=== PATIENT | female | born 1950 | race Caucasian/White ===

== ENCOUNTER → 2016-12-01 | Outpatient (CLI) | payer MEDICAID ==
[~2016-12-01] MED LIST: ALBU8.5H2 IH; ALPR2TAB2; AMIT100T2; AMIT100T2 PO; ATEN-155 PO; ATEN100T88 PO; ATEN25TA PO; ATENOLOL; AZIT-21 PO; BACL10TA; BACL10TA PO; BACL20TA PO; BISO1TAB39; BISOPROLOL-HCTZ; BSP5T PO; BUTA-167; BUTA-167 PO; CATHETER FLUSH 10 ML SYR IV PRN; CEFD300C3 PO; CIPR500T4 PO; CIPR500T78 PO; CODE118S2 PO; CPR250T PO; CPR500T; CPR500T PO; CYCL10TA9 PO; CYCL5TAB PO; DCS100C PO; DIAZ10TA; DIAZ10TA PO; DIAZ2TAB2 PO; DIAZ5TAB3; DIAZ5TAB3 PO; DICY20TA10 PO; DOXY100C2 PO; DULO20CA PO; DULO60CA6 PO; EST.625T; EST.625T PO; EST45C VG; ESTR42.52 VG; EYE; FLT05NA16; FLUO20CA25; FURO20TA4 PO; GLYB1.253 PO; HYDR-2890 PO; HYDR-34 PO; HYDR-3454 PO; HYDR-3720 PO; HYDR12.56 PO; HYDR12.570; HYDR1TAB86 PO; HYDR50TA3 PO; IOHEXOL 350 MG/ML 100 ML (OMNIPAQUE 350) VIAL IV ONE; LANS30CA PO; LEVO250T11 PO; LEVO500T69 PO; LEVO750T6 PO; LNS30CCR; LNS30CCR PO; LVF500T; MECL12.579 PO; MECL25TA56; MELO-198 PO; NAPR500T72; NFR150C PO; NITR-65 PO; NITR100C; NITR100C10 PO; NITR100C3 PO; NITR50CA4 PO; NS 100 ML (IVPB) BAG IV ONE; OMEP-10 PO; ONDAN4ODT; ONDAN4ODT PO; OXB5T; OXYC-109 PO; OXYC-12 PO; OXYC-176; OXYC-190; OXYC1TAB3; PENT100C5 PO; PHEN100T26 PO; PHEN200T27; PHEN200T27 PO; PNT40TEC PO; PRD20T PO; PRED20TA PO; PREG150C; PREG225C PO; PREMARIN; SCOP1PAT TD; SULF1TAB38 PO; TRAM-21 PO; ZLP10T; ZLP10T PO; [UNRECOGNIZED DRUG - CODE]; [UNRECOGNIZED DRUG - REMARK]; macrobid
[2016-12-01 13:37] LABS: BLOOD UREA NITROGEN 17 MG/DL (7-18); CREATININE SERUM 0.88 MG/DL (0.60-1.30); GFR ESTIMATED > 60
--- NOTE | 2016-12-01 14:41 | Diagnostic Imaging Report ---
PROCEDURE: CT abdomen with contrast only. TECHNIQUE: Multiple contiguous axial images were obtained through the abdomen after the administration of intravenous contrast. INDICATION: Left flank pain. Comparison made to prior examination 04/15/2009. FINDINGS: The lung bases are clear. There is fatty infiltration of the liver. The gallbladder is unremarkable. There is no biliary ductal dilatation. Spleen is normal. The pancreas and adrenal glands are unremarkable. There are tiny cysts in the right kidney. There is slightly irregular perfusion in the superior aspect of the left kidney. This is nonspecific, however, may reflect pyelonephritis. Aorta is nonaneurysmal. The bowel gas pattern is nonspecific. There is no free air. There is no ascites. No focal inflammatory changes. There are degenerative changes in the spine. IMPRESSION: Fatty infiltration of the liver. Asymmetric perfusion in the superior aspect of the left kidney. This is nonspecific, however, may reflect focal pyelonephritis or less likely an infiltrative process. Recommend clinical correlation and if warranted followup with ultrasound correlation. Dictated by: Dictated on workstation # [id number]
== END ==
LOC: RAD 12:47
PROVIDERS: ATTEND Nurse Practitioner Community Health
DX: K76.0 Fatty (change of) liver, not elsewhere classified (principal); N28.9 Disorder of kidney and ureter, unspecified
CPT/HCPCS: 36415; 74160; 82565; 84520

== ENCOUNTER → 2016-12-06 | Outpatient (CLI) | payer MEDICAID ==
[~2016-12-06] MED LIST changes: -CATHETER FLUSH 10 ML SYR IV PRN; -IOHEXOL 350 MG/ML 100 ML (OMNIPAQUE 350) VIAL IV ONE; -NS 100 ML (IVPB) BAG IV ONE
[2016-12-06 13:34] LABS: BILIRUBIN,URINE NEGATIVE (NEGATIVE); KETONES,URINE NEGATIVE (NEGATIVE); LEUKOCYTE ESTERASE ,URINE 3+ (NEGATIVE); NITRITE,URINE NEGATIVE (NEGATIVE); PH,URINE 7 (5-9); PROTEIN,URINE NEGATIVE (NEGATIVE); UROBILINOGEN,URINE NORMAL (NORMAL)
[2016-12-06 13:44] LABS: WBC,URINE TNTC /HPF
[2016-12-06 13:45] LABS: RENAL EPITHELIAL CELLS,URINE 0-2 /HPF
== END ==
PROVIDERS: ATTEND Internal Medicine
DX: R93.49 Abnormal radiologic findings on diagnostic imaging of other urinary organs (principal)
CPT/HCPCS: 81000; 87088; 87186

== ENCOUNTER → 2017-06-21 | Outpatient (CLI) | payer MEDICAID ==
--- NOTE | 2017-06-21 09:52 | Diagnostic Imaging Report ---
INDICATION: Palpable lump in the right breast. COMPARISON: 01/02/2015 and 08/30/2013. TECHNIQUE: Digital diagnostic mammography was performed bilaterally with a Computer Aided Detection (CAD) system. FINDINGS: Moderate parenchymal densities are identified bilaterally. There is a circumscribed ovoid mass in the upper and slightly outer aspect of the right breast retroareolar region. This does have some benign-appearing calcifications along the margin. No other mass is seen. The overall parenchymal pattern is stable. The axillae are unremarkable. Benign calcifications on the left are noted. IMPRESSION: No mammographic features suspicious for malignancy are identified. Ultrasound of the area of palpable abnormality in the right breast is recommended for further evaluation. ACR BI-RADS Category 0: Incomplete. (Needs additional imaging evaluation). Result letter will be mailed to the patient. Note: At least 10% of breast cancer is not imaged by mammography. Dictated by: Dictated on workstation # [id number]
--- NOTE | 2017-06-21 12:07 | Diagnostic Imaging Report ---
INDICATION: Palpable lump in the right breast. COMPARISON: Correlation is made with the diagnostic mammogram from earlier the same day. FINDINGS: Sonographic interrogation of the area of palpable abnormality in the right breast was performed. This does correspond to the 9 o'clock location 3 cm from the nipple. There is an 8 mm x 6 mm x 7 mm hypoechoic mass at this location suggestive of a cyst. This does show some internal debris, consistent with a complex cyst. No other mass is identified. IMPRESSION: Complex cyst at the 9 o'clock location of the right breast corresponding to the patient's palpable abnormality. Continued followup right breast ultrasound in 3-6 months is recommended to confirm stability. ACR BI-RADS Category 3: Probably benign findings. Dictated by: Dictated on workstation # [id number]
== END ==
LOC: RAD 09:14
PROVIDERS: ATTEND Nurse Practitioner Community Health
DX: N60.01 Solitary cyst of right breast (principal)
CPT/HCPCS: 77066

== ENCOUNTER → 2017-06-23 | Outpatient (CLI) | payer MEDICAID ==
[2017-06-23 14:58] LABS: BILIRUBIN,URINE NEGATIVE (NEGATIVE); CLARITY,URINE CLEAR; COLOR,URINE YELLOW; GLUCOSE, URINE (UA) NEGATIVE (NEGATIVE); KETONES,URINE NEGATIVE (NEGATIVE); LEUKOCYTE ESTERASE ,URINE 2+ (NEGATIVE); NITRITE,URINE NEGATIVE (NEGATIVE); PH,URINE 7 (5-9); PROTEIN,URINE NEGATIVE (NEGATIVE); UROBILINOGEN,URINE NORMAL (NORMAL)
[2017-06-23 15:37] LABS: BACTERIA,URINE LARGE /HPF
== END ==
PROVIDERS: ATTEND Internal Medicine
DX: R30.0 Dysuria (principal); R35.0 Frequency of micturition; R39.15 Urgency of urination
CPT/HCPCS: 81000; 87077; 87088; 87186

== ENCOUNTER 2017-06-30 18:29 | Emergency (ER) | payer MEDICAID ==
[~2017-06-30] VITALS: Ht 165.1 cm; Wt 90.7 kg
--- OUTSIDE RECORDS SUMMARY | 2017-06-30 18:37 | XMS REPORT ---
Author ELAN Mcmahon [facility] eClinicalWorks Address Unknown Phone Unavailable Care Team Providers Care School Lunch Manager Name Role Phone ELAN DUMONT CP Unavailable Allergies, Adverse Reactions, Alerts Substance Reaction Event Type Sulfa(sulfonamide Antibiotics) Info Not Available Non Drug Allergy Penicillins Info Not Available Non Drug Allergy Problems Problem Type Condition Code Onset Dates Condition Status Assessment Neurogenic bladder N31.9 Active Assessment Lumbar disc disease M51.9 Active Assessment Polyneuropathy associated with underlying disease G63 Active Problem Lumbar disc disease M51.9 Active Problem Polyneuropathy associated with underlying disease G63 Active Problem Type 2 diabetes mellitus without complication, without long-term current use of insulin E11.9 Active Problem Pain in joint, ankle and foot 719.47 Active Assessment Type 2 diabetes mellitus without complication, without long-term current use of insulin E11.9 Active Problem Neurogenic bladder N31.9 Active Problem Hallux rigidus 735.2 Active Medications Medication Code System Code Instructions Start Date End Date Status Dosage Levsin [facility] [address]-37 0.125 MG Orally every 4 hrs as needed for restlesness, excessive secreations 1 tablet before meals as needed Hydrocodone-Acetaminophen [facility] [address]-34 5-325 MG Orally 3 times a day 1 tablet Dicyclomine HCl [facility] [address]-42 20 mg Orally 3 times a day 1 tablet Meloxicam [facility] [address]-23 7.5 MG Orally Once a day as needed for pain 1 tablet Omeprazole [facility] [address]-68 20 mg Orally Once a day 2 tablets Lyrica [facility] [address]-38 225 MG Orally 2 times a day 1 capsule Duloxetine HCl [facility] [address]-25 60 mg Orally Once a day 1 capsule Hydrochlorothiazide [facility] [address]-86 12.5 MG Orally twice a day 1 capsule Furosemide [facility] [address]-71 20 mg Orally Once a day 1 tablet Polysaccharide Iron Complex [facility] [address]-17 150 MG Orally Twice a day 1 capsule Glimepiride [facility] [address]-56 4 MG Orally Once a day 1 tablet with breakfast or the first main meal of the day Metformin HCl [facility] [address]-05 500 MG Orally Twice a day 1 tablet with meals Atenolol [facility] [address]-83 25 MG Orally Once a day 1 tablet Procedures Procedure Coding System Code Date LAB [facility] CPT-4 NOBLL Dec 31, 2015 VENIPUNCT, ROUTINE* CPT-4 09827 Dec 31, 2015 GLYCATED HEMOGLOBIN TEST CPT-4 34839 Dec 31, 2015 Office Visit, Est Pt., Level 3 CPT-4 97484 Dec 31, 2015 Vital Signs Date/Time: Dec 31, 2015 Cardiac Monitoring Heart Rate 80 bpm Weight 229.5 lbs Height 59.5 in BMI 45.57 Index Blood Pressure Diastolic 70 mmHg Blood Pressure Systolic 118 mmHg Results Name Result Date Reference Range Unit Abnormality Flag CMP ----Calcium, Serum 9.3 20151231 8.7-10.3 mg/dL ----Carbon Dioxide, Total 27 20151231 18-29 mmol/L ----ALT (SGPT) 25 20151231 0-32 IU/L ----Creatinine, Serum 0.76 20151231 0.57-1.00 mg/dL ----AST (SGOT) 23 20151231 0-40 IU/L ----eGFR If NonAfricn Am 82 [id number] >59 mL/min/1.73 ----Alkaline Phosphatase, S 94 20151231 39-117 IU/L ----eGFR If Africn Am 95 [id number] >59 mL/min/1.73 ----Bilirubin, Total 0.3 20151231 0.0-1.2 mg/dL ----BUN/Creatinine Ratio 13 20151231 11-26 ----A/G Ratio 1.7 20151231 1.1-2.5 ----Sodium, Serum 142 20151231 134-144 mmol/L ----Globulin, Total 2.6 20151231 1.5-4.5 g/dL ----Potassium, Serum 3.8 20151231 3.5-5.2 mmol/L ----Glucose, Serum 206 20151231 65-99 mg/dL H ----Chloride, Serum 98 20151231 97-108 mmol/L ----Albumin, Serum 4.3 20151231 3.6-4.8 g/dL ----BUN 10 20151231 8-27 mg/dL ----Protein, Total, Serum 6.9 20151231 6.0-8.5 g/dL ROUTINE VENIPUNCTURE A1C ----Hemoglobin A1c 7.1 20151231 4.8-5.6 % H Summary Purpose eClinicalWorks Submission
--- OUTSIDE RECORDS SUMMARY | 2017-06-30 18:37 | XMS REPORT ---
Author Author LAURIE MAHAJAN Organization [employer] Address Unknown Phone Unavailable Care Team Providers Care Laboratory Inspector Name Role Phone LAURIE MAHAJAN CP Unavailable Allergies No Known Allergies Problems Problem Type Condition Code Onset Dates Condition Status Problem Lumbar disc disease M51.9 Active Problem Polyneuropathy associated with underlying disease G63 Active Problem Type 2 diabetes mellitus without complication, without long-term current use of insulin E11.9 Active Problem Pain in joint, ankle and foot 719.47 Active Problem Neurogenic bladder N31.9 Active Problem Hallux rigidus 735.2 Active Medications Medication Code System Code Instructions Start Date End Date Status Dosage Seroquel [facility] [address]-80 25 MG Orally Once a day at Feb 10, 2016 1 tablet Results No Known Results Summary Purpose eClinicalWorks Submission
--- OUTSIDE RECORDS SUMMARY | 2017-06-30 18:37 | XMS REPORT | Clinical Summary ---
Author Author [facility] Address Unknown Phone Unavailable Care Team Providers Care Roll Line Operator Name Role Phone Nicholas Harper MD PCP Nicholas Harper MD Unavailable Emile Garcia MD Unavailable Aldo Berg MD Unavailable Adam Tirado MD Unavailable Christina Peañ RN Unavailable Unavailable Kamran Mcclain MD Unavailable Dann Moy MD Unavailable Lemuel Chavez MD Unavailable Sarah Talbert RN Unavailable Unavailable Source Comments Some departments are not documenting in the electronic medical record. If you do not see the information that you expected, contact Release of Information in the Health Information Management department at [phone] for further assistance in locating additional records.[facility] Allergies Active Allergy Reactions Severity Noted Date Comments Penicillins RASH Medium 01/31/2015 Penicillins ANAPHYLAXIS High 06/18/2014 Current Medications Prescription Sig. Disp. Refills Start End Date Status Date atenolol (TENORMIN) 25 mg Take 25 mg by mouth twice Active tablet daily. hydrochlorothiazide Take 12.5 mg by mouth Active (HYDRODIURIL) 12.5 mg Tab twice daily. tablet furosemide (LASIX) 20 mg Take 20 mg by mouth Active tablet daily. glyBURIDE (DIABETA) 1.25 Take 1.25 mg by mouth Active mg tablet twice daily with meals. polysaccharide iron Take 150 mg by mouth Active complex (POLY-IRON) 150 twice daily. mg iron capsule DULoxetine DR (CYMBALTA) Take 60 mg by mouth Active 60 mg capsule daily. pregabalin (LYRICA) 225 Take 225 mg by mouth Active mg capsule twice daily. estradiol (ESTRACE) 0.01 Insert or Apply 1 g to Active % (0.1 mg/g) vaginal vaginal area at bedtime cream as needed. Miscellaneous Medical Chux pads 1 box 100 Each 12 08/09/19 Active Supply pads 15 oxybutynin XL (DITROPAN Take 1 Tab by mouth 90 Tab 3 09/06/19 Active XL) 10 mg tablet daily. Do not cut/ crush/ 15 chew CYCLOBENZAPRINE HCL Take by mouth. Active (FLEXERIL PO) dicyclomine (BENTYL) 20 Take 20 mg by mouth every Active mg tablet 6 hours. glimepiride (AMARYL) 4 mg Take 4 mg by mouth daily Active tablet with breakfast. HYDROcodone/acetaminophen Take 1 Tab by mouth every Active (NORCO; VICODIN) 5-325 mg 4 hours as needed for tablet Pain lansoprazole DR(+) Take 30 mg by mouth Active (PREVACID) 30 mg capsule daily. metFORMIN-XR(+) Take 500 mg by mouth Active (GLUCOPHAGE XR) 500 mg daily with dinner. tablet omeprazole DR(+) Take 40 mg by mouth Active (PRILOSEC) 40 mg capsule daily. meloxicam (MOBIC) 7.5 mg Take 7.5 mg by mouth Active tablet daily. hyoscyamine (LEVSIN/SL) TAKE ONE TABLET BY MOUTH 30 Tab 3 05/14/19 Active 0.125 mg tablet EVERY FOUR HOURS 16 NEEDED FOR CRAMPS Active Problems Problem Noted Date Neurogenic bladder 08/29/2014 Overview: 08/29/14: VUDS showing normal capacity bladder with atonic bladder L ast Assessment & Plan: - Recommend continuing CIC QID instead of TID - Will have her return to clinic in 6 months for evaluation Closed fracture of right humerus 02/11/2012 Osteoarthrosis, unspecified whether generalized or localized, unspecified site Immunizations Name Dates Previously Given Next Due Pneumococcal Vaccine 02/04/2012 (23-Amanda Adult) Tdap Vaccine 02/04/2012 Family History Medical History Relation Name Comments Hypertension Father Asthma Mother Cancer Mother Seizures Mother Stroke Mother Relation Name Status Comments Father Mother Social History Tobacco Use Types Packs/Day Years Used Date Former Smoker 0.5 Comments: STOPS AND STARTS Alcohol Use Drinks/Week oz/Week Comments No 0 Standard 0.0 drinks or equivalent Sex Assigned at Date Recorded Not on file Last Filed Vital Signs Vital Sign Reading Time Taken Blood Pressure 124/86 07/25/2015 3:20 PM CDT Pulse 70 07/25/2015 3:20 PM CDT Temperature 36.7 C (98 F) 07/25/2015 3:05 PM CDT Respiratory Rate 18 07/25/2015 1:12 PM CDT Oxygen Saturation 96% 07/25/2015 3:20 PM CDT Inhaled Oxygen - - Concentration Weight 90.7 kg (200 lb) 07/25/2015 1:12 PM CDT Height 152.4 cm (5') 07/25/2015 1:12 PM CDT Body Mass Index 39.06 07/25/2015 1:12 PM CDT Plan of Treatment Health Maintenance Due Date Last Done Comments HEPATITIS C SCREENING 1949 PHYSICAL (COMPREHENSIVE) 1956 EXAM BREAST CANCER SCREENING 1989 COLORECTAL CANCER 12/07/1999 SCREENING SHINGLES VACCINE 2009 OSTEOPOROSIS SCREENING 2014 PREVNAR/PNEUMOVAX (#1) 2014 02/04/2012 INFLUENZA VACCINE 01/03/2018 TETANUS VACCINE 02/03/2022 02/04/2012 PERTUSSIS VACCINE Completed 02/04/2012 Results Not on filefrom Last 3 Months
--- OUTSIDE RECORDS SUMMARY | 2017-06-30 18:37 | XMS REPORT ---
Author Author LAURIE MAHAJAN [facility] Address [address] [place] [address] Care Team Providers Care Lawyer Real Estate Name Role Phone LAURIE MAHAJAN Unavailable PROBLEMS Type Condition ICD9-CM Code [id number] Code Onset Dates Condition Status SNOMED Code Assessment Other chronic pain G89.29 14 Dec, 2015 Active 50279635 Problem Type 2 diabetes mellitus without complication, without long-term current use of insulin E11.9 Active 167784183 Problem Lumbar disc disease M51.9 Active 53581178 Problem Hallux rigidus 735.2 Active 1268623 Problem Pain in joint, ankle and foot 719.47 Active 828524822 Problem Polyneuropathy associated with underlying disease G63 Active 916766583 Problem Neurogenic bladder N31.9 Active 524639456 ALLERGIES Unknown Allergies SOCIAL HISTORY No smoking Hx information available PLAN OF CARE VITAL SIGNS MEDICATIONS Medication Instructions Dosage Frequency Start Date End Date Duration Status Lyrica 225 MG Orally 2 times a day 1 capsule 12h 28 Active RESULTS No Results PROCEDURES No Known procedures IMMUNIZATIONS No Known Immunizations
--- OUTSIDE RECORDS SUMMARY | 2017-06-30 18:38 | XMS REPORT ---
Author Author ELAN DUMONT [facility] Address [address] [place] [address] Care Team Providers Care Claim Auditor Name Role Phone ELAN DUMONT Unavailable PROBLEMS Type Condition ICD9-CM Code [id number] Code Onset Dates Condition Status SNOMED Code Problem Fibromyalgia M79.7 Active 740567156 Problem Meniere disease, unspecified laterality H81.09 Active 90229412 Problem Irritable bowel syndrome with diarrhea K58.0 Active 952043740 Problem Psychosis, unspecified psychosis type F29 Active 94809672 Problem Nicotine abuse Z72.0 Active 36059195 Problem Chronic pain disorder G89.4 Active 308534014 Problem Other chronic pain G89.29 Active 86171433 Problem Insomnia, unspecified type G47.00 Active 072539391 Problem Polyneuropathy associated with underlying disease G63 Active 841620540 Problem Lumbar disc disease M51.9 Active 93603734 Problem Type 2 diabetes mellitus without complication, without long-term current use of insulin E11.9 Active 943556705 Problem Neurogenic bladder N31.9 Active 099654271 ALLERGIES Unknown Allergies SOCIAL HISTORY No smoking Hx information available PLAN OF CARE VITAL SIGNS MEDICATIONS Medication Instructions Dosage Frequency Start Date End Date Duration Status Mirtazapine 15 MG Orally Once a day 1 tablet at bedtime 24h Apr, 30 day(s) Active Atenolol 25 MG Orally Once a day 1 tablet 24h 30 days Active RESULTS No Results PROCEDURES No Known procedures IMMUNIZATIONS No Known Immunizations
--- OUTSIDE RECORDS SUMMARY | 2017-06-30 18:38 | XMS REPORT ---
Author Author ELAN DUMONT Organization [employer] Address Unknown Phone Unavailable Care Team Providers Care Field Crew Chief Name Role Phone ELAN DUMONT CP Unavailable Allergies No Known Allergies Problems Problem Type Condition Code Onset Dates Condition Status Problem Pain in joint, ankle and foot 719.47 Active Problem Hallux rigidus 735.2 Active Medications Medication Code System Code Instructions Start Date End Date Status Dosage Lyrica [facility] [address]-68 225 MG Orally Twice a day PT [facility] Dr[facility] Dumont to sign for Ilsa 1 capsule Hydrocodone-Acetaminophen [facility] [address]-22 5-325 MG Orally 3 times a day PT IN [facility] Dr. Dumont to sign for Ilsa 1 tablet Results No Known Results Summary Purpose eClinicalWorks Submission
--- OUTSIDE RECORDS SUMMARY | 2017-06-30 18:38 | XMS REPORT ---
Author Author LAURIE MAHAJAN Organization [employer] Address Unknown Phone Unavailable Care Team Providers Care Fuel Quality Tech Name Role Phone LAURIE MAHAJAN CP Unavailable [...] Instructions Start Date End Date Status Dosage Hydrocodone-Acetaminophen [facility] [address]-92 7.5-325 MG Orally 3 times a day 1 tablet Results No Known Results Summary Purpose eClinicalWorks Submission
--- OUTSIDE RECORDS SUMMARY | 2017-06-30 18:39 | XMS REPORT ---
Author Author ELAN DUMONT [facility] Address [address] [place] [address] Care Team Providers Care Reverse Unit Operator Name Role Phone ELAN DUMONT Unavailable PROBLEMS Type Condition ICD9-CM Code [id number] Code Onset Dates Condition Status SNOMED Code Problem Fibromyalgia M79.7 Active 695851585 Problem Meniere disease, unspecified laterality H81.09 Active 72571085 Problem Irritable bowel syndrome with diarrhea K58.0 Active 174425026 Problem Psychosis, unspecified psychosis type F29 Active 17661297 Problem Nicotine abuse Z72.0 Active 51835208 Problem Chronic pain disorder G89.4 Active 454762609 Problem Other chronic pain G89.29 Active 98062174 Problem Insomnia, unspecified type G47.00 Active 640654967 Problem Polyneuropathy associated with underlying disease G63 Active 155741117 Problem Lumbar disc disease M51.9 Active 44395924 Problem Type 2 diabetes mellitus without complication, without long-term current use of insulin E11.9 Active 456498530 Problem Neurogenic bladder N31.9 Active 641905771 ALLERGIES No Information SOCIAL HISTORY Never Assessed PLAN OF CARE VITAL SIGNS MEDICATIONS Medication Instructions Dosage Frequency Start Date End Date Duration Status Cipro 500 mg Orally Twice a day 1 tablet 12h August, August, 07 days Active RESULTS No Results PROCEDURES No Known procedures IMMUNIZATIONS No Known Immunizations MEDICAL (GENERAL) HISTORY Type Description Date Medical History Primary generalized osteoarthritis Medical History Type II Diabetes mellitus Medical History Anxiety disorder, unspecified Medical History chronic pain syndrome Medical History Meniere's disease Medical History Essential primary Hypertension Medical History Gastro-esophageal reflux disease without espophagitis Medical History Irritable bowel syndrome with diarrhea Medical History low back pain Medical History fibromyalgia Medical History cystitis, unspecified without hematuria Medical History bladder disorder unspecified Medical History personal history of urinary tract infections Medical History Psychosis, unspecified psychosis type Medical History Nicotine abuse Medical History Irritable bowel syndrome with diarrhea Medical History Chronic pain disorder Medical History Fibromyalgia Medical History Meniere disease, unspecified laterality Surgical History hysterectomy Surgical History Great toe on left foot has titanium in it. Surgical History appendectomy Surgical History ear surgery x 3 for Menieres Surgical History bladder fixed Surgical History rectocele/cystocele Surgical History broken humerous on right arm x 2 Hospitalization History low potassium Hospitalization History bladder issues Hospitalization History hallucinations
--- OUTSIDE RECORDS SUMMARY | 2017-06-30 18:39 | XMS REPORT ---
Author Author LAURIE MAHAJAN Organization [employer] Address Unknown Phone Unavailable Care Team Providers Care Sand Technologist Name Role Phone LAURIE MAHAJAN CP Unavailable Allergies No Known Allergies Problems Problem Type Condition Code Onset Dates Condition Status Problem Pain in joint, ankle and foot 719.47 Active Problem Hallux rigidus 735.2 Active Medications No Known Medications Results No Known Results Summary Purpose eClinicalWorks Submission
--- OUTSIDE RECORDS SUMMARY | 2017-06-30 18:39 | XMS REPORT ---
Author ELAN Mcmahon [facility] eClinicalWorks Address Unknown Phone Unavailable Care Team Providers Care Medical Education Specialist Name Role Phone ELAN DUMONT CP Unavailable [...]
--- OUTSIDE RECORDS SUMMARY | 2017-06-30 18:39 | XMS REPORT ---
Author Author [facility] Medical Staff Organization [facility] Address [address] [place], [place] [address] Phone [phone] Care Team Providers Care Motorcoach Driver Name Role Phone ELAN DUMONT MD PP [phone] Summary purpose [facility]A Sent to [facility] Chief Complaint and Reason for Visit No authorized Reason for Visit (Admitting Diagnosis) is available for this visit. Problem list No authorized problems tracked for continuity of care are available for this visit. Encounters No authorized problems tracked for encounter diagnoses are available for this visit. Medications No medications recorded for this patient visit Allergies, adverse reactions, alerts Allergen Category Ingredient Status Reaction Severity Onset Penicillins Drug Penicillins Active Sulfa (Sulfonamide Antibiotics) Drug Sulfa (Sulfonamide Antibiotics) Active Immunizations No immunizations recorded for this patient visit Relevant diagnostic tests and/or laboratory data No authorized results are available for this patient visit History of procedures Procedure Code Code Type Description Date Performed Performing Physician 17443 CPT-4 ELECTROCARDIOGRAM REPORT 03-04-2016 WINSTON SEYMOUR Functional status No functional or cognitive status observations are available for this visit. Vital signs No authorized vital signs are available for this visit. Social history No Social History or smoking status observations were recorded for this visit. ( Unknown if ever smoked.) Treatment Plan No treatment plan text is available for this visit. Hospital discharge instructions No discharge instruction text is available for this visit.
--- OUTSIDE RECORDS SUMMARY | 2017-06-30 18:39 | XMS REPORT ---
Author Author LAURIE MAHAJAN [facility] Address [address] [place] [address] Care Team Providers Care Hazardous Waste Technician Name Role Phone LAURIE MAHAJAN Unavailable PROBLEMS Type Condition ICD9-CM Code [id number] Code Onset Dates Condition Status SNOMED Code Problem Fibromyalgia M79.7 Active 422976009 Problem Meniere disease, unspecified laterality H81.09 Active 90417612 Problem Irritable bowel syndrome with diarrhea K58.0 Active 241358991 Problem Psychosis, unspecified psychosis type F29 Active 79240499 Problem Nicotine abuse Z72.0 Active 24089069 Problem Chronic pain disorder G89.4 Active 634063863 Problem Other chronic pain G89.29 Active 97462364 Problem Insomnia, unspecified type G47.00 Active 788565000 Problem Polyneuropathy associated with underlying disease G63 Active 918514117 Problem Lumbar disc disease M51.9 Active 96621436 Problem Type 2 diabetes mellitus without complication, without long-term current use of insulin E11.9 Active 230708964 Problem Neurogenic bladder N31.9 Active 270810438 ALLERGIES No Information SOCIAL HISTORY Never Assessed PLAN OF CARE VITAL SIGNS MEDICATIONS Medication Instructions Dosage Frequency Start Date End Date Duration Status Hydrocodone-Acetaminophen 7.5-325 MG Orally 3 times a day 1 tablet 8h August, 28 days Active RESULTS No Results PROCEDURES No [...]
--- OUTSIDE RECORDS SUMMARY | 2017-06-30 18:39 | XMS REPORT ---
Author Author LAURIE MAHAJAN [facility] Address [address] [place] [address] Care Team Providers Care Research & Insights Executive Name Role Phone LAURIE MAHAJAN Unavailable PROBLEMS Type Condition ICD9-CM Code [id number] Code Onset Dates Condition Status SNOMED Code Problem Fibromyalgia M79.7 Active 122696999 Problem Meniere disease, unspecified laterality H81.09 Active 99601430 Problem Irritable bowel syndrome with diarrhea K58.0 Active 393093536 Problem Psychosis, unspecified psychosis type F29 Active 36330328 Problem Nicotine abuse Z72.0 Active 04921939 Problem Chronic pain disorder G89.4 Active 777580101 Problem Other chronic pain G89.29 Active 39634339 Problem Insomnia, unspecified type G47.00 Active 185595957 Problem Polyneuropathy associated with underlying disease G63 Active 874908041 Problem Lumbar disc disease M51.9 Active 95143808 Problem Type 2 diabetes mellitus without complication, without long-term current use of insulin E11.9 Active 290161893 Problem Neurogenic bladder N31.9 Active 309741420 ALLERGIES Unknown Allergies SOCIAL HISTORY No smoking Hx information available PLAN OF CARE VITAL SIGNS MEDICATIONS Medication Instructions Dosage Frequency Start Date End Date Duration Status Pantoprazole Sodium 40 mg Orally Once a day 1 tablet 24h 30 days Active RESULTS No Results PROCEDURES No Known procedures IMMUNIZATIONS No Known Immunizations
--- OUTSIDE RECORDS SUMMARY | 2017-06-30 18:39 | XMS REPORT ---
Author Author LAURIE MAHAJAN [facility] Address [address] [place] [address] Care Team Providers Care Cookie Breaker Name Role Phone LAURIE MAHAJAN Unavailable PROBLEMS Type Condition ICD9-CM Code MJP83-[id number] Code Onset Dates Condition Status SNOMED Code Problem Fibromyalgia M79.7 Active 052948894 Problem Meniere disease, unspecified laterality H81.09 Active 75210653 Problem Irritable bowel syndrome with diarrhea K58.0 Active 479471521 Problem Psychosis, unspecified psychosis type F29 Active 60480559 Problem Nicotine abuse Z72.0 Active 81900242 Problem Chronic pain disorder G89.4 Active 786206721 Problem Other chronic pain G89.29 Active 05281560 Problem Insomnia, unspecified type G47.00 Active 088272312 Problem Polyneuropathy associated with underlying disease G63 Active 053922192 Problem Lumbar disc disease M51.9 Active 89563084 Problem Type 2 diabetes mellitus without complication, without long-term current use of insulin E11.9 Active 976512931 Problem Neurogenic bladder N31.9 Active 662272068 ALLERGIES No Information SOCIAL HISTORY Never Assessed PLAN OF CARE VITAL SIGNS MEDICATIONS Medication Instructions Dosage Frequency Start Date End Date Duration Status Furosemide 20 mg Orally Once a day 1 [...]
--- OUTSIDE RECORDS SUMMARY | 2017-06-30 18:39 | XMS REPORT ---
Author Author LAURIE MAHAJAN Organization [employer] Address Unknown Phone Unavailable Care Team Providers Care Underground Electrician Name Role Phone LAURIE MAHAJAN CP Unavailable Allergies No Known Allergies Problems Problem Type Condition Code Onset Dates Condition Status Assessment Insomnia, unspecified type G47.00 Active Assessment Swelling of face R22.0 Active Problem Type 2 diabetes mellitus without complication, without long-term current use of insulin E11.9 Active Problem Lumbar disc disease M51.9 Active Problem Insomnia, unspecified type G47.00 Active Problem Hallux rigidus 735.2 Active Problem Pain in joint, ankle and foot 719.47 Active Problem Polyneuropathy associated with underlying disease G63 Active Problem Neurogenic bladder N31.9 Active Medications No Known Medications Procedures Procedure Coding System Code Date Stable Visit (10 minutes) CPT-4 88194 Feb 19, 2016 Results No Known Results Summary Purpose [employer] Submission
--- OUTSIDE RECORDS SUMMARY | 2017-06-30 18:40 | XMS REPORT ---
Author Author LAURIE MAHAJAN [facility] Address [address] [place] [address] Care Team Providers Care Networking Technology Instructor Name Role Phone LAURIE MAHAJAN Unavailable PROBLEMS Type Condition ICD9-CM Code ZBX97-MU Code Onset Dates Condition Status SNOMED Code Problem Chronic pain disorder G89.4 Active 996779135 Problem Meniere disease, unspecified laterality H81.09 Active 84427050 Problem Fibromyalgia M79.7 Active 473660499 Problem Psychosis, unspecified psychosis type F29 Active 78348686 Problem Nicotine abuse Z72.0 Active 63800508 Problem Irritable bowel syndrome with diarrhea K58.0 Active 059042146 Problem Other chronic pain G89.29 Active 10122935 Problem Insomnia, unspecified type G47.00 Active 288457912 Problem Polyneuropathy associated with underlying disease G63 Active 213114008 Problem Neurogenic bladder N31.9 Active 718471913 Problem Type 2 diabetes mellitus without complication, without long-term current use of insulin E11.9 Active 481140886 Problem Lumbar disc disease M51.9 Active 99715710 ALLERGIES Unknown Allergies SOCIAL HISTORY No smoking Hx information available PLAN OF CARE VITAL SIGNS MEDICATIONS Unknown Medications RESULTS No Results PROCEDURES No Known procedures IMMUNIZATIONS No Known Immunizations
--- OUTSIDE RECORDS SUMMARY | 2017-06-30 18:40 | XMS REPORT ---
Author Author LAURIE MAHAJAN [facility] Address [address] [place] [address] Care Team Providers Care Right Of Way Appraiser Name Role Phone LAURIE MAHAJAN Unavailable PROBLEMS Type Condition ICD9-CM Code RNN88-JP Code Onset Dates Condition Status SNOMED Code Problem Pain in joint, ankle and foot 719.47 Active 934108870 Problem Insomnia, unspecified type G47.00 Active 643738908 Problem Type 2 diabetes mellitus without complication, without long-term current use of insulin E11.9 Active 173368834 Problem Neurogenic bladder N31.9 Active 619407141 Problem Hallux rigidus 735.2 Active 1929580 Problem Lumbar disc disease M51.9 Active 75321505 Problem Polyneuropathy associated with underlying disease G63 Active 501352675 ALLERGIES Unknown Allergies SOCIAL HISTORY No smoking Hx information available PLAN OF CARE VITAL SIGNS MEDICATIONS Medication Instructions Dosage Frequency Start Date End Date Duration Status Hydrocodone-Acetaminophen 7.5-325 MG Orally 3 times a day 1 tablet 8h 30 days Active RESULTS No Results PROCEDURES No Known procedures IMMUNIZATIONS No Known Immunizations
--- OUTSIDE RECORDS SUMMARY | 2017-06-30 18:40 | XMS REPORT ---
Author Author LAURIE MAHAJAN [facility] Address [address] [place] [address] Care Team Providers Care Load Builder Name Role Phone LAURIE MAHAJAN Unavailable PROBLEMS Type Condition ICD9-CM Code OYW76-HX Code Onset Dates Condition Status SNOMED Code Assessment Gastroesophageal reflux disease without esophagitis K21.9 Nov, Active 577382971 Assessment Essential hypertension I10 Nov, Active 86007882 Assessment Anxiety F41.9 Nov, Active 17926866 Assessment Iron deficiency anemia, unspecified iron deficiency anemia type D50.9 Nov, Active 77778554 Assessment Chronic urinary tract infection N39.0 Nov, Active 579365032 Assessment Irritable bowel syndrome, unspecified type K58.9 Nov, Active 10570142 Problem Hallux rigidus 735.2 Active 4496768 Problem Pain in joint, ankle and foot 719.47 Active 154047889 Assessment Sciatica, right side M54.31 Nov, Active 33505372 Assessment Sciatica of left side M54.32 Nov, Active 09378764 Assessment Type 2 diabetes mellitus without complication, without long-term current use of insulin E11.9 Nov, Active 535205639 Assessment Other chronic pain G89.29 Nov, Active 31295139 ALLERGIES Unknown Allergies SOCIAL HISTORY No smoking Hx information available PLAN OF CARE VITAL SIGNS MEDICATIONS Medication Instructions Dosage Frequency Start Date End Date Duration Status Nystatin 989183 UNIT/GM Externally Twice a day 1 application to affected area 12h 18 Nov, 2015 Active Levsin 0.125 MG Orally every 4 hrs as needed for restlesness, excessive secreations 1 tablet before meals as needed Active Lyrica 225 MG Orally 2 times a day 1 capsule 12h 28 Active Meloxicam 7.5 MG Orally Once a day as needed for pain 1 tablet Active Omeprazole 20 mg Orally Once a day 2 tablets 24h Active Nitrofurantoin Macrocrystal 50 mg Orally Once a day 1 capsule with food or milk 24h Active Metformin HCl 500 MG Orally Twice a day 1 tablet with meals 12h Active Duloxetine HCl 60 mg Orally Once a day 1 capsule 24h Active Furosemide 20 mg Orally Once a day 1 tablet 24h Active Hydrochlorothiazide 12.5 MG Orally twice a day 1 capsule 12h Active Glimepiride 4 MG Orally Once a day 1 tablet with breakfast or the first main meal of the day 24h Active Atenolol 25 MG Orally Once a day 1 tablet 24h Active Hydrocodone-Acetaminophen 5-325 MG Orally 3 times a day 1 tablet 8h Active Dicyclomine HCl 20 mg Orally 3 times a day 1 tablet 8h Active Polysaccharide Iron Complex 150 MG Orally Twice a day 1 capsule 12h Active RESULTS No Results PROCEDURES Procedure Date Ordered Related Diagnosis Body Site Nursing Facility Discharge (30 minutes) Dec 02, 2015 IMMUNIZATIONS No Known Immunizations
--- OUTSIDE RECORDS SUMMARY | 2017-06-30 18:40 | XMS REPORT ---
Author Author LAURIE MAHAJAN Organization [facility] Address [address] [place] [address] Care Team Providers Care Singeing Torch Operator Name Role Phone LAURIE MAHAJAN Unavailable PROBLEMS Type Condition ICD9-CM Code CJM02-RL Code Onset Dates Condition Status SNOMED Code Problem Irritable bowel syndrome with diarrhea K58.0 Active 167032452 Problem Lumbar disc disease M51.9 Active 67114778 Problem Psychosis, unspecified psychosis type F29 Active 76131052 Problem Meniere disease, unspecified laterality H81.09 Active 18948204 Problem Nicotine abuse Z72.0 Active 66858351 Problem Chronic pain disorder G89.4 Active 978612604 Problem Fibromyalgia M79.7 Active 239354785 Problem Gastroesophageal reflux disease without esophagitis K21.9 Active 254196792 Problem Other chronic pain G89.29 Active 20340562 Problem Neurogenic bladder N31.9 Active 998359535 Problem Polyneuropathy associated with underlying disease G63 Active 541613423 Problem Insomnia, unspecified type G47.00 Active 525537497 Problem Type 2 diabetes mellitus without complication, without long-term current use of insulin E11.9 Active 229903522 ALLERGIES No Information ENCOUNTERS Encounter Location Date Diagnosis [place] [address] [place] [address] Jun, [place] [address], [place] [address] Jun, Fibromyalgia M79.7 [place] [address] [place] [address]77- 9037 12 Jun, 2017 Breast mass, right N63.10 [place] [address] [place] [address]37- 3330 Jun, Breast mass, right N63.[address] [id number] Jun, Breast mass, right N63.10 ; Type 2 diabetes mellitus without complication , without long-term current use of insulin E11.9 and Fibromyalgia M79.7 [facility] [address] [address] Jun, Gastroesophageal reflux disease without esophagitis K21.9 [facility] [address] [place] [id number] [place] [phone] Jun, Lumbar disc disease M51.9 [facility] [address] [address] May, [facility] [id number] [place] [address] [id number] May, [facility] [id number] [place] [address] [phone] May, [facility] [id number] [place] [address] [id number] May, Lumbar disc disease M51.9 [facility] [id number] [place] [address] [id number] Apr, [facility] [address] [id number] Apr, Viral upper respiratory tract infection J06.9 and Impacted cerumen, bilateral H61.23 [facility] [address] [address] [id number] [place] [address] [id number] Apr, [facility] [address] [place] [id number], [place] [address] Apr, [facility] [id number] [place] [address] [id number] Apr, Lumbar disc disease M51.[address] [id number] Mar, Lumbar disc disease M51.9 and Fibromyalgia M79.7 [facility] [address] [place] [address] 01240- 0166 Mar, [facility] [address] [id number] [id number] Feb, [facility] [address] [facility] [id number], [place] [address] Jan, Type 2 diabetes mellitus without complication, without long- term current use of insulin E11.9 [facility] [address] [place] [phone] Jan, Type 2 diabetes mellitus without complication, without long-term current use of insulin E11.9 ; Fibromyalgia M79.7 and Lumbar disc disease M51.9 [facility] [address] [id number] [id number] Jan, [facility] [id number][place] [id number] Jan, [facility] [address] [place] [address] [id number], [place] [address] 2546 Dec, [facility] [id number] [id number] Dec, [facility] [address] [place] [id number] [id number] Dec, [facility] [id number] [id number] Nov, Pre-procedure lab exam Z01.812 [facility] [address] [place] [id number], [place] [address]46 Nov, Ventral hernia without obstruction or gangrene K43.9 [facility] [address] [id number][place] [id number] Nov, [facility] [address] [id number] [id number] Nov, [facility] [address] [place] [id number] Nov, Ventral hernia without obstruction or gangrene K43.9 [facility] [address] [place] [id number] Nov, Fibromyalgia M79.7 and Polyneuropathy associated with underlying disease G63 [facility] [place] [address] [facility] [id number], [place] [address] Oct, [facility] [address] [id number][place] [id number] Oct, [facility] [address] [id number][place] [id number] Oct, [facility] [address] [id number], [place] [id number] Oct, [facility] [address] [place] [id number][place] [id number] Sep, [facility] [place] [address] [facility] [id number], [place] [address] Sep, [facility] [place] [address], [place] [address] Sep, [facility] [place] [address] [place] [id number], [place] [address] August, [facility] [address] [place] [id number] August, Right medial knee pain M25.561 [facility] [address] [id number], [place] [address] August, [facility] [place] [address] [place] [id number], [place] [address] August, [facility] [place] [address] [facility] [id number], [place] [address]- [address] August, [facility] [address] [id number], [place] [id number] August, [facility] [place] [address] [facility] [id number], [place] [address]- [address] August, [facility] [address] [place] [id number][place] [id number] August, [facility] [address] [id number][place] [id number] Jul, [facility] [address] [facility] [id number] [place] [address] Jul, [facility] [address] [id number], [place] [id number] Jul, [facility] [address] [facility] [id number] [place] [address]- [address] Jun, [facility] [address] [id number] [place] [address]- 25[address] Jun, [facility] [address] [facility] [id number] [place] [address]- [address] May, [facility] [address] [facility] [id number] [place] [address] 2546 May, [facility] [id number] [place] [address]- 67[address] May, [facility] [address] [place] [id number], [place] [address] May, [facility] [address] [place] [id number], [place] [address] Apr, [facility] [address] [place] [id number] Apr, Upper respiratory infection with cough and congestion J06.9 [facility] [address] [place] [id number], [place] [id number] Apr, [facility] [address] [facility] [id number], [place] [address] 2546 Apr, [facility] [address] [id number], [place] [address] 2546 Mar, [facility] [address] [facility] [id number] [address]- [address] Mar, [facility] [address] [id number], [place] [address] Mar, Other chronic pain G89.29 [facility] [address] [id number] [place] [address] 70010- 6988 Mar, [facility] [id number] [place] [address] 65327- 9477 Mar, [facility] [address] [id number] [place] [address] 40777- 0755 Feb, [facility] [id number] [place] [address] 25692- 4470 Feb, [facility] [address] [place] [id number] Feb, Insomnia, unspecified type G47.00 and Swelling of face R22.0 [facility] [id number] [place] [address] 50017- 6653 Feb, [facility] [id number] [place] [address] 88239- 9733 Feb, [facility] [id number] [place] [address] 45117- 2873 Feb, [facility] [id number] [place] [address] 99787- 0049 Feb, [facility] [id number] [place] [address] 86767- 7194 24 Jan, 2016 [facility] [id number] [place] [address] 36020- 2647 17 Jan, 2016 [facility] [id number] [place] [address] 42143- 0057 14 Jan, 2016 Neurogenic bladder N31.9 [facility] [address] [id number] [place] [address] 72945- 1871 10 Jan, 2016 [facility] [address] [place] [id number] [place] [address] 80174- 8058 07 Jan, 2016 [facility] [address] [place] [id number] [place] [address] 05278- 9501 Jan, [place] [address], [place] [address]- [address] Jan, [place] [address] [place] [id number] [place] [address] 53626- 5350 Jan, Screening for breast cancer Z12.39 [place] [address] [place] [id number] [place] [address] 39580- 9593 Jan, [place] [address] [place] [id number] [place] [address] 39271- 1976 Dec, Type 2 diabetes mellitus without complication, without long- term current use of insulin E11.9 ; Lumbar disc disease M51.9 ; Polyneuropathy associated with underlying disease G63 and Neurogenic bladder N31.9 [place] [address] [place] [address] 40153- 8672 16 Dec, 2015 [place] [address] [place] [id number] [place] [address] 36946- 7607 Dec, Other chronic pain G89.29 [place] [address] [place] [id number] [place] [address] 32482- 1433 Dec, [place] [address] [place] [id number] [place] [address] 95567- 2527 Nov, [place] [address], [place] [address]- 1259 Nov, [place] [address] [place] [address] 28445- 9683 Nov, Type 2 diabetes mellitus without complication, without long- term current use of insulin E11.9 ; Other chronic pain G89.29 ; Sciatica, right side M54.31 ; Sciatica of left side M54.32 ; Essential hypertension I10 ; Anxiety F41.9 ; Gastroesophageal reflux disease without esophagitis K21.9 ; Irritable bowel syndrome, unspecified type K58.9 ; Chronic urinary tract infection N39.0 and Iron deficiency anemia, unspecified iron deficiency anemia type D50.9 [place] [address], [place] [address]- [address] Nov, [facility] [address], [place] [address]- 5020 Nov, [facility] [address] [facility] [id number], [place] [address]- 1670 Nov, [facility] [address], [place] [address]- 7456 Nov, [facility] [address] [facility] [id number], [place] [address]- 7726 Nov, [facility] [address], [place] [address]- 7812 Nov, [facility] [address], [place] [address]- 1872 Nov, [facility] [address], [place] [address]- 6347 Jul, [facility] [address], [place] [address]- 5456 Jul, [facility] [address], [place] [address]- 6694 August, [facility] [address], [place] [address]- 0780 Jun, [facility] [address] [id number], [place] [address] 4824 Oct, IMMUNIZATIONS No Known Immunizations SOCIAL HISTORY Never Assessed REASON FOR VISIT Controlled Med Refill PLAN OF CARE VITAL SIGNS MEDICATIONS Medication Instructions Dosage Frequency Start Date End Date Duration Status Hydrocodone-Acetaminophen 7.5-325 MG Orally 3 times a day 1 tablet 8h Sep, 28 days Active RESULTS No Results PROCEDURES No Known procedures INSTRUCTIONS MEDICATIONS ADMINISTERED No Known Medications MEDICAL (GENERAL) HISTORY Type Description Date Medical [...]
--- OUTSIDE RECORDS SUMMARY | 2017-06-30 18:40 | XMS REPORT ---
Author Author LAURIE MAHAJAN [facility] Address [address] [place] [address] Care Team Providers Care Home Health Attendant Name Role Phone LAURIE MAHAJAN Unavailable PROBLEMS Type Condition ICD9-CM Code EEV51-CA Code Onset Dates Condition Status SNOMED Code Problem Fibromyalgia M79.7 Active 164186806 Problem Meniere disease, unspecified laterality H81.09 Active 36723765 Problem Irritable bowel syndrome with diarrhea K58.0 Active 613760084 Problem Psychosis, unspecified psychosis type F29 Active 90332347 Problem Nicotine abuse Z72.0 Active 04490084 Problem Chronic pain disorder G89.4 Active 757640980 Problem Other chronic pain G89.29 Active 34942418 Problem Insomnia, unspecified type G47.00 Active 869736940 Problem Polyneuropathy associated with underlying disease G63 Active 790731124 Problem Lumbar disc disease M51.9 Active 74800516 Problem Type 2 diabetes mellitus without complication, without long-term current use of insulin E11.9 Active 588337460 Problem Neurogenic bladder N31.9 Active 398782242 ALLERGIES No Information SOCIAL HISTORY Never Assessed PLAN OF CARE VITAL SIGNS MEDICATIONS Medication Instructions Dosage Frequency Start Date End Date Duration Status Hydrochlorothiazide 12.5 MG Orally twice a day 1 capsule 12h 30 days Active RESULTS No Results PROCEDURES [...]
--- OUTSIDE RECORDS SUMMARY | 2017-06-30 18:40 | XMS REPORT ---
Author Author LAURIE MAHAJAN [facility] Address [address] [place] [address] Care Team Providers Care Attendance Secretary Name Role Phone LAURIE MAHAJAN Unavailable PROBLEMS Type Condition ICD9-CM Code [id number] Code Onset Dates Condition Status SNOMED Code Problem Type 2 diabetes mellitus without complication, without long-term current use of insulin E11.9 Active 926091093 Problem Lumbar disc disease M51.9 Active 92734529 Problem Hallux rigidus 735.2 Active 6468365 Problem Pain in joint, ankle and foot 719.47 Active 418146125 Problem Polyneuropathy associated with underlying disease G63 Active 648187320 Problem Neurogenic bladder N31.9 Active 093951049 ALLERGIES Unknown Allergies SOCIAL HISTORY No smoking Hx information available PLAN OF CARE VITAL SIGNS MEDICATIONS Unknown Medications RESULTS No Results PROCEDURES No Known procedures IMMUNIZATIONS No Known Immunizations
--- OUTSIDE RECORDS SUMMARY | 2017-06-30 18:40 | XMS REPORT ---
Author Author LAURIE MAHAJAN [facility] Address [address] [place] [address] Care Team Providers Care Assistant Foreman Name Role Phone LAURIE MAHAJAN Unavailable PROBLEMS Type Condition ICD9-CM Code OUU91-MI Code Onset Dates Condition Status SNOMED Code Problem Fibromyalgia M79.7 Active 192600585 Problem Meniere disease, unspecified laterality H81.09 Active 38838594 Problem Irritable bowel syndrome with diarrhea K58.0 Active 920173355 Problem Psychosis, unspecified psychosis type F29 Active 11202256 Problem Nicotine abuse Z72.0 Active 04171869 Problem Chronic pain disorder G89.4 Active 630501036 Problem Other chronic pain G89.29 Active 14447372 Problem Insomnia, unspecified type G47.00 Active 924505645 Problem Polyneuropathy associated with underlying disease G63 Active 023654546 Problem Lumbar disc disease M51.9 Active 33326669 Problem Type 2 diabetes mellitus without complication, without long-term current use of insulin E11.9 Active 073751541 Problem Neurogenic bladder N31.9 Active 994858384 ALLERGIES No Information SOCIAL HISTORY Never Assessed PLAN OF CARE VITAL SIGNS MEDICATIONS Medication Instructions Dosage Frequency Start Date End Date Duration Status Meclizine HCl 12.5 MG Orally Once a day 2 tablets as needed 24h August, 30 day(s) Active RESULTS No Results PROCEDURES No Known [...]
--- OUTSIDE RECORDS SUMMARY | 2017-06-30 18:40 | XMS REPORT ---
Author ELAN Mcmahon [facility] [employer] Address Unknown Phone Unavailable Care Team Providers Care Legal Biller Name Role Phone ELAN DUMONT CP Unavailable [...] Start Date End Date Status Dosage Hydrocodone-Acetaminophen [facility] [address]-11 7.5-325 MG Orally 3 times a day 1 tablet Results No Known Results Summary Purpose [employer]Clinical[employer] Submission
--- OUTSIDE RECORDS SUMMARY | 2017-06-30 18:40 | XMS REPORT ---
Author Author ELAN DUMONT [facility] Address [address] [place] [address] Care Team Providers Care Medical Or Surgical Instrument Maker Name Role Phone ELAN DUMONT Unavailable PROBLEMS Type Condition ICD9-CM Code GHA73-RO Code Onset Dates Condition Status SNOMED Code Problem Fibromyalgia M79.7 Active 164382532 Problem Meniere disease, unspecified laterality H81.09 Active 95955304 Problem Irritable bowel syndrome with diarrhea K58.0 Active 957007403 Problem Psychosis, unspecified psychosis type F29 Active 64909547 Problem Nicotine abuse Z72.0 Active 82029261 Problem Chronic pain disorder G89.4 Active 341781860 Problem Other chronic pain G89.29 Active 92394151 Problem Insomnia, unspecified type G47.00 Active 374226314 Problem Polyneuropathy associated with underlying disease G63 Active 086720000 Problem Lumbar disc disease M51.9 Active 95012318 Problem Type 2 diabetes mellitus without complication, without long-term current use of insulin E11.9 Active 385259463 Problem Neurogenic bladder N31.9 Active 534046049 ALLERGIES No Information SOCIAL HISTORY Never Assessed PLAN OF CARE VITAL SIGNS MEDICATIONS Unknown [...]
--- OUTSIDE RECORDS SUMMARY | 2017-06-30 18:40 | XMS REPORT ---
Author Author LAURIE MAHAJAN [facility] Address [address] [place] [address] Care Team Providers Care Leather Etcher Name Role Phone LAURIE MAHAJAN Unavailable PROBLEMS Type Condition ICD9-CM Code ISV72-FI Code Onset Dates Condition Status SNOMED Code Problem Fibromyalgia M79.7 Active 456797426 Problem Meniere disease, unspecified laterality H81.09 Active 32051262 Problem Irritable bowel syndrome with diarrhea K58.0 Active 526846788 Problem Psychosis, unspecified psychosis type F29 Active 25859706 Problem Nicotine abuse Z72.0 Active 20267282 Problem Chronic pain disorder G89.4 Active 633793429 Problem Other chronic pain G89.29 Active 81510230 Problem Insomnia, unspecified type G47.00 Active 096479111 Problem Polyneuropathy associated with underlying disease G63 Active 237487264 Problem Lumbar disc disease M51.9 Active 71502868 Problem Type 2 diabetes mellitus without complication, without long-term current use of insulin E11.9 Active 826664899 Problem Neurogenic bladder N31.9 Active 679588850 ALLERGIES Unknown Allergies SOCIAL HISTORY No smoking Hx information available PLAN OF CARE VITAL SIGNS MEDICATIONS Medication Instructions Dosage Frequency Start Date End Date Duration Status Hydrocodone-Acetaminophen 7.5-325 MG Orally 3 times a day 1 tablet 8h 7 May, 2016 28 days Active RESULTS No Results PROCEDURES No Known procedures IMMUNIZATIONS No Known Immunizations
--- OUTSIDE RECORDS SUMMARY | 2017-06-30 18:40 | XMS REPORT ---
Author Author LAURIE MAHAJAN Organization [employer] Address Unknown Phone Unavailable Care Team Providers Care Nuclear Unit Operator Name Role Phone LAURIE MAHAJAN CP Unavailable [...] Start Date End Date Status Dosage Seroquel [facility] [address]-49 50 MG Orally Once a day Feb 10, 2016 1 tablet Results No Known Results Summary Purpose [employer] Submission
--- OUTSIDE RECORDS SUMMARY | 2017-06-30 18:41 | XMS REPORT ---
Author Author LAURIE MAHAJAN Organization [employer] Address Unknown Phone Unavailable Care Team Providers Care Children'S Service Worker Name Role Phone LAURIE MAHAJAN CP Unavailable Allergies No Known Allergies Problems Problem Type Condition Code Onset Dates Condition Status Problem Pain in joint, ankle and foot 719.47 Active Problem Hallux rigidus 735.2 Active Medications Medication Code System Code Instructions Start Date End Date Status Dosage Lyrica [facility] [address]-34 225 MG Orally 2 times a day 1 capsule Results No Known Results Summary Purpose [employer] Submission
--- OUTSIDE RECORDS SUMMARY | 2017-06-30 18:41 | XMS REPORT ---
Author Author LAURIE MAHAJAN [facility] Address [address] [place] [address] Care Team Providers Care Archival Records Clerk Name Role Phone LAURIE MAHAJAN Unavailable PROBLEMS Type Condition ICD9-CM Code CAQ10-[id number] Code Onset Dates Condition Status SNOMED Code Problem Fibromyalgia M79.7 Active 328036377 Problem Meniere disease, unspecified laterality H81.09 Active 47099911 Problem Irritable bowel syndrome with diarrhea K58.0 Active 816709906 Problem Psychosis, unspecified psychosis type F29 Active 32004440 Problem Nicotine abuse Z72.0 Active 65097034 Problem Chronic pain disorder G89.4 Active 890955012 Problem Other chronic pain G89.29 Active 41322035 Problem Insomnia, unspecified type G47.00 Active 176053979 Problem Polyneuropathy associated with underlying disease G63 Active 174369758 Problem Lumbar disc disease M51.9 Active 10444622 Problem Type 2 diabetes mellitus without complication, without long-term current use of insulin E11.9 Active 713843313 Problem Neurogenic bladder N31.9 Active 173676296 ALLERGIES No Information SOCIAL HISTORY Never Assessed PLAN OF CARE VITAL SIGNS MEDICATIONS Medication Instructions Dosage Frequency Start Date End Date Duration Status Lyrica 225 MG Orally 2 times a day 1 capsule 12h 30 days [...]
--- OUTSIDE RECORDS SUMMARY | 2017-06-30 18:41 | XMS REPORT ---
Author Author LAURIE MAHAJAN Organization [employer] Address Unknown Phone Unavailable Care Team Providers Care Industrial Engineering Professor Name Role Phone LAURIE MAHAJAN CP Unavailable Allergies No Known Allergies Problems Problem Type Condition Code Onset Dates Condition Status Problem Pain in joint, ankle and foot 719.47 Active Problem Hallux rigidus 735.2 Active Medications No Known Medications Results No Known Results Summary Purpose [employer] Submission
--- OUTSIDE RECORDS SUMMARY | 2017-06-30 18:41 | XMS REPORT ---
Author Author LAURIE MAHAJAN [facility] Address [address] [place] [address] Care Team Providers Care Auto Emissions Technician Name Role Phone LAURIE MAHAJAN Unavailable PROBLEMS Type Condition ICD9-CM Code INT33-DQ Code Onset Dates Condition Status SNOMED Code Assessment Other chronic pain G89.29 Mar, Active 31967122 Problem Hallux rigidus 735.2 Active 3861051 Problem Pain in joint, ankle and foot 719.47 Active 268517167 Problem Other chronic pain G89.29 Active 46478388 Problem Insomnia, unspecified type G47.00 Active 016936197 Problem Polyneuropathy associated with underlying disease G63 Active 938254097 Problem Neurogenic bladder N31.9 Active 246506047 Problem Type 2 diabetes mellitus without complication, without long-term current use of insulin E11.9 Active 946731136 Problem Lumbar disc disease M51.9 Active 46890098 ALLERGIES Unknown Allergies SOCIAL HISTORY No smoking Hx information available PLAN OF CARE VITAL SIGNS MEDICATIONS Medication Instructions Dosage Frequency Start Date End Date Duration Status Hydrocodone-Acetaminophen 7.5-325 MG Orally 3 times a day 1 tablet 8h Apr, 30 days Active RESULTS No Results PROCEDURES No Known procedures IMMUNIZATIONS No Known Immunizations
--- OUTSIDE RECORDS SUMMARY | 2017-06-30 18:42 | XMS REPORT ---
Author Author [facility] Medical Staff Organization [facility] Address [address] [place], [place] [id number] Phone [phone] Care Team Providers Care Senior Construction Manager Name Role Phone ELAN DUMONT MD PP [phone] Summary purpose CCDA Sent to [facility] Chief Complaint and Reason for Visit Admit Diagnosis 1 AGITATION, AGGRESSION Problem list No authorized problems tracked for continuity of care are available for this visit. Encounters No authorized problems tracked for encounter diagnoses are available for this visit. Medications Discharge Medications Status Medication Directions Current alum-mag hydroxide-simeth (MAALOX) 400-400-40 mg/5 mL: SUSPENSION 30 milliliter(s) oral EVERY FOUR HOURS NEEDED for GI UPSET Current atenolol (TENORMIN) 25 mg: TABLET 25 MG oral DAILY AT 8 AM Current dicyclomine (BENTYL) 20 mg: TABLET 20 MG oral THREE TIMES A DAY Current DULoxetine (CYMBALTA) 30 mg: Cap DR 30 MG oral DAILY AT 8 PM Current DULoxetine (CYMBALTA) 60 mg: Cap DR 60 MG oral DAILY AT 8 AM Current furosemide (LASIX) 20 mg: TABLET 20 MG oral DAILY AT 8 AM Current glimepiride (AMARYL) 2 mg: TABLET 4 MG oral DAILY AT 8 AM Current hydrochlorothiazide (HCTZ) 12.5 mg: capsule 12.5 MG oral TWO TIMES A DAY Current HYDROcodone-acetaminophen (HYDROCODONE/APAP) 7.5-325 mg: TABLET 1 TAB oral THREE TIMES A DAY Current HYOSCYAMINE SULFATE (HYOMAX-SL) 0.125 MG Sublingual SL EVERY FOUR HOURS NEEDED for BOWEL DISTRESS Current magnesium hydroxide (MILK OF MAGNESIA) 400 mg/5 mL: SUSPENSION 30 milliliter(s) oral NEEDED for CONSTIPATION Current meloxicam (MOBIC) 15 mg: TABLET 7.5 MG oral EVERY TWENTY-FORU HR NEEDED for PAIN Current metFORMIN (GLUCOPHAGE) 500 mg: TABLET 500 MG oral TWO TIMES A DAY Current mirtazapine (REMERON) 15 mg: TABLET 15 MG oral BEDTIME Current nicotine (NICODERM CQ) 14 mg/24 hr: PATCH TD24 1 PATCH Transdermal Give TD ONE TIME A DAY Current pantoprazole (PROTONIX) 40 mg: Tab DR 40 MG oral ONE TIME A DAY Current polysaccharide iron complex (FERREX 150) 150 mg iron: capsule 150 MG oral TWO TIMES A DAY Current potassium chloride (KLOR-CON) 20 mEq: Tab ER 12HR 20 MEQ oral TWO TIMES A DAY Current pregabalin (LYRICA) 75 mg: capsule 225 MG oral TWO TIMES A DAY Current sodium phosphates (FLEETS ENEMA) 19-7 gram/118 mL: ENEMA 133 ML rectal Give RECT NEEDED for IF NO RESULTS FROM MOM Current ziprasidone HCl (GEODON) 40 mg: capsule 40 MG oral TWO TIMES A DAY Stopped atenolol 25 mg tablet 25 miligram(s) oral DAILY AT 8 AM Stopped dicyclomine 20 mg tablet 20 miligram(s) oral THREE TIMES A DAY Stopped DULoxetine 60 mg capsule,delayed release 60 miligram(s) oral DAILY AT 8 AM Stopped furosemide 20 mg tablet 20 miligram(s) oral DAILY AT 8 AM Stopped glimepiride 4 mg tablet 4 miligram(s) oral DAILY AT 8 AM Stopped hydrochlorothiazide 12.5 mg tablet 12.5 miligram(s) oral TWO TIMES A DAY Stopped HYDROcodone 7.5 mg-acetaminophen 325 mg tablet 7.5 miligram(s) oral THREE TIMES A DAY Stopped hyoscyamine sulfate 0.125 mg tablet 0.125 miligram(s) oral EVERY FOUR HOURS NEEDED Stopped Lyrica 225 mg capsule 225 miligram(s) oral TWO TIMES A DAY Stopped meloxicam 7.5 mg tablet 7.5 miligram(s) oral EVERY TWENTY-FORU HR NEEDED Stopped metFORMIN 500 mg tablet 500 miligram(s) oral TWO TIMES A DAY Stopped nystatin 100,000 unit/gram topical powder topical EVERY FOUR HOURS NEEDED Stopped omeprazole 40 mg capsule,delayed release 40 miligram(s) oral DAILY AT 8 AM Stopped polysaccharide iron complex 150 mg iron capsule 150 miligram(s) oral TWO TIMES A DAY Stopped Seroquel 25 mg tablet 25 miligram(s) oral DAILY AT 8 PM Allergies, adverse reactions, alerts Allergen Category Ingredient Status Reaction Severity Onset Penicillins Drug Penicillins Active Sulfa (Sulfonamide Antibiotics) Drug Sulfa (Sulfonamide Antibiotics) Active Immunizations No immunizations recorded for this patient visit Relevant diagnostic tests and/or laboratory data RESULTS CBC :10:00 Result Normal Range Units WBC H 10.48 4.60-10.20 x 103/uL RBC 4.25 4.04-6.13 x 106/uL Hemoglobin 12.9 12.2-18.1 g/dl Hematocrit 39.0 37.7-53.7 % MCV 91.8 80.0-97.0 FL MCH 30.4 27.0-31.2 pg MCHC 33.1 31.8-35.4 g/dl RDW 13.6 11.6-14.8 % Platelets 256 142-424 x 103/uL MPV 11.0 9.4-12.4 FL Manual Diff Not Indicated Neutrophil % L 36.9 37-80 % Neutrophils 3.87 2.0-6.9 x 103/uL Lymphocyte % 47.1 10-50 % Lymphocytes H 4.94 0.6-3.4 x 103/uL Monocyte % 11.5 0-12 % Monocytes H 1.20 0.0-1.0 x 103/uL Eosinophil % 4.3 0-7 % Eosinophils 0.45 0-0.7 x 103/uL Basophil % 0.2 0-2 % Basophils 0.02 0.0-0.1 x 103/uL :10:00 Result Normal Range Units WBC 10.14 4.60-10.20 x 103/uL RBC 4.17 4.04-6.13 x 106/uL Hemoglobin 12.7 12.2-18.1 g/dl Hematocrit 38.3 37.7-53.7 % MCV 91.8 80.0-97.0 FL MCH 30.5 27.0-31.2 pg MCHC 33.2 31.8-35.4 g/dl RDW 13.7 11.6-14.8 % Platelets 257 142-424 x 103/uL MPV 11.2 9.4-12.4 FL Manual Diff Not Indicated Neutrophil % 43.3 37-80 % Neutrophils 4.39 2.0-6.9 x 103/uL Lymphocyte % 41.4 10-50 % Lymphocytes H 4.20 0.6-3.4 x 103/uL Monocyte % H 12.2 0-12 % Monocytes H 1.24 0.0-1.0 x 103/uL Eosinophil % 2.9 0-7 % Eosinophils 0.29 0-0.7 x 103/uL Basophil % 0.2 0-2 % Basophils 0.02 0.0-0.1 x 103/uL 33-14-864912:05:00 Result Normal Range Units WBC H 10.94 4.60-10.20 x 103/uL RBC 4.55 4.04-6.13 x 106/uL Hemoglobin 13.9 12.2-18.1 g/dl Hematocrit 40.9 37.7-53.7 % MCV 89.9 80.0-97.0 FL MCH 30.5 27.0-31.2 pg MCHC 34.0 31.8-35.4 g/dl RDW 13.8 11.6-14.8 % Platelets 290 142-424 x 103/uL MPV 10.9 9.4-12.4 FL Manual Diff Not Indicated Neutrophil % 43.1 37-80 % Neutrophils 4.71 2.0-6.9 x 103/uL Lymphocyte % 44.5 10-50 % Lymphocytes H 4.87 0.6-3.4 x 103/uL Monocyte % 10.3 0-12 % Monocytes H 1.13 0.0-1.0 x 103/uL Eosinophil % 1.9 0-7 % Eosinophils 0.21 0-0.7 x 103/uL Basophil % 0.2 0-2 % Basophils 0.02 0.0-0.1 x 103/uL 43-14-557551:58:00 Result Normal Range Units WBC H 14.04 4.60-10.20 x 103/uL RBC 4.68 4.04-6.13 x 106/uL Hemoglobin 14.3 12.2-18.1 g/dl Hematocrit 42.5 37.7-53.7 % MCV 90.8 80.0-97.0 FL MCH 30.6 27.0-31.2 pg MCHC 33.6 31.8-35.4 g/dl RDW 14.0 11.6-14.8 % Platelets 300 142-424 x 103/uL MPV 10.9 9.4-12.4 FL Manual Diff Not Indicated Neutrophil % 52.1 37-80 % Neutrophils H 7.33 2.0-6.9 x 103/uL Lymphocyte % 37.3 10-50 % Lymphocytes H 5.23 0.6-3.4 x 103/uL Monocyte % 9.0 0-12 % Monocytes H 1.26 0.0-1.0 x 103/uL Eosinophil % 1.4 0-7 % Eosinophils 0.19 0-0.7 x 103/uL Basophil % 0.2 0-2 % Basophils 0.03 0.0-0.1 x 103/uL 11-99-368009:55:00 Result Normal Range Units WBC H 15.43 4.60-10.20 x 103/uL RBC 4.51 4.04-6.13 x 106/uL Hemoglobin 13.7 12.2-18.1 g/dl Hematocrit 41.7 37.7-53.7 % MCV 92.5 80.0-97.0 FL MCH 30.4 27.0-31.2 pg MCHC 32.9 31.8-35.4 g/dl RDW 14.0 11.6-14.8 % Platelets 289 142-424 x 103/uL MPV 11.2 9.4-12.4 FL Manual Diff Not Indicated Neutrophil % 46.3 37-80 % Neutrophils H 7.15 2.0-6.9 x 103/uL Lymphocyte % 43.4 10-50 % Lymphocytes H 6.70 0.6-3.4 x 103/uL Monocyte % 8.7 0-12 % Monocytes H 1.34 0.0-1.0 x 103/uL Eosinophil % 1.4 0-7 % Eosinophils 0.21 0-0.7 x 103/uL Basophil % 0.2 0-2 % Basophils 0.03 0.0-0.1 x 103/uL 22-62-538601:10:00 Result Normal Range Units WBC H 14.90 4.60-10.20 x 103/uL Result Amended on 2016-03-04 at 13:36:01. Previous status was FR. RBC 4.60 4.04-6.13 x 106/uL Result Amended on 2016-03-04 at 13:36:01. Previous status was FR. Hemoglobin 14.3 12.2-18.1 g/dl Result Amended on 2016-03-04 at 13:36:01. Previous status was FR. Hematocrit 42.0 37.7-53.7 % Result Amended on 2016-03-04 at 13:36:01. Previous status was FR. MCV 91.3 80.0-97.0 FL Result Amended on 2016-03-04 at 13:36:01. Previous status was FR. MCH 31.1 27.0-31.2 pg Result Amended on 2016-03-04 at 13:36:01. Previous status was FR. MCHC 34.0 31.8-35.4 g/dl Result Amended on 2016-03-04 at 13:36:01. Previous status was FR. RDW 14.1 11.6-14.8 % Result Amended on 2016-03-04 at 13:36:01. Previous status was FR. Platelets 321 142-424 x 103/uL Result Amended on 2016-03-04 at 13:36:01. Previous status was FR. MPV 11.3 9.4-12.4 FL Result Amended on 2016-03-04 at 13:36:01. Previous status was FR. Manual Diff Indicated Neutrophil % 44.1 37-80 % Result Amended on 2016-03-04 at 13:36:01. Previous status was FR. Neutrophils 6.57 2.0-6.9 x 103/uL Result Amended on 2016-03-04 at 13:36:01. Previous status was FR. Lymphocyte % 45.6 10-50 % Result Amended on 2016-03-04 at 13:36:01. Previous status was FR. Lymphocytes H 6.80 0.6-3.4 x 103/uL Result Amended on 2016-03-04 at 13:36:01. Previous status was FR. Monocyte % 8.9 0-12 % Result Amended on 2016-03-04 at 13:36:01. Previous status was FR. Monocytes H 1.32 0.0-1.0 x 103/uL Result Amended on 2016-03-04 at 13:36:01. Previous status was FR. Eosinophil % 1.2 0-7 % Result Amended on 2016-03-04 at 13:36:01. Previous status was FR. Eosinophils 0.18 0-0.7 x 103/uL Result Amended on 2016-03-04 at 13:36:01. Previous status was FR. Basophil % 0.2 0-2 % Result Amended on 2016-03-04 at 13:36:01. Previous status was FR. Basophils 0.03 0.0-0.1 x 103/uL Result Amended on 2016-03-04 at 13:36:01. Previous status was FR. Neutrophils 44.0 Lymphocytes 49.0 Monocytes 3.0 Eosinophils 0.0 Basophils 1.0 Bands 3.0 Platelet Clumping Large platelets Urinalysis :55:00 Result Normal Range Units Site Catheter Urine Color Yellow Yellow Urine Appearance Clear Clear Urine Glucose Negative Negative Urine Bilirubin Negative Negative Urine Ketones Negative Negative Urine Specific [place] 1.015 1.010-1.020 Urine PH 7.0 5.5-7.5 Urine Protein Negative Negative Urine Urobilinogen 0.2 0.2-1.0 Urine Nitrites AB Positive Negative Urine Blood Negative Negative Urine Leukocytes AB 2+ Negative Urine WBC's 21-30 Urine RBC's 3-5 Urine Bacteria 3+ Hyaline Casts Trace Chemistry Group :10:00 Result Normal Range Units Glucose H 131 70-99 mg/dl BUN 17 7-26 mg/dl Creatinine 0.8 0.6-1.3 mg/dl Sodium 143 136-145 mmol/L Potassium 3.7 3.5-5.1 mmol/L Chloride 107 98-107 mmol/L CO2 26 22-29 mmol/L BUN/Creatinine Ratio 21 7-25 Ratio Calcium 9.2 8.4-10.2 mg/dl Osmolality 279 261-280 mOsm/kg Anion GAP 10 5-16 mmol/L :10:00 Result Normal Range Units Glucose H 141 70-99 mg/dl BUN 15 7-26 mg/dl Creatinine 0.9 0.6-1.3 mg/dl Sodium 142 136-145 mmol/L Potassium L 3.3 3.5-5.1 mmol/L Chloride 104 98-107 mmol/L CO2 26 22-29 mmol/L BUN/Creatinine Ratio 17 7-25 Ratio Calcium 9.1 8.4-10.2 mg/dl Osmolality 277 261-280 mOsm/kg Anion GAP 12 5-16 mmol/L :05:00 Result Normal Range Units Glucose H 166 70-99 mg/dl BUN 14 7-26 mg/dl Creatinine 0.9 0.6-1.3 mg/dl Sodium 142 136-145 mmol/L Potassium L 3.3 3.5-5.1 mmol/L Chloride 102 98-107 mmol/L CO2 26 22-29 mmol/L BUN/Creatinine Ratio 16 7-25 Ratio Calcium 9.5 8.4-10.2 mg/dl Osmolality 278 261-280 mOsm/kg Anion GAP 14 5-16 mmol/L 41-00-160729:58:00 Result Normal Range Units Glucose H 197 70-99 mg/dl BUN 17 7-26 mg/dl Creatinine 1.0 0.6-1.3 mg/dl Sodium 140 136-145 mmol/L Potassium L 3.0 3.5-5.1 mmol/L Chloride L 97 98-107 mmol/L CO2 H 30 22-29 mmol/L BUN/Creatinine Ratio 17 7-25 Ratio Calcium 9.8 8.4-10.2 mg/dl Osmolality 277 261-280 mOsm/kg Anion GAP 13 5-16 mmol/L 40-30-631146:55:00 Result Normal Range Units Glucose H 146 70-99 mg/dl BUN 13 7-26 mg/dl Creatinine 0.9 0.6-1.3 mg/dl Sodium 142 136-145 mmol/L Potassium L 2.7 3.5-5.1 mmol/L Chloride 100 98-107 mmol/L CO2 28 22-29 mmol/L BUN/Creatinine Ratio 14 7-25 Ratio Calcium 9.4 8.4-10.2 mg/dl Osmolality 277 261-280 mOsm/kg Anion GAP 14 5-16 mmol/L 24-55-877709:10:00 Result Normal Range Units Glucose H 180 70-99 mg/dl BUN 15 7-26 mg/dl Creatinine 0.9 0.6-1.3 mg/dl Sodium 143 136-145 mmol/L Potassium L 3.1 3.5-5.1 mmol/L Chloride 102 98-107 mmol/L CO2 29 22-29 mmol/L BUN/Creatinine Ratio 17 7-25 Ratio Calcium 9.5 8.4-10.2 mg/dl Protein Total 7.2 6.4-8.3 g/dl Albumin L 3.4 3.5-5.0 g/dl A/G Ratio L 0.9 1.2-2.2 Ratio AST 22 5-34 U/L ALT 24 0-55 U/L ALP 110 40-150 U/L Bilirubin Total 0.2 0.2-1.2 mg/dl Osmolality H 281 261-280 mOsm/kg Globulin H 3.8 2.4-3.5 g/dl Free T4 0.99 0.70-1.48 ng/dl TSH 1.52 0.35-4.94 uIU/mL Reference Lab Group :10:00 EKG See Manual Report Urinalysis :55:00 Result Normal Range Units Site Catheter Urine Color Yellow Yellow Urine Appearance Clear Clear Urine Glucose Negative Negative Urine Bilirubin Negative Negative Urine Ketones Negative Negative Urine Specific [place] 1.015 1.010-1.020 Urine PH 7.0 5.5-7.5 Urine Protein Negative Negative Urine Urobilinogen 0.2 0.2-1.0 Urine Nitrites AB Positive Negative Urine Blood Negative Negative Urine Leukocytes AB 2+ Negative Urine WBC's 21-30 Urine RBC's 3-5 Urine Bacteria 3+ Hyaline Casts Trace History of procedures No procedures recorded for this patient visit. Functional status Functional Status Finding Observation Time Dexterity Right-handed :00 Weight Bearing Statu Full 35-71-754516:00 Transferring/Ambulat Independent 35-43-993976:00 Bathing Needs Assistance :00 Dressing Needs Assistance 72-25-370390:00 Eating Independent :00 Drinking Independent :00 Toileting Needs Assistance :00 Able to Turn Self in Independent :00 Stairs Not Done 80-90-342065:00 Cane Yes 67-31-322084:00 Wheelchair Yes 68-90-729744:00 Cognitive Status Finding Observation Time Level of Consciousne Alert :51 Oriented to Person Yes :[address] Yes :51 Oriented to Time Yes :51 Eyes - LUBA Yes :51 Vital signs Type Value Date Respirations 18 62-05-714837:43 Pulse 75 :43 O2 Saturation 98% :43 Systolic Blood Press 115mm/HG 35-09-139320:43 Diastolic Blood Pres 74mm/HG 03-73-626232:43 Temperature (Fahr) 96.96Degrees 41-69-577714:43 Height 60in 39-95-863876:15 Weight 227.4LB 72-03-526050:38 Social history Type Value Smoking Status CURRENT EVERY DAY SMOKER Treatment Plan Treatment Plan at Di F/U with physician within 7 days of discharge Hospital discharge instructions Diagnosis Agitation and aggression Diet 1800 ADA Activity Level As tolerated Personal Items Retur Yes Flu Vaccine Given Comment: undetermined Pneumonia Vaccine Gi Comment: undetermined Follow up with Dr. Bonilla Appointment Date and See Comments Comment: Physician goes to skilled nursing to see patient. alf will notify physician that patient has returned to facility within 7 days.
--- OUTSIDE RECORDS SUMMARY | 2017-06-30 18:43 | XMS REPORT ---
Author Author LAURIE MAHAJAN Organization [employer] Address Unknown Phone Unavailable Care Team Providers Care Artificial Insemination Technician Name Role Phone LAURIE MAHAJAN CP Unavailable Allergies No Known Allergies Problems Problem Type Condition Code Onset Dates Condition Status Problem Type 2 diabetes mellitus without complication, without long-term current use of insulin E11.9 Active Problem Lumbar disc disease M51.9 Active Problem Insomnia, unspecified type G47.00 Active Problem Hallux rigidus 735.2 Active Problem Pain in joint, ankle and foot 719.47 Active Problem Polyneuropathy associated with underlying disease G63 Active Problem Neurogenic bladder N31.9 Active Medications No Known Medications Results No Known Results Summary Purpose [employer] Submission
--- OUTSIDE RECORDS SUMMARY | 2017-06-30 18:43 | XMS REPORT ---
Author Author LAURIE MAHAJAN [facility] Address [address] [place] [address] Care Team Providers Care Shade Hanger Name Role Phone LAURIE MAHAJAN Unavailable PROBLEMS Type Condition ICD9-CM Code [id number] Code Onset Dates Condition Status SNOMED Code Problem Type 2 diabetes mellitus without complication, without long-term current use of insulin E11.9 Active 004139169 Problem Lumbar disc disease M51.9 Active 63664580 Problem Hallux rigidus 735.2 Active 1610220 Problem Pain in joint, ankle and foot 719.47 Active 232146885 Problem Polyneuropathy associated with underlying disease G63 Active 125185850 Problem Neurogenic bladder N31.9 Active 657576737 ALLERGIES Unknown Allergies SOCIAL HISTORY No smoking Hx information available PLAN OF CARE VITAL SIGNS MEDICATIONS Unknown Medications RESULTS No Results PROCEDURES No Known procedures IMMUNIZATIONS No Known Immunizations
--- OUTSIDE RECORDS SUMMARY | 2017-06-30 18:43 | XMS REPORT ---
Author Author LAURIE MAHAJAN [facility] Address [address] [place] [address] Care Team Providers Care Edge Burnisher Name Role Phone LAURIE MAHAJAN Unavailable PROBLEMS Type Condition ICD9-CM Code [id number] Code Onset Dates Condition Status SNOMED Code Problem Pain in joint, ankle and foot 719.47 Active 243268616 Problem Insomnia, unspecified type G47.00 Active 553675194 Problem Type 2 diabetes mellitus without complication, without long-term current use of insulin E11.9 Active 326469468 Problem Neurogenic bladder N31.9 Active 761414827 Problem Hallux rigidus 735.2 Active 8684943 Problem Lumbar disc disease M51.9 Active 24282753 Problem Polyneuropathy associated with underlying disease G63 Active 709159765 ALLERGIES Unknown Allergies SOCIAL HISTORY No smoking Hx information available PLAN OF CARE VITAL SIGNS MEDICATIONS Unknown Medications RESULTS No Results PROCEDURES No Known procedures IMMUNIZATIONS No Known Immunizations
--- OUTSIDE RECORDS SUMMARY | 2017-06-30 18:43 | XMS REPORT ---
Author Author LAURIE MAHAJAN [facility] Address [address] [place] [address] Care Team Providers Care Tear Down Man Name Role Phone LAURIE MAHAJAN Unavailable PROBLEMS Type Condition ICD9-CM Code JER34-CO Code Onset Dates Condition Status SNOMED Code Problem Fibromyalgia M79.7 Active 179793601 Problem Meniere disease, unspecified laterality H81.09 Active 81797403 Problem Irritable bowel syndrome with diarrhea K58.0 Active 572926908 Problem Psychosis, unspecified psychosis type F29 Active 15283360 Problem Nicotine abuse Z72.0 Active 69625441 Problem Chronic pain disorder G89.4 Active 105288387 Problem Other chronic pain G89.29 Active 22404894 Problem Insomnia, unspecified type G47.00 Active 190900031 Problem Polyneuropathy associated with underlying disease G63 Active 583946997 Problem Lumbar disc disease M51.9 Active 18813600 Problem Type 2 diabetes mellitus without complication, without long-term current use of insulin E11.9 Active 479215670 Problem Neurogenic bladder N31.9 Active 688775569 ALLERGIES No Information SOCIAL HISTORY Never Assessed PLAN OF CARE Activity Details Follow Up prn Reason: VITAL SIGNS MEDICATIONS Medication Instructions Dosage Frequency Start Date End Date Duration Status Polysaccharide Iron Complex 150 MG Orally Twice a day 1 capsule 12h Active Atenolol 25 MG Orally Once a day 1 tablet 24h 30 Active Hyoscyamine Sulfate 0.125 MG Sublingual every 4 hrs prn 1 tablet Active Meloxicam 7.5 MG Orally Once a day as needed for pain 1 tablet Active Furosemide 20 mg Orally Once a day 1 tablet 24h 30 days Active Omeprazole 20 mg Orally Once a day 2 tablets 24h Active Seroquel 25 MG Orally Once a day at HS 1 tablet Feb, Active Duloxetine HCl 60 MG Orally Once a day 1 capsule 24h 30 days Active Mirtazapine 15 MG Orally Once a day 1 tablet at bedtime 24h 30 Active Dicyclomine HCl 20 MG TAKE 1 TABLET BY MOUTH THREE TIMES DAILY 30 Active Glimepiride 4 MG Orally Once a day 1 tablet with breakfast or the first main meal of the day 24h 30 days Active Pantoprazole Sodium 40 mg Orally Once a day 1 tablet 24h 30 days Active Attends Xtellus L Ex-Absorb - use under patient 6h 14 Jan, 2016 Active Cipro 500 mg Orally Twice a day 1 tablet 12h August, August, 07 days Active Nitrofurantoin Macrocrystal 50 mg Orally Once a day 1 capsule with food or milk 24h Active Meclizine HCl 12.5 MG Orally Once a day 2 tablets as needed 24h August, 30 day(s) Active Lyrica 225 MG Orally 2 times a day 1 capsule 12h 30 days Active Nystatin 965771 UNIT/GM Externally Twice a day 1 application to affected area 12h 18 Nov, 2015 Active Levsin 0.125 MG Orally every 4 hrs as needed for restlesness, excessive secreations 1 tablet before meals as needed Active Hydrochlorothiazide 12.5 MG Orally twice a day 1 capsule 12h 30 days Active Hydrocodone-Acetaminophen 7.5-325 MG Orally 3 times a day 1 tablet 8h August, 28 days Active Metformin HCl 500 MG TAKE 1 TABLET BY MOUTH TWICE DAILY WITH MEALS 30 Active Ziprasidone HCl 40 MG TAKE 1 CAPSULE BY MOUTH TWICE DAILY WITH FOOD 30 Active Klor-Con Sprinkle 10 MEQ TAKE 2 CAPSULES BY MOUTH TWICE DAILY 30 Active RESULTS No Results PROCEDURES Procedure Date Ordered Result Body Site Minor complication (15 mins) August 25, 2016 IMMUNIZATIONS No Known Immunizations MEDICAL (GENERAL) HISTORY [...]
--- OUTSIDE RECORDS SUMMARY | 2017-06-30 18:44 | XMS REPORT ---
Author Author LAURIE MAHAJAN Organization [employer] Address Unknown Phone Unavailable Care Team Providers Care Assistant Bookkeeper Name Role Phone LAURIE MAHAJAN CP Unavailable Allergies No Known Allergies Problems Problem Type Condition Code Onset Dates Condition Status Problem Pain in joint, ankle and foot 719.47 Active Problem Hallux rigidus 735.2 Active Medications No Known Medications Results No Known Results Summary Purpose [employer] Submission
--- OUTSIDE RECORDS SUMMARY | 2017-06-30 18:44 | XMS REPORT ---
Author Author LAURIE MAHAJAN [facility] Address [address] [place] [address] Care Team Providers Care Shift Manager Name Role Phone LAURIE MAHAJAN Unavailable PROBLEMS Type Condition ICD9-CM Code [id number] Code Onset Dates Condition Status SNOMED Code Problem Fibromyalgia M79.7 Active 817978933 Problem Meniere disease, unspecified laterality H81.09 Active 72908143 Problem Irritable bowel syndrome with diarrhea K58.0 Active 498031602 Problem Psychosis, unspecified psychosis type F29 Active 35025400 Problem Nicotine abuse Z72.0 Active 93530277 Problem Chronic pain disorder G89.4 Active 292236764 Problem Other chronic pain G89.29 Active 15960978 Problem Insomnia, unspecified type G47.00 Active 169543376 Problem Polyneuropathy associated with underlying disease G63 Active 961354198 Problem Lumbar disc disease M51.9 Active 93426133 Problem Type 2 diabetes mellitus without complication, without long-term current use of insulin E11.9 Active 254789299 Problem Neurogenic bladder N31.9 Active 489165108 ALLERGIES No Information SOCIAL HISTORY Never Assessed PLAN OF CARE VITAL SIGNS MEDICATIONS Medication Instructions Dosage Frequency Start Date End Date Duration Status Hydrocodone-Acetaminophen 7.5-325 MG Orally 3 times a day 1 tablet 8h Jun, 28 days Active RESULTS No Results PROCEDURES [...]
--- OUTSIDE RECORDS SUMMARY | 2017-06-30 18:44 | XMS REPORT ---
Author Author LAURIE MAHAJAN [facility] Address [address] [place] [address] Care Team Providers Care Accident Examiner Name Role Phone LAURIE MAHAJAN Unavailable PROBLEMS Type Condition ICD9-CM Code NYZ22-OB Code Onset Dates Condition Status SNOMED Code Problem Fibromyalgia M79.7 Active 213522744 Problem Meniere disease, unspecified laterality H81.09 Active 69582435 Problem Irritable bowel syndrome with diarrhea K58.0 Active 881525488 Problem Psychosis, unspecified psychosis type F29 Active 12660472 Problem Nicotine abuse Z72.0 Active 53046274 Problem Chronic pain disorder G89.4 Active 268502372 Problem Other chronic pain G89.29 Active 05448073 Problem Insomnia, unspecified type G47.00 Active 955422580 Problem Polyneuropathy associated with underlying disease G63 Active 163509555 Problem Lumbar disc disease M51.9 Active 99056968 Problem Type 2 diabetes mellitus without complication, without long-term current use of insulin E11.9 Active 894559210 Problem Neurogenic bladder N31.9 Active 948259793 ALLERGIES No Information SOCIAL HISTORY Never Assessed PLAN OF CARE VITAL SIGNS MEDICATIONS Medication Instructions Dosage Frequency Start Date End Date Duration Status Pantoprazole Sodium 20 MG Orally Once a day 1 tablet 24h Active RESULTS No Results PROCEDURES No Known [...]
--- OUTSIDE RECORDS SUMMARY | 2017-06-30 18:44 | XMS REPORT ---
Author Author LAURIE MAHAJAN [facility] Address [address] [place] [address] Care Team Providers Care Supervisor Livestock Yard Name Role Phone LAURIE MAHAJAN Unavailable PROBLEMS Type Condition ICD9-CM Code [id number] Code Onset Dates Condition Status SNOMED Code Problem Chronic pain disorder G89.4 Active 802280759 Problem Meniere disease, unspecified laterality H81.09 Active 18981149 Problem Fibromyalgia M79.7 Active 695778880 Problem Psychosis, unspecified psychosis type F29 Active 07623384 Problem Nicotine abuse Z72.0 Active 99782267 Problem Irritable bowel syndrome with diarrhea K58.0 Active 944089086 Problem Other chronic pain G89.29 Active 85286083 Problem Insomnia, unspecified type G47.00 Active 305373248 Problem Polyneuropathy associated with underlying disease G63 Active 363804891 Problem Neurogenic bladder N31.9 Active 390124521 Problem Type 2 diabetes mellitus without complication, without long-term current use of insulin E11.9 Active 152803376 Problem Lumbar disc disease M51.9 Active 68270231 ALLERGIES Unknown Allergies SOCIAL HISTORY No smoking Hx information available PLAN OF CARE VITAL SIGNS MEDICATIONS Medication Instructions Dosage Frequency Start Date End Date Duration Status Ziprasidone HCl 40 mg Orally Twice a day 1 capsule with food 12h Mar, 30 day(s) Active Glimepiride 4 MG Orally Once a day 1 tablet with breakfast or the first main meal of the day 24h 30 days Active Duloxetine HCl 90mg Orally Once a day 1 capsule 24h 30 days Active RESULTS No Results PROCEDURES No Known procedures IMMUNIZATIONS No Known Immunizations
--- OUTSIDE RECORDS SUMMARY | 2017-06-30 18:44 | XMS REPORT ---
Author ELAN Mcmahon [facility] eClinicalWorks Address Unknown Phone Unavailable Care Team Providers Care Repairer Welding Equipment Name Role Phone ELAN DUMONT CP Unavailable Allergies No Known Allergies Problems Problem Type Condition Code Onset Dates Condition Status Problem Lumbar disc disease M51.9 Active Problem Polyneuropathy associated with underlying disease G63 Active Problem Type 2 diabetes mellitus without complication, without long-term current use of insulin E11.9 Active Problem Pain in joint, ankle and foot 719.47 Active Assessment Neurogenic bladder N31.9 Active Problem Neurogenic bladder N31.9 Active Problem Hallux rigidus 735.2 Active Medications Medication Code System Code Instructions Start Date End Date Status Dosage Attends Underpads L Ex-Absorb [facility] [address] - 4 times a day Jan 17, 2016 use under patient Results No Known Results Summary Purpose eClinicalWorks Submission
--- OUTSIDE RECORDS SUMMARY | 2017-06-30 18:44 | XMS REPORT ---
Author Author LAURIE MAHAJAN [facility] Address [address] [place] [address] Care Team Providers Care Transport Driver Name Role Phone LAURIE MAHAJAN Unavailable PROBLEMS Type Condition ICD9-CM Code RTO24-HM Code Onset Dates Condition Status SNOMED Code Problem Fibromyalgia M79.7 Active 565024860 Problem Meniere disease, unspecified laterality H81.09 Active 80996360 Problem Irritable bowel syndrome with diarrhea K58.0 Active 175601505 Problem Psychosis, unspecified psychosis type F29 Active 05537112 Problem Nicotine abuse Z72.0 Active 37126169 Problem Chronic pain disorder G89.4 Active 908674481 Problem Other chronic pain G89.29 Active 27170211 Problem Insomnia, unspecified type G47.00 Active 989197134 Problem Polyneuropathy associated with underlying disease G63 Active 143949703 Problem Lumbar disc disease M51.9 Active 68008045 Problem Type 2 diabetes mellitus without complication, without long-term current use of insulin E11.9 Active 146245042 Problem Neurogenic bladder N31.9 Active 090565884 ALLERGIES Unknown Allergies SOCIAL HISTORY No smoking Hx information available PLAN OF CARE Activity Details Follow Up prn Reason: VITAL SIGNS MEDICATIONS Unknown Medications RESULTS No Results PROCEDURES Procedure Date Ordered Related Diagnosis Body Site Stable Visit (10 minutes) Apr 23, 2016 IMMUNIZATIONS No Known Immunizations
--- OUTSIDE RECORDS SUMMARY | 2017-06-30 18:44 | XMS REPORT ---
Author ELAN Mcmahon [facility] eClinicalWorks Address Unknown Phone Unavailable Care Team Providers Care Superintendent Renting Managing Name Role Phone ELAN DUMONT CP Unavailable Allergies No Known Allergies Problems Problem Type Condition Code Onset Dates Condition Status Problem Lumbar disc disease M51.9 Active Problem Polyneuropathy associated with underlying disease G63 Active Problem Type 2 diabetes mellitus without complication, without long-term current use of insulin E11.9 Active Problem Pain in joint, ankle and foot 719.47 Active Assessment Screening for breast cancer Z12.39 Active Problem Neurogenic bladder N31.9 Active Problem Hallux rigidus 735.2 Active Medications No Known Medications Results No Known Results Summary Purpose eClinicalWorks Submission
--- OUTSIDE RECORDS SUMMARY | 2017-06-30 18:44 | XMS REPORT ---
Author Author LAURIE MAHAJAN [facility] eClinicalWorks Address Unknown Phone Unavailable Care Team Providers Care Strategic Marketing Specialist Name Role Phone LAURIE MAHAJAN CP Unavailable [...]
--- OUTSIDE RECORDS SUMMARY | 2017-06-30 18:44 | XMS REPORT ---
Author LAURIE Cruz Organization eClinicalWorks Address Unknown Phone Unavailable Care Team Providers Care Dining Car Server Name Role Phone LAURIE MAHAJAN CP Unavailable [...] Active Problem Neurogenic bladder N31.9 Active Medications Medication Code System Code Instructions Start Date End Date Status Dosage Hyoscyamine Sulfate [facility] [address]-87 0.125 MG Sublingual every 4 hrs prn 1 tablet Results No Known Results Summary Purpose eClinicalWorks Submission
--- OUTSIDE RECORDS SUMMARY | 2017-06-30 18:44 | XMS REPORT ---
Author ELAN Mcmahon [facility] eClinicalWorks Address Unknown Phone Unavailable Care Team Providers Care Test Fixture Designer Name Role Phone ELAN DUMONT CP Unavailable [...]
--- OUTSIDE RECORDS SUMMARY | 2017-06-30 18:44 | XMS REPORT ---
Author Author LAURIE MAHAJAN [facility] Address [address] [place] [address] Care Team Providers Care Hay Farmer Name Role Phone LAURIE MAHAJAN Unavailable PROBLEMS Type Condition ICD9-CM Code ONY73-QP Code Onset Dates Condition Status SNOMED Code Problem Fibromyalgia M79.7 Active 539960208 Problem Meniere disease, unspecified laterality H81.09 Active 88938291 Problem Irritable bowel syndrome with diarrhea K58.0 Active 668689365 Problem Psychosis, unspecified psychosis type F29 Active 41825509 Problem Nicotine abuse Z72.0 Active 50431443 Problem Chronic pain disorder G89.4 Active 628511957 Problem Other chronic pain G89.29 Active 98569151 Problem Insomnia, unspecified type G47.00 Active 529922673 Problem Polyneuropathy associated with underlying disease G63 Active 236794414 Problem Lumbar disc disease M51.9 Active 48379302 Problem Type 2 diabetes mellitus without complication, without long-term current use of insulin E11.9 Active 322418913 Problem Neurogenic bladder N31.9 Active 071178909 ALLERGIES Unknown Allergies SOCIAL HISTORY No smoking Hx information available PLAN OF CARE VITAL SIGNS MEDICATIONS Medication Instructions Dosage Frequency Start Date End Date Duration Status Hydrocodone-Acetaminophen 7.5-325 MG Orally 3 times a day 1 tablet 8h May, 28 days Active RESULTS No Results PROCEDURES No Known procedures IMMUNIZATIONS No Known Immunizations
--- OUTSIDE RECORDS SUMMARY | 2017-06-30 18:44 | XMS REPORT ---
Author ELAN Mcmahon [facility] eClinicalWorks Address Unknown Phone Unavailable Care Team Providers Care Cow Washer Name Role Phone ELAN DUMONT CP Unavailable [...] Instructions Start Date End Date Status Dosage Meloxicam [facility] [address]-81 7.5 MG Orally Once a day as needed for pain 1 tablet Duloxetine HCl [facility] [address]-61 60 mg Orally Once a day 1 capsule Dicyclomine HCl [facility] [address]-50 20 mg Orally 3 times a day [address] [facility] [address]-37 4 MG Orally Once a day 1 tablet with breakfast or the first main meal of the day Metformin HCl [facility] [address]-80 500 MG Orally Twice a day 1 tablet with meals Levsin [facility] [address]-82 0.125 MG Orally every 4 hrs as needed for restlesness, excessive secreations 1 tablet before meals as needed Nitrofurantoin Macrocrystal [facility] [address]-06 50 mg Orally Once a day 1 capsule with food or milk Omeprazole [facility] [address]-66 20 mg Orally Once a day [address] [facility] [address]-76 12.5 MG Orally twice a day 1 capsule Results No Known Results Summary Purpose eClinicalWorks Submission
[2017-06-30] MEDS ORDERED: LACTATED RINGERS 1,000 ML IV ONE (18:54)
[2017-06-30] MEDS ORDERED: ONDANSETRON 4 MG/2 ML (SDV) Z0FRAN IVP ONE (19:00)
--- NOTE | 2017-06-30 19:00 | ED GU-Female ---
General Chief Complaint: Abdominal/GI Problems Stated Complaint: NAUSEA Source: patient, jail records Exam Limitations: other (difficult historian) History of Present Illness Date Seen by Provider: Jun 30, 2017 Time Seen by Provider: 18:57 Initial Comments Patient resists to the ER by EMS with a chief complaint that she has not felt good all day today with nausea without vomiting dizziness, lightheadedness like she could pass out. She has a history of Mnire's disease per jail records and was given some fluids by EMS which helped her on the way over. EMS remarks that her blood sugar of 132 and she says her blood sugars and in stable and check them regularly and no changes recently been made her insulin. Her symptoms worsened over the last week. And 2-3 days ago she was started on an antibiotic for urinary tract infection because she was having foul-smelling urine and a urinalysis was obtained in the jail. She says she is still feeling worse having sweats today and doesn't feel like she can get any help. She was apparently asking her primary care physician for benzodiazepines. EMS says that the PCP did not give her the benzodiazepines so she called EMS to come to the ER. She has not asked directly for this medication. She says she wants something for her nausea and wants to know why she feels so bad. She is having no shortness of breath, cough, chest pain, hematuria. Her last bowel movement was today but she said she had to strain. She says she generally aches all over her belly does not have any point of worst tenderness. She is typically mobile by wheelchair only. Spoke [facility] and the pt this AM felt shaky, weak and had a red splotchy rash on her arms. She had a CBG 122 at that time. Started Keflex , 5 days ago. She couldn't find the urinalysis or any copy of the urine culture result but she will fax to us if she does. Allergies and Home Medications Allergies Coded Allergies: Keflex (Verified Allergy, Mild, RASH, 06/30/17) Penicillins (Verified Allergy, Unknown, 12/07/13) Sulfa (Sulfonamide Antibiotics) (Unverified Allergy, Unknown, 12/07/13) Home Medications Atenolol 25 Mg Tablet, 25 MG PO BID, (Reported) Cyclobenzaprine Hcl 10 Mg Tablet, 1 EACH PO Q8H PRN for SPASMS Prescribed by: CHRISSY WYATT on 09/18/14 0953 Cyclobenzaprine Hcl 5 Mg Tablet, 1 EACH PO Q8HR PRN PRN for SPASMS Prescribed by: SHERI DANIEL on 10/05/14 1546 Duloxetine Hcl 60 Mg Capsule.dr, 60 MG PO DAILY, (Reported) Estradiol 42.5 Gm Cream.appl, 1 GM VG HS, (Reported) INSERT OR APPLY TO VAGINAL AREA AT BEDTIME Hydrochlorothiazide 12.5 Mg Tablet, 12.5 MG PO BID, (Reported) Hydrocodone Bit/Acetaminophen 1 Each Tablet, 1 EACH PO Q4-6HRS PRN, (Reported) MAY TAKE 1 OR 2 TABS BY MOUTH EVERY 4-6 HRS NEEDED FOR PAIN. DO NOT EXCEED 3000 MG TYLENOL(ACETAMINOPHEN)IN A 24 HR PERIOD. Hydrocodone Bit/Acetaminophen 1 Each Tablet, 1 EACH PO Q4-6HR PRN for PAIN Prescribed by: SHERI DANIEL on 10/05/14 170 Lansoprazole 30 Mg Capsule.dr, 30 MG PO DAILY, (Reported) Levofloxacin 250 Mg Tablet, 250 MG PO DAILY Prescribed by: CHRISSY WYATT on 07/19/15 1825 Meloxicam 7.5 Mg Tablet, 7.5 MG PO DAILY, (Reported) Nitrofurantoin/Nitrofuran Mac 100 Mg Capsule, 1 EACH PO BID Prescribed by: ABAD RODRIGUEZ on 12/07/13 1130 Phenazopyridine Hcl 200 Mg Tablet, 1 EACH PO TID Prescribed by: NABIL VELASCO on 09/21/12 1717 Polysaccharide Iron Complex 150 Mg Cap, 150 MG PO BID, (Reported) Prednisone 20 Mg Tablet, 40 MG PO DAILY Prescribed by: SHERI DANIEL on 10/05/14 1557 Pregabalin 225 Mg Capsule, 225 MG PO BID, (Reported) Tramadol Hcl 50 Mg Tablet, 50 MG PO TID PRN for PAIN Prescribed by: FRANCISCO CORRALES on 07/30/142058 Patient Home Medication List Home Medication List Reviewed: Yes Constitutional: No chills, diaphoresis, dizziness (says the room is spinning she feels like her head and lift off of her shoulders and she developed pass out.), No fever, malaise EENTM: No ear discharge, No hearing loss, No ear pain Respiratory: No cough, No phlegm, No short of breath, No wheezing Cardiovascular: No chest pain, No edema, No palpitations Gastrointestinal: abdominal pain (generalized tenderness all over mild), constipation, No diarrhea, nausea, No vomiting Genitourinary: denies discharge, denies dysuria : No Musculoskeletal: No back pain, No joint pain Skin: No pruritus, No rash Psychiatric/Neurological: Headache (mild) Past Awunnxk-Ekpsin-Inbrqw Hx Immunizations Up To Date Tetanus Booster (TDap): Unknown Date of Pneumonia Vaccine: Dec 07, 2011 Date of Influenza Vaccine: Feb 04, 2012 Seasonal Allergies Seasonal Allergies: No Surgeries Surgeries: Appendectomy, Bladder Surgery, Hysterectomy, Orthopedic Neurological Neurological Disorders: Concussion, Neuropathy Reproductive System Hx Reproductive Disorders: No Sexually Transmitted Disease: No HIV/AIDS: 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 Genitourinary Genitourinary Disorders: Bladder Infection, Kidney Stones, UTI-Chronic Gastrointestinal Gastrointestinal Disorders: Irritable Bowel Musculoskeletal Musculoskeletal Disorders: Osteoporosis, Chronic Back Pain Endocrine Endocrine Disorders: Diabetes, Non-Insulin dep HEENT Hearing Impairment: Hard of Hearing Psychosocial Behavioral Health Disorders: Depression Blood Transfusions Adverse Reaction to a Blood Tr: No Family Medical History Significant Family History: No Pertinent Family Hx Physical Exam Vital Signs Capillary Refill : General Appearance: WD/WN, no apparent distress HEENT: PERRL/EOMI, TMs normal, pharynx normal Neck: non-tender, supple Cardiovascular: normal peripheral pulses, regular rate, rhythm Respiratory: chest non-tender, lungs clear, normal breath sounds Gastrointestinal: normal bowel sounds, soft, no organomegaly, No distended, tenderness (diffuse all quadrants, mild) Extremities: normal range of motion, normal inspection, no pedal edema, no calf tenderness, normal capillary refill Neurologic/Psychiatric: alert, normal mood/affect, oriented x 3 Skin: normal color, diaphoresis (mild) Progress/Results/Core Measures Suspected Sepsis SIRS Temperature: Pulse: Respiratory Rate: Laboratory Tests 06/30/17 18:38: White Blood Count 17.9H Blood Pressure / Mean: Laboratory Tests 06/30/17 18:38: Creatinine 0.85, Platelet Count 455H, Total Bilirubin 0.5 Results/Orders Lab Results Laboratory Tests Test 06/30/17 18:38 06/30/17 20:50 Range/Units White Blood Count 17.9 H 4.3-11.0 10^3/uL Red Blood Count 4.78 4.35-5.85 10^6/uL Hemoglobin 14.8 11.5-16.0 G/DL Hematocrit 42 35-52 % Mean Corpuscular Volume 88 80-99 FL Mean Corpuscular Hemoglobin 31 25-34 PG Mean Corpuscular Hemoglobin Concent 35 32-36 G/DL Red Cell Distribution Width 12.7 10.0-14.5 % Platelet Count 455 H 130-400 10^3/uL Mean Platelet Volume 10.4 7.4-10.4 FL Neutrophils (%) (Auto) 57 42-75 % Lymphocytes (%) (Auto) 36 12-44 % Monocytes (%) (Auto) 7 0-12 % Eosinophils (%) (Auto) 1 0-10 % Basophils (%) (Auto) 0 0-10 % Neutrophils # (Auto) 10.1 H 1.8-7.8 X 10^3 Lymphocytes # (Auto) 6.4 H 1.0-4.0 X 10^3 Monocytes # (Auto) 1.2 H 0.0-1.0 X 10^3 Eosinophils # (Auto) 0.1 0.0-0.3 10^3/uL Basophils # (Auto) 0.0 0.0-0.1 10^3/uL Neutrophils % (Manual) 59 % Lymphocytes % (Manual) 31 % Monocytes % (Manual) 4 % Eosinophils % (Manual) 1 % Basophils % (Manual) 0 % Band Neutrophils 5 % Blood Morphology Comment NORMAL Sodium Level 136 135-145 MMOL/L Potassium Level 4.1 3.6-5.0 MMOL/L Chloride Level 98 98-107 MMOL/L Carbon Dioxide Level 25 21-32 MMOL/L Anion Gap 13 5-14 MMOL/L Blood Urea Nitrogen 14 7-18 MG/DL Creatinine 0.85 0.60-1.30 MG/DL Estimat Glomerular Filtration Rate > 60 BUN/Creatinine Ratio 16 Glucose Level 118 H 70-105 MG/DL Calcium Level 10.0 8.5-10.1 MG/DL Magnesium Level 1.7 L 1.8-2.4 MG/DL Total Bilirubin 0.5 0.1-1.0 MG/DL Aspartate Amino Transf (AST/SGOT) 32 5-34 U/L Alanine Aminotransferase (ALT/SGPT) 31 0-55 U/L Alkaline Phosphatase 78 40-136 U/L Troponin I < 0.30 <0.30 NG/ML C-Reactive Protein High Sensitivity 0.94 H 0.00-0.50 MG/DL Total Protein 7.7 6.4-8.2 GM/DL Albumin 4.2 3.2-4.5 GM/DL Lipase 43 8-78 U/L Urine Color YELLOW Urine Clarity SLIGHTLY CLOUDY Urine pH 7 5-9 Urine Specific [place] 1.010 L 1.016-1.022 Urine Protein 1+ H NEGATIVE Urine Glucose (UA) NEGATIVE NEGATIVE Urine Ketones NEGATIVE NEGATIVE Urine Nitrite POSITIVE H NEGATIVE Urine Bilirubin NEGATIVE NEGATIVE Urine Urobilinogen NORMAL NORMAL MG/DL Urine Leukocyte Esterase 3+ H NEGATIVE Urine RBC (Auto) 2+ H NEGATIVE Urine RBC 5-10 H /HPF Urine WBC 50-100 H /HPF Urine Crystals NONE /LPF Urine Bacteria MODERATE H /HPF Urine Casts NONE /LPF Urine Mucus NEGATIVE /LPF Urine Culture Indicated YES Urine Opiates Screen POSITIVE H NEGATIVE Urine Oxycodone Screen NEGATIVE NEGATIVE Urine Methadone Screen NEGATIVE NEGATIVE Urine Propoxyphene Screen NEGATIVE NEGATIVE Urine Barbiturates Screen NEGATIVE NEGATIVE Ur Tricyclic Antidepressants Screen NEGATIVE NEGATIVE Urine Phencyclidine Screen NEGATIVE NEGATIVE Urine Amphetamines Screen NEGATIVE NEGATIVE Urine Methamphetamines Screen NEGATIVE NEGATIVE Urine Benzodiazepines Screen NEGATIVE NEGATIVE Urine Cocaine Screen NEGATIVE NEGATIVE Urine Cannabinoids Screen NEGATIVE NEGATIVE My Orders Orders - RAFAELA SKAGGS Cbc With Automated Diff (06/30/17 18:54) Comprehensive Metabolic Panel (06/30/17 18:54) Hs C Reactive Protein (06/30/17 18:54) Drug Screen Stat (Urine) (06/30/17 18:54) Lipase (06/30/17 18:54) Magnesium (06/30/17 18:54) Ua Culture If Indicated (06/30/17 18:54) Saline Lock/Iv-Start (06/30/17 18:54) Lactated Ringers (Lr 1000 Ml Iv Solution (06/30/17 18:54) Straight Cath For Spec.-Adult (06/30/17 18:54) Ondansetron Injection (Zofran Injectio (06/30/17 19:00) Continuous Ekg Monitoring (06/30/17 19:07) Ekg Tracing (06/30/17 19:07) Troponin I (06/30/17 19:07) Acetaminophen Tablet (Tylenol Tablet) (06/30/17 19:15) Manual Differential (06/30/17 18:38) Ciprofloxacin Iv 400mg/200ml (Cipro Iv S (06/30/17 20:45) Urine Culture (06/30/17 20:50) Medications Given in ED Current Medications Medications Dose Ordered Sig/Santos Route Start Time Stop Time Status Last Admin Dose Admin Acetaminophen 1,000 mg ONCE ONCE PO 06/30/17 19:15 06/30/17 19:16 DC 06/30/17 19:20 1,000 MG Ciprofloxacin/ Dextrose 200 ml @ 200 mls/hr ONCE ONCE IV 06/30/17 20:45 06/30/17 21:44 DC 06/30/17 20:46 200 MLS/HR Lactated Ringer's 1,000 ml @ 0 mls/hr Q0M ONCE IV 06/30/17 18:54 06/30/17 18:58 DC 06/30/17 19:05 0 MLS/HR Ondansetron HCl 4 mg ONCE ONCE IVP 06/30/17 19:00 06/30/17 19:01 DC 06/30/17 19:05 4 MG Vital Signs/I&O Capillary Refill : Progress Note #1: Time: 19:06 Progress Note Patient has Mnire's but this may be more related to her recent urinary tract infection. Not really sure where the urinalysis was collected patient's report.We'll repeat a urine and some blood work see if she is getting more sick but her vital signs are aseptic at this time. We'll give her some nausea medicines and Tylenol for headache and some fluids. Finally for the unlikely possibility that this is an atypical coronary symptoms of diaphoresis and nausea will get EKG and troponin. She's having no chest pain, shortness of breath or other adventitious vital signs. Progress Note #2: Time: 20:37 Progress Note Patient has a urine culture From June 23, 2017 demonstrating MCL pneumonia which was sensitive to cephalosporins. She has an allergy to penicillin and per the jail she has an allergy to Keflex specifically. Her red splotchy skin may be due to this. She has an elevated white count and will not obtain any urine from her yet. Start some Cipro and discontinue the cephalosporins. The patient's vital signs are still aseptic and she feels better after some fluids. She is no longer diaphoretic. She has however requesting something for anxiety she uses Xanax at home. We have asked her to speak to her primary care physician tomorrow and we'll give her some Vistaril which will help with anxiety as well as possibly with her reaction that she may be experiencing from the Keflex is causing her skin rash. She is not pruritic this time. ECG Initial ECG Impression Date: Jun 30, 2017 Initial ECG Impression Time: 19:23 Initial ECG Rate: 86 Initial ECG Rhythm: Normal Sinus Initial ECG Intervals: QT (QTC of 498 ms) Initial ECG Impression: Normal, Nonspecific Changes Initial ECG Comparisson: No Previous ECG Available Comment No ST elevation or depression Departure Impression Impression: Primary Impression: Urinary tract infection Qualified Codes: N30.01 - Acute cystitis with hematuria Disposition: HOME, SELF-CARE Condition: Improved Departure-Patient Inst. Decision time for Depature: 22:05 Referrals: ELAN DUMONT MD (PCP/Family) Primary Care Physician Patient Instructions: Urinary Tract Infection, Adult (DC) Add. Discharge Instructions: Drink plenty of fluids and start the ciprofloxacin 500mg by mouth Q12 x 7 days. Contact the primary care physician and have the patient seen before the weekend if possible. Notify primary care physician if she develops septic vital signs. Encourage lots of fluids. All discharge instructions reviewed with patient and/or family. Voiced understanding. Scripts Ciprofloxacin HCl (Ciprofloxacin HCl) 500 Mg Tablet 500 MG PO BID for 7 Days, #14 TAB Prov: RAFAELA SKAGGS 06/30/17 Copy Copies To 1: LESLI BAKER DO RAFAELA SKAGGS Jun 30, 2017 19:00
[2017-06-30] MEDS ORDERED: ACETAMINOPHEN 500 MG TAB (TYLENOL) PO ONE (19:15)
[2017-06-30 19:41] LABS: BASOPHILS % (AUTO) 0 % (0-10); EOSINOPHILS # (AUTO) 0.1 10^3/uL (0.0-0.3); EOSINOPHILS % (AUTO) 1 % (0-10); HEMATOCRIT 42 % (35-52); HEMOGLOBIN 14.8 G/DL (11.5-16.0); LYMPHOCYTES # (AUTO) 6.4 X 10^3 (1.0-4.0); LYMPHOCYTES % (AUTO) 36 % (12-44); MEAN CORPUSCULAR HEMOGLOBIN 31 PG (25-34); MEAN CORPUSCULAR HGB CONC 35 G/DL (32-36); MEAN CORPUSCULAR VOLUME 88 FL (80-99); MEAN PLATELET VOLUME 10.4 FL (7.4-10.4); MONOCYTES # (AUTO) 1.2 X 10^3 (0.0-1.0); MONOCYTES % (AUTO) 7 % (0-12); NEUTROPHILS # (AUTO) 10.1 X 10^3 (1.8-7.8); NEUTROPHILS % (AUTO) 57 % (42-75); PLATELET COUNT 455 10^3/uL (130-400); RED BLOOD COUNT 4.78 10^6/uL (4.35-5.85); RED CELL DISTRIBUTION WIDTH 12.7 % (10.0-14.5); WHITE BLOOD COUNT 17.9 10^3/uL (4.3-11.0)
[2017-06-30 19:55] LABS: ALANINE AMINOTRANSFERASE 31 U/L (0-55); ALBUMIN 4.2 GM/DL (3.2-4.5); ALKALINE PHOSPHATASE 78 U/L (40-136); BILIRUBIN,TOTAL 0.5 MG/DL (0.1-1.0); BUN/CREATININE RATIO 16; CARBON DIOXIDE 25 MMOL/L (21-32); CHLORIDE 98 MMOL/L (98-107); CREATININE SERUM 0.85 MG/DL (0.60-1.30); GFR ESTIMATED > 60; GLUCOSE 118 MG/DL (70-105); LIPASE 43 U/L (8-78); MAGNESIUM 1.7 MG/DL (1.8-2.4); POTASSIUM 4.1 MMOL/L (3.6-5.0); SODIUM 136 MMOL/L (135-145); TOTAL PROTEIN 7.7 GM/DL (6.4-8.2)
[2017-06-30 20:03] LABS: BAND NEUTROPHILS 5 %; BASOPHILS % (MANUAL) 0 %; EOSINOPHILS % (MANUAL) 1 %; LYMPHOCYTES % (MANUAL) 31 %; MONOCYTES % (MANUAL) 4 %; NEUTROPHILS % (MANUAL) 59 %; RBC MORPH NORMAL
[2017-06-30] MEDS ORDERED: CIPROFLOXACIN IV 400MG/200ML 200 ML IV ONE (20:45)
[2017-06-30 20:59] LABS: BILIRUBIN,URINE NEGATIVE (NEGATIVE); CLARITY,URINE SLIGHTLY CLOUDY; COLOR,URINE YELLOW; GLUCOSE, URINE (UA) NEGATIVE (NEGATIVE); KETONES,URINE NEGATIVE (NEGATIVE); LEUKOCYTE ESTERASE ,URINE 3+ (NEGATIVE); NITRITE,URINE POSITIVE (NEGATIVE); PH,URINE 7 (5-9); PROTEIN,URINE 1+ (NEGATIVE); UROBILINOGEN,URINE NORMAL (NORMAL)
[2017-06-30 21:06] LABS: BACTERIA,URINE MODERATE /HPF; WBC,URINE 50-100 /HPF
[2017-06-30 21:23] LABS: AMPHETAMINE SCREEN, URINE NEGATIVE (NEGATIVE); BARBITURATE SCREEN URINE NEGATIVE (NEGATIVE); BENZODIAZEPINES SCREEN URINE NEGATIVE (NEGATIVE); CANNABINOID SCREEN, URINE NEGATIVE (NEGATIVE); COCAINE SCREEN URINE NEGATIVE (NEGATIVE); METHADONE STAT NEGATIVE (NEGATIVE); METHAMPHETAMINE SCREEN URINE S NEGATIVE (NEGATIVE); OPIATE SCREEN URINE POSITIVE (NEGATIVE); OXYCODONE STAT NEGATIVE (NEGATIVE); PROPOXYPHENE STAT NEGATIVE (NEGATIVE); TRICYCLIC ANTIDEPRESSANTS SCRE NEGATIVE (NEGATIVE)
[2017-06-30] MEDS ORDERED: hydrOXYzine (VISTARIL) 25 MG CAP PO ONE (22:00)
[2017-06-30] MEDS ORDERED: CIPR500T4 PO (22:09)
[2017-06-30 22:55] VITALS: BP 126/99
== END 2017-06-30 22:55 | disposition home or self-care (01) ==
LOC: EDUNIT# 18:29 → ER 18:30
DX: N39.0 Urinary tract infection, site not specified (principal); F32.9 Major depressive disorder, single episode, unspecified; E11.40 Type 2 diabetes mellitus with diabetic neuropathy, unspecified; M81.0 Age-related osteoporosis without current pathological fracture; Z90.49 Acquired absence of other specified parts of digestive tract; Z87.442 Personal history of urinary calculi; Z87.828 Personal history of other (healed) physical injury and trauma; Z87.19 Personal history of other diseases of the digestive system; Z90.710 Acquired absence of both cervix and uterus; Z79.52 Long term (current) use of systemic steroids; Z88.0 Allergy status to penicillin; Z88.2 Allergy status to sulfonamides; Z88.1 Allergy status to other antibiotic agents
CPT/HCPCS: 36415; 51701; 80053; 80306; 81000; 83690; 83735; 84484; 85007; 85027; 86141; 87077; 87088; 87186; 93005; 96361; 96365; 96366; 96375

== ENCOUNTER → 2017-08-18 | Outpatient (CLI) | payer MEDICAID ==
[2017-08-18 13:42] LABS: BILIRUBIN,URINE NEGATIVE (NEGATIVE); CLARITY,URINE VERY CLOUDY; COLOR,URINE YELLOW; GLUCOSE, URINE (UA) NEGATIVE (NEGATIVE); KETONES,URINE NEGATIVE (NEGATIVE); LEUKOCYTE ESTERASE ,URINE 3+ (NEGATIVE); NITRITE,URINE NEGATIVE (NEGATIVE); PH,URINE 7 (5-9); PROTEIN,URINE NEGATIVE (NEGATIVE); UROBILINOGEN,URINE NORMAL (NORMAL)
[2017-08-18 14:07] LABS: BACTERIA,URINE LARGE /HPF; RBC,URINE 0-2 /HPF; WBC,URINE TNTC /HPF
[2017-08-18 14:08] LABS: TRIPLE PHOSPHATE CRYSTAL,UR RARE /LPF
== END ==
LOC: LABNPT 13:35
PROVIDERS: ATTEND Nurse Practitioner Community Health
DX: E11.9 Type 2 diabetes mellitus without complications (principal); R35.0 Frequency of micturition; R39.15 Urgency of urination; R30.0 Dysuria
CPT/HCPCS: 81000; 82043; 87088; 87186

== ENCOUNTER → 2017-10-07 | Outpatient (CLI) | payer MEDICAID ==
--- NOTE | 2017-10-07 11:24 | Diagnostic Imaging Report ---
INDICATION: Three-month followup of right breast complex cyst. Correlation is made with prior study from 06/21/2017. Sonographic interrogation of the 9 o'clock location of the right breast 3 cm from the nipple was performed. The previously noted circumscribed hypoechoic mass at this location is again noted measuring 6 mm x 6 mm x 8 mm compared with 8 mm x 6 mm x 7 mm on prior. This does again contains some internal debris and is suggestive of a complex cyst. No internal vascularity is present. IMPRESSION: Stable complex cyst 9 o'clock location of the right breast 3 cm from the nipple. Additional followup in 3 months is recommended to confirm stability. ACR BI-RADS Category 3: Probably benign findings. Dictated by: Dictated on workstation # [id number]
== END ==
LOC: RAD 09:52
PROVIDERS: ATTEND Nurse Practitioner Community Health
DX: N60.01 Solitary cyst of right breast (principal)

== ENCOUNTER → 2018-01-13 | Outpatient (CLI) | payer MEDICAID ==
--- NOTE | 2018-01-13 12:20 | Diagnostic Imaging Report ---
PROCEDURE: MRI lumbar spine. TECHNIQUE: Multiplanar, multisequence MRI of the lumbar spine was performed without contrast. INDICATION: Back pain. FINDINGS: The previous MRI lumbar spine exam performed on 03/13/2015 noted degenerative disc and facet disease at the L4-5 level. There was narrowing of the neural foramen bilaterally at this level, particularly on the left. On this exam, those degenerative changes are again visualized, and they do not seem to have progressed significantly. The disc material on the left is in close proximity to the exiting left nerve root, however, and there may be encroachment of the nerve root. There is some compression of the thecal sac posteriorly by infolding of the ligamentum flavum and bony overgrowth of the facets. This does result in some deformity of the thecal sac, but there is no significant central stenosis. The overall appearance of the lumbar spine has not changed significantly otherwise. No new area of spinal stenosis or nerve root encroachment has developed. 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 There also appears to be a hemangioma within the vertebral body of L5, and this finding is unchanged as well. There is no abnormal signal arising from the osseous structures to indicate bone edema or a fracture. There is no sign of a cord lesion. There is no paraspinal mass visualized. IMPRESSION: 1. The degenerative disc, ligamentous, and bony disease at the L4-5 level seen on the prior study has not progressed. There is still no evidence for central stenosis at this level, but there is persistent narrowing of the neural foramen, particularly on the left. There may be encroachment of the exiting left nerve root. 2. The remainder of the lumbar spine is not changed significantly. No new area of spinal stenosis or nerve root encroachment has developed. 3. There is no sign of an acute bony abnormality or of a cord lesion. 4. 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 Dictated by: Dictated on workstation # [id number]
== END ==
LOC: RAD 09:59
PROVIDERS: ATTEND Orthopaedic Surgery Orthopaedic Surgery of the Spine
DX: M48.061 Spinal stenosis, lumbar region without neurogenic claudication (principal); M47.816 Spondylosis without myelopathy or radiculopathy, lumbar region
CPT/HCPCS: 72148

== ENCOUNTER 2018-01-22 14:03 | Inpatient (IN) | payer MEDICAID ==
[~2018-01-22] VITALS: Ht 152.4 cm; Wt 93.9 kg
--- OUTSIDE RECORDS SUMMARY | 2018-01-22 14:09 | XMS REPORT | Clinical Summary ---
Author Author [facility] Organization [facility] Address Unknown Phone Unavailable Care Team Providers Care Machine Packager Name Role Phone Nichloas Harper MD PCP Nicholas Harper MD Unavailable Emile Garcia MD Unavailable Aldo Berg MD Unavailable Adam Tirado MD Unavailable Christina Peña RN Unavailable Unavailable Kamran Mcclain MD Unavailable Dann Moy MD Unavailable Lemuel Chavez MD Unavailable Sarah Talbert RN Unavailable Unavailable Source Comments Some departments are not documenting in the electronic medical record. If you do not see the information that you expected, contact Release of Information in the Health Information Management department at [phone] for further assistance in locating additional records.[facility] Allergies Active Allergy Reactions Severity Noted Date [...] SCREENING 1989 COLORECTAL CANCER 12/07/1999 SCREENING SHINGLES RECOMBINANT 12/07/1999 VACCINE (1 of 2) OSTEOPOROSIS SCREENING 2014 PNEUMONIA (PCV13/PPSV23) 2014 02/04/2012 VACCINES (1 of 2 - PCV13) INFLUENZA VACCINE 11/03/2017 TETANUS VACCINE 02/03/2022 02/04/2012 PERTUSSIS VACCINE Completed 02/04/2012 Results Not on filefrom Last 3 Months
--- OUTSIDE RECORDS SUMMARY | 2018-01-22 14:10 | XMS REPORT ---
Author Author LAURIE MAHAJAN Organization [facility] Address [address] [place] [address] Care Team Providers Care Cementer Hand Name Role Phone LAURIE MAHAJAN Unavailable PROBLEMS Type Condition ICD9-CM Code HOQ86-QC Code Onset Dates Condition Status SNOMED Code Problem Lumbar disc disease M51.9 Active 18219354 Problem Neurogenic bladder N31.9 Active 577648231 Problem Polyneuropathy associated with underlying disease G63 Active 147520053 Problem Anxiety F41.9 Active 37430261 Problem Generalized anxiety disorder F41.1 Active 85215368 Problem Insomnia, unspecified type G47.00 Active 402392721 Problem Type 2 diabetes mellitus without complication, without long-term current use of insulin E11.9 Active 648099208 Problem Gastroesophageal reflux disease without esophagitis K21.9 Active 020830323 Problem Other chronic pain G89.29 Active 05488972 Problem Psychosis, unspecified psychosis type F29 Active 70834925 Problem Fibromyalgia M79.7 Active 182865926 Problem Nicotine abuse Z72.0 Active 52439560 Problem Irritable bowel syndrome with diarrhea K58.0 Active 570659960 Problem Chronic pain disorder G89.4 Active 548289507 Problem Meniere disease, unspecified laterality H81.09 Active 53321767 ALLERGIES No Information ENCOUNTERS Encounter Location Date Diagnosis [facility] [id number] [address] 15 Jan, 2018 Lumbar disc disease M51.9 [facility] [address], [place] [address] 02 Jan, 2018 [place] [id number] [address] 14 Dec, 2017 Lumbar disc disease M51.9 [facility] [address] [place] [id number] Dec, Other acute back pain M54.9 and Lumbar disc disease M51.9 [facility] [address] [place] [address]- 6612 Nov, Lumbar disc disease M51.9 [facility] [id number] [place] [address] 70251- 7741 Nov, [facility] [id number] [place] [address] 15767- 2468 Oct, Lumbar disc disease M51.9 [place] [id number] [place] [address] 89254- 2380 Oct, [facility] [id number] Oct, Polyneuropathy associated with underlying disease G63 ; Type 2 diabetes mellitus without complication, without long-term current use of insulin E11.9 and Family history of CVA Z82.3 [place] [id number] [place] [address]36- 3154 Sep, Lumbar disc disease M51.9 [place] [address] [place] [address] 89057- 3732 Sep, [place] [id number] [place] [address] 53331- 9170 August, Lumbar disc disease M51.9 [place] [address] [place] [address] 96131- 1490 August, [facility] [address] [place] [id number] August, Meniere''s disease, unspecified laterality H81.09 and Type 2 diabetes mellitus without complication, without long-term current use of insulin E11.9 [place] [address] [place] [address] 41260- 6034 August, BMI 40.0-44.9, adult Z68.41 and Anxiety F41.9 [place] [id number] [place] [address] 62805- 7094 Jul, Lumbar disc disease M51.9 [place] [address] [address] Jul, Generalized anxiety disorder F41.1 [place] [address] [address] Jul, [place] [id number] [place] [address] 16843- 3735 Jul, Lumbar disc disease M51.9 [facility] [address] [place] [id number] Jun, Urinary tract infection without hematuria, site unspecified N39.0 ; Bilateral impacted cerumen H61.23 ; Loose stools R19.5 and Type 2 diabetes mellitus without complication, without long-term current use of insulin E11.9 [place] [address] [place] [address] 53845- 3528 Jun, [facility] [id number] [place] [address] 31250- 7232 Jun, Fibromyalgia M79.7 [place] [id number] [place] [address] 37424- 6766 Jun, Breast mass, right N63.10 [place] [address], [place] [address] Jun, Breast mass, right N63.10 [facility] [address] [place] [id number] Jun, Breast mass, right N63.10 ; Type 2 diabetes mellitus without complication , without long-term current use of insulin E11.9 and Fibromyalgia M79.7 [place] [address] [place] [address] 12363- 5461 Jun, Gastroesophageal reflux disease without esophagitis K21.9 [facility] [id number] [place] [id number] Jun, Lumbar disc disease M51.9 [place] [address] [address] May, [facility] [id number] [id number] May, [facility] [id number] [address] May, [facility] [id number] [id number] May, Lumbar disc disease M51.9 [facility] [id number] [id number] Apr, [facility] [address] [id number] Apr, Viral upper respiratory tract infection J06.9 and Impacted cerumen, bilateral H61.23 [facility] [id number] [id number] Apr, [facility] [id number], [place] [address] Apr, [facility] [id number] [address] Apr, Lumbar disc disease M51.[address] [facility] [address] [id number] Mar, Lumbar disc disease M51.9 and Fibromyalgia M79.7 [facility] [id number] [address] Mar, [facility] [address] [id number] [id number] Feb, [facility] [address] [facility] [id number], [place] [address] Jan, Type 2 diabetes mellitus without complication, without long- term current use of insulin E11.[address] [facility] [address] [id number] Jan, Type 2 diabetes mellitus without complication, without long-term current use of insulin E11.9 ; Fibromyalgia M79.7 and Lumbar disc disease M51.9 [facility] [address] [id number] [id number] Jan, [facility] [address] [id number][place] [id number] Jan, [facility] [address] [facility] [id number], [place] [address] Dec, [facility] [address] [id number] [id number] Dec, [facility] [address] [id number] [id number] Dec, [facility] [address] [id number] [address] Nov, Pre-procedure lab exam Z01.812 [facility] [address] [facility] [id number], [place] [address] Nov, Ventral hernia without obstruction or gangrene K43.9 [facility] [address] [id number], [place] [id number] Nov, [facility] [address] [id number], [place] [id number] Nov, [facility] [address] [place] [id number] Nov, Ventral hernia without obstruction or gangrene K43.9 [facility] [address] [place] [id number] Nov, Fibromyalgia M79.7 and Polyneuropathy associated with underlying disease G63 [facility] [address] [facility] [id number], [place] [address] Oct, [facility] [address] [id number], [place] [id number] Oct, [facility] [address] [id number], [place] [address] Oct, [facility] [address] [id number], [place] [address] Oct, [facility] [place] [facility] [address] [id number] [place] [address] Sep, [facility] [place] [facility] [address] [id number] [place] [address]- [address] Sep, [facility] [place] [facility] [address] [id number] [place] [address]- 2546 Sep, [facility] [place] [facility] [address] [id number] [place] [address]- [address] August, [facility] [address] [facility] [id number] August, Right medial knee pain M25.561 [facility] [place] [facility] [address] [id number] [place] [address]- [address] August, [facility] [place] [facility] [address] [id number] [place] [address]- [address]46 August, [facility] [place] [facility] [address] [id number] [place] [address]- [address]46 August, [facility] [place] [facility] [address] [id number] [place] [id number] August, [facility] [place] [facility] [address] [id number] [place] [address]- 8686 August, [facility] [place] [facility] [address] [id number] [place] [address] August, [facility] [place] [facility] [address] [id number][place] [id number] Jul, [facility] [place] [facility] [address] [id number] [place] [address]- 2546 Jul, [facility] [place] [facility] [address] [id number] [place] [id number] Jul, [facility] [place] [facility] [address] [id number] [place] [address]- 2546 Jun, [facility] [place] [facility] [address] [id number] [place] [address]- 38[address] Jun, [facility] [address], [place] [address] May, [facility] [address], [place] [address]- 9986 May, [facility] [address], [place] [address]- [address] May, [facility] [address], [place] [address]- 59[address] May, [facility] [address], [place] [address] Apr, [facility] [address] [place] [id number] Apr, Upper respiratory infection with cough and congestion J06.9 [facility] [id number] [place] [id number] Apr, [facility] [address], [place] [address]- 8[address] Apr, [facility] [address] [place] [address] 45621- 6603 Mar, [facility] [address], [place] [address]- [address] Mar, [facility] [address], [place] [address]- 7280 Mar, Other chronic pain G89.29 [facility] [address], [place] [address]- [address] Mar, [facility] [address], [place] [address]- 7[address] Mar, [facility] [address] [address]- 2729 Feb, [facility] [id number] [address] Feb, [facility] [address] [place] [id number] Feb, Insomnia, unspecified type G47.00 and Swelling of face R22.0 [facility] [address], [place] [address]- 9965 Feb, [facility] [id number] [place] [address] 19698- 4017 Feb, [facility] [id number] [place] [address] 58308- 7779 Feb, [facility] [id number] [place] [address] 17701- 7888 Feb, [facility] [id number] [place] [address] 06666- 4081 Jan, [facility] [id number] [place] [address] 88688- 0568 Jan, [facility] [id number] [place] [address] 63355- 9592 Jan, Neurogenic bladder N31.9 [facility] [id number] [place] [address] 96148- 6943 Jan, [facility] [address] [place] [address] 14992- 0600 Jan, [facility] [id number] [place] [address] 62692- 4648 Jan, [facility] [id number] [address]- 9330 Jan, [facility] [id number] [place] [address] 00103- 8798 Jan, Screening for breast cancer Z12.39 [facility] [address], [place] [address]- 1161 Jan, [facility] [id number] [place] [address] 37783- 6781 Dec, 2015 Type 2 diabetes mellitus without complication, without long- term current use of insulin E11.9 ; Lumbar disc disease M51.9 ; Polyneuropathy associated with underlying disease G63 and Neurogenic bladder N31.9 [facility] [address], [place] [address]- 3573 16 Dec, 2015 [facility] [address] [place] [address] 28093- 8413 14 Dec, 2015 Other chronic pain G89.29 [facility] [address] [place] [address] 69915- 2199 Dec, [place] [id number] [place] [address] 74140- 2339 Nov, [facility] [id number] [place] [address] 50189- 3677 Nov, [facility] [id number] [place] [address] 72510- 8846 Nov, Type 2 diabetes mellitus without complication, [...] anemia, unspecified iron deficiency anemia type D50.9 [place] [address], [place] [address]- 6325 Nov, [facility] [address], [place] [address]- 2163 Nov, [place] [id number] [place] [address] 67204- 1424 Nov, [place] [address], [place] [address]- 8776 Nov, [facility] [id number] [place] [address] 86507- 3475 Nov, [facility] [id number] [address] 2340 Nov, [facility] [id number], [place] [address]- 8401 Nov, [facility] [id number], [place] [address]- 8273 Jul, [facility] [address] [address] 1513 Jul, [facility] [address], [place] [address]- 4754 August, [facility] [address], [place] [address]- 1725 Jun, [facility] [address], [place] [address]- 9506 Oct, IMMUNIZATIONS No Known Immunizations SOCIAL HISTORY Never Assessed REASON FOR VISIT Controlled Med Refill PLAN OF CARE VITAL SIGNS MEDICATIONS Medication Instructions Dosage Frequency Start Date End Date Duration Status Hydrocodone-Acetaminophen 7.5-325 MG Orally 2 times a day 1 tablet 12h 15 Jan, 2018 28 days Active RESULTS No Results PROCEDURES [...]
--- OUTSIDE RECORDS SUMMARY | 2018-01-22 14:11 | XMS REPORT ---
Author Author LAURIE MAHAJAN Organization [facility] Address [address] [place] [address] Care Team Providers Care Restaurant Recruiter Name Role Phone LAURIE MAHAJAN Unavailable PROBLEMS Type Condition ICD9-CM Code [id number] Code Onset Dates Condition Status SNOMED Code Problem Lumbar disc disease M51.9 Active 03187283 Problem Neurogenic bladder N31.9 Active 379899921 Problem Polyneuropathy associated with underlying disease G63 Active 314968518 Problem Anxiety F41.9 Active 34818891 Problem Generalized anxiety disorder F41.1 Active 12726734 Problem Insomnia, unspecified type G47.00 Active 179929394 Problem Type 2 diabetes mellitus without complication, without long-term current use of insulin E11.9 Active 523490997 Problem Gastroesophageal reflux disease without esophagitis K21.9 Active 895436068 Problem Other chronic pain G89.29 Active 68053452 Problem Psychosis, unspecified psychosis type F29 Active 37652529 Problem Fibromyalgia M79.7 Active 613747055 Problem Nicotine abuse Z72.0 Active 63315142 Problem Irritable bowel syndrome with diarrhea K58.0 Active 808438522 Problem Chronic pain disorder G89.4 Active 055621190 Problem Meniere disease, unspecified laterality H81.09 Active 75509975 ALLERGIES No Information ENCOUNTERS Encounter Location Date Diagnosis [place] [id number] [address] Jan, [place] [address], [place] [address] 14 Dec, 2017 Lumbar disc disease M51.9 [facility] [address] [place] [id number] 13 Dec, 2017 Other acute back pain M54.9 and Lumbar disc disease M51.9 [place] [id number] [address] Nov, Lumbar disc disease M51.9 [place] [address], [place] [address] Nov, [facility] [id number] [place] [address] 62934- 8690 Oct, Lumbar disc disease M51.9 [place] [id number] [place] [address]5005- 8739 Oct, [facility] [id number] Oct, Polyneuropathy associated with underlying disease G63 ; Type 2 diabetes mellitus without complication, without long-term current use of insulin E11.9 and Family history of CVA Z82.3 [place] [id number] [place] [address] 42908- 4457 Sep, Lumbar disc disease M51.9 [place] [id number] [place] [address] 26290- 1126 Sep, [place] [id number] [place] [address] 85533- 4352 August, Lumbar disc disease M51.9 [place] [id number] [place] [address] 05779- 9696 August, [address] [id number] August, Meniere''s disease, unspecified laterality H81.09 and Type 2 diabetes mellitus without complication, without long-term current use of insulin E11.9 [place] [address] [place] [address] 78550- 0366 August, BMI 40.0-44.9, adult Z68.41 and Anxiety F41.9 [place] [id number] [place] [address] 01806- 4302 Jul, Lumbar disc disease M51.9 [place] [id number] [place] [address] 45028- 8986 Jul, Generalized anxiety disorder F41.1 [place] [address], [place] [address] Jul, [facility] [address] [place] [address] 20000- 3038 Jul, Lumbar disc disease M51.9 [facility] [address] [place] [id number] Jun, Urinary tract infection without hematuria, site unspecified N39.0 ; Bilateral impacted cerumen H61.23 ; Loose stools R19.5 and Type 2 diabetes mellitus without complication, without long-term current use of insulin E11.9 [place] [address] [place] [address] 78957- 1467 Jun, [place] [id number] [place] [address] 10667- 0110 Jun, Fibromyalgia M79.7 [place] [address] [place] [address] 48447- 6260 Jun, Breast mass, right N63.10 [place] [address] [place] [address] 18518- 7530 Jun, Breast mass, right N63.10 [facility] [address] [place] [id number] Jun, Breast mass, right N63.10 ; Type 2 diabetes mellitus without complication , without long-term current use of insulin E11.9 and Fibromyalgia M79.7 [place] [address], [place] [address] Jun, Gastroesophageal reflux disease without esophagitis K21.9 [place] [id number] [place] [address] [id number] Jun, Lumbar disc disease M51.9 [place] [address] [place] [address] 93983- 1524 May, [place] [id number] [id number] May, [facility] [id number] [id number] May, [facility] [id number] [id number] May, Lumbar disc disease M51.9 [facility] [id number] [id number] Apr, [facility] [id number] Apr, Viral upper respiratory tract infection J06.9 and Impacted cerumen, bilateral H61.23 [facility] [id number] [place] [address] [id number] Apr, [facility] [id number], [place] [address] Apr, [facility] [id number] [id number] Apr, [facility] M51.9 [facility] [id number] Mar, Lumbar disc disease M51.9 and Fibromyalgia M79.7 [facility] [id number], [place] [address] Mar, [facility] [address] [id number] [id number] Feb, [facility] [address], [place] [address] Jan, Type 2 diabetes mellitus without complication, without long- term current use of insulin E11.9 [facility] [id number] Jan, Type 2 diabetes mellitus without complication, without long-term current use of insulin E11.9 ; Fibromyalgia M79.7 and Lumbar disc disease M51.9 [facility] [address] [id number] [id number] Jan, [facility] [address] [id number] [id number] Jan, [facility] [address] [facility] [id number], [place] [address]46 Dec, [facility] [address] [id number] [id number] Dec, [facility] [address] [id number] [address] Dec, [facility] [address] [id number] [id number] Nov, Pre-procedure lab exam Z01.812 [facility] [address] [facility] [id number], [place] [address] Nov, Ventral hernia without obstruction or gangrene K43.9 [facility] [address] [id number] [id number] Nov, [facility] [address] [id number] [address] Nov, [facility] [address] [place] [id number] Nov, Ventral hernia without obstruction or gangrene K43.9 [facility] [address] [place] [address] Nov, Fibromyalgia M79.7 and Polyneuropathy associated with underlying disease G63 [facility] [address] [facility] [id number], [place] [address] 2546 Oct, [facility] [address] [id number] [id number] Oct, [facility] [address] [id number] [address] Oct, [facility] [address] [id number] [address] Oct, [facility] [address] [id number] [id number] Sep, [facility] [place] [facility] [address] [id number] [place] [address] Sep, [facility] [address] [id number] [place] [address]- 1336 Sep, [facility] [address] [id number] [place] [address] August, [facility] [address] [place] [id number] August, Right medial knee pain M25.561 [facility] [address] [id number] [place] [address]- 1136 August, [facility] [address] [id number] [place] [address]- 2546 August, [facility] [address] [id number] [place] [address] 2546 August, [facility] [place] [facility] [address] [id number] [place] [id number] August, [facility] [place] [facility] [address] [id number] [place] [address]- 2546 August, [facility] [place] [facility] [address] [id number] [place] [id number] August, [facility] [place] [facility] [address] [id number] [place] [id number] Jul, [facility] [place] [facility] [address] [id number] [place] [address]- 2546 Jul, [facility] [place] [facility] [address] [id number] [place] [id number] Jul, [facility] [place] [facility] [address] [id number] [place] [address]- 2546 Jun, [facility] [place] [facility] [address] [id number] [place] [address]- 2546 Jun, [facility] [place] [facility] [address] [id number] [place] [address] 3554 May, [facility] [address], [place] [address] May, [facility] [address], [place] [address]- 4716 May, [facility] [address], [place] [address]- 8023 May, [facility] [address] [place] [address] 03132- 1272 Apr, [facility] [address] [place] [id number] Apr, Upper respiratory infection with cough and congestion J06.9 [facility] [id number] [place] [address] [id number] Apr, [facility] [address] [place] [address] 43868- 8301 Apr, [facility] [address] [place] [address] 44087- 5221 Mar, [facility] [address] [place] [address] 51774- 8147 Mar, [facility] [address] [place] [address] 38692- 6678 Mar, Other chronic pain G89.29 [facility] [address] [place] [address] 69480- 5098 Mar, [facility] [address], [place] [address]- 4109 Mar, [facility] [address] [place] [address] 73817- 9061 Feb, [facility] [address], [place] [address]- 9[address] Feb, [facility] [address] [place] [id number] Feb, Insomnia, unspecified type G47.00 and Swelling of face R22.0 [facility] [address], [place] [address]- 9585 16 Feb, 2016 [facility] [id number] [place] [address] 63868- 2466 Feb, [facility] [id number] [place] [address] 96217- 9249 Feb, [facility] [id number] [place] [address] 41822- 8194 Feb, [facility] [id number] [place] [address] 92842- 2432 Jan, [facility] [id number] [place] [address] 33511- 8725 Jan, [facility] [id number] [place] [address] 59386- 4259 Jan, Neurogenic bladder N31.9 [facility] [id number] [place] [address] 52601- 4462 Jan, [facility] [id number] [place] [address] 54425- 4467 Jan, [facility] [id number] [place] [address] 28965- 1542 Jan, [facility] [id number] [place] [address] 01436- 5505 Jan, [facility] [address], [place] [address]- 2474 Jan, Screening for breast cancer Z12.39 [facility] [id number] [place] [address] 24907- 1155 Jan, [facility] [address], [place] [address]- 5685 Dec, Type 2 diabetes mellitus without complication, without long- term current use of insulin E11.9 ; Lumbar disc disease M51.9 ; Polyneuropathy associated with underlying disease G63 and Neurogenic bladder N31.9 [facility] [address], [place] [address]- 5432 16 Dec, 2015 [facility] [address] [place] [address] 73530- 2498 14 Dec, 2015 Other chronic pain G89.29 [facility] [id number] [place] [address] 85607- 2153 Dec, [facility] [id number] [place] [address] 98135- 5140 Nov, [facility] [id number] [place] [address] 46038- 5510 Nov, [facility] [id number] [place] [address] 76087- 6505 Nov, Type 2 diabetes mellitus without complication, [...] anemia, unspecified iron deficiency anemia type D50.9 [facility] [address], [place] [address]- 9256 Nov, [facility] [address], [place] [address]- 2142 Nov, [facility] [address], [place] [address]- 1664 Nov, [facility] [id number] [place] [address] 63781- 5278 Nov, [facility] [address], [place] [address]- 4799 Nov, [facility] [id number] [place] [address] 13024- 8209 18 Nov, 2015 [facility] [address] [facility] [id number] [place] [address]- 0504 15 Nov, 2015 [facility] [address] [facility] [id number], [place] [address]- 4726 14 Jul, 2014 [facility] [address] [facility] [id number], [place] [address]- 8906 Jul, [facility] [address] [facility] [id number], [place] [address]- 1292 August, [facility] [address] [facility] [id number], [place] [address]- 7305 Jun, [facility] [address] [facility] [id number], [place] [address]- 4349 Oct, IMMUNIZATIONS No Known Immunizations SOCIAL HISTORY Never Assessed REASON FOR VISIT Change in [facility] PLAN OF CARE VITAL SIGNS MEDICATIONS Medication Instructions Dosage Frequency Start Date End Date Duration Status Ziprasidone HCl 20 mg Orally Twice a day 1 capsule with food 12h Active RESULTS No Results PROCEDURES No Known [...]
--- OUTSIDE RECORDS SUMMARY | 2018-01-22 14:11 | XMS REPORT ---
Author Author LAURIE MAHAJAN Organization [facility] Address [address] [place] [address] Care Team Providers Care Mva Still Operator Name Role Phone LAURIE MAHAJAN Unavailable PROBLEMS Type Condition ICD9-CM Code HEX20-[place] Code Onset Dates Condition Status SNOMED Code Problem Lumbar disc disease M51.9 Active 81902776 Problem Neurogenic bladder N31.9 Active 277302988 Problem Polyneuropathy associated with underlying disease G63 Active 275957372 Problem Anxiety F41.9 Active 00249697 Problem Generalized anxiety disorder F41.1 Active 74234516 Problem Insomnia, unspecified type G47.00 Active 869072104 Problem Type 2 diabetes mellitus without complication, without long-term current use of insulin E11.9 Active 696966831 Problem Gastroesophageal reflux disease without esophagitis K21.9 Active 390922248 Problem Other chronic pain G89.29 Active 20032170 Problem Psychosis, unspecified psychosis type F29 Active 06458793 Problem Fibromyalgia M79.7 Active 962897956 Problem Nicotine abuse Z72.0 Active 95498387 Problem Irritable bowel syndrome with diarrhea K58.0 Active 628871525 Problem Chronic pain disorder G89.4 Active 985526449 Problem Meniere disease, unspecified laterality H81.09 Active 11237627 ALLERGIES No Information ENCOUNTERS Encounter Location Date Diagnosis [place] [id number] [address] 14 Dec, 2017 [facility]9 [facility] [address] [id number] 13 Dec, 2017 Other acute back pain M54.9 and Lumbar disc disease M51.9 [facility] [id number] [address] Nov, Lumbar disc disease M51.9 [facility] [address] [address] Nov, [facility] [id number] [place] [address] 68782- 7001 Oct, Lumbar disc disease M51.9 [facility] [id number] [place] [address] 45554- 0607 Oct, [facility] [address] [id number] Oct, Polyneuropathy associated with underlying disease G63 ; Type 2 diabetes mellitus without complication, without long-term current use of insulin E11.9 and Family history of CVA Z82.3 [place] [id number] [place] [address] 03273- 7711 Sep, Lumbar disc disease M51.9 [place] [id number] [place] [address] 70061- 4978 Sep, [place] [id number] [place] [address] 13687- 1180 August, Lumbar disc disease M51.9 [place] [id number] [place] [address] 56064- 9895 August, [facility] [address] [id number] August, Meniere''s disease, unspecified laterality H81.09 and Type 2 diabetes mellitus without complication, without long-term current use of insulin E11.9 [place] [id number] [place] [address] 79811- 0709 August, BMI 40.0-44.9, adult Z68.41 and Anxiety F41.9 [place] [id number] [place] [address] 08976- 1532 Jul, Lumbar disc disease M51.9 [place] [id number] [place] [address] 02881- 9654 Jul, Generalized anxiety disorder F41.1 [place] [address] [place] [address] Jul, [facility] [id number] [place] [address] 46704- 7474 Jul, Lumbar disc disease M51.9 [facility] [address] [id number] Jun, Urinary tract infection without hematuria, site unspecified N39.0 ; Bilateral impacted cerumen H61.23 ; Loose stools R19.5 and Type 2 diabetes mellitus without complication, without long-term current use of insulin E11.9 [place] [address] [place] [address] 34403- 3779 Jun, [place] [id number] [place] [address] 06991- 8208 Jun, Fibromyalgia M79.7 [place] [id number] [place] [address] 97491- 0933 Jun, Breast mass, right N63.10 [place] [address] [place] [address] 61571- 4911 Jun, Breast mass, right N63.10 [facility] [address] [id number] Jun, Breast mass, right N63.10 ; Type 2 diabetes mellitus without complication , without long-term current use of insulin E11.9 and Fibromyalgia M79.7 [place] [address] [place] [address] 32858- 1049 Jun, Gastroesophageal reflux disease without esophagitis K21.9 [facility] [id number] [place] [address] [id number] Jun, Lumbar disc disease M51.9 [facility] [address] [place] [address] 18020- 3818 May, [facility] [id number] [place] [address] [id number] May, [facility] [id number] [place] [id number] May, [facility] [id number] [id number] May, Lumbar disc disease M51.9 [facility] [id number] [address] Apr, [facility] [address] [id number] Apr, Viral upper respiratory tract infection J06.9 and Impacted cerumen, bilateral H61.23 [facility] [address] [id number] [id number] Apr, [facility] [id number], [place] [address] 2546 Apr, [facility] [id number] [address] Apr, Lumbar disc disease M51.[address] [id number] Mar, Lumbar disc disease M51.9 and Fibromyalgia M79.7 [facility] [id number], [place] [address] 09[address] Mar, [facility] [id number][place] [id number] Feb, [facility] [id number] [address] Jan, Type 2 diabetes mellitus without complication, without long- term current use of insulin E11.9 [facility] [id number] Jan, Type 2 diabetes mellitus without complication, without long-term current use of insulin E11.9 ; Fibromyalgia M79.7 and Lumbar disc disease M51.9 [facility] [address] [id number] [address] 16 Jan, 2017 [facility] [address] [id number][place] [id number] Jan, [facility] [address] [facility] [id number], [place] [address] Dec, [facility] [address] [id number][place] [address] Dec, [facility] [address] [id number][place] [id number] Dec, [facility] [id number] [address] Nov, Pre-procedure lab exam Z01.812 [facility] [address] [facility] [id number] [address] Nov, Ventral hernia without obstruction or gangrene K43.9 [facility] [address] [id number] [address] Nov, [facility] [id number][place] [id number] Nov, [facility] [place] [address] [id number] Nov, Ventral hernia without obstruction or gangrene K43.9 [facility] [address] [address] Nov, Fibromyalgia M79.7 and Polyneuropathy associated with underlying disease G63 [facility] [address] [facility] [id number], [place] [address] 1405 Oct, [facility] [address] [id number] [id number] Oct, [facility] [address] [id number] [id number] Oct, [facility] [address] [id number][place] [address] Oct, [facility] [address] [id number], [place] [address] Sep, [facility] [address] [facility] [id number], [place] [address] 3[address] Sep, [facility] [place] [facility] [address] [id number] [place] [address]16 Sep, [facility] [address] [id number] [place] [address] August, [facility] [address] [place] [id number] August, Right medial knee pain M25.561 [facility] [place] [facility] [address] [id number] [place] [address] August, [facility] [place] [facility] [address] [id number] [place] [address]- [address]46 August, [facility] [place] [facility] [address] [id number] [place] [address]- 2546 August, [facility] [place] [facility] [address] [id number] [place] [id number] August, [facility] [place] [facility] [address] [id number] [place] [address]- 2546 August, [facility] [place] [facility] [address] [id number] [place] [id number] August, [facility] [place] [facility] [address] [id number] [place] [id number] Jul, [facility] [place] [facility] [address] [id number] [place] [address]- 2546 Jul, [facility] [place] [facility] [address] [id number][place] [id number] Jul, [facility] [place] [facility] [address] [id number] [place] [address]- 2546 Jun, [facility] [place] [facility] [address] [id number] [place] [address]- 2546 Jun, [facility] [place] [facility] [address] [id number] [place] [address]- 2546 May, [facility] [place] [facility] [address] [id number] [place] [address] May, [facility] [address]005[address]100[place], [place] [address]- 2959 May, [facility] [address] [place] [address] 61575- 9687 May, [facility] [id number] [place] [address] 97528- 1990 Apr, [facility] [place] [address] [id number] Apr, Upper respiratory infection with cough and congestion J06.9 [facility] [id number] [place] [address] [id number] Apr, [facility] [id number] [place] [address] 70440- 7389 Apr, [facility] [id number] [place] [address] 65857- 0799 Mar, [facility] [id number] [place] [address] 04591- 6181 Mar, [facility] [id number] [place] [address] 58469- 5065 Mar, Other chronic pain G89.29 [facility] [id number] [place] [address] 74162- 2714 Mar, [facility] [address] [place] [address] 12702- 0399 Mar, [facility] [address], [place] [address]- 0[address] Feb, [facility] [address] [place] [address] 72255- 7460 Feb, [facility] [place] [address] [id number] Feb, Insomnia, unspecified type G47.00 and Swelling of face R22.0 [facility] [address] [place] [address] 71378- 2866 Feb, [facility] [id number] [place] [address] 07234- 5077 Feb, [facility] [id number] [place] [address] 77029- 9649 Feb, [facility] [id number] [place] [address] 717138- 2911 Feb, [facility] [id number] [place] [address] 41178- 8253 Jan, [facility] [id number] [place] [address] 83517- 2770 Jan, [facility] [id number] [place] [address] 05071- 6184 Jan, Neurogenic bladder N31.9 [facility] [id number] [place] [address] 76285- 9230 Jan, [facility] [id number] [place] [address] 13268- 0912 Jan, [facility] [id number] [place] [address] 64925- 1532 Jan, [facility] [id number] [place] [address] 86854- 8254 Jan, [facility] [id number] [place] [address] 52925- 4554 Jan, Screening for breast cancer Z12.39 [facility] [id number] [place] [address] 31256- 3944 Jan, [facility] [id number] [place] [address] 31033893- 6649 Dec, Type 2 diabetes mellitus without complication, without long- term current use of insulin E11.9 ; Lumbar disc disease M51.9 ; Polyneuropathy associated with underlying disease G63 and Neurogenic bladder N31.9 [facility] [id number] [place] [address] 59016- 4639 16 Dec, 2015 [facility] [address], [place] [address] 9[address] 14 Dec, 2015 Other chronic pain G89.29 [facility] [address], [place] [address]- 0008 12 Dec, 2015 [facility] [id number] [place] [address] 42656- 3634 Nov, [facility] [id number] [place] [address] 49586- 1266 Nov, [facility] [id number] [place] [address] 55475- 0423 Nov, Type 2 diabetes mellitus without complication, [...] anemia, unspecified iron deficiency anemia type D50.9 [facility] [address], [place] [address]- 6316 Nov, [facility] [address], [place] [address]- 2465 Nov, [facility] [address], [place] [address]- 9771 Nov, [facility] [address], [place] [address]- 3562 Nov, [facility] [address], [place] [address]- 6731 Nov, [facility] [address], [place] [address]- 2426 Nov, [facility] [id number] [place] [address] 46560- 3653 Nov, [facility] [address] [facility] [id number] [place] [address]- 9336 Jul, [facility] [address] [facility] [id number], [place] [address]- 2546 Jul, [facility] [address] [facility] [id number] [address]- 2546 August, [facility] [address] [facility] [id number], [place] [address]- 2546 Jun, [facility] [address] [facility] [id number], [place] [address]- 2546 Oct, IMMUNIZATIONS No Known Immunizations SOCIAL HISTORY Never Assessed REASON FOR VISIT Controlled Med Refill PLAN OF CARE VITAL SIGNS MEDICATIONS Medication Instructions Dosage Frequency Start Date End Date Duration Status Hydrocodone-Acetaminophen 7.5-325 MG Orally 2 times a day 1 tablet 12h 15 Dec, 2017 28 days Active RESULTS No Results PROCEDURES [...]
--- OUTSIDE RECORDS SUMMARY | 2018-01-22 14:11 | XMS REPORT ---
Author Author LAURIE MAHAJAN Organization [facility] Address [address] [place] [address] Care Team Providers Care Vp Organizational Development Name Role Phone LAURIE MAHAJAN Unavailable PROBLEMS Type Condition ICD9-CM Code YJB62-UT Code Onset Dates Condition Status SNOMED Code Problem Lumbar disc disease M51.9 Active 69322900 Problem Neurogenic bladder N31.9 Active 825783599 Problem Polyneuropathy associated with underlying disease G63 Active 366076474 Problem Anxiety F41.9 Active 41824441 Problem Generalized anxiety disorder F41.1 Active 58494286 Problem Insomnia, unspecified type G47.00 Active 883208462 Problem Type 2 diabetes mellitus without complication, without long-term current use of insulin E11.9 Active 356958339 Problem Gastroesophageal reflux disease without esophagitis K21.9 Active 535747212 Problem Other chronic pain G89.29 Active 83897349 Problem Psychosis, unspecified psychosis type F29 Active 29765899 Problem Fibromyalgia M79.7 Active 203012647 Problem Nicotine abuse Z72.0 Active 26667296 Problem Irritable bowel syndrome with diarrhea K58.0 Active 404279329 Problem Chronic pain disorder G89.4 Active 673604365 Problem Meniere disease, unspecified laterality H81.09 Active 12493702 ALLERGIES No Information ENCOUNTERS Encounter Location Date Diagnosis [place] [id number] [address] 14 Dec, 2017 [facility] [address] [place] [id number] 13 Dec, 2017 Other acute back pain M54.9 and Lumbar disc disease M51.9 [facility] [id number] [address] Nov, Lumbar disc disease M51.9 [facility] [address] [address] Nov, [facility] [id number] [place] [address] 05389- 7404 Oct, Lumbar disc disease M51.9 [facility] [id number] [place] [address] 39618- 1316 Oct, [facility] [address] [id number] Oct, Polyneuropathy associated with underlying disease G63 ; Type 2 diabetes mellitus without complication, without long-term current use of insulin E11.9 and Family history of CVA Z82.3 [place] [id number] [place] [address] 04351- 9892 Sep, Lumbar disc disease M51.9 [place] [id number] [place] [address] 10519- 0005 Sep, [place] [id number] [place] [address] 40127- 7649 August, Lumbar disc disease M51.9 [place] [id number] [place] [address] 14966- 6635 August, [facility] [address] [place] [id number] August, Meniere''s disease, unspecified laterality H81.09 and Type 2 diabetes mellitus without complication, without long-term current use of insulin E11.9 [place] [id number] [place] [address] 93825- 8662 August, BMI 40.0-44.9, adult Z68.41 and Anxiety F41.9 [place] [id number] [place] [address] 13544- 5051 Jul, Lumbar disc disease M51.9 [place] [id number] [place] [address] 90642- 6361 Jul, Generalized anxiety disorder F41.1 [place] [address] [place] [address] Jul, [facility] [id number] [place] [address] 49992- 0972 Jul, Lumbar disc disease M51.9 [facility] [address] [place] [id number] Jun, Urinary tract infection without hematuria, site unspecified N39.0 ; Bilateral impacted cerumen H61.23 ; Loose stools R19.5 and Type 2 diabetes mellitus without complication, without long-term current use of insulin E11.9 [place] [id number] [place] [address] 25591- 3900 Jun, [place] [id number] [place] [address] 84203- 0316 Jun, Fibromyalgia M79.7 [place] [id number] [place] [address] 48255- 6000 Jun, Breast mass, right N63.10 [place] [id number] [place] [address] 13410- 2635 Jun, Breast mass, right N63.10 [facility] [address] [place] [id number] Jun, Breast mass, right N63.10 ; Type 2 diabetes mellitus without complication , without long-term current use of insulin E11.9 and Fibromyalgia M79.7 [place] [id number] [place] [address] 02114- 8538 Jun, Gastroesophageal reflux disease without esophagitis K21.9 [facility] [id number] [place] [id number] Jun, Lumbar disc disease M51.9 [facility] [id number] [place] [address] 33205- 4897 May, [facility] [id number] [place] [address] [id number] May, [facility] [id number] [place] [id number] May, [facility] [id number] [id number] May, Lumbar disc disease M51.9 [facility] [id number] [id number] Apr, [facility] [address] [id number] Apr, Viral upper respiratory tract infection J06.9 and Impacted cerumen, bilateral H61.23 [facility] [address] [id number] [id number] Apr, [facility] [id number] [address] Apr, [facility] [id number] [id number] Apr, Lumbar disc disease M51.[address] [id number] Mar, Lumbar disc disease M51.9 and Fibromyalgia M79.7 [facility] [id number] [address] Mar, [facility] [id number] [id number] Feb, [facility] [id number] [address] Jan, Type 2 diabetes mellitus without complication, without long- term current use of insulin E11.[address] [facility] [id number] Jan, Type 2 diabetes mellitus without complication, without long-term current use of insulin E11.9 ; Fibromyalgia M79.7 and Lumbar disc disease M51.9 [facility] [address] [id number] [id number] 16 Jan, 2017 [facility] [address] [id number] [id number] Jan, [facility] [address] [facility] [id number] [address] Dec, [facility] [address] [id number] [id number] Dec, [facility] [address] [id number] [id number] Dec, [facility] [id number] [id number] Nov, Pre-procedure lab exam Z01.812 [facility] [address] [facility] [id number] [place] [address] Nov, Ventral hernia without obstruction or gangrene K43.9 [facility] [address] [id number] [id number] Nov, [facility] [id number] [id number] Nov, [facility] [place] [address] [id number] Nov, Ventral hernia without obstruction or gangrene K43.9 [facility] [address] [address] Nov, Fibromyalgia M79.7 and Polyneuropathy associated with underlying disease G63 [facility] [address] [facility] [id number] [address] Oct, [facility] [address] [id number] [id number] Oct, [facility] [address] [id number] [place] [id number] Oct, [facility] [address] [id number] [place] [id number] Oct, [facility] [address] [id number] [id number] Sep, [facility] [address] [facility] [id number] [place] [address] Sep, [facility] [place] [facility] [address] [id number] [place] [address] Sep, [facility] [address] [id number] [place] [address] August, [facility] [address] [place] [id number] August, Right medial knee pain M25.561 [facility] [place] [facility] [address] [id number] [place] [address] August, [facility] [place] [facility] [address] [id number] [place] [address] 2546 August, [facility] [place] [facility] [address] [id number] [place] [address]- 2546 August, [facility] [place] [facility] [address] [id number] [place] [id number] August, [facility] [place] [facility] [address] [id number] [place] [address]- 2546 August, [facility] [place] [facility] [address] [id number] [place] [id number] August, [facility] [place] [facility] [address] [id number] [place] [id number] Jul, [facility] [place] [facility] [address] [id number] [place] [address]- 2546 Jul, [facility] [place] [facility] [address] [id number] [place] [id number] Jul, [facility] [place] [facility] [address] [id number] [place] [address]- 2546 Jun, [facility] [place] [facility] [address] [id number] [place] [address]- 2546 Jun, [facility] [place] [facility] [address] [id number] [place] [address]- 2546 May, [facility] [place] [facility] [address] [id number] [place] [address] May, [facility] [address] [address]- 9293 May, [facility] [id number] [place] [address] 63115- 6700 May, [facility] [id number] [place] [address] 28988- 3796 Apr, [facility] [place] [address] [place] [id number] Apr, Upper respiratory infection with cough and congestion J06.9 [facility] [id number] [place] [address] [id number] Apr, [facility] [id number] [place] [address] 78100- 0561 Apr, [facility] [id number] [place] [address] 80099- 7726 Mar, [facility] [id number] [place] [address] 82508- 8794 Mar, [facility] [id number] [place] [address] 08743- 1732 Mar, Other chronic pain G89.29 [facility] [id number] [place] [address] 87200- 7037 Mar, [facility] [id number] [place] [address] 57569- 6835 Mar, [facility] [address] [address]- 7754 Feb, [facility] [id number] [place] [address] 14353- 6668 Feb, [facility] [place] [address] [place] [id number] Feb, Insomnia, unspecified type G47.00 and Swelling of face R22.0 [facility] [id number] [place] [address] 44474- 7038 Feb, [facility] [id number] [place] [address] 44625- 8203 Feb, [facility] [id number] [place] [address] 65298- 4931 Feb, [facility] [id number] [place] [address] 140970- 3538 Feb, [facility] [id number] [place] [address] 23625- 8641 Jan, [facility] [id number] [place] [address] 98512- 1705 Jan, [facility] [id number] [place] [address] 54927- 4382 Jan, Neurogenic bladder N31.9 [facility] [id number] [place] [address] 02270- 5991 Jan, [facility] [id number] [place] [address] 59911- 7728 Jan, [facility] [id number] [place] [address] 08799- 7960 Jan, [facility] [id number] [place] [address] 32043- 4816 Jan, [facility] [id number] [place] [address] 71513- 6951 Jan, Screening for breast cancer Z12.39 [facility] [id number] [place] [address] 36494- 6162 Jan, [facility] [id number] [place] [address] [id number]- 5204 Dec, Type 2 diabetes mellitus without complication, without long- term current use of insulin E11.9 ; Lumbar disc disease M51.9 ; Polyneuropathy associated with underlying disease G63 and Neurogenic bladder N31.9 [facility] [id number] [place] [address] 86293- 6309 16 Dec, 2015 [facility] [address] [address]- 9624 14 Dec, 2015 Other chronic pain G89.29 [facility] [address] [address]- 1609 12 Dec, 2015 [facility] [id number] [place] [address] 66046- 0043 Nov, [facility] [id number] [place] [address] 35425- 4791 Nov, [facility] [id number] [place] [address] 64581- 7152 Nov, Type 2 diabetes mellitus without complication, [...] anemia, unspecified iron deficiency anemia type D50.9 [facility] [address] [address]- 0607 Nov, [facility] [address] [address]- 3189 Nov, [facility] [address] [address]- 1196 Nov, [facility] [address] [address]- 6152 Nov, [facility] [address] [address]- 9718 Nov, [facility] [address] [address]- 6674 Nov, [facility] [id number] [place] [address] 27280- 6641 Nov, [facility] [address] [facility] [id number] [address]- 3391 Jul, [facility] [address] [facility] [id number] [address]- 1866 Jul, [facility] [address] [facility] [id number] [address]- 0466 August, [facility] [address] [facility] [id number] [place] [address]- 3166 Jun, [facility] [address] [facility] [id number] [address]- 9691 Oct, IMMUNIZATIONS No Known Immunizations SOCIAL HISTORY Never Assessed REASON FOR VISIT Request for xray and MRI PLAN OF CARE Activity Details Follow Up prn Reason: VITAL SIGNS MEDICATIONS Medication Instructions Dosage Frequency Start Date End Date Duration Status Atenolol 25 MG Orally Once a day 1 tablet 24h Active Hydrocodone-Acetaminophen 7.5-325 MG Orally 2 times a day 1 tablet 12h Nov, 28 days Active Milk of Magnesia Concentrate 2400 MG/10ML Orally daily 30ml as needed 24h Active Meclizine HCl 12.5 MG Orally every 6 hrs as needed for dizziness 1 tablet as needed August, Active Duloxetine HCl 30 MG Orally Once a day 3 capsules 24h Active Furosemide 20 mg Orally Once a day 1 tablet 24h Active Klor-Con M20 20 meq Orally 2 times a day 1 tablet with food 12h Active Metformin HCl 1000 MG Orally 2 times a day 1 tablet with a meal 12h Active Dicyclomine HCl 20 mg Orally 3 times a day 1 tablet 8h Active Hydrochlorothiazide 12.5 MG Orally 2 times a day 1 capsule 12h Active Victoza 18 MG/3ML Subcutaneous Once a day inject 1.8MG 24h 31 Active Nystatin - Active Zofran 4 MG Orally every 8 hrs as needed 1 tablet Jul, Active Chely-Tussin 100 MG/5ML Orally every 4 hrs 10 ml as needed 4h Active Albuterol Sulfate (2.5 MG/3ML) 0.083% Inhalation every 4 hrs 3 ml as needed 4h Active Glimepiride 4 MG Orally Once a day 1 tablet with breakfast or the first main meal of the day 24h Active Acetaminophen 325 MG Orally every 4 hrs headache 2 capsule as needed Active Polysaccharide Iron Complex 150 MG Orally Twice a day 1 capsule 12h Active Ziprasidone HCl 20 MG TAKE 2 CAPSULES BY MOUTH EVERY MORNING AND TAKE 1 CAPSULE BY MOUTH EVERY EVENING 30 Active Blood Glucose Test Strip - In Vitro 3 times a day 8h Active Pantoprazole Sodium 20 mg Orally Once a day 1 tablet 24h Active Ibuprofen 600 MG Orally Three times a day 1 tablet with food or milk 8h Dec, Dec, 7 days Active Adult Aspirin EC Low Strength 81 MG Orally Once a day 1 tablet 24h Oct, Oct, 90 days Active Sodium Phosphate enema Active RESULTS No Results PROCEDURES Procedure Date Ordered Result Body Site Minor complication (15 mins) Dec 16, 2017 INSTRUCTIONS MEDICATIONS ADMINISTERED No Known Medications MEDICAL [...]
--- OUTSIDE RECORDS SUMMARY | 2018-01-22 14:12 | XMS REPORT ---
Author Author LAURIE MAHAJAN Organization [facility] Address [address] [place] [address] Care Team Providers Care Agricultural Adviser Name Role Phone LAURIE MAHAJAN Unavailable PROBLEMS Type Condition ICD9-CM Code NIO63-HC Code Onset Dates Condition Status SNOMED Code Problem Lumbar disc disease M51.9 Active 08350018 Problem Neurogenic bladder N31.9 Active 845830039 Problem Polyneuropathy associated with underlying disease G63 Active 856850778 Problem Anxiety F41.9 Active 13886210 Problem Generalized anxiety disorder F41.1 Active 99780336 Problem Insomnia, unspecified type G47.00 Active 066623974 Problem Type 2 diabetes mellitus without complication, without long-term current use of insulin E11.9 Active 534274538 Problem Gastroesophageal reflux disease without esophagitis K21.9 Active 987185662 Problem Other chronic pain G89.29 Active 62513698 Problem Psychosis, unspecified psychosis type F29 Active 90235661 Problem Fibromyalgia M79.7 Active 880159524 Problem Nicotine abuse Z72.0 Active 73542393 Problem Irritable bowel syndrome with diarrhea K58.0 Active 730137894 Problem Chronic pain disorder G89.4 Active 499755067 Problem Meniere disease, unspecified laterality H81.09 Active 18533616 ALLERGIES No Information ENCOUNTERS Encounter Location Date Diagnosis [place] [id number] [address] 14 Dec, 2017 [facility]51.9 [facility] [address] [place] [id number] 13 Dec, 2017 Other acute back pain M54.9 and Lumbar disc disease M51.9 [facility] [id number] [address] Nov, Lumbar disc disease M51.9 [facility] [address], [place] [address] Nov, [facility] [id number] [place] [address] 24000- 7163 Oct, Lumbar disc disease M51.9 [facility] [id number] [place] [address] 28217- 0771 Oct, [facility] [address] [place] [id number] Oct, Polyneuropathy associated with underlying disease G63 ; Type 2 diabetes mellitus without complication, without long-term current use of insulin E11.9 and Family history of CVA Z82.3 [place] [id number] [place] [address] 77055- 6726 Sep, Lumbar disc disease M51.9 [place] [id number] [place] [address] 67291- 9081 Sep, [place] [id number] [place] [address] 70919- 7930 August, Lumbar disc disease M51.9 [place] [id number] [place] [address] 83587- 8314 August, [facility] [address] [place] [id number] August, Meniere''s disease, unspecified laterality H81.09 and Type 2 diabetes mellitus without complication, without long-term current use of insulin E11.9 [place] [id number] [place] [address] 59182- 5680 August, BMI 40.0-44.9, adult Z68.41 and Anxiety F41.9 [place] [id number] [place] [address] 31153- 8854 Jul, Lumbar disc disease M51.9 [place] [id number] [place] [address] 81492- 4491 Jul, Generalized anxiety disorder F41.1 [place] [address] [place] [address] Jul, [facility] [id number] [place] [address] 54207- 0935 Jul, Lumbar disc disease M51.9 [facility] [address] [place] [id number] Jun, Urinary tract infection without hematuria, site unspecified N39.0 ; Bilateral impacted cerumen H61.23 ; Loose stools R19.5 and Type 2 diabetes mellitus without complication, without long-term current use of insulin E11.9 [place] [id number] [place] [address] 27944- 1334 Jun, [place] [id number] [place] [address] 50472- 6682 Jun, Fibromyalgia M79.7 [place] [id number] [place] [address] 30137- 1723 Jun, Breast mass, right N63.10 [place] [id number] [place] [address] 61674- 2454 Jun, Breast mass, right N63.10 [facility] [address] [place] [id number] Jun, Breast mass, right N63.10 ; Type 2 diabetes mellitus without complication , without long-term current use of insulin E11.9 and Fibromyalgia M79.7 [place] [id number] [place] [address] 48139- 4865 Jun, Gastroesophageal reflux disease without esophagitis K21.9 [facility] [place] [id number] [place] [address] [id number] Jun, Lumbar disc disease M51.9 [facility] [id number] [place] [address] 27189- 9369 May, [facility] [place] [id number] [place] [address] [id number] May, [facility] [place] [id number] [place] [address] [id number] May, [facility] [id number] [address] May, Lumbar disc disease M51.9 [facility] [id number] [address] Apr, [facility] [address] [id number] Apr, Viral upper respiratory tract infection J06.9 and Impacted cerumen, bilateral H61.23 [facility] [address] [id number] [address] Apr, [facility] [id number], [place] [address] 2546 Apr, [facility] [id number] [address] Apr, Lumbar disc disease M51.[address] [id number] Mar, Lumbar disc disease M51.9 and Fibromyalgia M79.7 [facility] [id number], [place] [address] 9[address] Mar, [facility] [id number], [place] [address] Feb, [facility] [id number] [address] Jan, Type 2 diabetes mellitus without complication, without long- term current use of insulin E11.9 [facility] [id number] Jan, Type 2 diabetes mellitus without complication, without long-term current use of insulin E11.9 ; Fibromyalgia M79.7 and Lumbar disc disease M51.9 [facility] [address] [id number] [id number] 16 Jan, 2017 [facility] [address] [id number] [id number] Jan, [facility] [address] [facility] [id number], [place] [address] Dec, [facility] [place] [facility] [address] [id number][place] [id number] Dec, [facility] [place] [facility] [address] [id number], [place] [address] Dec, [facility] [place] [facility] [id number] [id number] Nov, Pre-procedure lab exam Z01.812 [facility] [address] [facility] [id number], [place] [address] Nov, Ventral hernia without obstruction or gangrene K43.9 [facility] [address] [id number] [id number] Nov, [facility] [place] [facility] [id number] [address] Nov, [facility] [address] [place] [address] Nov, Ventral hernia without obstruction or gangrene K43.9 [facility] [address] [id number] Nov, Fibromyalgia M79.7 and Polyneuropathy associated with underlying disease G63 [facility] [address] [facility] [id number], [place] [address] 8[address] Oct, [facility] [address] [id number], [place] [id number] Oct, [facility] [address] [id number][place] [id number] Oct, [facility] [address] [id number], [place] [id number] Oct, [facility] [address] [id number][place] [id number] Sep, [facility] [address] [facility] [id number], [place] [address] 8558 Sep, [facility] [place] [facility] [address] [id number] [place] [address]- 7086 Sep, [facility] [address] [id number] [place] [address] August, [facility] [address] [place] [id number] August, Right medial knee pain M25.561 [facility] [place] [facility] [address] [id number] [place] [address]- 4[address] August, [facility] [place] [facility] [address] [id number] [place] [address]- 2546 August, [facility] [place] [facility] [address] [id number] [place] [address]- 2546 August, [facility] [place] [facility] [address] [id number] [place] [id number] August, [facility] [place] [facility] [address] [id number] [place] [address]- 2546 August, [facility] [place] [facility] [address] [id number] [place] [address] August, [facility] [place] [facility] [address] [id number] [place] [id number] Jul, [facility] [place] [facility] [address] [id number] [place] [address]- 2546 Jul, [facility] [place] [facility] [address] [id number], [place] [address] Jul, [facility] [place] [facility] [address] [id number] [place] [address]- 2546 Jun, [facility] [place] [facility] [address] [id number] [place] [address]- 2546 Jun, [facility] [place] [facility] [address] [id number] [place] [address]- 2546 May, [facility] [place] [facility] [address] [id number] [place]60 May, [facility] [address], [place] [address] May, [facility] [id number] [place] [address] 25235- 3217 May, [facility] [id number] [place] [address] 93082- 1334 Apr, [facility] [address] [place] [id number] Apr, Upper respiratory infection with cough and congestion J06.9 [facility] [place] [id number] [place] [id number] Apr, [facility] [id number] [place] [address] 29475- 8476 Apr, [facility] [id number] [place] [address] 67829- 3752 Mar, [facility] [id number] [place] [address] 03503- 6601 Mar, [facility] [id number] [place] [address] 84683- 9106 Mar, Other chronic pain G89.29 [facility] [id number] [place] [address] 21219- 9998 Mar, [facility] [id number] [place] [address] 58824- 0123 Mar, [facility] [address], [place] [address]- 8371 Feb, [facility] [id number] [place] [address] 66441- 1847 Feb, [facility] [address] [place] [address] Feb, Insomnia, unspecified type G47.00 and Swelling of face R22.0 [facility] [id number] [place] [address] 80526- 6172 Feb, [facility] [id number] [place] [address] 77200- 1327 Feb, [facility] [id number] [place] [address] 73948- 2610 Feb, [facility] [id number] [place] [address] 917532- 8910 Feb, [facility] [id number] [place] [address] 23235- 2916 Jan, [facility] [id number] [place] [address] 15944- 6809 Jan, [facility] [id number] [place] [address] 93865- 1268 Jan, Neurogenic bladder N31.9 [facility] [id number] [place] [address] 41368- 7278 Jan, [facility] [id number] [place] [address] 13850- 0807 Jan, [facility] [id number] [place] [address] 09402- 8116 Jan, [facility] [id number] [place] [address] 32538- 3440 Jan, [facility] [id number] [place] [address] 22498- 7142 Jan, Screening for breast cancer Z12.39 [facility] [id number] [place] [address] 86186- 8698 Jan, [facility] [id number] [place] [address] [id number]- 0269 Dec, Type 2 diabetes mellitus without complication, without long- term current use of insulin E11.9 ; Lumbar disc disease M51.9 ; Polyneuropathy associated with underlying disease G63 and Neurogenic bladder N31.9 [facility] [id number] [place] [address] 00792- 8332 16 Dec, 2015 [facility] [address], [place] [address]- 7817 14 Dec, 2015 Other chronic pain G89.29 [facility] [address], [place] [address]- 1824 12 Dec, 2015 [facility] [id number] [place] [address] 14442- 3485 Nov, [facility] [id number] [place] [address] 69193- 2180 Nov, [facility] [id number] [place] [address] 11460- 0835 Nov, Type 2 diabetes mellitus without complication, [...] anemia, unspecified iron deficiency anemia type D50.9 [facility] [address], [place] [address] Nov, [facility] [address], [place] [address]- 8446 Nov, [facility] [address], [place] [address]- 5005 Nov, [facility] [address], [place] [address]- 8478 Nov, [facility] [address], [place] [address]- 6000 Nov, [facility] [address], [place] [address]- 4899 Nov, [facility] [id number] [place] [address] 75773- 7514 Nov, [facility] [address] [facility] [id number], [place] [address]- 0376 Jul, [facility] [address] [facility] [id number], [place] [address]- 9146 Jul, [facility] [address] [facility] [id number], [place] [address]- 8816 August, [facility] [address] [facility] [id number], [place] [address]- 0266 Jun, [facility] [address] [facility] [id number][place] [address]- 4996 Oct, IMMUNIZATIONS No Known Immunizations SOCIAL HISTORY Never Assessed REASON FOR VISIT ER follow up PLAN OF CARE Activity Details Follow Up prn Reason: VITAL SIGNS MEDICATIONS Medication Instructions Dosage Frequency Start Date End Date Duration Status Ziprasidone HCl 20 MG TAKE 2 CAPSULES BY MOUTH EVERY MORNING AND TAKE 1 CAPSULE BY MOUTH EVERY EVENING 30 Active Klor-Con M20 20 meq Orally 2 times a day 1 tablet with food 12h Active Keflex 500 mg Orally every 12 hrs 1 capsule 12h Jun, Jun, 07 days Active Omeprazole-Sodium Bicarbonate 20-1100 MG Orally Once a day 1 capsule on an empty stomach 24h Jun, 30 day(s) Active Hydrocodone-Acetaminophen 7.5-325 MG Orally 2 times a day 1 tablet 12h Jun, 28 days Active Meclizine HCl 12.5 MG Orally every 6 hrs 2 tablets as needed 6h August, Active Milk of Magnesia Concentrate 2400 MG/10ML Orally daily 30ml as needed 24h Active Duloxetine HCl 30 MG Orally Once a day 3 tabs 24h Active Polysaccharide Iron Complex 150 MG Orally Twice a day 1 capsule 12h Active Nystatin 303968 UNIT/GM Externally Twice a day 1 application to affected area 12h Nov, Active Metformin HCl 500 mg Orally Twice a day 2 tablet with meals 12h Active Dicyclomine HCl 20 MG TAKE 1 TABLET BY MOUTH THREE TIMES DAILY 30 Active Ziprasidone HCl 40 mg Orally Twice a day 2 tabs in the morning and 2 tabs in the morning 12h Active Atenolol 25 MG Orally Once a day 1 tablet 24h Active Hydrochlorothiazide 12.5 MG TAKE 1 CAPSULE BY MOUTH TWICE DAILY 30 Active Victoza 18 MG/3ML Subcutaneous Once a day inject 1.8MG 24h 31 Active Glimepiride 4 MG Orally Once a day 1 tablet with breakfast or the first main meal of the day 24h Active Chely-Tussin 100 MG/5ML Orally every 4 hrs 10 ml as needed 4h Active Albuterol Sulfate (2.5 MG/3ML) 0.083% Inhalation every 4 hrs 3 ml as needed 4h Active Furosemide 20 mg Orally Once a day 1 tablet 24h 30 Active RESULTS No Results PROCEDURES Procedure Date Ordered Result Body Site Minor complication (15 mins) July 01, 2017 INSTRUCTIONS MEDICATIONS ADMINISTERED No Known Medications [...]
--- OUTSIDE RECORDS SUMMARY | 2018-01-22 14:12 | XMS REPORT ---
Author Author LAURIE MAHAJAN Organization [facility] Address [address] [place] [address] Care Team Providers Care Rub[employer] Sh[employer] Repairer Name Role Phone LAURIE MAHAJAN Unavailable PROBLEMS Type Condition ICD9-CM Code [id number] Code Onset Dates Condition Status SNOMED Code Problem Lumbar disc disease M51.9 Active 60078138 Problem Neurogenic bladder N31.9 Active 704420695 Problem Polyneuropathy associated with underlying disease G63 Active 788430195 Problem Anxiety F41.9 Active 78024766 Problem Generalized anxiety disorder F41.1 Active 93318406 Problem Insomnia, unspecified type G47.00 Active 477579952 Problem Type 2 diabetes mellitus without complication, without long-term current use of insulin E11.9 Active 436397231 Problem Gastroesophageal reflux disease without esophagitis K21.9 Active 830660248 Problem Other chronic pain G89.29 Active 98547429 Problem Psychosis, unspecified psychosis type F29 Active 34737963 Problem Fibromyalgia M79.7 Active 372202321 Problem Nicotine abuse Z72.0 Active 94650497 Problem Irritable bowel syndrome with diarrhea K58.0 Active 679793569 Problem Chronic pain disorder G89.4 Active 106287612 Problem Meniere disease, unspecified laterality H81.09 Active 58290887 ALLERGIES No Information ENCOUNTERS Encounter Location Date Diagnosis [place] [id number] [address] 14 Dec, 2017 [facility]51.9 [facility] [address] [id number] 13 Dec, 2017 Other acute back pain M54.9 and Lumbar disc disease M51.9 [facility] [id number] [address] Nov, Lumbar disc disease M51.9 [facility] [address] [address] Nov, [facility] [id number] [place] [address] 94079- 3662 Oct, Lumbar disc disease M51.9 [facility] [id number] [place] [address] 34938- 8912 Oct, [facility] [address] [id number] Oct, Polyneuropathy associated with underlying disease G63 ; Type 2 diabetes mellitus without complication, without long-term current use of insulin E11.9 and Family history of CVA Z82.3 [place] [id number] [place] [address] 40052- 1087 Sep, Lumbar disc disease M51.9 [place] [id number] [place] [address] 59002- 9244 Sep, [place] [id number] [place] [address] 45938- 5987 August, Lumbar disc disease M51.9 [place] [id number] [place] [address] 25947- 3125 August, [facility] [address] [id number] August, Meniere''s disease, unspecified laterality H81.09 and Type 2 diabetes mellitus without complication, without long-term current use of insulin E11.9 [place] [id number] [place] [address] 48847- 6068 August, BMI 40.0-44.9, adult Z68.41 and Anxiety F41.9 [place] [id number] [place] [address] 82131- 8878 Jul, Lumbar disc disease M51.9 [place] [id number] [place] [address] 86151- 2870 Jul, Generalized anxiety disorder F41.1 [place] [address] [place] [address] Jul, [facility] [id number] [place] [address] 75597- 8473 Jul, Lumbar disc disease M51.9 [facility] [address] [id number] Jun, Urinary tract infection without hematuria, site unspecified N39.0 ; Bilateral impacted cerumen H61.23 ; Loose stools R19.5 and Type 2 diabetes mellitus without complication, without long-term current use of insulin E11.9 [place] [address] [place] [address] 43922- 2763 Jun, [place] [id number] [place] [address] 80356- 6915 Jun, Fibromyalgia M79.7 [place] [id number] [place] [address] 09106- 0440 Jun, Breast mass, right N63.10 [place] [address] [place] [address] 63725- 4626 Jun, Breast mass, right N63.10 [facility] [address] [id number] Jun, Breast mass, right N63.10 ; Type 2 diabetes mellitus without complication , without long-term current use of insulin E11.9 and Fibromyalgia M79.7 [place] [address] [place] [address] 71460- 5956 Jun, Gastroesophageal reflux disease without esophagitis K21.9 [facility] [id number] [place] [address] [id number] Jun, Lumbar disc disease M51.9 [facility] [address] [place] [address] 96251- 9443 May, [facility] [id number] [place] [address] [id number] May, [facility] [id number] [place] [address] [id number] May, [facility] [id number] [id number] May, Lumbar disc disease M51.9 [facility] [id number] [address] Apr, [facility] [address] [id number] Apr, Viral upper respiratory tract infection J06.9 and Impacted cerumen, bilateral H61.23 [facility] [address] [id number] [place] [id number] Apr, [facility] [id number] [address] 2546 Apr, [facility] [id number] [address] Apr, Lumbar disc disease M51.[address] [id number] Mar, Lumbar disc disease M51.9 and Fibromyalgia M79.7 [facility] [id number] [address] 77[address] Mar, [facility] [id number] [id number] Feb, [facility] [id number] [address] Jan, Type 2 diabetes mellitus without complication, without long- term current use of insulin E11.9 [facility] [id number] Jan, Type 2 diabetes mellitus without complication, without long-term current use of insulin E11.9 ; Fibromyalgia M79.7 and Lumbar disc disease M51.9 [facility] [address] [id number] [place] [address] 16 Jan, 2017 [facility] [address] [id number] [place] [id number] Jan, [facility] [address] [facility] [id number] [place] [address] Dec, [facility] [address] [id number] [id number] Dec, [facility] [address] [id number] [place] [id number] Dec, [facility] [id number] [place] [address] Nov, Pre-procedure lab exam Z01.812 [facility] [address] [facility] [id number] [place] [address] Nov, Ventral hernia without obstruction or gangrene K43.9 [facility] [address] [id number] [id number] Nov, [facility] [id number] [id number] Nov, [facility] [address] [address] Nov, Ventral hernia without obstruction or gangrene K43.9 [facility] [address] [address] Nov, Fibromyalgia M79.7 and Polyneuropathy associated with underlying disease G63 [facility] [address] [facility] [id number] [place] [address] 2642 Oct, [facility] [address] [id number] [place] [id number] Oct, [facility] [address] [id number] [place] [id number] Oct, [facility] [address] [id number] [place] [id number] Oct, [facility] [address] [id number] [place] [id number] Sep, [facility] [address] [facility] [id number] [place] [address]- 8671 Sep, [facility] [place] [facility] [address] [id number] [place] [address]- 4066 Sep, [facility] [address] [id number] [place] [address]- 5486 August, [facility] [address] [place] [id number] August, Right medial knee pain M25.561 [facility] [place] [facility] [address] [id number] [place] [address]- 0816 August, [facility] [place] [facility] [address] [id number] [place] [address]- 2546 August, [facility] [place] [facility] [address] [id number] [place] [address]- 2546 August, [facility] [place] [facility] [address] [id number] [place] [id number] August, [facility] [place] [facility] [address] [id number] [place] [address]- 2546 August, [facility] [place] [facility] [address] [id number] [place] [address] August, [facility] [place] [facility] [address] [id number] [place] [id number] Jul, [facility] [place] [facility] [address] [id number] [place] [address]- 2546 Jul, [facility] [place] [facility] [address] [id number] [place] [id number] Jul, [facility] [place] [facility] [address] [id number] [place] [address]- 2546 Jun, [facility] [place] [facility] [address] [id number] [place] [address]- 2546 Jun, [facility] [place] [facility] [address] [id number] [place] [address]- 2546 May, [facility] [place] [facility] [address] [id number] [place] 7843 May, [facility] [address]100[place] [address]- 7906 May, [facility] [address] [place] [address] 21267- 9135 May, [facility] [address] [place] [address] 76581- 7848 Apr, [facility] [address] [id number] Apr, Upper respiratory infection with cough and congestion J06.9 [facility] [id number] [place] [address] [id number] Apr, [facility] [address] [place] [address] 85512- 0400 Apr, [facility] [address] [place] [address] 08321- 4602 Mar, [facility] [address] [place] [address] 84828- 8959 Mar, [facility] [address] [place] [address] 03743- 4858 Mar, Other chronic pain G89.29 [facility] [id number] [place] [address] 19535- 3102 Mar, [facility] [address] [place] [address] 49302- 9729 Mar, [facility] [address]100[place] [address]- 4167 Feb, [facility] [address] [place] [address] 20154- 3180 Feb, [facility] [address] [address] Feb, Insomnia, unspecified type G47.00 and Swelling of face R22.0 [facility] [address] [place] [address] 28527- 0421 Feb, [facility] [address] [place] [address] 52009- 5331 Feb, [facility] [id number] [place] [address] 40493- 5428 Feb, [facility] [id number] [place] [address] 118804- 0537 Feb, [facility] [id number] [place] [address] 62341- 7389 Jan, [facility] [id number] [place] [address] 14554- 3978 Jan, [facility] [id number] [place] [address] 08698- 2705 Jan, Neurogenic bladder N31.9 [facility] [id number] [place] [address] 61540- 5065 Jan, [facility] [id number] [place] [address] 87835- 9703 Jan, [facility] [id number] [place] [address] 29680- 3836 Jan, [facility] [id number] [place] [address] 70248- 0660 Jan, [facility] [address] [place] [address] 64484- 3221 Jan, Screening for breast cancer Z12.39 [facility] [address] [place] [address] 08234- 0032 Jan, [facility] [id number] [place] [address] [id number]- 3000 Dec, Type 2 diabetes mellitus without complication, without long- term current use of insulin E11.9 ; Lumbar disc disease M51.9 ; Polyneuropathy associated with underlying disease G63 and Neurogenic bladder N31.9 [facility] [id number] [place] [address] 52138- 8746 16 Dec, 2015 [facility] [address] [address]- 7964 14 Dec, 2015 Other chronic pain G89.29 [facility] [address]100[place] [address]- 7636 12 Dec, 2015 [facility] [address] [place] [address] 62530- 8406 Nov, [facility] [address] [place] [address] 99927- 3555 Nov, [facility] [address] [place] [address] 48067- 3107 Nov, Type 2 diabetes mellitus without complication, [...] anemia, unspecified iron deficiency anemia type D50.9 [facility] [address]100[place] [address]- 8475 Nov, [facility] [address]100[place] [address]- 7155 Nov, [facility] [address]100[place] [address]- 8459 Nov, [facility] [address] [address]- 9407 Nov, [facility] [address] [address]- 5114 Nov, [facility] [address]100[place] [address]- 5432 Nov, [facility] [address] [place] [address] 15683- 9783 Nov, [facility] [address] [facility] [id number] [place] [address]- 4294 Jul, [facility] [address] [facility] [id number] [place] [address]- 1656 Jul, [facility] [address] [facility] [id number] [place] [address]- 5446 August, [facility] [address] [facility] [id number] [place] [address]- 2546 Jun, [facility] [address] [facility] [id number] [place] [address]- 6181 Oct, IMMUNIZATIONS No Known Immunizations SOCIAL HISTORY Never Assessed REASON FOR VISIT Controlled Med Refill PLAN OF CARE VITAL SIGNS MEDICATIONS Medication Instructions Dosage Frequency Start Date End Date Duration Status Hydrocodone-Acetaminophen 7.5-325 MG Orally 2 times a day 1 tablet 12h Nov, 28 days Active RESULTS No Results PROCEDURES [...]
--- OUTSIDE RECORDS SUMMARY | 2018-01-22 14:12 | XMS REPORT ---
Author Author LAURIE MAHAJAN Organization [facility] Address [address] [place] [address] Care Team Providers Care [employer]fd[employer] Solution Architect Name Role Phone LAURIE MAHAJAN Unavailable PROBLEMS Type Condition ICD9-CM Code IMP14-KM Code Onset Dates Condition Status SNOMED Code Problem Lumbar disc disease M51.9 Active 81580154 Problem Neurogenic bladder N31.9 Active 355320449 Problem Polyneuropathy associated with underlying disease G63 Active 753663067 Problem Anxiety F41.9 Active 57930294 Problem Generalized anxiety disorder F41.1 Active 22732418 Problem Insomnia, unspecified type G47.00 Active 797059688 Problem Type 2 diabetes mellitus without complication, without long-term current use of insulin E11.9 Active 863363062 Problem Gastroesophageal reflux disease without esophagitis K21.9 Active 270595172 Problem Other chronic pain G89.29 Active 47113450 Problem Psychosis, unspecified psychosis type F29 Active 90366796 Problem Fibromyalgia M79.7 Active 566927742 Problem Nicotine abuse Z72.0 Active 79376784 Problem Irritable bowel syndrome with diarrhea K58.0 Active 153331124 Problem Chronic pain disorder G89.4 Active 864288284 Problem Meniere disease, unspecified laterality H81.09 Active [id number] ALLERGIES No Information ENCOUNTERS Encounter Location Date Diagnosis [place] [id number] [address] 14 Dec, 2017 [facility] [address] [place] [id number] 13 Dec, 2017 Other acute back pain M54.9 and Lumbar disc disease M51.9 [facility] [id number] [address] Nov, Lumbar disc disease M51.9 [facility] [address], [place] [address] Nov, [facility] [id number] [place] [address]64- 0899 Oct, Lumbar disc disease M51.9 [facility] [id number] [place] [address] 55458- 1064 Oct, [facility] [address] [id number] Oct, Polyneuropathy associated with underlying disease G63 ; Type 2 diabetes mellitus without complication, without long-term current use of insulin E11.9 and Family history of CVA Z82.3 [place] [id number] [place] [address]8020- 3694 Sep, Lumbar disc disease M51.9 [place] [id number] [place] [address] 04398- 2686 Sep, [place] [id number] [place] [address] 21227- 8898 August, Lumbar disc disease M51.9 [place] [id number] [place] [address] 62285- 2370 August, [facility] [address] [place] [id number] August, Meniere''s disease, unspecified laterality H81.09 and Type 2 diabetes mellitus without complication, without long-term current use of insulin E11.9 [place] [id number] [place] [address] 19588- 4828 August, BMI 40.0-44.9, adult Z68.41 and Anxiety F41.9 [place] [id number] [place] [address] 85040- 7687 Jul, Lumbar disc disease M51.9 [place] [id number] [place] [address] 10733- 5268 Jul, Generalized anxiety disorder F41.1 [place] [address] [place] [address] Jul, [facility] [id number] [place] [address]45- 1970 Jul, Lumbar disc disease M51.9 [facility] [address] [place] [id number] Jun, Urinary tract infection without hematuria, site unspecified N39.0 ; Bilateral impacted cerumen H61.23 ; Loose stools R19.5 and Type 2 diabetes mellitus without complication, without long-term current use of insulin E11.9 [place] [address] [place] [address] 49754- 9840 Jun, [place] [id number] [place] [address] 65206- 3661 Jun, Fibromyalgia M79.7 [place] [id number] [place] [address] 21682- 8560 Jun, Breast mass, right N63.10 [place] [address] [place] [address] 09857- 9216 Jun, Breast mass, right N63.10 [facility] [address] [place] [id number] Jun, Breast mass, right N63.10 ; Type 2 diabetes mellitus without complication , without long-term current use of insulin E11.9 and Fibromyalgia M79.7 [place] [address] [place] [address] 50347- 0640 Jun, Gastroesophageal reflux disease without esophagitis K21.9 [facility] [id number] [place] [id number] Jun, Lumbar disc disease M51.9 [facility] [address] [place] [address] 19740- 2200 May, [facility] [id number] [place] [address] [id number] May, [facility] [id number] [place] [id number] May, [facility] [id number] [address] May, Lumbar disc disease M51.9 [facility] [id number] [address] Apr, [facility] [address] [id number] Apr, Viral upper respiratory tract infection J06.9 and Impacted cerumen, bilateral H61.23 [facility] [address] [id number] [address] Apr, [facility] [id number], [place] [address] 2546 Apr, [facility] [id number] [id number] Apr, Lumbar disc disease M51.[address] [id number] Mar, Lumbar disc disease M51.9 and Fibromyalgia M79.7 [facility] [id number], [place] [address] 90[address] Mar, [facility] [id number] [address] Feb, [facility] [id number] [address] Jan, Type 2 diabetes mellitus without complication, without long- term current use of insulin E11.9 [facility] [id number] Jan, Type 2 diabetes mellitus without complication, without long-term current use of insulin E11.9 ; Fibromyalgia M79.7 and Lumbar disc disease M51.9 [facility] [address] [id number] [address] 16 Jan, 2017 [facility] [address] [id number] [address] Jan, [facility] [address] [facility] [id number], [place] [address] Dec, [facility] [address] [id number][place] [id number] Dec, [facility] [address] [id number][place] [id number] Dec, [facility] [id number], [place] [address] Nov, Pre-procedure lab exam Z01.812 [facility] [address] [facility] [id number], [place] [address]26 Nov, Ventral hernia without obstruction or gangrene K43.9 [facility] [address] [id number] [address] Nov, [facility] [id number][place] [address] Nov, [facility] [address] [place] [address] Nov, Ventral hernia without obstruction or gangrene K43.9 [facility] [address] [place] [address] Nov, Fibromyalgia M79.7 and Polyneuropathy associated with underlying disease G63 [facility] [address] [facility] [id number], [place] [address]- 4214 Oct, [facility] [address] [id number], [place] [id number] Oct, [facility] [address] [id number][place] [address] Oct, [facility] [address] [id number] [address] Oct, [facility] [address] [id number], [place] [id number] Sep, [facility] [address] [facility] [id number], [place] [address]- 3399 Sep, [facility] [place] [facility] [address] [id number] [place] [address]- [address] Sep, [facility] [address] [id number] [place] [address] August, [facility] [address] [place] [id number] August, Right medial knee pain M25.561 [facility] [place] [facility] [address] [id number] [place] [address]- 8006 August, [facility] [place] [facility] [address] [id number] [place] [address]- 2546 August, [facility] [place] [facility] [address] [id number] [place] [address]- 2546 August, [facility] [place] [facility] [address] [id number] [place] [address] August, [facility] [place] [facility] [address] [id number] [place] [address]- 2546 August, [facility] [place] [facility] [address] [id number] [place] [id number] August, [facility] [place] [facility] [address] [id number] [place] [id number] Jul, [facility] [place] [facility] [address] [id number] [place] [address]- 2546 Jul, [facility] [place] [facility] [address] [id number][place] [address] Jul, [facility] [place] [facility] [address] [id number] [place] [address]- 2546 Jun, [facility] [place] [facility] [address] [id number] [place] [address]- 2546 Jun, [facility] [place] [facility] [address] [id number] [place] [address]- 2546 May, [facility] [place] [facility] [address] [id number] [place] [address]99 May, [facility] [address], [place] [address]- 6925 May, [facility] [address] [place] [address] 80755- 0725 May, [facility] [address] [place] [address] 29367- 7815 Apr, [facility] [address] [place] [id number] Apr, Upper respiratory infection with cough and congestion J06.9 [facility] [id number] [place] [id number] Apr, [facility] [address] [place] [address] 26480- 7321 Apr, [facility] [address] [place] [address] 80508- 8709 Mar, [facility] [address] [place] [address] 95391- 9902 Mar, [facility] [address] [place] [address] 34618- 6131 Mar, Other chronic pain G89.29 [facility] [id number] [place] [address] 06323- 9921 Mar, [facility] [address] [place] [address] 12414- 5813 Mar, [facility] [address], [place] [address]- 0709 Feb, [facility] [address] [place] [address] 72709- 1826 Feb, [facility] [address] [place] [address] Feb, Insomnia, unspecified type G47.00 and Swelling of face R22.0 [facility] [address] [place] [address] 01689- 7133 Feb, [facility] [id number] [place] [address] 46009- 3515 Feb, [facility] [id number] [place] [address] 45896- 7964 Feb, [facility] [id number] [place] [address] 678420- 1667 Feb, [facility] [id number] [place] [address] 31646- 2592 Jan, [facility] [id number] [place] [address] 34804- 6564 Jan, [facility] [id number] [place] [address] 61504- 3846 Jan, Neurogenic bladder N31.9 [facility] [id number] [place] [address] 22765- 0921 Jan, [facility] [id number] [place] [address] 89322- 0204 Jan, [facility] [id number] [place] [address] 88733- 1918 Jan, [facility] [id number] [place] [address] 58637- 5734 Jan, [facility] [address] [place] [address] 47616- 1235 Jan, Screening for breast cancer Z12.39 [facility] [address] [place] [address] 43733- 6351 Jan, [facility] [id number] [place] [address] [id number]- 4465 Dec, Type 2 diabetes mellitus without complication, without long- term current use of insulin E11.9 ; Lumbar disc disease M51.9 ; Polyneuropathy associated with underlying disease G63 and Neurogenic bladder N31.9 [facility] [id number] [place] [address] 82656- 5572 16 Dec, 2015 [facility] [address], [place] [address]- 2249 14 Dec, 2015 Other chronic pain G89.29 [facility] [address], [place] [address]- 5560 12 Dec, 2015 [facility] [address] [place] [address] 54414- 4679 Nov, [facility] [id number] [place] [address] 82859- 7970 Nov, [facility] [address] [place] [address] 08759- 2066 Nov, Type 2 diabetes mellitus without complication, [...] anemia, unspecified iron deficiency anemia type D50.9 [facility] [address], [place] [address]- 0105 Nov, [facility] [address], [place] [address]- 0458 Nov, [facility] [address], [place] [address]- 6436 Nov, [facility] [address], [place] [address]- 5493 Nov, [facility] [address], [place] [address]- 6916 Nov, [facility] [address], [place] [address]- 9897 Nov, [facility] [id number] [place] [address] 35339- 3952 Nov, [facility] [address] [facility] [id number] [place] [address]- 7025 Jul, [facility] [address] [facility] [id number], [place] [address]- 9236 Jul, [facility] [address] [facility] [id number], [place] [address]- 0553 August, [facility] [address] [facility] [id number], [place] [address]- 2343 Jun, [facility] [address] [facility] [id number], [place] [address]- 9379 Oct, IMMUNIZATIONS No Known Immunizations SOCIAL HISTORY Never Assessed REASON FOR VISIT Requests return call PLAN OF CARE VITAL SIGNS MEDICATIONS Unknown [...]
--- OUTSIDE RECORDS SUMMARY | 2018-01-22 14:13 | XMS REPORT ---
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9 Active 328951875 Problem Gastroesophageal reflux disease without esophagitis K21.9 Active 911038087 Problem Other chronic pain G89.29 Active 72413717 Problem Psychosis, unspecified psychosis type F29 Active 32502581 Problem Fibromyalgia M79.7 Active 176173582 Problem Nicotine abuse Z72.0 Active 28172891 Problem Irritable bowel syndrome with diarrhea K58.0 Active 442762406 Problem Chronic pain disorder G89.4 Active 739896846 Problem Meniere disease, unspecified laterality H81.09 Active 33744529 ALLERGIES No Information ENCOUNTERS Encounter Location Date Diagnosis [facility] [id number], [place] [address] Nov, Lumbar disc disease M51.9 [facility] [id number] [place] [address]- [address] Nov, [facility] [id number] [place] [address] 93920- 2130 Oct, Lumbar disc disease M51.9 [facility] [address], [place] [address] Oct, [facility] [address] [id number] Oct, Polyneuropathy associated with underlying disease G63 ; Type 2 diabetes mellitus without complication, without long-term current use of insulin E11.9 and Family history of CVA Z82.3 [address] [address], [place] [address] Sep, Lumbar disc disease M51.9 [place] [id number] [place] [address] 35977- 7181 Sep, [place] [id number] [place] [address] 71877- 3262 August, Lumbar disc disease M51.9 [address] [id number] [place] [address] 42012- 8711 August, [facility] [place] [address] [id number] August, Meniere''s disease, unspecified laterality H81.09 and Type 2 diabetes mellitus without complication, without long-term current use of insulin E11.9 [place] [id number] [place] [address] 21424- 5415 August, BMI 40.0-44.9, adult Z68.41 and Anxiety F41.9 [place] [id number] [place] [address] 40075- 7535 Jul, Lumbar disc disease M51.9 [place], [place] [address] Jul, Generalized anxiety disorder F41.1 [place] [place] [address] 07567- 5851 Jul, [place] [id number] [place] [address] 01258- 6590 Jul, Lumbar disc disease M51.9 [facility] [address] [id number] Jun, Urinary tract infection without hematuria, site unspecified N39.0 ; Bilateral impacted cerumen H61.23 ; Loose stools R19.5 and Type 2 diabetes mellitus without complication, without long-term current use of insulin E11.9 [facility] [address], [place] [address] Jun, [place] [address], [place] [address] Jun, Fibromyalgia M79.7 [place], [place] [address] Jun, Breast mass, right N63.10 [place], [place] [address] Jun, Breast mass, right N63.10 [facility] [address] [id number] Jun, Breast mass, right N63.10 ; Type 2 diabetes mellitus without complication , without long-term current use of insulin E11.9 and Fibromyalgia M79.7 [place] [address], [place] [address] Jun, Gastroesophageal reflux disease without esophagitis K21.9 [place] [id number] [address] Jun, Lumbar disc disease M51.9 [place], [place] [address] 25[address] May, [place] [id number] [address] May, [place] [id number] [address] May, [place] [id number] [address] May, Lumbar disc disease M51.9 [place] [id number] [address] Apr, [facility] [address] [id number] Apr, Viral upper respiratory tract infection J06.9 and Impacted cerumen, bilateral H61.23 [facility] [id number] [address] Apr, [facility] [address], [place] [address] Apr, [facility] [id number] [place] [id number] Apr, Lumbar disc disease M51.[address] [facility] [address] [id number] Mar, Lumbar disc disease M51.9 and Fibromyalgia M79.7 [facility] [address], [place] [address] Mar, [facility] [id number] [address] Feb, [facility] [address] [address] Jan, Type 2 diabetes mellitus without complication, without long- term current use of insulin E11.9 [facility] [id number] Jan, Type 2 diabetes mellitus without complication, without long-term current use of insulin E11.9 ; Fibromyalgia M79.7 and Lumbar disc disease M51.9 [facility] [id number], [place] [address] Jan, [facility] [id number], [place] [address] Jan, [facility] [address], [place] [address] Dec, [facility] [id number], [place] [address] 15 Dec, 2016 [facility] [id number], [place] [address] Dec, [facility] [address] [id number] [address] Nov, Pre-procedure lab exam Z01.812 [facility] [address] [facility] [id number], [place] [address] Nov, Ventral hernia without obstruction or gangrene K43.9 [facility] [address] [id number][place] [address] Nov, [facility] [address] [id number], [place] [address] Nov, [facility] [address] [address] Nov, Ventral hernia without obstruction or gangrene K43.9 [facility] [address] [address] Nov, Fibromyalgia M79.7 and Polyneuropathy associated with underlying disease G63 [facility] [id number], [place] [address] Oct, [facility] [address] [id number], [place] [address] Oct, [facility] [address] [id number], [place] [address] Oct, [facility] [place] [facility] [address] [id number], [place] [address] Oct, [facility] [address] [id number], [place] [address] Sep, [facility] [address] [facility] [id number], [place] [address] Sep, [facility] [address] [facility] [id number], [place] [address] Sep, [facility] [address] [facility] [id number], [place] [address] August, [facility] [address] [id number] August, Right medial knee pain M25.561 [facility] [place] [facility] [address] [id number] [place] [address] August, [facility] [place] [facility] [address] [id number], [place] [address] August, [facility] [place] [facility] [address] [facility] [id number] [place] [address]- [address] August, [facility] [place] [facility] [address] [id number], [place] [address] August, [facility] [place] [facility] [address] [id number] [place] [address]- [address] August, [facility] [place] [facility] [address] [id number], [place] [address] August, [facility] [place] [facility] [address] [id number], [place] [address] Jul, [facility] [place] [facility] [address] [facility] [id number], [place] [address]- [address] Jul, [facility] [place] [facility] [address] [id number], [place] [address] Jul, [facility] [place] [facility] [address] [facility] [id number], [place] [address]- [address]46 Jun, [facility] [place] [facility] [address] [facility] [id number], [place] [address]- 2546 Jun, [facility] [place] [facility] [address] [id number], [place] [address]- 2546 May, [facility] [place] [facility] [address] [id number] [place] [address]- 2546 May, [facility] [place] [facility] [address] [id number], [place] [address]- [address]46 May, [facility] [place] [facility] [address] [facility] [id number], [place] [address]- 2546 May, [facility] [place] [facility] [address], [place] [address] Apr, [facility] [address] [id number] Apr, Upper respiratory infection with cough and congestion J06.9 [facility] [id number] [place] [id number] 10 Apr, 2016 [facility] [id number] [place] [address] 90282- 8760 Apr, [facility] [address], [place] [address]- 47[address] Mar, [facility] [id number] [place] [address] 04994- 5531 Mar, [facility] [address] [place] [address] 23996- 9615 Mar, Other chronic pain G89.29 [facility] [id number] [place] [address] 26903- 0517 Mar, [facility] [address], [place] [address]- [address]92 Mar, [facility] [id number] [place] [address] 51246- 6085 Feb, [facility] [address], [place] [address] Feb, [facility] [address] [address] Feb, Insomnia, unspecified type G47.00 and Swelling of face R22.0 [facility] [address], [place] [address]- [address] Feb, [facility] [address], [place] [address] 14 Feb, 2016 [facility] [address], [place] [address]- 0864 Feb, [facility] [address], [place] [address]- 4[address] Feb, [facility] [address], [place] [address]- 2903 24 Jan, 2016 [facility] [id number], [place] [address]- [address] Jan, [facility] [id number] [place] [address] 10519- 9922 14 Jan, 2016 Neurogenic bladder N31.9 [facility] [id number] [place] [address] 54428- 0805 10 Jan, 2016 [facility] [id number] [place] [address] 68346- 2566 Jan, [facility] [id number] [place] [address] 52463- 0296 Jan, [facility] [id number] [place] [address] 58519- 8059 Jan, [facility] [id number] [place] [address] 17449- 3574 Jan, Screening for breast cancer Z12.39 [facility] [id number] [place] [address] 06667- 2133 Jan, [facility] [address], [place] [address]- 6[address] 27 Dec, 2015 Type 2 diabetes mellitus without complication, without long- term current use of insulin E11.9 ; Lumbar disc disease M51.9 ; Polyneuropathy associated with underlying disease G63 and Neurogenic bladder N31.9 [facility] [address], [place] [address]- 2128 16 Dec, 2015 [facility] [id number] [place] [address] 89099- 2510 14 Dec, 2015 Other chronic pain G89.29 [facility] [id number] [place] [address] 88817- 5953 Dec, [facility] [address], [place] [address]- 9144 Nov, [facility] [id number] [place] [address] 07445- 8154 Nov, [facility] [address], [place] [address]- 3593 Nov, Type 2 diabetes mellitus without complication, [...] anemia, unspecified iron deficiency anemia type D50.9 [facility] [address], [place] [address]- 3367 Nov, [facility] [address], [place] [address]- 3395 Nov, [facility] [address], [place] [address]- 8538 Nov, [facility] [id number], [place] [address]- 43[address] Nov, [facility] [address], [place] [address]- 6888 Nov, [facility] [address], [place] [address]- 5070 Nov, [facility] [address], [place] [address]- 0077 Nov, [facility] [address], [place] [address]- 3507 14 Jul, 2014 [facility] [address], [place] [address]- 7483 Jul, [facility] [address] [address]- 3276 August, [facility] [address] [facility] [id number] [place] [address]- 7369 Jun, [facility] [address] [facility] [id number] [place] [address]- 7040 Oct, IMMUNIZATIONS No Known Immunizations SOCIAL HISTORY Never Assessed REASON FOR VISIT Controlled Med Refill PLAN OF CARE VITAL SIGNS MEDICATIONS Medication Instructions Dosage Frequency Start Date End Date Duration Status Hydrocodone-Acetaminophen 7.5-325 MG Orally 2 times a day 1 tablet 12h Oct, 28 days Active RESULTS No Results PROCEDURES [...]
--- OUTSIDE RECORDS SUMMARY | 2018-01-22 14:13 | XMS REPORT ---
Author Author LAURIE MAHAJAN Organization [facility] Address [address] [place] [address] Care Team Providers Care Case Management Manager Name Role Phone LAURIE MAHAJAN Unavailable PROBLEMS Type Condition ICD9-CM Code MAY73-SK Code Onset Dates Condition Status SNOMED Code Problem Lumbar disc disease M51.9 Active 38953604 Problem Neurogenic bladder N31.9 Active 809179124 Problem Polyneuropathy associated with underlying disease G63 Active 266990255 Problem Anxiety F41.9 Active 02454439 Problem Generalized anxiety disorder F41.1 Active 41535533 Problem Insomnia, unspecified type G47.00 Active 409998826 Problem Type 2 diabetes mellitus without complication, without long-term current use of insulin E11.9 Active 753565073 Problem Gastroesophageal reflux disease without esophagitis K21.9 Active 684406558 Problem Other chronic pain G89.29 Active 66425747 Problem Psychosis, unspecified psychosis type F29 Active 92472450 Problem Fibromyalgia M79.7 Active 156244137 Problem Nicotine abuse Z72.0 Active 90185464 Problem Irritable bowel syndrome with diarrhea K58.0 Active 194082370 Problem Chronic pain disorder G89.4 Active 555735575 Problem Meniere disease, unspecified laterality H81.09 Active 95464341 ALLERGIES No Information ENCOUNTERS Encounter Location Date Diagnosis [facility] [id number] [address] Nov, Lumbar disc disease M51.9 [facility] [address] [place] [address]- [address] Nov, [facility] [address] [place] [address] 81014- 2116 Oct, Lumbar disc disease M51.9 [facility] [address] [address] Oct, [facility] [address] [place] [id number] Oct, Polyneuropathy associated with underlying disease G63 ; Type 2 diabetes mellitus without complication, without long-term current use of insulin E11.9 and Family history of CVA Z82.3 [address], [place] [address] Sep, Lumbar disc disease M51.9 [place] [id number] [place] [address]- 7316 Sep, [place] [id number] [place] [address] 77564- 2146 August, Lumbar disc disease M51.9 [place] [address] [place] [address] 94735- [address] August, [facility] [place] [address] [place] [id number] August, Meniere''s disease, unspecified laterality H81.09 and Type 2 diabetes mellitus without complication, without long-term current use of insulin E11.9 [place] [address] [place] [address]31- 9790 August, BMI 40.0-44.9, adult Z68.41 and Anxiety F41.9 [place] [address] [place] [address] 04069- 8299 Jul, Lumbar disc disease M51.9 [place] [address] [address] Jul, Generalized anxiety disorder F41.1 [place] [address] [place] [address] 99216- 6222 Jul, [place] [id number] [place] [address] 30870- 4495 Jul, Lumbar disc disease M51.9 [facility] [address] [place] [id number] Jun, Urinary tract infection without hematuria, site unspecified N39.0 ; Bilateral impacted cerumen H61.23 ; Loose stools R19.5 and Type 2 diabetes mellitus without complication, without long-term current use of insulin E11.9 [facility] [address] [address] Jun, [place] [address] [address] Jun, Fibromyalgia M79.7 [place], [place] [address] Jun, Breast mass, right N63.10 [place] [address] Jun, Breast mass, right N63.10 [facility] [address] [place] [id number] Jun, Breast mass, right N63.10 ; Type 2 diabetes mellitus without complication , without long-term current use of insulin E11.9 and Fibromyalgia M79.7 [place] [address], [place] [address] Jun, Gastroesophageal reflux disease without esophagitis K21.9 [place] [id number] [address] Jun, Lumbar disc disease M51.9 [address], [place] [address] 2546 May, [place] [id number][place] [address] May, [place] [id number] [id number] May, [place] [id number] [address] May, Lumbar disc disease M51.9 [place] [id number][place] [address] Apr, [facility] [address] [place] [address] Apr, Viral upper respiratory tract infection J06.9 and Impacted cerumen, bilateral H61.23 [facility] [id number] [address] Apr, [facility] [address], [place] [address] Apr, [facility] [id number] [place] [id number] Apr, Lumbar disc disease M51.[address] [facility] [address] [id number] Mar, Lumbar disc disease M51.9 and Fibromyalgia M79.7 [facility] [address] [address] Mar, [facility] [id number] [address] Feb, [facility] [address] [address] Jan, Type 2 diabetes mellitus without complication, without long- term current use of insulin E11.[facility] [id number] Jan, Type 2 diabetes mellitus without complication, without long-term current use of insulin E11.9 ; Fibromyalgia M79.7 and Lumbar disc disease M51.9 [facility] [id number][place] [address] Jan, [facility] [id number][place] [address] Jan, [facility] [address], [place] [address] Dec, [facility] [id number], [place] [id number] 15 Dec, 2016 [facility] [id number][place] [id number] Dec, [facility] [address] [id number] [address] Nov, Pre-procedure lab exam Z01.812 [facility] [address] [facility] [facility] [id number], [place] [address] Nov, Ventral hernia without obstruction or gangrene K43.9 [facility] [address] [id number][place] [address] Nov, [facility] [address] [id number][place] [address] Nov, [facility] [address] [id number] Nov, Ventral hernia without obstruction or gangrene K43.9 [facility] [address] [id number] Nov, Fibromyalgia M79.7 and Polyneuropathy associated with underlying disease G63 [facility] [id number], [place] [address] Oct, [facility] [address] [id number][place] [address] Oct, [facility] [address] [id number], [place] [address] Oct, [facility] [place] [facility] [address] [id number], [place] [address] Oct, [facility] [address] [id number], [place] [address] Sep, [facility] [address] [facility] [address] [facility] [id number], [place] [address] Sep, [facility] [address] [facility] [address] [facility] [id number], [place] [address] Sep, [facility] [address] [facility] [address] [facility] [id number], [place] [address] August, [facility] [address] [address] August, Right medial knee pain M25.561 [facility] [place] [facility] [address] [id number] [place] [address] August, [facility] [place] [facility] [address] [id number], [place] [address] August, [facility] [place] [facility] [address] [facility] [address] [facility] [id number] [place] [address]- [address] August, [facility] [place] [facility] [address] [id number][place] [address] August, [facility] [place] [facility] [address] [id number] [place] [address] August, [facility] [place] [facility] [address] [id number], [place] [address] August, [facility] [place] [facility] [address] [id number], [place] [address] Jul, [facility] [place] [facility] [address] [facility] [address] [facility] [id number][place] [address]- 2546 Jul, [facility] [place] [facility] [address] [id number], [place] [id number] Jul, [facility] [place] [facility] [address] [facility] [address] [facility] [id number], [place] [address]- 2546 Jun, [facility] [place] [facility] [address] [facility] [address] [facility] [id number], [place] [address]- 2546 Jun, [facility] [place] [facility] [address] [id number], [place] [address]- 2546 May, [facility] [place] [facility] [address] [id number] [place] [address]- 2546 May, [facility] [place] [facility] [address] [id number], [place] [address]- 2546 May, [facility] [place] [facility] [address] [facility] [facility] [id number][place] [address]- 2546 May, [facility] [place] [facility] [address], [place] [address] Apr, [facility] [address] [place] [id number] Apr, Upper respiratory infection with cough and congestion J06.9 [facility] [id number] [place] [id number] 10 Apr, 2016 [facility] [address] [place] [address] 49586- 2083 Apr, [facility] [address], [place] [address]- 1097 Mar, [facility] [address] [place] [address] 59291- 2125 Mar, [facility] [address] [place] [address]40- 3795 Mar, Other chronic pain G89.29 [facility] [address] [place] [address]- 1973 Mar, [facility] [address], [place] [address]- 7[address] Mar, [facility] [address] [place] [address] 21933- 6877 Feb, [facility] [address], [place] [address]- 9[address] Feb, [facility] [address] [id number] Feb, Insomnia, unspecified type G47.00 and Swelling of face R22.0 [facility] [address], [place] [address]- 6[address] Feb, [facility] [address], [place] [address] 1989 14 Feb, 2016 [facility] [address], [place] [address]- 479[address] Feb, [facility] [address], [place] [address] Feb, [facility] [address], [place] [address]- 6210 24 Jan, 2016 [facility] [address] [id number], [place] [address]- [address] Jan, [facility] [id number] [place] [address] 90901- 6674 14 Jan, 2016 Neurogenic bladder N31.9 [facility] [id number] [place] [address] 09927- 5723 10 Jan, 2016 [facility] [id number] [place] [address] 97297- 2704 Jan, [facility] [id number] [place] [address] 19066- 4626 Jan, [facility] [id number] [place] [address] 32807- 0913 Jan, [facility] [address] [place] [address] 58230- 6616 Jan, Screening for breast cancer Z12.39 [facility] [address] [place] [address] 60116- 1181 Jan, [facility] [address], [place] [address]- [address] 27 Dec, 2015 Type 2 diabetes mellitus without complication, without long- term current use of insulin E11.9 ; Lumbar disc disease M51.9 ; Polyneuropathy associated with underlying disease G63 and Neurogenic bladder N31.9 [facility] [address], [place] [address]- 1069 16 Dec, 2015 [facility] [id number] [place] [address] 81470- 3519 14 Dec, 2015 Other chronic pain G89.29 [facility] [id number] [place] [address] 63590- 9345 Dec, [facility] [address], [place] [address]- 3298 Nov, [facility] [id number] [place] [address] 59701- 7964 Nov, [facility] [address], [place] [address]- 6026 Nov, Type 2 diabetes mellitus without complication, [...] anemia, unspecified iron deficiency anemia type D50.9 [facility] [address], [place] [address]- 5776 Nov, [facility] [address], [place] [address]- 0112 Nov, [facility] [address], [place] [address]- 7121 Nov, [facility] [id number], [place] [address]- 3705 Nov, [facility] [address], [place] [address]- 9310 Nov, [facility] [address], [place] [address]- 0402 Nov, [facility] [address], [place] [address]- 4910 Nov, [facility] [address], [place] [address]- 1251 14 Jul, 2014 [facility] [address], [place] [address]- 9960 Jul, [facility] [address] [address]- 6819 August, [facility] [address] [facility] [address] [facility] [id number] [place] [address]- 0281 Jun, [facility] [address] [facility] [address] [facility] [id number] [place] [address]- 6771 Oct, IMMUNIZATIONS No Known Immunizations SOCIAL HISTORY Never Assessed REASON FOR VISIT Medication refill request PLAN OF CARE VITAL SIGNS MEDICATIONS Medication Instructions Dosage Frequency Start Date End Date Duration Status Victoza 18 MG/3ML Subcutaneous Once a day inject 1.8MG 24h 31 Active RESULTS No Results PROCEDURES No Known [...]
--- OUTSIDE RECORDS SUMMARY | 2018-01-22 14:13 | XMS REPORT ---
Author Author LAURIE MAHAJAN Organization [facility] Address [address] [place] [address] Care Team Providers Care Mail Distribution Clerk Name Role Phone LAURIE MAHAJAN Unavailable PROBLEMS Type Condition ICD9-CM Code [id number] Code Onset Dates Condition Status SNOMED Code Problem Lumbar disc disease M51.9 Active 41318103 Problem Neurogenic bladder N31.9 Active 228050981 Problem Polyneuropathy associated with underlying disease G63 Active 373876208 Problem Anxiety F41.9 Active 47691232 Problem Generalized anxiety disorder F41.1 Active 44436452 Problem Insomnia, unspecified type G47.00 Active 977676550 Problem Type 2 diabetes mellitus without complication, without long-term current use of insulin E11.9 Active 114202793 Problem Gastroesophageal reflux disease without esophagitis K21.9 Active 278199241 Problem Other chronic pain G89.29 Active 12365609 Problem Psychosis, unspecified psychosis type F29 Active 60358934 Problem Fibromyalgia M79.7 Active 929910915 Problem Nicotine abuse Z72.0 Active 98301289 Problem Irritable bowel syndrome with diarrhea K58.0 Active 174779493 Problem Chronic pain disorder G89.4 Active 722589373 Problem Meniere disease, unspecified laterality H81.09 Active 71895764 ALLERGIES No Information ENCOUNTERS Encounter Location Date Diagnosis [facility] [id number] [address] Nov, Lumbar disc disease M51.9 [facility] [id number] [place] [address] Nov, [facility] [address] [place] [address] 33484- 7668 Oct, Lumbar disc disease M51.9 [facility] [address], [place] [address] Oct, [facility] [address] [place] [id number] Oct, Polyneuropathy associated with underlying disease G63 ; Type 2 diabetes mellitus without complication, without long-term current use of insulin E11.9 and Family history of CVA Z82.3 [address], [place] [address] Sep, Lumbar disc disease M51.9 [address] [id number] [place] [address]3- 50[address] Sep, [place] [id number] [place] [address]- 3472 August, Lumbar disc disease M51.9 [address] [address] [place] [address] 18146- 0[address] August, [facility] [address] [place] [id number] August, Meniere''s disease, unspecified laterality H81.09 and Type 2 diabetes mellitus without complication, without long-term current use of insulin E11.9 [place] [address] [place] [address] 99746- [address] August, BMI 40.0-44.9, adult Z68.41 and Anxiety F41.9 [address] [address] [place] [address] 31842- 1166 Jul, Lumbar disc disease M51.9 [address] [address], [place] [address] Jul, Generalized anxiety disorder F41.1 [address] [place] [address] [place] [address] 71902- 4965 Jul, [place] [id number] [place] [address]19- 7539 Jul, Lumbar disc disease M51.9 [facility] [address] [place] [id number] Jun, Urinary tract infection without hematuria, site unspecified N39.0 ; Bilateral impacted cerumen H61.23 ; Loose stools R19.5 and Type 2 diabetes mellitus without complication, without long-term current use of insulin E11.9 [facility] [address], [place] [address] Jun, [address] [address], [place] [address] Jun, Fibromyalgia M79.7 [address] [address], [place] [address] Jun, Breast mass, right N63.10 [address] [address] [address], [place] [address] Jun, Breast mass, right N63.10 [facility] [address] [place] [id number] Jun, Breast mass, right N63.10 ; Type 2 diabetes mellitus without complication , without long-term current use of insulin E11.9 and Fibromyalgia M79.7 [place] [address], [place] [address] Jun, Gastroesophageal reflux disease without esophagitis K21.9 [id number] [id number] Jun, Lumbar disc disease M51.9 [address] [address], [place] [address] May, [place] [address] [id number] [id number] May, [place] [id number] [id number] May, [place] [id number] [id number] May, Lumbar disc disease M51.9 [place] [id number] [address] Apr, [facility] [address] [place] [id number] Apr, Viral upper respiratory tract infection J06.9 and Impacted cerumen, bilateral H61.23 [facility] [id number] [address] Apr, [facility] [address], [place] [address] Apr, [facility] [id number] [place] [id number] Apr, Lumbar disc disease M51.[address] [facility] [address] [id number] Mar, Lumbar disc disease M51.9 and Fibromyalgia M79.7 [facility] [address], [place] [address] Mar, [facility] [id number] [address] Feb, [facility] [address] [address] Jan, Type 2 diabetes mellitus without complication, without long- term current use of insulin E11.[address] [facility] [id number] Jan, Type 2 diabetes mellitus without complication, without long-term current use of insulin E11.9 ; Fibromyalgia M79.7 and Lumbar disc disease M51.9 [facility] [id number] [address] Jan, [facility] [id number] [address] Jan, [facility] [address], [place] [address] Dec, [facility] [id number] [id number] 15 Dec, 2016 [facility] [id number] [address] Dec, [facility] [address] [id number] [address] Nov, Pre-procedure lab exam Z01.812 [facility] [address] [facility] [id number], [place] [address] Nov, Ventral hernia without obstruction or gangrene K43.9 [facility] [address] [id number] [address] Nov, [facility] [address] [id number] [address] Nov, [facility] [address] [place] [address] Nov, Ventral hernia without obstruction or gangrene K43.9 [facility] [address] [place] [address] Nov, Fibromyalgia M79.7 and Polyneuropathy associated with underlying disease G63 [facility] [id number], [place] [address] Oct, [facility] [address] [id number], [place] [id number] Oct, [facility] [address] [id number], [place] [id number] Oct, [facility] [place] [facility] [address] [id number] [id number] Oct, [facility] [address] [id number], [place] [address] Sep, [facility] [address] [facility] [id number], [place] [address] Sep, [facility] [address] [facility] [id number], [place] [address] Sep, [facility] [address] [facility] [id number], [place] [address] August, [facility] [address] [place] [address] August, Right medial knee pain M25.561 [facility] [place] [facility] [address] [id number] [place] [address] August, [facility] [place] [facility] [address] [id number], [place] [address] August, [facility] [place] [facility] [address] [facility] [id number] [place] [address]- [address] August, [facility] [place] [facility] [address] [id number] [id number] August, [facility] [place] [facility] [address] [id number] [place] [address]- [address] August, [facility] [place] [facility] [address] [id number], [place] [id number] August, [facility] [place] [facility] [address] [id number], [place] [id number] Jul, [facility] [place] [facility] [address] [facility] [id number], [place] [address]- [address] Jul, [facility] [place] [facility] [address] [id number] [address] Jul, [facility] [place] [facility] [address] [facility] [id number], [place] [address]- 2546 Jun, [facility] [place] [facility] [address] [facility] [id number], [place] [address]- 2546 Jun, [facility] [place] [facility] [address] [id number], [place] [address]- [address] May, [facility] [place] [facility] [address] [id number] [place] [address]- [address]46 May, [facility] [place] [facility] [address] [id number], [place] [address]- 25[address] May, [facility] [place] [facility] [address] [facility] [id number], [place] [address]- 2546 May, [facility] [place] [facility] [address], [place] [address] Apr, [facility] [address] [place] [id number] Apr, Upper respiratory infection with cough and congestion J06.9 [facility] [id number] [place] [id number] 10 Apr, 2016 [facility] [address] [place] [address] 64970- 5234 Apr, [facility] [address], [place] [address] Mar, [facility] [address] [place] [address] 80543- 1017 Mar, [facility] [address] [place] [address] 78959- 1828 Mar, Other chronic pain G89.29 [facility] [address] [place] [address] 07899- 0819 Mar, [facility] [address], [place] [address]- 8[address] Mar, [facility] [address] [place] [address] 58124- 4237 Feb, [facility] [address], [place] [address]- [address] Feb, [facility] [address] [place] [id number] Feb, Insomnia, unspecified type G47.00 and Swelling of face R22.0 [facility] [address], [place] [address]- [address] Feb, [facility] [address], [place] [address]- 46[address] 14 Feb, 2016 [facility] [address], [place] [address]- 0[address] Feb, [facility] [address], [place] [address]- 8457 Feb, [facility] [address], [place] [address] 24 Jan, 2016 [facility] [id number], [place] [address]- [address] Jan, [facility] [id number] [place] [address] 16308- 9686 14 Jan, 2016 Neurogenic bladder N31.9 [facility] [id number] [place] [address] 02175- 9262 10 Jan, 2016 [facility] [id number] [place] [address] 24296- 1291 Jan, [facility] [id number] [place] [address] 40804- 7110 Jan, [facility] [id number] [place] [address] 67374- 5873 Jan, [facility] [address] [place] [address] 09016- 9669 Jan, Screening for breast cancer Z12.39 [facility] [address] [place] [address] 77691- 0946 Jan, [facility] [address], [place] [address]- [address] 27 Dec, 2015 Type 2 diabetes mellitus without complication, without long- term current use of insulin E11.9 ; Lumbar disc disease M51.9 ; Polyneuropathy associated with underlying disease G63 and Neurogenic bladder N31.9 [facility] [address], [place] [address]- 2677 16 Dec, 2015 [facility] [id number] [place] [address] 91457- 1886 14 Dec, 2015 Other chronic pain G89.29 [facility] [id number] [place] [address] 16155- 9337 Dec, [facility] [address], [place] [address]- 4212 Nov, [facility] [id number] [place] [address] 69031- 9206 Nov, [facility] [address], [place] [address]- [address] Nov, Type 2 diabetes mellitus without complication, [...] anemia, unspecified iron deficiency anemia type D50.9 [facility] [address], [place] [address]- 8403 Nov, [facility] [address], [place] [address]- 3812 Nov, [facility] [address], [place] [address]- 6401 Nov, [facility] [id number], [place] [address]- 6667 Nov, [facility] [address], [place] [address]- 6017 Nov, [facility] [address], [place] [address]- 3573 Nov, [facility] [address], [place] [address]- 4[address] Nov, [facility] [address], [place] [address]- 1585 14 Jul, 2014 [facility] [address], [place] [address]- 6872 Jul, [facility] [address] August, [facility] [address] [facility] [id number] [address]- [address]21 Jun, [facility] [address] [facility] [id number] [place] [address] Oct, IMMUNIZATIONS No Known Immunizations SOCIAL HISTORY Never Assessed REASON FOR VISIT routine visit PLAN OF CARE Activity Details Follow Up prn Reason: VITAL SIGNS MEDICATIONS Medication Instructions Dosage Frequency Start Date End Date Duration Status Furosemide 20 MG TAKE 1 TABLET BY MOUTH EVERY DAY 30 Active Zofran 4 MG Orally every 8 hrs as needed 1 tablet Jul, Active Sodium Phosphate enema Active Ziprasidone HCl 20 MG TAKE 2 CAPSULES BY MOUTH EVERY MORNING AND TAKE 1 CAPSULE BY MOUTH EVERY EVENING 30 Active Polysaccharide Iron Complex 150 MG Orally Twice a day 1 capsule 12h Active Duloxetine HCl 30 MG TAKE 1 CAPSULE BY MOUTH EVERY DAY WITH 60MG TO EQUAL 90MG 30 Active Nystatin - Active Albuterol Sulfate (2.5 MG/3ML) 0.083% Inhalation every 4 hrs 3 ml as needed 4h Active Klor-Con M20 20 meq Orally 2 times a day 1 tablet with food 12h Active Pantoprazole Sodium 20 MG TAKE 1 TABLET BY MOUTH ONCE DAILY 30 Active Meclizine HCl 12.5 MG Orally every 6 hrs as needed for dizziness 1 tablet as needed August, Active Hydrocodone-Acetaminophen 7.5-325 MG Orally 2 times a day 1 tablet 12h 25 Sep, 2017 28 days Active Blood Glucose Test Strip - In Vitro 3 times a day 8h Active Hydrochlorothiazide 12.5 MG TAKE 1 CAPSULE BY MOUTH TWICE DAILY 30 Active Acetaminophen 325 MG Orally every 4 hrs headache 2 capsule as needed Active Milk of Magnesia Concentrate 2400 MG/10ML Orally daily 30ml as needed 24h Active Adult Aspirin EC Low Strength 81 MG Orally Once a day 1 tablet 24h Oct, Oct, 90 days Active Atenolol 25 MG TAKE 1 TABLET BY MOUTH ONCE DAILY 30 Active Duloxetine HCl 60 mg 1 capsule Active Dicyclomine HCl 20 MG TAKE 1 TABLET BY MOUTH THREE TIMES DAILY 30 Active Victoza 18 MG/3ML Subcutaneous Once a day inject 1.8MG 24h 31 Active Glimepiride 4 MG TAKE 1 TABLET BY MOUTH ONCE DAILY WITH BREAKFAST 30 Active Chely-Tussin 100 MG/5ML Orally every 4 hrs 10 ml as needed 4h Active Metformin HCl 1000 MG TAKE 1 TABLET BY MOUTH TWICE DAILY 30 Active RESULTS No Results PROCEDURES Procedure Date Ordered Result Body Site Stable Visit (10 minutes) October 14, 2017 INSTRUCTIONS MEDICATIONS ADMINISTERED No Known Medications [...]
--- OUTSIDE RECORDS SUMMARY | 2018-01-22 14:14 | XMS REPORT ---
Author Author LAURIE MAHAJAN Organization [facility] Address [address] [place] [address] Care Team Providers Care Cycling Instructor Name Role Phone LAURIE MAHAJAN Unavailable PROBLEMS Type Condition ICD9-CM Code SWH54-QN Code Onset Dates Condition Status SNOMED Code Problem Lumbar disc disease M51.9 Active 41053565 Problem Neurogenic bladder N31.9 Active 699259389 Problem Polyneuropathy associated with underlying disease G63 Active 791316103 Problem Anxiety F41.9 Active 12012996 Problem Generalized anxiety disorder F41.1 Active 67029526 Problem Insomnia, unspecified type G47.00 Active 347177442 Problem Type 2 diabetes mellitus without complication, without long-term current use of insulin E11.9 Active 473646482 Problem Gastroesophageal reflux disease without esophagitis K21.9 Active 919702424 Problem Other chronic pain G89.29 Active 37483190 Problem Psychosis, unspecified psychosis type F29 Active 20535857 Problem Fibromyalgia M79.7 Active 646970960 Problem Nicotine abuse Z72.0 Active 52406145 Problem Irritable bowel syndrome with diarrhea K58.0 Active 092159540 Problem Chronic pain disorder G89.4 Active 986181911 Problem Meniere disease, unspecified laterality H81.09 Active 03030627 ALLERGIES No Information ENCOUNTERS Encounter Location Date Diagnosis [facility] [address] [facility] [id number] [address] Nov, [facility] [address] [facility] [id number], [place] [address] Oct, Lumbar disc disease M51.9 [facility] [address] [facility] [id number], [place] [address] Oct, [facility] [address] [place] [id number] Oct, Polyneuropathy associated with underlying disease G63 ; Type 2 diabetes mellitus without complication, without long-term current use of insulin E11.9 and Family history of CVA Z82.3 [place] [id number] [place] [address]22- 2205 Sep, Lumbar disc disease M51.9 [place] [id number] [place] [address] 85943- 3784 Sep, [place] [id number] [place] [address] 26895- 7032 August, Lumbar disc disease M51.9 [place] [id number] [place] [address] 38430- 4022 August, [facility] [id number] August, Meniere''s disease, unspecified laterality H81.09 and Type 2 diabetes mellitus without complication, without long-term current use of insulin E11.9 [place] [id number] [place] [address] 34519- 1821 August, BMI 40.0-44.9, adult Z68.41 and Anxiety F41.9 [place] [id number] [place] [address] 84959- 5163 Jul, Lumbar disc disease M51.9 [place] [id number] [place] [address] 20799- 5288 Jul, Generalized anxiety disorder F41.1 [place] [id number] [place] [address] 32527- 4209 Jul, [place] [id number] [place] [address] 65219- 6729 Jul, Lumbar disc disease M51.9 [facility] [address] [place] [id number] Jun, Urinary tract infection without hematuria, site unspecified N39.0 ; Bilateral impacted cerumen H61.23 ; Loose stools R19.5 and Type 2 diabetes mellitus without complication, without long-term current use of insulin E11.9 [place] [address] [address] Jun, [place] [address] [address] Jun, Fibromyalgia M79.7 [facility] [address], [place] [address] Jun, Breast mass, right N63.10 [place] [address] [id number] [address] Jun, Breast mass, right N63.10 [facility] [address] [place] [id number] Jun, Breast mass, right N63.10 ; Type 2 diabetes mellitus without complication , without long-term current use of insulin E11.9 and Fibromyalgia M79.7 [place] [address], [place] [address] Jun, Gastroesophageal reflux disease without esophagitis K21.9 [place] [id number] [id number] Jun, Lumbar disc disease M51.9 [place] [address] [id number] [address] May, [place] [id number] [id number] May, [place] [id number] [address] May, [place] [id number] [address] May, Lumbar disc disease M51.9 [facility] [id number] [address] Apr, [facility] [address] [place] [id number] Apr, Viral upper respiratory tract infection J06.9 and Impacted cerumen, bilateral H61.23 [facility] [address] [id number] [id number] Apr, [facility] [address] [facility] [id number] Apr, [facility] [id number] [address] Apr, [facility] disc disease M51.9 [facility] [address] [place] [id number] Mar, Lumbar disc disease M51.9 and Fibromyalgia M79.7 [facility] [address] [id number], [place] [address] Mar, [facility] [id number] [id number] Feb, [facility] [address] [id number], [place] [address] Jan, Type 2 diabetes mellitus without complication, without long- term current use of insulin E11.9 [facility] [address] [place] [id number] Jan, Type 2 diabetes mellitus without complication, without long-term current use of insulin E11.9 ; Fibromyalgia M79.7 and Lumbar disc disease M51.9 [facility] [id number], [place] [id number] Jan, [facility] [address] [place] [address] [id number] [address] Jan, [facility] [address] [id number], [place] [address] Dec, [facility] [address] [id number] [address] Dec, [facility] [address] [id number] [address] Dec, [facility] [address] [id number], [place] [address] Nov, Pre-procedure lab exam Z01.812 [facility] [address] [id number][place] [address] Nov, Ventral hernia without obstruction or gangrene K43.9 [facility] [address] [id number] [id number] Nov, [facility] [address] [id number] [address] Nov, [facility] [address] [place] [address] Nov, Ventral hernia without obstruction or gangrene K43.9 [facility] [address] [place] [address] Nov, Fibromyalgia M79.7 and Polyneuropathy associated with underlying disease G63 [facility] [address] [facility] [id number], [place] [address] Oct, [facility] [address] [id number] [id number] Oct, [facility] [address] [id number], [place] [address] Oct, [facility] [address] [id number], [place] [id number] Oct, [facility] [address] [id number] [address] Sep, [facility] [address] [facility] [id number], [place] [address]- 288[address] Sep, [facility] [address] [facility] [id number], [place] [address]- [address] Sep, [facility] [address] [facility] [id number], [place] [address] August, [facility] [address] [place] [id number] August, Right medial knee pain M25.561 [facility] [address] [facility] [id number], [place] [address]- [address] August, [facility] [place] [facility] [address] [id number] [place] [address]- [address] August, [facility] [place] [facility] [address] [id number] [place] [address]- 2546 August, [facility] [place] [facility] [address] [id number] [place] [id number] August, [facility] [place] [facility] [address] [id number] [place] [address]- 2546 August, [facility] [place] [facility] [address] [id number] [place] [id number] August, [facility] [place] [facility] [address] [id number] [place] [id number] Jul, [facility] [place] [facility] [address] [id number] [place] [address]- 2546 Jul, [facility] [place] [facility] [address] [id number], [place] [id number] Jul, [facility] [place] [facility] [address] [id number] [place] [address]- 2546 Jun, [facility] [place] [facility] [address] [id number] [place] [address]- 2546 Jun, [facility] [place] [facility] [address] [id number] [place] [address]- 2546 May, [facility] [place] [facility] [address] [id number], [place] [address]- 2546 May, [facility] [place] [facility] [address] [id number] [place] [address]- 2546 May, [facility] [place] [facility] [address] [id number] [place] [address]- 2546 May, [facility] [place] [facility] [address] [id number] [place] [address]- 2546 Apr, [facility] [address] [place] [id number] Apr, Upper respiratory infection with cough and congestion J06.9 [facility] [address] [id number] [place] [id number] Apr, [facility] [id number] [place] [address] 25399- 9659 Apr, [facility] [id number] [place] [address] 46118- 9094 Mar, [facility] [id number] [place] [address] 46609- 9965 Mar, [facility] [id number] [place] [address] 01285- 6365 Mar, Other chronic pain G89.29 [facility] [id number] [place] [address] 23083- 4389 Mar, [facility] [id number] [place] [address] 97536- 5350 Mar, [facility] [address], [place] [address]- 1813 Feb, [facility] [id number] [place] [address] 49169- 3764 Feb, [facility] [address] [place] [id number] Feb, Insomnia, unspecified type G47.00 and Swelling of face R22.0 [facility] [address], [place] [address]- 6236 Feb, [facility] [address], [place] [address]- 3158 14 Feb, 2016 [facility] [address], [place] [address]- 2096 07 Feb, 2016 [facility] [address], [place] [address]- 0446 Feb, [facility] [id number] [place] [address] 47139- 8411 Jan, [facility] [id number] [place] [address] 79417- 2346 Jan, [facility] [id number] [place] [address] 22781- 5119 Jan, Neurogenic bladder N31.9 [facility] [id number] [place] [address] 09665- 4216 Jan, [facility] [id number] [place] [address] 31152- 7559 Jan, [facility] [id number] [place] [address] 99075- 5532 Jan, [facility] [id number] [place] [address] 69677- 7049 Jan, [facility] [id number] [place] [address] 77630- 8689 Jan, Screening for breast cancer Z12.39 [facility] [id number] [place] [address] 53545- 5861 Jan, [facility] [id number] [place] [address] 92754- 3322 27 Dec, 2015 Type 2 diabetes mellitus without complication, without long- term current use of insulin E11.9 ; Lumbar disc disease M51.9 ; Polyneuropathy associated with underlying disease G63 and Neurogenic bladder N31.9 [facility] [id number] [place] [address] 89921- 7466 16 Dec, 2015 [facility] [id number] [place] [address] 95928- 5488 14 Dec, 2015 Other chronic pain G89.29 [facility] [id number] [place] [address] 51443- 1038 12 Dec, 2015 [facility] [id number] [place] [address] 50780- 1569 Nov, [facility] [address], [place] [address]- 0896 Nov, [facility] [id number] [place] [address] 81497- 8060 Nov, Type 2 diabetes mellitus without complication, [...] anemia, unspecified iron deficiency anemia type D50.9 [facility] [id number] [place] [address] 37407- 7069 Nov, [facility] [id number] [place] [address] 82857- 9437 Nov, [facility] [id number] [place] [address] 10876- 9595 Nov, [facility] [id number] [place] [address] 40243- 3080 Nov, [facility] [id number] [place] [address] 59383- 8465 Nov, [facility] [address], [place] [address]- 6905 Nov, [facility] [address], [place] [address]- 2926 Nov, [facility] [address], [place] [address]- 0246 Jul, [facility] [id number] [place] [address] 44172- 0436 Jul, [facility] [address], [place] [address]- 1302 August, [facility] [id number] [place] [address] [place] [address]- 9406 Jun, [facility] [address] [facility] [id number] [place] [address]- 2121 Oct, IMMUNIZATIONS No Known Immunizations SOCIAL HISTORY Never Assessed REASON FOR VISIT DC [employer] PLAN OF CARE VITAL SIGNS MEDICATIONS Medication Instructions Dosage Frequency Start Date End Date Duration Status Pantoprazole Sodium 20 MG Orally Once a day 1 tablet 24h August, 30 day(s) Active RESULTS No [...]
--- OUTSIDE RECORDS SUMMARY | 2018-01-22 14:14 | XMS REPORT ---
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 Name Role Phone LAURIE MAHAJAN Unavailable PROBLEMS Type Condition ICD9-CM Code TKI26-KD Code Onset Dates Condition Status SNOMED Code Problem Lumbar disc disease M51.9 Active 88475270 Problem Neurogenic bladder N31.9 Active 323354897 Problem Polyneuropathy associated with underlying disease G63 Active 873092038 Problem Anxiety F41.9 Active 19562154 Problem Generalized anxiety disorder F41.1 Active 90606949 Problem Insomnia, unspecified type G47.00 Active 456653778 Problem Type 2 diabetes mellitus without complication, without long-term current use of insulin E11.9 Active 772868841 Problem Gastroesophageal reflux disease without esophagitis K21.9 Active 367915480 Problem Other chronic pain G89.29 Active 47065517 Problem Psychosis, unspecified psychosis type F29 Active 23323406 Problem Fibromyalgia M79.7 Active 341496180 Problem Nicotine abuse Z72.0 Active 75613898 Problem Irritable bowel syndrome with diarrhea K58.0 Active 237340133 Problem Chronic pain disorder G89.4 Active 217051933 Problem Meniere disease, unspecified laterality H81.09 Active 88659832 ALLERGIES No Information ENCOUNTERS Encounter Location Date Diagnosis [facility] [address] [facility] [id number] [address] Nov, [facility] [address] [facility] [id number], [place] [address] Oct, Lumbar disc disease M51.9 [facility] [address] [facility] [id number], [place] [address] Oct, [facility] [address] [place] [id number] Oct, Polyneuropathy associated with underlying disease G63 ; Type 2 diabetes mellitus without complication, without long-term current use of insulin E11.9 and Family history of CVA Z82.3 [place] [address] [id number] [place] [address] Sep, Lumbar disc disease M51.9 [place] [address] [id number] [place] [address] 25094- 6585 Sep, [place] [address] [id number] [place] [address] 58168- 9793 August, Lumbar disc disease M51.9 [place] [id number] [place] [address]- 1996 August, [facility] [id number] August, Meniere''s disease, unspecified laterality H81.09 and Type 2 diabetes mellitus without complication, without long-term current use of insulin E11.9 [place] [id number] [place] [address]- 1964 August, BMI 40.0-44.9, adult Z68.41 and Anxiety F41.9 [place] [id number] [place] [address] 71351- 1066 Jul, Lumbar disc disease M51.9 [place] [id number] [place] [address] 28485- 0750 Jul, Generalized anxiety disorder F41.1 [place] [id number] [place] [address] 04341- 5764 Jul, [place] [address] [id number] [place] [address] 99184- 7446 Jul, Lumbar disc disease M51.9 [facility] [address] [place] [address] Jun, Urinary tract infection without hematuria, site unspecified N39.0 ; Bilateral impacted cerumen H61.23 ; Loose stools R19.5 and Type 2 diabetes mellitus without complication, without long-term current use of insulin E11.9 [place] [address], [place] [address] Jun, [place] [address], [place] [address] Jun, Fibromyalgia M79.7 [facility] [address], [place] [address] Jun, Breast mass, right N63.10 [place] [address] [place] [id number], [place] [address] Jun, Breast mass, right N63.10 [facility] [address] [place] [id number] Jun, Breast mass, right N63.10 ; Type 2 diabetes mellitus without complication , without long-term current use of insulin E11.9 and Fibromyalgia M79.7 [place] [address], [place] [address] Jun, Gastroesophageal reflux disease without esophagitis K21.9 [place] [id number] [address] Jun, Lumbar disc disease M51.9 [place] [address] [place] [address] [id number], [place] [address] May, [place] [id number] [address] May, [place] [id number], [place] [id number] May, [place] [id number][place] [id number] May, Lumbar disc disease M51.9 [facility] [id number] [id number] Apr, [facility] [address] [address] Apr, Viral upper respiratory tract infection J06.9 and Impacted cerumen, bilateral H61.23 [facility] [address] [id number] [id number] Apr, [facility] [address] [facility] [id number] [address] Apr, [facility] [id number] [id number] Apr, Lumbar disc disease M51.9 [facility] [address] [id number] Mar, Lumbar disc disease M51.9 and Fibromyalgia M79.7 [facility] [address] [id number], [place] [address] Mar, [facility] [id number] [id number] Feb, [facility] [address] [place] [address] [id number], [place] [address] Jan, Type 2 diabetes mellitus without complication, without long- term current use of insulin E11.9 [facility] [address] [place] [address] Jan, Type 2 diabetes mellitus without complication, without long-term current use of insulin E11.9 ; Fibromyalgia M79.7 and Lumbar disc disease M51.9 [facility] [id number] [address] Jan, [facility] [address] [place] [id number][place] [address] Jan, [facility] [address] [id number], [place] [address] Dec, [facility] [address] [place] [address] [id number], [place] [address] Dec, [facility] [address] [place] [address] [id number], [place] [address] Dec, [facility] [address] [id number], [place] [address] Nov, Pre-procedure lab exam Z01.812 [facility] [address] [id number], [place] [address] Nov, Ventral hernia without obstruction or gangrene K43.9 [facility] [address] [id number][place] [address] Nov, [facility] [address] [id number][place] [address] Nov, [facility] [address] [place] [address] Nov, Ventral hernia without obstruction or gangrene K43.9 [facility] [address] [place] [address] Nov, Fibromyalgia M79.7 and Polyneuropathy associated with underlying disease G63 [facility] [address] [facility] [id number], [place] [address] Oct, [facility] [address] [id number], [place] [id number] Oct, [facility] [address] [id number], [place] [id number] Oct, [facility] [address] [id number], [place] [id number] Oct, [facility] [address] [id number], [place] [address] Sep, [facility] [address] [facility] [id number], [place] [address] 37[address] Sep, [facility] [address] [facility] [id number], [place] [address] Sep, [facility] [address] [facility] [id number], [place] [address] August, [facility] [address] [place] [address] August, Right medial knee pain M25.561 [facility] [address] [facility] [id number], [place] [address] August, [facility] [place] [facility] [address] [id number] [place] [address] August, [facility] [place] [facility] [address] [id number] [place] [address]- [address]46 August, [facility] [place] [facility] [address] [id number] [place] [id number] August, [facility] [place] [facility] [address] [id number] [place] [address]- [address] August, [facility] [place] [facility] [address] [id number] [place] [id number] August, [facility] [place] [facility] [address] [id number] [place] [address] Jul, [facility] [place] [facility] [address] [id number] [place] [address]- [address]46 Jul, [facility] [place] [facility] [address] [id number], [place] [address] Jul, [facility] [place] [facility] [address] [id number] [place] [address]- 2546 Jun, [facility] [place] [facility] [address] [id number] [place] [address]- 2546 Jun, [facility] [place] [facility] [address] [id number] [place] [address]- 2546 May, [facility] [place] [facility] [address] [id number], [place] [address]- 2546 May, [facility] [place] [facility] [address] [id number] [place] [address]- 2546 May, [facility] [place] [facility] [address] [id number] [place] [address]- 2546 May, [facility] [place] [facility] [address] [id number] [place] [address]- [address]46 Apr, [facility] [address] [address] Apr, Upper respiratory infection with cough and congestion J06.9 [facility] [id number] [place] [id number] Apr, [facility] [address] [place] [address] 06969- 1693 Apr, [facility] [address] [place] [address] 10341- 4628 Mar, [facility] [address] [id number] [place] [address] 73865- 6670 Mar, [facility] [address] [place] [address] 13540- 9316 Mar, Other chronic pain G89.29 [facility] [id number] [place] [address] 05668- 3059 Mar, [facility] [id number] [place] [address] 50694- 4089 Mar, [facility] [address], [place] [address]- 4148 Feb, [facility] [address] [place] [address] 66825- 0548 Feb, [facility] [address] [address] Feb, Insomnia, unspecified type G47.00 and Swelling of face R22.0 [facility] [address], [place] [address]- 6338 Feb, [facility] [address], [place] [address]- 3931 14 Feb, 2016 [facility] [address], [place] [address]- 0[address] 07 Feb, 2016 [facility] [address]65[address], [place] [address] Feb, [facility] [address] [place] [address] 02969- 7315 Jan, [facility] [address] [place] [address] 43400- 3453 Jan, [facility] [address] [place] [id number] [place] [address] 31287- 3490 Jan, Neurogenic bladder N31.9 [facility] [address] [place] [id number] [place] [address] 98336- 9296 Jan, [facility] [id number] [place] [address] 83326- 4366 Jan, [facility] [address] [place] [id number] [place] [address] 09828- 9350 Jan, [facility] [id number] [place] [address] 60652- 7774 Jan, [facility] [address] [place] [address] [id number] [place] [address] 56599- 3831 Jan, Screening for breast cancer Z12.39 [facility] [id number] [place] [address] 74417- 2886 Jan, [facility] [address] [id number] [place] [address] 16375- 5752 27 Dec, 2015 Type 2 diabetes mellitus without complication, without long- term current use of insulin E11.9 ; Lumbar disc disease M51.9 ; Polyneuropathy associated with underlying disease G63 and Neurogenic bladder N31.9 [facility] [address] [place] [address] 67527- 7908 16 Dec, 2015 [facility] [address] [place] [address] 96571- 2122 14 Dec, 2015 Other chronic pain G89.29 [facility] [id number] [place] [address] 21788- 3031 12 Dec, 2015 [facility] [address] [place] [address] 14503- 6230 Nov, [facility] [address], [place] [address]- 8332 Nov, [facility] [address] [id number] [place] [address] 97603- 7211 Nov, Type 2 diabetes mellitus without complication, [...] anemia, unspecified iron deficiency anemia type D50.9 [facility] [address] [id number] [place] [address] 93506- 4204 Nov, [facility] [id number] [place] [address] 84593- 9999 Nov, [facility] [id number] [place] [address] 33726- 1721 Nov, [facility] [id number] [place] [address] 65271- 2055 Nov, [facility] [address] [place] [id number] [place] [address] 94160- 2976 Nov, [facility] [address], [place] [address]- 6477 Nov, [facility] [address], [place] [address]- 8170 Nov, [facility] [address], [place] [address]- 6712 Jul, [facility] [address] [place] [id number] [place] [address] 35256- 4190 Jul, [facility] [address], [place] [address]- 1717 August, [facility] [address] [place] [id number] [place] [address] [place] [address]- 0566 Jun, [facility] [address] [facility] [id number] [place] [address]- 4405 Oct, IMMUNIZATIONS No Known Immunizations SOCIAL HISTORY Never Assessed REASON FOR VISIT nausea PLAN OF CARE Activity Details Follow Up prn Reason: VITAL SIGNS MEDICATIONS Unknown Medications RESULTS No Results PROCEDURES Procedure Date Ordered Result Body Site Minor complication (15 mins) August 12, 2017 INSTRUCTIONS MEDICATIONS ADMINISTERED No Known Medications [...]
--- OUTSIDE RECORDS SUMMARY | 2018-01-22 14:14 | XMS REPORT ---
Author Author [employer] Organization [facility] Address [address] [place] [address] Care Team Providers Care Life Insurance Underwriter Name Role Phone SUDEEP SUNSHINE Unavailable PROBLEMS Type Condition ICD9-CM Code UEJ96-HS Code Onset Dates Condition Status SNOMED Code Problem Lumbar disc disease M51.9 Active 97769790 Problem Neurogenic bladder N31.9 Active 553846981 Problem Polyneuropathy associated with underlying disease G63 Active 555341393 Problem Anxiety F41.9 Active 77750825 Problem Generalized anxiety disorder F41.1 Active 44528291 Problem Insomnia, unspecified type G47.00 Active 439674104 Problem Type 2 diabetes mellitus without complication, without long-term current use of insulin E11.9 Active 061045829 Problem Gastroesophageal reflux disease without esophagitis K21.9 Active 520130371 Problem Other chronic pain G89.29 Active 97998344 Problem Psychosis, unspecified psychosis type F29 Active 57997994 Problem Fibromyalgia M79.7 Active 785621269 Problem Nicotine abuse Z72.0 Active 84308036 Problem Irritable bowel syndrome with diarrhea K58.0 Active 602876009 Problem Chronic pain disorder G89.4 Active 153547331 Problem Meniere disease, unspecified laterality H81.09 Active 61103306 ALLERGIES Substance Reaction Event Type Date Status keflex Unknown Non Drug Allergy August, Active Penicillins Unknown Non Drug Allergy August, Active Sulfa(sulfonamide Antibiotics) Unknown Non Drug Allergy August, Active ENCOUNTERS Encounter Location Date Diagnosis [facility] [address] [facility] [id number], [place] [address] Oct, Lumbar disc disease M51.9 [facility] [address] [facility] [id number], [place] [address] Oct, [facility] [address] [place] [id number] Oct, Polyneuropathy associated with underlying disease G63 ; Type 2 diabetes mellitus without complication, without long-term current use of insulin E11.9 and Family history of CVA Z82.3 [place] [address] [place] [address]55- 6461 Sep, Lumbar disc disease M51.9 [place] [address] [place] [id number] [place] [address] 11316- 6987 Sep, [place] [address] [place] [id number] [place] [address] 84922- 6275 August, Lumbar disc disease M51.9 [place] [address] [place] [id number] [place] [address] 26972- 5090 August, [facility] [address] [id number] August, Meniere''s disease, unspecified laterality H81.09 and Type 2 diabetes mellitus without complication, without long-term current use of insulin E11.9 [place] [address] [place] [address] 75787- 8105 August, BMI 40.0-44.9, adult Z68.41 and Anxiety F41.9 [place] [address] [place] [id number] [place] [address] 07515- 2908 Jul, Lumbar disc disease M51.9 [place] [address] [place] [id number] [place] [address] 81178- 6387 Jul, Generalized anxiety disorder F41.1 [place] [address] [place] [address] 71940- 0222 Jul, [place] [address] [place] [id number] [place] [address] 94962- 3716 Jul, [facility]51.9 [facility] [address] [id number] Jun, Urinary tract infection without hematuria, site unspecified N39.0 ; Bilateral impacted cerumen H61.23 ; Loose stools R19.5 and Type 2 diabetes mellitus without complication, without long-term current use of insulin E11.9 [facility] [address] [address] Jun, [facility] [address] [address] Jun, Fibromyalgia M79.7 [facility] [address] [address] Jun, Breast mass, right N63.10 [place] [address] [address] 09 Jun, 2017 Breast mass, right N63.10 [facility] [address] [id number] Jun, Breast mass, right N63.10 ; Type 2 diabetes mellitus without complication , without long-term current use of insulin E11.9 and Fibromyalgia M79.7 [place] [address] [address] Jun, Gastroesophageal reflux disease without esophagitis K21.9 [place] [id number] [place] [id number] Jun, Lumbar disc disease M51.9 [place] [address] [address] May, [place] [id number] [address] May, [place] [id number] [id number] May, [place] [id number] [place] [id number] May, Lumbar disc disease M51.9 [facility] [id number] [id number] Apr, [facility] [address] [id number] 25 Bret, 2018 Viral upper respiratory tract infection J06.9 and Impacted cerumen, bilateral H61.[address] [facility] [id number] [id number] Apr, [facility] [address] [address] [id number] [address] Apr, [facility] [id number] [id number] Apr, Lumbar disc disease M51.9 [facility] [address] [id number] Mar, Lumbar disc disease M51.9 and Fibromyalgia M79.7 [facility] [address] [address] [id number], [place] [address] Mar, [facility] [id number] [address] Feb, [facility] [address] [address] [id number] [address] Jan, Type 2 diabetes mellitus without complication, without long- term current use of insulin E11.9 [facility] [address] [id number] Jan, Type 2 diabetes mellitus without complication, without long-term current use of insulin E11.9 ; Fibromyalgia M79.7 and Lumbar disc disease M51.[address] [facility] [address] [place] [id number] [address] Jan, [facility] [address] [place] [address] [id number] [address] Jan, [facility] [address] [facility] [id number], [place] [address] Dec, [facility] [id number], [place] [id number] Dec, [facility] [address] [place] [id number] [address] Dec, [facility] [address] [place] [address] [id number] [address] Nov, Pre-procedure lab exam Z01.812 [facility] [address] [facility] [id number], [place] [address] Nov, Ventral hernia without obstruction or gangrene K43.9 [facility] [address] [id number] [id number] Nov, [facility] [address] [id number] [id number] Nov, [facility] [address] [address] Nov, Ventral hernia without obstruction or gangrene K43.9 [facility] [address] [id number] Nov, Fibromyalgia M79.7 and Polyneuropathy associated with underlying disease G63 [facility] [address] [facility] [id number], [place] [address] Oct, [facility] [address] [id number][place] [id number] Oct, [facility] [address] [id number][place] [id number] Oct, [facility] [address] [id number][place] [address] Oct, [facility] [address] [id number] [id number] Sep, [facility] [address] [facility] [id number], [place] [address] Sep, [facility] [address] [facility] [id number], [place] [address] Sep, [facility] [address] [facility] [id number], [place] [address] August, [facility] [address] [id number] August, Right medial knee pain M25.561 [facility] [address] [facility] [id number], [place] [address] August, [facility] [place] [facility] [address] [id number] [place] [address]- [address] August, [facility] [place] [facility] [address] [id number] [place] [address]- [address]46 August, [facility] [place] [facility] [address] [id number] [place] [id number] August, [facility] [place] [facility] [address] [id number] [place] [address]- [address]46 August, [facility] [place] [facility] [address] [id number] [place] [id number] August, [facility] [place] [facility] [address] [id number] [place] [id number] Jul, [facility] [place] [facility] [address] [id number] [place] [address]- [address]46 Jul, [facility] [place] [facility] [address] [id number] [place] [id number] Jul, [facility] [place] [facility] [address] [id number] [place] [address]- 2546 Jun, [facility] [place] [facility] [address] [id number] [place] [address] 2546 Jun, [facility] [place] [facility] [address] [id number] [place] [address]- 2546 May, [facility] [place] [facility] [address] [id number] [place] [address]- 2546 May, [facility] [place] [facility] [address] [id number] [place] [address]- 2546 May, [facility] [place] [facility] [address] [id number] [place] [address]- 2546 May, [facility] [place] [facility] [address] [id number] [place] [address]- 2546 Apr, [facility] [address] [id number] Apr, Upper respiratory infection with cough and congestion J06.9 [facility] [address] [place] [address] [id number] [place] [id number] Apr, [facility] [address]00565[address], [place] [address] 7140 Apr, [facility] [address] [place] [address] 12321- 8570 Mar, [facility] [address] [place] [id number] [place] [address] 17692- 4954 Mar, [facility] [address] [id number] [place] [address] 57777- 7285 Mar, Other chronic pain G89.29 [facility] [id number] [place] [address] 21613- 0574 Mar, [facility] [address] [place] [address] 90983- 9938 Mar, [facility] [address], [place] [address]- 8176 Feb, [facility] [address] [place] [address] 07371- 6302 Feb, [facility] [address] [id number] Feb, Insomnia, unspecified type G47.00 and Swelling of face R22.0 [facility] [address]65[address], [place] [address]- 95[address] Feb, [facility] [address]65[address], [place] [address]- 1508 14 Feb, 2016 [facility] [address], [place] [address]- 8335 Feb, [facility] [address], [place] [address]- 4095 Feb, [facility] [address], [place] [address]- 5892 24 Jan, 2016 [facility] [address] [place] [address] [id number] [place] [address] 72059- 1684 Jan, [facility] [address] [place] [address] [id number] [place] [address] 42061- 3285 Jan, Neurogenic bladder N31.9 [facility] [address] [place] [address] [id number] [place] [address] 06419- 9276 Jan, [facility] [address] [place] [address] [id number] [place] [address] 56912- 4057 Jan, [facility] [address] [place] [id number] [place] [address] 27780- 4391 Jan, [facility] [address] [place] [id number] [place] [address] 38749- 7492 Jan, [facility] [address] [place] [id number] [place] [address] 62294- 9683 Jan, Screening for breast cancer Z12.39 [facility] [address] [place] [address] 30577- 1084 Jan, [facility] [address] [place] [address] [id number] [place] [address] 80661- 2973 27 Dec, 2015 Type 2 diabetes mellitus without complication, without long- term current use of insulin E11.9 ; Lumbar disc disease M51.9 ; Polyneuropathy associated with underlying disease G63 and Neurogenic bladder N31.9 [facility] [address], [place] [address]- 4671 16 Dec, 2015 [facility] [address] [place] [id number] [place] [address] 78760- 6464 14 Dec, 2015 Other chronic pain G89.29 [facility] [address] [place] [id number] [place] [address] 19886- 6152 12 Dec, 2015 [facility] [address] [place] [id number] [place] [address] 20177- 5559 Nov, [facility] [address], [place] [address]- 4135 Nov, [facility] [address] [place] [id number] [place] [address] 32336- 6238 Nov, Type 2 diabetes mellitus without complication, [...] unspecified iron deficiency anemia type D50.9 [facility] [address], [place] [address]- 2889 Nov, [facility] [address] [place] [address] [id number] [place] [address] 51873- 1100 Nov, [facility] [address] [place] [address] [id number] [place] [address] 26704- 2226 Nov, [facility] [address] [place] [address] [id number] [place] [address] 00130- 7034 Nov, [facility] [address] [place] [address] [id number], [place] [address]- 2563 Nov, [facility] [address], [place] [address]- 3158 Nov, [facility] [address], [place] [address]- 2332 Nov, [facility] [address] [place] [address] 37494- 6699 Jul, [facility] [address] [place] [address] 27377- 8334 Jul, [facility] [address], [place] [address]- 9413 August, [facility] [address] [place] [id number] [address]104 Jun, [facility] [address] [facility] [id number], [place] [address]- 6563 Oct, IMMUNIZATIONS No Known Immunizations SOCIAL HISTORY Never Assessed REASON FOR VISIT BH intake Anjelica PLAN OF CARE Activity Details Follow Up prn Reason: VITAL SIGNS Height 59.5 in 2017-08-03 Weight 221.9 lbs 2017-08-03 Heart Rate 96 bpm 2017-08-03 Respiratory Rate 22 2017-08-03 BMI 44.06 kg/m2 2017-08-03 Blood pressure systolic 152 mmHg 2017-08-03 Blood pressure diastolic 78 mmHg 2017-08-03 MEDICATIONS Medication Instructions Dosage Frequency Start Date End Date Duration Status Metformin HCl 500 mg Orally Twice a day 2 tablet with meals 12h Active Ziprasidone HCl 20 MG TAKE 2 CAPSULES BY MOUTH EVERY MORNING AND TAKE 1 CAPSULE BY MOUTH EVERY EVENING 30 Active Duloxetine HCl 60 MG TAKE 1 CAPSULE BY MOUTH ONCE DAILY 30 Active Glimepiride 4 MG TAKE 1 TABLET BY MOUTH ONCE DAILY WITH BREAKFAST 30 Active Klor-Con M20 20 meq Orally 2 times a day 1 tablet with food 12h Active Metformin HCl 1000 MG TAKE 1 TABLET BY MOUTH TWICE DAILY 30 Active Furosemide 20 MG TAKE 1 TABLET BY MOUTH EVERY DAY 30 Active Victoza 18 MG/3ML Subcutaneous Once a day inject 1.8MG 24h 31 Active Nystatin 948138 UNIT/GM Externally Twice a day 1 application to affected area 12h 18 Nov, 2015 Active Chely-Tussin 100 MG/5ML Orally every 4 hrs 10 ml as needed 4h Active Atenolol 25 MG Orally Once a day 1 tablet 24h Active Meclizine HCl 12.5 MG Orally every 6 hrs 2 tablets as needed 6h August, Active Duloxetine HCl 30 MG TAKE 1 CAPSULE BY MOUTH EVERY DAY WITH 60MG TO EQUAL 90MG 30 Active Hydrocodone-Acetaminophen 7.5-325 MG Orally 2 times a day 1 tablet 12h 30 Jul, 2017 28 days Active Hydrochlorothiazide 12.5 MG TAKE 1 CAPSULE BY MOUTH TWICE DAILY 30 Active Albuterol Sulfate (2.5 MG/3ML) 0.083% Inhalation every 4 hrs 3 ml as needed 4h Active Zofran 4 MG Orally every 8 hrs as needed 1 tablet Jul, Active Dicyclomine HCl 20 MG TAKE 1 TABLET BY MOUTH THREE TIMES DAILY 30 Active Ziprasidone HCl 40 mg Orally Twice a day 2 tabs in the morning and 2 tabs in the morning 12h Not-Taking Omeprazole-Sodium Bicarbonate 20-1100 MG Orally Once a day 1 capsule on an empty stomach 24h Jun, 30 day(s) Active Milk of Magnesia Concentrate 2400 MG/10ML Orally daily 30ml as needed 24h Active Polysaccharide Iron Complex 150 MG Orally Twice a day 1 capsule 12h Active RESULTS No Results PROCEDURES No [...]
--- OUTSIDE RECORDS SUMMARY | 2018-01-22 14:15 | XMS REPORT ---
Author Author LAURIE MAHAJAN Organization [facility] Address [address] [place] [address] Care Team Providers Care Railway Patrol Officer Name Role Phone LAURIE MAHAJAN Unavailable PROBLEMS Type Condition ICD9-CM Code RMB62-OA Code Onset Dates Condition Status SNOMED Code Problem Lumbar disc disease M51.9 Active 96154626 Problem Neurogenic bladder N31.9 Active 719462542 Problem Polyneuropathy associated with underlying disease G63 Active 524262598 Problem Anxiety F41.9 Active 51310877 Problem Generalized anxiety disorder F41.1 Active 99078329 Problem Insomnia, unspecified type G47.00 Active 374106880 Problem Type 2 diabetes mellitus without complication, without long-term current use of insulin E11.9 Active 513586799 Problem Gastroesophageal reflux disease without esophagitis K21.9 Active 950036753 Problem Other chronic pain G89.29 Active 68644523 Problem Psychosis, unspecified psychosis type F29 Active 66560380 Problem Fibromyalgia M79.7 Active 453718140 Problem Nicotine abuse Z72.0 Active 71577716 Problem Irritable bowel syndrome with diarrhea K58.0 Active 141893101 Problem Chronic pain disorder G89.4 Active 153312518 Problem Meniere disease, unspecified laterality H81.09 Active 82616944 ALLERGIES No Information ENCOUNTERS Encounter Location Date Diagnosis [facility] [address] [facility] [id number] [address] Oct, Lumbar disc disease M51.9 [facility] [address] [id number] [address] 16 Oct, [facility] [address] [place] [id number] Oct, Polyneuropathy associated with underlying disease G63 ; Type 2 diabetes mellitus without complication, without long-term current use of insulin E11.9 and Family history of CVA Z82.3 [place] [address] [address] Sep, Lumbar disc disease M51.9 [place] [id number] [place] [address]- [address] Sep, [place] [id number] [place] [address] 25863- 7831 August, Lumbar disc disease M51.9 [place] [id number] [place] [address] 41878- 9003 August, [facility] [address] [place] [id number] August, Meniere''s disease, unspecified laterality H81.09 and Type 2 diabetes mellitus without complication, without long-term current use of insulin E11.9 [place] [address] [place] [address]76- 5[address] August, BMI 40.0-44.9, adult Z68.41 and Anxiety F41.9 [place] [address] [place] [address] 37906- 9373 Jul, Lumbar disc disease M51.9 [place] [id number] [place] [address] 19706- 9709 Jul, Generalized anxiety disorder F41.1 [place] [address] [place] [address] 72204- 1385 Jul, [place] [address] [place] [address] 81873- 0963 Jul, Lumbar disc disease M51.9 [facility] [address] [place] [id number] Jun, Urinary tract infection without hematuria, site unspecified N39.0 ; Bilateral impacted cerumen H61.23 ; Loose stools R19.5 and Type 2 diabetes mellitus without complication, without long-term current use of insulin E11.9 [place] [id number] [place] [address]68984- 2476 Jun, [facility] [address] [address] 15 Jun, 2017 Fibromyalgia M79.7 [facility] [address] [id number] 12 Jun, 2017 Breast mass, right N63.10 [facility] [address] [address] 09 Jun, 2017 Breast mass, right N63.10 [facility] [address] [place] [address] Jun, Breast mass, right N63.10 ; Type 2 diabetes mellitus without complication , without long-term current use of insulin E11.9 and Fibromyalgia M79.7 [facility] [address] [id number] [address] Jun, Gastroesophageal reflux disease without esophagitis K21.9 [facility] [id number] [place] [address] Jun, Lumbar disc disease M51.9 [facility] [address] [id number] [address] 2546 May, [facility] [id number] [place] [address] May, [facility] [id number] [place] [address] May, [facility] [id number] [place] [id number] May, Lumbar disc disease M51.9 [facility] [id number] [place] [address] Apr, [facility] [address] [place] [address] Apr, Viral upper respiratory tract infection J06.9 and Impacted cerumen, bilateral H61.23 [facility] [id number] [place] [address] Apr, [facility] [address] [facility] [id number] [address] Apr, [facility] [id number] [place] [address] Apr, Lumbar disc disease M51.9 [facility] [address] [place] [id number] Mar, Lumbar disc disease M51.9 and Fibromyalgia M79.7 [facility] [address] [facility] [id number] [place] [address] Mar, [facility] [address] [id number] [place] [id number] Feb, [facility] [place] [address] [id number] [address] Jan, Type 2 diabetes mellitus without complication, without long- term current use of insulin E11.9 [facility] [address] [place] [id number] Jan, Type 2 diabetes mellitus without complication, without long-term current use of insulin E11.9 ; Fibromyalgia M79.7 and Lumbar disc disease M51.9 [facility] [address] [id number] [address] Jan, [facility] [address] [id number] [address] Jan, [facility] [address] [facility] [id number] [place] [address] Dec, [facility] [address] [id number] [place] [address] Dec, [facility] [address] [id number] [place] [address] Dec, [facility] [address] [id number] [place] [address] Nov, Pre-procedure lab exam Z01.812 [facility] [address] [id number] [address] Nov, Ventral hernia without obstruction or gangrene K43.9 [facility] [address] [id number] [place] [address] Nov, [facility] [address] [id number] [address] Nov, [facility] [address] [place] [address] Nov, Ventral hernia without obstruction or gangrene K43.9 [facility] [address] [place] [address] Nov, Fibromyalgia M79.7 and Polyneuropathy associated with underlying disease G63 [facility] [address] [facility] [id number] [address] Oct, [facility] [address] [id number] [address] Oct, [facility] [address] [id number] [address] Oct, [facility] [address] [id number] [place] [address] Oct, [facility] [address] [id number] [address] Sep, [facility] [address] [id number] [address] Sep, [facility] [address] [id number] [address] Sep, [facility] [address] [id number] [address] August, [facility] [address] [place] [address] August, Right medial knee pain M25.561 [facility] [address] [facility] [id number] [address] August, [facility] [address] [facility] [id number] [place] [address] August, [facility] [address] [id number] [place] [address]- [address] August, [facility] [place] [facility] [address] [id number] [place] [address] August, [facility] [place] [facility] [address] [facility] [id number] [place] [address]- 2546 August, [facility] [place] [facility] [address] [id number] [place] [address] August, [facility] [place] [facility] [address] [id number] [place] [address] Jul, [facility] [place] [facility] [address] [id number] [place] [address]- 2546 Jul, [facility] [place] [facility] [address] [id number] [address] Jul, [facility] [place] [facility] [address] [facility] [id number] [place] [address] 2546 Jun, [facility] [place] [facility] [address] [id number] [place] [address] 2546 Jun, [facility] [place] [facility] [address] [facility] [id number] [address]- 7206 May, [facility] [place] [facility] [address] [id number] [address]- 6246 May, [facility] [place] [facility] [address] [id number] [address]- 8826 May, [facility] [place] [facility] [address] [facility] [id number] [address] 2546 May, [facility] [place] [facility] [address] [facility] [id number] [address]- [address] Apr, [facility] [address] [place] [address] Apr, Upper respiratory infection with cough and congestion J06.9 [facility] [place] [facility] [address] [id number] [address] Apr, [facility] [id number] [address]- 5[address] Apr, [facility] [id number] [address]- 4551 Mar, [facility] [id number] [address]- 4571 Mar, [facility] [id number] [place] [address] 91979- 2816 Mar, Other chronic pain G89.29 [facility] [id number] [place] [address] 71863- 6773 Mar, [facility] [id number] [place] [address] 36879- 1806 Mar, [facility] [id number] [place] [address] 09892- 8802 Feb, [facility] [id number] [address]- 3767 Feb, [facility] [address] [place] [address] Feb, Insomnia, unspecified type G47.00 and Swelling of face R22.0 [facility] [id number] [address]- 3930 Feb, [facility] [id number] [address]- 8421 14 Feb, 2016 [facility] [id number] [address]- 0222 Feb, [facility] [id number] [address]- 7434 Feb, [facility] [id number] [address]- 4646 24 Jan, 2016 [facility] [id number] [place] [address] 67570- 1226 Jan, [facility] [address]005[address]100[place] [address]- 3453 Jan, Neurogenic bladder N31.9 [facility] [id number] [place] [address] 49135- 5153 Jan, [facility] [id number] [place] [address] 54202- 3666 Jan, [facility] [id number] [place] [address] 72793- 1414 Jan, [facility] [id number] [place] [address] 10438- 8378 Jan, [facility] [id number] [place] [address] 31059- 8037 Jan, Screening for breast cancer Z12.39 [facility] [id number] [place] [address] 74901- 1549 Jan, [facility] [address] [place] [address] 04097- 3510 Dec, Type 2 diabetes mellitus without complication, without long- term current use of insulin E11.9 ; Lumbar disc disease M51.9 ; Polyneuropathy associated with underlying disease G63 and Neurogenic bladder N31.9 [facility] [address] [address]- 5[address] 16 Dec, 2015 [facility] [id number] [place] [address] 11880- 3816 14 Dec, 2015 Other chronic pain G89.29 [facility] [id number] [place] [address] 11112- 0093 Dec, [facility] [id number] [place] [address] 45484- 7291 Nov, [facility] [address] [address]- 7288 Nov, [facility] [id number] [address]- 2852 Nov, Type 2 diabetes mellitus without complication, [...] anemia, unspecified iron deficiency anemia type D50.9 [facility] [id number] [address]- 8290 Nov, [facility] [address] [id number] [address]- 1776 Nov, [facility] [address] [id number] [address]- 9574 Nov, [facility] [address] [id number] [address]- 0050 Nov, [facility] [id number] [address]- 0968 Nov, [facility] [id number] [address]- 6955 Nov, [facility] [id number] [address]- 8537 Nov, [facility] [id number] [address]- 5855 Jul, [facility] [id number] [address]- 0939 Jul, [facility] [id number] [address]- 7288 August, [facility] [id number] [address]- 8029 Jun, [facility] [id number] [place] [address] [place] Oct, IMMUNIZATIONS No Known Immunizations SOCIAL HISTORY Never Assessed REASON FOR VISIT nausea PLAN OF CARE VITAL SIGNS MEDICATIONS Medication Instructions Dosage Frequency Start Date End Date Duration Status Zofran 4 MG Orally every 8 hrs as needed 1 tablet Jul, Active RESULTS No Results PROCEDURES No Known [...]
--- OUTSIDE RECORDS SUMMARY | 2018-01-22 14:15 | XMS REPORT ---
Author Author LAURIE MAHAJAN Organization [facility] Address [address] [place] [address] Care Team Providers Care Lining Cementer Name Role Phone LAURIE MAHAJAN Unavailable PROBLEMS Type Condition ICD9-CM Code JRM05-JP Code Onset Dates Condition Status SNOMED Code Problem Lumbar disc disease M51.9 Active 38322490 Problem Neurogenic bladder N31.9 Active 449283864 Problem Polyneuropathy associated with underlying disease G63 Active 817523819 Problem Anxiety F41.9 Active 28198909 Problem Generalized anxiety disorder F41.1 Active 92750339 Problem Insomnia, unspecified type G47.00 Active 424798108 Problem Type 2 diabetes mellitus without complication, without long-term current use of insulin E11.9 Active 042545706 Problem Gastroesophageal reflux disease without esophagitis K21.9 Active 952924551 Problem Other chronic pain G89.29 Active 13689033 Problem Psychosis, unspecified psychosis type F29 Active 86412432 Problem Fibromyalgia M79.7 Active 954721898 Problem Nicotine abuse Z72.0 Active 30540247 Problem Irritable bowel syndrome with diarrhea K58.0 Active 514482113 Problem Chronic pain disorder G89.4 Active 879874237 Problem Meniere disease, unspecified laterality H81.09 Active 04833409 ALLERGIES No Information ENCOUNTERS Encounter Location Date Diagnosis [facility] [address] [facility] [id number] [address] Oct, Lumbar disc disease M51.9 [facility] [address] [id number] [address] 16 Oct, [facility] [address] [place] [id number] Oct, Polyneuropathy associated with underlying disease G63 ; Type 2 diabetes mellitus without complication, without long-term current use of insulin E11.9 and Family history of CVA Z82.3 [place] [address] [address] Sep, Lumbar disc disease M51.9 [place] [id number] [place] [address] 26977- 7247 Sep, [place] [id number] [place] [address] 99130- 9632 August, Lumbar disc disease M51.9 [place] [id number] [place] [address] 96248- 1137 August, [facility] [address] [place] [id number] August, Meniere''s disease, unspecified laterality H81.09 and Type 2 diabetes mellitus without complication, without long-term current use of insulin E11.9 [place] [address] [place] [address] 16403- 9752 August, BMI 40.0-44.9, adult Z68.41 and Anxiety F41.9 [place] [address] [place] [address] 80462- 3056 Jul, Lumbar disc disease M51.9 [place] [id number] [place] [address] 75483- 2945 Jul, Generalized anxiety disorder F41.1 [place] [address] [place] [address] 18302- 2261 Jul, [place] [address] [place] [address] 11488- 3526 Jul, Lumbar disc disease M51.9 [facility] [address] [place] [id number] Jun, Urinary tract infection without hematuria, site unspecified N39.0 ; Bilateral impacted cerumen H61.23 ; Loose stools R19.5 and Type 2 diabetes mellitus without complication, without long-term current use of insulin E11.9 [place] [id number] [place] [address]- 2636 Jun, [facility] [address] [address] 15 Jun, 2017 Fibromyalgia M79.7 [facility] [address] [id number] [address] 12 Jun, 2017 Breast mass, right N63.10 [facility] [address] [address] 09 Jun, 2017 Breast mass, right N63.10 [facility] [address] [place] [id number] Jun, Breast mass, right N63.10 ; Type 2 diabetes mellitus without complication , without long-term current use of insulin E11.9 and Fibromyalgia M79.7 [facility] [address] [id number] [address] Jun, Gastroesophageal reflux disease without esophagitis K21.9 [facility] [id number] [place] [id number] Jun, Lumbar disc disease M51.9 [facility] [address] [id number] [address] 2546 May, [facility] [id number] [place] [address] May, [facility] [id number] [place] [id number] May, [facility] [id number] [place] [id number] May, Lumbar disc disease M51.9 [facility] [id number] [place]ENTER[place] [address] Apr, [facility] [address] [place] [id number] Apr, Viral upper respiratory tract infection J06.9 and Impacted cerumen, bilateral H61.23 [facility] [id number] [place]ENTER[place] [id number] Apr, [facility] [address] [facility] [id number] [address] Apr, [facility] [id number] [place] [address] Apr, Lumbar disc disease M51.9 [facility] [address] [place] [id number] Mar, Lumbar disc disease M51.9 and Fibromyalgia M79.7 [facility] [address] [facility] [id number] [place] [address] Mar, [facility] [address] [id number] [place] [id number] Feb, [facility] [address] [id number] [address] Jan, Type 2 diabetes mellitus without complication, without long- term current use of insulin E11.9 [facility] [address] [place] [id number] Jan, Type 2 diabetes mellitus without complication, without long-term current use of insulin E11.9 ; Fibromyalgia M79.7 and Lumbar disc disease M51.9 [facility] [address] [id number] [place] [address] Jan, [facility] [address] [id number] [place] [id number] Jan, [facility] [address] [facility] [id number] [place] [address] Dec, [facility] [address] [id number] [place]ENTER[place] [id number] Dec, [facility] [address] [id number] [place]ENTER[place] [id number] Dec, [facility] [address] [id number] [place] [address] Nov, Pre-procedure lab exam Z01.812 [facility] [address] [id number] [address] Nov, Ventral hernia without obstruction or gangrene K43.9 [facility] [address] [id number] [place] [id number] Nov, [facility] [address] [id number] [place] [id number] Nov, [facility] [address] [place] [address] Nov, Ventral hernia without obstruction or gangrene K43.9 [facility] [address] [place] [address] Nov, Fibromyalgia M79.7 and Polyneuropathy associated with underlying disease G63 [facility] [address] [facility] [id number] [address] Oct, [facility] [address] [id number] [place] [address] Oct, [facility] [address] [id number] [place] [id number] Oct, [facility] [address] [id number] [place] [address] Oct, [facility] [address] [id number] [place] [address] Sep, [facility] [address] [id number] [address] Sep, [facility] [address] [id number] [address] 30[address] Sep, [facility] [address] [id number] [address] August, [facility] [address] [address] August, Right medial knee pain M25.561 [facility] [address] [facility] [id number] [place] [address]- 7[address] August, [facility] [address] [facility] [id number] [place] [address]- 1267 August, [facility] [address] [id number] [place] [address]- [address] August, [facility] [place] [facility] [address] [id number] [place] [address] August, [facility] [place] [facility] [address] [facility] [id number] [address]- 2546 August, [facility] [place] [facility] [address] [id number] [place] [address] August, [facility] [place] [facility] [address] [id number] [place] [id number] Jul, [facility] [place] [facility] [address] [id number] [place] [address]- 2546 Jul, [facility] [place] [facility] [address] [id number] [place]ENTER[place] [address] Jul, [facility] [place] [facility] [address] [facility] [id number] [place] [address] 2546 Jun, [facility] [place] [facility] [address] [id number] [place] [address] 2546 Jun, [facility] [place] [facility] [address] [facility] [id number] [address]- 9016 May, [facility] [place] [facility] [address] [id number] [address]- 9736 May, [facility] [place] [facility] [address] [id number] [address]- 0916 May, [facility] [place] [facility] [address] [facility] [id number] [place] [address] 2546 May, [facility] [place] [facility] [address] [facility] [id number] [address]- 5316 Apr, [facility] [address] [id number] Apr, Upper respiratory infection with cough and congestion J06.9 [facility] [place] [facility] [address] [id number] [id number] Apr, [facility] [address]00565100[place] [address]- 87[address] Apr, [facility] [address]00565100[place] [address]- 3381 Mar, [facility] [address]00565100[place] [address]- 4550 Mar, [facility] [id number] [place] [address] 49691- 3758 Mar, Other chronic pain G89.29 [facility] [id number] [place] [address] 80089- 1740 Mar, [facility] [id number] [place] [address] 70369- 2167 Mar, [facility] [id number] [place] [address] 05757- 9258 Feb, [facility] [address]100[place] [address]- 68[address] Feb, [facility] [address] [id number] Feb, Insomnia, unspecified type G47.00 and Swelling of face R22.0 [facility] [address] [address]- 7278 Feb, [facility] [address]005[address]100[place] [address]- 9660 14 Feb, 2016 [facility] [address]005[address]100[place] [address]- 3805 Feb, [facility] [address]100[place] [address]- 8974 Feb, [facility] [address]100[place] [address]- 3015 24 Jan, 2016 [facility] [id number] [place] [address] 60090- 4439 Jan, [facility] [address] [address]- 9906 Jan, Neurogenic bladder N31.9 [facility] [id number] [place] [address] 51616- 8063 Jan, [facility] [id number] [place] [address] 71288- 4041 Jan, [facility] [id number] [place] [address] 27414- 7680 Jan, [facility] [id number] [place] [address] 23603- 2244 Jan, [facility] [id number] [place] [address] 36411- 9957 Jan, Screening for breast cancer Z12.39 [facility] [id number] [place] [address] 82391- 2911 Jan, [facility] [id number] [place] [address] 08241- 2308 Dec, Type 2 diabetes mellitus without complication, without long- term current use of insulin E11.9 ; Lumbar disc disease M51.9 ; Polyneuropathy associated with underlying disease G63 and Neurogenic bladder N31.9 [facility] [address] [address]- 0880 16 Dec, 2015 [facility] [id number] [place] [address] 73516- 8321 14 Dec, 2015 Other chronic pain G89.29 [facility] [id number] [place] [address] 15346- 4579 Dec, [facility] [id number] [place] [address] 80996- 6791 Nov, [facility] [address] [address]- 6[address] Nov, [facility] [address]005[address] [address]- 3248 Nov, Type 2 diabetes mellitus without complication, [...] anemia, unspecified iron deficiency anemia type D50.9 [facility] [address] [address]- 7715 Nov, [facility] [address] [id number] [address]- 3984 Nov, [facility] [address] [id number] [address]- 0051 Nov, [facility] [address] [id number] [address]- 0992 Nov, [facility] [address] [address]- 4797 Nov, [facility] [address] [address]- 0457 Nov, [facility] [address] [address]- 4351 Nov, [facility] [address] [address]- 6858 Jul, [facility] [address] [address]- 0397 Jul, [facility] [address] [address]- 6033 August, [facility] [address] [address]- 4384 Jun, [facility] [id number] [place] [address] [place] [address]- 6584 Oct, IMMUNIZATIONS No Known Immunizations SOCIAL HISTORY Never Assessed REASON FOR VISIT Controlled Med Refill PLAN OF CARE VITAL SIGNS MEDICATIONS Medication Instructions Dosage Frequency Start Date End Date Duration Status Hydrocodone-Acetaminophen 7.5-325 MG Orally 2 times a day 1 tablet 12h 30 Jul, 2017 28 days Active RESULTS No Results [...]
--- OUTSIDE RECORDS SUMMARY | 2018-01-22 14:15 | XMS REPORT ---
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 Name Role Phone LAURIE MAHAJAN Unavailable PROBLEMS Type Condition ICD9-CM Code ZQW83-GD Code Onset Dates Condition Status SNOMED Code Problem Lumbar disc disease M51.9 Active 83388544 Problem Neurogenic bladder N31.9 Active 794359235 Problem Polyneuropathy associated with underlying disease G63 Active 776022743 Problem Anxiety F41.9 Active 74389843 Problem Generalized anxiety disorder F41.1 Active 64518929 Problem Insomnia, unspecified type G47.00 Active 710387159 Problem Type 2 diabetes mellitus without complication, without long-term current use of insulin E11.9 Active 058208275 Problem Gastroesophageal reflux disease without esophagitis K21.9 Active 523987826 Problem Other chronic pain G89.29 Active 84754091 Problem Psychosis, unspecified psychosis type F29 Active 01652333 Problem Fibromyalgia M79.7 Active 345431161 Problem Nicotine abuse Z72.0 Active 36324598 Problem Irritable bowel syndrome with diarrhea K58.0 Active 069974618 Problem Chronic pain disorder G89.4 Active 335306519 Problem Meniere disease, unspecified laterality H81.09 Active 12301941 ALLERGIES No Information ENCOUNTERS Encounter Location Date Diagnosis [facility] [address] [facility] [id number] [address] Oct, Lumbar disc disease M51.9 [facility] [address] [id number] [address] 16 Oct, 2017 [facility] [address] [place] [id number] Oct, Polyneuropathy associated with underlying disease G63 ; Type 2 diabetes mellitus without complication, without long-term current use of insulin E11.9 and Family history of CVA Z82.3 [place] [address] [address] Sep, Lumbar disc disease M51.9 [place] [id number] [place] [address] Sep, [place] [address] [place] [address] 3916 August, Lumbar disc disease M51.9 [place] [id number] [place] [address] August, [facility] [address] [place] [id number] August, Meniere''s disease, unspecified laterality H81.09 and Type 2 diabetes mellitus without complication, without long-term current use of insulin E11.9 [place] [address] [place] [address]- 7967 August, BMI 40.0-44.9, adult Z68.41 and Anxiety F41.9 [place] [address] [place] [address]- 7640 Jul, Lumbar disc disease M51.9 [place] [id number] [place] [address]32- 2844 Jul, Generalized anxiety disorder F41.1 [place] [address] [place] [address] 759[address]- 8266 Jul, [place] [address] [place] [address] 83661- 4695 Jul, Lumbar disc disease M51.9 [facility] [address] [place] [id number] Jun, Urinary tract infection without hematuria, site unspecified N39.0 ; Bilateral impacted cerumen H61.23 ; Loose stools R19.5 and Type 2 diabetes mellitus without complication, without long-term current use of insulin E11.9 [place] [id number] [place] [address] Jun, [facility] [address] [address] 15 Jun, 2017 Fibromyalgia M79.7 [facility] [address] [id number] [address] 12 Jun, 2017 Breast mass, right N63.10 [facility] [address]100[place] [address] 09 Jun, 2017 Breast mass, right N63.10 [facility] [address] [place] [id number] Jun, Breast mass, right N63.10 ; Type 2 diabetes mellitus without complication , without long-term current use of insulin E11.9 and Fibromyalgia M79.7 [facility] [address] [id number] [address] Jun, Gastroesophageal reflux disease without esophagitis K21.9 [facility] [id number] [address] Jun, Lumbar disc disease M51.9 [facility] [address] [id number] [address] May, [facility] [id number] [address] May, [facility] [id number] [id number] May, [facility] [id number] [place] [id number] May, Lumbar disc disease M51.9 [facility] [id number] [address] Apr, [facility] [address] [place] [id number] Apr, Viral upper respiratory tract infection J06.9 and Impacted cerumen, bilateral H61.23 [facility] [id number][place] [id number] Apr, [facility] [address] [facility] [id number], [place] [address] Apr, [facility] [id number] [address] Apr, Lumbar disc disease M51.9 [facility] [address] [place] [id number] Mar, Lumbar disc disease M51.9 and Fibromyalgia M79.7 [facility] [address] [facility] [id number][place] [address] Mar, [facility] [address] [id number][place] [id number] Feb, [facility] [address] [id number] [address] Jan, Type 2 diabetes mellitus without complication, without long- term current use of insulin E11.9 [facility] [address] [place] [id number] Jan, Type 2 diabetes mellitus without complication, without long-term current use of insulin E11.9 ; Fibromyalgia M79.7 and Lumbar disc disease M51.9 [facility] [address] [id number] [address] Jan, [facility] [address] [id number] [address] Jan, [facility] [address] [facility] [id number] [address] Dec, [facility] [address] [id number], [place] [address] Dec, [facility] [address] [id number][place] [address] Dec, [facility] [address] [id number] [address] Nov, Pre-procedure lab exam Z01.812 [facility] [address] [id number] [address] Nov, Ventral hernia without obstruction or gangrene K43.9 [facility] [address] [id number], [place] [address] Nov, [facility] [address] [id number][place] [address] Nov, [facility] [address] [place] [id number] Nov, Ventral hernia without obstruction or gangrene K43.9 [facility] [address] [place] [address] Nov, Fibromyalgia M79.7 and Polyneuropathy associated with underlying disease G63 [facility] [address] [facility] [id number] [address] Oct, [facility] [address] [id number] [address] Oct, [facility] [address] [id number], [place] [address] Oct, [facility] [address] [id number][place] [address] Oct, [facility] [address] [id number][place] [address] Sep, [facility] [address] [id number] [address] Sep, [facility] [address] [id number] [address] Sep, [facility] [address] [id number], [place] [address] August, [facility] [address] [place] [address] August, Right medial knee pain M25.561 [facility] [address] [facility] [id number][place] [address] August, [facility] [address] [facility] [id number] [address] August, [facility] [address] [id number] [place] [address] August, [facility] [place] [facility] [address] [id number][place] [address] August, [facility] [place] [facility] [address] [facility] [id number] [place] [address]- [address] August, [facility] [place] [facility] [address] [id number][place] [address] August, [facility] [place] [facility] [address] [id number] [place] [id number] Jul, [facility] [place] [facility] [address] [id number] [place] [address]- [address] Jul, [facility] [place] [facility] [address] [id number] [address] Jul, [facility] [place] [facility] [address] [facility] [id number], [place] [address] 2546 Jun, [facility] [place] [facility] [address] [id number] [place] [address] 2546 Jun, [facility] [place] [facility] [address] [facility] [id number][place] [address]- 75[address] May, [facility] [place] [facility] [address] [id number] [address]- 7746 May, [facility] [place] [facility] [address] [id number], [place] [address]- 1376 May, [facility] [place] [facility] [address] [facility] [id number][place] [address] 2546 May, [facility] [place] [facility] [address] [facility] [id number][place] [address]- [address] Apr, [facility] [address] [place] [id number] Apr, Upper respiratory infection with cough and congestion J06.9 [facility] [place] [facility] [address] [id number] [address] Apr, [facility] [address]65100[place], [place] [address]- [address] Apr, [facility] [address]00565100[place], [place] [address]- 2476 Mar, [facility] [address]00565100[place], [place] [address]- 9237 Mar, [facility] [id number] [place] [address]- 8050 Mar, Other chronic pain G89.29 [facility] [id number] [place] [address]8549- 6938 Mar, [facility] [id number] [place] [address] 35648- 2776 Mar, [facility] [id number] [place] [address] 98687- 9556 Feb, [facility] [address]65100[place], [place] [address]- [address]60 Feb, [facility] [address] [place] [address] Feb, Insomnia, unspecified type G47.00 and Swelling of face R22.0 [facility] [address]65100[place], [place] [address]- 6[address] Feb, [facility] [address]65100[place], [place] [address]- 65[address] 14 Feb, 2016 [facility] [address]00565100[place], [place] [address]- 0[address] Feb, [facility] [address]65100[place], [place] [address]- 8980 Feb, [facility] [address]65100[place], [place] [address]- 2765 24 Jan, 2016 [facility] [id number] [place] [address] 00178- 3389 Jan, [facility] [address]65100[place], [place] [address]- 4156 Jan, Neurogenic bladder N31.9 [facility] [id number] [place] [address] 86859- 5825 Jan, [facility] [id number] [place] [address] 54123- 9274 Jan, [facility] [id number] [place] [address] 36449- 9068 Jan, [facility] [id number] [place] [address] 70162- 7910 Jan, [facility] [id number] [place] [address] 79597- 1382 Jan, Screening for breast cancer Z12.39 [facility] [id number] [place] [address] 62934- 7076 Jan, [facility] [address] [place] [address] 87814- 8720 Dec, Type 2 diabetes mellitus without complication, without long- term current use of insulin E11.9 ; Lumbar disc disease M51.9 ; Polyneuropathy associated with underlying disease G63 and Neurogenic bladder N31.9 [facility] [address], [place] [address]- 3480 16 Dec, 2015 [facility] [id number] [place] [address] 79676- 7625 14 Dec, 2015 Other chronic pain G89.29 [facility] [id number] [place] [address] 39351- 0131 Dec, [facility] [id number] [place] [address] 67191- 9483 Nov, [facility] [address], [place] [address]- 2082 Nov, [facility] [address]100[place], [place] [address]- 6438 Nov, Type 2 diabetes mellitus without complication, [...] anemia, unspecified iron deficiency anemia type D50.9 [facility] [address]65100[place], [place] [address]- 6995 Nov, [facility] [address] [id number], [place] [address]- 5788 Nov, [facility] [address] [id number], [place] [address]- 1288 Nov, [facility] [address] [id number], [place] [address]- 9984 Nov, [facility] [address]100[place], [place] [address]- 9601 Nov, [facility] [address]100[place], [place] [address]- 9173 Nov, [facility] [address]65100[place], [place] [address]- 9343 Nov, [facility] [address]100[place], [place] [address]- 6535 Jul, [facility] [address]100[place], [place] [address]- 4920 Jul, [facility] [address]100[place], [place] [address]- 4584 August, [facility] [address]100[place], [place] [address]- 0857 Jun, [facility] [id number] [place] [address] [place] [address] Oct, IMMUNIZATIONS No Known Immunizations SOCIAL HISTORY Never Assessed REASON FOR VISIT increased anxiety PLAN OF CARE VITAL SIGNS MEDICATIONS Unknown [...]
--- OUTSIDE RECORDS SUMMARY | 2018-01-22 14:16 | XMS REPORT ---
Author Author LAURIE MAHAJAN Organization [facility] Address [address] [place] [address] Care Team Providers Care German Tutor Name Role Phone LAURIE MAHAJAN Unavailable PROBLEMS Type Condition ICD9-CM Code ABM34-GQ Code Onset Dates Condition Status SNOMED Code Problem Lumbar disc disease M51.9 Active 20268402 Problem Neurogenic bladder N31.9 Active 816041363 Problem Polyneuropathy associated with underlying disease G63 Active 917267961 Problem Anxiety F41.9 Active 38552510 Problem Generalized anxiety disorder F41.1 Active 05445115 Problem Insomnia, unspecified type G47.00 Active 137949108 Problem Type 2 diabetes mellitus without complication, without long-term current use of insulin E11.9 Active 673053593 Problem Gastroesophageal reflux disease without esophagitis K21.9 Active 069175798 Problem Other chronic pain G89.29 Active 98998972 Problem Psychosis, unspecified psychosis type F29 Active 86943905 Problem Fibromyalgia M79.7 Active 024166826 Problem Nicotine abuse Z72.0 Active 47531979 Problem Irritable bowel syndrome with diarrhea K58.0 Active 185295094 Problem Chronic pain disorder G89.4 Active 957021774 Problem Meniere disease, unspecified laterality H81.09 Active 36278072 ALLERGIES No Information ENCOUNTERS Encounter Location Date Diagnosis [facility] [address] [facility] [id number] [address] Oct, Lumbar disc disease M51.9 [facility] [id number] [address] 16 Oct, 2017 [facility] [address] [place] [id number] Oct, Polyneuropathy associated with underlying disease G63 ; Type 2 diabetes mellitus without complication, without long-term current use of insulin E11.9 and Family history of CVA Z82.3 [address], [place] [address] Sep, Lumbar disc disease M51.9 [place] [id number] [place] [address] Sep, [address] [address] [place] [address]- 4810 August, Lumbar disc disease M51.9 [place] [id number] [place] [address]- 2616 August, [facility] [address] [place] [id number] August, Meniere''s disease, unspecified laterality H81.09 and Type 2 diabetes mellitus without complication, without long-term current use of insulin E11.9 [place] [address] [place] [address]- 4098 August, BMI 40.0-44.9, adult Z68.41 and Anxiety F41.9 [place] [address] [place] [address] 30848- 2049 Jul, Lumbar disc disease M51.9 [place] [id number] [place] [address]18- 8994 Jul, Generalized anxiety disorder F41.1 [place] [address] [place] [address]80- 2970 Jul, [place] [address] [place] [address] 82[address]- 9363 Jul, Lumbar disc disease M51.9 [facility] [address] [place] [id number] Jun, Urinary tract infection without hematuria, site unspecified N39.0 ; Bilateral impacted cerumen H61.23 ; Loose stools R19.5 and Type 2 diabetes mellitus without complication, without long-term current use of insulin E11.9 [place] [id number] [place] [address]- 0436 Jun, [facility] [address], [place] [address] 15 Jun, 2017 Fibromyalgia M79.7 [facility] [id number] [address] 12 Jun, 2017 Breast mass, right N63.10 [facility] [address], [place] [address] 09 Jun, 2017 Breast mass, right N63.10 [facility] [address] [place] [id number] Jun, Breast mass, right N63.10 ; Type 2 diabetes mellitus without complication , without long-term current use of insulin E11.9 and Fibromyalgia M79.7 [facility] [id number] [address] Jun, Gastroesophageal reflux disease without esophagitis K21.9 [facility] [id number] [address] Jun, Lumbar disc disease M51.9 [facility] [id number] [address] May, [facility] [id number] [address] May, [facility] [id number] [address] May, [facility] [id number] [place] [id number] May, Lumbar disc disease M51.9 [facility] [id number] [address] Apr, [facility] [employer] [address] [place] [id number] Apr, Viral upper respiratory tract infection J06.9 and Impacted cerumen, bilateral H61.23 [facility] [id number], [place] [address] Apr, [facility] [address] [facility] [id number], [place] [address] Apr, [facility] [id number], [place] [address] Apr, Lumbar disc disease M51.9 [facility] [address] [place] [address] Mar, Lumbar disc disease M51.9 and Fibromyalgia M79.7 [facility] [address] [facility] [id number], [place] [address] Mar, [facility] [address] [id number] [address] Feb, [facility] [id number] [address] Jan, Type 2 diabetes mellitus without complication, without long- term current use of insulin E11.9 [facility] [address] [place] [address] Jan, Type 2 diabetes mellitus without complication, without long-term current use of insulin E11.9 ; Fibromyalgia M79.7 and Lumbar disc disease M51.9 [facility] [address] [id number] [address] Jan, [facility] [address] [id number] [address] Jan, [facility] [address] [facility] [id number], [place] [address] Dec, [facility] [address] [id number], [place] [address] Dec, [facility] [address] [id number], [place] [address] Dec, [facility] [address] [id number] [address] Nov, Pre-procedure lab exam Z01.812 [facility] [id number] [address] Nov, Ventral hernia without obstruction or gangrene K43.9 [facility] [address] [id number] [address] Nov, [facility] [address] [id number] [address] Nov, [facility] [address] [place] [address] Nov, Ventral hernia without obstruction or gangrene K43.9 [facility] [address] [place] [address] Nov, Fibromyalgia M79.7 and Polyneuropathy associated with underlying disease G63 [facility] [address] [facility] [id number], [place] [address] Oct, [facility] [address] [id number], [place] [address] Oct, [facility] [address] [id number], [place] [address] Oct, [facility] [address] [id number], [place] [address] Oct, [facility] [address] [id number], [place] [address] Sep, [facility] [id number], [place] [address] Sep, [facility] [id number], [place] [address] Sep, [facility] [id number], [place] [address] August, [facility] [address] [place] [address] August, Right medial knee pain M25.561 [facility] [address] [facility] [id number], [place] [address] August, [facility] [address] [facility] [id number], [place] [address] August, [facility] [address] [id number] [place] [address] August, [facility] [place] [facility] [address] [id number] [address] August, [facility] [place] [facility] [address] [facility] [id number] [place] [address]- [address] August, [facility] [place] [facility] [address] [id number], [place] [address] August, [facility] [place] [facility] [address] [id number] [place] [id number] Jul, [facility] [place] [facility] [address] [id number] [place] [address]- [address]46 Jul, [facility] [place] [facility] [address] [id number], [place] [address] Jul, [facility] [place] [facility] [address] [facility] [id number], [place] [address] 2546 Jun, [facility] [place] [facility] [id number] [address] 2546 Jun, [facility] [place] [facility] [address] [facility] [id number], [place] [address]166 May, [facility] [place] [facility] [id number], [place] [address] 3126 May, [facility] [place] [facility] [address] [id number], [place] [address]- 9926 May, [facility] [place] [facility] [address] [facility] [id number], [place] [address] 2546 May, [facility] [place] [facility] [address] [facility] [id number], [place] [address]- 8[address] Apr, [facility] [address] [place] [address] Apr, Upper respiratory infection with cough and congestion J06.9 [facility] [place] [facility] [address] [id number] [address] Apr, [facility] [address]00565100[place], [place] [address]- [address] Apr, [facility] [address]00565100[place], [place] [address]- [address]28 Mar, [facility] [address]00565100[place], [place] [address]- 9656 Mar, [facility] [id number] [place] [address]2951- 4589 Mar, Other chronic pain G89.29 [facility] [id number] [place] [address] 96165- 9230 Mar, [facility] [id number] [place] [address] 47084- 8207 Mar, [facility] [id number] [place] [address] 15100- 4849 Feb, [facility] [address]00565100[place], [place] [address]- 8[address] Feb, [facility] [address] [place] [address] Feb, Insomnia, unspecified type G47.00 and Swelling of face R22.0 [facility] [address]00565100[place], [place] [address]- 8119 Feb, [facility] [address]00565100[place], [place] [address]- 0122 14 Feb, 2016 [facility] [address]00565100[place], [place] [address]- 9420 Feb, [facility] [address]65100[place], [place] [address]- 8869 Feb, [facility] [address]65[address], [place] [address]- 3[address] 24 Jan, 2016 [facility] [id number] [place] [address] 99536- 2927 Jan, [facility] [address]65100[place], [place] [address]- 5698 Jan, Neurogenic bladder N31.9 [facility] [id number] [place] [address] 49085- 4281 Jan, [facility] [id number] [place] [address] 99559- 9385 Jan, [facility] [id number] [place] [address] 06135- 1345 Jan, [facility] [id number] [place] [address] 35255- 1375 Jan, [facility] [id number] [place] [address] 44609- 3408 Jan, Screening for breast cancer Z12.39 [facility] [id number] [place] [address] 38288- 6302 Jan, [facility] [address] [place] [address] 65584- 2253 Dec, Type 2 diabetes mellitus without complication, without long- term current use of insulin E11.9 ; Lumbar disc disease M51.9 ; Polyneuropathy associated with underlying disease G63 and Neurogenic bladder N31.9 [facility] [address], [place] [address]- [address]64 16 Dec, 2015 [facility] [id number] [place] [address] 11540- 6165 14 Dec, 2015 Other chronic pain G89.29 [facility] [id number] [place] [address] 80187- 0197 Dec, [facility] [id number] [place] [address] 89646- 8226 Nov, [facility] [address], [place] [address]- 8452 Nov, [facility] [address], [place] [address]- 7956 Nov, Type 2 diabetes mellitus without complication, [...] anemia, unspecified iron deficiency anemia type D50.9 [facility] [address]65100[place], [place] [address]- 5578 Nov, [facility] [address] [id number], [place] [address]- 9648 Nov, [facility] [address] [id number], [place] [address]- 0914 Nov, [facility] [address] [id number], [place] [address]- 2047 Nov, [facility] [address]100[place], [place] [address]- 3830 Nov, [facility] [address], [place] [address]- 5020 Nov, [facility] [address]100[place], [place] [address]- 2833 Nov, [facility] [address], [place] [address]- 4189 Jul, [facility] [address], [place] [address]- 1495 Jul, [facility] [address], [place] [address]- 6899 August, [facility] [address], [place] [address]- 4585 Jun, [facility] [id number] [place] [address] [place] [address] 0557 Oct, IMMUNIZATIONS No Known Immunizations SOCIAL HISTORY Never Assessed REASON FOR VISIT Controlled Med Refill PLAN OF CARE VITAL SIGNS MEDICATIONS Medication Instructions Dosage Frequency Start Date End Date Duration Status Hydrocodone-Acetaminophen 7.5-325 MG Orally 2 times a day 1 tablet 12h Jul, 28 days Active RESULTS No Results PROCEDURES [...]
--- OUTSIDE RECORDS SUMMARY | 2018-01-22 14:16 | XMS REPORT ---
Author Author ROWENA RODRIGUEZ Organization [facility] Address [address] [place] [address] Care Team Providers Care Complaint Inspector Name Role Phone ROWENA RODRIGUEZ Unavailable PROBLEMS Type Condition ICD9-CM Code KWT06-LR Code Onset Dates Condition Status SNOMED Code Problem Lumbar disc disease M51.9 Active 82254445 Problem Neurogenic bladder N31.9 Active 678336780 Problem Polyneuropathy associated with underlying disease G63 Active 115599914 Problem Anxiety F41.9 Active 30157239 Problem Generalized anxiety disorder F41.1 Active 12094864 Problem Insomnia, unspecified type G47.00 Active 299638181 Problem Type 2 diabetes mellitus without complication, without long-term current use of insulin E11.9 Active 625297970 Problem Gastroesophageal reflux disease without esophagitis K21.9 Active 781855924 Problem Other chronic pain G89.29 Active 67094019 Problem Psychosis, unspecified psychosis type F29 Active 68424671 Problem Fibromyalgia M79.7 Active 971295738 Problem Nicotine abuse Z72.0 Active 96332168 Problem Irritable bowel syndrome with diarrhea K58.0 Active 843488926 Problem Chronic pain disorder G89.4 Active 455633569 Problem Meniere disease, unspecified laterality H81.09 Active 31642705 ALLERGIES No Information ENCOUNTERS Encounter Location Date Diagnosis [facility] [address] [facility] [id number] [address] Oct, [facility] [address] [place] [id number] Oct, Polyneuropathy associated with underlying disease G63 ; Type 2 diabetes mellitus without complication, without long-term current use of insulin E11.9 and Family history of CVA Z82.3 [facility] [id number] [place] [address]77- 5534 Sep, Lumbar disc disease M51.9 [place] [address] [place] [address] 89840- 8395 Sep, [place] [id number] [place] [address] 33714- 1620 August, Lumbar disc disease M51.9 [place] [id number] [place] [address] 50153- [address] August, [facility] [address] [place] [id number] August, Meniere''s disease, unspecified laterality H81.09 and Type 2 diabetes mellitus without complication, without long-term current use of insulin E11.9 [place] [id number] [place] [address] 80209- 0038 August, BMI 40.0-44.9, adult Z68.41 and Anxiety F41.9 [place] [id number] [place] [address] 46205- 4968 Jul, Lumbar disc disease M51.9 [place] [id number] [place] [address] 22858- 4210 Jul, Generalized anxiety disorder F41.1 [place] [id number] [place] [address] 66602- 9754 Jul, [place] [address] [place] [address] 71198- 2184 Jul, Lumbar disc disease M51.9 [facility] [address] [place] [id number] Jun, Urinary tract infection without hematuria, site unspecified N39.0 ; Bilateral impacted cerumen H61.23 ; Loose stools R19.5 and Type 2 diabetes mellitus without complication, without long-term current use of insulin E11.9 [place] [address] [place] [address] 97332- 3813 Jun, [place] [id number] [place] [address] 36899- 3204 15 Jun, 2017 Fibromyalgia M79.7 [facility] [address] [id number] [address] 12 Jun, 2017 Breast mass, right N63.10 [facility] [address] [address] 09 Jun, 2017 Breast mass, right N63.10 [facility] [address] [place] [id number] 08 Jun, 2017 Breast mass, right N63.10 ; Type 2 diabetes mellitus without complication , without long-term current use of insulin E11.9 and Fibromyalgia M79.7 [facility] [address] [place] [address] 12116- 5107 Jun, Gastroesophageal reflux disease without esophagitis K21.9 [facility] [id number] [id number] Jun, Lumbar disc disease M51.9 [facility] [address] [address] May, [facility] [id number] [place] [address] [id number] May, [facility] [id number] [place] [address] [id number] May, [facility] [id number] [place] [address] [id number] May, Lumbar disc disease M51.9 [facility] [address] [id number] [id number] Apr, [facility] [address] [place] [id number] Apr, Viral upper respiratory tract infection J06.9 and Impacted cerumen, bilateral H61.23 [facility] [id number] [id number] Apr, [facility] [address] [place] [address] 87798- 8256 Apr, [facility] [address] [id number] [address] Apr, [facility]bar disc disease M51.9 [facility] [address] [place] [id number] Mar, Lumbar disc disease M51.9 and Fibromyalgia M79.7 [facility] [address] [facility] [id number], [place] [address] Mar, [facility] [address] [id number] [id number] Feb, [facility] [address] [facility] [id number] [address] Jan, Type 2 diabetes mellitus without complication, without long- term current use of insulin E11.9 [facility] [address] [place] [id number] Jan, Type 2 diabetes mellitus without complication, without long-term current use of insulin E11.9 ; Fibromyalgia M79.7 and Lumbar disc disease M51.9 [facility] [address] [id number] [id number] Jan, [facility] [address] [id number] [id number] Jan, [facility] [address] [id number] [address] Dec, [facility] [address] [id number] [id number] Dec, [facility] [address] [id number] [id number] Dec, [facility] [address] [id number] [id number] Nov, Pre-procedure lab exam Z01.812 [facility] [address] [id number] [address] Nov, Ventral hernia without obstruction or gangrene K43.9 [facility] [id number] [id number] Nov, [facility] [id number][place] [id number] Nov, [facility] [address] [place] [id number] Nov, Ventral hernia without obstruction or gangrene K43.9 [facility] [address] [place] [id number] Nov, Fibromyalgia M79.7 and Polyneuropathy associated with underlying disease G63 [facility] [address] [address] Oct, [facility] [id number] [place] [id number] Oct, [facility] [id number] [place] [address] [id number] Oct, [facility] [id number] [place] [address] [id number] Oct, [facility] [id number] [place] [address] [id number] Sep, [facility] [address], [place] [address] Sep, [facility] [address] [address] Sep, [facility] [address], [place] [address] August, [facility] [address] [place] [id number] August, Right medial knee pain M25.561 [facility] [address] [address] August, [facility] [address] [id number] [address] August, [facility] [address] [address] August, [facility] [address] [id number] [id number] August, [facility] [address], [place] [address] 2546 August, [facility] [address] [id number] [id number] August, [facility] [id number] [place] [address] [id number] Jul, [facility] [address] [facility] [id number], [place] [address] Jul, [facility] [id number] [place] [address] [id number] Jul, [facility] [address], [place] [address] 2546 Jun, [facility] [address] [address]- 2546 Jun, [facility] [address], [place] [address] 6[address] May, [facility] [address] [address]- 2546 May, [facility] [address], [place] [address]- 2546 May, [facility] [address] [address]- 2546 May, [facility] [id number] [address]46 Apr, [facility] [address] [id number] Apr, Upper respiratory infection with cough and congestion J06.9 [facility] [id number] [id number] Apr, [facility] [id number] [place] [address] 50950- 9029 Apr, [facility] [address], [place] [address] 9846 Mar, [facility] [id number] [place] [address] 03312- 1773 Mar, [facility] [id number] [place] [address] 35061- 4755 Mar, Other chronic pain G89.29 [facility] [id number] [place] [address] 51881- 2246 Mar, [facility] [id number] [place] [address] 91770- 5434 Mar, [facility] [id number] [place] [address] 46557- 0787 Feb, [facility] [id number] [place] [address] 04436- 9787 Feb, [facility] [address] [id number] Feb, Insomnia, unspecified type G47.00 and Swelling of face R22.0 [facility] [address], [place] [address]- 1674 Feb, [facility] [address], [place] [address]- 6954 14 Feb, 2016 [facility] [id number] [place] [address] 50054- 5033 Feb, [facility] [address], [place] [address]- 9568 Feb, [facility] [id number] [place] [address] 45602- 0220 24 Jan, 2016 [facility] [address] [address]- 6342 Jan, [facility] [id number] [place] [address] 02896- 6929 Jan, Neurogenic bladder N31.9 [facility] [address] [address]- 5091 Jan, [facility] [address] [address]- 2012 Jan, [facility] [id number] [place] [address] 32922- 8102 Jan, [facility] [id number] [place] [address] 95102- 9729 Jan, [facility] [id number] [place] [address] 19039- 6950 Jan, Screening for breast cancer Z12.39 [facility] [id number] [place] [address] 68325- 4161 Jan, [facility] [id number] [place] [address] 43877- 5292 Dec, Type 2 diabetes mellitus without complication, without long- term current use of insulin E11.9 ; Lumbar disc disease M51.9 ; Polyneuropathy associated with underlying disease G63 and Neurogenic bladder N31.9 [facility] [address] [address]- 2116 16 Dec, 2015 [facility] [address] [address]- 6453 14 Dec, 2015 Other chronic pain G89.29 [facility] [address] [address]- 1886 Dec, [facility] [address], [place] [address]- 2226 Nov, [facility] [address], [place] [address]- 4066 Nov, [facility] [address], [place] [address]- 2527 Nov, Type 2 diabetes mellitus without complication, [...] unspecified iron deficiency anemia type D50.9 [facility] [id number], [place] [address]- 6890 Nov, [facility] [id number], [place] [address]- 9964 Nov, [facility] [id number] [place] [address] 24820- 4340 Nov, [facility] [id number] [place] [address] 11095- 9051 Nov, [facility] [id number] [place] [address] 29523- 4853 Nov, [facility] [address], [place] [address]- 4942 Nov, [facility] [address], [place] [address]- 3149 Nov, [facility] [address], [place] [address]- 9543 Jul, [facility] [address], [place] [address]- 8631 Jul, [facility] [address], [place] [address]- 3170 August, [facility] [id number] [address]- 3621 Jun, [facility] [address], [place] [address]- 1469 Oct, IMMUNIZATIONS No Known Immunizations SOCIAL HISTORY Never Assessed REASON FOR VISIT UA Culture results PLAN OF CARE VITAL SIGNS MEDICATIONS Medication Instructions Dosage Frequency Start Date End Date Duration Status Keflex 500 mg Orally every 12 hrs 1 capsule 12h Jun, Jun, 07 days Active RESULTS No Results PROCEDURES [...]
--- OUTSIDE RECORDS SUMMARY | 2018-01-22 14:16 | XMS REPORT ---
Author Author LAURIE MAHAJAN Organization [facility] Address [address] [place] [address] Care Team Providers Care Control Tower Radio Operator Name Role Phone LAURIE MAHAJAN Unavailable PROBLEMS Type Condition ICD9-CM Code FAT07-OX Code Onset Dates Condition Status SNOMED Code Problem Lumbar disc disease M51.9 Active 17003219 Problem Neurogenic bladder N31.9 Active 515395530 Problem Polyneuropathy associated with underlying disease G63 Active 982923579 Problem Anxiety F41.9 Active 82107474 Problem Generalized anxiety disorder F41.1 Active 48061655 Problem Insomnia, unspecified type G47.00 Active 810886779 Problem Type 2 diabetes mellitus without complication, without long-term current use of insulin E11.9 Active 511542121 Problem Gastroesophageal reflux disease without esophagitis K21.9 Active 300648811 Problem Other chronic pain G89.29 Active 53840446 Problem Psychosis, unspecified psychosis type F29 Active 50748758 Problem Fibromyalgia M79.7 Active 721408759 Problem Nicotine abuse Z72.0 Active 81475756 Problem Irritable bowel syndrome with diarrhea K58.0 Active 520246877 Problem Chronic pain disorder G89.4 Active 635797599 Problem Meniere disease, unspecified laterality H81.09 Active 18171852 ALLERGIES No Information ENCOUNTERS Encounter Location Date Diagnosis [facility] [address] [facility] [id number], [place] [address] Oct, [facility] [address] [place], [place] [id number] Oct, Polyneuropathy associated with underlying disease G63 ; Type 2 diabetes mellitus without complication, without long-term current use of insulin E11.9 and Family history of CVA Z82.3 [facility] [address] [id number] [address] Sep, Lumbar disc disease M51.9 [place] [address] [place] [address] 63393- 0294 Sep, [place] [id number] [place] [address] 36962- 1072 August, Lumbar disc disease M51.9 [place] [id number] [place] [address] 72690- 0784 August, [facility] [address] [place] [id number] August, Meniere''s disease, unspecified laterality H81.09 and Type 2 diabetes mellitus without complication, without long-term current use of insulin E11.9 [place] [id number] [place] [address] 45030- 4120 August, BMI 40.0-44.9, adult Z68.41 and Anxiety F41.9 [place] [id number] [place] [address] 27521- 9164 Jul, Lumbar disc disease M51.9 [place] [id number] [place] [address] 76786- 6665 Jul, Generalized anxiety disorder F41.1 [place] [id number] [place] [address] 52256- 8380 Jul, [place] [address] [place] [address] 63213- 2551 Jul, Lumbar disc disease M51.9 [facility] [address] [place] [id number] Jun, Urinary tract infection without hematuria, site unspecified N39.0 ; Bilateral impacted cerumen H61.23 ; Loose stools R19.5 and Type 2 diabetes mellitus without complication, without long-term current use of insulin E11.9 [place] [address] [place] [address] 56244- 2197 Jun, [place] [id number] [place] [address] 97778- 6162 15 Jun, 2017 Fibromyalgia M79.7 [facility] [address], [place] [address] 12 Jun, 2017 Breast mass, right N63.10 [facility] [address] [address] 09 Jun, 2017 Breast mass, right N63.10 [facility] [address] [place] [id number] 08 Jun, 2017 Breast mass, right N63.10 ; Type 2 diabetes mellitus without complication , without long-term current use of insulin E11.9 and Fibromyalgia M79.7 [facility] [address], [place] [address] Jun, Gastroesophageal reflux disease without esophagitis K21.9 [facility] [address] [id number] [id number] Jun, Lumbar disc disease M51.9 [facility] [address], [place] [address] May, [facility] [place] [id number] [place] [id number] May, [facility] [place] [id number] [place] [id number] May, [facility] [place] [address] [id number] [id number] May, Lumbar disc disease M51.9 [facility] [place] [id number] [place] [id number] Apr, [facility] [address] [place] [id number] Apr, Viral upper respiratory tract infection J06.9 and Impacted cerumen, bilateral H61.23 [facility] [place] [id number] [id number] Apr, [facility] [address] [id number] [address] Apr, [facility] [address] [id number] [id number] Apr, Lumbar disc disease M51.9 [place] [address] [place] [id number] Mar, Lumbar disc disease M51.9 and Fibromyalgia M79.7 [facility] [address] [facility] [id number], [place] [address] Mar, [facility] [address] [id number][place] [id number] Feb, [facility] [address] [facility] [id number], [place] [address] Jan, Type 2 diabetes mellitus without complication, without long- term current use of insulin E11.9 [place] [address] [place] [id number] Jan, Type 2 diabetes mellitus without complication, without long-term current use of insulin E11.9 ; Fibromyalgia M79.7 and Lumbar disc disease M51.9 [facility] [address] [id number] [id number] Jan, [facility] [address] [id number] [id number] Jan, [facility] [address] [facility] [id number], [place] [address] Dec, [facility] [address] [id number][place] [id number] Dec, [facility] [address] [id number][place] [id number] Dec, [facility] [address] [id number][place] [id number] Nov, Pre-procedure lab exam Z01.812 [facility] [address] [id number][place] [address] Nov, Ventral hernia without obstruction or gangrene K43.9 [facility] [address] [id number][place] [id number] Nov, [facility] [address] [id number] [id number] Nov, [facility] [address] [place] [id number] Nov, Ventral hernia without obstruction or gangrene K43.9 [facility] [address] [place] [address] Nov, Fibromyalgia M79.7 and Polyneuropathy associated with underlying disease G63 [facility] [address] [facility] [id number], [place] [address] Oct, [facility] [address] [id number] [id number] Oct, [facility] [address] [place]358365[place] [id number] Oct, [facility] [address] [place]358[place] [id number] Oct, [facility] [id number] [id number] Sep, [facility] [address] [id number], [place] [address] Sep, [facility] [address], [place] [address] Sep, [facility] [address] [id number], [place] [address] August, [facility] [address] [place] [id number] August, Right medial knee pain M25.561 [facility] [address] [facility] [id number], [place] [address] August, [facility] [address] [facility] [id number], [place] [address] August, [facility] [id number], [place] [address] August, [facility] [place] [facility] [address] [id number] [id number] August, [facility] [address] [facility] [id number] [place] [address] August, [facility] [place] [facility] [address] [id number] [id number] August, [facility] [place] [facility] [address] [id number], [place] [id number] Jul, [facility] [place] [facility] [address] [facility] [id number], [place] [address] Jul, [facility] [place] [facility] [address] [id number], [place] [id number] Jul, [facility] [place] [facility] [address] [id number], [place] [address] Jun, [facility] [place] [facility] [address], [place] [address] Jun, [facility] [place] [facility] [address] [id number], [place] [address] May, [facility] [place] [facility] [address], [place] [address] May, [facility] [address] [id number], [place] [address] May, [facility] [address] [id number], [place] [address] 2546 May, [facility] [address] [id number], [place] [address] Apr, [facility] [address] [place] [id number] Apr, Upper respiratory infection with cough and congestion J06.9 [facility] [place] [facility] [id number] [id number] Apr, [facility] [address] [id number], [place] [address] Apr, [facility] [address]65[address], [place] [address] Mar, [facility] [address] [place] [address] 81210- 5517 Mar, [facility] [id number] [place] [address] 37978- 8648 Mar, Other chronic pain G89.29 [facility] [id number] [place] [address] 16395- 7551 Mar, [facility] [id number] [place] [address] 25332- 9341 Mar, [facility] [id number] [place] [address] 21974- 7879 29 Feb, 2016 [facility] [id number] [place] [address] 24903- 4665 Feb, [facility] [address] [place] [id number] Feb, Insomnia, unspecified type G47.00 and Swelling of face R22.0 [facility] [address] [place] [address] 53284- 1567 16 Feb, 2016 [facility] [address] [place] [address] 59421- 4593 14 Feb, 2016 [facility] [address]65[address], [place] [address]- 1374 07 Feb, 2016 [facility] [address], [place] [address]- 9657 02 Feb, 2016 [facility] [address] [place] [address] 68100- 6164 24 Jan, 2016 [facility] [address], [place] [address]- 5121 17 Jan, 2016 [facility] [address] [place] [address] 84669- 8590 Jan, Neurogenic bladder N31.9 [facility] [address]65[address], [place] [address] Jan, [facility] [id number] [place] [address] 71943- 6220 Jan, [facility] [id number] [place] [address] 10404- 5082 Jan, [facility] [id number] [place] [address] 46348- 4218 Jan, [facility] [id number] [place] [address] 87319- 6957 Jan, Screening for breast cancer Z12.39 [place] [id number] [place] [address] 64571- 4535 Jan, [facility] [id number] [place] [address] 42148- 2046 Dec, Type 2 diabetes mellitus without complication, without long- term current use of insulin E11.9 ; Lumbar disc disease M51.9 ; Polyneuropathy associated with underlying disease G63 and Neurogenic bladder N31.9 [place] [id number] [place] [address] 90146- 3623 16 Dec, 2015 [place] [id number] [place] [address] 81876- 5782 14 Dec, 2015 Other chronic pain G89.29 [facility] [address] [place] [address] 86960- 5470 Dec, [facility] [address], [place] [address]- 1642 Nov, [place] [id number] [place] [address] 99479- 4900 Nov, [facility] [address], [place] [address] Nov, Type 2 diabetes mellitus without complication, [...] anemia, unspecified iron deficiency anemia type D50.9 [facility] [id number] [place] [address] 04424- 5845 Nov, [facility] [id number] [place] [address] 72197- 7166 Nov, [facility] [id number] [place] [address] 90505- 9714 Nov, [facility] [id number] [place] [address] 41533- 7443 Nov, [facility] [id number] [place] [address] 40458- 9264 Nov, [facility] [id number] [place] [address] 88500- 0995 Nov, [facility] [id number] [place] [address] 84196- 8738 Nov, [facility] [address], [place] [address]- 2945 Jul, [facility] [address], [place] [address]- 0135 Jul, [facility] [address], [place] [address]- 5[address] August, [facility] [id number] [place] [address] 44653- 4720 Jun, [facility] [address], [place] [address] 0[address] Oct, IMMUNIZATIONS No Known Immunizations SOCIAL HISTORY Never Assessed REASON FOR VISIT Routine Visit PLAN OF CARE Activity Details Follow Up prn Reason: VITAL SIGNS MEDICATIONS Medication Instructions Dosage Frequency Start Date End Date Duration Status Atenolol 25 MG Orally Once a day 1 tablet 24h Active Lyrica 200 MG Orally 2 times a day 1 capsule 12h Active Chely-Tussin 100 MG/5ML Orally every 4 hrs 10 ml as needed 4h Active Furosemide 20 mg Orally Once a day 1 tablet 24h 30 Active Duloxetine HCl 30 MG Orally Once a day 3 tabs 24h Active Ziprasidone HCl 40 mg Orally Twice a day 2 tabs in the morning and 2 tabs in the morning 12h Active Metformin HCl 500 mg Orally Twice a day 2 tablet with meals 12h Active Ziprasidone HCl 20 MG TAKE 2 CAPSULES BY MOUTH EVERY MORNING AND TAKE 1 CAPSULE BY MOUTH EVERY EVENING 30 Active Victoza 18 MG/3ML Subcutaneous Once a day inject 1.8MG 24h 31 Active Albuterol Sulfate (2.5 MG/3ML) 0.083% Inhalation every 4 hrs 3 ml as needed 4h Active Milk of Magnesia Concentrate 2400 MG/10ML Orally daily 30ml as needed 24h Active Klor-Con M20 20 meq Orally 2 times a day 1 tablet with food 12h Active Nystatin 206174 UNIT/GM Externally Twice a day 1 application to affected area 12h Nov, Active Omeprazole-Sodium Bicarbonate 20-1100 MG Orally Once a day 1 capsule on an empty stomach 24h Jun, 30 day(s) Active Polysaccharide Iron Complex 150 MG Orally Twice a day 1 capsule 12h Active Glimepiride 4 MG Orally Once a day 1 tablet with breakfast or the first main meal of the day 24h Active Hydrocodone-Acetaminophen 7.5-325 MG Orally 2 times a day 1 tablet 12h Jun, 28 days Active Meclizine HCl 12.5 MG Orally every 6 hrs 2 tablets as needed 6h August, Active Hydrochlorothiazide 12.5 MG TAKE 1 CAPSULE BY MOUTH TWICE DAILY 30 Active RESULTS No Results PROCEDURES Procedure Date Ordered Result Body Site Minor complication (15 mins) June 10, 2017 INSTRUCTIONS MEDICATIONS ADMINISTERED No Known Medications [...]
--- OUTSIDE RECORDS SUMMARY | 2018-01-22 14:17 | XMS REPORT ---
Author Author LAURIE MAHAJAN Organization [facility] Address [address] [place] [address] Care Team Providers Care [employer] Wiring Technician Name Role Phone LAURIE MAHAJAN Unavailable PROBLEMS Type Condition ICD9-CM Code OBW50-YV Code Onset Dates Condition Status SNOMED Code Problem Lumbar disc disease M51.9 Active 00156860 Problem Neurogenic bladder N31.9 Active 665945219 Problem Polyneuropathy associated with underlying disease G63 Active 332048429 Problem Anxiety F41.9 Active 54936438 Problem Generalized anxiety disorder F41.1 Active 71552097 Problem Insomnia, unspecified type G47.00 Active 147510226 Problem Type 2 diabetes mellitus without complication, without long-term current use of insulin E11.9 Active 848643143 Problem Gastroesophageal reflux disease without esophagitis K21.9 Active 956776265 Problem Other chronic pain G89.29 Active 85611016 Problem Psychosis, unspecified psychosis type F29 Active 62807377 Problem Fibromyalgia M79.7 Active 093544853 Problem Nicotine abuse Z72.0 Active 63708748 Problem Irritable bowel syndrome with diarrhea K58.0 Active 755774611 Problem Chronic pain disorder G89.4 Active 660808292 Problem Meniere disease, unspecified laterality H81.09 Active 79155002 ALLERGIES No Information ENCOUNTERS Encounter Location Date Diagnosis [facility] [address] [place], [place] [id number] Oct, Polyneuropathy associated with underlying disease G63 ; Type 2 diabetes mellitus without complication, without long-term current use of insulin E11.9 and Family history of CVA Z82.3 [facility] [address] [facility] [id number] [address] Sep, Lumbar disc disease M51.9 [facility] [address] [facility] [id number], [place] [address] Sep, [place] [address] [place] [address]82[address] 7435 August, Lumbar disc disease M51.9 [place] [address] [place] [id number] [place] [address] 20980- 2877 August, [facility] [address] [place] [id number] August, Meniere''s disease, unspecified laterality H81.09 and Type 2 diabetes mellitus without complication, without long-term current use of insulin E11.9 [place] [address] [place] [address] 68198- 6138 August, BMI 40.0-44.9, adult Z68.41 and Anxiety F41.9 [place] [address] [place] [id number] [place] [address] 63653- 4587 Jul, Lumbar disc disease M51.9 [place] [address] [id number] [place] [address] 23825- 2451 Jul, Generalized anxiety disorder F41.1 [place] [address] [place] [id number] [place] [address] 52453- 5350 Jul, [place] [address] [place] [id number] [place] [address] 50194- 6639 Jul, Lumbar disc disease M51.9 [facility] [address] [place] [id number] Jun, Urinary tract infection without hematuria, site unspecified N39.0 ; Bilateral impacted cerumen H61.23 ; Loose stools R19.5 and Type 2 diabetes mellitus without complication, without long-term current use of insulin E11.9 [place] [address] [place] [id number] [place] [address] 75817- 4675 Jun, [place] [address] [place] [id number] [place] [address] 60733- 0634 Jun, Fibromyalgia M79.7 [place] [address] [place] [id number] [place] [address] 36631- 2546 Jun, Breast mass, right N63.10 [facility] [address] [address] Jun, Breast mass, right N63.[address] [id number] Jun, Breast mass, right N63.10 ; Type 2 diabetes mellitus without complication , without long-term current use of insulin E11.9 and Fibromyalgia M79.7 [facility] [address] [place] [id number]- 4568 Jun, Gastroesophageal reflux disease without esophagitis K21.9 [facility] [address] [place] [id number] [place] [id number] Jun, Lumbar disc disease M51.9 [facility] [address] [place] [address] 81059- 4386 May, [facility] [address] [place] [id number] [place] [address] [id number] May, [facility] [address] [place] [id number] [place] [id number] May, [facility] [address] [place] [id number] [place] [id number] May, Lumbar disc disease M51.9 [facility] [address] [place] [address] [id number] [place] [id number] Apr, [address] [id number] Apr, Viral upper respiratory tract infection J06.9 and Impacted cerumen, bilateral H61.23 [facility] [address] [place] [address] [id number] [place] [address] [id number] Apr, [facility] [address] [place] [address] 74206- 1796 Apr, [facility] [address] [place] [address] [id number] [place] [address] [phone] Apr, Lumbar disc disease M51.9 [facility] [address] [place] [id number] Mar, Lumbar disc disease M51.9 and Fibromyalgia M79.7 [facility] [address] [facility] [id number], [place] [address] Mar, [facility] [id number] [id number] Feb, [facility] [address] [facility] [id number][place] [address] Jan, Type 2 diabetes mellitus without complication, without long- term current use of insulin E11.9 [facility] [address] [place] [id number] Jan, Type 2 diabetes mellitus without complication, without long-term current use of insulin E11.9 ; Fibromyalgia M79.7 and Lumbar disc disease M51.9 [facility] [id number][place] [id number] Jan, [facility] [address] [place] [id number] [id number] Jan, [facility] [address] [place] [address] [id number] [address] Dec, [facility] [id number][place] [id number] Dec, [facility] [address] [place] [address] [id number][place] [id number] Dec, [facility] [address] [place] [id number][place] [address] Nov, Pre-procedure lab exam Z01.812 [facility] [address] [place] [address] [id number], [place] [address] Nov, Ventral hernia without obstruction or gangrene K43.9 [facility] [address] [place] [id number][place] [id number] Nov, [facility] [address] [place] [id number], [place] [id number] Nov, [facility] [address] [place] [id number] Nov, Ventral hernia without obstruction or gangrene K43.9 [facility] [address] [facility] [id number] Nov, Fibromyalgia M79.7 and Polyneuropathy associated with underlying disease G63 [facility] [address] [facility] [id number], [place] [address] Oct, [facility] [address] [place] [id number][place] [id number] Oct, [facility] [address] [place] [address] [id number] [place] [address] [id number] Oct, [facility] [address] [id number] [id number] Oct, [facility] [address] [place] [id number] [id number] Sep, [facility] [address] [id number], [place] [address] Sep, [facility] [address], [place] [address] Sep, [facility] [address] [id number], [place] [address] August, [facility] [address] [place] [id number] August, Right medial knee pain M25.561 [facility] [address] [facility] [id number], [place] [address] 8[address] August, [facility] [address] [facility] [id number], [place] [address] August, [facility] [address] [place] [address] [id number], [place] [address] 2546 August, [facility] [address] [place] [id number], [place] [id number] August, [facility] [address] [facility] [id number], [place] [address] August, [facility] [address] [id number] [place] [id number] August, [facility] [place] [facility] [address] [id number], [place] [id number] Jul, [facility] [address] [facility] [id number], [place] [address] Jul, [facility] [place] [facility] [address] [place] [id number], [place] [id number] Jul, [facility] [address] [facility] [id number] [place] [address] Jun, [facility] [address] [place] [address] [id number], [place] [address]- 8226 Jun, [facility] [address] [id number], [place] [address]- 9282 May, [facility] [address] [id number], [place] [address]- 8044 May, [facility] [address], [place] [address]- 0391 May, [facility] [address] [id number], [place] [address]- 9936 May, [facility] [address] [id number], [place] [address]- 6717 Apr, [facility] [address] [place] [id number] Apr, Upper respiratory infection with cough and congestion J06.9 [facility] [id number], [place] [id number] Apr, [facility] [address] [id number], [place] [address]- 7046 Apr, [facility] [address] [id number], [place] [address]- 2923 Mar, [facility] [address] [place] [address] 56081- 3662 Mar, [facility] [address] [place] [id number] [place] [address] 58068- 2631 Mar, Other chronic pain G89.29 [facility] [address] [place] [address] [id number] [place] [address] 16579- 1163 Mar, [facility] [address] [place] [address] [id number] [place] [address] 62924- 3699 05 Mar, 2016 [facility] [address] [address] [id number] [place] [address] 79760- 9644 Feb, [facility] [address] [place] [id number] [place] [address] 00838- 8153 Feb, [facility] [address] [place] [id number] Feb, Insomnia, unspecified type G47.00 and Swelling of face R22.0 [facility] [address] [place] [address] 09483- 2616 Feb, [facility] [address] [id number] [place] [address] 86662- 6391 Feb, [facility] [address] [place] [address] 43100- 0668 Feb, [facility] [address] [place] [address] 19493- 8054 Feb, [facility] [address] [place] [address] 88144- 7721 24 Jan, 2016 [facility] [address] [place] [id number] [place] [address] 75839- 1038 17 Jan, 2016 [facility] [address] [place] [address] 95489- 6568 14 Jan, 2016 Neurogenic bladder N31.9 [facility] [address] [place] [id number] [place] [address] 98756- 8297 Jan, [facility] [address], [place] [address]- 8338 Jan, [facility] [address], [place] [address]- 4662 Jan, [facility] [address], [place] [address]- 0367 Jan, [facility] [address] [place] [address] 15525- 3673 Jan, Screening for breast cancer Z12.39 [facility] [address] [place] [address] 88286- 1170 Jan, [facility] [address], [place] [address]- 2543 Dec, Type 2 diabetes mellitus without complication, without long- term current use of insulin E11.9 ; Lumbar disc disease M51.9 ; Polyneuropathy associated with underlying disease G63 and Neurogenic bladder N31.9 [facility] [address], [place] [address]- 5672 16 Dec, 2015 [facility] [address], [place] [address]- 9736 14 Dec, 2015 Other chronic pain G89.29 [facility] [address], [place] [address]- 1147 Dec, [facility] [address], [place] [address]- 8742 Nov, [facility] [address], [place] [address]- 3865 Nov, [facility] [address], [place] [address]- 2379 Nov, Type 2 diabetes mellitus without complication, [...] type D50.9 [facility] [address], [place] [address]- 1883 Nov, [facility] [address] [place] [id number] [place] [address] 77542- 4983 Nov, [facility] [address], [place] [address]- 3552 Nov, [facility] [address] [place] [id number] [place] [address] 22298- 6459 Nov, [facility] [address] [id number], [place] [address]- 3349 Nov, [facility] [address] [place] [id number] [place] [address] 46890- 0192 Nov, [facility] [address], [place] [address]- 6442 Nov, [facility] [address] [place] [id number] [place] [address] 77775- 2015 Jul, [facility] [address], [place] [address]- 0095 Jul, [facility] [address], [place] [address]- 5048 August, [facility] [address], [place] [address]- 8523 Jun, [facility] [address] [id number], [place] [address]- 3991 Oct, IMMUNIZATIONS No Known Immunizations SOCIAL HISTORY Never Assessed REASON FOR VISIT Mammogram Order Change PLAN OF CARE VITAL SIGNS MEDICATIONS No Known Medications RESULTS Name Result Date Reference Range Mammogram Dx, Bilateral 2017-06-21 PROCEDURES No Known procedures INSTRUCTIONS MEDICATIONS ADMINISTERED [...]
--- OUTSIDE RECORDS SUMMARY | 2018-01-22 14:17 | XMS REPORT ---
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 Phone LAURIE MAHAJAN Unavailable PROBLEMS Type Condition ICD9-CM Code [id number] Code Onset Dates Condition Status SNOMED Code Problem Lumbar disc disease M51.9 Active 98154177 Problem Neurogenic bladder N31.9 Active 863315201 Problem Polyneuropathy associated with underlying disease G63 Active 677295181 Problem Anxiety F41.9 Active 31735241 Problem Generalized anxiety disorder F41.1 Active 85590994 Problem Insomnia, unspecified type G47.00 Active 229467857 Problem Type 2 diabetes mellitus without complication, without long-term current use of insulin E11.9 Active 421905767 Problem Gastroesophageal reflux disease without esophagitis K21.9 Active 647868366 Problem Other chronic pain G89.29 Active 99125807 Problem Psychosis, unspecified psychosis type F29 Active 24270392 Problem Fibromyalgia M79.7 Active 845677349 Problem Nicotine abuse Z72.0 Active 48786027 Problem Irritable bowel syndrome with diarrhea K58.0 Active 609732157 Problem Chronic pain disorder G89.4 Active 465770851 Problem Meniere disease, unspecified laterality H81.09 Active [id number] ALLERGIES No Information ENCOUNTERS Encounter Location Date Diagnosis [facility] [address] [facility] [id number] [address] Oct, [facility] [address] [place] [id number] Oct, Polyneuropathy associated with underlying disease G63 ; Type 2 diabetes mellitus without complication, without long-term current use of insulin E11.9 and Family history of CVA Z82.3 [facility] [address] [id number] [address] Sep, Lumbar disc disease M51.9 [place] [id number] [place] [address]30- 6369 Sep, [place] [id number] [place] [address] 56283- 5361 August, Lumbar disc disease M51.9 [place] [id number] [place] [address] 82357- 4623 August, [facility] [address] [place] [id number] August, Meniere''s disease, unspecified laterality H81.09 and Type 2 diabetes mellitus without complication, without long-term current use of insulin E11.9 [place] [id number] [place] [address] 86633- 2774 August, BMI 40.0-44.9, adult Z68.41 and Anxiety F41.9 [place] [id number] [place] [address] 96654- 6803 Jul, Lumbar disc disease M51.9 [place] [id number] [place] [address] 05209- 2674 Jul, Generalized anxiety disorder F41.1 [place] [id number] [place] [address] 78954- 5752 Jul, [place] [id number] [place] [address] 53205- 3461 Jul, Lumbar disc disease M51.9 [facility] [address] [place] [id number] Jun, Urinary tract infection without hematuria, site unspecified N39.0 ; Bilateral impacted cerumen H61.23 ; Loose stools R19.5 and Type 2 diabetes mellitus without complication, without long-term current use of insulin E11.9 [place] [id number] [place] [address] 82950- 4765 Jun, [place] [id number] [place] [address] 81176- 3246 15 Jun, 2017 Fibromyalgia M79.7 [facility] [address] [address] 12 Jun, 2017 Breast mass, right N63.10 [facility] [address] [address] 09 Jun, 2017 Breast mass, right N63.10 [facility] [address] [place] [address] 08 Jun, 2017 Breast mass, right N63.10 ; Type 2 diabetes mellitus without complication , without long-term current use of insulin E11.9 and Fibromyalgia M79.7 [facility] [address], [place] [address] Jun, Gastroesophageal reflux disease without esophagitis K21.9 [facility] [address] [id number] [id number] Jun, Lumbar disc disease M51.9 [facility] [address], [place] [address] May, [facility] [id number] [place] [address] [id number] May, [facility] [id number] [place] [id number] May, [facility] [address] [id number] [id number] May, Lumbar disc disease M51.9 [facility] [id number] [place] [id number] Apr, [facility] [address] [place] [id number] Apr, Viral upper respiratory tract infection J06.9 and Impacted cerumen, bilateral H61.23 [facility] [id number] [id number] Apr, [facility] [id number] [address] Apr, [facility] [address] [id number] [id number] Apr, Lumbar disc disease M51.9 [place] [address] [place] [id number] Mar, Lumbar disc disease M51.9 and Fibromyalgia M79.7 [facility] [address] [facility] [id number], [place] [address] Mar, [facility] [address] [id number] [id number] Feb, [facility] [address] [facility] [id number], [place] [address] Jan, Type 2 diabetes mellitus without complication, without long- term current use of insulin E11.9 [place] [address] [place] [id number] Jan, Type 2 diabetes mellitus without complication, without long-term current use of insulin E11.9 ; Fibromyalgia M79.7 and Lumbar disc disease M51.9 [facility] [address] [id number] [id number] Jan, [facility] [address] [id number] [id number] Jan, [facility] [address] [facility] [id number], [place] [address] Dec, [facility] [address] [id number] [address] Dec, [facility] [address] [id number][place] [id number] Dec, [facility] [address] [id number] [address] Nov, Pre-procedure lab exam Z01.812 [facility] [address] [id number][place] [address] Nov, Ventral hernia without obstruction or gangrene K43.9 [facility] [address] [id number][place] [address] Nov, [facility] [address] [id number] [address] Nov, [facility] [address] [place] [address] Nov, Ventral hernia without obstruction or gangrene K43.9 [facility] [address] [place] [address] Nov, Fibromyalgia M79.7 and Polyneuropathy associated with underlying disease G63 [facility] [address] [facility] [id number], [place] [address] Oct, [facility] [address] [id number] [address] Oct, [facility] [address] [id number] [address] Oct, [facility] [address] [id number] [address] Oct, [facility] [id number] [id number] Sep, [facility] [address] [id number] [address] Sep, [facility] [address], [place] [address] Sep, [facility] [address] [id number], [place] [address] August, [facility] [address] [place] [id number] August, Right medial knee pain M25.561 [facility] [address] [facility] [id number], [place] [address] August, [facility] [address] [facility] [id number], [place] [address] August, [facility] [address] [id number], [place] [address] August, [facility] [place] [facility] [address] [id number], [place] [id number] August, [facility] [address] [facility] [id number] [place] [address] August, [facility] [place] [facility] [address] [id number][place] [id number] August, [facility] [place] [facility] [address] [id number][place] [id number] Jul, [facility] [place] [facility] [address] [facility] [id number], [place] [address] Jul, [facility] [place] [facility] [address] [id number], [place] [id number] Jul, [facility] [place] [facility] [address] [id number], [place] [address]46 Jun, [facility] [place] [facility] [address], [place] [address] Jun, [facility] [place] [facility] [id number], [place] [address] 8271 May, [facility] [place] [facility] [address], [place] [address] May, [facility] [address] [id number], [place] [address] 1006 May, [facility] [address] [id number], [place] [address] 2546 May, [facility] [address] [id number], [place] [address] Apr, [facility] [address] [place] [id number] Apr, Upper respiratory infection with cough and congestion J06.9 [facility] [place] [facility] [id number] [address] Apr, [facility] [address] [id number], [place] [address] 6[address] Apr, [facility] [address], [place] [address] Mar, [facility] [id number] [place] [address] 26535- 5037 Mar, [facility] [id number] [place] [address] 68697- 0549 Mar, Other chronic pain G89.29 [facility] [id number] [place] [address] 60106- 0129 Mar, [facility] [id number] [place] [address] 26397- 2885 Mar, [facility] [id number] [place] [address] 88190- 7198 29 Feb, 2016 [facility] [id number] [place] [address] 30309- 6349 Feb, [facility] [address] [place] [address] Feb, Insomnia, unspecified type G47.00 and Swelling of face R22.0 [facility] [id number] [place] [address] 25532- 1782 16 Feb, 2016 [facility] [id number] [place] [address] 47252- 7795 14 Feb, 2016 [facility] [address], [place] [address]- 4[address] 07 Feb, 2016 [facility] [address], [place] [address]- 9994 02 Feb, 2016 [facility] [id number] [place] [address] 70927- 1482 24 Jan, 2016 [facility] [address], [place] [address]- 8513 17 Jan, 2016 [facility] [id number] [place] [address] 06295- 2991 Jan, Neurogenic bladder N31.9 [facility] [address], [place] [address]- 1392 Jan, [facility] [id number] [place] [address] 20914- 5757 Jan, [facility] [id number] [place] [address] 41945- 4575 Jan, [facility] [id number] [place] [address] 83267- 4718 Jan, [facility] [id number] [place] [address] 92148- 0762 Jan, Screening for breast cancer Z12.39 [place] [id number] [place] [address] 93062- 7671 Jan, [facility] [id number] [place] [address] 04505- 4426 Dec, Type 2 diabetes mellitus without complication, without long- term current use of insulin E11.9 ; Lumbar disc disease M51.9 ; Polyneuropathy associated with underlying disease G63 and Neurogenic bladder N31.9 [place] [id number] [place] [address] 20473- 1913 16 Dec, 2015 [place] [id number] [place] [address] 37134- 0963 14 Dec, 2015 Other chronic pain G89.29 [facility] [id number] [place] [address] 33607- 1505 Dec, [facility] [address], [place] [address]- 9097 Nov, [place] [id number] [place] [address] 09557- 8784 Nov, [facility] [address], [place] [address]- 6634 Nov, Type 2 diabetes mellitus without complication, [...] type D50.9 [facility] [id number] [place] [address] 33726- 7368 Nov, [facility] [id number] [place] [address] 95533- 4380 Nov, [facility] [id number] [place] [address] 23561- 2959 Nov, [facility] [id number] [place] [address] 01598- 4730 Nov, [facility] [id number] [place] [address] 17862- 1362 Nov, [facility] [id number] [place] [address] 33049- 5002 Nov, [facility] [id number] [place] [address] 47892- 2284 Nov, [facility] [address] [id number], [place] [address]- 5090 Jul, [facility] [address], [place] [address]- 5953 Jul, [facility] [address] [id number], [place] [address] 1860 August, [facility] [id number] [place] [address] 45118- 3415 Jun, [facility] [address], [place] [address]- 1545 Oct, IMMUNIZATIONS No Known Immunizations SOCIAL HISTORY Never Assessed REASON FOR VISIT [place] PLAN OF CARE VITAL SIGNS MEDICATIONS Unknown [...]
--- OUTSIDE RECORDS SUMMARY | 2018-01-22 14:17 | XMS REPORT ---
Author Author LAURIE MAHAJAN Organization [facility] Address [address] [place] [address] Care Team Providers Care Clinical Dietitian Name Role Phone LAURIE MAHAJAN Unavailable PROBLEMS Type Condition ICD9-CM Code MLC38-TE Code Onset Dates Condition Status SNOMED Code Problem Lumbar disc disease M51.9 Active 75653038 Problem Neurogenic bladder N31.9 Active 381041933 Problem Polyneuropathy associated with underlying disease G63 Active 117498116 Problem Anxiety F41.9 Active 18412941 Problem Generalized anxiety disorder F41.1 Active 79830685 Problem Insomnia, unspecified type G47.00 Active 458306198 Problem Type 2 diabetes mellitus without complication, without long-term current use of insulin E11.9 Active 306231755 Problem Gastroesophageal reflux disease without esophagitis K21.9 Active 989225998 Problem Other chronic pain G89.29 Active 73512508 Problem Psychosis, unspecified psychosis type F29 Active 31098596 Problem Fibromyalgia M79.7 Active 214058142 Problem Nicotine abuse Z72.0 Active 18208521 Problem Irritable bowel syndrome with diarrhea K58.0 Active 258552203 Problem Chronic pain disorder G89.4 Active 390433679 Problem Meniere disease, unspecified laterality H81.09 Active 47246075 ALLERGIES No Information ENCOUNTERS Encounter Location Date Diagnosis [facility] [address] [place] [id number] Oct, Polyneuropathy associated with underlying disease G63 ; Type 2 diabetes mellitus without complication, without long-term current use of insulin E11.9 and Family history of CVA Z82.3 [facility] [address] [facility] [id number], [place] [address] Sep, Lumbar disc disease M51.9 [facility] [address] [facility] [id number], [place] [address] Sep, [place] [address] [place] [address] 3034 August, Lumbar disc disease M51.9 [place] [address] [place] [id number] [place] [address] 72782- 9219 August, [facility] [address] [place] [id number] August, Meniere''s disease, unspecified laterality H81.09 and Type 2 diabetes mellitus without complication, without long-term current use of insulin E11.9 [place] [address] [place] [address] 09658- 0606 August, BMI 40.0-44.9, adult Z68.41 and Anxiety F41.9 [place] [address] [place] [id number] [place] [address] 49183- 9995 Jul, Lumbar disc disease M51.9 [place] [address] [place] [id number] [place] [address] 60504- 5773 Jul, Generalized anxiety disorder F41.1 [place] [address] [place] [id number] [place] [address] 92241- 0574 Jul, [place] [address] [id number] [place] [address] 99503- 4745 Jul, Lumbar disc disease M51.9 [facility] [address] [place] [id number] Jun, Urinary tract infection without hematuria, site unspecified N39.0 ; Bilateral impacted cerumen H61.23 ; Loose stools R19.5 and Type 2 diabetes mellitus without complication, without long-term current use of insulin E11.9 [place] [address] [place] [id number] [place] [address] 60406- 7679 Jun, [place] [address] [place] [id number] [place] [address] 98442- 9828 Jun, Fibromyalgia M79.7 [place] [address] [place] [id number] [place] [address] 36900- 2546 Jun, Breast mass, right N63.10 [facility] [place] [address] [address] Jun, Breast mass, right N63.[address] [id number] Jun, Breast mass, right N63.10 ; Type 2 diabetes mellitus without complication , without long-term current use of insulin E11.9 and Fibromyalgia M79.7 [facility] [address] [place] [id number]- 4166 Jun, Gastroesophageal reflux disease without esophagitis K21.9 [facility] [address] [place] [id number] [place] [address] [id number] Jun, Lumbar disc disease M51.9 [facility] [address] [place] [address] 09587- 8296 May, [facility] [address] [place] [id number] [place] [address] [id number] May, [facility] [address] [address] [id number] [place] [address] [id number] May, [facility] [address] [place] [id number] [place] [address] [id number] May, Lumbar disc disease M51.9 [facility] [address] [id number] [place] [id number] Apr, [address] [id number] Apr, Viral upper respiratory tract infection J06.9 and Impacted cerumen, bilateral H61.23 [facility] [address] [place] [address] [id number] [place] [address] [id number] Apr, [facility] [place] [address] [place] [address] 61610- 2816 Apr, [facility] [address] [place] [address] [id number] [place] [address] [id number] Apr, Lumbar disc disease M51.9 [facility] [address] [place] [id number] Mar, Lumbar disc disease M51.9 and Fibromyalgia M79.7 [facility] [address] [facility] [id number], [place] [address] Mar, [facility] [id number] [id number] Feb, [facility] [address] [facility] [id number] [address] Jan, Type 2 diabetes mellitus without complication, without long- term current use of insulin E11.9 [facility] [address] [place] [id number] Jan, Type 2 diabetes mellitus without complication, without long-term current use of insulin E11.9 ; Fibromyalgia M79.7 and Lumbar disc disease M51.9 [facility] [id number] [id number] Jan, [facility] [address] [place] [id number] [id number] Jan, [facility] [address] [place] [address] [id number], [place] [address]346 Dec, [facility] [id number] [id number] Dec, [facility] [address] [place] [id number][place] [address] Dec, [facility] [address] [place] [id number][place] [id number] Nov, Pre-procedure lab exam Z01.812 [facility] [address] [place] [address] [id number], [place] [address] Nov, Ventral hernia without obstruction or gangrene K43.9 [facility] [address] [place] [id number][place] [id number] Nov, [facility] [address] [place] [id number] [id number] Nov, [facility] [address] [place] [address] Nov, Ventral hernia without obstruction or gangrene K43.9 [facility] [address] [facility] [address] Nov, Fibromyalgia M79.7 and Polyneuropathy associated with underlying disease G63 [facility] [address] [facility] [id number], [place] [address] Oct, [facility] [address] [place] [id number][place] [id number] Oct, [facility] [address] [place] [address] [id number] [place] [address] [id number] Oct, [facility] [address] [place] [address] [id number] [id number] Oct, [facility] [address] [place] [address] [id number] [id number] Sep, [facility] [address] [id number], [place] [address] 4066 Sep, [facility] [address]65100[place], [place] [address] 1106 Sep, [facility] [address] [id number], [place] [address] 7[address] August, [facility] [address] [place] [id number] August, Right medial knee pain M25.561 [facility] [address] [facility] [id number], [place] [address] 8[address] August, [facility] [address] [facility] [id number], [place] [address] 45[address] August, [facility] [address] [place] [address] [id number], [place] [address] 2546 August, [facility] [address] [place] [id number][place] [id number] August, [facility] [address] [facility] [id number], [place] [address] 0396 August, [facility] [address] [id number] [place] [id number] August, [facility] [place] [facility] [address] [id number][place] [id number] Jul, [facility] [address] [facility] [id number], [place] [address] 99[address] Jul, [facility] [place] [facility] [address] [place] [id number][place] [id number] Jul, [facility] [address] [facility] [id number] [place] [address]- 4194 Jun, [facility] [address] [place] [address] [id number], [place] [address] Jun, [facility] [address] [id number], [place] [address]- 7322 May, [facility] [address] [id number], [place] [address]- 4596 May, [facility] [address]65100[place], [place] [address] 0541 May, [facility] [address] [id number], [place] [address]- 6094 May, [facility] [address] [id number], [place] [address] 2154 Apr, [facility] [address] [place] [id number] Apr, Upper respiratory infection with cough and congestion J06.9 [facility] [id number][place] [id number] Apr, [facility] [address] [id number], [place] [address]- 5606 Apr, [facility] [address] [id number], [place] [address]- 7398 Mar, [facility] [address] [place] [address] 11752- 2138 Mar, [facility] [address] [place] [id number] [place] [address] 74862- 0196 Mar, Other chronic pain G89.29 [facility] [address] [place] [id number] [place] [address] 97296- 1792 Mar, [facility] [address] [place] [id number] [place] [address] 00675- 6446 05 Mar, 2016 [facility] [address] [place] [id number] [place] [address] 12392- 1989 Feb, [facility] [address] [place] [id number] [place] [address] 46091- 6069 Feb, [facility] [address] [place] [id number] Feb, Insomnia, unspecified type G47.00 and Swelling of face R22.0 [facility] [address] [place] [address] 06712- 1183 Feb, [facility] [address] [place] [id number] [place] [address] 30624- 1749 Feb, [facility] [address] [place] [address] 87799- 4382 Feb, [facility] [address] [place] [address] 45945- 6432 Feb, [facility] [address] [place] [address] 57539- 5092 24 Jan, 2016 [facility] [address] [place] [id number] [place] [address] 05781- 4064 17 Jan, 2016 [facility] [address] [place] [address] 03044- 9441 14 Jan, 2016 Neurogenic bladder N31.9 [facility] [place] [address] [place] [id number] [place] [address] 28012- 8941 Jan, [facility] [place] [address], [place] [address]- 0688 Jan, [facility] [address]65100[place], [place] [address]- 5187 Jan, [facility] [address]65100[place], [place] [address]- 2098 Jan, [facility] [address] [place] [address] 89431- 4597 Jan, Screening for breast cancer Z12.39 [facility] [address] [place] [address] 82157- 4619 Jan, [facility] [address], [place] [address]- 9078 Dec, Type 2 diabetes mellitus without complication, without long- term current use of insulin E11.9 ; Lumbar disc disease M51.9 ; Polyneuropathy associated with underlying disease G63 and Neurogenic bladder N31.9 [facility] [address], [place] [address]- 0696 16 Dec, 2015 [facility] [address], [place] [address]- 0352 14 Dec, 2015 Other chronic pain G89.29 [facility] [address]100[place], [place] [address]- 7604 Dec, [facility] [address]100[place], [place] [address]- 4957 Nov, [facility] [address]100[place], [place] [address]- 9296 Nov, [facility] [address]100[place], [place] [address]- 7785 Nov, Type 2 diabetes mellitus without complication, [...] anemia, unspecified iron deficiency anemia type D50.9 [facility] [address], [place] [address]- 2092 Nov, [facility] [address] [place] [id number] [place] [address] 62104- 0186 Nov, [facility] [address] [place] [address] 60957- 1332 Nov, [facility] [address] [address] [id number] [place] [address] 74876- 7856 Nov, [facility] [address] [place] [address] [id number] [place] [address] 23231- 5519 Nov, [facility] [address] [id number] [place] [address] 61651- 9417 Nov, [facility] [address] [place] [address] 27480- 3033 Nov, [facility] [id number] [place] [address] 96484- 5555 Jul, [facility] [place] [address], [place] [address]- 3705 Jul, [facility] [address], [place] [address]- 7696 August, [facility] [address], [place] [address]- 7017 Jun, [facility] [id number] [place] [address] 15765- 6319 Oct, IMMUNIZATIONS No Known Immunizations SOCIAL HISTORY Never Assessed REASON FOR VISIT Mammogram Order PLAN OF CARE VITAL SIGNS MEDICATIONS No Known Medications RESULTS No Results PROCEDURES No Known [...]
--- OUTSIDE RECORDS SUMMARY | 2018-01-22 14:18 | XMS REPORT ---
Author Author LAURIE MAHAJAN Organization [facility] Address [address] [place] [address] Care Team Providers Care Break Out Worker Name Role Phone LAURIE MAHAJAN Unavailable PROBLEMS Type Condition ICD9-CM Code AWC75-CC Code Onset Dates Condition Status SNOMED Code Problem Lumbar disc disease M51.9 Active 26869876 Problem Neurogenic bladder N31.9 Active 762977055 Problem Polyneuropathy associated with underlying disease G63 Active 964143674 Problem Anxiety F41.9 Active 88199919 Problem Generalized anxiety disorder F41.1 Active 14272105 Problem Insomnia, unspecified type G47.00 Active 014312578 Problem Type 2 diabetes mellitus without complication, without long-term current use of insulin E11.9 Active 849651907 Problem Gastroesophageal reflux disease without esophagitis K21.9 Active 181754543 Problem Other chronic pain G89.29 Active 94622889 Problem Psychosis, unspecified psychosis type F29 Active 22999437 Problem Fibromyalgia M79.7 Active 825271616 Problem Nicotine abuse Z72.0 Active 96614198 Problem Irritable bowel syndrome with diarrhea K58.0 Active 810794477 Problem Chronic pain disorder G89.4 Active 323234603 Problem Meniere disease, unspecified laterality H81.09 Active 45298412 ALLERGIES No Information ENCOUNTERS Encounter [facility] Date [facility] [address] [place], [place] [id number] Oct, Polyneuropathy associated with underlying disease G63 ; Type 2 diabetes mellitus without complication, without long-term current use of insulin E11.9 and Family history of CVA Z82.3 [facility] [address] [facility] [id number], [place] [address] Sep, Lumbar disc disease M51.9 [facility] [address] [facility] [id number], [place] [address] Sep, [place] [address] [place] [address]47[address] August, Lumbar disc disease M51.9 [place] [address] [place] [id number] [place] [address]35- 4810 August, [facility] [address] [place] [id number] August, Meniere''s disease, unspecified laterality H81.09 and Type 2 diabetes mellitus without complication, without long-term current use of insulin E11.9 [place] [address] [place] [address] 82499- 4909 August, BMI 40.0-44.9, adult Z68.41 and Anxiety F41.9 [place] [address] [place] [id number] [place] [address] 54805- 7697 Jul, Lumbar disc disease M51.9 [place] [address] [place] [id number] [place] [address] 06557- 3942 Jul, Generalized anxiety disorder F41.1 [place] [address] [place] [id number] [place] [address] 81965- 2770 Jul, [place] [address] [place] [id number] [place] [address] 51917- 8200 Jul, Lumbar disc disease M51.9 [facility] [address] [place] [id number] Jun, Urinary tract infection without hematuria, site unspecified N39.0 ; Bilateral impacted cerumen H61.23 ; Loose stools R19.5 and Type 2 diabetes mellitus without complication, without long-term current use of insulin E11.9 [place] [address] [place] [id number] [place] [address] 48543- 0597 Jun, [place] [address] [place] [id number] [place] [address] 52813- 8214 Jun, Fibromyalgia M79.7 [place] [address] [place] [id number] [place] [address] 03186- 2546 Jun, Breast mass, right N63.10 [facility] [address] [address] Jun, Breast mass, right N63.[address] [id number] Jun, Breast mass, right N63.10 ; Type 2 diabetes mellitus without complication , without long-term current use of insulin E11.9 and Fibromyalgia M79.7 [facility] [address] [place] [address] [phone]- 8291 Jun, Gastroesophageal reflux disease without esophagitis K21.9 [facility] [address] [place] [id number] [place] [id number] Jun, Lumbar disc disease M51.9 [facility] [address] [place] [address] 26123- 1186 May, [facility] [address] [place] [id number] [place] [address] [id number] May, [facility] [address] [place] [id number] [place] [address] [id number] May, [facility] [address] [place] [id number] [place] [address] [id number] May, Lumbar disc disease M51.9 [facility] [address] [place] [id number] [place] [address] [id number] Apr, [address] [id number] Apr, Viral upper respiratory tract infection J06.9 and Impacted cerumen, bilateral H61.23 [facility] [address] [place] [id number] [place] [address] [id number] Apr, [facility] [address] [place] [address] 01607- 8126 Apr, [facility] [address] [place] [id number] [place] [address] [id number] Apr, Lumbar disc disease M51.9 [facility] [address] [place] [id number] Mar, Lumbar disc disease M51.9 and Fibromyalgia M79.7 [facility] [address] [facility] [id number], [place] [address] Mar, [facility] [id number] [id number] Feb, [facility] [address] [facility] [id number] [address] Jan, Type 2 diabetes mellitus without complication, without long- term current use of insulin E11.9 [facility] [address] [place] [id number] Jan, Type 2 diabetes mellitus without complication, without long-term current use of insulin E11.9 ; Fibromyalgia M79.7 and Lumbar disc disease M51.9 [facility] [id number] [id number] Jan, [facility] [address] [id number] [id number] Jan, [facility] [address] [id number], [place] [address] Dec, [facility] [id number][place] [id number] Dec, [facility] [address] [place] [id number] [address] Dec, [facility] [address] [place] [id number][place] [address] Nov, Pre-procedure lab exam Z01.812 [facility] [address] [place] [id number], [place] [address] Nov, Ventral hernia without obstruction or gangrene K43.9 [facility] [address] [place] [id number][place] [id number] Nov, [facility] [address] [place] [id number] [id number] Nov, [facility] [address] [place] [id number] Nov, Ventral hernia without obstruction or gangrene K43.9 [facility] [address] [facility] [address] Nov, Fibromyalgia M79.7 and Polyneuropathy associated with underlying disease G63 [facility] [address] [facility] [id number], [place] [address] Oct, [facility] [address] [place] [id number][place] [id number] Oct, [facility] [address] [place] [id number] [place] [address] [id number] Oct, [facility] [address] [place] [id number] [id number] Oct, [facility] [address] [place] [id number] [id number] Sep, [facility] [address] [place] [address] [id number], [place] [address] 2416 Sep, [facility] [address]65100[place], [place] [address] Sep, [facility] [address] [place] [id number], [place] [address] August, [facility] [address] [place] [id number] August, Right medial knee pain M25.561 [facility] [address] [facility] [id number], [place] [address] August, [facility] [address] [facility] [id number], [place] [address] August, [facility] [address] [place] [id number], [place] [address]46 August, [facility] [address] [place] [id number], [place] [address] August, [facility] [address] [facility] [id number], [place] [address] August, [facility] [address] [place] [id number] [place] [id number] August, [facility] [place] [facility] [address] [place] [id number], [place] [address] Jul, [facility] [address] [facility] [id number], [place] [address] Jul, [facility] [place] [facility] [address] [place] [id number], [place] [id number] Jul, [facility] [address] [facility] [id number] [place] [address]- 8622 Jun, [facility] [address] [place] [id number], [place] [address] 0446 Jun, [facility] [address] [place] [id number], [place] [address]- 1453 May, [facility] [address] [place] [id number], [place] [address] 6070 May, [facility] [address]00565100[place], [place] [address]- 9725 May, [facility] [address] [place] [id number], [place] [address]- 0989 May, [facility] [address] [place] [address] [id number], [place] [address]- 0780 Apr, [facility] [address] [place] [id number] Apr, Upper respiratory infection with cough and congestion J06.9 [facility] [id number] [address] Apr, [facility] [address] [place] [id number], [place] [address]- 1706 Apr, [facility] [address] [place] [id number], [place] [address]- 0165 Mar, [facility] [address] [place] [address] 30622- 8832 Mar, [facility] [address] [place] [id number] [place] [address] 76557- 4530 Mar, Other chronic pain G89.29 [facility] [address] [place] [id number] [place] [address] 55524- 2607 Mar, [facility] [address] [place] [id number] [place] [address] 81851- 0407 05 Mar, 2016 [facility] [address] [place] [id number] [place] [address] 63844- 6843 Feb, [facility] [address] [place] [id number] [place] [address] 04151- 9349 Feb, [facility] [address] [place] [id number] Feb, Insomnia, unspecified type G47.00 and Swelling of face R22.0 [facility] [address] [place] [address] 29882- 1068 Feb, [facility] [address] [place] [id number] [place] [address] 66486- 9332 Feb, [facility] [address] [place] [address] 55830- 5615 Feb, [facility] [address] [place] [address] 77472- 0867 Feb, [facility] [address] [place] [address] 34215- 8820 24 Jan, 2016 [facility] [address] [place] [id number] [place] [address] 80611- 1671 17 Jan, 2016 [facility] [address] [place] [address] 82761- 8250 14 Jan, 2016 Neurogenic bladder N31.9 [facility] [address] [place] [id number] [place] [address] 90301- 2151 Jan, [facility] [address]00565100[place], [place] [address]- 2630 Jan, [facility] [address], [place] [address]- 2096 Jan, [facility] [address]65100[place], [place] [address]- 9255 Jan, [facility] [address] [place] [address] 49830- 7699 Jan, Screening for breast cancer Z12.39 [facility] [address] [place] [address] 29789- 0928 Jan, [facility] [address], [place] [address] Dec, Type 2 diabetes mellitus without complication, without long- term current use of insulin E11.9 ; Lumbar disc disease M51.9 ; Polyneuropathy associated with underlying disease G63 and Neurogenic bladder N31.9 [facility] [address]65[address], [place] [address]- 0639 16 Dec, 2015 [facility] [address], [place] [address]- 4432 14 Dec, 2015 Other chronic pain G89.29 [facility] [address], [place] [address]- 0371 Dec, [facility] [address], [place] [address]- 0567 Nov, [facility] [address], [place] [address]- 6361 Nov, [facility] [address], [place] [address]- 6903 Nov, Type 2 diabetes mellitus without complication, [...] anemia, unspecified iron deficiency anemia type D50.9 [facility] [address]65[address], [place] [address]- 8014 Nov, [facility] [address] [place] [id number] [place] [address] 54511- 3486 Nov, [facility] [address] [place] [address] 42350- 5364 Nov, [facility] [address] [place] [id number] [place] [address] 99762- 2281 Nov, [facility] [address] [place] [id number] [place] [address] 53641- 8564 Nov, [facility] [address] [place] [id number] [place] [address] 08904- 6913 Nov, [facility] [address] [place] [id number] [place] [address] 80912- 7094 Nov, [facility] [address] [place] [id number] [place] [address] 61540- 4457 Jul, [facility] [address], [place] [address]- 3906 Jul, [facility] [address], [place] [address]- 8976 August, [facility] [address], [place] [address]- 2017 Jun, [facility] [address] [place] [id number] [place] [address] 60190- 3064 Oct, IMMUNIZATIONS No Known Immunizations SOCIAL HISTORY Never Assessed REASON FOR VISIT Pantoprazole Changed to Zegerid per ins PLAN OF CARE VITAL SIGNS MEDICATIONS Medication Instructions Dosage Frequency Start Date End Date Duration Status Omeprazole-Sodium Bicarbonate 20-1100 MG Orally Once a day 1 capsule on an empty stomach 24h 07 Mar, 2018 30 day(s) Active RESULTS No Results PROCEDURES [...]
--- OUTSIDE RECORDS SUMMARY | 2018-01-22 14:18 | XMS REPORT ---
Author Author LAURIE MAHAJAN Organization [facility] Address [address] [place] [address] Care Team Providers Care Licensed Chemical Spray Technician Name Role Phone LAURIE MAHAJAN Unavailable PROBLEMS Type Condition ICD9-CM Code EEC74-LG Code Onset Dates Condition Status SNOMED Code Problem Lumbar disc disease M51.9 Active 15679812 Problem Neurogenic bladder N31.9 Active 820050871 Problem Polyneuropathy associated with underlying disease G63 Active 418691129 Problem Anxiety F41.9 Active 81274041 Problem Generalized anxiety disorder F41.1 Active 52385257 Problem Insomnia, unspecified type G47.00 Active 651163069 Problem Type 2 diabetes mellitus without complication, without long-term current use of insulin E11.9 Active 309972041 Problem Gastroesophageal reflux disease without esophagitis K21.9 Active 409917813 Problem Other chronic pain G89.29 Active 52261452 Problem Psychosis, unspecified psychosis type F29 Active 36132892 Problem Fibromyalgia M79.7 Active 728853216 Problem Nicotine abuse Z72.0 Active 61147389 Problem Irritable bowel syndrome with diarrhea K58.0 Active 624417826 Problem Chronic pain disorder G89.4 Active 627112008 Problem Meniere disease, unspecified laterality H81.09 Active [id number] ALLERGIES No Information ENCOUNTERS Encounter Location Date Diagnosis [facility] [address], [place] [id number] August, Meniere''s disease, unspecified laterality H81.09 and Type 2 diabetes mellitus without complication, without long-term current use of insulin E11.9 [facility] [address] [facility] [id number] [address] August, BMI 40.0-44.9, adult Z68.41 and Anxiety F41.9 [facility] [id number] [place] [address] Jul, Lumbar disc disease M51.9 [place] [address] [address] Jul, Generalized anxiety disorder F41.1 [place] [address] [address] Jul, [place] [id number] [place] [address] Jul, Lumbar disc disease M51.9 [facility] [address] [place] [id number] Jun, Urinary tract infection without hematuria, site unspecified N39.0 ; Bilateral impacted cerumen H61.23 ; Loose stools R19.5 and Type 2 diabetes mellitus without complication, without long-term current use of insulin E11.9 [place] [id number] [place] [address]- [address] Jun, [place] [id number] [place] [address]- 8537 Jun, Fibromyalgia M79.7 [place] [id number] [place] [address] 9647 Jun, Breast mass, right N63.10 [place] [address] [address] Jun, Breast mass, right N63.10 [facility] [address] [place] [id number] Jun, Breast mass, right N63.10 ; Type 2 diabetes mellitus without complication , without long-term current use of insulin E11.9 and Fibromyalgia M79.7 [place] [id number] [place] [address]- [address]37 Jun, Gastroesophageal reflux disease without esophagitis K21.9 [facility] [id number] [place] [id number] Jun, Lumbar disc disease M51.9 [place] [address] [address] May, [facility] [id number] [id number] May, [facility] [id number] [id number] May, [facility] [id number] [id number] May, Lumbar disc disease M51.9 [facility] [id number] [id number] Apr, [facility] [address] [id number] Apr, Viral upper respiratory tract infection J06.9 and Impacted cerumen, bilateral H61.23 [facility] [id number] [id number] Apr, [facility] [address] [id number] [address] Apr, [facility] [id number][place] [id number] Apr, Lumbar disc disease M51.[address] [facility] [address] [id number] Mar, Lumbar disc disease M51.9 and Fibromyalgia M79.7 [facility] [address] [id number] [address] Mar, [facility] [address] [id number] [id number] Feb, [facility] [address] [facility] [id number] [address] Jan, Type 2 diabetes mellitus without complication, without long- term current use of insulin E11.[address] [facility] [address] [id number] Jan, Type 2 diabetes mellitus without complication, without long-term current use of insulin E11.9 ; Fibromyalgia M79.7 and Lumbar disc disease M51.9 [facility] [address] [id number] [id number] Jan, [facility] [address] [id number] [id number] Jan, [facility] [address] [facility] [id number][place] [address] Dec, [facility] [address] [id number] [id number] Dec, [facility] [address] [id number][place] [id number] Dec, [facility] [address] [id number] [address] Nov, Pre-procedure lab exam Z01.812 [facility] [address] [facility] [id number], [place] [address] Nov, Ventral hernia without obstruction or gangrene K43.9 [facility] [address] [id number][place] [id number] Nov, [facility] [address] [id number] [id number] Nov, [facility] [address] [id number] Nov, Ventral hernia without obstruction or gangrene K43.9 [facility] [address] [id number] Nov, Fibromyalgia M79.7 and Polyneuropathy associated with underlying disease G63 [facility] [address] [facility] [id number], [place] [address] Oct, [facility] [address] [id number][place] [id number] Oct, [facility] [address] [id number][place] [id number] Oct, [facility] [address] [id number][place] [id number] Oct, [facility] [place] [facility] [address] [id number] [place] [id number] Sep, [facility] [place] [facility] [address] [id number] [place] [address] Sep, [facility] [place] [facility] [address] [id number] [place] [address] Sep, [facility] [place] [facility] [address] [id number] [place] [address] August, [facility] [address] [facility] [place] [id number] August, Right medial knee pain M25.561 [facility] [place] [facility] [address] [id number] [place] [address] August, [facility] [place] [facility] [address] [id number] [place] [address] August, [facility] [place] [facility] [address] [id number] [place] [address] August, [facility] [place] [facility] [address] [id number] [place] [id number] August, [facility] [place] [facility] [address] [id number] [place] [address] August, [facility] [place] [facility] [address] [id number] [place] [id number] August, [facility] [place] [facility] [address] [id number][place] [id number] Jul, [facility] [place] [facility] [address] [id number] [place] [address] Jul, [facility] [place] [facility] [address] [id number] [place] [id number] Jul, [facility] [place] [facility] [address] [id number] [place] [address]- [address] Jun, [facility] [place] [facility] [address] [id number] [place] [address] Jun, [facility] [address]00565[address] [address] May, [facility] [address]00565100[place], [place] [address] May, [facility] [address]00565[address], [place] [address] May, [facility] [address]00565100[place] [address] May, [facility] [address]00565[address], [place] [address] Apr, [facility] [address] [id number] Apr, Upper respiratory infection with cough and congestion J06.9 [facility] [id number] [place] [id number] Apr, [facility] [address]00565[address], [place] [address] Apr, [facility] [id number] [place] [address]39- 4069 Mar, [facility] [address]00565[address], [place] [address] Mar, [facility] [address]005[address], [place] [address] Mar, Other chronic pain G89.29 [facility] [address], [place] [address] Mar, [facility] [address] [address] 84[address] Mar, [facility] [address]65[address] [address] 79[address] Feb, [facility] [address] [id number] [address] Feb, [facility] [address] [place] [id number] Feb, Insomnia, unspecified type G47.00 and Swelling of face R22.0 [facility] [address]65[address] [address] Feb, [facility] [id number] [place] [address]123- 3243 Feb, [facility] [id number] [place] [address] 21318- 3625 Feb, [facility] [id number] [place] [address] 51061- 7563 Feb, [facility] [id number] [place] [address] 36306- 7374 Jan, [facility] [id number] [place] [address] 29390- 6792 Jan, [facility] [id number] [place] [address]30- 2269 Jan, Neurogenic bladder N31.9 [facility] [id number] [place] [address] 04933- 3759 Jan, [facility] [id number] [place] [address]64- 2617 Jan, [facility] [id number] [place] [address] 87114- 5548 Jan, [facility] [address] [id number] [address] Jan, [facility] [id number] [place] [address]57- 0854 Jan, Screening for breast cancer Z12.39 [facility] [address] [address]- [address] Jan, [facility] [id number] [place] [address] 58309- 0216 Dec, 2015 Type 2 diabetes mellitus without complication, without long- term current use of insulin E11.9 ; Lumbar disc disease M51.9 ; Polyneuropathy associated with underlying disease G63 and Neurogenic bladder N31.9 [facility] [address]65[address] [address]- [address] 16 Dec, 2015 [facility] [id number] [place] [address] 68080- 1745 14 Dec, 2015 Other chronic pain G89.29 [facility] [id number] [place] [address] 20724- 0653 Dec, [place] [id number] [place] [address] 35906- 0071 Nov, [place] [id number] [place] [address] 48075- 4746 Nov, [place] [id number] [place] [address] 74729- 8566 Nov, Type 2 diabetes mellitus without complication, [...] anemia, unspecified iron deficiency anemia type D50.9 [place] [address] [address] Nov, [facility] [address], [place] [address] 4479 Nov, [place] [id number] [place] [address] 22050- 5721 Nov, [place] [address] [address] 4159 Nov, [facility] [id number] [place] [address] [id number]- 9945 Nov, [facility] [address] [facility] [id number] [address]- 0329 Nov, [facility] [address] [facility] [id number] [address]- 9218 Nov, [facility] [address] [id number] [address]- 7602 Jul, [facility] [address] [id number]32 Jul, [facility] [address] [id number] August, [facility] [address] [id number] [address]- 9817 Jun, [facility] [address] [id number] [address]- 8836 Oct, IMMUNIZATIONS No Known Immunizations SOCIAL HISTORY Never Assessed REASON FOR VISIT Request for Blood sugar checks PLAN OF CARE VITAL SIGNS MEDICATIONS Unknown [...]
--- OUTSIDE RECORDS SUMMARY | 2018-01-22 14:18 | XMS REPORT ---
Author Author LAURIE MAHAJAN Organization [facility] Address [address] [place] [address] Care Team Providers Care Curtain Cleaner Name Role Phone LAURIE MAHAJAN Unavailable PROBLEMS Type Condition ICD9-CM Code ODV99-RM Code Onset Dates Condition Status SNOMED Code Problem Lumbar disc disease M51.9 Active 47406208 Problem Neurogenic bladder N31.9 Active 819128313 Problem Polyneuropathy associated with underlying disease G63 Active 312458218 Problem Anxiety F41.9 Active 48981560 Problem Generalized anxiety disorder F41.1 Active 38033008 Problem Insomnia, unspecified type G47.00 Active 975356047 Problem Type 2 diabetes mellitus without complication, without long-term current use of insulin E11.9 Active 933403068 Problem Gastroesophageal reflux disease without esophagitis K21.9 Active 625278483 Problem Other chronic pain G89.29 Active 09354152 Problem Psychosis, unspecified psychosis type F29 Active 41974904 Problem Fibromyalgia M79.7 Active 856155519 Problem Nicotine abuse Z72.0 Active 16232185 Problem Irritable bowel syndrome with diarrhea K58.0 Active 136494700 Problem Chronic pain disorder G89.4 Active 897112578 Problem Meniere disease, unspecified laterality H81.09 Active 10325780 ALLERGIES No Information ENCOUNTERS Encounter Location Date [facility] [address] [place], [place] [id number] August, Meniere''s disease, unspecified laterality H81.09 and Type 2 diabetes mellitus without complication, without long-term current use of insulin E11.9 [facility] [address] [facility] [id number] [address] August, BMI 40.0-44.9, adult Z68.41 and Anxiety F41.9 [facility] [id number] [place] [address] Jul, Lumbar disc disease M51.9 [place] [address] [address] Jul, Generalized anxiety disorder F41.1 [place] [address] [address] Jul, [place] [address] [place] [id number] [place] [address] Jul, [facility]bar disc disease M51.9 [facility] [address] [place] [id number] Jun, Urinary tract infection without hematuria, site unspecified N39.0 ; Bilateral impacted cerumen H61.23 ; Loose stools R19.5 and Type 2 diabetes mellitus without complication, without long-term current use of insulin E11.9 [place] [address] [place] [address] Jun, [place] [id number] [place] [address]- 6[address] Jun, Fibromyalgia M79.7 [place] [id number] [place] [address] Jun, Breast mass, right N63.10 [place] [address] [address] Jun, Breast mass, right N63.10 [facility] [address] [place] [id number] Jun, Breast mass, right N63.10 ; Type 2 diabetes mellitus without complication , without long-term current use of insulin E11.9 and Fibromyalgia M79.7 [place] [address] [place] [address] Jun, Gastroesophageal reflux disease without esophagitis K21.9 [facility] [id number] [place] [id number] Jun, Lumbar disc disease M51.9 [place] [address] [address] May, [facility] [id number] [place] [id number] May, [facility] [id number] [place] [id number] May, [facility] [id number] [place] [address] May, Lumbar disc disease M51.9 [facility] [id number] [place] [address] Apr, [facility] [address] [id number] Apr, Viral upper respiratory tract infection J06.9 and Impacted cerumen, bilateral H61.23 [facility] [id number] [place] [id number] Apr, [facility] [id number] [address] Apr, [facility] [id number] [place] [address] Apr, Lumbar disc disease M51.[address] [facility] [address] [id number] Mar, Lumbar disc disease M51.9 and Fibromyalgia M79.7 [facility] [id number] [address] Mar, [facility] [address] [id number] [place] [id number] Feb, [facility] [address] [facility] [id number] [place] [address] Jan, Type 2 diabetes mellitus without complication, without long- term current use of insulin E11.[address] [facility] [address] [id number] Jan, Type 2 diabetes mellitus without complication, without long-term current use of insulin E11.9 ; Fibromyalgia M79.7 and Lumbar disc disease M51.9 [facility] [address] [id number] [place] [id number] Jan, [facility] [address] [id number] [place] [id number] Jan, [facility] [address] [facility] [id number] [place] [address] Dec, [facility] [address] [id number] [place] [address] Dec, [facility] [address] [id number] [place] [address] Dec, [facility] [address] [id number] [place] [address] Nov, Pre-procedure lab exam Z01.812 [facility] [address] [facility] [id number] [place] [address] Nov, Ventral hernia without obstruction or gangrene K43.9 [facility] [address] [id number] [place] [address] Nov, [facility] [address] [id number] [place] [address] Nov, [facility] [address] [place] [id number] Nov, Ventral hernia without obstruction or gangrene K43.9 [facility] [address] [place] [id number] Nov, Fibromyalgia M79.7 and Polyneuropathy associated with underlying disease G63 [facility] [address] [facility] [id number] [place] [address] Oct, [facility] [address] [id number] [place] [address] Oct, [facility] [address] [id number] [place] [address] Oct, [facility] [address] [id number] [place] [address] Oct, [facility] [place] [facility] [address] [id number] [place] [id number] Sep, [facility] [place] [facility] [address] [id number] [place] [address] Sep, [facility] [place] [facility] [address] [id number] [place] [address] Sep, [facility] [place] [facility] [address] [id number] [place] [address] August, [facility] [address] [facility] [place] [id number] August, Right medial knee pain M25.561 [facility] [place] [facility] [address] [id number] [place] [address] August, [facility] [place] [facility] [address] [id number] [place] [address] August, [facility] [place] [facility] [address] [id number] [place] [address] August, [facility] [place] [facility] [address] [id number] [place] [id number] August, [facility] [place] [facility] [address] [id number] [place] [address] August, [facility] [place] [facility] [address] [id number] [place] [id number] August, [facility] [place] [facility] [address] [id number] ANG[place] [id number] Jul, [facility] [place] [facility] [address] [id number] [place] [address] Jul, [facility] [place] [facility] [address] [id number] [place] [id number] Jul, [facility] [place] [facility] [address] [id number] [place] [address] Jun, [facility] [place] [facility] [address] [id number] [place] [address] Jun, [facility] [address]100[place] [address] May, [facility] [address]005[address]100[place] [address] May, [facility] [address]005[address]100[place] [address] May, [facility] [address] [address] May, [facility] [address] [address] Apr, [facility] [address] [place] [id number] Apr, Upper respiratory infection with cough and congestion J06.9 [facility] [id number] [place] [id number] Apr, [facility] [address] [address] Apr, [facility] [address] [place] [address]- 46[address] Mar, [facility] [address]100[place] [address] Mar, [facility] [address] [address] Mar, Other chronic pain G89.29 [facility] [address] [address] 8710 Mar, [facility] [address] [address] 5[address] Mar, [facility] [address] [address] Feb, [facility] [id number] [address] Feb, [facility] [address] [place] [place] [id number] Feb, Insomnia, unspecified type G47.00 and Swelling of face R22.0 [facility] [address] [address] Feb, [facility] [id number] [place] [address]- 4610 Feb, [facility] [id number] [place] [address] 71021- 0771 Feb, [facility] [id number] [place] [address]74- 3527 Feb, [facility] [id number] [place] [address] 40752- 4982 Jan, [facility] [id number] [place] [address] 15175- 9459 Jan, [facility] [id number] [place] [address] 68170- 4593 Jan, Neurogenic bladder N31.9 [facility] [id number] [place] [address] 95397- 0713 Jan, [facility] [id number] [place] [address] 46384- 7767 Jan, [facility] [id number] [place] [address] 49044- 2480 Jan, [facility] [address] [id number] [address]267 Jan, [facility] [id number] [place] [address] 80792- 3869 Jan, Screening for breast cancer Z12.39 [facility] [address] [address]- 12[address] Jan, [facility] [id number] [place] [address] 13031- [address]37 Dec, 2015 Type 2 diabetes mellitus without complication, without long- term current use of insulin E11.9 ; Lumbar disc disease M51.9 ; Polyneuropathy associated with underlying disease G63 and Neurogenic bladder N31.9 [facility] [address] [address]- [address] 16 Dec, 2015 [facility] [id number] [place] [address] 97478- 4910 14 Dec, 2015 Other chronic pain G89.29 [facility] [id number] [place] [address] 56643- 9737 Dec, [place] [address] [id number] [place] [address] 58757- 4017 Nov, [place] [id number] [place] [address] 05583- 4812 Nov, [place] [address] [id number] [place] [address] 93901- 6067 Nov, Type 2 diabetes mellitus without complication, [...] anemia, unspecified iron deficiency anemia type D50.9 [place] [address] [address]- [address] Nov, [facility] [address] [address]- 4[address] Nov, [place] [address] [place] [id number] [place] [address] 61221- 7277 Nov, [place] [address] [address]- 4148 Nov, [facility] [id number] [place] [address] 31694- 9762 Nov, [facility] [address] [facility] [id number] [place] [address]- 9072 Nov, [facility] [id number] [address]- 1546 Nov, [facility] [id number] [address]- 3116 Jul, [facility] [address] [address]- 6555 Jul, [facility] [address] [address] 04[address] August, [facility] [address] [address]- 7936 Jun, [facility] [id number] [address] 4639 Oct, IMMUNIZATIONS No Known Immunizations SOCIAL HISTORY Never Assessed REASON FOR VISIT Controlled Med Refill PLAN OF CARE VITAL SIGNS MEDICATIONS Medication Instructions Dosage Frequency Start Date End Date Duration Status Hydrocodone-Acetaminophen 7.5-325 MG Orally 3 times a day 1 tablet 8h Jan, 28 days Active RESULTS No Results PROCEDURES [...]
--- OUTSIDE RECORDS SUMMARY | 2018-01-22 14:19 | XMS REPORT ---
Author Author LAUIRE MAHAJAN Organization [facility] Address [address] [place] [address] Care Team Providers Care Atm Mechanic Name Role Phone LAURIE MAHAJAN Unavailable PROBLEMS Type Condition ICD9-CM Code KYE10-GK Code Onset Dates Condition Status SNOMED Code Problem Lumbar disc disease M51.9 Active 11581406 Problem Neurogenic bladder N31.9 Active 839846914 Problem Polyneuropathy associated with underlying disease G63 Active 388206953 Problem Anxiety F41.9 Active 11108783 Problem Generalized anxiety disorder F41.1 Active 72543871 Problem Insomnia, unspecified type G47.00 Active 929689350 Problem Type 2 diabetes mellitus without complication, without long-term current use of insulin E11.9 Active 118165067 Problem Gastroesophageal reflux disease without esophagitis K21.9 Active 143195900 Problem Other chronic pain G89.29 Active 38302597 Problem Psychosis, unspecified psychosis type F29 Active 74953430 Problem Fibromyalgia M79.7 Active 607298903 Problem Nicotine abuse Z72.0 Active 61391964 Problem Irritable bowel syndrome with diarrhea K58.0 Active 432996229 Problem Chronic pain disorder G89.4 Active 921565491 Problem Meniere disease, unspecified laterality H81.09 Active 32177881 ALLERGIES No Information ENCOUNTERS Encounter Location Date [facility] [address] [id number] August, Meniere''s disease, unspecified laterality H81.09 and Type 2 diabetes mellitus without complication, without long-term current use of insulin E11.9 [facility] [address] [facility] [id number] [address] August, BMI 40.0-44.9, adult Z68.41 and Anxiety F41.9 [facility] [id number] [place] [address] Jul, Lumbar disc disease M51.9 [place] [address] [address] Jul, Generalized anxiety disorder F41.1 [place] [address] [address] Jul, [place] [id number] [place] [address]28- 4[address] Jul, Lumbar disc disease M51.9 [facility] [address] [id number] Jun, Urinary tract infection without hematuria, site unspecified N39.0 ; Bilateral impacted cerumen H61.23 ; Loose stools R19.5 and Type 2 diabetes mellitus without complication, without long-term current use of insulin E11.9 [place] [address] [place] [address]- [address] Jun, [place] [facility] [id number] [place] [address] 26604- 4907 Jun, Fibromyalgia M79.7 [place] [facility] [id number] [place] [address]3620- 8[address] Jun, Breast mass, right N63.10 [place] [address] [address] Jun, Breast mass, right N63.10 [facility] [address] [id number] Jun, Breast mass, right N63.10 ; Type 2 diabetes mellitus without complication , without long-term current use of insulin E11.9 and Fibromyalgia M79.7 [place] [address] [place] [address] 87496- 2033 Jun, Gastroesophageal reflux disease without esophagitis K21.9 [facility] [id number] [place] [id number] Jun, Lumbar disc disease M51.9 [place] [address] [address] May, [facility] [id number] [id number] May, [facility] [id number] [address] May, [facility] [id number] [address] May, Lumbar disc disease M51.9 [facility] [id number] [id number] Apr, [facility] [address] [id number] Apr, Viral upper respiratory tract infection J06.9 and Impacted cerumen, bilateral H61.23 [facility] [id number][place] [id number] Apr, [facility] [address] [id number] [address] Apr, [facility] [id number][place] [id number] Apr, Lumbar disc disease M51.[address] [facility] [address] [id number] Mar, Lumbar disc disease M51.9 and Fibromyalgia M79.7 [facility] [address] [id number] [address] Mar, [facility] [address] [id number] [id number] Feb, [facility] [address] [facility] [id number] [address] Jan, Type 2 diabetes mellitus without complication, without long- term current use of insulin E11.[address] [facility] [address] [id number] Jan, Type 2 diabetes mellitus without complication, without long-term current use of insulin E11.9 ; Fibromyalgia M79.7 and Lumbar disc disease M51.9 [facility] [address] [id number][place] [id number] Jan, [facility] [address] [id number] [id number] Jan, [facility] [address] [facility] [id number][place] [address] Dec, [facility] [address] [id number][place] [id number] Dec, [facility] [address] [id number][place] [id number] Dec, [facility] [address] [id number] [address] Nov, Pre-procedure lab exam Z01.812 [facility] [address] [facility] [id number] [address] Nov, Ventral hernia without obstruction or gangrene K43.9 [facility] [address] [id number][place] [id number] Nov, [facility] [address] [id number][place] [address] Nov, [facility] [address] [id number] Nov, Ventral hernia without obstruction or gangrene K43.9 [facility] [address] [id number] Nov, Fibromyalgia M79.7 and Polyneuropathy associated with underlying disease G63 [facility] [address] [facility] [id number] [address] Oct, [facility] [address] [id number][place] [id number] Oct, [facility] [address] [id number][place] [id number] Oct, [facility] [address] [id number][place] [address] Oct, [facility] [place] [facility] [address] [id number] [place] [id number] Sep, [facility] [place] [facility] [address] [id number] [place] [address] Sep, [facility] [place] [facility] [address] [id number] [place] [address] Sep, [facility] [place] [facility] [address] [id number] [place] [address] August, [facility] [address] [facility] [id number] August, Right medial knee pain M25.561 [facility] [place] [facility] [address] [id number] [place] [address] August, [facility] [place] [facility] [address] [id number] [place] [address] August, [facility] [place] [facility] [address] [id number] [place] [address] August, [facility] [place] [facility] [address] [id number] [place] [id number] August, [facility] [place] [facility] [address] [id number] [place] [address] August, [facility] [place] [facility] [address] [id number] [place] [id number] August, [facility] [place] [facility] [address] [id number][place] [address] Jul, [facility] [place] [facility] [address] [id number] [place] [address] Jul, [facility] [place] [facility] [address] [id number] [place] [id number] Jul, [facility] [place] [facility] [address] [id number] [place] [address] Jun, [facility] [place] [facility] [address] [id number] [place] [address] Jun, [facility] [address]00565100[place] [address] May, [facility] [address]65100[place], [place] [address] May, [facility] [address]65100[place], [place] [address] May, [facility] [address]65100[place], [place] [address]32 May, [facility] [address]100[place], [place] [address] Apr, [facility] [address] [id number] Apr, Upper respiratory infection with cough and congestion J06.9 [facility] [id number] [place] [id number] Apr, [facility] [address], [place] [address] Apr, [facility] [address] [place] [address] 66166- 0460 Mar, [facility] [address], [place] [address] Mar, [facility] [address]100[place] [address] 3668 Mar, Other chronic pain G89.29 [facility] [address], [place] [address] 3[address] Mar, [facility] [address], [place] [address]- 1680 Mar, [facility] [address] [address] Feb, [facility] [address] [id number] Feb, [facility] [address] [place] [id number] Feb, Insomnia, unspecified type G47.00 and Swelling of face R22.0 [facility] [address] [address]- 6[address] Feb, [facility] [id number] [place] [address] 75385- 3201 Feb, [facility] [id number] [place] [address] 05415- 3594 Feb, [facility] [id number] [place] [address] 44357- 2706 Feb, [facility] [id number] [place] [address] 54909- 4832 Jan, [facility] [id number] [place] [address] 94175- 8051 Jan, [facility] [id number] [place] [address] 33254- 8331 Jan, Neurogenic bladder N31.9 [facility] [id number] [place] [address] 08910- 6655 Jan, [facility] [id number] [place] [address] 27296- 7490 Jan, [facility] [id number] [place] [address] 67971- 8867 Jan, [facility] [address] [id number], [place] [address]- 2040 Jan, [facility] [id number] [place] [address] 60463- 6260 Jan, Screening for breast cancer Z12.39 [facility] [address] [address]- 7660 Jan, [facility] [id number] [place] [address] 13363- 0179 Dec, 2015 Type 2 diabetes mellitus without complication, without long- term current use of insulin E11.9 ; Lumbar disc disease M51.9 ; Polyneuropathy associated with underlying disease G63 and Neurogenic bladder N31.9 [facility] [address], [place] [address]- [address] 16 Dec, 2015 [facility] [address] [place] [address] 56098- 1563 14 Dec, 2015 Other chronic pain G89.29 [facility] [address] [place] [address] 24746- 8062 Dec, [place] [id number] [place] [address] 79172- 8763 Nov, [place] [id number] [place] [address] 05933- 4650 Nov, [place] [id number] [place] [address] 04335- 3250 Nov, Type 2 diabetes mellitus without complication, [...] anemia, unspecified iron deficiency anemia type D50.9 [place] [address] [address]- 0865 Nov, [facility] [address], [place] [address]- 1636 Nov, [place] [id number] [place] [address] 70535- 1366 Nov, [place] [address] [address]- 1743 Nov, [facility] [id number] [place] [address] 19504- 4210 Nov, [facility] [address] [id number] [address]- 6209 Nov, [facility] [address] Nov, [facility] [address] [address]- 4497 Jul, [facility] [address] [place] [address] 23022- 5427 Jul, [facility] [address] [place] [address] 27225- 1345 August, [facility] [address] [place] [address] 29339- 6516 Jun, [facility] [address] [address]- 0983 Oct, IMMUNIZATIONS No Known Immunizations SOCIAL HISTORY Never Assessed REASON FOR VISIT TRULICITY note PLAN OF CARE VITAL SIGNS MEDICATIONS Medication Instructions Dosage Frequency Start Date End Date Duration Status Victoza 18 MG/3ML 0.6mg subq daily x7 days, then 1.2mg daily x7 days then 1.8mg daily Jan, Active RESULTS No Results PROCEDURES No Known [...]
--- OUTSIDE RECORDS SUMMARY | 2018-01-22 14:19 | XMS REPORT ---
Author Author LAURIE MAHAJAN Organization [facility] Address [address] [place] [address] Care Team Providers Care Internal Grinder Set Up Operator Name Role Phone LAURIE MAHAJAN Unavailable PROBLEMS Type Condition ICD9-CM Code ETF36-RL Code Onset Dates Condition Status SNOMED Code Problem Lumbar disc disease M51.9 Active 00777520 Problem Neurogenic bladder N31.9 Active 489648053 Problem Polyneuropathy associated with underlying disease G63 Active 586024258 Problem Anxiety F41.9 Active 87267723 Problem Generalized anxiety disorder F41.1 Active 65247406 Problem Insomnia, unspecified type G47.00 Active 219354822 Problem Type 2 diabetes mellitus without complication, without long-term current use of insulin E11.9 Active 716808454 Problem Gastroesophageal reflux disease without esophagitis K21.9 Active 786277167 Problem Other chronic pain G89.29 Active 80494309 Problem Psychosis, unspecified psychosis type F29 Active 24243404 Problem Fibromyalgia M79.7 Active 230223215 Problem Nicotine abuse Z72.0 Active 64710926 Problem Irritable bowel syndrome with diarrhea K58.0 Active 479833352 Problem Chronic pain disorder G89.4 Active 653237261 Problem Meniere disease, unspecified laterality H81.09 Active 66234716 ALLERGIES No Information ENCOUNTERS Encounter Location Date Diagnosis [facility] [id number] [address] Sep, Lumbar disc disease M51.9 [facility] [id number] [place] [address]79 Sep, [facility] [address] [place] [address]- 2968 August, Lumbar disc disease M51.9 [facility] [address] [address] August, [facility] [place] [address] [place] [id number] August, Meniere''s disease, unspecified laterality H81.09 and Type 2 diabetes mellitus without complication, without long-term current use of insulin E11.9 [place] [address] [address] August, BMI 40.0-44.9, adult Z68.41 and Anxiety F41.9 [place] [address] [place] [address] 15826- 0032 Jul, Lumbar disc disease M51.9 [place] [id number] [place] [address] 58347- 9586 Jul, Generalized anxiety disorder F41.1 [place] [id number] [place] [address] 85050- 0975 Jul, [place] [id number] [place] [address] 93425- 0570 Jul, Lumbar disc disease M51.[address] [id number] Jun, Urinary tract infection without hematuria, site unspecified N39.0 ; Bilateral impacted cerumen H61.23 ; Loose stools R19.5 and Type 2 diabetes mellitus without complication, without long-term current use of insulin E11.9 [place] [address] [address] Jun, [place] [address] [place] [address] 95707- 1782 Jun, Fibromyalgia M79.7 [place] [id number] [place] [address] 89213- 2142 Jun, Breast mass, right N63.10 [place] [address] [place] [address] 23520- 0237 Jun, Breast mass, right N63.10 [facility] [address] [place] [id number] Jun, Breast mass, right N63.10 ; Type 2 diabetes mellitus without complication , without long-term current use of insulin E11.9 and Fibromyalgia M79.7 [facility] [address] [address] Jun, Gastroesophageal reflux disease without esophagitis K21.9 [facility] [id number] [place] [address] [id number] Jun, Lumbar disc disease M51.9 [facility] [address] [place] [address] 04734- 1707 May, [facility] [id number] [place] [address] [id number] May, [facility] [id number] [place] [address] [id number] May, [facility] [id number] [place] [address] [id number] May, Lumbar disc disease M51.9 [facility] [id number] [place] [id number] Apr, [facility] [address] [id number] Apr, Viral upper respiratory tract infection J06.9 and Impacted cerumen, bilateral H61.23 [facility] [id number] [place] [address] [id number] Apr, [facility] [id number] [address] Apr, [facility] [id number] [place] [id number] Apr, Lumbar disc disease M51.[address] [id number] Mar, Lumbar disc disease M51.9 and Fibromyalgia M79.7 [facility] [address] [place] [address] 10658 2546 Mar, [facility] [address] [id number] [id number] Feb, [facility] [id number] [address] 2546 Jan, Type 2 diabetes mellitus without complication, without long- term current use of insulin E11.9 [facility] [address] [place] [id number] Jan, Type 2 diabetes mellitus without complication, without long-term current use of insulin E11.9 ; Fibromyalgia M79.7 and Lumbar disc disease M51.9 [facility] [address] [id number] [id number] Jan, [facility] [id number] [id number] Jan, [facility] [id number] [address] 2546 Dec, [facility] [address] [id number] [id number] Dec, [facility] [address] [id number] [id number] Dec, [facility] [address] [id number] [id number] Nov, Pre-procedure lab exam Z01.812 [facility] [id number] [address] Nov, Ventral hernia without obstruction or gangrene K43.9 [facility] [address] [id number] [id number] Nov, [facility] [address] [id number][place] [id number] Nov, [facility] [address] [place] [id number] Nov, Ventral hernia without obstruction or gangrene K43.9 [facility] [address] [place] [id number] Nov, Fibromyalgia M79.7 and Polyneuropathy associated with underlying disease G63 [facility] [id number] [address] Oct, [facility] [address] [id number] [id number] Oct, [facility] [id number] [id number] Oct, [facility] [place] [facility] [address] [id number] [id number] Oct, [facility] [id number] [id number] Sep, [facility] [address], [place] [address] Sep, [facility] [id number], [place] [address] Sep, [facility] [id number], [place] [address] August, [facility] [address] [place] [id number] August, Right medial knee pain M25.561 [facility] [id number] [address] August, [facility] [address], [place] [address] August, [facility] [id number] [address]- 2546 August, [facility] [address] [id number] [id number] August, [facility] [id number] [address] August, [facility] [address] [id number] [id number] August, [facility] [address] [id number][place] [id number] Jul, [facility] [address] [facility] [id number] [place] [address] Jul, [facility] [address] [id number] [id number] Jul, [facility] [address] [facility] [id number] [place] [address]- [address] Jun, [facility] [address] [id number] [place] [address]- 3084 Jun, [facility] [id number] [place] [address]- 2309 May, [facility] [id number] [place] [address]- [address] May, [facility] [id number] [place] [address]- 1575 May, [facility] [id number] [address] May, [facility] [address], [place] [address] Apr, [facility] [address] [place] [id number] Apr, Upper respiratory infection with cough and congestion J06.9 [facility] [id number] [id number] Apr, [facility] [id number] [address]- 5844 Apr, [facility] [id number] [address]- 4[address] Mar, [facility] [id number] [address]- 9706 Mar, [facility] [id number] [address]- 0791 Mar, Other chronic pain G89.29 [facility] [id number] [place] [address] 55759- 6357 Mar, [facility] [id number] [place] [address] 49433- 0191 Mar, [facility] [id number] [place] [address] 48069- 6488 Feb, [facility] [id number] [place] [address] 20110- 5765 Feb, [facility] [address] [place] [id number] Feb, Insomnia, unspecified type G47.00 and Swelling of face R22.0 [facility] [id number] [place] [address] 95159- 7722 Feb, [facility] [id number] [place] [address] 04484- 7646 Feb, [facility] [id number] [place] [address] 62184- 8289 Feb, [facility] [id number] [place] [address] 81678- 2116 Feb, [facility] [id number] [place] [address] 59214- 7989 24 Jan, 2016 [facility] [id number] [place] [address] 70816- 3075 17 Jan, 2016 [facility] [id number] [place] [address] 12530- 8859 14 Jan, 2016 Neurogenic bladder N31.9 [facility] [id number] [place] [address] 40251- 4430 10 Jan, 2016 [facility] [id number] [place] [address] 06067- 5822 07 Jan, 2016 [facility] [id number] [place] [address] 00637- 9215 Jan, [place] [address], [place] [address]- 1730 Jan, [place] [id number] [place] [id number] Jan, Screening for breast cancer Z12.39 [place] [id number] [place] [address] 00502- 1654 Jan, [place] [id number] [place] [address] 02533- 1550 Dec, Type 2 diabetes mellitus without complication, without long- term current use of insulin E11.9 ; Lumbar disc disease M51.9 ; Polyneuropathy associated with underlying disease G63 and Neurogenic bladder N31.9 [place] [address] [place] [address] 21393- 0855 16 Dec, 2015 [place] [id number] [place] [address] 47838- 2961 14 Dec, 2015 Other chronic pain G89.29 [place] [id number] [place] [address] 50689- 1397 Dec, [place] [id number] [place] [address] 76257- 2411 Nov, [place] [address] [address]- 1319 Nov, [place] [id number] [place] [address] 19524- 6303 Nov, Type 2 diabetes mellitus without complication, [...] anemia, unspecified iron deficiency anemia type D50.9 [place] [id number], [place] [address]- [address]67 Nov, [facility] [address], [place] [address]- 8493 Nov, [facility] [address], [place] [address]- 3265 Nov, [facility] [address], [place] [address]- 4214 Nov, [facility] [address] [facility] [id number] [address]- 7222 Nov, [facility] [address] [address]- 6947 Nov, [facility] [address], [place] [address]- 8907 Nov, [facility] [address], [place] [address]- 3879 Jul, [facility] [address], [place] [address]- 9933 Jul, [facility] [address], [place] [address]- 0482 August, [facility] [address], [place] [address]- 9906 Jun, [facility] [address], [place] [address]- 5918 Oct, IMMUNIZATIONS No Known Immunizations SOCIAL HISTORY Never Assessed REASON FOR VISIT Controlled Med Refill PLAN OF CARE VITAL SIGNS MEDICATIONS Medication Instructions Dosage Frequency Start Date End Date Duration Status Hydrocodone-Acetaminophen 7.5-325 MG Orally 2 times a day 1 tablet 12h 05 Jun, 2017 28 days Active RESULTS No Results [...]
--- OUTSIDE RECORDS SUMMARY | 2018-01-22 14:19 | XMS REPORT ---
Author Author LAURIE MAHAJAN Organization [facility] Address [address] [place] [address] Care Team Providers Care Art Objects Salesperson Name Role Phone LAURIE MAHAJAN Unavailable PROBLEMS Type Condition ICD9-CM Code [id number] Code Onset Dates Condition Status SNOMED Code Problem Lumbar disc disease M51.9 Active 03575216 Problem Neurogenic bladder N31.9 Active 605232416 Problem Polyneuropathy associated with underlying disease G63 Active 424471784 Problem Anxiety F41.9 Active 12333189 Problem Generalized anxiety disorder F41.1 Active 95590951 Problem Insomnia, unspecified type G47.00 Active 346307753 Problem Type 2 diabetes mellitus without complication, without long-term current use of insulin E11.9 Active 337561604 Problem Gastroesophageal reflux disease without esophagitis K21.9 Active 584713681 Problem Other chronic pain G89.29 Active 09643177 Problem Psychosis, unspecified psychosis type F29 Active 13897055 Problem Fibromyalgia M79.7 Active 784631800 Problem Nicotine abuse Z72.0 Active 91322852 Problem Irritable bowel syndrome with diarrhea K58.0 Active 278036172 Problem Chronic pain disorder G89.4 Active 358071973 Problem Meniere disease, unspecified laterality H81.09 Active 17840783 ALLERGIES No Information ENCOUNTERS Encounter Location Date Diagnosis [facility] [id number] [address] Sep, Lumbar disc disease M51.9 [facility] [id number] [place] [address] Sep, [facility] [id number] [place] [address] 23603- 1398 August, Lumbar disc disease M51.9 [facility] [id number] [address] August, [facility] [address] [place] [id number] August, Meniere''s disease, unspecified laterality H81.09 and Type 2 diabetes mellitus without complication, without long-term current use of insulin E11.9 [place] [address] [address] August, BMI 40.0-44.9, adult Z68.41 and Anxiety F41.9 [place] [id number] [place] [address]91- 6856 Jul, Lumbar disc disease M51.9 [place] [id number] [place] [address] 73948- 1759 Jul, Generalized anxiety disorder F41.1 [place] [id number] [place] [address] 53489- 5849 Jul, [place] [id number] [place] [address] 95169- 5504 Jul, Lumbar disc disease M51.[address] [id number] Jun, Urinary tract infection without hematuria, site unspecified N39.0 ; Bilateral impacted cerumen H61.23 ; Loose stools R19.5 and Type 2 diabetes mellitus without complication, without long-term current use of insulin E11.9 [place] [id number] [address] Jun, [place] [address] [place] [address] 88642- 8049 Jun, Fibromyalgia M79.7 [place] [id number] [place] [address] 87043- 2349 Jun, Breast mass, right N63.10 [place] [address] [place] [address] 43776- 2355 Jun, Breast mass, right N63.10 [facility] [address] [place] [id number] Jun, Breast mass, right N63.10 ; Type 2 diabetes mellitus without complication , without long-term current use of insulin E11.9 and Fibromyalgia M79.7 [facility] [address] [address] Jun, Gastroesophageal reflux disease without esophagitis K21.9 [facility] [place] [id number] [place] [id number] Jun, Lumbar disc disease M51.9 [facility] [id number] [place] [address] 16806- 4679 May, [facility] [place] [id number] [place] [address] [id number] May, [facility] [place] [id number] [place] [id number] May, [facility] [place] [id number] [place] [address] [id number] May, Lumbar disc disease M51.9 [facility] [place] [id number] [place] [id number] Apr, [facility] [address] [id number] Apr, Viral upper respiratory tract infection J06.9 and Impacted cerumen, bilateral H61.23 [facility] [place] [id number] [place] [address] [id number] Apr, [facility] [id number] [address] Apr, [facility] [place] [id number] [place] [id number] Apr, Lumbar disc disease M51.[address] [id number] Mar, Lumbar disc disease M51.9 and Fibromyalgia M79.7 [facility] [id number] [place] [address]21 2546 Mar, [facility] [address] [id number] [id number] Feb, [facility] [id number], [place] [address] 2546 Jan, Type 2 diabetes mellitus without complication, without long- term current use of insulin E11.9 [facility] [address] [place] [id number] Jan, Type 2 diabetes mellitus without complication, without long-term current use of insulin E11.9 ; Fibromyalgia M79.7 and Lumbar disc disease M51.9 [facility] [address] [id number][place] [id number] Jan, [facility] [id number] [id number] Jan, [facility] [id number] [address] 2546 Dec, [facility] [address] [id number] [id number] Dec, [facility] [address] [id number][place] [id number] Dec, [facility] [address] [id number] [address] Nov, Pre-procedure lab exam Z01.812 [facility] [id number] [address] Nov, Ventral hernia without obstruction or gangrene K43.9 [facility] [address] [id number][place] [id number] Nov, [facility] [address] [id number][place] [id number] Nov, [facility] [address] [place] [id number] Nov, Ventral hernia without obstruction or gangrene K43.9 [facility] [address] [place] [id number] Nov, Fibromyalgia M79.7 and Polyneuropathy associated with underlying disease G63 [facility] [id number] [address] Oct, [facility] [address] [id number][place] [id number] Oct, [facility] [id number] [id number] Oct, [facility] [place] [facility] [address] [id number][place] [id number] Oct, [facility] [address] [id number] [id number] Sep, [facility] [id number], [place] [address] Sep, [facility] [id number], [place] [address] Sep, [facility] [id number], [place] [address] August, [facility] [address] [place] [id number] August, Right medial knee pain M25.561 [facility] [id number] [address] August, [facility] [id number], [place] [address] August, [facility] [id number], [place] [address] 2546 August, [facility] [address] [id number], [place] [id number] August, [facility] [id number] [address] August, [facility] [address] [id number], [place] [id number] August, [facility] [place] [address] [id number][place] [address] Jul, [facility] [address] [facility] [id number] [place] [address] Jul, [facility] [address] [id number] [id number] Jul, [facility] [address] [facility] [id number] [place] [address]- 1468 Jun, [facility] [address] [id number] [place] [address]- 5[address] Jun, [facility] [id number] [place] [address]- 2502 May, [facility] [address] [id number] [place] [address]- [address]17 May, [facility] [id number] [place] [address]- 2301 May, [facility] [id number] [address]- 3913 May, [facility] [id number], [place] [address]- [address] Apr, [facility] [address] [place] [id number] Apr, Upper respiratory infection with cough and congestion J06.9 [facility] [id number][place] [id number] Apr, [facility] [id number] [address]- [address] Apr, [facility] [id number], [place] [address] Mar, [facility] [id number] [address] Mar, [facility] [id number], [place] [address]- 7395 Mar, Other chronic pain G89.29 [facility] [id number] [place] [address] 74114- 6650 Mar, [facility] [id number] [place] [address] 15809- 7702 Mar, [facility] [id number] [place] [address] 37918- 2162 Feb, [facility] [id number] [place] [address] 74195- 2099 Feb, [facility] [address] [place] [address] Feb, Insomnia, unspecified type G47.00 and Swelling of face R22.0 [facility] [id number] [place] [address] 84310- 3457 Feb, [facility] [id number] [place] [address] 76071- 9742 Feb, [facility] [id number] [place] [address] 78147- 0652 Feb, [facility] [id number] [place] [address] 60303- 1572 Feb, [facility] [id number] [place] [address] 03179- 0092 24 Jan, 2016 [facility] [id number] [place] [address] 94658- 4001 17 Jan, 2016 [facility] [id number] [place] [address] 43386- 4915 14 Jan, 2016 Neurogenic bladder N31.9 [facility] [id number] [place] [address] 01890- 3442 10 Jan, 2016 [facility] [id number] [place] [address] 10931- 2048 07 Jan, 2016 [facility] [id number] [place] [address] 18447- 6937 Jan, [place] [id number] [address]- 39[address] Jan, [place] [id number] [place] [address] Jan, Screening for breast cancer Z12.39 [place] [id number] [place] [address] 34588- 9196 Jan, [place] [id number] [place] [address] 56221- 6227 Dec, Type 2 diabetes mellitus without complication, without long- term current use of insulin E11.9 ; Lumbar disc disease M51.9 ; Polyneuropathy associated with underlying disease G63 and Neurogenic bladder N31.9 [place] [address] [place] [address] 14237- 9513 16 Dec, 2015 [place] [id number] [place] [address] 80233- 1534 14 Dec, 2015 Other chronic pain G89.29 [place] [id number] [place] [address] 63894- 6989 Dec, [place] [id number] [place] [address] 13160- 3923 Nov, [place] [id number] [address]- 0458 Nov, [place] [id number] [place] [address] 84354- 8492 Nov, Type 2 diabetes mellitus without complication, [...] iron deficiency anemia type D50.9 [place] [id number], [place] [address]- [address] Nov, [facility] [id number], [place] [address]- 3084 Nov, [facility] [id number], [place] [address]- 6888 Nov, [facility] [id number], [place] [address]- 6167 Nov, [facility] [address] [facility] [id number] [address]- 2039 Nov, [facility] [id number], [place] [address]- 8582 Nov, [facility] [id number], [place] [address]- 8680 Nov, [facility] [id number], [place] [address]- 6453 Jul, [facility] [id number], [place] [address]- 7555 Jul, [facility] [id number], [place] [address]- 0677 August, [facility] [id number], [place] [address]- 1408 Jun, [facility] [id number] [address]- 9304 Oct, IMMUNIZATIONS No Known Immunizations SOCIAL HISTORY [...]
--- OUTSIDE RECORDS SUMMARY | 2018-01-22 14:20 | XMS REPORT ---
Author Author LAURIE MAHAJAN Organization [facility] Address [address] [place] [address] Care Team Providers Care Financial Director Name Role Phone LAURIE MAHAJAN Unavailable PROBLEMS Type Condition ICD9-CM Code WBO47-GE Code Onset Dates Condition Status SNOMED Code Problem Lumbar disc disease M51.9 Active 16980130 Problem Neurogenic bladder N31.9 Active 225391873 Problem Polyneuropathy associated with underlying disease G63 Active 582173128 Problem Anxiety F41.9 Active 89645681 Problem Generalized anxiety disorder F41.1 Active 12530430 Problem Insomnia, unspecified type G47.00 Active 672045553 Problem Type 2 diabetes mellitus without complication, without long-term current use of insulin E11.9 Active 779685389 Problem Gastroesophageal reflux disease without esophagitis K21.9 Active 854525621 Problem Other chronic pain G89.29 Active 45655185 Problem Psychosis, unspecified psychosis type F29 Active 41351324 Problem Fibromyalgia M79.7 Active 191340056 Problem Nicotine abuse Z72.0 Active 57048202 Problem Irritable bowel syndrome with diarrhea K58.0 Active 654717102 Problem Chronic pain disorder G89.4 Active 887007064 Problem Meniere disease, unspecified laterality H81.09 Active 70787824 ALLERGIES No Information ENCOUNTERS Encounter Location Date Diagnosis [facility] [address] [facility] [id number] [address] Sep, [place] [address] [id number] [address] August, Lumbar disc disease M51.9 [facility] [address] [id number] [address] 15 Aug, 2017 [facility] [address] [place] [id number] August, Meniere''s disease, unspecified laterality H81.09 and Type 2 diabetes mellitus without complication, without long-term current use of insulin E11.9 [place] [address] [place] [address]- 2945 August, BMI 40.0-44.9, adult Z68.41 and Anxiety F41.9 [place] [address] [place] [address] [id number] [place] [address]253- 9658 Jul, Lumbar disc disease M51.9 [place] [address] [id number] [place] [address] 00153- 6758 Jul, Generalized anxiety disorder F41.1 [place] [address] [id number] [place] [address]1389- 6892 Jul, [place] [address] [id number] [place] [address] 37925- 3810 Jul, Lumbar disc disease M51.9 [facility] [address] [place] [id number] Jun, Urinary tract infection without hematuria, site unspecified N39.0 ; Bilateral impacted cerumen H61.23 ; Loose stools R19.5 and Type 2 diabetes mellitus without complication, without long-term current use of insulin E11.9 [place] [address] [place] [address] 46124- 2971 Jun, [place] [address] [id number] [place] [address]8566- 0106 Jun, Fibromyalgia M79.7 [place] [address] [place] [address] 38103- 3547 Jun, Breast mass, right N63.10 [place] [address] [id number] [place] [address] 06608- 5883 Jun, Breast mass, right N63.10 [facility] [address] [place] [id number] Jun, Breast mass, right N63.10 ; Type 2 diabetes mellitus without complication , without long-term current use of insulin E11.9 and Fibromyalgia M79.7 [facility] [address] [address] Jun, Gastroesophageal reflux disease without esophagitis K21.9 [facility] [address] [id number] [id number] Jun, Lumbar disc disease M51.9 [facility] [id number] [place] [address] 16438- 3351 May, [facility] [id number] [place] [id number] May, [facility] [id number] [place] [address] [id number] May, [facility] [id number] [place] [id number] May, Lumbar disc disease M51.9 [facility] [id number] [place] [id number] Apr, [facility] [address] [place] [address] Apr, Viral upper respiratory tract infection J06.9 and Impacted cerumen, bilateral H61.23 [facility] [id number] [id number] Apr, [facility] [address] [place] [address] [id number]- 9895 Apr, [facility] [id number] [place] [address] [id number] Apr, Lumbar disc disease M51.9 [facility] [address] [place] [address] Mar, Lumbar disc disease M51.9 and Fibromyalgia M79.7 [facility] [address], [place] [address] Mar, [facility] [id number] [place] [id number] Feb, [facility] [address] [facility] [id number], [place] [address] Jan, Type 2 diabetes mellitus without complication, without long- term current use of insulin E11.9 [facility] [address] [place] [id number] Jan, Type 2 diabetes mellitus without complication, without long-term current use of insulin E11.9 ; Fibromyalgia M79.7 and Lumbar disc disease M51.9 [facility] [id number] [address] Jan, [facility] [id number] [id number] Jan, [facility] [id number], [place] [address] Dec, [facility] [id number] [id number] Dec, [facility] [id number] [address] Dec, [facility] [id number] [id number] Nov, Pre-procedure lab exam Z01.812 [facility] [address] [id number] [address] Nov, Ventral hernia without obstruction or gangrene K43.9 [facility] [address] [id number] [address] Nov, [facility] [address] [id number][place] [id number] Nov, [facility] [address] [place] [address] Nov, Ventral hernia without obstruction or gangrene K43.9 [facility] [address] [place] [address] Nov, Fibromyalgia M79.7 and Polyneuropathy associated with underlying disease G63 [facility] [address] [id number] [place] [address] Oct, [facility] [place] [facility] [address] [id number] [place] [id number] Oct, [facility] [place] [facility] [address] [id number][place] [id number] Oct, [facility] [place] [facility] [address] [id number] [address] Oct, [facility] [place] [facility] [address] [id number] [address] Sep, [facility] [place] [facility] [address] [id number] [place] [address] Sep, [facility] [place] [facility] [address] [id number], [place] [address] Sep, [facility] [place] [facility] [address] [id number], [place] [address] August, [facility] [address] [place] [id number] August, Right medial knee pain M25.561 [facility] [place] [facility] [address] [id number] [place] [address] August, [facility] [place] [facility] [address] [id number], [place] [address] August, [facility] [place] [facility] [address] [id number], [place] [address] 2546 August, [facility] [place] [facility] [address] [id number][place] [id number] August, [facility] [place] [facility] [address] [id number] [place] [address] August, [facility] [place] [facility] [address] [id number] [id number] August, [facility] [place] [facility] [address] [id number][place] [id number] Jul, [facility] [place] [facility] [address] [id number], [place] [address] Jul, [facility] [id number] [id number] Jul, [facility] [address], [place] [address] Jun, [facility] [address], [place] [address] Jun, [facility] [id number], [place] [address] May, [facility] [address], [place] [address] May, [facility] [address], [place] [address] 65[address] May, [facility] [address], [place] [address] 9[address] May, [facility] [id number], [place] [address] Apr, [facility] [address] [place] [address] Apr, Upper respiratory infection with cough and congestion J06.9 [facility] [id number] [address] Apr, [facility] [id number], [place] [address] Apr, [facility] [id number], [place] [address] 6567 Mar, [facility] [address], [place] [address] Mar, [facility] [id number], [place] [address] Mar, Other chronic pain G89.29 [facility] [address], [place] [address] Mar, [facility] [id number], [place] [address] 9587 Mar, [facility] [id number] [place] [address] 24081- 5246 Feb, [facility] [id number] [place] [address] 83586- 1347 Feb, [facility] [address] [place] [address] Feb, Insomnia, unspecified type G47.00 and Swelling of face R22.0 [facility] [id number] [place] [address] 33794- 9021 Feb, [facility] [id number] [place] [address] 69587- 5872 Feb, [facility] [id number] [place] [address] 18896- 3477 Feb, [facility] [id number] [place] [address] 32790- 6485 Feb, [facility] [id number] [place] [address] 64681- 6452 24 Jan, 2016 [facility] [id number] [place] [address] 34060- 1394 Jan, [facility] [id number] [place] [address] 94236- 9591 14 Jan, 2016 Neurogenic bladder N31.9 [facility] [id number] [place] [address] 31473- 7647 10 Jan, 2016 [facility] [id number] [place] [address] 08339- 8009 07 Jan, 2016 [facility] [id number], [place] [address]- 3095 07 Jan, 2016 [facility] [address] [place] [address] 56368- 6556 Jan, [place] [address], [place] [address]91 Jan, Screening for breast cancer Z12.39 [place] [address] [place] [address] 50154- 5192 Jan, [place] [id number] [place] [address] 82950- 3178 Dec, Type 2 diabetes mellitus without complication, without long- term current use of insulin E11.9 ; Lumbar disc disease M51.9 ; Polyneuropathy associated with underlying disease G63 and Neurogenic bladder N31.9 [place] [id number] [place] [address] 64428- 7323 16 Dec, 2015 [place] [id number] [place] [address] 33402- 0758 14 Dec, 2015 Other chronic pain G89.29 [place] [id number] [place] [address] 29389- 5671 Dec, [place] [id number] [place] [address] 56696- 0626 Nov, [place] [id number] [place] [address] 43426- 9368 Nov, [place] [id number] [place] [address] 13032- 9376 Nov, Type 2 diabetes mellitus without complication, [...] anemia, unspecified iron deficiency anemia type D50.9 [place] [address], [place] [address]- 1617 Nov, [place] [address] [id number], [place] [address]- 7967 Nov, [facility] [address], [place] [address]- 2397 Nov, [facility] [address], [place] [address]- 0791 Nov, [facility] [address], [place] [address]- 5148 Nov, [facility] [address], [place] [address]- 4649 Nov, [facility] [address], [place] [address]- 6014 Nov, [facility] [address], [place] [address]- 7650 Jul, [facility] [address], [place] [address]- 3605 Jul, [facility] [address], [place] [address]- 3759 August, [facility] [address], [place] [address]- 8583 Jun, [facility] [id number], [place] [address]- 3489 Oct, IMMUNIZATIONS No Known Immunizations SOCIAL HISTORY Never Assessed REASON FOR VISIT Controlled Med Refill PLAN OF CARE VITAL SIGNS MEDICATIONS Medication Instructions Dosage Frequency Start Date End Date Duration Status Hydrocodone-Acetaminophen 7.5-325 MG Orally 2 times a day 1 tablet 12h Apr, 28 days Active RESULTS No Results PROCEDURES [...]
--- OUTSIDE RECORDS SUMMARY | 2018-01-22 14:20 | XMS REPORT ---
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 Name Role Phone LAURIE MAHAJAN Unavailable PROBLEMS Type Condition ICD9-CM Code MEI91-XU Code Onset Dates Condition Status SNOMED Code Problem Lumbar disc disease M51.9 Active 25928268 Problem Neurogenic bladder N31.9 Active 841881082 Problem Polyneuropathy associated with underlying disease G63 Active 598960045 Problem Anxiety F41.9 Active 89600638 Problem Generalized anxiety disorder F41.1 Active 17670373 Problem Insomnia, unspecified type G47.00 Active 781829430 Problem Type 2 diabetes mellitus without complication, without long-term current use of insulin E11.9 Active 387453421 Problem Gastroesophageal reflux disease without esophagitis K21.9 Active 502488127 Problem Other chronic pain G89.29 Active 43633360 Problem Psychosis, unspecified psychosis type F29 Active 68307484 Problem Fibromyalgia M79.7 Active 859691842 Problem Nicotine abuse Z72.0 Active 38218283 Problem Irritable bowel syndrome with diarrhea K58.0 Active 662343648 Problem Chronic pain disorder G89.4 Active 171117438 Problem Meniere disease, unspecified laterality H81.09 Active 30214728 ALLERGIES No Information ENCOUNTERS Encounter Location Date Diagnosis [facility] [place] [address] [facility] [id number] [address] Sep, [place] [address] [id number] [address] August, Lumbar disc disease M51.9 [facility] [place] [address] [id number], [place] [address] 15 Aug, 2017 [facility] [address] [place] [id number] August, Meniere''s disease, unspecified laterality H81.09 and Type 2 diabetes mellitus without complication, without long-term current use of insulin E11.9 [place] [id number] [place] [address] 3[address] August, BMI 40.0-44.9, adult Z68.41 and Anxiety F41.9 [place] [id number] [place] [address] 8[address]13- 6125 Jul, Lumbar disc disease M51.9 [place] [id number] [place] [address] 86197- 5327 Jul, Generalized anxiety disorder F41.1 [place] [id number] [place] [address] 78271- 6156 Jul, [place] [id number] [place] [address] 16410- 1036 Jul, Lumbar disc disease M51.9 [facility] [address] [place] [id number] Jun, Urinary tract infection without hematuria, site unspecified N39.0 ; Bilateral impacted cerumen H61.23 ; Loose stools R19.5 and Type 2 diabetes mellitus without complication, without long-term current use of insulin E11.9 [place] [id number] [place] [address]114- 6965 Jun, [place] [id number] [place] [address] 11018- 5428 Jun, Fibromyalgia M79.7 [place] [id number] [place] [address] 90974- 0552 Jun, Breast mass, right N63.10 [place] [id number] [place] [address] 70863- 9084 Jun, Breast mass, right N63.10 [facility] [address] [place] [address] Jun, Breast mass, right N63.10 ; Type 2 diabetes mellitus without complication , without long-term current use of insulin E11.9 and Fibromyalgia M79.7 [facility] [place] [address] [address] Jun, Gastroesophageal reflux disease without esophagitis K21.9 [facility] [address] [id number] [id number] Jun, Lumbar disc disease M51.9 [facility] [place] [id number] [place] [address] 86030- 7265 May, [facility] [id number] [place] [address] [id number] May, [facility] [id number] [place] [id number] May, [facility] [id number] [place] [id number] May, Lumbar disc disease M51.9 [facility] [id number] [place] [id number] Apr, [facility] [address] [place] [id number] Apr, Viral upper respiratory tract infection J06.9 and Impacted cerumen, bilateral H61.23 [facility] [id number] [id number] Apr, [facility] [place] [id number] [place] [address] [id number]- 9557 Apr, [facility] [id number] [place] [address] [id number] Apr, Lumbar disc disease M51.9 [facility] [address] [place] [id number] Mar, Lumbar disc disease M51.9 and Fibromyalgia M79.7 [facility] [place] [address], [place] [address] Mar, [facility] [id number] [place] [id number] Feb, [facility] [place] [address] [facility] [id number], [place] [address] Jan, Type 2 diabetes mellitus without complication, without long- term current use of insulin E11.9 [facility] [address] [place] [id number] Jan, Type 2 diabetes mellitus without complication, without long-term current use of insulin E11.9 ; Fibromyalgia M79.7 and Lumbar disc disease M51.9 [facility] [id number] [id number] Jan, [facility] [id number][place] [id number] Jan, [facility] [place] [id number], [place] [address] Dec, [facility] [id number], [place] [id number] Dec, [facility] [id number][place] [id number] Dec, [facility] [id number][place] [id number] Nov, Pre-procedure lab exam Z01.812 [facility] [place] [address] [id number], [place] [address] Nov, Ventral hernia without obstruction or gangrene K43.9 [facility] [address] [id number] [address] Nov, [facility] [address] [id number] [address] Nov, [facility] [address] [id number] Nov, Ventral hernia without obstruction or gangrene K43.9 [facility] [address] [id number] Nov, Fibromyalgia M79.7 and Polyneuropathy associated with underlying disease G63 [facility] [place] [address] [id number] [place] [address] Oct, [facility] [place] [facility] [address] [id number] [place] [id number] Oct, [facility] [place] [facility] [address] [id number], [place] [id number] Oct, [facility] [place] [facility] [address] [id number] [address] Oct, [facility] [place] [facility] [address] [id number] [id number] Sep, [facility] [place] [facility] [address] [id number] [place] [address] Sep, [facility] [place] [facility] [address] [id number], [place] [address]46 Sep, [facility] [place] [facility] [address] [id number], [place] [address] August, [facility] [address] [id number] August, Right medial knee pain M25.561 [facility] [place] [facility] [address] [id number] [place] [address] 1406 August, [facility] [place] [facility] [address] [id number], [place] [address] August, [facility] [place] [facility] [address] [id number], [place] [address] 2546 August, [facility] [place] [facility] [address] [id number], [place] [id number] August, [facility] [place] [facility] [address] [id number] [place] [address] August, [facility] [place] [facility] [address] [id number], [place] [id number] August, [facility] [place] [facility] [address] [id number], [place] [id number] Jul, [facility] [place] [facility] [address] [id number], [place] [address]- [address] Jul, [facility] [id number], [place] [id number] Jul, [facility] [place] [facility] [address]00565100[place], [place] [address] Jun, [facility] [place] [facility] [address]00565100[place], [place] [address] 4772 Jun, [facility] [address] [id number], [place] [address] 6158 May, [facility] [address]00565100[place], [place] [address] 0861 May, [facility] [address]00565100[place], [place] [address] 4772 May, [facility] [place] [facility] [address]00565100[place], [place] [address] 4602 May, [facility] [place] [facility] [address] [id number], [place] [address] 0919 Apr, [facility] [address] [id number] Apr, Upper respiratory infection with cough and congestion J06.9 [facility] [id number], [place] [address] Apr, [facility] [address] [id number], [place] [address] Apr, [facility] [address] [id number], [place] [address]- 5369 Mar, [facility] [place] [facility] [address]00565100[place], [place] [address]894 Mar, [facility] [address] [id number], [place] [address] 9692 Mar, Other chronic pain G89.29 [facility] [address]00565100[place], [place] [address] Mar, [facility] [address] [id number] [address] Mar, [facility] [id number] [place] [address]85- 8724 Feb, [facility] [id number] [place] [address] 67446- 8357 Feb, [facility] [address] [place] [id number] Feb, Insomnia, unspecified type G47.00 and Swelling of face R22.0 [facility] [place] [facility] [id number] [place] [address] 08828- 3661 Feb, [facility] [id number] [place] [address] 42037- 2237 Feb, [facility] [id number] [place] [address] 99067- 3561 Feb, [facility] [place] [facility] [id number] [place] [address] 47418- 2356 Feb, [facility] [place] [facility] [id number] [place] [address] 58429- 4888 [address], [address] [facility] [id number] [place] [address] 04565- 0679 Jan, [facility] [place] [facility] [id number] [place] [address] 96272- 2792 14 Jan, 2016 Neurogenic bladder N31.9 [facility] [place] [facility] [id number] [place] [address] 92911- 6600 10 Jan, 2016 [facility] [place] [facility] [id number] [place] [address] 50726- 4962 07 Jan, 2016 [facility] [place] [facility] [id number], [place] [address]- 7589 07 Jan, 2016 [facility] [place] [facility] [id number] [place] [address] 81473- 9135 Jan, [place] [address]00565100[place], [place] [address]- 2866 Jan, Screening for breast cancer Z12.39 [place] [id number] [place] [address] 62659- 4578 Jan, [place] [id number] [place] [address] 17229- 9174 Dec, Type 2 diabetes mellitus without complication, without long- term current use of insulin E11.9 ; Lumbar disc disease M51.9 ; Polyneuropathy associated with underlying disease G63 and Neurogenic bladder N31.9 [place] [id number] [place] [address] 40317- 6727 16 Dec, 2015 [place] [id number] [place] [address] 07282- 0495 14 Dec, 2015 Other chronic pain G89.29 [place] [id number] [place] [address] 58516- 1086 Dec, [place] [id number] [place] [address] 53606- 9255 Nov, [place] [id number] [place] [address] 15604- 3810 Nov, [place] [id number] [place] [address] 22495- 1615 Nov, Type 2 diabetes mellitus without complication, [...] anemia, unspecified iron deficiency anemia type D50.9 [place] [address], [place] [address]- 0495 Nov, [place] [address] [id number], [place] [address]- 6736 Nov, [facility] [place] [address] [id number], [place] [address]- 3952 Nov, [facility] [place] [address] [id number], [place] [address]- 5459 Nov, [facility] [place] [address]65[address], [place] [address]- 9852 Nov, [facility] [place] [address] [facility] [id number], [place] [address]- 4440 Nov, [facility] [place] [address]65100[place], [place] [address]- 0499 Nov, [facility] [place] [id number], [place] [address]- 4310 Jul, [facility] [place] [address], [place] [address]- 9927 Jul, [facility] [place] [address]100[place], [place] [address]- 7[address] August, [facility] [place] [address]100[place], [place] [address]- 5902 Jun, [facility] [place] [address] [id number], [place] [address]- 5617 Oct, IMMUNIZATIONS No Known Immunizations SOCIAL HISTORY Never Assessed REASON FOR VISIT Routine Visit PLAN OF CARE Activity Details Follow Up prn Reason: VITAL SIGNS MEDICATIONS Medication Instructions Dosage Frequency Start Date End Date Duration [facility] under [facility] 6h 14 Jan, 2016 Active Lyrica 225 MG Orally 2 times a day 1 capsule 12h 30 Active Hydrocodone-Acetaminophen 7.5-325 MG Orally 2 times a day 1 tablet 12h 12 Mar, 2017 Apr, 28 days Active Atenolol 25 MG TAKE 1 TABLET BY MOUTH ONCE DAILY 30 Active Duloxetine HCl 60 MG Orally Once a day 1 capsule 24h 30 days Active Furosemide 20 mg Orally Once a day 1 tablet 24h 30 days Active Mirtazapine 7.5 MG TAKE 1 TABLET BY MOUTH AT BEDTIME 7 Active Meloxicam 7.5 MG Orally Once a day as needed for pain 1 tablet Active Klor-Con Sprinkle 10 MEQ TAKE 2 CAPSULES BY MOUTH TWICE DAILY 30 Active Nystatin 645744 UNIT/GM APPLY TO GROIN TOPICALLY EVERY FOUR HOURS NEEDED REDNESS 15 Active Seroquel 25 MG Orally Once a day at HS 1 tablet Feb, Active Meclizine HCl 12.5 MG Orally Once a day 2 tablets as needed 24h August, 30 day(s) Active Diflucan 150 MG Orally today and may repeat in 3 days if symtoms persist 1 tablet Dec, Active Duloxetine HCl 60 MG Orally Once a day 1 capsule 24h 30 Active Pantoprazole Sodium 20 MG TAKE 1 TABLET BY MOUTH EVERY DAY 30 Active Glimepiride 4 MG Orally Once a day 1 tablet with breakfast or the first main meal of the day 24h 30 Active Nystatin 349682 UNIT/GM Externally Twice a day 1 application to affected area 12h Nov, Active Dicyclomine HCl 20 MG TAKE 1 TABLET BY MOUTH THREE TIMES DAILY 30 Active Victoza 18 MG/3ML INJECT 0.6MG SUBCUTANEOUSLY EVERY DAY FOR 1 WEEK THEN INJECT 1.2MG DAILY FOR 1 WEEK THEN INJECT 1.8MG DAILY 31 Active Metformin HCl 500 MG TAKE 1 TABLET BY MOUTH TWICE DAILY WITH MEALS 30 Active Pantoprazole Sodium 40 mg Orally Once a day 1 tablet 24h 30 days Active Omeprazole 20 mg Orally Once a day 2 tablets 24h Active Nystop 231024 UNIT/GM APPLY TO GROIN TOPICALLY EVERY FOUR HOURS NEEDED REDNESS 15 Active Ziprasidone HCl 40 MG TAKE 1 CAPSULE BY MOUTH TWICE DAILY WITH FOOD 30 Active Polysaccharide Iron Complex 150 MG Orally Twice a day 1 capsule 12h Active Hydrochlorothiazide 12.5 MG TAKE 1 CAPSULE BY MOUTH TWICE DAILY 30 Active Nitrofurantoin Macrocrystal 50 mg Orally Once a day 1 capsule with food or milk 24h Active Levsin 0.125 MG Orally every 4 hrs as needed for restlesness, excessive secreations 1 tablet before meals as needed Active RESULTS No Results PROCEDURES Procedure Date Ordered Result Body Site Minor complication (15 mins) Mar 16, 2017 INSTRUCTIONS MEDICATIONS ADMINISTERED No Known [...]
--- OUTSIDE RECORDS SUMMARY | 2018-01-22 14:21 | XMS REPORT ---
Author Author LAURIE MAHAJAN Organization [facility] Address [address] [place] [address] Care Team Providers Care Order Entry Name Role Phone LAURIE MAHAJAN Unavailable PROBLEMS Type Condition ICD9-CM Code PBR66-MN Code Onset Dates Condition Status SNOMED Code Problem Lumbar disc disease M51.9 Active 29488068 Problem Neurogenic bladder N31.9 Active 952724332 Problem Polyneuropathy associated with underlying disease G63 Active 666824049 Problem Anxiety F41.9 Active 35211808 Problem Generalized anxiety disorder F41.1 Active 70936688 Problem Insomnia, unspecified type G47.00 Active 666297445 Problem Type 2 diabetes mellitus without complication, without long-term current use of insulin E11.9 Active 317460792 Problem Gastroesophageal reflux disease without esophagitis K21.9 Active 533486796 Problem Other chronic pain G89.29 Active 47038565 Problem Psychosis, unspecified psychosis type F29 Active 72617611 Problem Fibromyalgia M79.7 Active 741172930 Problem Nicotine abuse Z72.0 Active 77995509 Problem Irritable bowel syndrome with diarrhea K58.0 Active 279435456 Problem Chronic pain disorder G89.4 Active 874338560 Problem Meniere disease, unspecified laterality H81.09 Active 84408536 ALLERGIES No Information ENCOUNTERS Encounter Location Date Diagnosis [facility] [address] [facility] [id number] [address] August, Lumbar disc disease M51.9 [facility] [address] [id number] [address] August, [facility] [address] [place] [id number] August, Meniere''s disease, unspecified laterality H81.09 and Type 2 diabetes mellitus without complication, without long-term current use of insulin E11.9 [place] [address], [place] [address] August, BMI 40.0-44.9, adult Z68.41 and Anxiety F41.9 [place] [id number] [place] [address] 19484- 1179 Jul, Lumbar disc disease M51.9 [place] [id number] [place] [address] 39164- 4242 Jul, Generalized anxiety disorder F41.1 [place] [id number] [place] [address] 81757- 0107 Jul, [place] [id number] [place] [address] 69171- 2367 Jul, Lumbar disc disease M51.[address] [facility] [address] [id number] Jun, Urinary tract infection without hematuria, site unspecified N39.0 ; Bilateral impacted cerumen H61.23 ; Loose stools R19.5 and Type 2 diabetes mellitus without complication, without long-term current use of insulin E11.9 [place] [id number] [place] [address]28- 8696 Jun, [place] [id number] [place] [address] 75436- 9519 Jun, Fibromyalgia M79.7 [place] [id number] [place] [address] 08537- 9717 Jun, Breast mass, right N63.10 [place] [address] [place] [address] 86096- 2476 Jun, Breast mass, right N63.10 [facility] [address] [place] [id number] Jun, Breast mass, right N63.10 ; Type 2 diabetes mellitus without complication , without long-term current use of insulin E11.9 and Fibromyalgia M79.7 [place] [address] [place] [address]372 2546 Jun, Gastroesophageal reflux disease without esophagitis K21.9 [facility] [id number] [id number] Jun, Lumbar disc disease M51.9 [facility] [address], [place] [address] May, [facility] [id number] [place] [id number] May, [facility] [id number] [place] [address] [id number] May, [facility] [id number] [place] [id number] May, Lumbar disc disease M51.9 [facility] [address] [id number] [id number] Apr, [facility] [address] [place] [id number] Apr, Viral upper respiratory tract infection J06.9 and Impacted cerumen, bilateral H61.23 [facility] [id number] [place] [address] [id number] Apr, [facility] [address], [place] [address] Apr, [facility] [id number] [place] [id number] Apr, Lumbar disc disease M51.9 [facility] [address] [place] [address] Mar, Lumbar disc disease M51.9 and Fibromyalgia M79.7 [facility] [address], [place] [address] Mar, [facility] [id number], [place] [id number] Feb, [facility] [id number] [place] [address] 697927- 1335 Jan, Type 2 diabetes mellitus without complication, without long- term current use of insulin E11.9 [facility] [address] [place] [address] Jan, Type 2 diabetes mellitus without complication, without long-term current use of insulin E11.9 ; Fibromyalgia M79.7 and Lumbar disc disease M51.9 [facility] [address] [id number] [id number] Jan, [facility] [address] [id number] [address] Jan, [facility] [address] [id number], [place] [address] Dec, [facility] [id number] [id number] Dec, [facility] [id number], [place] [id number] Dec, [facility] [address] [id number] [address] Nov, Pre-procedure lab exam Z01.812 [facility] [address] [address] Nov, Ventral hernia without obstruction or gangrene K43.9 [facility] [address] [id number][place] [id number] Nov, [facility] [id number] [address] Nov, [facility] [address] [place] [address] Nov, Ventral hernia without obstruction or gangrene K43.9 [facility] [place] [address] [place] [address] Nov, Fibromyalgia M79.7 and Polyneuropathy associated with underlying disease G63 [facility] [address] [id number], [place] [address] Oct, [facility] [id number] [address] Oct, [facility] [place] [facility] [address] [id number] [place] [address] Oct, [facility] [place] [facility] [address] [id number] [id number] Oct, [facility] [place] [facility] [address] [id number] [address] Sep, [facility] [place] [facility] [address] [id number], [place] [address] Sep, [facility] [place] [facility] [address] [id number] [place] [address] Sep, [facility] [place] [facility] [address] [id number], [place] [address] August, [facility] [address] [place] [id number] August, Right medial knee pain M25.561 [facility] [place] [facility] [address] [id number] [place] [address]6 August, [facility] [place] [facility] [address] [id number], [place] [address] August, [facility] [place] [facility] [address] [id number] [place] [address] August, [facility] [place] [facility] [address] [id number], [place] [id number] August, [facility] [place] [facility] [address] [id number], [place] [address] August, [facility] [place] [facility] [address] [id number] [place] [id number] August, [facility] [place] [facility] [address] [id number] [address] Jul, [facility] [place] [facility] [address] [id number] [place] [address] Jul, [facility] [place] [facility] [id number] [id number] Jul, [facility] [address] [facility] [id number], [place] [address] Jun, [facility] [address]00565100[place], [place] [address] Jun, [facility] [address]00565100[place], [place] [address] May, [facility] [place] [facility] [address]00565100[place], [place] [address] 1698 May, [facility] [id number] [place] [address] 26204- 7583 May, [facility] [address]00565100[place], [place] [address] May, [facility] [id number] [place] [address] 37372- 9065 Apr, [facility] [address] [place] [id number] Apr, Upper respiratory infection with cough and congestion J06.9 [facility] [id number] [place] [id number] Apr, [facility] [address], [place] [address] Apr, [facility] [address], [place] [address] 4857 Mar, [facility] [address], [place] [address] Mar, [facility] [address]100[place], [place] [address] 49[address] Mar, Other chronic pain G89.29 [facility] [address]100[place], [place] [address] 2890 Mar, [facility] [address]100[place], [place] [address]- 8434 Mar, [facility] [address] [facility] [id number], [place] [address]- 1580 Feb, [facility] [id number] [place] [address] 43490- 5601 Feb, [facility] [address] [place] [address] Feb, Insomnia, unspecified type G47.00 and Swelling of face R22.0 [facility] [address] [facility] [id number] [place] [address] 80951- 9474 Feb, [facility] [address] [facility] [id number] [place] [address] 65148- 1987 Feb, [facility] [id number] [place] [address] 34900- 8619 Feb, [facility] [id number] [place] [address] 47142- 7102 Feb, [facility] [id number] [place] [address] 71757- 2175 24 Jan, 2016 [facility] [id number] [place] [address] 03626- 9763 17 Jan, 2016 [facility] [id number] [place] [address] 17799- 8554 14 Jan, 2016 Neurogenic bladder N31.9 [facility] [id number] [place] [address] 30888- 1528 Jan, [facility] [address] [facility] [id number] [place] [address] 25502- 4676 07 Jan, 2016 [facility] [id number] [place] [address] 24559- 5458 07 Jan, 2016 [facility] [address] [facility] [id number], [place] [address]- 90[address] 04 Jan, 2016 [facility] [id number] [place] [address] 40603- 1685 Jan, Screening for breast cancer Z12.39 [place] [id number] [place] [address] 26066- 8693 Jan, [place] [id number] [place] [address] 43040- 1620 Dec, Type 2 diabetes mellitus without complication, without long- term current use of insulin E11.9 ; Lumbar disc disease M51.9 ; Polyneuropathy associated with underlying disease G63 and Neurogenic bladder N31.9 [place] [id number] [place] [address] 07162- 3404 16 Dec, 2015 [place] [id number] [place] [address] 54982- 4780 14 Dec, 2015 Other chronic pain G89.29 [place] [id number] [place] [address] 46058- 1665 Dec, [place] [id number] [place] [address] 82772- 3888 Nov, [place] [id number] [place] [address] 02641- 4393 Nov, [place] [id number] [place] [address] 84938- 4311 Nov, Type 2 diabetes mellitus without complication, [...] anemia, unspecified iron deficiency anemia type D50.9 [place] [id number] [place] [address] 89903- 6765 Nov, [place] [id number] [place] [address] 34861- 5626 Nov, [place] [address] [id number], [place] [address]- 5878 Nov, [facility] [address] [id number], [place] [address]- 4848 Nov, [facility] [address], [place] [address]- 7528 Nov, [facility] [id number], [place] [address]- 2261 Nov, [facility] [address], [place] [address]- 2469 Nov, [facility] [address], [place] [address]- 8581 Jul, [facility] [address], [place] [address]- 8883 Jul, [facility] [address], [place] [address]- 8913 August, [facility] [id number], [place] [address]- 5897 Jun, [facility] [address], [place] [address]- 9988 Oct, IMMUNIZATIONS No Known Immunizations SOCIAL HISTORY Never Assessed REASON FOR VISIT Controlled Refill Request PLAN OF CARE VITAL SIGNS MEDICATIONS Medication Instructions Dosage Frequency Start Date End Date Duration Status Hydrocodone-Acetaminophen 7.5-325 MG Orally 3 times a day 1 tablet 8h Feb, 28 days Active RESULTS No Results PROCEDURES [...]
--- OUTSIDE RECORDS SUMMARY | 2018-01-22 14:21 | XMS REPORT ---
Author Author LAURIE MAHAJAN Organization [facility] Address [address] [place] [address] Care Team Providers Care Online Activist Name Role Phone LAURIE MAHAJAN Unavailable PROBLEMS Type Condition ICD9-CM Code YGS47-PK Code Onset Dates Condition Status SNOMED Code Problem Irritable bowel syndrome with diarrhea K58.0 Active 152695184 Problem Lumbar disc disease M51.9 Active 71956786 Problem Psychosis, unspecified psychosis type F29 Active 23903087 Problem Meniere disease, unspecified laterality H81.09 Active 81489495 Problem Nicotine abuse Z72.0 Active 60408723 Problem Chronic pain disorder G89.4 Active 583749366 Problem Fibromyalgia M79.7 Active 710724247 Problem Gastroesophageal reflux disease without esophagitis K21.9 Active 241684178 Problem Other chronic pain G89.29 Active 16449879 Problem Neurogenic bladder N31.9 Active 580896500 Problem Polyneuropathy associated with underlying disease G63 Active 835471595 Problem Insomnia, unspecified type G47.00 Active 165253374 Problem Type 2 diabetes mellitus without complication, without long-term current use of insulin E11.9 Active 821786667 ALLERGIES No Information ENCOUNTERS Encounter Location Date Diagnosis [place] [id number] [place] [address] Jul, [facility]51.9 [facility] [address] [id number] Jun, Urinary tract infection without hematuria, site unspecified N39.0 ; Bilateral impacted cerumen H61.23 ; Loose stools R19.5 and Type 2 diabetes mellitus without complication, without long-term current use of insulin E11.9 [place] [id number] [address] Jun, [place] [id number] [address] 15 Jun, 2017 Fibromyalgia M79.7 [facility] [id number] [address] 12 Jun, 2017 Breast mass, right N63.10 [facility] [address] [address] 09 Jun, 2017 Breast mass, right N63.10 [facility] [address] [id number] 08 Jun, 2017 Breast mass, right N63.10 ; Type 2 diabetes mellitus without complication , without long-term current use of insulin E11.9 and Fibromyalgia M79.7 [facility] [id number] [place] [address] Jun, Gastroesophageal reflux disease without esophagitis K21.9 [facility] [id number] [place] [id number] Jun, Lumbar disc disease M51.9 [facility] [id number] [address] May, [facility] [id number] [place] [id number] May, [facility] [id number] [place] [address] [id number] May, [facility] [id number] [place] [address] [id number] May, Lumbar disc disease M51.9 [facility] [id number] [place] [id number] Apr, [facility] [id number] Apr, Viral upper respiratory tract infection J06.9 and Impacted cerumen, bilateral H61.23 [facility] [id number] [id number] Apr, [facility] [address] [address] Apr, [facility] [address] [place] [id number] [id number] Apr, Lumbar disc disease M51.9 [facility] [address] [id number] Mar, Lumbar disc disease M51.9 and Fibromyalgia M79.7 [facility] [address] [facility] [id number] [address] Mar, [facility] [address] [id number] [id number] Feb, [facility] [id number] [address] Jan, Type 2 diabetes mellitus without complication, without long- term current use of insulin E11.9 [facility] [address] [id number] Jan, Type 2 diabetes mellitus without complication, without long-term current use of insulin E11.9 ; Fibromyalgia M79.7 and Lumbar disc disease M51.9 [facility] [address] [id number] [id number] Jan, [facility] [id number][place] [id number] Jan, [facility] [address] [facility] [id number][place] [address] Dec, [facility] [id number][place] [id number] Dec, [facility] [address] [id number] [address] Dec, [facility] [id number][place] [address] Nov, Pre-procedure lab exam Z01.812 [facility] [address] [facility] [id number][place] [address] Nov, Ventral hernia without obstruction or gangrene K43.9 [facility] [address] [id number] [id number] Nov, [facility] [address] [id number] [id number] Nov, [facility] [address] [address] Nov, Ventral hernia without obstruction or gangrene K43.9 [facility] [address] [facility] [id number] Nov, Fibromyalgia M79.7 and Polyneuropathy associated with underlying disease G63 [facility] [address] [facility] [id number] [address] Oct, [facility] [address] [id number] [id number] Oct, [facility] [address] [id number] [id number] Oct, [facility] [address] [id number] [place] [id number] Oct, [facility] [address] [place] [id number][place] [id number] Sep, [facility] [id number], [place] [address] Sep, [facility] [address] [place] [id number] [address] Sep, [facility] [id number] [address] August, [facility] [address] [id number] August, Right medial knee pain M25.561 [facility] [address] [place] [id number] [address] August, [facility] [address] [id number] [address] August, [facility] [address] [place] [place] [id number] [address] August, [facility] [id number] [id number] August, [facility] [address], [place] [address] August, [facility] [id number] [id number] August, [facility] [address] [id number] [id number] Jul, [facility] [address] [id number] [address] Jul, [facility] [address] [id number] [id number] Jul, [facility] [address], [place] [address] Jun, [facility] [id number], [place] [address]- [address] Jun, [facility] [address] [place] [id number] [address] May, [facility] [id number], [place] [address]- [address] May, [facility] [address] [place] [id number] [address] May, [facility] [address] [id number] [address] May, [facility] [address] [place] [id number] [address] Apr, [facility] [address] [id number] Apr, Upper respiratory infection with cough and congestion J06.9 [facility] [id number] [address] Apr, [facility] [address], [place] [address] Apr, [facility] [id number], [place] [address] Mar, [facility] [id number] [address]- 7067 Mar, [facility] [id number] [place] [address]- 2938 Mar, Other chronic pain G89.29 [facility] [id number] [address]- [address] Mar, [facility] [address] [place] [id number] [place] [address]- 3004 Mar, [facility] [id number], [place] [address]- [address] Feb, [facility] [id number] [place] [address] 79768- 8689 Feb, [facility] [address] [address] Feb, Insomnia, unspecified type G47.00 and Swelling of face R22.0 [facility] [address] [address]- [address] 16 Feb, 2016 [facility] [id number], [place] [address]- 7673 14 Feb, 2016 [facility] [id number] [address]- 134[address] Feb, [facility] [id number], [place] [address]- 44[address] Feb, [facility] [id number], [place] [address]- 6[address] 24 Jan, 2016 [facility] [id number] [address]- 8127 17 Jan, 2016 [facility] [id number], [place] [address]- 65[address] 14 Jan, 2016 Neurogenic bladder N31.9 [facility] [address] [place] [id number] [place] [address] 86691- 2832 10 Jan, 2016 [facility] [id number] [address]- 6334 Jan, [facility] [address] [place] [id number] [place] [address] 38682- 8437 Jan, [facility] [address] [place] [id number] [place] [address] 02594- 4107 Jan, [facility] [address] [place] [id number] [place] [address] 00897- 0177 Jan, Screening for breast cancer Z12.39 [facility] [address] [place] [id number] [place] [address] 56524- 9470 Jan, [facility] [id number] [place] [address] 79698- 0957 27 Dec, 2015 Type 2 diabetes mellitus without complication, without long- term current use of insulin E11.9 ; Lumbar disc disease M51.9 ; Polyneuropathy associated with underlying disease G63 and Neurogenic bladder N31.9 [facility] [address], [place] [address]- 1226 16 Dec, 2015 [facility] [id number] [place] [address] 92381- 8684 14 Dec, 2016 Other chronic pain G89.29 [facility] [id number] [address]- 02[address] Dec, [facility] [address] [place] [id number] [place] [address] 26548- 4790 Nov, [facility] [address], [place] [address]- 58[address] Nov, [facility] [id number] [place] [address] 19470- 4321 Nov, Type 2 diabetes mellitus without complication, [...] anemia, unspecified iron deficiency anemia type D50.9 [facility] [address] [place] [id number] [place] [address] 66783- 9661 Nov, [facility] [address] [place] [id number] [place] [address] 41632- 8152 Nov, [facility] [address] [place] [id number] [place] [address] 40402- 6893 Nov, [facility] [address] [place] [id number] [place] [address] 67240- 8527 Nov, [facility] [address] [place] [id number] [place] [address] 38155- 7734 Nov, [facility] [address] [place] [id number] [place] [address] 05446- 8583 Nov, [facility] [address] [place] [id number] [place] [address] 72069- 6157 Nov, [facility] [address] [place] [id number] [place] [address] 67433- 5692 Jul, [facility] [address] [place] [id number] [place] [address] 32033- 0542 Jul, [facility] [address] [place] [id number] [place] [address] 56003- 8205 August, [facility] [address] [place] [id number] [place] [address] 66469- 5696 Jun, [facility] [address] [place] [id number] [place] [address] 62362- 9453 Oct, IMMUNIZATIONS No Known Immunizations SOCIAL HISTORY Never Assessed REASON FOR VISIT Controlled Med Refill PLAN OF CARE VITAL SIGNS MEDICATIONS Medication Instructions Dosage Frequency Start Date End Date Duration Status Hydrocodone-Acetaminophen 7.5-325 MG Orally 3 times a day 1 tablet 8h Oct, 28 days Active RESULTS No Results [...]
--- OUTSIDE RECORDS SUMMARY | 2018-01-22 14:21 | XMS REPORT ---
Author Author LAURIE MAHAJAN Organization [facility] [place] Address [address] [place] [address] Care Team Providers Care Regional Clinical Director Name Role Phone LAURIE MAHAJAN Unavailable PROBLEMS Type Condition ICD9-CM Code DNB03-NW Code Onset Dates Condition Status SNOMED Code Problem Lumbar disc disease M51.9 Active 81189605 Problem Neurogenic bladder N31.9 Active 549183358 Problem Polyneuropathy associated with underlying disease G63 Active 664593833 Problem Anxiety F41.9 Active 25058816 Problem Generalized anxiety disorder F41.1 Active 74957743 Problem Insomnia, unspecified type G47.00 Active 128180100 Problem Type 2 diabetes mellitus without complication, without long-term current use of insulin E11.9 Active 956287207 Problem Gastroesophageal reflux disease without esophagitis K21.9 Active 307894021 Problem Other chronic pain G89.29 Active 43773760 Problem Psychosis, unspecified psychosis type F29 Active 36478428 Problem Fibromyalgia M79.7 Active 879831233 Problem Nicotine abuse Z72.0 Active 90742185 Problem Irritable bowel syndrome with diarrhea K58.0 Active 307931219 Problem Chronic pain disorder G89.4 Active 393953521 Problem Meniere disease, unspecified laterality H81.09 Active 20233932 ALLERGIES No Information ENCOUNTERS Encounter Location Date Diagnosis [facility] [place] [address] [facility] [id number], [place] [address] August, [facility] [address] [place] [id number] August, Meniere''s disease, unspecified laterality H81.09 and Type 2 diabetes mellitus without complication, without long-term current use of insulin E11.9 [facility] [place] [address] [facility] [id number], [place] [address] August, BMI 40.0-44.9, adult Z68.41 and Anxiety F41.9 [place] [id number] [place] [address]26- 8952 Jul, Lumbar disc disease M51.9 [place] [id number] [place] [address] 71037- 9383 Jul, Generalized anxiety disorder F41.1 [place] [id number] [place] [address] 86907- 6878 Jul, [place] [id number] [place] [address] 45051- 9435 Jul, [facility] M51.9 [facility] [address] [place] [id number] Jun, Urinary tract infection without hematuria, site unspecified N39.0 ; Bilateral impacted cerumen H61.23 ; Loose stools R19.5 and Type 2 diabetes mellitus without complication, without long-term current use of insulin E11.9 [place] [id number] [place] [address] 84584- 8097 Jun, [place] [id number] [place] [address] 66552- 9958 Jun, Fibromyalgia M79.7 [place] [id number] [place] [address] 20609- 9411 Jun, Breast mass, right N63.10 [place] [id number] [place] [address] 51975- 3120 Jun, Breast mass, right N63.10 [facility] [address] [place] [id number] Jun, Breast mass, right N63.10 ; Type 2 diabetes mellitus without complication , without long-term current use of insulin E11.9 and Fibromyalgia M79.7 [place] [address] [place] [address] 70006- 8774 07 Jun, 2017 Gastroesophageal reflux disease without esophagitis K21.9 [facility] [address] [id number] [address] Jun, Lumbar disc disease M51.9 [facility] [place] [address] [id number] [address]46 May, [facility] [facility] [address] [id number] [address] May, [facility] [facility] [address] [id number] [id number] May, [facility] [facility] [id number] [place] [id number] May, Lumbar disc disease M51.9 [facility] [id number] [place] [id number] Apr, [facility] [address] [place] [address] Apr, Viral upper respiratory tract infection J06.9 and Impacted cerumen, bilateral H61.23 [facility] [id number] [address] Apr, [facility] [place] [address], [place] [address] Apr, [facility] [id number] [place] [id number] Apr, Lumbar disc disease M51.9 [facility] [address] [place] [id number] Mar, Lumbar disc disease M51.9 and Fibromyalgia M79.7 [facility] [place] [address] [id number], [place] [address] Mar, [facility] [id number] [id number] Feb, [facility] [place] [id number] [place] [address] 005538- 8238 Jan, Type 2 diabetes mellitus without complication, without long- term current use of insulin E11.9 [facility] [address] [id number] Jan, Type 2 diabetes mellitus without complication, without long-term current use of insulin E11.9 ; Fibromyalgia M79.7 and Lumbar disc disease M51.9 [facility] [id number] [address] Jan, [facility] [id number] [address] Jan, [facility] [address], [place] [address] Dec, [facility] [id number] [place] [id number] Dec, [facility] [address] [id number] [address] Dec, [facility] [address] [id number] [address] Nov, Pre-procedure lab exam Z01.812 [facility] [place] [address], [place] [address] Nov, Ventral hernia without obstruction or gangrene K43.9 [facility] [id number], [place] [address] Nov, [facility] [id number], [place] [address] Nov, [facility] [address] [id number] Nov, Ventral hernia without obstruction or gangrene K43.9 [facility] [address] [place] [id number] Nov, Fibromyalgia M79.7 and Polyneuropathy associated with underlying disease G63 [facility] [address] [id number], [place] [address] Oct, [facility] [id number], [place] [id number] Oct, [facility] [id number], [place] [id number] Oct, [facility] [place] [facility] [address] [place] [id number] [address] Oct, [facility] [place] [facility] [address] [id number][place] [address] Sep, [facility] [place] [facility] [address] [id number] [place] [address] Sep, [facility] [place] [facility] [address] [id number] [place] [address] Sep, [facility] [place] [facility] [address] [id number] [place] [address] August, [facility] [address] [id number] August, Right medial knee pain M25.561 [facility] [place] [facility] [address] [id number] [place] [address]- [address] August, [facility] [place] [facility] [address] [id number], [place] [address] August, [facility] [place] [facility] [address] [id number] [place] [address]- [address]46 August, [facility] [place] [facility] [address] [id number][place] [id number] August, [facility] [place] [facility] [address] [id number] [place] [address]- [address] August, [facility] [place] [facility] [address] [id number], [place] [id number] August, [facility] [place] [facility] [address] [id number][place] [id number] Jul, [facility] [place] [facility] [address] [id number] [place] [address]- [address] Jul, [facility] [place] [facility] [address] [id number], [place] [id number] Jul, [facility] [place] [facility] [address] [id number], [place] [address] 14 Jun, 2016 [facility] [address] [id number] [place] [address] Jun, [facility] [address] [id number], [place] [address] 28 May, 2016 [facility] [id number], [place] [address] May, [facility] [address] [id number], [place] [address] May, [facility] [address] [id number] [place] [address]- [address]16 May, [facility] [id number], [place] [address] Apr, [facility] [address] [id number] Apr, Upper respiratory infection with cough and congestion J06.9 [facility] [id number], [place] [id number] Apr, [facility] [id number], [place] [address] Apr, [facility] [id number], [place] [address]- [address] Mar, [facility] [id number], [place] [address]- 5316 Mar, [facility] [id number], [place] [address] Mar, Other chronic pain G89.29 [facility] [id number] [place] [address]- 0479 Mar, [facility] [id number], [place] [address] 3[address] Mar, [facility] [id number] [address] Feb, [facility] [place] [id number], [place] [address] Feb, [facility] [address] [place] [id number] Feb, Insomnia, unspecified type G47.00 and Swelling of face R22.0 [facility] [place] [id number], [place] [address]- [address]58 Feb, [facility] [place] [id number] [place] [address] 92518- 4336 Feb, [facility] [place] [id number] [place] [address] 84326- 8635 Feb, [facility] [place] [id number] [place] [address] 77222- 2667 Feb, [facility] [place] [id number] [place] [address] 76670- 7696 Jan, [facility] [place] [address] [id number], [place] [address]- 5485 Jan, [facility] [place] [id number] [place] [address] 52681- 1573 14 Jan, 2016 Neurogenic bladder N31.9 [facility] [place] [id number] [place] [address] 03701- 3961 Jan, [facility] [place] [id number] [place] [address] 36935- 7430 Jan, [facility] [place] [id number], [place] [address]- 8759 Jan, [facility] [place] [id number] [place] [address] 84919- 9289 04 Jan, 2016 [facility] [place] [id number], [place] [address]- 8013 Jan, Screening for breast cancer Z12.39 [facility] [place] [id number] [place] [address] 24034- 0623 Jan, [place] [id number] [place] [address] 31424- 9743 Dec, Type 2 diabetes mellitus without complication, without long- term current use of insulin E11.9 ; Lumbar disc disease M51.9 ; Polyneuropathy associated with underlying disease G63 and Neurogenic bladder N31.9 [facility] [place] [id number] [place] [address] 40839- 1474 16 Dec, 2015 [place] [id number] [place] [address] 82382- 9999 14 Dec, 2015 Other chronic pain G89.29 [place] [id number] [place] [address] 75816- 2231 Dec, [place] [id number] [place] [address] 45741- 6485 Nov, [place] [id number] [place] [address] 59935- 2462 Nov, [place] [id number] [place] [address] 38340- 0124 Nov, Type 2 diabetes mellitus without complication, [...] anemia, unspecified iron deficiency anemia type D50.9 [place] [id number] [place] [address] 54724- 7121 Nov, [place] [id number] [place] [address] 90113- 0496 Nov, [place] [id number] [place] [address] 44227- 2018 Nov, [place] [id number] [place] [address] 98225- 7881 Nov, [facility] [place] [id number], [place] [address]- 8290 Nov, [facility] [place] [id number], [place] [address]- 4531 Nov, [facility] [place] [id number], [place] [address]- 8079 Nov, [facility] [place] [id number], [place] [address]- 6503 Jul, [facility] [place] [id number], [place] [address]- 1646 Jul, [facility] [place] [id number], [place] [address]- 8112 August, [facility] [place] [id number], [place] [address]- 0740 Jun, [facility] [place] [id number], [place] [address]- 5[address] Oct, IMMUNIZATIONS No Known Immunizations SOCIAL HISTORY Never Assessed REASON FOR VISIT Elevated blood sugars PLAN OF CARE Activity Details Follow Up prn Reason: VITAL SIGNS MEDICATIONS Medication Instructions Dosage Frequency Start Date End Date Duration Status Nitrofurantoin Macrocrystal 50 mg Orally Once a day 1 capsule with food or milk 24h Active Diflucan 150 MG Orally today and may repeat in 3 days if symtoms persist 1 tablet Dec, Active Pantoprazole Sodium 40 mg Orally Once a day 1 tablet 24h 30 days Active Duloxetine HCl 60 MG Orally Once a day 1 capsule 24h 30 Active Hydrocodone-Acetaminophen 7.5-325 MG Orally 3 times a day 1 tablet 8h Jan, 28 days Active Lyrica 225 MG Orally 2 times a day 1 capsule 12h 30 Active Nystatin 121956 UNIT/GM APPLY TO GROIN TOPICALLY EVERY FOUR HOURS NEEDED REDNESS 15 Active Omeprazole 20 mg Orally Once a day 2 tablets 24h Active Klor-Con Sprinkle 10 MEQ TAKE 2 CAPSULES BY MOUTH TWICE DAILY 30 Active Dicyclomine HCl 20 MG TAKE 1 TABLET BY MOUTH THREE TIMES DAILY 30 Active Attends Underpads L Ex-Absorb - use under patient 6h 14 Jan, 2016 Active Meclizine HCl 12.5 MG Orally Once a day 2 tablets as needed 24h August, 30 day(s) Active Pantoprazole Sodium 20 MG TAKE 1 TABLET BY MOUTH EVERY DAY 30 Active Ziprasidone HCl 40 MG TAKE 1 CAPSULE BY MOUTH TWICE DAILY WITH FOOD 30 Active Atenolol 25 MG TAKE 1 TABLET BY MOUTH ONCE DAILY 30 Active Furosemide 20 mg Orally Once a day 1 tablet 24h 30 days Active Nystatin 679329 UNIT/GM Externally Twice a day 1 application to affected area 12h 18 Nov, 2015 Active Hydrochlorothiazide 12.5 MG TAKE 1 CAPSULE BY MOUTH TWICE DAILY 30 Active Metformin HCl 500 MG TAKE 1 TABLET BY MOUTH TWICE DAILY WITH MEALS 30 Active Mirtazapine 7.5 MG TAKE 1 TABLET BY MOUTH AT BEDTIME 7 Active Dulaglutide 0.75 MG/0.5ML 0.5 ml Jan, Active Meloxicam 7.5 MG Orally Once a day as needed for pain 1 tablet Active Duloxetine HCl 60 MG Orally Once a day 1 capsule 24h 30 days Active Glimepiride 4 MG Orally Once a day 1 tablet with breakfast or the first main meal of the day 24h 30 Active Polysaccharide Iron Complex 150 MG Orally Twice a day 1 capsule 12h Active Nystop 907982 UNIT/GM APPLY TO GROIN TOPICALLY EVERY FOUR HOURS NEEDED REDNESS 15 Active Seroquel 25 MG Orally Once a day at HS 1 tablet Feb, Active Levsin 0.125 MG Orally every 4 hrs as needed for restlesness, excessive secreations 1 tablet before meals as needed Active RESULTS No Results PROCEDURES Procedure Date Ordered Result Body Site Minor complication (15 mins) Jan 21, 2017 INSTRUCTIONS MEDICATIONS ADMINISTERED No Known Medications [...]
--- OUTSIDE RECORDS SUMMARY | 2018-01-22 14:22 | XMS REPORT ---
Author Author LAURIE MAHAJAN Organization [facility] Address [address] [place] [address] Care Team Providers Care Mounter Hand Name Role Phone LAURIE MAHAJAN Unavailable PROBLEMS Type Condition ICD9-CM Code TPK93-UN Code Onset Dates Condition Status SNOMED Code Problem Lumbar disc disease M51.9 Active 61695083 Problem Neurogenic bladder N31.9 Active 382599157 Problem Polyneuropathy associated with underlying disease G63 Active 662462225 Problem Anxiety F41.9 Active 90326679 Problem Generalized anxiety disorder F41.1 Active 85912277 Problem Insomnia, unspecified type G47.00 Active 686370093 Problem Type 2 diabetes mellitus without complication, without long-term current use of insulin E11.9 Active 961888735 Problem Gastroesophageal reflux disease without esophagitis K21.9 Active 662399721 Problem Other chronic pain G89.29 Active 63999674 Problem Psychosis, unspecified psychosis type F29 Active 13684940 Problem Fibromyalgia M79.7 Active 897737605 Problem Nicotine abuse Z72.0 Active 14479547 Problem Irritable bowel syndrome with diarrhea K58.0 Active 827112237 Problem Chronic pain disorder G89.4 Active 028463117 Problem Meniere disease, unspecified laterality H81.09 Active 71237212 ALLERGIES No Information ENCOUNTERS Encounter Location Date Diagnosis [facility] [id number] [address] Sep, Lumbar disc disease M51.9 [facility] [address] [place] [address] 13695- 5862 Sep, [facility] [address] [place] [address] 84907- 6914 August, Lumbar disc disease M51.9 [facility] [address] [address] August, [facility] [address] [place] [place] [id number] August, Meniere''s disease, unspecified laterality H81.09 and Type 2 diabetes mellitus without complication, without long-term current use of insulin E11.9 [facility] [facility] [address] [address] August, BMI 40.0-44.9, adult Z68.41 and Anxiety F41.9 [place] [address] [place] [address] 16601- 5352 Jul, Lumbar disc disease M51.9 [facility] [facility] [id number] [place] [address] 48804- 2054 Jul, Generalized anxiety disorder F41.1 [facility] [id number] [place] [address] 37606- 8151 Jul, [place] [facility] [id number] [place] [address] 10601- 0332 Jul, Lumbar disc disease M51.[address] [id number] Jun, Urinary tract infection without hematuria, site unspecified N39.0 ; Bilateral impacted cerumen H61.23 ; Loose stools R19.5 and Type 2 diabetes mellitus without complication, without long-term current use of insulin E11.9 [facility] [facility] [address] [address] Jun, [facility] [facility] [address] [place] [address] 34114- 6903 Jun, Fibromyalgia M79.7 [place] [facility] [id number] [place] [address] 47759- 0309 Jun, Breast mass, right N63.10 [facility] [address] [place] [address] 92705- 7095 Jun, Breast mass, right N63.10 [facility] [address] [place] [id number] Jun, Breast mass, right N63.10 ; Type 2 diabetes mellitus without complication , without long-term current use of insulin E11.9 and Fibromyalgia M79.7 [facility] [address] [address] Jun, Gastroesophageal reflux disease without esophagitis K21.9 [facility] [id number] [place] [address] [id number] Jun, Lumbar disc disease M51.9 [facility] [address] [place] [address] 03022- 9879 May, [facility] [id number] [place] [address] [id number] May, [facility] [id number] [place] [address] [id number] May, [facility] [id number] [place] [address] [id number] May, Lumbar disc disease M51.9 [facility] [id number] [place] [address] [id number] Apr, [facility] [address] [id number] Apr, Viral upper respiratory tract infection J06.9 and Impacted cerumen, bilateral H61.23 [facility] [id number] [place] [address] [id number] Apr, [facility] [id number] [address] Apr, [facility] [id number] [place] [address] [id number] Apr, Lumbar disc disease M51.[address] [id number] Mar, Lumbar disc disease M51.9 and Fibromyalgia M79.7 [facility] [address] [place] [address] 69370 2546 Mar, [facility] [address] [id number] [id number] Feb, [facility] [id number] [address] Jan, Type 2 diabetes mellitus without complication, without long- term current use of insulin E11.9 [facility] [address] [place] [id number] Jan, Type 2 diabetes mellitus without complication, without long-term current use of insulin E11.9 ; Fibromyalgia M79.7 and Lumbar disc disease M51.9 [facility] [address] [id number] [id number] Jan, [facility] [id number] [id number] Jan, [facility] [id number], [place] [address] 2546 Dec, [facility] [address] [id number] [id number] Dec, [facility] [address] [id number] [id number] Dec, [facility] [address] [id number] [id number] Nov, Pre-procedure lab exam Z01.812 [facility] [id number] [address] Nov, Ventral hernia without obstruction or gangrene K43.9 [facility] [address] [id number] [id number] Nov, [facility] [address] [id number] [id number] Nov, [facility] [address] [place] [id number] Nov, Ventral hernia without obstruction or gangrene K43.9 [facility] [address] [place] [id number] Nov, Fibromyalgia M79.7 and Polyneuropathy associated with underlying disease G63 [facility] [id number], [place] [address] Oct, [facility] [address] [id number] [address] Oct, [facility] [id number] [id number] Oct, [facility] [place] [facility] [address] [id number] [id number] Oct, [facility] [address] [id number] [id number] Sep, [facility] [address], [place] [address] Sep, [facility] [address], [place] [address] Sep, [facility] [address], [place] [address] August, [facility] [address] [place] [id number] August, Right medial knee pain M25.561 [facility] [id number], [place] [address] August, [facility] [address], [place] [address] August, [facility] [id number], [place] [address] 2546 August, [facility] [address] [id number] [id number] August, [facility] [id number], [place] [address] August, [facility] [address] [id number] [id number] August, [facility] [address] [id number] [id number] Jul, [facility] [address] [facility] [id number] [place] [address] Jul, [facility] [address] [id number], [place] [id number] Jul, [facility] [address] [facility] [id number] [place] [address] Jun, [facility] [address] [id number] [place] [address]- 6086 Jun, [facility] [id number] [place] [address] May, [facility] [id number] [place] [address]- 6298 May, [facility] [address] [place] [address]- [address] May, [facility] [id number], [place] [address] 9[address] May, [facility] [address], [place] [address] Apr, [facility] [address] [place] [id number] Apr, Upper respiratory infection with cough and congestion J06.9 [facility] [id number], [place] [id number] Apr, [facility] [id number], [place] [address]- [address] Apr, [facility] [id number], [place] [address]- 7566 Mar, [facility] [id number], [place] [address]- 5089 Mar, [facility] [id number], [place] [address]- 6003 Mar, Other chronic pain G89.29 [facility] [id number] [place] [address] 85398- 0571 Mar, [facility] [id number] [place] [address] 01773- 1115 Mar, [facility] [id number] [place] [address] 86915- 4477 Feb, [facility] [id number] [place] [address] 67429- 1011 Feb, [facility] [address] [place] [id number] Feb, Insomnia, unspecified type G47.00 and Swelling of face R22.0 [facility] [id number] [place] [address] 95218- 5061 Feb, [facility] [id number] [place] [address] 45472- 0379 Feb, [facility] [id number] [place] [address] 74819- 3598 Feb, [facility] [id number] [place] [address] 76460- 0309 Feb, [facility] [id number] [place] [address] 21281- 3812 24 Jan, 2016 [facility] [id number] [place] [address] 87477- 2198 17 Jan, 2016 [facility] [id number] [place] [address] 49023- 1283 14 Jan, 2016 Neurogenic bladder N31.9 [facility] [id number] [place] [address] 78271- 4362 10 Jan, 2016 [facility] [id number] [place] [address] 36541- 9380 07 Jan, 2016 [facility] [id number] [place] [address] 71916- 2214 Jan, [address] [address], [place] [address]- 7[address] Jan, [place] [id number] [place] [address] Jan, Screening for breast cancer Z12.39 [facility] [id number] [place] [address] 84150- 6533 Jan, [facility] [facility] [id number] [place] [address] 24794- 5129 Dec, Type 2 diabetes mellitus without complication, without long- term current use of insulin E11.9 ; Lumbar disc disease M51.9 ; Polyneuropathy associated with underlying disease G63 and Neurogenic bladder N31.9 [place] [address] [place] [address] 91890- 4456 16 Dec, 2015 [place] [facility] [id number] [place] [address] 60056- 1382 14 Dec, 2015 Other chronic pain G89.29 [facility] [facility] [id number] [place] [address] 91859- 1331 Dec, [facility] [id number] [place] [address] 54138- 4401 Nov, [facility] [address], [place] [address]- 3981 Nov, [facility] [facility] [id number] [place] [address] 91877- 1678 Nov, Type 2 diabetes mellitus without complication, [...] iron deficiency anemia type D50.9 [address] [address], [place] [address]- 1166 Nov, [facility] [address], [place] [address]- 4344 Nov, [facility] [address], [place] [address]- 9108 Nov, [facility] [address] [place] [address] 30445- 6412 Nov, [facility] [address], [place] [address]- 1774 Nov, [facility] [address] [place] [address] 84449- 6814 Nov, [facility] [address] [place] [address] 60260- 9077 Nov, [facility] [address] [place] [address] 35761- 1430 Jul, [facility] [address] [place] [address] 42467- 3265 Jul, [facility] [address] [place] [address] 31979- 5656 August, [facility] [address], [place] [address]- 7726 Jun, [facility] [address], [place] [address]- 4123 Oct, IMMUNIZATIONS No Known Immunizations SOCIAL HISTORY [...]
--- OUTSIDE RECORDS SUMMARY | 2018-01-22 14:22 | XMS REPORT ---
Author Author LAURIE MAHAJAN Organization [facility] Address [address] [place] [address] Care Team Providers Care Coding Machine Operator Name Role Phone LAURIE MAHAJAN Unavailable PROBLEMS Type Condition ICD9-CM Code WTI28-GU Code Onset Dates Condition Status SNOMED Code Problem Psychosis, unspecified psychosis type F29 Active 34772042 Problem Polyneuropathy associated with underlying disease G63 Active 781545805 Problem Lumbar disc disease M51.9 Active 55834533 Problem Generalized anxiety disorder F41.1 Active 02386746 Problem Gastroesophageal reflux disease without esophagitis K21.9 Active 431638187 Problem Type 2 diabetes mellitus without complication, without long-term current use of insulin E11.9 Active 742865916 Problem Neurogenic bladder N31.9 Active 308451747 Problem Other chronic pain G89.29 Active 79792921 Problem Insomnia, unspecified type G47.00 Active 308791377 Problem Nicotine abuse Z72.0 Active 82751150 Problem Chronic pain disorder G89.4 Active 752841754 Problem Fibromyalgia M79.7 Active 546823740 Problem Meniere disease, unspecified laterality H81.09 Active 35033936 Problem Irritable bowel syndrome with diarrhea K58.0 Active 576063384 ALLERGIES No Information ENCOUNTERS Encounter Location Date Diagnosis [facility] [address] [id number] [address] Jul, Generalized anxiety disorder F41.1 [facility] [address] [facility] [id number] [place] [address] Jul, [place] [address] [id number] [place] [address] Jul, [facility] M51.9 [facility] [address] [place] [id number] Jun, Urinary tract infection without hematuria, site unspecified N39.0 ; Bilateral impacted cerumen H61.23 ; Loose stools R19.5 and Type 2 diabetes mellitus without complication, without long-term current use of insulin E11.9 [facility] [address] [address] Jun, [facility] [address] [address] Jun, Fibromyalgia M79.7 [facility] [address] [place] [address] 12 Jun, 2017 Breast mass, right N63.10 [place] [address] [place] [id number] [place] [address] 09 Jun, 2017 Breast mass, right N63.[address] [id number] Jun, Breast mass, right N63.10 ; Type 2 diabetes mellitus without complication , without long-term current use of insulin E11.9 and Fibromyalgia M79.7 [place] [address] [address] Jun, Gastroesophageal reflux disease without esophagitis K21.9 [place] [id number] [place] [id number] Jun, Lumbar disc disease M51.9 [facility] [address] [place] [address] [id number] [address] May, [facility] [id number] [place] [id number] May, [facility] [id number] [place] [id number] May, [place] [address] [place] [id number] [place] [id number] May, Lumbar disc disease M51.9 [facility] [id number] [place] [id number] Apr, [facility] [address] [id number] Apr, Viral upper respiratory tract infection J06.9 and Impacted cerumen, bilateral H61.23 [facility] [id number] [place] [id number] Apr, [facility] [address] [id number] [address] Apr, [facility] [id number] [place] [address] Apr, Lumbar disc disease M51.[address] [facility] [address] [id number] Mar, Lumbar disc disease M51.9 and Fibromyalgia M79.7 [facility] [address] [id number] [address] Mar, [facility] [id number] [place] [id number] Feb, [facility] [address] [address] [id number] [address] Jan, Type 2 diabetes mellitus without complication, without long- term current use of insulin E11.[address] [facility] [address] [id number] Jan, Type 2 diabetes mellitus without complication, without long-term current use of insulin E11.9 ; Fibromyalgia M79.7 and Lumbar disc disease M51.9 [facility] [id number] [place] [id number] Jan, [facility] [address] [place] [id number] [place] [id number] Jan, [facility] [address] [id number] [address] Dec, [facility] [id number] [place] [id number] Dec, [facility] [address] [place] [address] [id number] [place] [id number] Dec, [facility] [address] [id number] [place] [id number] Nov, Pre-procedure lab exam Z01.812 [facility] [address] [id number] [place] [address] Nov, Ventral hernia without obstruction or gangrene K43.9 [facility] [address] [id number] [place] [id number] Nov, [facility] [address] [id number] [place] [address] Nov, [facility] [address] [place] [id number] Nov, Ventral hernia without obstruction or gangrene K43.9 [facility] [address] [place] [id number] Nov, Fibromyalgia M79.7 and Polyneuropathy associated with underlying disease G63 [facility] [address] [id number] [place] [address] Oct, [facility] [address] [id number] [place] [id number] Oct, [facility] [address] [id number] [place] [id number] Oct, [facility] [address] [id number] [place] [id number] Oct, [facility] [address] [id number] [place] [id number] Sep, [facility] [address] [id number] [place] [address] Sep, [facility] [address] [id number] [place] [address] Sep, [facility] [address] [id number] [place] [address] August, [facility] [address] [place] [id number] August, Right medial knee pain M25.561 [facility] [place] [facility] [address] [id number] [place] [address] August, [facility] [place] [facility] [address] [id number] [place] [address] August, [facility] [place] [facility] [address] [facility] [id number] [place] [address] August, [facility] [place] [facility] [address] [id number] [place] [address] August, [facility] [place] [facility] [address] [id number] [place] [address] August, [facility] [place] [facility] [address] [id number] [place] [address] August, [facility] [place] [facility] [address] [place] [id number] [place] [id number] Jul, [facility] [place] [facility] [address] [id number] [place] [address] Jul, [facility] [place] [facility] [address] [id number] [place] [id number] Jul, [facility] [place] [facility] [address] [id number] [place] [address] Jun, [facility] [place] [facility] [address] [id number] [place] [address] Jun, [facility] [place] [facility] [address] [id number] [place] [address] May, [facility] [place] [facility] [address] [id number] [place] [address]- [address] May, [facility] [place] [facility] [address] [id number] [place] [address]- [address] May, [facility] [place] [facility] [address] [facility] [id number] [place] [address]- [address] May, [facility] [place] [facility] [address] [facility] [id number] [place] [address]- [address] Apr, [facility] [address] [place] [id number] Apr, Upper respiratory infection with cough and congestion J06.9 [facility] [address] [place] [id number] [place] [id number] 10 Apr, 2016 [facility] [address] [place] [address] [id number] [place] [address]- 1663 Apr, [facility] [address] [place] [id number] [place] [address]- 8164 Mar, [facility] [address] [id number] [place] [address]- 9490 Mar, [facility] [address] [place] [id number] [place] [address]06- 1595 Mar, Other chronic pain G89.29 [facility] [address] [place] [id number] [place] [address] 83387- 4[address] Mar, [facility] [address] [place] [id number] [place] [address]36- 6254 Mar, [facility] [address] [place] [id number] [place] [address] 7[address]79- 8[address] Feb, [facility] [address] [place] [address]36- [address] Feb, [facility] [address] [place] [address] Feb, Insomnia, unspecified type G47.00 and Swelling of face R22.0 [facility] [address]65[address] [address]- [address] Feb, [facility] [address] [place] [id number] [place] [address] 59637- 6606 14 Feb, 2016 [facility] [address] [place] [address] 69457- 9814 07 Feb, 2016 [facility] [address] [place] [address] 60718- 6552 Feb, [facility] [address] [address]- [address] Jan, [facility] [address]65[address] [address]- [address] Jan, [facility] [address] [address]- [address]31 Jan, Neurogenic bladder N31.9 [facility] [address]65[address] [address]- 1531 Jan, [facility] [address] [place] [address]31- 8157 Jan, [facility] [address] [address]- 6[address] Jan, [facility] [address] [place] [address]64- 3514 Jan, [facility] [address] [address]- [address] Jan, Screening for breast cancer Z12.39 [facility] [address] [address]- [address] Jan, [facility] [address] [address]- [address] 27 Dec, 2015 Type 2 diabetes mellitus without complication, without long- term current use of insulin E11.9 ; Lumbar disc disease M51.9 ; Polyneuropathy associated with underlying disease G63 and Neurogenic bladder N31.9 [facility] [address] [address]- 65[address] 16 Dec, 2015 [facility] [address] [place] [address] [id number] [address]- [address] 14 Dec, 2015 Other chronic pain G89.29 [facility] [address] [address]- 3769 12 Dec, 2015 [facility] [address] [place] [address] [id number] [address] Nov, [facility] [address] [place] [address] [id number] [place] [address] 07035- 7935 Nov, [facility] [address] [place] [id number] [place] [address] 97244- 7501 Nov, Type 2 diabetes mellitus without complication, [...] anemia, unspecified iron deficiency anemia type D50.9 [facility] [address] [place] [address] 93009- 0543 Nov, [facility] [address] [place] [id number] [place] [address] 01614- 3015 Nov, [facility] [address] [place] [address] 57116- 6891 Nov, [facility] [address] [place] [id number] [place] [address] 87820- 0163 Nov, [facility] [address] [address]- 5930 Nov, [facility] [address] [place] [address] 30000- 1618 Nov, [facility] [address] [place] [address] 30662- 2527 Nov, [facility] [address] [place] [id number] [place] [address] 34947- 0694 14 Jul, 2014 [facility] [address] [address]- 68[address] 13 Jul, 2014 [facility] [address] [place] [id number] [place] [address] 65790- 2546 August, [facility] [address] [facility] [id number] [place] [address]- [address]46 Jun, [facility] [address] [id number] [place] [address]- 2546 Oct, IMMUNIZATIONS No Known Immunizations SOCIAL HISTORY Never Assessed REASON FOR VISIT Refill request PLAN OF CARE VITAL SIGNS MEDICATIONS [...]
--- OUTSIDE RECORDS SUMMARY | 2018-01-22 14:23 | XMS REPORT ---
Author Author LAURIE MAHAJAN Organization [facility] Address [address] [place] [address] Care Team Providers Care [facility] Lifeguard Specialist Name Role Phone LAURIE MAHAJAN Unavailable PROBLEMS Type Condition ICD9-CM Code [id number] Code Onset Dates Condition Status SNOMED Code Problem Psychosis, unspecified psychosis type F29 Active 07495717 Problem Polyneuropathy associated with underlying disease G63 Active 762569301 Problem Lumbar disc disease M51.9 Active 99907033 Problem Generalized anxiety disorder F41.1 Active 71260442 Problem Gastroesophageal reflux disease without esophagitis K21.9 Active 755775785 Problem Type 2 diabetes mellitus without complication, without long-term current use of insulin E11.9 Active 577837235 Problem Neurogenic bladder N31.9 Active 542712772 Problem Other chronic pain G89.29 Active 09728943 Problem Insomnia, unspecified type G47.00 Active 512041989 Problem Nicotine abuse Z72.0 Active 22486561 Problem Chronic pain disorder G89.4 Active 773575983 Problem Fibromyalgia M79.7 Active 735517875 Problem Meniere disease, unspecified laterality H81.09 Active 04994813 Problem Irritable bowel syndrome with diarrhea K58.0 Active 784089432 ALLERGIES No Information ENCOUNTERS Encounter Location Date Diagnosis [facility] [address] [facility] [id number], [place] [address] Jul, Generalized anxiety disorder F41.1 [facility] [address] [facility] [id number], [place] [address] Jul, [place] [address] [facility] [id number], [place] [address] Jul, [facility]51.9 [facility] [address] [place] [id number] Jun, Urinary tract infection without hematuria, site unspecified N39.0 ; Bilateral impacted cerumen H61.23 ; Loose stools R19.5 and Type 2 diabetes mellitus without complication, without long-term current use of insulin E11.9 [facility] [address] [address] Jun, [facility] [address] [address] Jun, Fibromyalgia M79.7 [facility] [address] [place] [address] 12 Jun, 2017 Breast mass, right N63.10 [place] [address] [place] [id number] [place] [address]- [address] 09 Jun, 2017 Breast mass, right N63.[address] [id number] Jun, Breast mass, right N63.10 ; Type 2 diabetes mellitus without complication , without long-term current use of insulin E11.9 and Fibromyalgia M79.7 [place] [address] [address] Jun, Gastroesophageal reflux disease without esophagitis K21.9 [place] [id number] [place] [id number] Jun, Lumbar disc disease M51.9 [facility] [address] [place] [id number], [place] [address] May, [facility] [address] [place] [address] [id number] [place] [id number] May, [facility] [id number] [address] May, [place] [address] [place] [id number] [place] [id number] May, Lumbar disc disease M51.9 [facility] [id number][place] [address] Apr, [facility] [address] [id number] Apr, Viral upper respiratory tract infection J06.9 and Impacted cerumen, bilateral H61.23 [facility] [id number][place] [id number] Apr, [facility] [address] [place] [address] [id number] [address] Apr, [facility] [id number][place] [address] Apr, Lumbar disc disease M51.[address] [facility] [address] [id number] Mar, Lumbar disc disease M51.9 and Fibromyalgia M79.7 [facility] [address] [place] [id number] Mar, [facility] [id number], [place] [id number] Feb, [facility] [address] [place] [id number] [address] Jan, Type 2 diabetes mellitus without complication, without long- term current use of insulin E11.[address] [facility] [address] [id number] Jan, Type 2 diabetes mellitus without complication, without long-term current use of insulin E11.9 ; Fibromyalgia M79.7 and Lumbar disc disease M51.9 [facility] [id number], [place] [id number] Jan, [facility] [address] [place] [id number] [address] Jan, [facility] [address] [place] [address] [id number], [place] [address] Dec, [facility] [id number], [place] [id number] Dec, [facility] [address] [place] [id number], [place] [address] Dec, [facility] [address] [place] [id number][place] [address] Nov, Pre-procedure lab exam Z01.812 [facility] [address] [id number], [place] [address] Nov, Ventral hernia without obstruction or gangrene K43.9 [facility] [address] [place] [id number], [place] [id number] Nov, [facility] [address] [id number][place] [address] Nov, [facility] [address] [id number] Nov, Ventral hernia without obstruction or gangrene K43.9 [facility] [address] [id number] Nov, Fibromyalgia M79.7 and Polyneuropathy associated with underlying disease G63 [facility] [address] [facility] [id number], [place] [address] Oct, [facility] [address] [id number], [place] [address] Oct, [facility] [address] [id number], [place] [address] Oct, [facility] [address] [id number], [place] [id number] Oct, [facility] [address] [id number], [place] [address] Sep, [facility] [address] [facility] [id number], [place] [address] Sep, [facility] [address] [facility] [id number], [place] [address] Sep, [facility] [address] [facility] [id number], [place] [address] August, [facility] [address] [address] August, Right medial knee pain M25.561 [facility] [place] [facility] [address] [id number] [place] [address] August, [facility] [place] [facility] [address] [id number] [place] [address] August, [facility] [place] [facility] [address] [facility] [id number] [place] [address]- [address] August, [facility] [place] [facility] [address] [id number], [place] [id number] August, [facility] [place] [facility] [address] [facility] [id number] [place] [address] August, [facility] [place] [facility] [address] [id number], [place] [address] August, [facility] [place] [facility] [address] [place] [id number], [place] [id number] Jul, [facility] [place] [facility] [address] [facility] [id number], [place] [address] Jul, [facility] [place] [facility] [address] [id number], [place] [id number] Jul, [facility] [place] [facility] [address] [facility] [id number], [place] [address] Jun, [facility] [place] [facility] [address] [facility] [id number], [place] [address] Jun, [facility] [place] [facility] [address] [facility] [id number], [place] [address] May, [facility] [place] [facility] [address] [id number], [place] [address] May, [facility] [place] [facility] [address] [id number], [place] [address] May, [facility] [place] [facility] [address] [facility] [id number], [place] [address]- [address] May, [facility] [place] [facility] [address] [facility] [id number] [place] [address]- [address] Apr, [facility] [address] [place] [id number] Apr, Upper respiratory infection with cough and congestion J06.9 [facility] [address] [place] [id number] [place] [id number] 10 Apr, 2016 [facility] [address] [place] [id number] [place] [address]15- 7686 Apr, [facility] [address] [place] [address] [id number] [place] [address] 91775- 4486 Mar, [facility] [address] [place] [id number] [place] [address] 72959- 9177 Mar, [facility] [address] [place] [address] [id number] [place] [address] 30091- 4197 Mar, Other chronic pain G89.29 [facility] [address] [place] [address] [id number] [place] [address] 21240- 1516 Mar, [facility] [address] [place] [id number] [place] [address] 09342- 1820 Mar, [facility] [address] [place] [address] [id number] [place] [address] 35803- 3226 Feb, [facility] [address] [place] [address] 22255- 7651 Feb, [facility] [address] [place] [address] Feb, Insomnia, unspecified type G47.00 and Swelling of face R22.0 [facility] [address], [place] [address]- [address] Feb, [facility] [address] [place] [id number] [place] [address] 28517- 2535 14 Feb, 2016 [facility] [address] [place] [address] 64744- 3450 07 Feb, 2016 [facility] [id number] [place] [address] 66137- 7086 Feb, [facility] [address], [place] [address]- [address] Jan, [facility] [address]65[address], [place] [address]- 6[address] Jan, [facility] [address]65[address], [place] [address]- [address] Jan, Neurogenic bladder N31.9 [facility] [address]00565[address], [place] [address]- 2556 Jan, [facility] [id number] [place] [address] 92849- 2667 Jan, [facility] [address]00565[address], [place] [address]- [address] Jan, [facility] [id number] [place] [address] 16630- 6226 Jan, [facility] [address]65[address], [place] [address] Jan, Screening for breast cancer Z12.39 [facility] [address], [place] [address]- 8[address] Jan, [facility] [address], [place] [address] 27 Dec, 2015 Type 2 diabetes mellitus without complication, without long- term current use of insulin E11.9 ; Lumbar disc disease M51.9 ; Polyneuropathy associated with underlying disease G63 and Neurogenic bladder N31.9 [facility] [address], [place] [address] 16 Dec, 2015 [facility] [address] [place] [address] [id number], [place] [address]- [address] 14 Dec, 2015 Other chronic pain G89.29 [facility] [address], [place] [address]76 12 Dec, 2015 [facility] [address] [place] [address] [id number], [place] [address]- 4724 Nov, [facility] [address] [place] [id number] [place] [address] 73261- 3208 Nov, [facility] [address] [place] [id number] [place] [address] 14167- 3565 Nov, Type 2 diabetes mellitus without complication, [...] anemia, unspecified iron deficiency anemia type D50.9 [facility] [id number] [place] [address] 13943- 9198 Nov, [facility] [address] [place] [id number] [place] [address] 82165- 2592 Nov, [facility] [id number] [place] [address] 62190- 4550 Nov, [facility] [address] [place] [id number] [place] [address] 25956- 2810 Nov, [facility] [address], [place] [address]- 8571 Nov, [facility] [id number] [place] [address] 24166- 9624 Nov, [facility] [id number] [place] [address] 90081- 9855 Nov, [facility] [address] [place] [id number] [place] [address] 06967- 0148 14 Jul, 2014 [facility] [address], [place] [address]- 7535 13 Jul, 2014 [facility] [address] [place] [id number] [place] [address] 27505- 7796 August, [facility] [address] [facility] [id number] [place] [address]- 2546 Jun, [facility] [address] [facility] [id number] [place] [address]- 2546 Oct, IMMUNIZATIONS No Known Immunizations SOCIAL HISTORY Never Assessed REASON FOR VISIT Refill request PLAN OF CARE VITAL SIGNS MEDICATIONS Unknown [...]
--- OUTSIDE RECORDS SUMMARY | 2018-01-22 14:23 | XMS REPORT ---
Author Author LAURIE MAHAJAN Organization [facility] Address [address] [place] [address] Care Team Providers Care Pharmacognosist Name Role Phone LAURIE MAHAJAN Unavailable PROBLEMS Type Condition ICD9-CM Code UWX40-RO Code Onset Dates Condition Status SNOMED Code Problem Psychosis, unspecified psychosis type F29 Active 95383905 Problem Polyneuropathy associated with underlying disease G63 Active 944989138 Problem Lumbar disc disease M51.9 Active 57921827 Problem Generalized anxiety disorder F41.1 Active 37821255 Problem Gastroesophageal reflux disease without esophagitis K21.9 Active 852905201 Problem Type 2 diabetes mellitus without complication, without long-term current use of insulin E11.9 Active 682176737 Problem Neurogenic bladder N31.9 Active 914252546 Problem Other chronic pain G89.29 Active 38932849 Problem Insomnia, unspecified type G47.00 Active 549861977 Problem Nicotine abuse Z72.0 Active 39077481 Problem Chronic pain disorder G89.4 Active 248684172 Problem Fibromyalgia M79.7 Active 790312869 Problem Meniere disease, unspecified laterality H81.09 Active 03126717 Problem Irritable bowel syndrome with diarrhea K58.0 Active 945327726 ALLERGIES No Information ENCOUNTERS Encounter Location Date Diagnosis [facility] [id number] [address] August, [facility] [id number] [address] Jul, Generalized anxiety disorder F41.1 [facility] [address] [address] Jul, [facility] [id number] [address] Jul, Lumbar disc disease M51.9 [facility] [address] [place] [id number] Jun, Urinary tract infection without hematuria, site unspecified N39.0 ; Bilateral impacted cerumen H61.23 ; Loose stools R19.5 and Type 2 diabetes mellitus without complication, without long-term current use of insulin E11.9 [facility] [address] [address] Jun, [facility] [address] [place] [address] Jun, Fibromyalgia M79.7 [facility] [id number] [place] [address]- [address] Jun, Breast mass, right N63.10 [place] [address] [address] Jun, Breast mass, right N63.10 [facility] [address] [place] [id number] Jun, Breast mass, right N63.10 ; Type 2 diabetes mellitus without complication , without long-term current use of insulin E11.9 and Fibromyalgia M79.7 [facility] [address] [place] [address] Jun, Gastroesophageal reflux disease without esophagitis K21.9 [facility] [id number] [id number] Jun, Lumbar disc disease M51.9 [facility] [address], [place] [address] May, [facility] [id number] [id number] May, [facility] [id number] [place] [id number] May, [facility] [id number] [id number] May, Lumbar disc disease M51.9 [facility] [address] [id number] [address] Apr, [facility] [address] [id number] Apr, Viral upper respiratory tract infection J06.9 and Impacted cerumen, bilateral H61.23 [facility] [address] [id number] [id number] Apr, [facility] [address] [address] Apr, [facility] [id number] [address] Apr, Lumbar disc disease M51.9 [facility] [address] [place] [id number] Mar, Lumbar disc disease M51.9 and Fibromyalgia M79.7 [facility] [id number] [address] Mar, [facility] [id number] [id number] Feb, [facility] [id number] [address] Jan, Type 2 diabetes mellitus without complication, without long- term current use of insulin E11.9 [facility] [address] [place] [id number] Jan, Type 2 diabetes mellitus without complication, without long-term current use of insulin E11.9 ; Fibromyalgia M79.7 and Lumbar disc disease M51.9 [facility] [address] [id number] [id number] Jan, [facility] [id number] [id number] Jan, [facility] [id number], [place] [address] Dec, [facility] [address] [id number], [place] [id number] Dec, [facility] [address] [id number] [id number] Dec, [facility] [address] [id number] [address] Nov, Pre-procedure lab exam Z01.812 [facility] [address] [facility] [id number][place] [address] Nov, Ventral hernia without obstruction or gangrene K43.9 [facility] [address] [id number], [place] [address] Nov, [facility] [address] [id number] [address] Nov, [facility] [address] [place] [address] Nov, Ventral hernia without obstruction or gangrene K43.9 [facility] [address] [place] [id number] Nov, Fibromyalgia M79.7 and Polyneuropathy associated with underlying disease G63 [facility] [id number] [address] Oct, [facility] [place] [facility] [address] [id number][place] [address] Oct, [facility] [place] [facility] [address] [id number] [id number] Oct, [facility] [place] [facility] [address] [id number] [id number] Oct, [facility] [place] [facility] [address] [id number], [place] [id number] Sep, [facility] [address] [facility] [id number], [place] [address] Sep, [facility] [address] [facility] [id number][place] [address] Sep, [facility] [address] [facility] [id number][place] [address] August, [facility] [address] [place] [address] August, Right medial knee pain M25.561 [facility] [place] [facility] [address] [id number] [place] [address] August, [facility] [place] [facility] [address] [id number] [place] [address] August, [facility] [place] [facility] [address] [id number] [place] [address]- [address] August, [facility] [place] [facility] [address] [id number] [place] [id number] August, [facility] [place] [facility] [address] [id number] [place] [address] August, [facility] [place] [facility] [address] [id number] [place] [id number] August, [facility] [place] [facility] [address] [id number], [place] [address] Jul, [facility] [place] [facility] [address] [id number] [place] [address] Jul, [facility] [place] [facility] [address] [id number], [place] [id number] Jul, [facility] [place] [facility] [address] [facility] [id number] [place] [address]- [address] Jun, [facility] [place] [facility] [address] [id number], [place] [address] Jun, [facility] [place] [facility] [address] [id number] [place] [address]- [address] May, [facility] [place] [facility] [address] [id number] [place] [address]- [address] May, [facility] [place] [facility] [address] [id number] [place] [address]- [address] May, [facility] [place] [facility] [address] [id number], [place] [address] May, [facility] [address] [place] [address] Apr, [facility] [address] [id number] Apr, Upper respiratory infection with cough and congestion J06.9 [facility] [id number] [place] [id number] Apr, [facility] [id number] [place] [address]- [address] Apr, [facility] [id number] [place] [address]- 7969 Mar, [facility] [id number] [place] [address]- 0943 Mar, [facility] [id number] [place] [address]- 0905 Mar, Other chronic pain G89.29 [facility] [id number] [place] [address]- 1757 Mar, [facility] [id number] [place] [address]- 6092 Mar, [facility] [address] [place] [address]3694- 2325 Feb, [facility] [id number] [place] [address]- 8685 Feb, [facility] [address] [place] [id number] Feb, Insomnia, unspecified type G47.00 and Swelling of face R22.0 [facility] [id number] [place] [address]- 8897 Feb, [facility] [address] [place] [address] 18663- 0344 14 Feb, 2016 [facility] [id number] [place] [address]73- 7996 07 Feb, 2016 [facility] [address], [place] [address]- [address] Feb, [facility] [address] [address] 24 Jan, 2016 [facility] [address], [place] [address]- [address] Jan, [facility] [id number] [place] [address]45- 4605 14 Jan, 2016 Neurogenic bladder N31.9 [facility] [id number] [place] [address]283- 4208 10 Jan, 2016 [facility] [address], [place] [address]- [address]49 Jan, [facility] [id number] [place] [address] 35972- 5487 Jan, [facility] [address], [place] [address] Jan, [facility] [address] [place] [address]64- 7994 Jan, Screening for breast cancer Z12.39 [facility] [address], [place] [address]- [address] Jan, [facility] [address], [place] [address]- [address] 27 Dec, 2015 Type 2 diabetes mellitus without complication, without long- term current use of insulin E11.9 ; Lumbar disc disease M51.9 ; Polyneuropathy associated with underlying disease G63 and Neurogenic bladder N31.9 [facility] [address], [place] [address]- 8577 16 Dec, 2015 [facility] [address], [place] [address]- 4[address] 14 Dec, 2015 Other chronic pain G89.29 [facility] [address] [id number] [address]- 57[address] Dec, [facility] [id number] [place] [address] 21598- 9468 Nov, [facility] [id number] [place] [address] 08083- 2017 Nov, [facility] [id number] [place] [address] 15717- 4456 Nov, Type 2 diabetes mellitus without complication, [...] anemia, unspecified iron deficiency anemia type D50.9 [facility] [address] [place] [address] 90714- 7861 Nov, [facility] [address] [place] [address] 20972- 7448 Nov, [facility] [address] [place] [address] 19470- 9796 Nov, [facility] [address], [place] [address]- 6946 Nov, [facility] [address] [place] [address] 80390- 9007 Nov, [facility] [address] [place] [address] 39215- 2410 Nov, [facility] [id number] [place] [address] 18821- 9786 Nov, [facility] [address], [place] [address]- 5861 14 Jul, 2014 [facility] [id number] [place] [address] 03625- 2546 Jul, [facility] [address] [facility] [id number] [place] [address]- 2546 August, [facility] [address] [facility] [id number], [place] [address]- 2546 Jun, [facility] [address] [facility] [id number] [place] [address]- 2546 Oct, IMMUNIZATIONS No Known Immunizations SOCIAL HISTORY Never Assessed REASON FOR VISIT Controlled Med Refill PLAN OF CARE VITAL SIGNS MEDICATIONS Medication Instructions Dosage Frequency Start Date End Date Duration Status Hydrocodone-Acetaminophen 7.5-325 MG Orally 3 times a day 1 tablet 8h Dec, Jan, 28 days Active RESULTS No Results [...]
--- OUTSIDE RECORDS SUMMARY | 2018-01-22 14:23 | XMS REPORT ---
Author Author LAURIE MAHAJAN Organization [facility] Address [address] [place] [address] Care Team Providers Care Global Safety Officer Name Role Phone LAURIE MAHAJAN Unavailable PROBLEMS Type Condition ICD9-CM Code VMC86-FJ Code Onset Dates Condition Status SNOMED Code Problem Irritable bowel syndrome with diarrhea K58.0 Active 453655419 Problem Lumbar disc disease M51.9 Active 67978273 Problem Psychosis, unspecified psychosis type F29 Active 27547935 Problem Meniere disease, unspecified laterality H81.09 Active 65962351 Problem Nicotine abuse Z72.0 Active 03981144 Problem Chronic pain disorder G89.4 Active 079364554 Problem Fibromyalgia M79.7 Active 316869792 Problem Gastroesophageal reflux disease without esophagitis K21.9 Active 088469669 Problem Other chronic pain G89.29 Active 13045459 Problem Neurogenic bladder N31.9 Active 197480782 Problem Polyneuropathy associated with underlying disease G63 Active 138000551 Problem Insomnia, unspecified type G47.00 Active 233613859 Problem Type 2 diabetes mellitus without complication, without long-term current use of insulin E11.9 Active 718046717 ALLERGIES No Information ENCOUNTERS Encounter Location Date Diagnosis [place] [id number] [address] Jul, [facility] [id number] [address] Jul, Lumbar disc disease M51.9 [facility] [address] [place] [id number] Jun, Urinary tract infection without hematuria, site unspecified N39.0 ; Bilateral impacted cerumen H61.23 ; Loose stools R19.5 and Type 2 diabetes mellitus without complication, without long-term current use of insulin E11.9 [place] [address] [address] Jun, [facility] [address] [address] Jun, Fibromyalgia M79.7 [facility] [address] [address] Jun, Breast mass, right N63.10 [facility] [address] [address] Jun, Breast mass, right N63.[address] [id number] Jun, Breast mass, right N63.10 ; Type 2 diabetes mellitus without complication , without long-term current use of insulin E11.9 and Fibromyalgia M79.7 [place] [address] [address] Jun, Gastroesophageal reflux disease without esophagitis K21.9 [facility] [id number] [place] [address] Jun, Lumbar disc disease M51.9 [facility] [address] [address] May, [facility] [id number] [place] [id number] May, [facility] [id number] [place] [id number] May, [facility] [id number] [id number] May, Lumbar disc disease M51.9 [facility] [id number] [place] [id number] Apr, [facility] [address] [place] [id number] Apr, Viral upper respiratory tract infection J06.9 and Impacted cerumen, bilateral H61.23 [facility] [address] [id number] [id number] Apr, [facility] [place] [id number] [address] Apr, [facility] [id number] [place] [address] Apr, Lumbar disc disease M51.9 [facility] [address] [place] [id number] Mar, Lumbar disc disease M51.9 and Fibromyalgia M79.7 [facility] [id number] [address] Mar, [facility] [id number] [place] [id number] Feb, [facility] [id number] [address] Jan, Type 2 diabetes mellitus without complication, without long- term current use of insulin E11.[address] [facility] [address] [place] [address] Jan, Type 2 diabetes mellitus without complication, without long-term current use of insulin E11.9 ; Fibromyalgia M79.7 and Lumbar disc disease M51.9 [facility] [id number] [place] [id number] Jan, [facility] [id number] [place] [id number] Jan, [facility] [id number] [address] Dec, [facility] [address] [id number] [id number] Dec, [facility] [id number] [place] [address] Dec, [facility] [address] [id number] [place] [address] Nov, Pre-procedure lab exam Z01.812 [facility] [address] [facility] [id number] [address] Nov, Ventral hernia without obstruction or gangrene K43.9 [facility] [address] [id number] [place] [address] Nov, [facility] [address] [id number] [address] Nov, [facility] [address] [place] [id number] Nov, Ventral hernia without obstruction or gangrene K43.9 [facility] [address] [place] [address] Nov, Fibromyalgia M79.7 and Polyneuropathy associated with underlying disease G63 [facility] [id number] [address] Oct, [facility] [address] [id number] [place] [id number] Oct, [facility] [address] [id number] [place] [address] Oct, [facility] [address] [id number] [place] [address] Oct, [facility] [id number] [place] [address] Sep, [facility] [address] [facility] [id number] [place] [address] Sep, [facility] [id number] [address] Sep, [facility] [address] [facility] [id number] [place] [address] August, [facility] [address] [place] [id number] August, Right medial knee pain M25.561 [facility] [address] [facility] [id number] [address] August, [facility] [id number] [address] August, [facility] [address] [id number] [place] [address] August, [facility] [address] [id number] [id number] August, [facility] [address]005[address] [address] August, [facility] [id number] [place] [id number] August, [facility] [address] [id number] [address] Jul, [facility] [address] [address] Jul, [facility] [address] [id number] [id number] Jul, [facility] [address]005[address] [address] Jun, [facility] [address] [address] Jun, [facility] [address] [address] May, [facility] [address] [address] May, [facility] [id number] [address] May, [facility] [id number] [address] May, [facility] [id number] [address] Apr, [facility] [address] [place] [address] Apr, Upper respiratory infection with cough and congestion J06.9 [facility] [address] [id number] [address] Apr, [facility] [address] [address] Apr, [facility] [address] [address] Mar, [facility] [id number] [place] [address] Mar, [facility] [address] [address] Mar, Other chronic pain G89.29 [facility] [id number] [place] [address] Mar, [facility] [id number] [place] [address]- [address] Mar, [facility] [id number] [place] [address]- [address] Feb, [facility] [address] [address] Feb, [facility] [address] [place] [address] Feb, Insomnia, unspecified type G47.00 and Swelling of face R22.0 [facility] [address] [address] Feb, [facility] [address] [address]- [address] 14 Feb, 2016 [facility] [address] [address] Feb, [facility] [address] [address] Feb, [facility] [address] [address]- [address] 24 Jan, 2016 [facility] [address] [address]- [address] 17 Jan, 2016 [facility] [id number] [place] [address]- [address] 14 Jan, 2016 Neurogenic bladder N31.9 [facility] [id number] [place] [address]- 2744 Jan, [facility] [id number] [place] [address]- [address] Jan, [facility] [id number] [place] [address]- 8179 Jan, [facility] [id number] [place] [address]- 8228 Jan, [facility] [id number] [place] [address]- 5[address] Jan, Screening for breast cancer Z12.39 [facility] [id number] [place] [address]281- 3765 Jan, [facility] [id number] [place] [address]674- 1643 27 Dec, 2015 Type 2 diabetes mellitus without complication, without long- term current use of insulin E11.9 ; Lumbar disc disease M51.9 ; Polyneuropathy associated with underlying disease G63 and Neurogenic bladder N31.9 [facility] [id number] [place] [address]- 2213 16 Dec, 2015 [facility] [id number] [place] [address]- 7590 14 Dec, 2015 Other chronic pain G89.29 [facility] [id number] [place] [address] 17084- 4259 Dec, [facility] [id number] [place] [address] 79096- 9140 Nov, [facility] [id number] [place] [address] 23672- 9887 Nov, [facility] [address] [address] Nov, Type 2 diabetes mellitus without complication, [...] unspecified iron deficiency anemia type D50.9 [facility] [id number] [place] [address] 62477- 0829 Nov, [facility] [id number] [place] [address] 91789- 1692 Nov, [facility] [id number] [place] [address] 14763- 3438 Nov, [facility] [id number] [place] [address] 93924- 6377 Nov, [facility] [id number] [place] [address] 97044- 3245 Nov, [facility] [id number] [place] [address] 19162- 9574 Nov, [facility] [id number] [place] [address] 70509- 0091 Nov, [facility] [address] [id number] [address]- 5141 Jul, [facility] [id number] [place] [address] 14705- 1755 Jul, [facility] [id number] [place] [address] 72872- 6727 August, [facility] [address] [id number] [address]- 2989 Jun, [facility] [address] [facility] [id number] [place] [address]- [address] Oct, IMMUNIZATIONS No Known Immunizations SOCIAL HISTORY Never Assessed REASON FOR VISIT Decrease remeron PLAN OF CARE VITAL SIGNS MEDICATIONS Medication Instructions Dosage Frequency Start Date End Date Duration Status Mirtazapine 7.5 MG Orally Once a day for 1 week then stop 1 tablet at bedtime Active RESULTS No Results PROCEDURES No Known [...]
--- OUTSIDE RECORDS SUMMARY | 2018-01-22 14:24 | XMS REPORT ---
Author Author LAURIE MAHAJAN Organization [facility] Address [address] [place] [address] Care Team Providers Care Financial Advocate Name Role Phone LAURIE MAHAJAN Unavailable PROBLEMS Type Condition ICD9-CM Code RHS13-NW Code Onset Dates Condition Status SNOMED Code Problem Lumbar disc disease M51.9 Active 27916403 Problem Neurogenic bladder N31.9 Active 451215680 Problem Polyneuropathy associated with underlying disease G63 Active 756149403 Problem Anxiety F41.9 Active 59841010 Problem Generalized anxiety disorder F41.1 Active 53728934 Problem Insomnia, unspecified type G47.00 Active 444091925 Problem Type 2 diabetes mellitus without complication, without long-term current use of insulin E11.9 Active 427909942 Problem Gastroesophageal reflux disease without esophagitis K21.9 Active 031799609 Problem Other chronic pain G89.29 Active 92330485 Problem Psychosis, unspecified psychosis type F29 Active 86048901 Problem Fibromyalgia M79.7 Active 015348824 Problem Nicotine abuse Z72.0 Active 06527579 Problem Irritable bowel syndrome with diarrhea K58.0 Active 671341072 Problem Chronic pain disorder G89.4 Active 282057742 Problem Meniere disease, unspecified laterality H81.09 Active 87688450 ALLERGIES No Information ENCOUNTERS Encounter Location Date Diagnosis [facility] [id number] [address] Sep, Lumbar disc disease M51.9 [facility] [address], [place] [address] Sep, [facility] [address] [place] [address] August, Lumbar disc disease M51.9 [facility] [address], [place] [address] August, [facility] [address] [place] [id number] August, Meniere''s disease, unspecified laterality H81.09 and Type 2 diabetes mellitus without complication, without long-term current use of insulin E11.9 [place] [address], [place] [address] August, BMI 40.0-44.9, adult Z68.41 and Anxiety F41.9 [place] [address] [place] [address] 66380- 7795 Jul, Lumbar disc disease M51.9 [place] [id number] [place] [address] 62915- 2460 Jul, Generalized anxiety disorder F41.1 [place] [id number] [place] [address] 76514- 4441 Jul, [place] [id number] [place] [address]- 2220 Jul, Lumbar disc disease M51.[address] [id number] Jun, Urinary tract infection without hematuria, site unspecified N39.0 ; Bilateral impacted cerumen H61.23 ; Loose stools R19.5 and Type 2 diabetes mellitus without complication, without long-term current use of insulin E11.9 [place] [address], [place] [address] Jun, [place] [address] [place] [address] 83673- 4993 Jun, Fibromyalgia M79.7 [place] [id number] [place] [address] 08098- 1253 Jun, Breast mass, right N63.10 [place] [address] [place] [address] 05437- 7121 Jun, Breast mass, right N63.10 [facility] [address] [place] [id number] Jun, Breast mass, right N63.10 ; Type 2 diabetes mellitus without complication , without long-term current use of insulin E11.9 and Fibromyalgia M79.7 [facility] [address], [place] [address] Jun, Gastroesophageal reflux disease without esophagitis K21.9 [facility] [id number] [place] [id number] Jun, Lumbar disc disease M51.9 [facility] [address] [place] [address] 32074- 0880 May, [facility] [id number] [place] [id number] May, [facility] [id number] [place] [address] [id number] May, [facility] [id number] [place] [id number] May, Lumbar disc disease M51.9 [facility] [id number] [place] [id number] Apr, [facility] [address] [id number] Apr, Viral upper respiratory tract infection J06.9 and Impacted cerumen, bilateral H61.23 [facility] [id number] [place] [address] [id number] Apr, [facility] [id number], [place] [address] Apr, [facility] [id number] [place] [address] [id number] Apr, Lumbar disc disease M51.[address] [id number] Mar, Lumbar disc disease M51.9 and Fibromyalgia M79.7 [facility] [address] [place] [address]2059 2546 Mar, [facility] [address] [id number] [id number] Feb, [facility] [id number], [place] [address] 2546 Jan, Type 2 diabetes mellitus without complication, without long- term current use of insulin E11.9 [facility] [address] [place] [id number] Jan, Type 2 diabetes mellitus without complication, without long-term current use of insulin E11.9 ; Fibromyalgia M79.7 and Lumbar disc disease M51.9 [facility] [address] [id number] [id number] Jan, [facility] [id number] [id number] Jan, [facility] [id number], [place] [address] 2546 Dec, [facility] [address] [id number] [id number] Dec, [facility] [address] [id number] [id number] Dec, [facility] [address] [id number] [address] Nov, Pre-procedure lab exam Z01.812 [facility] [id number], [place] [address] Nov, Ventral hernia without obstruction or gangrene K43.9 [facility] [address] [id number] [id number] Nov, [facility] [address] [id number] [id number] Nov, [facility] [address] [place] [id number] Nov, Ventral hernia without obstruction or gangrene K43.9 [facility] [address] [place] [id number] Nov, Fibromyalgia M79.7 and Polyneuropathy associated with underlying disease G63 [facility] [id number], [place] [address] Oct, [facility] [address] [id number] [id number] Oct, [facility] [id number] [id number] Oct, [facility] [place] [facility] [address] [id number] [id number] Oct, [facility] [id number] [id number] Sep, [facility] [address], [place] [address] Sep, [facility] [address], [place] [address] 25[address] Sep, [facility] [address], [place] [address] August, [facility] [address] [place] [id number] August, Right medial knee pain M25.561 [facility] [id number], [place] [address] August, [facility] [address], [place] [address] August, [facility] [id number], [place] [address]- [address] August, [facility] [address] [id number] [id number] August, [facility] [id number], [place] [address]- [address] August, [facility] [address] [id number] [id number] August, [facility] [address] [id number] [id number] Jul, [facility] [address] [facility] [id number] [place] [address]- [address] Jul, [facility] [address] [id number] [id number] Jul, [facility] [address] [facility] [id number] [place] [address]- [address] Jun, [facility] [address] [id number] [place] [address]- 1647 Jun, [facility] [id number] [address]- [address] May, [facility] [id number] [place] [address]- 3555 May, [facility] [address] [place] [address]- 0[address] May, [facility] [id number], [place] [address]- 0689 May, [facility] [address], [place] [address]- [address] Apr, [facility] [address] [place] [id number] Apr, Upper respiratory infection with cough and congestion J06.9 [facility] [id number] [address] Apr, [facility] [id number], [place] [address]- 0073 Apr, [facility] [id number], [place] [address]- 9666 Mar, [facility] [id number], [place] [address]- 4181 Mar, [facility] [id number], [place] [address]- 5197 Mar, Other chronic pain G89.29 [facility] [id number] [place] [address] 30350- 3221 Mar, [facility] [id number] [place] [address] 58211- 6203 Mar, [facility] [id number] [place] [address] 53717- 4169 Feb, [facility] [id number] [place] [address] 29675- 3328 Feb, [facility] [address] [place] [id number] Feb, Insomnia, unspecified type G47.00 and Swelling of face R22.0 [facility] [id number] [place] [address] 52062- 2019 Feb, [facility] [id number] [place] [address] 83940- 5258 Feb, [facility] [id number] [place] [address] 73207- 9387 Feb, [facility] [id number] [place] [address] 43635- 6323 Feb, [facility] [id number] [place] [address] 13594- 2768 24 Jan, 2016 [facility] [id number] [place] [address] 89345- 2155 17 Jan, 2016 [facility] [id number] [place] [address] 52916- 0845 14 Jan, 2016 Neurogenic bladder N31.9 [facility] [id number] [place] [address] 88627- 9762 10 Jan, 2016 [facility] [id number] [place] [address] 38674- 0472 07 Jan, 2016 [facility] [id number] [place] [address] 24728- 7963 Jan, [place] [address], [place] [address]- [address] Jan, [place] [id number] [place] [address] Jan, Screening for breast cancer Z12.39 [place] [id number] [place] [address] 71980- 7732 Jan, [place] [id number] [place] [address] 33570- 5668 Dec, Type 2 diabetes mellitus without complication, without long- term current use of insulin E11.9 ; Lumbar disc disease M51.9 ; Polyneuropathy associated with underlying disease G63 and Neurogenic bladder N31.9 [place] [address] [place] [address] 19333- 9535 16 Dec, 2015 [place] [id number] [place] [address] 80444- 6812 14 Dec, 2015 Other chronic pain G89.29 [place] [id number] [place] [address] 60773- 3601 Dec, [place] [id number] [place] [address] 49591- 0891 Nov, [place] [address], [place] [address]- 9880 Nov, [place] [id number] [place] [address] 53755- 2124 Nov, Type 2 diabetes mellitus without complication, [...] anemia, unspecified iron deficiency anemia type D50.9 [place] [address], [place] [address]- 1317 Nov, [facility] [address], [place] [address]- 7326 Nov, [facility] [address], [place] [address]- 3973 Nov, [facility] [address], [place] [address]- 6890 Nov, [facility] [address], [place] [address]- 4878 Nov, [facility] [address] [place] [address] 77922- 3120 Nov, [facility] [address], [place] [address]- 4859 Nov, [facility] [address], [place] [address]- 4448 Jul, [facility] [address], [place] [address]- 8958 Jul, [facility] [address], [place] [address]- 7848 August, [facility] [address], [place] [address]- 0479 Jun, [facility] [id number], [place] [address]- 1820 Oct, IMMUNIZATIONS No Known Immunizations SOCIAL HISTORY Never Assessed REASON FOR VISIT not feeling well PLAN OF CARE VITAL SIGNS MEDICATIONS Unknown [...]
--- OUTSIDE RECORDS SUMMARY | 2018-01-22 14:24 | XMS REPORT ---
Author Author LAURIE MAHAJAN Organization [facility] Address [address] [place] [address] Care Team Providers Care Customer Care Assistant Name Role Phone LAURIE MAHAJAN Unavailable PROBLEMS Type Condition ICD9-CM Code GXQ39-MC Code Onset Dates Condition Status SNOMED Code Problem Lumbar disc disease M51.9 Active 85697125 Problem Neurogenic bladder N31.9 Active 832356165 Problem Polyneuropathy associated with underlying disease G63 Active 542541855 Problem Anxiety F41.9 Active 83866641 Problem Generalized anxiety disorder F41.1 Active 63436720 Problem Insomnia, unspecified type G47.00 Active 631454768 Problem Type 2 diabetes mellitus without complication, without long-term current use of insulin E11.9 Active 267182935 Problem Gastroesophageal reflux disease without esophagitis K21.9 Active 157815347 Problem Other chronic pain G89.29 Active 41885048 Problem Psychosis, unspecified psychosis type F29 Active 01690416 Problem Fibromyalgia M79.7 Active 265425027 Problem Nicotine abuse Z72.0 Active 20532082 Problem Irritable bowel syndrome with diarrhea K58.0 Active 400985662 Problem Chronic pain disorder G89.4 Active 989631398 Problem Meniere disease, unspecified laterality H81.09 Active 57169449 ALLERGIES No Information ENCOUNTERS Encounter Location Date Diagnosis [facility] [id number] [address] Sep, Lumbar disc disease M51.9 [facility] [address] [place] [address]879- 1606 Sep, [facility] [address] [place] [address] 88540- 2316 August, Lumbar disc disease M51.9 [facility] [address] [address] August, [facility] [address] [place] [place] [id number] August, Meniere''s disease, unspecified laterality H81.09 and Type 2 diabetes mellitus without complication, without long-term current use of insulin E11.9 [place] [address] [address] August, BMI 40.0-44.9, adult Z68.41 and Anxiety F41.9 [place] [address] [place] [address] 22282- 0761 Jul, Lumbar disc disease M51.9 [place] [id number] [place] [address] 19555- 6679 Jul, Generalized anxiety disorder F41.1 [place] [id number] [place] [address] 95912- 2593 Jul, [place] [id number] [place] [address] 93120- 1622 Jul, Lumbar disc disease M51.[address] [id number] Jun, Urinary tract infection without hematuria, site unspecified N39.0 ; Bilateral impacted cerumen H61.23 ; Loose stools R19.5 and Type 2 diabetes mellitus without complication, without long-term current use of insulin E11.9 [place] [address] [address] Jun, [place] [address] [place] [address] 05469- 2148 Jun, Fibromyalgia M79.7 [place] [id number] [place] [address] 83572- 0008 Jun, Breast mass, right N63.10 [place] [address] [place] [address] 22553- 3095 Jun, Breast mass, right N63.10 [facility] [address] [place] [id number] Jun, Breast mass, right N63.10 ; Type 2 diabetes mellitus without complication , without long-term current use of insulin E11.9 and Fibromyalgia M79.7 [facility] [address] [address] Jun, Gastroesophageal reflux disease without esophagitis K21.9 [facility] [id number] [place] [address] [id number] Jun, Lumbar disc disease M51.9 [facility] [address] [place] [address] 18401- 0430 May, [facility] [id number] [place] [address] [id number] May, [facility] [id number] [place] [address] [id number] May, [facility] [id number] [place] [address] [id number] May, Lumbar disc disease M51.9 [facility] [id number] [place] [address] [id number] Apr, [facility] [address] [id number] Apr, Viral upper respiratory tract infection J06.9 and Impacted cerumen, bilateral H61.23 [facility] [id number] [place] [address] [id number] Apr, [facility] [id number] [address] Apr, [facility] [id number] [place] [address] [id number] Apr, Lumbar disc disease M51.[address] [id number] Mar, Lumbar disc disease M51.9 and Fibromyalgia M79.7 [facility] [address] [place] [address] 73717 2546 Mar, [facility] [address] [id number] [id number] Feb, [facility] [id number] [address] 2546 Jan, Type 2 diabetes mellitus without complication, without long- term current use of insulin E11.9 [facility] [address] [place] [id number] Jan, Type 2 diabetes mellitus without complication, without long-term current use of insulin E11.9 ; Fibromyalgia M79.7 and Lumbar disc disease M51.9 [facility] [address] [id number] [id number] Jan, [facility] [id number] [place] [id number] Jan, [facility] [id number] [address] 2546 Dec, [facility] [address] [id number] [place] [id number] Dec, [facility] [address] [id number] [id number] Dec, [facility] [address] [id number] [place] [id number] Nov, Pre-procedure lab exam Z01.812 [facility] [id number] [address] Nov, Ventral hernia without obstruction or gangrene K43.9 [facility] [address] [id number] [place] [id number] Nov, [facility] [address] [id number] [place] [id number] Nov, [facility] [address] [place] [id number] Nov, Ventral hernia without obstruction or gangrene K43.9 [facility] [address] [place] [id number] Nov, Fibromyalgia M79.7 and Polyneuropathy associated with underlying disease G63 [facility] [id number] [address] Oct, [facility] [address] [id number] [place] [id number] Oct, [facility] [id number] [place] [id number] Oct, [facility] [place] [facility] [address] [id number] [place] [id number] Oct, [facility] [id number] [id number] Sep, [facility] [address] [address] 2546 Sep, [facility] [address] [address]- 2546 Sep, [facility] [address] [address] August, [facility] [address] [place] [id number] August, Right medial knee pain M25.561 [facility] [id number] [address] 1326 August, [facility] [address] [address]- 25[address] August, [facility] [id number] [address]- 2546 August, [facility] [address] [id number] [place] [address] August, [facility] [id number] [address] 2546 August, [facility] [address] [id number] [place] [id number] August, [facility] [address] [id number] [place] [id number] Jul, [facility] [address] [facility] [id number] [address]- [address] Jul, [facility] [address] [id number] [place] [id number] Jul, [facility] [address] [facility] [id number] [place] [address]- 6472 Jun, [facility] [address] [id number] [place] [address]- 1423 Jun, [facility] [id number] [place] [address]- 0779 May, [facility] [id number] [place] [address]- 7095 May, [facility] [address] [place] [address]- 6433 May, [facility] [id number] [address]- 0235 May, [facility] [address] [address]- 75[address] Apr, [facility] [address] [place] [id number] Apr, Upper respiratory infection with cough and congestion J06.9 [facility] [id number] [place] [id number] Apr, [facility] [id number] [address]- 7598 Apr, [facility] [id number] [address]- 4186 Mar, [facility] [id number] [address]- 0606 Mar, [facility] [id number] [address]- 0599 Mar, Other chronic pain G89.29 [facility] [id number] [place] [address] 77791- 6768 Mar, [facility] [id number] [place] [address] 65818- 4325 Mar, [facility] [id number] [place] [address] 94422- 3639 Feb, [facility] [id number] [place] [address] 19876- 7476 Feb, [facility] [address] [place] [id number] Feb, Insomnia, unspecified type G47.00 and Swelling of face R22.0 [facility] [id number] [place] [address] 45214- 0735 Feb, [facility] [id number] [place] [address] 63635- 9253 Feb, [facility] [id number] [place] [address] 38162- 4994 Feb, [facility] [id number] [place] [address] 86132- 4982 Feb, [facility] [id number] [place] [address] 92538- 4076 24 Jan, 2016 [facility] [id number] [place] [address] 27963- 4278 17 Jan, 2016 [facility] [id number] [place] [address] 08646- 5761 14 Jan, 2016 Neurogenic bladder N31.9 [facility] [id number] [place] [address] 41941- 5574 10 Jan, 2016 [facility] [id number] [place] [address] 76168- 0202 07 Jan, 2016 [facility] [id number] [place] [address] 35111- 2424 Jan, [place] [address] [address]- 4242 Jan, [place] [id number] [place] [address]4 Jan, Screening for breast cancer Z12.39 [place] [id number] [place] [address] 80578- 0417 Jan, [place] [id number] [place] [address] 14275- 1175 Dec, Type 2 diabetes mellitus without complication, without long- term current use of insulin E11.9 ; Lumbar disc disease M51.9 ; Polyneuropathy associated with underlying disease G63 and Neurogenic bladder N31.9 [place] [address] [place] [address] 01434- 0419 16 Dec, 2015 [place] [id number] [place] [address] 21610- 7148 14 Dec, 2015 Other chronic pain G89.29 [place] [id number] [place] [address] 84941- 1402 Dec, [place] [id number] [place] [address] 99768- 6650 Nov, [place] [address] [address]- 8475 Nov, [place] [id number] [place] [address] 62951- 7185 Nov, Type 2 diabetes mellitus without complication, [...] anemia, unspecified iron deficiency anemia type D50.9 [place] [address]- 0455 Nov, [facility] [address] [address]- 0547 Nov, [facility] [address] [address]- 8192 Nov, [facility] [address] [address]- 3693 Nov, [facility] [address] [address]- 7988 Nov, [facility] [address] [place] [address] 26815- 9688 Nov, [facility] [address] [address]- 2140 Nov, [facility] [address] [address]- 5945 Jul, [facility] [address] [address]- 8696 Jul, [facility] [address] [address]- 2333 August, [facility] [address] [address]- 2504 Jun, [facility] [address] [address]- 9249 Oct, IMMUNIZATIONS No Known Immunizations SOCIAL HISTORY Never Assessed REASON FOR VISIT cough and congestion PLAN OF CARE VITAL SIGNS MEDICATIONS Unknown [...]
--- OUTSIDE RECORDS SUMMARY | 2018-01-22 14:25 | XMS REPORT ---
Author Author LAURIE MAHAJAN Organization [facility] Address [address] [place] [address] Care Team Providers Care Scientific Advisor Name Role Phone LAURIE MAHAJAN Unavailable PROBLEMS Type Condition ICD9-CM Code QYP60-LU Code Onset Dates Condition Status SNOMED Code Problem Psychosis, unspecified psychosis type F29 Active 59429230 Problem Polyneuropathy associated with underlying disease G63 Active 818372890 Problem Lumbar disc disease M51.9 Active 09007311 Problem Generalized anxiety disorder F41.1 Active 82463265 Problem Gastroesophageal reflux disease without esophagitis K21.9 Active 348881541 Problem Type 2 diabetes mellitus without complication, without long-term current use of insulin E11.9 Active 032828734 Problem Neurogenic bladder N31.9 Active 460310123 Problem Other chronic pain G89.29 Active 05935264 Problem Insomnia, unspecified type G47.00 Active 709917050 Problem Nicotine abuse Z72.0 Active 76930888 Problem Chronic pain disorder G89.4 Active 660119828 Problem Fibromyalgia M79.7 Active 528134655 Problem Meniere disease, unspecified laterality H81.09 Active 52990700 Problem Irritable bowel syndrome with diarrhea K58.0 Active 638338905 ALLERGIES No Information ENCOUNTERS Encounter Location Date Diagnosis [facility] [id number] [address] August, [facility] [id number] [address] Jul, Generalized anxiety disorder F41.1 [facility] [address] [address] Jul, [facility] [id number], [place] [address] Jul, Lumbar disc disease M51.9 [facility] [address] [place] [id number] Jun, Urinary tract infection without hematuria, site unspecified N39.0 ; Bilateral impacted cerumen H61.23 ; Loose stools R19.5 and Type 2 diabetes mellitus without complication, without long-term current use of insulin E11.9 [facility] [address], [place] [address] Jun, [facility] [id number] [place] [address] Jun, Fibromyalgia M79.7 [facility] [id number] [place] [address] Jun, Breast mass, right N63.10 [address], [place] [address] Jun, Breast mass, right N63.10 [facility] [address] [place] [id number] Jun, Breast mass, right N63.10 ; Type 2 diabetes mellitus without complication , without long-term current use of insulin E11.9 and Fibromyalgia M79.7 [facility] [address] [place] [address] Jun, Gastroesophageal reflux disease without esophagitis K21.9 [facility] [id number] [address] Jun, Lumbar disc disease M51.9 [facility] [address], [place] [address] May, [facility] [id number] [address] May, [facility] [id number] [place] [id number] May, [facility] [id number] [id number] May, Lumbar disc disease M51.9 [facility] [address] [id number] [id number] Apr, [facility] [address] [place] [id number] Apr, Viral upper respiratory tract infection J06.9 and Impacted cerumen, bilateral H61.23 [facility] [address] [id number] [id number] Apr, [facility] [address], [place] [address] Apr, [facility] [id number] [id number] Apr, Lumbar disc disease M51.9 [facility] [address] [place] [id number] Mar, Lumbar disc disease M51.9 and Fibromyalgia M79.7 [facility] [id number], [place] [address] Mar, [facility] [id number] [id number] Feb, [facility] [id number] [address] Jan, Type 2 diabetes mellitus without complication, without long- term current use of insulin E11.9 [facility] [address] [place] [id number] Jan, Type 2 diabetes mellitus without complication, without long-term current use of insulin E11.9 ; Fibromyalgia M79.7 and Lumbar disc disease M51.9 [facility] [address] [id number], [place] [id number] Jan, [facility] [id number] [address] Jan, [facility] [id number], [place] [address] Dec, [facility] [address] [id number] [id number] Dec, [facility] [address] [id number] [id number] Dec, [facility] [address] [id number][place] [address] Nov, Pre-procedure lab exam Z01.812 [facility] [address] [facility] [id number] [address] Nov, Ventral hernia without obstruction or gangrene K43.9 [facility] [address] [id number], [place] [address] Nov, [facility] [address] [id number] [id number] Nov, [facility] [address] [place] [address] Nov, Ventral hernia without obstruction or gangrene K43.9 [facility] [address] [place] [id number] Nov, Fibromyalgia M79.7 and Polyneuropathy associated with underlying disease G63 [facility] [id number] [address] Oct, [facility] [place] [facility] [address] [id number], [place] [id number] Oct, [facility] [place] [facility] [address] [id number], [place] [address] Oct, [facility] [place] [facility] [address] [id number], [place] [id number] Oct, [facility] [place] [facility] [address] [id number], [place] [address] Sep, [facility] [address] [facility] [id number], [place] [address] Sep, [facility] [address] [facility] [id number], [place] [address] Sep, [facility] [address] [facility] [id number], [place] [address] August, [facility] [address] [place] [id number] August, Right medial knee pain M25.561 [facility] [place] [facility] [address] [id number] [place] [address] August, [facility] [place] [facility] [address] [id number] [place] [address] August, [facility] [place] [facility] [address] [id number] [place] [address] August, [facility] [place] [facility] [address] [id number] [place] [id number] August, [facility] [place] [facility] [address] [id number] [place] [address] August, [facility] [place] [facility] [address] [id number] [place] [id number] August, [facility] [place] [facility] [address] [id number], [place] [address] Jul, [facility] [place] [facility] [address] [id number] [place] [address] Jul, [facility] [place] [facility] [address] [id number], [place] [id number] Jul, [facility] [place] [facility] [address] [facility] [id number] [place] [address] Jun, [facility] [place] [facility] [address] [id number], [place] [address] Jun, [facility] [place] [facility] [address] [id number] [place] [address] May, [facility] [place] [facility] [address] [id number] [place] [address]- [address] May, [facility] [place] [facility] [address] [id number] [place] [address]- [address] May, [facility] [place] [facility] [address] [id number], [place] [address] May, [facility] [id number] [place] [address]- [address] Apr, [facility] [address] [place] [address] Apr, Upper respiratory infection with cough and congestion J06.9 [facility] [id number] [place] [id number] Apr, [facility] [id number] [place] [address]- 1703 Apr, [facility] [id number] [place] [address]161- 0225 Mar, [facility] [id number] [place] [address]- 4678 Mar, [facility] [id number] [place] [address]- 7316 Mar, Other chronic pain G89.29 [facility] [id number] [place] [address]61- 7518 Mar, [facility] [id number] [place] [address] 32643- 0400 Mar, [facility] [id number] [place] [address]14- 6230 Feb, [facility] [id number] [place] [address]28- [address]881 Feb, [facility] [address] [place] [address] Feb, Insomnia, unspecified type G47.00 and Swelling of face R22.0 [facility] [id number] [place] [address] 75885- 7906 Feb, [facility] [id number] [place] [address] 30745- 4295 14 Feb, 2016 [facility] [id number] [place] [address]36- 3483 07 Feb, 2016 [facility] [address], [place] [address] Feb, [facility] [address] [address] 24 Jan, 2016 [facility] [address], [place] [address] Jan, [facility] [id number] [place] [address]4088- 7419 14 Jan, 2016 Neurogenic bladder N31.9 [facility] [id number] [place] [address] 01814- 7449 10 Jan, 2016 [facility] [address], [place] [address]- [address] Jan, [facility] [id number] [place] [address] 01351- 1644 Jan, [facility] [address], [place] [address] Jan, [facility] [id number] [place] [address] 11725- 8074 Jan, Screening for breast cancer Z12.39 [facility] [address], [place] [address] Jan, [facility] [address], [place] [address] 27 Dec, 2015 Type 2 diabetes mellitus without complication, without long- term current use of insulin E11.9 ; Lumbar disc disease M51.9 ; Polyneuropathy associated with underlying disease G63 and Neurogenic bladder N31.9 [facility] [address], [place] [address]- [address] 16 Dec, 2015 [facility] [address], [place] [address]- 99[address] 14 Dec, 2015 Other chronic pain G89.29 [facility] [id number], [place] [address]- [address] Dec, [facility] [id number] [place] [address] 16693- 7460 Nov, [facility] [id number] [place] [address] 28177- 7378 Nov, [facility] [id number] [place] [address] 11478- 9621 Nov, Type 2 diabetes mellitus without complication, [...] anemia, unspecified iron deficiency anemia type D50.9 [facility] [id number] [place] [address] 75810- 1662 Nov, [facility] [id number] [place] [address] 75703- 7275 Nov, [facility] [id number] [place] [address] 61329- 9294 Nov, [facility] [address], [place] [address]- 9020 Nov, [facility] [id number] [place] [address] 17019- 3410 Nov, [facility] [id number] [place] [address] 90702- 3204 Nov, [facility] [id number] [place] [address] 48630- 7785 Nov, [facility] [address], [place] [address]- 4[address] 14 Jul, 2014 [facility] [id number] [place] [address] 79018- 2546 Jul, [facility] [address] [facility] [id number] [place] [address]- [address]46 August, [facility] [address] [facility] [id number], [place] [address]- 2546 Jun, [facility] [address] [facility] [id number] [place] [address]- 2546 Oct, IMMUNIZATIONS No Known Immunizations SOCIAL HISTORY Never Assessed REASON FOR VISIT c/o vaginal yeast infection PLAN OF CARE VITAL SIGNS MEDICATIONS Medication Instructions Dosage Frequency Start Date End Date Duration Status Diflucan 150 MG Orally today and may repeat in 3 days if symtoms persist 1 tablet Dec, Active RESULTS No Results PROCEDURES No Known [...]
--- OUTSIDE RECORDS SUMMARY | 2018-01-22 14:26 | XMS REPORT ---
Author Author LAURIE MAHAJAN Organization [facility] Address [address] [place] [address] Care Team Providers Care Assembler Seat Name Role Phone LAURIE MAHAJAN Unavailable PROBLEMS Type Condition ICD9-CM Code DEP53-SW Code Onset Dates Condition Status SNOMED Code Problem Lumbar disc disease M51.9 Active 15856634 Problem Neurogenic bladder N31.9 Active 068298859 Problem Polyneuropathy associated with underlying disease G63 Active 479392494 Problem Anxiety F41.9 Active 16291686 Problem Generalized anxiety disorder F41.1 Active 42312570 Problem Insomnia, unspecified type G47.00 Active 869871882 Problem Type 2 diabetes mellitus without complication, without long-term current use of insulin E11.9 Active 549354844 Problem Gastroesophageal reflux disease without esophagitis K21.9 Active 915196369 Problem Other chronic pain G89.29 Active 03951087 Problem Psychosis, unspecified psychosis type F29 Active 77725683 Problem Fibromyalgia M79.7 Active 687125582 Problem Nicotine abuse Z72.0 Active 67817875 Problem Irritable bowel syndrome with diarrhea K58.0 Active 406790887 Problem Chronic pain disorder G89.4 Active 881584159 Problem Meniere disease, unspecified laterality H81.09 Active 29690970 ALLERGIES No Information ENCOUNTERS Encounter Location Date Diagnosis [facility] [address] [facility] [id number], [place] [address] Nov, [facility] [address] [facility] [id number], [place] [address] Oct, Lumbar disc disease M51.9 [facility] [address] [facility] [id number], [place] [address] Oct, [facility] [address] [place] [id number] Oct, Polyneuropathy associated with underlying disease G63 ; Type 2 diabetes mellitus without complication, without long-term current use of insulin E11.9 and Family history of CVA Z82.3 [place] [address] [place] [id number] [place] [address] Sep, Lumbar disc disease M51.9 [place] [address] [id number] [place] [address] 77836- 9448 Sep, [place] [address] [id number] [place] [address] 89914- 3193 August, Lumbar disc disease M51.9 [place] [id number] [place] [address]- [address]13 August, [facility] [id number] August, Meniere''s disease, unspecified laterality H81.09 and Type 2 diabetes mellitus without complication, without long-term current use of insulin E11.9 [place] [address] [id number] [place] [address] 37720- 9182 August, BMI 40.0-44.9, adult Z68.41 and Anxiety F41.9 [place] [address] [id number] [place] [address] 51053- 2872 Jul, Lumbar disc disease M51.9 [place] [id number] [place] [address] 98705- 7592 Jul, Generalized anxiety disorder F41.1 [place] [id number] [place] [address] 50835- 6385 Jul, [place] [id number] [place] [address] 73967- 0819 Jul, Lumbar disc disease M51.9 [facility] [address] [place] [address] Jun, Urinary tract infection without hematuria, site unspecified N39.0 ; Bilateral impacted cerumen H61.23 ; Loose stools R19.5 and Type 2 diabetes mellitus without complication, without long-term current use of insulin E11.9 [place] [address] [address] Jun, [place] [address] [address] Jun, Fibromyalgia M79.7 [facility] [address], [place] [address] Jun, Breast mass, right N63.10 [place] [address] [place] [address] [id number] [address] Jun, Breast mass, right N63.10 [facility] [address] [place] [address] Jun, Breast mass, right N63.10 ; Type 2 diabetes mellitus without complication , without long-term current use of insulin E11.9 and Fibromyalgia M79.7 [place] [address], [place] [address] Jun, Gastroesophageal reflux disease without esophagitis K21.9 [place] [id number] [id number] Jun, Lumbar disc disease M51.9 [place] [address] [id number], [place] [address] May, [place] [id number] [address] May, [place] [id number] [address] May, [place] [id number] [address] May, Lumbar disc disease M51.9 [facility] [id number] [address] Apr, [facility] [address] [place] [id number] Apr, Viral upper respiratory tract infection J06.9 and Impacted cerumen, bilateral H61.23 [facility] [address] [id number] [id number] Apr, [facility] [address] [facility] [id number] [address] Apr, [facility] [id number] [address] Apr, [facility]bar disc disease M51.9 [facility] [address] [place] [id number] Mar, Lumbar disc disease M51.9 and Fibromyalgia M79.7 [facility] [address] [id number], [place] [address] Mar, [facility] [id number][place] [address] Feb, [facility] [address] [id number], [place] [address] Jan, Type 2 diabetes mellitus without complication, without long- term current use of insulin E11.9 [facility] [address] [place] [address] Jan, Type 2 diabetes mellitus without complication, without long-term current use of insulin E11.9 ; Fibromyalgia M79.7 and Lumbar disc disease M51.9 [facility] [id number] [address] Jan, [facility] [address] [place] [id number] [address] Jan, [facility] [address] [id number], [place] [address] Dec, [facility] [address] [place] [address] [id number] [address] Dec, [facility] [address] [place] [address] [id number] [address] Dec, [facility] [address] [id number][place] [address] Nov, Pre-procedure lab exam Z01.812 [facility] [address] [id number], [place] [address] Nov, Ventral hernia without obstruction or gangrene K43.9 [facility] [address] [id number][place] [address] Nov, [facility] [address] [id number][place] [address] Nov, [facility] [address] [place] [address] Nov, Ventral hernia without obstruction or gangrene K43.9 [facility] [address] [place] [address] Nov, Fibromyalgia M79.7 and Polyneuropathy associated with underlying disease G63 [facility] [address] [facility] [id number], [place] [address] Oct, [facility] [address] [id number][place] [address] Oct, [facility] [address] [id number][place] [address] Oct, [facility] [address] [id number], [place] [address] Oct, [facility] [address] [id number][place] [address] Sep, [facility] [address] [facility] [id number], [place] [address] Sep, [facility] [address] [facility] [id number], [place] [address]269 Sep, [facility] [address] [facility] [id number], [place] [address] August, [facility] [address] [place] [address] August, Right medial knee pain M25.561 [facility] [address] [facility] [id number], [place] [address] August, [facility] [place] [facility] [address] [id number] [place] [address] August, [facility] [place] [facility] [address] [id number] [place] [address]- [address]46 August, [facility] [place] [facility] [address] [id number] [place] [id number] August, [facility] [place] [facility] [address] [id number] [place] [address] August, [facility] [place] [facility] [address] [id number] [place] [id number] August, [facility] [place] [facility] [address] [id number] [place] [id number] Jul, [facility] [place] [facility] [address] [id number] [place] [address]- 2546 Jul, [facility] [place] [facility] [address] [id number][place] [address] Jul, [facility] [place] [facility] [address] [id number] [place] [address]- 2546 Jun, [facility] [place] [facility] [address] [id number] [place] [address]- 2546 Jun, [facility] [place] [facility] [address] [id number] [place] [address]- 2546 May, [facility] [place] [facility] [address] [id number], [place] [address]- 2546 May, [facility] [place] [facility] [address] [id number] [place] [address]- 2546 May, [facility] [place] [facility] [address] [id number] [place] [address]- 2546 May, [facility] [place] [facility] [address] [id number] [place] [address]- 2546 Apr, [facility] [address] [address] Apr, Upper respiratory infection with cough and congestion J06.9 [facility] [address] [id number] [place] [id number] Apr, [facility] [address] [place] [address] 44452- 0359 Apr, [facility] [address] [place] [address] 65979- 7813 Mar, [facility] [id number] [place] [address] 48745- 4878 Mar, [facility] [address] [place] [address] 24717- 5061 Mar, Other chronic pain G89.29 [facility] [id number] [place] [address] 70258- 3605 Mar, [facility] [id number] [place] [address] 26009- 5500 Mar, [facility] [address], [place] [address]- 9960 Feb, [facility] [address] [place] [address] 99410- 0117 Feb, [facility] [address] [address] Feb, Insomnia, unspecified type G47.00 and Swelling of face R22.0 [facility] [address], [place] [address] Feb, [facility] [address], [place] [address]- 136[address] 14 Feb, 2016 [facility] [address], [place] [address]- 9[address] 07 Feb, 2016 [facility] [address], [place] [address]- 7858 Feb, [facility] [address] [place] [address] 71560- 0012 Jan, [facility] [address] [place] [address] 79834- 4523 Jan, [facility] [id number] [place] [address] 29021- 9130 Jan, Neurogenic bladder N31.9 [facility] [id number] [place] [address] 22436- 6635 Jan, [facility] [id number] [place] [address] 81617- 8269 Jan, [facility] [id number] [place] [address] 23549- 7398 Jan, [facility] [id number] [place] [address] 04709- 0343 Jan, [facility] [id number] [place] [address] 21700- 5367 Jan, Screening for breast cancer Z12.39 [facility] [id number] [place] [address] 53939- 9295 Jan, [facility] [id number] [place] [address] 54639- 0252 27 Dec, 2015 Type 2 diabetes mellitus without complication, without long- term current use of insulin E11.9 ; Lumbar disc disease M51.9 ; Polyneuropathy associated with underlying disease G63 and Neurogenic bladder N31.9 [facility] [address] [place] [address] 41379- 9161 16 Dec, 2015 [facility] [address] [place] [address] 55570- 9382 14 Dec, 2015 Other chronic pain G89.29 [facility] [id number] [place] [address] 75945- 8183 12 Dec, 2015 [facility] [address] [place] [address] 14954- 5220 Nov, [facility] [address], [place] [address]- 1641 Nov, [facility] [id number] [place] [address] 63682- 1248 Nov, Type 2 diabetes mellitus without complication, [...] anemia, unspecified iron deficiency anemia type D50.9 [facility] [id number] [place] [address] 54167- 0559 Nov, [facility] [id number] [place] [address] 27490- 9211 Nov, [facility] [id number] [place] [address] 31447- 1673 Nov, [facility] [id number] [place] [address] 85487- 9792 Nov, [facility] [id number] [place] [address] 86226- 2320 Nov, [facility] [address], [place] [address]- 8846 Nov, [facility] [address], [place] [address]- 9979 Nov, [facility] [address], [place] [address]- 2672 Jul, [facility] [id number] [place] [address] 88294- 7678 Jul, [facility] [address], [place] [address]- 0623 August, [facility] [id number] [place] [address] [place] [address]- 4[address] Jun, [facility] [address] [facility] [id number] [place] [address]- 3436 Oct, IMMUNIZATIONS No Known Immunizations SOCIAL HISTORY Never Assessed REASON FOR VISIT Controlled Med Refill PLAN OF CARE VITAL SIGNS MEDICATIONS Medication Instructions Dosage Frequency Start Date End Date Duration Status Hydrocodone-Acetaminophen 7.5-325 MG Orally 2 times a day 1 tablet 12h August, 28 days Active RESULTS No Results [...]
--- OUTSIDE RECORDS SUMMARY | 2018-01-22 14:26 | XMS REPORT ---
Author Author LAURIE MAHAJAN Organization [facility] Address [address] [place] [address] Care Team Providers Care Casing Sewer Name Role Phone LAURIE MAHAJAN Unavailable PROBLEMS Type Condition ICD9-CM Code PGJ87-WU Code Onset Dates Condition Status SNOMED Code Problem Lumbar disc disease M51.9 Active 60073687 Problem Neurogenic bladder N31.9 Active 303131943 Problem Polyneuropathy associated with underlying disease G63 Active 573850909 Problem Anxiety F41.9 Active 48940020 Problem Generalized anxiety disorder F41.1 Active 28012149 Problem Insomnia, unspecified type G47.00 Active 176819087 Problem Type 2 diabetes mellitus without complication, without long-term current use of insulin E11.9 Active 212249120 Problem Gastroesophageal reflux disease without esophagitis K21.9 Active 069927728 Problem Other chronic pain G89.29 Active 32525478 Problem Psychosis, unspecified psychosis type F29 Active 85702014 Problem Fibromyalgia M79.7 Active 391205438 Problem Nicotine abuse Z72.0 Active 22568267 Problem Irritable bowel syndrome with diarrhea K58.0 Active 205520384 Problem Chronic pain disorder G89.4 Active 398233697 Problem Meniere disease, unspecified laterality H81.09 Active 93059625 ALLERGIES No Information ENCOUNTERS Encounter Location Date Diagnosis [facility] [id number], [place] [address] Nov, Lumbar disc disease M51.9 [facility] [id number] [place] [address] Nov, [facility] [id number] [place] [address] 979[address]- 7[address] Oct, Lumbar disc disease M51.9 [facility] [address], [place] [address] Oct, [facility] [address] [place] [id number] Oct, Polyneuropathy associated with underlying disease G63 ; Type 2 diabetes mellitus without complication, without long-term current use of insulin E11.9 and Family history of CVA Z82.3 [address], [place] [address] Sep, Lumbar disc disease M51.9 [address] [id number] [place] [address]39- 9284 Sep, [place] [id number] [place] [address] 58891- 0070 August, Lumbar disc disease M51.9 [address] [address] [place] [address] 92397- 4134 August, [facility] [place] [address] [place] [id number] August, Meniere''s disease, unspecified laterality H81.09 and Type 2 diabetes mellitus without complication, without long-term current use of insulin E11.9 [address] [address] [place] [address] 41998- 1742 August, BMI 40.0-44.9, adult Z68.41 and Anxiety F41.9 [address] [address] [place] [address] 71280- 4379 Jul, Lumbar disc disease M51.9 [address] [address] Jul, Generalized anxiety disorder F41.1 [address] [place] [address] 09995- 6787 Jul, [place] [id number] [place] [address] 81479- 4652 Jul, Lumbar disc disease M51.9 [facility] [address] [place] [id number] Jun, Urinary tract infection without hematuria, site unspecified N39.0 ; Bilateral impacted cerumen H61.23 ; Loose stools R19.5 and Type 2 diabetes mellitus without complication, without long-term current use of insulin E11.9 [facility] [address], [place] [address] Jun, [address] [place] [address] [address] Jun, Fibromyalgia M79.7 [address] [address] Jun, Breast mass, right N63.10 [address] [address] Jun, Breast mass, right N63.10 [facility] [address] [place] [phone] Jun, Breast mass, right N63.10 ; Type 2 diabetes mellitus without complication , without long-term current use of insulin E11.9 and Fibromyalgia M79.7 [address], [place] [address] Jun, Gastroesophageal reflux disease without esophagitis K21.9 [id number] [address] Jun, Lumbar disc disease M51.9 [address], [place] [address] May, [place] [id number] [id number] May, [place] [id number] [address] May, [place] [id number] [address] May, Lumbar disc disease M51.9 [place] [id number] [id number] Apr, [facility] [address] [place] [address] Apr, Viral upper respiratory tract infection J06.9 and Impacted cerumen, bilateral H61.23 [facility] [id number] [id number] Apr, [facility] [address], [place] [address] Apr, [facility] [id number] [place] [id number] Apr, Lumbar disc disease M51.[address] [facility] [address] [id number] Mar, Lumbar disc disease M51.9 and Fibromyalgia M79.7 [facility] [address] [address] Mar, [facility] [id number] [address] Feb, [facility] [address] [address] Jan, Type 2 diabetes mellitus without complication, without long- term current use of insulin E11.9 [facility] [id number] Jan, Type 2 diabetes mellitus without complication, without long-term current use of insulin E11.9 ; Fibromyalgia M79.7 and Lumbar disc disease M51.9 [facility] [id number] [address] Jan, [facility] [id number] [address] Jan, [facility] [address], [place] [address] Dec, [facility] [id number] [address] 15 Dec, 2016 [facility] [id number] [address] Dec, [facility] [address] [id number] [address] Nov, Pre-procedure lab exam Z01.812 [facility] [address] [facility] [id number], [place] [address] Nov, Ventral hernia without obstruction or gangrene K43.9 [facility] [address] [id number][place] [address] Nov, [facility] [address] [id number], [place] [id number] Nov, [facility] [address] [place] [address] Nov, Ventral hernia without obstruction or gangrene K43.9 [facility] [address] [place] [address] Nov, Fibromyalgia M79.7 and Polyneuropathy associated with underlying disease G63 [facility] [id number], [place] [address] Oct, [facility] [address] [id number][place] [address] Oct, [facility] [address] [id number], [place] [address] Oct, [facility] [place] [facility] [address] [id number], [place] [address] Oct, [facility] [address] [id number], [place] [address] Sep, [facility] [address] [facility] [id number], [place] [address] Sep, [facility] [address] [facility] [id number], [place] [address] Sep, [facility] [address] [facility] [id number], [place] [address] August, [facility] [address] [place] [address] August, Right medial knee pain M25.561 [facility] [place] [facility] [address] [id number] [place] [address] August, [facility] [place] [facility] [address] [id number], [place] [address] August, [facility] [place] [facility] [address] [facility] [id number] [place] [address]- [address] August, [facility] [place] [facility] [address] [id number], [place] [address] August, [facility] [place] [facility] [address] [id number] [place] [address] August, [facility] [place] [facility] [address] [id number], [place] [address] August, [facility] [place] [facility] [address] [id number], [place] [address] Jul, [facility] [place] [facility] [address] [facility] [id number], [place] [address] Jul, [facility] [place] [facility] [address] [id number], [place] [address] Jul, [facility] [place] [facility] [address] [facility] [id number], [place] [address]- [address] Jun, [facility] [place] [facility] [address] [facility] [id number], [place] [address]- [address] Jun, [facility] [place] [facility] [address] [id number], [place] [address]- [address]46 May, [facility] [place] [facility] [address] [id number] [place] [address]- 2546 May, [facility] [place] [facility] [address] [id number], [place] [address]- 2546 May, [facility] [place] [facility] [address] [facility] [id number][place] [address]- 2546 May, [facility] [place] [facility] [address], [place] [address] Apr, [facility] [address] [place] [address] Apr, Upper respiratory infection with cough and congestion J06.9 [facility] [id number] [place] [id number] 10 Apr, 2016 [facility] [address] [place] [address] 85319- 2446 Apr, [facility] [address], [place] [address]- [address] Mar, [facility] [id number] [place] [address] 77174- 9400 Mar, [facility] [address] [place] [address] 48446- 7280 Mar, Other chronic pain G89.29 [facility] [id number] [place] [address] 69690- 9620 Mar, [facility] [address], [place] [address]- 9042 Mar, [facility] [id number] [place] [address] 01487- 2376 Feb, [facility] [address], [place] [address]- [address] Feb, [facility] [address] [place] [address] Feb, Insomnia, unspecified type G47.00 and Swelling of face R22.0 [facility] [address], [place] [address]- [address] Feb, [facility] [address], [place] [address]- 365[address] 14 Feb, 2016 [facility] [address], [place] [address]- 7786 Feb, [facility] [address], [place] [address]- 3971 Feb, [facility] [address], [place] [address]- 5[address] 24 Jan, 2016 [facility] [address] [id number], [place] [address]- 79[address] Jan, [facility] [id number] [place] [address] 20688- 1418 14 Jan, 2016 Neurogenic bladder N31.9 [facility] [id number] [place] [address] 25152- 9682 10 Jan, 2016 [facility] [id number] [place] [address] 14199- 3421 Jan, [facility] [id number] [place] [address] 06632- 1974 Jan, [facility] [id number] [place] [address] 53851- 8740 Jan, [facility] [id number] [place] [address] 71129- 6145 Jan, Screening for breast cancer Z12.39 [facility] [id number] [place] [address] 77162- 7876 Jan, [facility] [address], [place] [address]- 7[address] 27 Dec, 2015 Type 2 diabetes mellitus without complication, without long- term current use of insulin E11.9 ; Lumbar disc disease M51.9 ; Polyneuropathy associated with underlying disease G63 and Neurogenic bladder N31.9 [facility] [address], [place] [address]- 1405 16 Dec, 2015 [facility] [id number] [place] [address] 54448- 4441 14 Dec, 2015 Other chronic pain G89.29 [facility] [id number] [place] [address] 74776- 4343 Dec, [facility] [address], [place] [address]- 4321 Nov, [facility] [id number] [place] [address] 33597- 4851 Nov, [facility] [address], [place] [address]- 8840 Nov, Type 2 diabetes mellitus without complication, [...] anemia type D50.9 [facility] [address], [place] [address]- 9328 Nov, [facility] [address], [place] [address]- 6655 Nov, [facility] [address], [place] [address]- 6285 Nov, [facility] [id number], [place] [address]- 2233 Nov, [facility] [address], [place] [address]- 3176 Nov, [facility] [address], [place] [address]- 2858 Nov, [facility] [address], [place] [address]- 4615 Nov, [facility] [address], [place] [address]- 1906 14 Jul, 2014 [facility] [address], [place] [address]- 3267 Jul, [facility] [id number] [address]- 2546 August, [facility] [address] [facility] [id number] [place] [address]- 1233 Jun, [facility] [address] [facility] [id number] [place] [address]- 6636 Oct, IMMUNIZATIONS No Known Immunizations SOCIAL HISTORY Never Assessed REASON FOR VISIT Controlled Med Refill PLAN OF CARE VITAL SIGNS MEDICATIONS Medication Instructions Dosage Frequency Start Date End Date Duration Status Hydrocodone-Acetaminophen 7.5-325 MG Orally 2 times a day 1 tablet 12h Sep, 28 days Active RESULTS No Results [...]
--- OUTSIDE RECORDS SUMMARY | 2018-01-22 14:27 | XMS REPORT ---
Author Author LAURIE MAHAJAN Organization [facility] Address [address] [place] [address] Care Team Providers Care Special Projects Coordinator Name Role Phone LAURIE MAHAJAN Unavailable PROBLEMS Type Condition ICD9-CM Code ABF62-SD Code Onset Dates Condition Status SNOMED Code Problem Psychosis, unspecified psychosis type F29 Active 14902473 Problem Polyneuropathy associated with underlying disease G63 Active 326459495 Problem Lumbar disc disease M51.9 Active 32282717 Problem Generalized anxiety disorder F41.1 Active 87087588 Problem Gastroesophageal reflux disease without esophagitis K21.9 Active 434368081 Problem Type 2 diabetes mellitus without complication, without long-term current use of insulin E11.9 Active 509463601 Problem Neurogenic bladder N31.9 Active 931513030 Problem Other chronic pain G89.29 Active 78038552 Problem Insomnia, unspecified type G47.00 Active 557089811 Problem Nicotine abuse Z72.0 Active 40354003 Problem Chronic pain disorder G89.4 Active 674335002 Problem Fibromyalgia M79.7 Active 285545214 Problem Meniere disease, unspecified laterality H81.09 Active 57458038 Problem Irritable bowel syndrome with diarrhea K58.0 Active 912933523 ALLERGIES No Information ENCOUNTERS Encounter Location Date Diagnosis [facility] [id number] [address] August, [facility] [id number] [address] Jul, Generalized anxiety disorder F41.1 [facility] [address] [address] Jul, [facility] [id number] [address] Jul, Lumbar disc disease M51.9 [facility] [address] [place] [id number] Jun, Urinary tract infection without hematuria, site unspecified N39.0 ; Bilateral impacted cerumen H61.23 ; Loose stools R19.5 and Type 2 diabetes mellitus without complication, without long-term current use of insulin E11.9 [facility] [address] [address] Jun, [facility] [id number] [place] [address] Jun, Fibromyalgia M79.7 [facility] [id number] [place] [address]- [address] Jun, Breast mass, right N63.10 [address] [address] Jun, Breast mass, right N63.10 [facility] [address] [place] [id number] Jun, Breast mass, right N63.10 ; Type 2 diabetes mellitus without complication , without long-term current use of insulin E11.9 and Fibromyalgia M79.7 [facility] [address] [place] [address] Jun, Gastroesophageal reflux disease without esophagitis K21.9 [facility] [id number] [place] [id number] Jun, Lumbar disc disease M51.9 [facility] [address] [address] May, [facility] [id number] [place] [id number] May, [facility] [id number] [place] [id number] May, [facility] [id number] [address] May, Lumbar disc disease M51.9 [facility] [id number] [address] Apr, [facility] [address] [place] [id number] Apr, Viral upper respiratory tract infection J06.9 and Impacted cerumen, bilateral H61.23 [facility] [address] [id number] [place] [id number] Apr, [facility] [address] [address] Apr, [facility] [id number] [place] [address] Apr, Lumbar disc disease M51.9 [facility] [place] [address] [place] [id number] Mar, Lumbar disc disease M51.9 and Fibromyalgia M79.7 [facility] [id number] [address] Mar, [facility] [id number] [place] [id number] Feb, [facility] [id number] [address] Jan, Type 2 diabetes mellitus without complication, without long- term current use of insulin E11.9 [facility] [address] [place] [id number] Jan, Type 2 diabetes mellitus without complication, without long-term current use of insulin E11.9 ; Fibromyalgia M79.7 and Lumbar disc disease M51.9 [facility] [address] [id number] [place] [id number] Jan, [facility] [id number] [place] [address] Jan, [facility] [id number] [address] Dec, [facility] [address] [id number] [place] [address] Dec, [facility] [address] [id number] [place] [id number] Dec, [facility] [address] [id number] [place] [id number] Nov, Pre-procedure lab exam Z01.812 [facility] [address] [facility] [id number] [place] [address] Nov, Ventral hernia without obstruction or gangrene K43.9 [facility] [address] [id number] [place] [id number] Nov, [facility] [address] [id number] [place] [id number] Nov, [facility] [address] [place] [address] Nov, Ventral hernia without obstruction or gangrene K43.9 [facility] [address] [place] [address] Nov, Fibromyalgia M79.7 and Polyneuropathy associated with underlying disease G63 [facility] [id number] [address] Oct, [facility] [place] [facility] [address] [id number] [place] [id number] Oct, [facility] [place] [facility] [address] [id number] [place] [address] Oct, [facility] [place] [facility] [address] [id number] [place] [address] Oct, [facility] [place] [facility] [address] [id number] [place] [address] Sep, [facility] [address] [facility] [id number] [place] [address] Sep, [facility] [address] [facility] [id number] [place] [address] Sep, [facility] [address] [facility] [id number] [place] [address] August, [facility] [address] [place] [address] August, Right medial knee pain M25.561 [facility] [place] [facility] [address] [id number] [place] [address] August, [facility] [place] [facility] [address] [id number] [place] [address] August, [facility] [place] [facility] [address] [id number] [place] [address] August, [facility] [place] [facility] [address] [id number] [place] [id number] August, [facility] [place] [facility] [address] [id number] [place] [address] August, [facility] [place] [facility] [address] [id number] [place] [id number] August, [facility] [place] [facility] [address] [id number] [place] [address] Jul, [facility] [place] [facility] [address] [id number] [place] [address] Jul, [facility] [place] [facility] [address] [id number] [place] [address] Jul, [facility] [place] [facility] [address] [facility] [id number] [place] [address] Jun, [facility] [place] [facility] [address] [id number] [place] [address] Jun, [facility] [place] [facility] [address] [id number] [place] [address] May, [facility] [place] [facility] [address] [id number] [place] [address]- [address] May, [facility] [place] [facility] [address] [id number] [place] [address]- [address] May, [facility] [place] [facility] [address] [id number] [place] [address] May, [facility] [id number] [place] [address] Apr, [facility] [address] [place] [id number] Apr, Upper respiratory infection with cough and congestion J06.9 [facility] [id number] [place] [id number] Apr, [facility] [id number] [place] [address]- [address] Apr, [facility] [id number] [place] [address]- [address] Mar, [facility] [id number] [place] [address]- 5157 Mar, [facility] [id number] [place] [address]07- 6676 Mar, Other chronic pain G89.29 [facility] [id number] [place] [address]- [address] Mar, [facility] [id number] [place] [address] 7[address]36- 4370 Mar, [facility] [id number] [place] [address]- 5435 Feb, [facility] [id number] [place] [address]- 4261 Feb, [facility] [address] [address] Feb, Insomnia, unspecified type G47.00 and Swelling of face R22.0 [facility] [id number] [place] [address]27- 7703 Feb, [facility] [address] [place] [address] 26912- 6196 14 Feb, 2016 [facility] [id number] [place] [address] 07521- 9704 07 Feb, 2016 [facility] [address] [address] Feb, [facility] [address] [address] 24 Jan, 2016 [facility] [address] [address] Jan, [facility] [id number] [place] [address] 25256- 7600 14 Jan, 2016 Neurogenic bladder N31.9 [facility] [id number] [place] [address]98- 5660 10 Jan, 2016 [facility] [address] [address]- [address] Jan, [facility] [id number] [place] [address]- 6211 Jan, [facility] [address] [address]- [address] Jan, [facility] [id number] [place] [address]- 7344 Jan, Screening for breast cancer Z12.39 [facility] [address] [address] Jan, [facility] [address] [address] 27 Dec, 2015 Type 2 diabetes mellitus without complication, without long- term current use of insulin E11.9 ; Lumbar disc disease M51.9 ; Polyneuropathy associated with underlying disease G63 and Neurogenic bladder N31.9 [facility] [address] [address]- [address] 16 Dec, 2015 [facility] [address] [address]- [address] 14 Dec, 2015 Other chronic pain G89.29 [facility] [id number] [address]- [address] Dec, [facility] [id number] [place] [address] 27079- 4725 Nov, [facility] [id number] [place] [address] 87203- 5782 Nov, [facility] [id number] [place] [address] 77548- 1031 Nov, Type 2 diabetes mellitus without complication, [...] type D50.9 [facility] [address] [place] [address] 34502- 0134 Nov, [facility] [id number] [place] [address] 18662- 2272 Nov, [facility] [address] [place] [address] 11100- 8199 Nov, [facility] [address] [address]- [address] Nov, [facility] [id number] [place] [address] 05067- 6912 Nov, [facility] [id number] [place] [address] 36235- 3604 Nov, [facility] [id number] [place] [address] 10152- 5228 Nov, [facility] [address] [address]- [address] 14 Jul, 2014 [facility] [id number] [place] [address] 01010- 2546 Jul, [facility] [address] [facility] [id number] [place] [address]- [address] August, [facility] [address] [facility] [id number] [place] [address]- [address] Jun, [facility] [address] [facility] [id number] [place] [address]- [address] Oct, IMMUNIZATIONS No Known Immunizations SOCIAL HISTORY Never Assessed REASON FOR VISIT UTI treatment PLAN OF CARE VITAL SIGNS MEDICATIONS Medication Instructions Dosage Frequency Start Date End Date Duration Status Bactrim DS 800-160 MG Orally 2 times a day 1 tablet Dec, Dec, 07 days Active Acidophilus Lactobacillus - Orally 2 times a day 1 capsule Dec, Dec, 07 days Active Macrobid 100 mg Orally every 12 hrs 1 capsule with food Dec, Dec, 7 day(s) Active RESULTS No Results PROCEDURES No [...]
--- OUTSIDE RECORDS SUMMARY | 2018-01-22 14:27 | XMS REPORT ---
Author Author ELAN DUMONT [facility] Address [address] [place] [address] Care Team Providers Care Loom Fixer Helper Name Role Phone ELAN DUMONT Unavailable PROBLEMS Type Condition ICD9-CM Code VTP00-NI Code Onset Dates Condition Status SNOMED Code Problem Irritable bowel syndrome with diarrhea K58.0 Active 097688000 Problem Lumbar disc disease M51.9 Active 04467900 Problem Psychosis, unspecified psychosis type F29 Active 68298751 Problem Meniere disease, unspecified laterality H81.09 Active 16313512 Problem Nicotine abuse Z72.0 Active 36267789 Problem Chronic pain disorder G89.4 Active 980068548 Problem Fibromyalgia M79.7 Active 335581676 Problem Gastroesophageal reflux disease without esophagitis K21.9 Active 636750177 Problem Other chronic pain G89.29 Active 18452267 Problem Neurogenic bladder N31.9 Active 479527221 Problem Polyneuropathy associated with underlying disease G63 Active 997298537 Problem Insomnia, unspecified type G47.00 Active 920353519 Problem Type 2 diabetes mellitus without complication, without long-term current use of insulin E11.9 Active 657031436 ALLERGIES No Information ENCOUNTERS Encounter Location Date Diagnosis [place] [id number] [place] [address] 87887- 7428 23 Jun, 2017 [facility] [address] [id number] [place] [address] 52352- 1332 15 Jun, 2017 Fibromyalgia M79.7 [place] [address] [place] [address] 77610- 8891 12 Jun, 2017 Breast mass, right N63.10 [place] [address] [place] [address] [id number] [address] 6[address] 09 Jun, 2017 Breast mass, right N63.10 [facility] [address] [place] [id number] Jun, Breast mass, right N63.10 ; Type 2 diabetes mellitus without complication , without long-term current use of insulin E11.9 and Fibromyalgia M79.7 [facility] [address] [address] Jun, Gastroesophageal reflux disease without esophagitis K21.9 [facility] [id number] [place] [address] [id number] Jun, Lumbar disc disease M51.9 [facility] [address] [place] [address] 767589- 1954 May, [facility] [id number] [place] [address] [id number] May, [facility] [id number] [place] [address] [id number] May, [facility] [id number] [place] [address] [id number] May, Lumbar disc disease M51.9 [facility] [id number] [place] [address] [id number] Apr, [facility] [address] [place] [id number] Apr, Viral upper respiratory tract infection J06.9 and Impacted cerumen, bilateral H61.23 [facility] [id number] [place] [address] [id number] Apr, [facility] [address] [place] [address] 00978- 3600 Apr, [facility] [id number] [place] [address] [id number] Apr, Lumbar disc disease M51.[address] [id number] Mar, Lumbar disc disease M51.9 and Fibromyalgia M79.7 [facility] [address] [place] [address] 565984- 9912 Mar, [facility] [id number] [id number] Feb, [facility] [address], [place] [address] 2546 Jan, Type 2 diabetes mellitus without complication, without long- term current use of insulin E11.9 [facility] [address] [place] [id number] Jan, Type 2 diabetes mellitus without complication, without long-term current use of insulin E11.9 ; Fibromyalgia M79.7 and Lumbar disc disease M51.9 [facility] [id number] [id number] Jan, [facility] [address] [id number] [id number] Jan, [facility] [id number] [address] 2546 Dec, [facility] [id number] [id number] Dec, [facility] [id number][place] [id number] Dec, [facility] [id number][place] [id number] Nov, Pre-procedure lab exam Z01.812 [facility] [address] [address] [id number] [address] 2546 Nov, Ventral hernia without obstruction or gangrene K43.9 [facility] [address] [id number] [id number] Nov, [facility] [id number], [place] [id number] Nov, [facility] [address] [place] [id number] Nov, Ventral hernia without obstruction or gangrene K43.9 [facility] [address] [place] [id number] Nov, Fibromyalgia M79.7 and Polyneuropathy associated with underlying disease G63 [facility] [address] [facility] [id number], [place] [address] Oct, [facility] [address] [id number] [id number] Oct, [facility] [address] [place] [address] [id number] [id number] Oct, [facility] [address] [id number][place] [id number] Oct, [facility] [address] [place] [id number] [id number] Sep, [facility] [id number], [place] [address] 2546 Sep, [facility] [id number], [place] [address] 2546 Sep, [facility] [id number], [place] [address] 2546 August, [facility] [address] [place] [id number] August, Right medial knee pain M25.561 [facility] [address] [id number] [address] 2546 August, [facility] [id number], [place] [address]- 0466 August, [facility] [id number], [place] [address]- 2546 August, [facility] [address] [id number][place] [id number] August, [facility] [address] [facility] [id number], [place] [address] 2546 August, [facility] [address] [place] [id number] [id number] August, [facility] [address] [id number] [id number] Jul, [facility] [id number] [place] [address] 2546 Jul, [facility] [address] [place] [id number] [id number] Jul, [facility] [id number] [place] [address] 2546 Jun, [facility] [address] [facility] [id number] [place] [address]- 2546 Jun, [facility] [id number] [place] [address]- 6136 May, [facility] [id number] [place] [address]- 2546 May, [facility] [address] [place] [address] 2546 May, [facility] [address] [id number], [place] [address]- 2546 May, [facility] [id number], [place] [address]- 5746 Apr, [facility] [address] [place] [id number] Apr, Upper respiratory infection with cough and congestion J06.9 [facility] [id number][place] [id number] Apr, [facility] [id number], [place] [address]- 2546 Apr, [facility] [id number], [place] [address] 2546 Mar, [facility] [id number] [place] [address]- 2546 Mar, [facility] [id number] [address]- 5010 Mar, Other chronic pain G89.29 [facility] [address]00565100[place], [place] [address]- 6738 Mar, [facility] [address]65100[place] [address] 0844 05 Mar, 2016 [facility] [address]65100[place], [place] [address]- 3960 Feb, [facility] [address] [place] [address] 58029- 4949 Feb, [facility] [address] [place] [id number] Feb, Insomnia, unspecified type G47.00 and Swelling of face R22.0 [facility] [address], [place] [address]- 5224 Feb, [facility] [address] [id number] [place] [address] 09848- 0857 Feb, [facility] [address] [id number], [place] [address]- 8857 07 Feb, 2016 [facility] [id number] [place] [address] 52624- 6420 Feb, [facility] [address]100[place], [place] [address]- 6648 24 Jan, 2016 [facility] [id number] [place] [address] 50774- 4673 17 Jan, 2016 [facility] [address]00565100[place], [place] [address]- 4500 14 Jan, 2016 Neurogenic bladder N31.9 [facility] [id number] [place] [address] 92414- 1613 10 Jan, 2016 [facility] [address]00565100[place], [place] [address]- 4949 07 Jan, 2016 [facility] [id number] [place] [address] 50244- 4602 Jan, [place] [id number] [place] [address] 06163- 6008 Jan, [place] [address] [place] [id number] [place] [address] 29719- 2061 Jan, Screening for breast cancer Z12.39 [place] [address] [place] [address] [id number] [place] [address] 68641- 9680 Jan, [place] [address] [place] [id number] [place] [address] 08988- 6450 Dec, Type 2 diabetes mellitus without complication, without long- term current use of insulin E11.9 ; Lumbar disc disease M51.9 ; Polyneuropathy associated with underlying disease G63 and Neurogenic bladder N31.9 [place] [address] [id number] [place] [address] 04803- 5192 16 Dec, 2015 [place] [address] [place] [id number] [place] [address] 13248- 4279 14 Dec, 2015 Other chronic pain G89.29 [place] [address] [id number] [place] [address] 02952- 5285 Dec, [place] [address] [place] [id number] [place] [address] 90282- 0190 Nov, [place] [address] [place] [id number] [place] [address] 88599- 5079 Nov, [place] [address] [place] [id number] [place] [address] 08058- 0305 Nov, Type 2 diabetes mellitus without complication, [...] anemia, unspecified iron deficiency anemia type D50.9 [place] [address], [place] [address]- 4178 Nov, [facility] [address], [place] [address]- 2327 Nov, [facility] [address], [place] [address]- 5057 Nov, [facility] [address], [place] [address]- 2739 Nov, [facility] [address], [place] [address]- 3994 Nov, [facility] [address] [place] [address] 95353- 1454 Nov, [facility] [address], [place] [address]- 8358 Nov, [facility] [address] [place] [address] 78795- 1532 Jul, [facility] [address]100[place], [place] [address]- 9822 Jul, [facility] [address], [place] [address]- 3113 August, [facility] [address], [place] [address]- 1935 Jun, [facility] [address], [place] [address]- 0833 Oct, IMMUNIZATIONS No Known Immunizations SOCIAL HISTORY Never Assessed REASON FOR VISIT Controlled Med Refill PLAN OF CARE VITAL SIGNS MEDICATIONS Medication Instructions Dosage Frequency Start Date End Date Duration Status Lyrica 225 MG Orally 2 times a day 1 capsule 12h 30 Active RESULTS No Results PROCEDURES No Known [...]
[2018-01-22] MEDS ORDERED: NS 250 ML (IVPB) BAG IV ONE (14:30)
[2018-01-22] MEDS ORDERED: IOHEXOL 350 MG/ML 100 ML (OMNIPAQUE 350) VIAL IV ONE (14:30)
[2018-01-22 14:35] LABS: BASOPHILS % (AUTO) 0 % (0-10); EOSINOPHILS # (AUTO) 0.1 10^3/uL (0.0-0.3); EOSINOPHILS % (AUTO) 1 % (0-10); HEMATOCRIT 40 % (35-52); HEMOGLOBIN 13.7 G/DL (11.5-16.0); LYMPHOCYTES # (AUTO) 5.2 X 10^3 (1.0-4.0); LYMPHOCYTES % (AUTO) 30 % (12-44); MEAN CORPUSCULAR HEMOGLOBIN 30 PG (25-34); MEAN CORPUSCULAR HGB CONC 34 G/DL (32-36); MEAN CORPUSCULAR VOLUME 88 FL (80-99); MONOCYTES # (AUTO) 1.5 X 10^3 (0.0-1.0); MONOCYTES % (AUTO) 9 % (0-12); NEUTROPHILS # (AUTO) 10.1 X 10^3 (1.8-7.8); NEUTROPHILS % (AUTO) 60 % (42-75); PLATELET COUNT 605 10^3/uL (130-400); RED BLOOD COUNT 4.55 10^6/uL (4.35-5.85); RED CELL DISTRIBUTION WIDTH 12.8 % (10.0-14.5); WHITE BLOOD COUNT 16.9 10^3/uL (4.3-11.0)
--- OUTSIDE RECORDS SUMMARY | 2018-01-22 14:36 | XMS REPORT | Continuity of Care Document ---
Author Author [facility] Address Unknown Phone Unavailable Allergies Active Description Code Type Severity Reaction Onset Reported/Identified Relationship to Patient Clinical Status Yes Penicillins Drug Allergy N/A N/A 10/28/2011 Yes Sulfa(Sulfonamide Antibiotics) Drug Allergy N/A N/A 10/28/2011 Yes Penicillins Drug Allergy 10/28/2011 Yes Sulfa(Sulfonamide Antibiotics) Drug Allergy 10/28/2011 Yes Penicillins [id number] Drug Allergy Unknown N/A 12/07/2013 Yes Sulfa (Sulfonamide Antibiotics) [id number] Drug Allergy Unknown N/A 2013 Yes Penicillins 476 Drug Allergy N/ A N/A 03/04/2016 Confirmed or Verified Yes Sulfa (Sulfonamide Antibiotics) 491 Drug Allergy N/A N/A 03/04/2016 Confirmed or Verified Yes cephalexin [id number] Drug Allergy Mild RASH 06/30/2017 Medications There is no data. Problems Date Dx Coded Attending Type Code Diagnosis Diagnosed By 09/10/2009 Ot 300.00 09/10/2009 Ot 595.9 09/10/2009 Ot 625.9 09/17/2009 Ot 300.00 09/17/2009 Ot 729.1 09/17/2009 Ot 787.02 10/24/2009 Ot 455.9 10/24/2009 Ot 569.3 10/24/2009 Ot 783.21 10/24/2009 Ot V16.0 11/29/2009 Ot 595.9 11/29/2009 Ot 789.00 01/04/2010 Ot 784.0 02/07/2010 Ot 709.8 03/15/2010 Ot 595.9 03/15/2010 Ot 788.1 03/19/2010 Ot 782.1 03/19/2010 Ot 995.1 03/19/2010 Ot E931.0 04/14/2010 Ot 250.60 04/14/2010 Ot 357.2 04/14/2010 Ot 595.1 04/14/2010 Ot 729.1 04/14/2010 Ot 812.21 04/14/2010 Ot E000.8 04/14/2010 Ot E849.0 04/14/2010 Ot E885.9 04/14/2010 Ot V58.69 05/16/2010 Ot 250.60 05/16/2010 Ot 278.00 05/16/2010 Ot 357.2 05/16/2010 Ot 386.00 05/16/2010 Ot 812.21 05/16/2010 Ot E000.8 05/16/2010 Ot E849.0 05/16/2010 Ot E888.9 05/16/2010 Ot V85.41 06/05/2010 Ot 923.11 06/05/2010 Ot 959.3 06/05/2010 Ot E000.8 06/05/2010 Ot E849.0 06/05/2010 Ot E888.9 06/26/2010 Ot 814.01 06/26/2010 Ot 959.4 06/26/2010 Ot E000.8 06/26/2010 Ot E849.0 06/26/2010 Ot E888.9 09/30/2010 Ot 923.11 09/30/2010 Ot 923.21 09/30/2010 Ot 959.3 09/30/2010 Ot E000.8 09/30/2010 Ot E849.0 09/30/2010 Ot E888.9 10/26/2010 Ot 923.11 10/26/2010 Ot 923.21 10/26/2010 Ot 959.3 10/26/2010 Ot E000.8 10/26/2010 Ot E849.0 10/26/2010 Ot E888.9 12/01/2010 Ot 401.9 12/01/2010 Ot 599.0 12/01/2010 Ot 780.4 12/01/2010 Ot 790.29 03/07/2011 Ot 729.5 03/07/2011 Ot 780.09 03/27/2011 Ot 490 03/27/2011 Ot 719.41 03/27/2011 Ot 959.2 03/27/2011 Ot E000.8 03/27/2011 Ot E849.0 03/27/2011 Ot E888.9 04/30/2011 Ot 959.2 04/30/2011 Ot E000.8 04/30/2011 Ot E849.7 04/30/2011 Ot E884.4 06/26/2011 Ot 599.0 URIN TRACT INFECTION NOS 06/26/2011 Ot 788.1 DYSURIA 07/30/2011 Ot 564.00 UNSPEC CONSTIPATION 07/30/2011 Ot 596.89 OTHER SPECIFIED DISORDERS OF BLADDER 07/30/2011 Ot 788.1 DYSURIA 07/30/2011 Ot V13.02 PERSONAL HISTORY, URINARY (TRACT) INFECT 08/05/2011 Ot 599.0 URIN TRACT INFECTION NOS 08/05/2011 Ot 788.1 DYSURIA 09/16/2011 Ot 346.90 MIGRAINE UNSPECIFIED W/O INTRACT MGRN W/ 09/16/2011 Ot 784.0 HEADACHE 10/02/2011 Ot 599.0 URIN TRACT INFECTION NOS 10/02/2011 Ot 923.10 CONTUSION OF FOREARM 10/02/2011 Ot 959.3 ELB/FOREARM/ WRST INJ NOS 10/02/2011 Ot E000.8 OTHER EXTERNAL CAUSE STATUS 10/02/2011 Ot E849.0 ACCIDENT IN HOME 10/02/2011 Ot E888.9 FALL NOS 10/28/2011 719.47 FOOT PAIN 10/28/2011 719.47 FOOT PAIN 11/02/2011 Ot 346.90 MIGRAINE UNSPECIFIED W/O INTRACT MGRN W/ 11/02/2011 Ot 599.0 URIN TRACT INFECTION NOS 11/02/2011 Ot 788.1 DYSURIA 11/19/2011 Ot 599.0 URIN TRACT INFECTION NOS 11/19/2011 Ot 788.1 DYSURIA 01/16/2012 Ot 599.0 URIN TRACT INFECTION NOS 01/16/2012 Ot 724.5 BACKACHE NOS 01/16/2012 Ot 788.1 DYSURIA 03/07/2012 Ot 346.90 MIGRAINE UNSPECIFIED W/O INTRACT MGRN W/ 03/07/2012 Ot 599.0 URIN TRACT INFECTION NOS 03/07/2012 Ot 788.1 DYSURIA 04/11/2012 Ot V57.1 PHYSICAL THERAPY NEC 04/11/2012 Ot V58.43 AFTERCARE POST SURGERY INJURY/TRAUMA 04/14/2012 Ot 466.0 ACUTE BRONCHITIS 04/14/2012 Ot 786.2 COUGH 04/28/2012 Ot V57.1 PHYSICAL THERAPY NEC 04/28/2012 Ot V58.43 AFTERCARE POST SURGERY INJURY/TRAUMA 06/07/2012 Ot 346.90 MIGRAINE UNSPECIFIED W/O INTRACT MGRN W/ 06/07/2012 Ot 599.0 URIN TRACT INFECTION NOS 06/07/2012 Ot 788.99 OTHER SYMPTOMS INVOLVING URINARY SYSTEM 06/10/2012 735.2 HALLUX RIGIDUS 06/10/2012 735.2 HALLUX RIGIDUS 07/14/2012 Ot 346.90 MIGRAINE UNSPECIFIED W/O INTRACT MGRN W/ 08/01/2012 LANA KIRKPATRICK, ARMANDO Chairez Ot 466.0 ACUTE BRONCHITIS 08/01/2012 ARMANDO SCHWARTZ MD Ot 786.05 SHORTNESS OF BREATH 08/15/2012 SUNG DPM, DEMARCUS Q Ot 735.2 HALLUX RIGIDUS 09/01/2012 NABIL ANDERSON MD Ot 599.0 URIN TRACT INFECTION NOS 09/01/2012 NABIL ANDERSON MD Ot 788.1 DYSURIA 09/21/2012 NABIL ANDERSON MD Ot 346.90 MIGRAINE UNSPECIFIED W/O INTRACT MGRN W/ 09/21/2012 NABIL ANDERSON MD Ot 599.0 URIN TRACT INFECTION NOS 09/21/2012 NABIL ANDERSON MD Ot 788.1 DYSURIA 12/30/2012 ABAD RODRIGUEZ MD Ot 599.0 URIN TRACT INFECTION NOS 12/30/2012 ABAD RODRIGUEZ MD Ot 788.1 DYSURIA 01/01/2013 NABIL ANDERSON MD Ot 599.0 URIN TRACT INFECTION NOS 01/01/2013 NABIL ANDERSON MD Ot 789.00 ABDOMINAL PAIN, UNSPECIFIED SITE 12/07/2013 ABAD RODRIGUEZ MD Ot 599.0 URIN TRACT INFECTION NOS 12/07/2013 ABAD RODRIGUEZ MD Ot 625.9 FEM GENITAL SYMPTOMS NOS 07/30/2014 FRANCISCO CORRALES CERTIFIED LEGAL SECRETARY SPECIALIST Ot 723.1 CERVICALGIA 07/30/2014 FRANCISCO CORRALES CERTIFIED LEGAL SECRETARY SPECIALIST Ot 826.0 FX PHALANX, FOOT-CLOSED 07/30/2014 FRANCISCO CORRALES CERTIFIED LEGAL SECRETARY SPECIALIST Ot E000.8 OTHER EXTERNAL CAUSE STATUS 07/30/2014 FRANCISCO CORRALES CERTIFIED LEGAL SECRETARY SPECIALIST Ot E849.0 ACCIDENT IN HOME 07/30/2014 FRANCISCO CORRALES CERTIFIED LEGAL SECRETARY SPECIALIST Ot E885.9 FALL FROM SLIPPING, TRIPPING, OR STUMBLI 09/13/2014 CAMILLE JARRELL DO Reny Ot 599.0 URIN TRACT INFECTION NOS 09/13/2014 CHRYSTAL BRITT CAMILLE Reny Ot 724.2 LUMBAGO 09/14/2014 Ot V76.12 09/14/2014 Ot 611.72 09/14/2014 Ot 729.5 09/14/2014 Ot 733.82 09/14/2014 Ot 905.2 09/14/2014 Ot 996.49 09/14/2014 Ot E929.3 09/14/2014 SUNG DPM, DEMARCUS Q Ot 735.2 09/14/2014 SUNG DPM, DEMARCUS Q Ot V72.63 09/14/2014 ABAD RODRIGUEZ MD Ot 788.1 09/14/2014 ALECIA KIRKPATRICK, MODESTO Herrera Ot 571.8 09/14/2014 ALECIA KIRKPATRICK, MODESTO S Ot 599.0 09/14/2014 ALECIA KIRKPATRICK, MODESTO S Ot 788.30 09/14/2014 ABAD RODRIGUEZ MD Ot 272.4 09/14/2014 ABAD RODRIGUEZ MD Ot 401.9 09/14/2014 ABAD RODRIGUEZ MD Ot V76.12 09/18/2014 CHRISSY WYATT MD Ot 724.2 LUMBAGO 09/18/2014 CHRISSY WYATT MD Ot 724.4 LUMBOSACRAL NEURITIS NOS 10/05/2014 SHERI PATTERSON Ot 720.2 SACROILIITIS NEC 10/05/2014 SHERI PATTERSON Ot 724.2 LUMBAGO 10/12/2014 ABAD RODRIGUEZ MD Ot 724.2 10/12/2014 ABAD RODRIGUEZ MD Ot V57.1 10/15/2014 ABAD RODRIGUEZ MD Ot 724.2 10/15/2014 ABAD RODRIGUEZ MD Ot V57.1 10/15/2014 ABAD RODRIGUEZ MD Ot 724.2 10/15/2014 ABAD RODRIGUEZ MD Ot V57.1 10/15/2014 MICHAEL KIRKPATRICK, ABAD Rain Ot 724.2 10/15/2014 MICHAEL KIRKPATRICK, ABAD Rain Ot V57.1 10/19/2014 FRANCISCO CORRALES CERTIFIED LEGAL SECRETARY SPECIALIST Ot 923.00 CONTUSION SHOULDER REG 10/19/2014 FRANCISCO CORRALES CERTIFIED LEGAL SECRETARY SPECIALIST Ot 959.2 SHLDR/UPPER ARM INJ NOS 10/19/2014 FRANCISCO CORRALES CERTIFIED LEGAL SECRETARY SPECIALIST Ot E000.8 OTHER EXTERNAL CAUSE STATUS 10/19/2014 FRANCISCO CORRALES CERTIFIED LEGAL SECRETARY SPECIALIST Ot E849.0 ACCIDENT IN HOME 10/19/2014 FRANCISCO CORRALES CERTIFIED LEGAL SECRETARY SPECIALIST Ot E888.1 FALL STRIKING OBJECT NEC 10/23/2014 SHERI PATTERSON Ot 720.2 10/23/2014 SHERI PATTERSON Ot 724.2 11/06/2014 ABAD RODRIGUEZ MD Ot 724.2 11/06/2014 ABAD RODRIGUEZ MD Ot V57.1 11/06/2014 ABAD RODRIGUEZ MD Ot 724.2 11/06/2014 ABAD RODRIGUEZ MD Ot V57.1 11/06/2014 MICHAEL KIRKPATRICK, ABAD Rain Ot 724.2 11/06/2014 ABAD RODRIGUEZ MD Ot V57.1 11/09/2014 ABAD RODRIGUEZ MD Ot 724.2 11/09/2014 ABAD RODRIGUEZ MD Ot V57.1 11/16/2014 ABAD RODRIGUEZ MD Ot 724.2 11/16/2014 ABAD RODRIGUEZ MD Ot V57.1 11/29/2014 ABAD RODRIGUEZ MD Ot 724.2 LUMBAGO 11/29/2014 ABAD RODRIGUEZ MD Ot V57.1 PHYSICAL THERAPY NEC 01/04/2015 ABAD RODRIGUEZ MD Ot V76.12 01/15/2015 ABAD RODRIGUEZ MD Ot V76.12 03/15/2015 OTHER, UNLISTED Ot M51.37 03/15/2015 OTHER, UNLISTED Ot M79.604 03/15/2015 OTHER, UNLISTED Ot M79.605 03/27/2015 OTHER, UNLISTED Ot M51.37 03/27/2015 OTHER, UNLISTED Ot M79.604 03/27/2015 OTHER, UNLISTED Ot M79.605 04/04/2015 ABAD RODRIGUEZ MD Ot N30.20 OTHER CHRONIC CYSTITIS WITHOUT HEMATURIA 04/04/2015 ABAD RODRIGUEZ MD Ot R19.7 DIARRHEA, UNSPECIFIED 07/19/2015 CHRISSY WYATT MD Ot F17.210 NICOTINE DEPENDENCE, CIGARETTES, UNCOMPL 07/19/2015 CHRISSY WYATT MD Ot N39.0 URINARY TRACT INFECTION, SITE NOT SPECIF 07/19/2015 CHRISSY WYATT MD, Ot R42 DIZZINESS AND GIDDINESS 07/19/2015 CHRISSY WYATT MD Ot 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 07/22/2015 CHRISSY WYATT MD, Ot F17.210 NICOTINE DEPENDENCE, CIGARETTES, UNCOMPL 07/22/2015 CHRISSY WYATT MD Ot N39.0 URINARY TRACT INFECTION, SITE NOT SPECIF 07/22/2015 CHRISSY WYATT MD, Ot R42 DIZZINESS AND GIDDINESS 07/22/2015 CHRISSY WYATT MD, Ot Z79.52 CUSTODIAL (CURRENT) USE OF SYSTEMIC STER 03/11/2016 TARA KRISHNAN MD B96.20 Unsp Escherichia coli as the cause of diseases classd elswhr 03/11/2016 TARA KRISHNAN MD D72.829 Elevated white blood cell count, unspecified 03/11/2016 TARA KRISHNAN MD E11.9 Type 2 diabetes mellitus without complications 03/11/2016 TARA KRISHNAN MD E87.6 Hypokalemia 03/11/2016 TARA KRISHNAN MD F02.81 Dementia in [facility] diseases classd elswhr w behavioral disturb 03/11/2016 TARA KRISHNAN MD F33.3 Major depressv disorder, recurrent, severe w psych symptoms 03/11/2016 TARA KRISHNAN MD G31.09 Other frontotemporal dementia 03/11/2016 TARA KRISHNAN MD I10 Essential (primary) hypertension 03/11/2016 TARA KRISHNAN MD K21.9 Gastro-esophageal reflux disease without esophagitis 03/11/2016 TARA KRISHNAN MD N39.0 Urinary tract infection, site not specified 11/30/2016 Ot 733.82 NONUNION OF FRACTURE 11/30/2016 Ot 905.2 LATE EFFECT ARM FX 11/30/2016 [facility] O[facility] TUBE [facility]EM[facility]ER [employer]OPEDIC 11/30/2016 Ot E929.3 LATE EFF ACCIDENTAL FALL 11/30/2016 SUNG DPM, DEMARCUS Q Ot 735.2 HALLUX RIGIDUS 11/30/2016 SUNG DPM, DEMARCUS Q Ot V72.63 PRE-PROCEDURAL LABORATORY EXAMINATION 11/30/2016 ABAD RODRIGUEZ MD Ot 788.1 DYSURIA 11/30/2016 MODESTO ALSTON MD Ot 571.8 CHRONIC LIVER DIS NEC 11/30/2016 MODESTO ALSTON MD Ot 599.0 URIN TRACT INFECTION NOS 11/30/2016 MODESTO ALSTON MD Ot 788.30 UNSPECIFIED URINARY INCONTINENCE 11/30/2016 ABAD RODRIGUEZ MD Ot 272.4 HYPERLIPIDEMIA NEC/NOS 11/30/2016 ABAD RODRIGUEZ MD Ot 401.9 HYPERTENSION NOS 11/30/2016 ABAD RODRIGUEZ MD Ot V76.12 OTH SCREEN MAMMO-MALIGN NEOPLASM OF ANA MARIA 11/30/2016 ABAD RODRIGUEZ MD Ot V76.12 OTH SCREEN MAMMO-MALIGN NEOPLASM OF ANA MARIA 11/30/2016 OTHER, UNLISTED Ot M51.37 OTHER INTERVERTEBRAL DISC DEGENERATION, 11/30/2016 OTHER, UNLISTED Ot M79.604 PAIN IN RIGHT LEG 11/30/2016 OTHER, UNLISTED Ot M79.605 PAIN IN LEFT LEG 12/09/2016 Ot 733.82 NONUNION OF FRACTURE 12/09/2016 Ot 905.2 LATE EFFECT ARM FX 12/09/2016 Ot 996.49 [facility] OTH TUBE [facility]EM[employer]ER [employer]THOPEDIC 12/09/2016 Ot E929.3 LATE EFF ACCIDENTAL FALL 12/09/2016 SUNG DPM, DEMARCUS Q Ot 735.2 HALLUX RIGIDUS 12/09/2016 SUNG DPM, DEMARCUS Q Ot V72.63 PRE-PROCEDURAL LABORATORY EXAMINATION 12/09/2016 ABAD RODRIGUEZ MD Ot 788.1 DYSURIA 12/09/2016 MODESTO ALSTON MD Ot 571.8 CHRONIC LIVER DIS NEC 12/09/2016 MODESTO ALSTON MD Ot 599.0 URIN TRACT INFECTION NOS 12/09/2016 MODESTO ALSTON MD Ot 788.30 UNSPECIFIED URINARY INCONTINENCE 12/09/2016 ABAD RODRIGUEZ MD Ot 272.4 HYPERLIPIDEMIA NEC/NOS 12/09/2016 ABAD RODRIGUEZ MD Ot 401.9 HYPERTENSION NOS 12/09/2016 ABAD RODRIGUEZ MD Ot V76.12 OTH SCREEN MAMMO-MALIGN NEOPLASM OF ANA MARIA 12/09/2016 ABAD RODRIGUEZ MD Ot V76.12 OTH SCREEN MAMMO-MALIGN NEOPLASM OF ANA MARIA 12/09/2016 OTHER, UNLISTED Ot M51.37 OTHER INTERVERTEBRAL DISC DEGENERATION, 12/09/2016 OTHER, UNLISTED Ot M79.604 PAIN IN RIGHT LEG 12/09/2016 OTHER, UNLISTED Ot M79.605 PAIN IN LEFT LEG 12/09/2016 LAURIE MAHAJAN Ot K76.0 FATTY (CHANGE OF) LIVER, NOT ELSEWHERE C 12/09/2016 LAURIE MAHAJAN Ot N28.9 DISORDER OF KIDNEY AND URETER, UNSPECIFI 12/09/2016 ELAN DUMONT MD Ot R93.49 ABN RADLGC FINDINGS ON DX IMAGING OF OT 12/09/2016 ELAN DUMONT MD Ot R93.49 ABN RADLGC FINDINGS ON DX IMAGING OF [facility] 12/09/2016 Ot 733.82 NONUNION OF FRACTURE 12/09/2016 Ot 905.2 LATE EFFECT ARM FX 12/09/2016 Ot 996.49 [facility] OT TUBE [facility]EM[employer]ER ORTHOPEDIC 12/09/2016 Ot E929.3 LATE EFF ACCIDENTAL FALL 12/09/2016 SUNG DPM, DEMARCUS Q Ot 735.2 HALLUX RIGIDUS 12/09/2016 SUNG DPM, DEMARCUS Q Ot V72.63 PRE-PROCEDURAL LABORATORY EXAMINATION 12/09/2016 ABAD RODRIGUEZ MD Ot 788.1 DYSURIA 12/09/2016 MODESTO ALSTON MD Ot 571.8 CHRONIC LIVER DIS NEC 12/09/2016 MODESTO ALSTON MD Ot 599.0 URIN TRACT INFECTION NOS 12/09/2016 MODESTO ALSTON MD Ot 788.30 UNSPECIFIED URINARY INCONTINENCE 12/09/2016 ABAD RODRIGUEZ MD Ot 272.4 HYPERLIPIDEMIA NEC/NOS 12/09/2016 ABAD RODRIGUEZ MD Ot 401.9 HYPERTENSION NOS 12/09/2016 ABAD RODRIGUEZ MD Ot V76.12 OTH SCREEN MAMMO-MALIGN NEOPLASM OF ANA MARIA 12/09/2016 ABAD RODRIGUEZ MD Ot V76.12 OTH SCREEN MAMMO-MALIGN NEOPLASM OF ANA MARIA 12/09/2016 OTHER, UNLISTED Ot M51.37 OTHER INTERVERTEBRAL DISC DEGENERATION, 12/09/2016 OTHER, UNLISTED Ot M79.604 PAIN IN RIGHT LEG 12/09/2016 OTHER, UNLISTED Ot M79.605 PAIN IN LEFT LEG 12/09/2016 LAURIE MAHAJAN Ot K76.0 FATTY (CHANGE OF) LIVER, NOT ELSEWHERE C 12/09/2016 LAURIE MAHAJAN Ot N28.9 DISORDER OF KIDNEY AND URETER, UNSPECIFI 12/09/2016 ELAN DUMONT MD Ot R93.49 ABN RADLGC FINDINGS ON DX IMAGING OF OT 12/12/2016 ELAN DUMONT MD Ot R93.49 ABN RADLGC FINDINGS ON DX IMAGING OF OT 12/14/2016 ELAN DUMONT MD Ot R93.49 ABN RADLGC FINDINGS ON DX IMAGING OF [facility] 12/22/2016 LAURIE MAHAJAN Ot K76.0 FATTY (CHANGE OF) LIVER, NOT ELSEWHERE C 12/22/2016 LAURIE MAHAJAN Ot N28.9 DISORDER OF KIDNEY AND URETER, UNSPECIFI 12/22/2016 ELAN DUMONT MD Ot R93.49 ABN RADLGC FINDINGS ON DX IMAGING OF [facility] 06/21/2017 Ot 733.82 NONUNION OF FRACTURE 06/21/2017 Ot 905.2 LATE EFFECT ARM FX 06/21/2017 Ot 996.49 [facility] OT TUBE [employer] 06/21/2017 Ot E929.3 LATE EFF ACCIDENTAL FALL 06/21/2017 SUNG DPM, DEMARCUS Q Ot 735.2 HALLUX RIGIDUS 06/21/2017 SUNG DPM, DEMARCUS Q Ot V72.63 PRE-PROCEDURAL LABORATORY EXAMINATION 06/21/2017 ABAD RODRIGUEZ MD Ot 788.1 DYSURIA 06/21/2017 MODESTO ALSTON MD Ot 571.8 CHRONIC LIVER DIS NEC 06/21/2017 MODESTO ALSTON MD Ot 599.0 URIN TRACT INFECTION NOS 06/21/2017 MODESTO ALSTON MD Ot 788.30 UNSPECIFIED URINARY INCONTINENCE 06/21/2017 ABAD RODRIGUEZ MD Ot 272.4 HYPERLIPIDEMIA NEC/NOS 06/21/2017 ABAD RODRIGUEZ MD Ot 401.9 HYPERTENSION NOS 06/21/2017 ABAD RODRIGUEZ MD Ot V76.12 OTH SCREEN MAMMO-MALIGN NEOPLASM OF ANA MARIA 06/21/2017 ABAD RODRIGUEZ MD Ot V76.12 OTH SCREEN MAMMO-MALIGN NEOPLASM OF ANA MARIA 06/21/2017 OTHER, UNLISTED Ot M51.37 OTHER INTERVERTEBRAL DISC DEGENERATION, 06/21/2017 OTHER, UNLISTED Ot M79.604 PAIN IN RIGHT LEG 06/21/2017 OTHER, UNLISTED Ot M79.605 PAIN IN LEFT LEG 06/21/2017 LAURIE MAHAJAN Ot K76.0 FATTY (CHANGE OF) LIVER, NOT ELSEWHERE C 06/21/2017 LAURIE MAHAJAN Ot N28.9 DISORDER OF KIDNEY AND URETER, UNSPECIFI 06/21/2017 ELAN DUMONT MD Ot R93.49 ABN RADLGC FINDINGS ON DX IMAGING OF [facility] 06/22/2017 LAURIE MAHAJAN Ot N60.01 SOLITARY CYST OF RIGHT BREAST 06/22/2017 LAURIE MAHAJAN Ot N60.01 SOLITARY CYST OF RIGHT BREAST 06/28/2017 ELAN DUMONT MD Ot R30.0 DYSURIA 06/28/2017 ELAN DUMONT MD Ot R35.0 FREQUENCY OF MICTURITION 06/28/2017 ELAN DUMONT MD Ot R39.15 URGENCY OF URINATION 06/28/2017 SUNG DPM, DEMARCUS Q Ot 735.2 HALLUX RIGIDUS 06/28/2017 SUNG DPM, DEMARCUS Q Ot V72.63 PRE-PROCEDURAL LABORATORY EXAMINATION 06/28/2017 ABAD RODRIGUEZ MD Ot 788.1 DYSURIA 06/28/2017 MODESTO ALSTON MD Ot 571.8 CHRONIC LIVER DIS NEC 06/28/2017 MODESTO ALSTON MD Ot 599.0 URIN TRACT INFECTION NOS 06/28/2017 MODESTO ALSTON MD Ot 788.30 UNSPECIFIED URINARY INCONTINENCE 06/28/2017 ABAD RODRGIUEZ MD Ot 272.4 HYPERLIPIDEMIA NEC/NOS 06/28/2017 ABAD RODRIGUEZ MD Ot 401.9 HYPERTENSION NOS 06/28/2017 ABAD RODRIGUEZ MD Ot V76.12 OTH SCREEN MAMMO-MALIGN NEOPLASM OF ANA MARIA 06/28/2017 ABAD RODRIGUEZ MD Ot V76.12 OTH SCREEN MAMMO-MALIGN NEOPLASM OF ANA MARIA 06/28/2017 OTHER, UNLISTED Ot M51.37 OTHER INTERVERTEBRAL DISC DEGENERATION, 06/28/2017 OTHER, UNLISTED Ot M79.604 PAIN IN RIGHT LEG 06/28/2017 OTHER, UNLISTED Ot M79.605 PAIN IN LEFT LEG 06/28/2017 LAURIE MAHAJAN Ot K76.0 FATTY (CHANGE OF) LIVER, NOT ELSEWHERE C 06/28/2017 LAURIE MAHAJAN Ot N28.9 DISORDER OF KIDNEY AND URETER, UNSPECIFI 06/28/2017 ELAN DUMONT MD Ot R93.49 ABN RADLGC FINDINGS ON DX IMAGING OF OT 06/28/2017 LAURIE MAHAJAN Ot N60.01 SOLITARY CYST OF RIGHT BREAST 06/28/2017 ELAN DUMONT MD Ot R30.0 DYSURIA 06/28/2017 ELAN DUMONT MD Ot R35.0 FREQUENCY OF MICTURITION 06/28/2017 ELAN DUMONT MD Ot R39.15 URGENCY OF URINATION 06/30/2017 RAFAELA SKAGGS MD Ot E11.40 TYPE 2 DIABETES MELLITUS WITH DIABETIC N 06/30/2017 RAFAELA SKAGGS MD Ot F32.9 MAJOR DEPRESSIVE DISORDER, SINGLE EPISOD 06/30/2017 RAFAELA SKAGGS MD Ot M81.0 AGE-RELATED OSTEOPOROSIS W/O CURRENT PAT 06/30/2017 RAFAELA SKAGGS MD Ot N39.0 URINARY TRACT INFECTION, SITE NOT SPECIF 06/30/2017 RAFAELA SKAGGS MD Ot R11.0 NAUSEA 06/30/2017 RAFAELA SKAGGS MD Ot Z79.52 CUSTODIAL (CURRENT) USE OF SYSTEMIC STER 06/30/2017 RAFAELA SKAGGS MD Ot Z87.19 PERSONAL HISTORY OF OTHER DISEASES OF TH 06/30/2017 RAFAELA SKAGGS MD Ot Z87.442 PERSONAL HISTORY OF URINARY CALCULI 06/30/2017 RAFAELA SKAGGS MD Ot Z87.828 PERSONAL HISTORY OF OTH (HEALED) PHYSICA 06/30/2017 RAFAELA SKAGGS MD Ot Z88.0 ALLERGY STATUS TO PENICILLIN 06/30/2017 RAFAELA SKAGGS MD Ot Z88.1 ALLERGY STATUS TO OTHER ANTIBIOTIC AGENT 06/30/2017 RAFAELA SKAGGS MD Ot Z88.2 ALLERGY STATUS TO SULFONAMIDES STATUS 06/30/2017 RAFAELA SKAGGS MD Ot Z90.49 ACQUIRED ABSENCE OF OTHER SPECIFIED PART 06/30/2017 RAFAELA SKAGGS MD Ot Z90.710 ACQUIRED ABSENCE OF BOTH CERVIX AND UTER 07/02/2017 RAFAELA SKAGGS MD Ot E11.40 TYPE 2 DIABETES MELLITUS WITH DIABETIC N 07/02/2017 RAFAELA SKAGGS MD Ot F32.9 MAJOR DEPRESSIVE DISORDER, SINGLE EPISOD 07/02/2017 RAFAELA SKAGGS MD Ot M81.0 AGE-RELATED OSTEOPOROSIS W/O CURRENT PAT 07/02/2017 RAFAELA SKAGGS MD Ot N39.0 URINARY TRACT INFECTION, SITE NOT SPECIF 07/02/2017 RAFAELA SKAGGS MD Ot R11.0 NAUSEA 07/02/2017 RAFAELA SKAGGS MD Ot 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 07/02/2017 RAFAELA SKAGGS MD Ot Z87.19 PERSONAL HISTORY OF OTHER DISEASES OF 07/02/2017 RAFAELA SKAGGS MD Ot Z87.442 PERSONAL HISTORY OF URINARY CALCULI 07/02/2017 RAFAELA SKAGGS MD Ot Z87.828 PERSONAL HISTORY OF OTH (HEALED) PHYSICA 07/02/2017 RAFAELA SKAGGS MD Ot Z88.0 ALLERGY STATUS TO PENICILLIN 07/02/2017 RAFAELA SKAGGS MD Ot Z88.1 ALLERGY STATUS TO OTHER ANTIBIOTIC AGENT 07/02/2017 RAFAELA SKAGGS MD Ot Z88.2 ALLERGY STATUS TO SULFONAMIDES STATUS 07/02/2017 RAFAELA SKAGGS MD Ot Z90.49 ACQUIRED ABSENCE OF OTHER SPECIFIED PART 07/02/2017 RAFAELA SKAGGS MD Ot Z90.710 ACQUIRED ABSENCE OF BOTH CERVIX AND UTER 07/02/2017 RAFAELA SKAGGS MD Ot E11.40 TYPE 2 DIABETES MELLITUS WITH DIABETIC N 07/02/2017 RAFAELA SKAGGS MD Ot F32.9 MAJOR DEPRESSIVE DISORDER, SINGLE EPISOD 07/02/2017 RAFAELA SKAGGS MD Ot M81.0 AGE-RELATED OSTEOPOROSIS W/O CURRENT PAT 07/02/2017 RAFAELA SKAGGS MD, Ot N39.0 URINARY TRACT INFECTION, SITE NOT SPECIF 07/02/2017 RAFAELA SKAGGS MD Ot R11.0 NAUSEA 07/02/2017 RAFAELA SKAGGS MD, Ot Z79.52 CUSTODIAL (CURRENT) USE OF SYSTEMIC STER 07/02/2017 RAFAELA SKAGGS MD, Ot Z87.19 PERSONAL HISTORY OF OTHER DISEASES OF TH 07/02/2017 RAFAELA SKAGGS MD Ot Z87.442 PERSONAL HISTORY OF URINARY CALCULI 07/02/2017 RAFAELA SKAGGS MD, Ot Z87.828 PERSONAL HISTORY OF OTH (HEALED) PHYSICA 07/02/2017 RAFAELA SKAGGS MD Ot Z88.0 ALLERGY STATUS TO PENICILLIN 07/02/2017 RAFAELA SKAGGS MD Ot Z88.1 ALLERGY STATUS TO OTHER ANTIBIOTIC AGENT 07/02/2017 RAFAELA SKAGGS MD Ot Z88.2 ALLERGY STATUS TO SULFONAMIDES STATUS 07/02/2017 RAFAELA SKAGGS MD Ot Z90.49 ACQUIRED ABSENCE OF OTHER SPECIFIED PART 07/02/2017 RAFAELA SKAGGS MD Ot Z90.710 ACQUIRED ABSENCE OF BOTH CERVIX AND UTER 07/07/2017 LAURIE MAHAJAN Ot N60.01 SOLITARY CYST OF RIGHT BREAST 07/08/2017 ELAN DUMONT MD Ot R30.0 DYSURIA 07/08/2017 ELAN DUMONT MD Ot R35.0 FREQUENCY OF MICTURITION 07/08/2017 ELAN DUMONT MD Ot R39.15 URGENCY OF URINATION 08/20/2017 LAURIE MAHAJAN Ot E11.9 TYPE 2 DIABETES MELLITUS WITHOUT COMPLIC 08/20/2017 LAURIE MAHAJAN Ot R30.0 DYSURIA 08/20/2017 ZAINA, LAURIE [employer]S COORDINATOR Ot R35.0 FREQUENCY OF MICTURITION 08/20/2017 LAURIE MAHAJAN AUTOMOTIVE PARTS COORDINATOR Ot R39.15 URGENCY OF URINATION 09/02/2017 LAURIE MAHJAAN AUTOMOTIVE PARTS COORDINATOR Ot E11.9 TYPE 2 DIABETES MELLITUS WITHOUT COMPLIC 09/02/2017 LAURIE MAHAJAN AUTOMOTIVE PARTS COORDINATOR Ot R30.0 DYSURIA 09/02/2017 LAURIE MAHAJANP Ot R35.0 FREQUENCY OF MICTURITION 09/02/2017 LAURIE MAHAJANP Ot R39.15 URGENCY OF URINATION 10/08/2017 LAURIE MAHAJANP Ot N60.01 SOLITARY CYST OF RIGHT BREAST 10/20/2017 LAURIE MAHAJANP Ot N60.01 SOLITARY CYST OF RIGHT BREAST 01/12/2018 SUNG DPM, DEMARCUS Q Ot 735.2 HALLUX RIGIDUS 01/12/2018 SUNG DPM, DEMARCUS Q Ot V72.63 PRE-PROCEDURAL LABORATORY EXAMINATION 01/12/2018 ABAD RODRIGUEZ MD Ot 788.1 DYSURIA 01/12/2018 MODESTO ALSTON MD Ot 571.8 CHRONIC LIVER DIS NEC 01/12/2018 MODESTO ALSTON MD S Ot 599.0 URIN TRACT INFECTION NOS 01/12/2018 MODESTO ALSTON MD S Ot 788.30 UNSPECIFIED URINARY INCONTINENCE 01/12/2018 ABAD RODRIGUEZ MD Ot 272.4 HYPERLIPIDEMIA NEC/NOS 01/12/2018 ABAD RODRIGUEZ MD Ot 401.9 HYPERTENSION NOS 01/12/2018 ABAD RODRIGUEZ MD Ot V76.12 OTH SCREEN MAMMO-MALIGN NEOPLASM OF ANA MARIA 01/12/2018 ABAD RODRIGUEZ MD Ot V76.12 OTH SCREEN MAMMO-MALIGN NEOPLASM OF ANA MARIA 01/12/2018 OTHER, UNLISTED Ot M51.37 OTHER INTERVERTEBRAL DISC DEGENERATION, 01/12/2018 OTHER, UNLISTED Ot M79.604 PAIN IN RIGHT LEG 01/12/2018 OTHER, UNLISTED Ot M79.605 PAIN IN LEFT LEG 01/12/2018 LAURIE MAHAJAN Ot K76.0 FATTY (CHANGE OF) LIVER, NOT ELSEWHERE C 01/12/2018 LAURIE MAHAJANP Ot N28.9 DISORDER OF KIDNEY AND URETER, UNSPECIFI 01/12/2018 ELAN DUMONT MD Ot R93.49 ABN RADLGC FINDINGS ON DX IMAGING OF OTH 01/12/2018 LAURIE MAHAJAN Ot N60.01 SOLITARY CYST OF RIGHT BREAST 01/12/2018 ELAN DUMONT MD Ot R30.0 DYSURIA 01/12/2018 ELAN DUMONT MD Ot R35.0 FREQUENCY OF MICTURITION 01/12/2018 ELAN DUMONT MD Ot R39.15 URGENCY OF URINATION 01/12/2018 LAURIE MAHAJAN Ot N60.01 SOLITARY CYST OF RIGHT BREAST 01/12/2018 LAURIE MAHAJAN Ot E11.9 TYPE 2 DIABETES MELLITUS WITHOUT COMPLIC 01/12/2018 LAURIE MAHAJAN Ot R30.0 DYSURIA 01/12/2018 LAURIE MAHAJAN Ot R35.0 FREQUENCY OF MICTURITION 01/12/2018 LAURIE MAHAJAN Ot R39.15 URGENCY OF URINATION 01/14/2018 DAVID KIRKPATRICK, BOO [place] Ot M47.816 SPONDYLOSIS W/O MYELOPATHY OR RADICULOPA 01/14/2018 DAVID KIRKPATRICK, BOO [place] Ot M48.061 SPINAL STENOSIS, LUMBAR REGION WITHOUT N Procedures Code Description [place] [address] XRAY FOOT RIGHT 2 VIEWS 06/10/2012 Results Test Result Range Comp. Metabolic Panel (14) - 12/31/15 15:34 Glucose, Serum 206 mg/dL 65-99 BUN 10 mg/dL 8-27 Creatinine, Serum 0.76 mg/dL 0.57-1.00 eGFR If NonAfricn Am 82 mL/min/1.73 >59 eGFR If Africn Am 95 mL/min/1.73 >59 BUN/Creatinine Ratio 13 11-26 Sodium, Serum 142 mmol/L 134-144 Potassium, Serum 3.8 mmol/L 3.5-5.2 Chloride, Serum 98 mmol/L 97-108 Carbon Dioxide, Total 27 mmol/L 18-29 Calcium, Serum 9.3 mg/dL 8.7-10.3 Protein, Total, Serum 6.9 g/dL 6.0-8.5 Albumin, Serum 4.3 g/dL 3.6-4.8 Globulin, Total 2.6 g/dL 1.5-4.5 A/G Ratio 1.7 1.1-2.5 Bilirubin, Total 0.3 mg/dL 0.0-1.2 Alkaline Phosphatase, S 94 IU/L 39-117 AST (SGOT) 23 IU/L 0-40 ALT (SGPT) 25 IU/L 0-32 Hemoglobin A1c - 12/31/15 15:34 Hemoglobin A1c 7.1 % 4.8-5.6 COMPLETE BLOOD COUNT - 03/04/16 13:34 Platelet 321 10^3u 142-424 MPV 11.3 FL 9.4-12.4 [place] # 1.32 10^3u 0.0-1.0 [place] 3.0 RBC 4.60 10^6u 4.04-6.13 [place] % 8.9 % 0-12 RDW 14.1 % 11.6-14.8 Seg 44.0 Neut # 6.57 10^3u 2.0-6.9 Neut % 44.1 % 37-80 WBC 14.90 10^3u 4.60-10.20 Bands 3.0 MCV 91.3 FL 80.0-97.0 Baso 1.0 Baso # 0.03 10^3u 0.0-0.1 Baso % 0.2 % 0-2 Eos 0.0 Eos # 0.18 10^3u 0-0.7 Eos % 1.2 % 0-7 Lymph % 45.6 % 10-50 MCHC 34.0 G/DL 31.8-35.4 MCH 31.1 PG 27.0-31.2 Lymph # 6.80 10^3u 0.6-3.4 Lymph 49.0 HGB 14.3 G/DL 12.2-18.1 HCT 42.0 % 37.7-53.7 Platelet Clumping Large platelets CMP - 03/04/16 14:16 Osmo Calculated 281 MOSM 261-280 Sodium 143 MMOLL 136-145 T. Protein 7.2 G/DL 6.4-8.3 Potassium 3.1 MMOLL 3.5-5.1 T Bili 0.2 MG/DL 0.2-1.2 Calcium 9.5 MG/DL 8.4-10.2 BUN 15 MG/DL 7-26 Chloride 102 MMOLL 98-107 AST 22 U/L 5-34 ALT 24 U/L 0-55 Albumin 3.4 G/DL 3.5-5.0 A/G Ratio 0.9 RATIO 1.2-2.2 Bun/Creat 17 RATIO 7-25 Alk Phos 110 U/L 40-150 CO2 29 MMOLL 22-29 Glucose 180 MG/DL 70-99 Globulin 3.8 G/DL 2.4-3.5 Creatinine 0.9 MG/DL 0.6-1.3 TSH - 03/04/16 14:16 TSH 1.52 UIUML 0.35-4.94 Free T4 - 03/04/16 14:16 Free T4 0.99 NG/DL 0.70-1.48 Urinalysis - 03/05/16 11:20 Glucose Negative Negative Leukocyte 2+ Negative Nitrite Positive Negative pH 7.0 5.5-7.5 Urine Appearance Clear Clear Protein Negative Negative Ketones Negative Negative Urobilinogen 0.2 0.2-1.0 Urine RBC N3-5 [address] [place] 1.015 1.010-1.020 Urine WBC N21-30 Urine Bacteria 3+ Hyaline Casts Trace Blood Negative Negative Color Yellow Yellow Bilirubin Negative Negative Site CATH BMP - 03/05/16 13:30 Osmo Calculated 277 MOSM 261-280 Sodium 142 MMOLL 136-145 Potassium 2.7 MMOLL 3.5-5.1 Calcium 9.4 MG/DL 8.4-10.2 BUN 13 MG/DL 7-26 Chloride 100 MMOLL 98-107 Anion GAP 14 MMOLL 5-16 Bun/Creat 14 RATIO 7-25 CO2 28 MMOLL 22-29 Glucose 146 MG/DL 70-99 Creatinine 0.9 MG/DL 0.6-1.3 COMPLETE BLOOD COUNT - 03/05/16 14:12 Platelet 289 10^3u 142-424 MPV 11.2 FL 9.4-12.4 [place] # 1.34 10^3u 0.0-1.0 RBC 4.51 10^6u 4.04-6.13 [place] % 8.7 % 0-12 RDW 14.0 % 11.6-14.8 Neut # 7.15 10^3u 2.0-6.9 Neut % 46.3 % 37-80 WBC 15.43 10^3u 4.60-10.20 MCV 92.5 FL 80.0-97.0 Baso # 0.03 10^3u 0.0-0.1 Baso % 0.2 % 0-2 Eos # 0.21 10^3u 0-0.7 Eos % 1.4 % 0-7 Lymph % 43.4 % 10-50 MCHC 32.9 G/DL 31.8-35.4 MCH 30.4 PG 27.0-31.2 Lymph # 6.70 10^3u 0.6-3.4 HGB 13.7 G/DL 12.2-18.1 HCT 41.7 % 37.7-53.7 EKG - 03/06/16 05:28 EKG SMR COMPLETE BLOOD COUNT - 03/06/16 18:21 Platelet 300 10^3u 142-424 MPV 10.9 FL 9.4-12.4 [place] # 1.26 10^3u 0.0-1.0 RBC 4.68 10^6u 4.04-6.13 [place] % 9.0 % 0-12 RDW 14.0 % 11.6-14.8 Neut # 7.33 10^3u 2.0-6.9 Neut % 52.1 % 37-80 WBC 14.04 10^3u 4.60-10.20 MCV 90.8 FL 80.0-97.0 Baso # 0.03 10^3u 0.0-0.1 Baso % 0.2 % 0-2 Eos # 0.19 10^3u 0-0.7 Eos % 1.4 % 0-7 Lymph % 37.3 % 10-50 MCHC 33.6 G/DL 31.8-35.4 MCH 30.6 PG 27.0-31.2 Lymph # 5.23 10^3u 0.6-3.4 HGB 14.3 G/DL 12.2-18.1 HCT 42.5 % 37.7-53.7 BMP - 03/06/16 19:27 Osmo Calculated 277 MOSM 261-280 Sodium 140 MMOLL 136-145 Potassium 3.0 MMOLL 3.5-5.1 Calcium 9.8 MG/DL 8.4-10.2 BUN 17 MG/DL 7-26 Chloride 97 MMOLL 98-107 Anion GAP 13 MMOLL 5-16 Bun/Creat 17 RATIO 7-25 CO2 30 MMOLL 22-29 Glucose 197 MG/DL 70-99 Creatinine 1.0 MG/DL 0.6-1.3 COMPLETE BLOOD COUNT - 03/07/16 06:29 Platelet 290 10^3u 142-424 MPV 10.9 FL 9.4-12.4 [place] # 1.13 10^3u 0.0-1.0 RBC 4.55 10^6u 4.04-6.13 [place] % 10.3 % 0-12 RDW 13.8 % 11.6-14.8 Neut # 4.71 10^3u 2.0-6.9 Neut % 43.1 % 37-80 WBC 10.94 10^3u 4.60-10.20 MCV 89.9 FL 80.0-97.0 Baso # 0.02 10^3u 0.0-0.1 Baso % 0.2 % 0-2 Eos # 0.21 10^3u 0-0.7 Eos % 1.9 % 0-7 Lymph % 44.5 % 10-50 MCHC 34.0 G/DL 31.8-35.4 MCH 30.5 PG 27.0-31.2 Lymph # 4.87 10^3u 0.6-3.4 HGB 13.9 G/DL 12.2-18.1 HCT 40.9 % 37.7-53.7 BMP - 03/07/16 06:48 Osmo Calculated 278 MOSM 261-280 Sodium 142 MMOLL 136-145 Potassium 3.3 MMOLL 3.5-5.1 Calcium 9.5 MG/DL 8.4-10.2 BUN 14 MG/DL 7-26 Chloride 102 MMOLL 98-107 Anion GAP 14 MMOLL 5-16 Bun/Creat 16 RATIO 7-25 CO2 26 MMOLL 22-29 Glucose 166 MG/DL 70-99 Creatinine 0.9 MG/DL 0.6-1.3 COMPLETE BLOOD COUNT - 03/10/16 05:58 Platelet 257 10^3u 142-424 MPV 11.2 FL 9.4-12.4 [place] # 1.24 10^3u 0.0-1.0 RBC 4.17 10^6u 4.04-6.13 [place] % 12.2 % 0-12 RDW 13.7 % 11.6-14.8 Neut # 4.39 10^3u 2.0-6.9 Neut % 43.3 % 37-80 WBC 10.14 10^3u 4.60-10.20 MCV 91.8 FL 80.0-97.0 Baso # 0.02 10^3u 0.0-0.1 Baso % 0.2 % 0-2 Eos # 0.29 10^3u 0-0.7 Eos % 2.9 % 0-7 Lymph % 41.4 % 10-50 MCHC 33.2 G/DL 31.8-35.4 MCH 30.5 PG 27.0-31.2 Lymph # 4.20 10^3u 0.6-3.4 HGB 12.7 G/DL 12.2-18.1 HCT 38.3 % 37.7-53.7 BMP - 03/10/16 05:58 Osmo Calculated 277 MOSM 261-280 Sodium 142 MMOLL 136-145 Potassium 3.3 MMOLL 3.5-5.1 Calcium 9.1 MG/DL 8.4-10.2 BUN 15 MG/DL 7-26 Chloride 104 MMOLL 98-107 Anion GAP 12 MMOLL 5-16 Bun/Creat 17 RATIO 7-25 CO2 26 MMOLL 22-29 Glucose 141 MG/DL 70-99 Creatinine 0.9 MG/DL 0.6-1.3 COMPLETE BLOOD COUNT - 03/11/16 05:27 Platelet 256 10^3u 142-424 MPV 11.0 FL 9.4-12.4 [place] # 1.20 10^3u 0.0-1.0 RBC 4.25 10^6u 4.04-6.13 [place] % 11.5 % 0-12 RDW 13.6 % 11.6-14.8 Neut # 3.87 10^3u 2.0-6.9 Neut % 36.9 % 37-80 WBC 10.48 10^3u 4.60-10.20 MCV 91.8 FL 80.0-97.0 Baso # 0.02 10^3u 0.0-0.1 Baso % 0.2 % 0-2 Eos # 0.45 10^3u 0-0.7 Eos % 4.3 % 0-7 Lymph % 47.1 % 10-50 MCHC 33.1 G/DL 31.8-35.4 MCH 30.4 PG 27.0-31.2 Lymph # 4.94 10^3u 0.6-3.4 HGB 12.9 G/DL 12.2-18.1 HCT 39.0 % 37.7-53.7 BMP - 03/11/16 05:41 Osmo Calculated 279 MOSM 261-280 Sodium 143 MMOLL 136-145 Potassium 3.7 MMOLL 3.5-5.1 Calcium 9.2 MG/DL 8.4-10.2 BUN 17 MG/DL 7-26 Chloride 107 MMOLL 98-107 Anion GAP 10 MMOLL 5-16 Bun/Creat 21 RATIO 7-25 CO2 26 MMOLL 22-29 Glucose 131 MG/DL 70-99 Creatinine 0.8 MG/DL 0.6-1.3 Serum or plasma urea nitrogen measurement (mass/volume) - 12/01/16 13:14 Serum or plasma urea nitrogen measurement (mass/volume) 17 mg/dL 7-18 Serum or plasma creatinine measurement (mass/volume) - 12/01/16 13:14 Serum or plasma creatinine measurement (mass/volume) 0.88 mg/dL 0.60-1.30 Serum or plasma creatinine measurement with calculation of estimated glomerular filtration rate - 12/01/16 13:14 Serum or plasma creatinine measurement with calculation of estimated glomerular filtration rate > NRG Complete urinalysis with reflex to culture - 12/06/16 11:48 Urine color determination YELLOW NRG Urine clarity determination CLEAR NRG Urine pH measurement by test strip 7 5-9 Specific gravity of urine by test strip 1.005 1.016- 1.022 Urine protein assay by test strip, semi-quantitative NEGATIVE NEGATIVE Urine glucose detection by automated test strip 3+ NEGATIVE Erythrocytes detection in urine sediment by light microscopy 1+ NEGATIVE Urine ketones detection by automated test strip NEGATIVE NEGATIVE Urine nitrite detection by test strip NEGATIVE NEGATIVE Urine total bilirubin detection by test strip NEGATIVE NEGATIVE Urine urobilinogen measurement by automated test strip (mass/volume) NORMAL NORMAL Urine leukocyte esterase detection by dipstick 3+ NEGATIVE Automated urine sediment erythrocyte count by microscopy (number/high power field) [HPF] NRG Automated urine sediment leukocyte count by microscopy (number/high power field ) TNTC NRG Bacteria detection in urine sediment by light microscopy LARGE NRG Crystals detection in urine sediment by light microscopy NONE NRG Casts detection in urine sediment by light microscopy NONE NRG Mucus detection in urine sediment by light microscopy SMALL NRG Complete urinalysis with reflex to culture YES NRG Renal epithelial cells detection in urine sediment by light microscopy 0-2 NRG Bacterial urine culture - 12/06/16 11:48 Bacterial urine culture [id number] NRG COLONY COUNT 10,000/ML - 100,000/ML NRG FTX;REPORTABLE PLUS, NRG FREE TEXT ENTRY 2 MIXED GRAM POSITIVES <10,000/ML NRG FREE TEXT ENTRY 3 SENSITIVITIES REPORTED 12/08/16 8:15 [facility] Bacterial susceptibility panel - 12/06/16 11:48 Gentamicin susceptibility test by minimum inhibitory concentration < = NRG Trimethoprim/sulfamethoxazole susceptibility test by minimum inhibitoryconcentration <= NRG Ampicillin susceptibility test by minimum inhibitory concentration R NR Tobramycin susceptibility test by minimum inhibitory concentration < = NR Cefazolin susceptibility test by minimum inhibitory concentration < = NR Ceftriaxone susceptibility test by minimum inhibitory concentration <= NRG Ampicillin/sulbactam susceptibility test by minimum inhibitory concentration 4 NR Piperacillin/tazobactam susceptibility test by minimum inhibitory concentration <= NRG Ciprofloxacin susceptibility test by minimum inhibitory concentration <= NR Meropenem susceptibility test by minimum inhibitory concentration < = NR Nitrofurantoin susceptibility test by minimum inhibitory concentration <= NR Aztreonam susceptibility test by minimum inhibitory concentration < = NRG Extended spectrum beta lactamase (ESBL) producing bacteria susceptibility test by minimum inhibitory concentration - [facility] Bacterial susceptibility panel - 12/06/16 11:48 Gentamicin susceptibility test by minimum inhibitory concentration R NR Vancomycin susceptibility test by minimum inhibitory concentration 1 NR Levofloxacin susceptibility test by minimum inhibitory concentration >= NRG Tetracycline susceptibility test by minimum inhibitory concentration >= NR Ampicillin susceptibility test by minimum inhibitory concentration < = NRG Ciprofloxacin susceptibility test by minimum inhibitory concentration R NR Nitrofurantoin susceptibility test by minimum inhibitory concentration <= NR Linezolid susceptibility test by minimum inhibitory concentration 2 [facility] Bacterial susceptibility panel - 12/06/16 11:48 Gentamicin susceptibility test by minimum inhibitory concentration < = NR Trimethoprim/sulfamethoxazole susceptibility test by minimum inhibitoryconcentration <= NR Ampicillin susceptibility test by minimum inhibitory concentration < = NRG Tobramycin susceptibility test by minimum inhibitory concentration < = NR Cefazolin susceptibility test by minimum inhibitory concentration < = NRG Ceftriaxone susceptibility test by minimum inhibitory concentration <= NRG Ampicillin/sulbactam susceptibility test by minimum inhibitory concentration <= NRG Piperacillin/tazobactam susceptibility test by minimum inhibitory concentration <= NRG Ciprofloxacin susceptibility test by minimum inhibitory concentration <= NRG Meropenem susceptibility test by minimum inhibitory concentration < = NRG Nitrofurantoin susceptibility test by minimum inhibitory concentration 128 NRG Aztreonam susceptibility test by minimum inhibitory concentration < = NRG Complete urinalysis with reflex to culture - 06/23/17 13:50 Urine color determination YELLOW NRG Urine clarity determination CLEAR NRG Urine pH measurement by test strip 7 5-9 Specific gravity of urine by test strip 1.005 1.016- 1.022 Urine protein assay by test strip, semi-quantitative NEGATIVE NEGATIVE Urine glucose detection by automated test strip NEGATIVE NEGATIVE Erythrocytes detection in urine sediment by light microscopy NEGATIVE NEGATIVE Urine ketones detection by automated test strip NEGATIVE NEGATIVE Urine nitrite detection by test strip NEGATIVE NEGATIVE Urine total bilirubin detection by test strip NEGATIVE NEGATIVE Urine urobilinogen measurement by automated test strip (mass/volume) NORMAL NORMAL Urine leukocyte esterase detection by dipstick 2+ NEGATIVE Automated urine sediment erythrocyte count by microscopy (number/high power field) NONE NRG Automated urine sediment leukocyte count by microscopy (number/high power field ) [HPF] NRG Bacteria detection in urine sediment by light microscopy LARGE NRG Squamous epithelial cells detection in urine sediment by light microscopy 2-5 NRG Crystals detection in urine sediment by light microscopy NONE NRG Casts detection in urine sediment by light microscopy NONE NRG Mucus detection in urine sediment by light microscopy NEGATIVE NRG Complete urinalysis with reflex to culture YES NRG Bacterial urine culture - 06/23/17 13:50 Bacterial urine culture [id number] NRG COLONY COUNT >100,000/ML NRG FTX;REPORTABLE SENSITIVITY REPORTED 06/25/17 10:15 NRG FREE TEXT ENTRY 2 PLUS, NRG FREE TEXT ENTRY 3 MIXED GRAM POSITIVES <10,000/ML NRG Bacterial susceptibility panel - 06/23/17 13:50 Gentamicin susceptibility test by minimum inhibitory concentration < = NRG Trimethoprim/sulfamethoxazole susceptibility test by minimum inhibitoryconcentration S NRG Ampicillin susceptibility test by minimum inhibitory concentration R NRG Tobramycin susceptibility test by minimum inhibitory concentration < = NRG Cefazolin susceptibility test by minimum inhibitory concentration < = NRG Ceftriaxone susceptibility test by minimum inhibitory concentration <= NRG Ampicillin/sulbactam susceptibility test by minimum inhibitory concentration S NRG Piperacillin/tazobactam susceptibility test by minimum inhibitory concentration S NRG Ciprofloxacin susceptibility test by minimum inhibitory concentration <= NRG Meropenem susceptibility test by minimum inhibitory concentration < = NRG Nitrofurantoin susceptibility test by minimum inhibitory concentration <= NRG Aztreonam susceptibility test by minimum inhibitory concentration < = NRG Extended spectrum beta lactamase (ESBL) producing bacteria susceptibility test by minimum inhibitory concentration - NRG Complete blood count (CBC) with automated white blood cell (WBC) differential - 06/30/17 18:38 Blood leukocytes automated count (number/volume) 17.9 10*3/uL 4.3-11.0 Blood erythrocytes automated count (number/volume) 4.78 10*6/uL 4.35-5.85 Venous blood hemoglobin measurement (mass/volume) 14.8 g/dL 11.5-16.0 Blood hematocrit (volume fraction) 42 % 35-52 Automated erythrocyte mean corpuscular volume 88 [foz_us] 80-99 Automated erythrocyte mean corpuscular hemoglobin (mass per erythrocyte) 31 pg 25-34 Automated erythrocyte mean corpuscular hemoglobin concentration measurement ( mass/volume) 35 g/dL 32-36 Automated erythrocyte distribution width ratio 12.7 % 10.0-14.5 Automated blood platelet count (count/volume) 455 10*3/uL 130-400 Automated blood platelet mean volume measurement 10.4 [foz_us] 7.4-10.4 Automated blood neutrophils/100 leukocytes 57 % 42-75 Automated blood lymphocytes/100 leukocytes 36 % 12-44 Blood monocytes/100 leukocytes 7 % 0-12 Automated blood eosinophils/100 leukocytes 1 % 0-10 Automated blood basophils/100 leukocytes 0 % 0-10 Blood neutrophils automated count (number/volume) 10.1 10*3 1.8-7.8 Blood lymphocytes automated count (number/volume) 6.4 10*3 1.0-4.0 Blood monocytes automated count (number/volume) 1.2 10*3 0.0-1.0 Automated eosinophil count 0.1 10*3/uL 0.0-0.3 Automated blood basophil count (count/volume) 0.0 10*3/uL 0.0-0.1 Comprehensive metabolic panel - 06/30/17 18:38 Serum or plasma sodium measurement (moles/volume) 136 mmol/L 135-145 Serum or plasma potassium measurement (moles/volume) 4.1 mmol/L 3.6-5.0 Serum or plasma chloride measurement (moles/volume) 98 mmol/L 98-107 Carbon dioxide 25 mmol/L 21-32 Serum or plasma anion gap determination (moles/volume) 13 mmol/L 5-14 Serum or plasma urea nitrogen measurement (mass/volume) 14 mg/dL 7-18 Serum or plasma creatinine measurement (mass/volume) 0.85 mg/dL 0.60-1.30 Serum or plasma urea nitrogen/creatinine mass ratio 16 NRG Serum or plasma creatinine measurement with calculation of estimated glomerular filtration rate > NRG Serum or plasma glucose measurement (mass/volume) 118 mg/dL 70-105 Serum or plasma calcium measurement (mass/volume) 10.0 mg/dL 8.5-10.1 Serum or plasma total bilirubin measurement (mass/volume) 0.5 mg/dL 0.1-1.0 Serum or plasma alkaline phosphatase measurement (enzymatic activity/volume) 78 U/L 40-136 Serum or plasma aspartate aminotransferase measurement (enzymatic activity/ volume) 32 U/L 5-34 Serum or plasma alanine aminotransferase measurement (enzymatic activity/volume ) 31 U/L 0-55 Serum or plasma protein measurement (mass/volume) 7.7 g/dL 6.4-8.2 Serum or plasma albumin measurement (mass/volume) 4.2 g/dL 3.2-4.5 Magnesium - 06/30/17 18:38 Magnesium 1.7 mg/dL 1.8-2.4 Serum or plasma troponin i.cardiac measurement (mass/volume) - 06/30/17 18:38 Serum or plasma troponin i.cardiac measurement (mass/volume) < ng/ mL <0.30 Lipase - 06/30/17 18:38 Lipase 43 U/L 8-78 Serum or plasma C reactive protein measurement (mass/volume) - 06/30/17 18:38 Serum or plasma C reactive protein measurement (mass/volume) 0.94 mg /dL 0.00-0.50 Blood manual differential performed detection - 06/30/17 18:38 Blood monocytes/100 leukocytes 4 % NRG Manual blood segmented neutrophils/100 leukocytes 59 % NRG Blood band neutrophils/100 leukocytes 5 % NRG Manual blood lymphocytes/100 leukocytes 31 % NRG Manual eosinophils/100 leukocytes in nose 1 % NRG Manual blood basophils/100 leukocytes 0 % NRG Blood erythrocyte morphology finding identification NORMAL NRG Complete urinalysis with reflex to culture - 06/30/17 20:50 Urine color determination YELLOW NRG Urine clarity determination SLIGHTLY CLOUDY NRG Urine pH measurement by test strip 7 5-9 Specific gravity of urine by test strip 1.010 1.016- 1.022 Urine protein assay by test strip, semi-quantitative 1+ NEGATIVE Urine glucose detection by automated test strip NEGATIVE NEGATIVE Erythrocytes detection in urine sediment by light microscopy 2+ NEGATIVE Urine ketones detection by automated test strip NEGATIVE NEGATIVE Urine nitrite detection by test strip POSITIVE NEGATIVE Urine total bilirubin detection by test strip NEGATIVE NEGATIVE Urine urobilinogen measurement by automated test strip (mass/volume) NORMAL NORMAL Urine leukocyte esterase detection by dipstick 3+ NEGATIVE Automated urine sediment erythrocyte count by microscopy (number/high power field) [HPF] NRG Automated urine sediment leukocyte count by microscopy (number/high power field ) [HPF] NRG Bacteria detection in urine sediment by light microscopy MODERATE NRG Crystals detection in urine sediment by light microscopy NONE NRG Casts detection in urine sediment by light microscopy NONE NRG Mucus detection in urine sediment by light microscopy NEGATIVE NRG Complete urinalysis with reflex to culture YES NRG Urine drug screening test - 06/30/17 20:50 Urine phencyclidine detection by screening method NEGATIVE NEGATIVE Urine benzodiazepines detection by screening method NEGATIVE NEGATIVE Urine cocaine detection NEGATIVE NEGATIVE Urine amphetamines detection by screening method NEGATIVE NEGATIVE Urine methamphetamine detection by screening method NEGATIVE NEGATIVE Urine cannabinoids detection by screening method NEGATIVE NEGATIVE Urine opiates detection by screening method POSITIVE NEGATIVE Urine barbiturates detection NEGATIVE NEGATIVE Screening urine tricyclic antidepressants detection NEGATIVE NEGATIVE Urine methadone detection by screening method NEGATIVE NEGATIVE Urine oxycodone detection NEGATIVE NEGATIVE Urine propoxyphene detection NEGATIVE NEGATIVE Bacterial urine culture - 06/30/17 20:50 Bacterial urine culture [id number] NRG COLONY COUNT >100,000/ML NRG FTX;REPORTABLE SENSITIVITY REPORTED 07/02/17 8:50 NRG Bacterial susceptibility panel - 06/30/17 20:50 Gentamicin susceptibility test by minimum inhibitory concentration < = NRG Tobramycin susceptibility test by minimum inhibitory concentration < = NRG Piperacillin/tazobactam susceptibility test by minimum inhibitory concentration S NRG Ciprofloxacin susceptibility test by minimum inhibitory concentration <= NRG Meropenem susceptibility test by minimum inhibitory concentration < = NRG Cefepime susceptibility test by minimum inhibitory concentration <= NRG Bacterial urine culture - 08/18/17 08:21 Bacterial urine culture [id number] NRG COLONY COUNT >100,000/ML NRG FTX;REPORTABLE SENT TO [facility] 08/18/17 16:30 NRG FREE TEXT ENTRY 2 SENSITIVITY REPORTED 08/20/17 09:05 NRG [facility] Sensitivity Panel - 08/18/17 08:21 Gentamicin susceptibility test by minimum inhibitory concentration < = NRG Trimethoprim/sulfamethoxazole susceptibility test by minimum inhibitoryconcentration > NRG Levofloxacin susceptibility test by minimum inhibitory concentration > NRG Ampicillin susceptibility test by minimum inhibitory concentration > NRG Cefazolin susceptibility test by minimum inhibitory concentration 8 NRG Ceftriaxone susceptibility test by minimum inhibitory concentration <= NRG Ciprofloxacin susceptibility test by minimum inhibitory concentration > NRG Meropenem susceptibility test by minimum inhibitory concentration < = NRG Nitrofurantoin susceptibility test by minimum inhibitory concentration 64 NRG Amoxicillin and clavulanate potassium susc GIANA = NRG Complete urinalysis with reflex to culture - 08/18/17 13:00 Urine color determination YELLOW NRG Urine clarity determination VERY CLOUDY NRG Urine pH measurement by test strip 7 5-9 Specific gravity of urine by test strip 1.005 1.016- 1.022 Urine protein assay by test strip, semi-quantitative NEGATIVE NEGATIVE Urine glucose detection by automated test strip NEGATIVE NEGATIVE Erythrocytes detection in urine sediment by light microscopy 2+ NEGATIVE Urine ketones detection by automated test strip NEGATIVE NEGATIVE Urine nitrite detection by test strip NEGATIVE NEGATIVE Urine total bilirubin detection by test strip NEGATIVE NEGATIVE Urine urobilinogen measurement by automated test strip (mass/volume) NORMAL NORMAL Urine leukocyte esterase detection by dipstick 3+ NEGATIVE Automated urine sediment erythrocyte count by microscopy (number/high power field) [HPF] NRG Automated urine sediment leukocyte count by microscopy (number/high power field ) TNTC NRG Bacteria detection in urine sediment by light microscopy LARGE NRG Squamous epithelial cells detection in urine sediment by light microscopy 5-10 NRG Crystals detection in urine sediment by light microscopy PRESENT NRG Casts detection in urine sediment by light microscopy NONE NRG Mucus detection in urine sediment by light microscopy NEGATIVE NRG Complete urinalysis with reflex to culture YES NRG Renal epithelial cells detection in urine sediment by light microscopy NONE NRG Triple phosphate crystals detection in urine sediment by light microscopy RARE NRG Urine microalbumin measurement by test strip (mass/volume) - 08/18/17 13:00 Urine creatinine measurement (mass/volume) 71 % NRG Microalbumin [mass/volume] in urine 20.5 % 0.0-20.0 Microalbumin/creatinine [ratio] in urine 28.9 mg/g{Cre} 0.0-30.0 Encounters ACCT No. Visit Date/Time Discharge Status Pt. Type Provider Facility Loc./Unit Complaint [id number] 03/04/2016 11:00:00 03/11/2016 10:45:00 DIS Inpatient EULOGIO KIRKPATRICK, TARA [facility] [id number] 01/13/2018 09:59:00 01/13/2018 23:59:59 CLS Outpatient BOO HERNANDEZ MD [facility] RAD LUMBAGO [id number] 10/07/2017 09:52:00 10/07/2017 23:59:59 CLS Outpatient LAURIE MAHAJAN [facility] RAD 3 MONTH F/U FOR LUMP [id number] 08/18/2017 13:35:00 08/18/2017 23:59:59 CLS Outpatient LAURIE MAHAJAN [facility] LABNPT UA REFLEX TO CULTURE, MICROALBUMIN [id number] 06/30/2017 18:30:00 06/30/2017 22:55:00 DIS Emergency SHARIFA KIRKPATRICK, RAFAELA [place] [facility] ER NAUSEA [id number] 06/23/2017 14:53:00 06/23/2017 23:59:59 CLS Outpatient ELAN DUMONT MD [facility] MLF [id number] 06/21/2017 09:14:00 06/21/2017 23:59:59 CLS Outpatient LAURIE MAHAJAN [facility] RAD BREAST MASS,RIGHT [id number] 2016 13:25:00 2016 23:59:59 CLS Outpatient ELAN DUMONT MD [facility] MLF POSSIBLE PYELONEPHRITIS SHOWN ON CT SCAN [id number] 12/01/2016 12:47:00 12/01/2016 23:59:59 CLS Outpatient LAURIE MAHAJAN [facility] RAD K43.9 [id number] 07/19/2015 15:03:00 07/19/2015 18:29:00 DIS Emergency CHRISSY WYATT MD [facility] ER FALL/WEAKNESS [id number] 04/04/2015 14:13:00 04/04/2015 17:36:00 DIS Emergency ABAD RODRIGUEZ MD [facility] ER DIARRHEA [id number] 03/13/2015 12:31:00 03/13/2015 23:59:59 CLS Outpatient OTHER, UNLISTED [facility] RAD DDD, RADICULOPATHY [id number] 01/02/2015 10:59:00 01/02/2015 23:59:59 CLS Outpatient ABAD RODRIGUEZ MD [facility] RAD SCREENING [id number] 11/07/2014 12:55:00 11/29/2014 09:31:00 DIS Outpatient ABAD RODRIGUEZ MD [facility] REHAB LOW BACK PAIN [id number] 10/19/2014 14:08:00 10/19/2014 16:37:00 DIS Emergency FRANCISCO CORRALES APRN [facility] ER FALL/RT SHOULDER PAIN [id number] 10/05/2014 14:41:00 10/05/2014 17:38:00 DIS Emergency SHERI PATTERSON [facility] BACK PAIN [id number] 09/18/2014 08:08:00 09/18/2014 09:52:00 DIS Emergency CHRISSY WYATT MD [facility] BACK PAIN [id number] 09/13/2014 19:21:00 09/13/2014 21:22:00 DIS Emergency CAMILLE JARRELL DO [facility] BACK PAIN [id number] 07/30/2014 19:13:00 07/30/2014 21:10:00 DIS Emergency FRANCISCO CORRALES CERTIFIED LEGAL SECRETARY SPECIALIST [facility] ER NECK PAIN [id number] 12/07/2013 09:12:00 12/07/2013 11:47:00 DIS Emergency ABAD RODRIGUEZ MD [facility] ER POSS UTI [id number] 08/30/2013 09:31:00 08/30/2013 23:59:59 CLS Outpatient ABAD RODRIGUEZ MD [facility] ROUTINE [id number] 02/07/2013 12:32:00 02/07/2013 23:59:59 CLS Outpatient MODESTO ALSTON MD [facility] RAD URINARY RETENTION, RECURRENT UTI [id number] 01/01/2013 02:46:00 01/01/2013 06:31:00 DIS Emergency NABIL ANDERSON MD [facility] ER ABD PAIN [id number] 12/30/2012 11:36:00 12/30/2012 15:17:00 DIS Emergency ABAD RODRIGUEZ MD [facility] ER POSS UTI/KIDNEY STONE [id number] 10/12/2012 11:13:00 10/12/2012 23:59:59 CLS Outpatient ABAD RODRIGUEZ MD [facility] LAB DYSURIA [id number] 09/21/2012 13:04:00 09/21/2012 18:02:00 DIS Emergency NABIL ANDERSON MD [facility] ER UTI SYMPTOMS [id number] 09/01/2012 11:57:00 09/01/2012 13:05:00 DIS Emergency NABIL ANDERSON MD [facility] ER UTI SYMPTOMS [id number] 08/15/2012 06:04:00 08/15/2012 12:17:00 DIS Outpatient SUNG ELMORE DEMARCUS Q [facility] SDC HALLX RIDGID RIGHT [id number] 08/03/2012 12:47:00 08/03/2012 23:59:59 CLS Outpatient USNG DPM DEMARCUS Q [facility] PREOP HALLX RIDGID RIGHT [id number] 08/01/2012 03:29:00 08/01/2012 05:04:00 DIS Emergency ARMANDO SCHWARTZ MD [facility] ER SOA [id number] 09/14/2014 13:53:00 Document Registration [id number] 09/14/2014 13:53:00 Document Registration [id number] 09/14/2014 13:53:00 Document Registration [id number] 09/14/2014 13:53:00 Document Registration [id number] 09/14/2014 13:53:00 Document Registration [id number] 09/14/2014 13:53:00 Document Registration [id number] 09/14/2014 13:53:00 Document Registration [id number] 09/14/2014 13:53:00 Document Registration [id number] 09/14/2014 13:53:00 Document Registration [id number] 09/14/2014 13:53:00 Document Registration [id number] 09/14/2014 13:53:00 Document Registration [id number] 07/14/2012 12:42:00 Document Registration [id number] 06/07/2012 14:30:00 Document Registration [id number] 04/26/2012 13:28:00 Document Registration [id number] 04/14/2012 19:55:00 Document Registration [id number] 03/31/2012 15:26:00 Document Registration [id number] 03/07/2012 13:49:00 Document Registration [id number] 01/16/2012 14:03:00 Document Registration [id number] 01/01/2012 11:44:00 Document Registration [id number] 11/19/2011 14:47:00 Document Registration [id number] 11/02/2011 12:21:00 Document Registration [id number] 10/02/2011 11:46:00 Document Registration [id number] 09/16/2011 11:34:00 Document Registration [id number] 08/05/2011 12:32:00 Document Registration [id number] 07/30/2011 11:59:00 Document Registration [id number] 06/26/2011 15:06:00 Document Registration [id number] 04/30/2011 13:46:00 Document Registration [id number] 04/08/2011 13:20:00 Document Registration [id number] 03/27/2011 11:39:00 Document Registration [id number] 03/07/2011 11:33:00 Document Registration [id number] 01/26/2011 13:18:00 Document Registration [id number] 12/01/2010 14:12:00 Document Registration [id number] 10/26/2010 10:07:00 Document Registration [id number] 09/30/2010 12:48:00 Document Registration [id number] 06/26/2010 18:14:00 Document Registration [id number] 06/05/2010 19:12:00 Document Registration [id number] 05/10/2010 22:39:00 Document Registration [id number] 04/11/2010 14:25:00 Document Registration [id number] 03/19/2010 22:29:00 Document Registration [id number] 03/15/2010 17:01:00 Document Registration [id number] 02/07/2010 08:38:00 Document Registration [id number] 01/04/2010 09:23:00 Document Registration [id number] 11/29/2009 05:35:00 Document Registration [id number] 10/24/2009 07:58:00 Document Registration [id number] 09/17/2009 14:55:00 Document Registration [id number] 09/10/2009 14:46:00 Document Registration [id number] 05/08/2009 13:11:00 Document Registration [id number] 01/02/2015 11:01:21 ACT Document Registration [id number] 01/01/2016 13:06:00 Document Registration [id number] 06/10/2012 08:31:00 06/10/2012 23:59:59 CLS Outpatient [id number] 06/10/2012 08:31:00 Document Registration [id number] 08/03/2017 09:20:00 08/03/2017 23:59:59 CLS Outpatient LAURIE MAHAJAN APRN [facility]
[2018-01-22 14:49] LABS: INR 1.1 (0.8-1.4); PROTHROMBIN TIME PATIENT 13.8 SEC (12.2-14.7)
[2018-01-22 14:58] LABS: ALANINE AMINOTRANSFERASE 44 U/L (0-55); ALKALINE PHOSPHATASE 112 U/L (40-136); BILIRUBIN,TOTAL 0.4 MG/DL (0.1-1.0); BUN/CREATININE RATIO 18; CALCIUM 9.9 MG/DL (8.5-10.1); CARBON DIOXIDE 24 MMOL/L (21-32); CHLORIDE 94 MMOL/L (98-107); CREATININE SERUM 0.85 MG/DL (0.60-1.30); GFR ESTIMATED > 60; GLUCOSE 96 MG/DL (70-105); POTASSIUM 3.3 MMOL/L (3.6-5.0); SODIUM 135 MMOL/L (135-145)
[2018-01-22 15:02] LABS: BAND NEUTROPHILS 2 %; BASOPHILS % (MANUAL) 0 %; EOSINOPHILS % (MANUAL) 0 %; LYMPHOCYTES % (MANUAL) 33 %; MONOCYTES % (MANUAL) 8 %; NEUTROPHILS % (MANUAL) 53 %; RBC MORPH NORMAL; REACTIVE LYMPHOCYTES 4 %
--- NOTE | 2018-01-22 15:29 | ED Integumentary General ---
General Chief Complaint: Skin/Wound Problems Stated Complaint: POSSIBLE SPIDER BITE ON FACE Nursing Triage Note: PATIENT HERE FROM [facility] WITH CONCERNS ABOUT A WOUND ON HER LEFT SIDE OF HER FACE. STAFF FROM THE LONG-TERM STATES THAT SHE SAW THE DENTIST FOR CONCERNS OF AN ABCESS EARLIER IN THE WEEK. SHE HAD SWELLING BUT TODAY THE SIDE OF HER FACE IS OPEN AND DRAINING PUS. Source: patient Exam Limitations: no limitations History of Present Illness Date Seen by Provider: Jan 22, 2018 Time Seen by Provider: 14:10 Initial Comments Patient is a 67-year-old female who presents to the emergency room with complaints of a side of her face. She is a resident of [facility] and reports that they took her to [facility] for swelling that started in her face 4 days ago and she was placed on clindamycin 150 mg 3 times a day for a dental abscess on her lower left side. She reports that over the last day the swelling became worse and started to open up and drain on her left side of her face. On exam there is significant swelling that extends down to her neck and clavicle area and the wound is open and draining today. Timing/Duration: getting worse (last 4 days.), other Location: face Possible Cause: no cause identified Associated Symptoms: fever, swelling/mass/lumps Allergies and Home Medications Allergies Coded Allergies: cephalexin (Verified Allergy, Mild, RASH, 06/30/17) Penicillins (Verified Allergy, Unknown, 12/07/13) Sulfa (Sulfonamide Antibiotics) (Unverified Allergy, Unknown, 12/07/13) Home Medications Atenolol 25 Mg Tablet, 25 MG PO BID, (Reported) Ciprofloxacin HCl 500 Mg Tablet, 500 MG PO BID Prescribed by: RAFAELA SKAGGS on 06/30/172208 Cyclobenzaprine Hcl 10 Mg Tablet, 1 EACH PO Q8H PRN for SPASMS Prescribed by: CHRISSY WYATT on 09/18/14 0953 Cyclobenzaprine Hcl 5 Mg Tablet, 1 EACH PO Q8HR PRN PRN for SPASMS Prescribed by: SHERI DANIEL on 10/05/14 1546 Duloxetine Hcl 60 Mg Capsule.dr, 60 MG PO DAILY, (Reported) Estradiol 42.5 Gm Cream.appl, 1 GM VG HS, (Reported) INSERT OR APPLY TO VAGINAL AREA AT BEDTIME Hydrochlorothiazide 12.5 Mg Tablet, 12.5 MG PO BID, (Reported) Hydrocodone Bit/Acetaminophen 1 Each Tablet, 1 EACH PO Q4-6HRS PRN, (Reported) MAY TAKE 1 OR 2 TABS BY MOUTH EVERY 4-6 HRS NEEDED FOR PAIN. DO NOT EXCEED 3000 MG TYLENOL(ACETAMINOPHEN)IN A 24 HR PERIOD. Hydrocodone Bit/Acetaminophen 1 Each Tablet, 1 EACH PO Q4-6HR PRN for PAIN Prescribed by: SHERI DANIEL on 10/05/14 1702 Lansoprazole 30 Mg Capsule.dr, 30 MG PO DAILY, (Reported) Levofloxacin 250 Mg Tablet, 250 MG PO DAILY Prescribed by: CHRISSY WYATT on 07/19/15 1825 Meloxicam 7.5 Mg Tablet, 7.5 MG PO DAILY, (Reported) Nitrofurantoin/Nitrofuran Mac 100 Mg Capsule, 1 EACH PO BID Prescribed by: ABAD RODRIGUEZ on 12/07/13 1130 Phenazopyridine Hcl 200 Mg Tablet, 1 EACH PO TID Prescribed by: NABIL VELASCO on 09/21/12 1717 Polysaccharide Iron Complex 150 Mg Cap, 150 MG PO BID, (Reported) Prednisone 20 Mg Tablet, 40 MG PO DAILY Prescribed by: SHERI DANIEL on 10/05/14 1557 Pregabalin 225 Mg Capsule, 225 MG PO BID, (Reported) Tramadol Hcl 50 Mg Tablet, 50 MG PO TID PRN for PAIN Prescribed by: FRANCISCO CORRALES on 07/30/142058 Patient Home Medication List Home Medication List Reviewed: Yes Review of Systems Review of Systems Constitutional: see HPI; No chills, No fever EENTM: see HPI, dental problems Skin: see HPI, lesions (abscess and swelling to her left lower jaw that is seeping purulent yellow drainage.) All Other Systems Reviewed Negative Unless Noted: Yes Past Znhapat-Vratqj-Jxxric Hx Past Med/Social Hx: Reviewed Nursing Past Med/Soc Hx Patient Social History Alcohol Use: Denies Use Recreational Drug Use: No Smoking Status: Current Everyday Smoker Type Used: Cigarettes 2nd Hand Smoke Exposure: No Recent Foreign Travel: No Contact w/Someone Who Travel: No Recent Infectious Disease Expo: No Recent Hopitalizations: Yes (prior surgeries listed, multiple hospitalizations) Immunizations Up To Date Tetanus Booster (TDap): Unknown Date of Pneumonia Vaccine: Dec 07, 2011 Date of Influenza Vaccine: Feb 04, 2012 Seasonal Allergies Seasonal Allergies: No Past Medical History Surgeries: Yes (listed) Appendectomy, Bladder Surgery, Hysterectomy, Orthopedic Respiratory: No Cardiac: No Neurological: Yes Concussion, Neuropathy 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 Sexually Transmitted Disease: No HIV/AIDS: No Bladder Infection, Kidney Stones, UTI-Chronic Gastrointestinal: Yes Irritable Bowel Musculoskeletal: Yes Osteoporosis, Chronic Back Pain Endocrine: No Diabetes, Non-Insulin dep Hearing Impairment: Hard of Hearing Cancer: No Psychosocial: Yes Depression Integumentary: No Blood Disorders: Yes Adverse Reaction/Blood Tranf: No Family Medical History Reviewed Nursing Family Hx No Pertinent Family Hx Physical Exam Vital Signs Vital Signs - First Documented 01/22/18 14:10 Temp 98.9 Pulse 97 Resp 20 B/P (MAP) 120/72 (88) Pulse Ox 94 O2 Delivery Room Air Capillary Refill : Less Than 3 Seconds General Appearance: WD/WN, no apparent distress HEENT: PERRL/EOMI, TMs normal, pharynx normal, other (dental carries and swelling to left bottom posterior molar) Neck: full range of motion, supple, other (swelling to her left soft tissue on her neck that extents to her left clavical) Cardiovascular: normal peripheral pulses, regular rate, rhythm, no edema, no gallop, no JVD, no murmur Respiratory: chest non-tender, lungs clear, normal breath sounds, no respiratory distress, no accessory muscle use Skin Problem Location: face Skin Problem Character: abscess (left jaw area see images), drainage (yellow purulent foul-smelling drainage.), erythema Progress/Results/Core Measures Results/Orders Lab Results Laboratory Tests Test 01/22/18 14:16 01/22/18 16:28 Range/Units White Blood Count 16.9 H 4.3-11.0 10^3/uL Red Blood Count 4.55 4.35-5.85 10^6/uL Hemoglobin 13.7 11.5-16.0 G/DL Hematocrit 40 35-52 % Mean Corpuscular Volume 88 80-99 FL Mean Corpuscular Hemoglobin 30 25-34 PG Mean Corpuscular Hemoglobin Concent 34 32-36 G/DL Red Cell Distribution Width 12.8 10.0-14.5 % Platelet Count 605 H 130-400 10^3/uL Mean Platelet Volume 9.0 7.4-10.4 FL Neutrophils (%) (Auto) 60 42-75 % Lymphocytes (%) (Auto) 30 12-44 % Monocytes (%) (Auto) 9 0-12 % Eosinophils (%) (Auto) 1 0-10 % Basophils (%) (Auto) 0 0-10 % Neutrophils # (Auto) 10.1 H 1.8-7.8 X 10^3 Lymphocytes # (Auto) 5.2 H 1.0-4.0 X 10^3 Monocytes # (Auto) 1.5 H 0.0-1.0 X 10^3 Eosinophils # (Auto) 0.1 0.0-0.3 10^3/uL Basophils # (Auto) 0.0 0.0-0.1 10^3/uL Neutrophils % (Manual) 53 % Lymphocytes % (Manual) 33 % Monocytes % (Manual) 8 % Eosinophils % (Manual) 0 % Basophils % (Manual) 0 % Band Neutrophils 2 % Reactive Lymphocytes 4 % Blood Morphology Comment NORMAL Prothrombin Time 13.8 12.2-14.7 SEC INR Comment 1.1 0.8-1.4 Activated Partial Thromboplast Time 33 24-35 SEC Sodium Level 135 135-145 MMOL/L Potassium Level 3.3 L 3.6-5.0 MMOL/L Chloride Level 94 L 98-107 MMOL/L Carbon Dioxide Level 24 21-32 MMOL/L Anion Gap 17 H 5-14 MMOL/L Blood Urea Nitrogen 15 7-18 MG/DL Creatinine 0.85 0.60-1.30 MG/DL Estimat Glomerular Filtration Rate > 60 BUN/Creatinine Ratio 18 Glucose Level 96 70-105 MG/DL Lactic Acid Level 4.05 *H 3.18 *H 0.50-2.00 MMOL/L Calcium Level 9.9 8.5-10.1 MG/DL Corrected Calcium 9.9 8.5-10.1 MG/DL Total Bilirubin 0.4 0.1-1.0 MG/DL Aspartate Amino Transf (AST/SGOT) 42 H 5-34 U/L Alanine Aminotransferase (ALT/SGPT) 44 0-55 U/L Alkaline Phosphatase 112 40-136 U/L Total Protein 8.0 6.4-8.2 GM/DL Albumin 4.0 3.2-4.5 GM/DL My Orders Orders - JESUS ALDRIDGE Cbc With Automated Diff (01/22/18 14:19) Comprehensive Metabolic Panel (01/22/18 14:19) Blood Culture (01/22/18 14:19) Protime With Inr (01/22/18 14:19) Partial Thromboplastin Time (01/22/18 14:19) Saline Lock/Iv-Start (01/22/18 14:19) Saline Lock/Iv-Start (01/22/18 14:19) Wound Culture (01/22/18 14:19) Lactic Acid Analyzer (01/22/18 14:19) Ct Neck (Soft Tissue) W (01/22/18 14:22) Iohexol Injection (Omnipaque 350 Mg/Ml 1 (01/22/18 14:30) Ns (Ivpb) (Sodium Chloride 0.9%) (01/22/18 14:30) Manual Differential (01/22/18 14:16) Meropenem (Merrem 500 Mg) (01/22/18 16:30) Ns Iv 1000 Ml (Sodium Chloride 0.9%) (01/22/18 16:30) Fentanyl Injection (Sublimaze Injection (01/22/18 16:30) Medications Given in ED Current Medications Medications Dose Ordered Sig/Santos Route Start Time Stop Time Status Last Admin Dose Admin Fentanyl Citrate 50 mcg ONCE ONCE IVP 01/22/18 16:30 01/22/18 16:31 DC 01/22/18 16:39 50 MCG Iohexol 75 ml ONCE ONCE IV 01/22/18 14:30 01/22/18 14:32 DC 01/22/18 15:13 75 ML Meropenem 500 mg/ Sodium Chloride 100 ml @ 200 mls/hr ONCE ONCE IV 01/22/18 16:30 01/22/18 16:59 DC 01/22/18 16:38 200 MLS/HR Sodium Chloride 250 ml ONCE ONCE IV 01/22/18 14:30 01/22/18 14:32 DC 01/22/18 15:13 80 ML Vital Signs/I&O 01/22/18 14:10 Temp 98.9 Pulse 97 Resp 20 B/P (MAP) 120/72 (88) Pulse Ox 94 O2 Delivery Room Air Blood Pressure Mean: 88 Progress Progress Note : Time: 14:30 Progress Note The patient was given 2 L bolus based on her ideal body weight of 60 kg. She was started on meropenem in the emergency room and vancomycin was ordered for upstairs. I have discussed laboratory and imaging studies with Dr. Hood and she agrees with plans for admission. I have also informed her that I called and left a message for Dr. Bush. She agrees with plans for admission, she will also try to contact Dr. Bush for surgical consult. The patient was informed of plans for admission and agrees with plan of care. Diagnostic Imaging Diagonstic Imaging: CT Plain Films/CT/US/NM/MRI: facial bones Comments NAME: [facility] REC#: [id number] PT STATUS: REG ER : 1950 PHYSICIAN: JESUS ALDRIDGE ADMIT DATE: 01/22/18/ER Signed Date of Exam: 01/22/18 CT NECK (SOFT TISSUE) W Procedure: CT neck soft tissue with contrast. Technique: Multiple contiguous axial images were obtained through the neck after the administration of contrast. Indication: Left neck pain and palpable mass for one day. Comparison: None. Discussion: Marked inflammatory changes are noted involving the left submandibular region extending to the skin surface. Inflammatory changes abut the left submandibular gland though the origin of the inflammatory changes appears to be centered on the left mandible and is likely odontogenic in nature. The posterior most molar on the left mandible appears to have eroded through the cortex consistent with dental caries and associated abscess. Along the medial aspect of the left mandible, there is a 2.8 x 1.1 cm fluid collection which extends inferiorly, consistent with abscess. The visualized orbits, paranasal sinuses and intracranial contents are unremarkable. Postoperative changes of previous right temporal craniotomy are noted. Postoperative changes are noted within the right mastoid air cells. The left mastoid air cells are well-aerated. No aerodigestive tract abnormality identified. The carotid arteries bifurcate midneck and are patent. Shotty appearing lymph nodes are present. Mild degenerative disease is noted within the cervical spine. No acute osseous abnormality otherwise. Impression: Odontogenic infection involving the posterior most left mandibular molar which has eroded through the medial cortex of the mandible and has an associated abscess, as discussed above. Dictated by: Dictated on workstation # [id number] Dict: 01/22/18 1541 Trans: 01/22/18 1656 Interpreted by: ELAN SNYDER MD Electronically signed by: ELAN SNYDER MD 01/22/18 1656 Reviewed: Reviewed by Me Departure Communication (Admissions) Time/Spoke to Admitting Phy: 15:00 DR. HOOD Impression Primary Impression: Dental abscess Disposition: ADMITTED INPATIENT Condition: Stable Admissions Decision to Admit Reason: Admit from ER (General) Decision to Admit/Date: Jan 22, 2018 Time/Decision to Admit Time: 15:00 Departure-Patient Inst. Referrals: ELAN DUMONT MD (PCP/Family) Primary Care Physician Images Head/Face 1 - Other-See Progress Note 2 - Edema, Swelling Mouth/Nose 1 - Caries, Fracture Tooth, Swelling, Tenderness JESUS ALDRIDGE Jan 22, 2018 15:29
--- NOTE | 2018-01-22 15:52 | Diagnostic Imaging Report ---
Procedure: CT neck soft tissue with contrast. Technique: Multiple contiguous axial images were obtained through the neck after the administration of contrast. Indication: Left neck pain and palpable mass for one day. Comparison: None. Discussion: Marked inflammatory changes are noted involving the left submandibular region extending to the skin surface. Inflammatory changes abut the left submandibular gland though the origin of the inflammatory changes appears to be centered on the left mandible and is likely odontogenic in nature. The posterior most molar on the left mandible appears to have eroded through the cortex consistent with dental caries and associated abscess. Along the medial aspect of the left mandible, there is a 2.8 x 1.1 cm fluid collection which extends inferiorly, consistent with abscess. The visualized orbits, paranasal sinuses and intracranial contents are unremarkable. Postoperative changes of previous right temporal craniotomy are noted. Postoperative changes are noted within the right mastoid air cells. The left mastoid air cells are well-aerated. No aerodigestive tract abnormality identified. The carotid arteries bifurcate midneck and are patent. Shotty appearing lymph nodes are present. Mild degenerative disease is noted within the cervical spine. No acute osseous abnormality otherwise. Impression: Odontogenic infection involving the posterior most left mandibular molar which has eroded through the medial cortex of the mandible and has an associated abscess, as discussed above. Dictated by: Dictated on workstation # [id number]
[2018-01-22] MEDS ORDERED: MEROPENEM 500 MG in NS (IVPB) 100 ML IV ONE (16:30)
[2018-01-22] MEDS ORDERED: fentaNYL INJECTION 100 MCG/2 ML AMP IVP ONE (16:30)
[2018-01-22] MEDS: NS IV 1000 ML 1,000 ML IV SCH ×3 (16:37→22:57)
--- OUTSIDE RECORDS SUMMARY | 2018-01-22 17:27 | XMS REPORT | Clinical Summary ---
Author Author [facility] Organization [facility] Address Unknown Phone Unavailable Care Team Providers Care Day Porter Name Role Phone Nicholas Harper MD PCP [...] in the Health Information Management department at [phone] for further assistance in locating additional records.[facility] Allergies Active Allergy Reactions Severity Noted Date [...]
[2018-01-22 17:45] VITALS: BP 135/60
--- OUTSIDE RECORDS SUMMARY | 2018-01-22 17:50 | XMS REPORT | Continuity of Care Document ---
Author Author [facility] Address Unknown Phone Unavailable Allergies Active Description Code Type Severity Reaction Onset Reported/Identified Relationship to Patient Clinical Status Yes Penicillins Drug Allergy N/A N/A 10/28/2011 Yes Sulfa(Sulfonamide Antibiotics) Drug Allergy N/A N/A 10/28/2011 Yes Penicillins Drug Allergy 10/28/2011 Yes Sulfa(Sulfonamide Antibiotics) Drug Allergy 10/28/2011 Yes Penicillins [id number] Drug Allergy Unknown N/A 12/07/2013 Yes Sulfa (Sulfonamide Antibiotics) [id number] Drug Allergy Unknown N/A 2013 Yes Penicillins 476 Drug Allergy N/ A N/A 03/04/2016 Confirmed or Verified Yes Sulfa (Sulfonamide Antibiotics) 491 Drug Allergy N/A N/A 03/04/2016 Confirmed or Verified Yes cephalexin [id number] Drug Allergy Mild RASH 06/30/2017 Medications There [...] FEM GENITAL SYMPTOMS NOS 07/30/2014 FRANCISCO CORRALES PLANT TECHNICIAN/CONTROL ROOM OPERATOR Ot 723.1 CERVICALGIA 07/30/2014 FRANCISCO CORRALES PLANT TECHNICIAN/CONTROL ROOM OPERATOR Ot 826.0 FX PHALANX, FOOT-CLOSED 07/30/2014 FRANCISCO CORRALES PLANT TECHNICIAN/CONTROL ROOM OPERATOR Ot E000.8 OTHER EXTERNAL CAUSE STATUS 07/30/2014 FRANCISCO CORR[employer] PL[employer] TECHNICIAN/CONTROL ROOM OPERATOR Ot E849.0 ACCIDENT IN HOME 07/30/2014 FRANCISCO [employer] PLANT TECHNICIAN/CONTROL ROOM OPERATOR Ot E885.9 FALL FROM SLIPPING, TRIPPING, OR [...] ABAD Rain Ot V57.1 10/19/2014 FRANCISCO CORRALES PLANT TECHNICIAN/CONTROL ROOM OPERATOR Ot 923.00 CONTUSION SHOULDER REG 10/19/2014 FRANCISCO CORRAL[employer] PLANT TECHNICIAN/CONTROL ROOM OPERATOR Ot 959.2 SHLDR/UPPER ARM INJ NOS 10/19/2014 FRANCISCO [employer] PL[employer] TECHNICIAN/CONTROL ROOM OPERATOR Ot E000.8 OTHER EXTERNAL CAUSE STATUS 10/19/2014 FRANCISCO [employer] PL[employer] TECHNICIAN/CONTROL ROOM OPERATOR Ot E849.0 ACCIDENT IN HOME 10/19/2014 FRANCISCO [employer] PLANT TECHNICIAN/CONTROL ROOM OPERATOR Ot E888.1 FALL STRIKING OBJECT NEC 10/23/2014 SHERI PATTERSON Ot 720.2 10/23/2014 SHERI PATTERSON Ot 724.2 11/06/2014 ABAD RODRIGUEZ MD Ot 724.2 11/06/2014 ABAD ORDRIGUEZ MD Ot V57.1 11/06/2014 ABAD RODRGIUEZ MD Ot 724.2 11/06/2014 ABAD RODRIGUEZ MD [...] GIDDINESS 07/19/2015 CHRISSY WYATT MD Ot 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 07/22/2015 CHRISSY WYATT MD, Ot F17.210 NICOTINE DEPENDENCE, CIGARETTES, UNCOMPL 07/22/2015 CHRISSY WYATT MD Ot N39.0 URINARY TRACT INFECTION, SITE NOT SPECIF 07/22/2015 CHRISSY WYATT MD, Ot R42 DIZZINESS AND GIDDINESS 07/22/2015 CHRISSY WYATT MD, Ot Z79.52 LONG-TERM (CURRENT) USE OF SYSTEMIC STER 03/11/2016 TARA KRISHNAN MD B96.20 Unsp Escherichia coli as the cause of diseases classd elswhr 03/11/2016 TARA KRISHNAN MD D72.829 Elevated white blood cell count, unspecified 03/11/2016 TARA KRISHNAN MD E11.9 Type 2 diabetes mellitus without complications 03/11/2016 TARA KRISHNAN MD E87.6 Hypokalemia 03/11/2016 TARA KRISHNAN MD F02.81 Dementia in [facility] diseases classd elswhr w behavioral disturb 03/11/2016 [...] LATE EFFECT ARM FX 11/30/2016 Ot 996.49 [facility] COMPL OF OTH PRIMER CHARGER ORTHOPEDIC 11/30/2016 Ot E929.3 LATE EFF ACCIDENTAL FALL 11/30/2016 SUNG DPM, DEMARCUS Q Ot 735.2 HALLUX RIGIDUS 11/30/2016 SUNG DPM, DEMARCUS Q Ot V72.63 PRE-PROCEDURAL LABORATORY EXAMINATION 11/30/2016 BAAD RODRIGUEZ MD Ot 788.1 DYSURIA 11/30/2016 [place] [...] LATE EFFECT ARM FX 12/09/2016 Ot 996.49 [facility] COMPL OF OTH PRIMER CHARGER ORTHOPEDIC 12/09/2016 Ot E929.3 LATE EFF ACCIDENTAL [...] ABN RADLGC FINDINGS ON DX IMAG[facility] 12/09/2016 Ot 733.82 NONUNION OF FRACTURE 12/09/2016 Ot 905.2 LATE EFFECT ARM FX 12/09/2016 Ot 996.49 [facility] COMPL OF OT PRIMER CHARGER ORTHOPEDIC 12/09/2016 Ot E929.3 LATE EFF ACCIDENTAL [...] ABN RADLGC FINDINGS ON DX IMAGING OF [facility] 12/22/2016 LAURIE MAHAJAN Ot K76.0 FATTY (CHANGE OF) LIVER, NOT ELSEWHERE C 12/22/2016 LAURIE MAHAJAN Ot N28.9 DISORDER OF KIDNEY AND URETER, UNSPECIFI 12/22/2016 ELAN DUMONT MD Ot R93.49 ABN RADLGC FINDINGS ON DX IMAGING [facility] 06/21/2017 Ot 733.82 NONUNION OF FRACTURE 06/21/2017 Ot 905.2 LATE EFFECT ARM FX 06/21/2017 Ot 996.49 [facility] COMPL OF OT PRIMER CHARGER ORTHOPEDIC 06/21/2017 Ot E929.3 LATE EFF ACCIDENTAL [...] ABN RADLGC FINDINGS ON DX IM[facility] 06/22/2017 LAURIE MAHAJAN Ot N60.01 SOLITARY CYST [...] Ot 788.30 UNSPECIFIED URINARY INCONTINENCE 06/28/2017 ABAD RODRIGUEZ MD Ot 272.4 HYPERLIPIDEMIA NEC/NOS 06/28/2017 ABAD [...] MAJOR DEPRESSIVE DISORDER, SINGLE EPISOD 06/30/2017 RAFAELA SKGAGS MD Ot M81.0 AGE-RELATED OSTEOPOROSIS W/O CURRENT PAT 06/30/2017 RAFAELA SKAGSG MD Ot N39.0 URINARY TRACT INFECTION, SITE NOT SPECIF 06/30/2017 RAFAELA SKAGGS MD Ot R11.0 NAUSEA 06/30/2017 RAFAELA SKAGGS MD Ot Z79.52 LONG-TERM (CURRENT) USE OF SYSTEMIC STER 06/30/2017 RAFAELA [...] ALLERGY STATUS TO OTHER ANTIBIOTIC AGENT 06/30/2017 RAAFELA SKAGGS MD Ot Z88.2 ALLERGY STATUS TO [...] NAUSEA 07/02/2017 RAFAELA SKAGGS MD Ot 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 07/02/2017 RAFAELA [...] NAUSEA 07/02/2017 RAFAELA SKAGGS MD, Ot Z79.52 LONG-TERM (CURRENT) USE OF SYSTEMIC STER 07/02/2017 RAFAELA [...] MAHAJAN Ot R30.0 DYSURIA 08/20/2017 ZAINA, LAURIE PHOTO STYLIST Ot R35.0 FREQUENCY OF MICTURITION 08/20/2017 LAURIE MAHAJAN PHOTO STYLIST Ot R39.15 URGENCY OF URINATION 09/02/2017 LAURIE MAHAJAN PHOTO STYLIST Ot E11.9 TYPE 2 DIABETES MELLITUS WITHOUT COMPLIC 09/02/2017 LAURIE MAHAJAN PHOTO STYLIST Ot R30.0 DYSURIA 09/02/2017 LAURIE MAHAJANP Ot [...] Procedures Code Description [place] [address] XRAY FOOT RIGHT 2 VIEWS 06/10/2012 Results [...] 321 10^3u 142-424 MPV 11.3 FL 9.4-12.4 [place] # 1.32 10^3u 0.0-1.0 [place] 3.0 RBC 4.60 10^6u 4.04-6.13 [place] % 8.9 % 0-12 RDW 14.1 % [...] Urobilinogen 0.2 0.2-1.0 Urine RBC N3-5 Specific [place] 1.015 1.010-1.020 Urine WBC N21-30 Urine Bacteria [...] 289 10^3u 142-424 MPV 11.2 FL 9.4-12.4 [place] # 1.34 10^3u 0.0-1.0 RBC 4.51 10^6u 4.04-6.13 [place] % 8.7 % 0-12 RDW 14.0 % [...] 300 10^3u 142-424 MPV 10.9 FL 9.4-12.4 [place] # 1.26 10^3u 0.0-1.0 RBC 4.68 10^6u 4.04-6.13 [place] % 9.0 % 0-12 RDW 14.0 % [...] 290 10^3u 142-424 MPV 10.9 FL 9.4-12.4 [place] # 1.13 10^3u 0.0-1.0 RBC 4.55 10^6u 4.04-6.13 [place] % 10.3 % 0-12 RDW 13.8 % [...] 257 10^3u 142-424 MPV 11.2 FL 9.4-12.4 [place] # 1.24 10^3u 0.0-1.0 RBC 4.17 10^6u 4.04-6.13 [place] % 12.2 % 0-12 RDW 13.7 % [...] 256 10^3u 142-424 MPV 11.0 FL 9.4-12.4 [place] # 1.20 10^3u 0.0-1.0 RBC 4.25 10^6u 4.04-6.13 [place] % 11.5 % 0-12 RDW 13.6 % [...] culture - 12/06/16 11:48 Bacterial urine culture [id number] NRG COLONY COUNT 10,000/ML - 100,000/ML NRG FTX;REPORTABLE PLUS, NRG FREE TEXT ENTRY 2 MIXED GRAM POSITIVES <10,000/ML NRG FREE TEXT ENTRY 3 SENSITIVITIES REPORTED 12/08/16 8:15 [facility] Bacterial susceptibility panel - 12/06/16 [...] susceptibility test by minimum inhibitory concentration - [facility] Bacterial susceptibility panel - 12/06/16 [...] susceptibility test by minimum inhibitory concentration 2 [facility] Bacterial susceptibility panel - 12/06/16 [...] culture - 06/23/17 13:50 Bacterial urine culture [id number] NRG COLONY COUNT >100,000/ML NRG FTX;REPORTABLE SENSITIVITY [...] culture - 06/30/17 20:50 Bacterial urine culture [id number] NRG COLONY COUNT >100,000/ML NRG FTX;REPORTABLE SENSITIVITY [...] culture - 08/18/17 08:21 Bacterial urine culture [id number] NRG COLONY COUNT >100,000/ML NRG FTX;REPORTABLE SENT TO [facility] 08/18/17 16:30 NRG FREE TEXT ENTRY 2 SENSITIVITY REPORTED 08/20/17 09:05 NRG [facility] Sensitivity Panel - 08/18/17 08:21 Gentamicin susceptibility [...] in urine sediment by light microscopy [facility] Urine microalbumin measurement by test strip (mass/volume) - 08/18/17 13:00 Urine creatinine measurement (mass/volume) 71 % NR Microalbumin [mass/volume] in urine 20.5 % 0.0-20.0 Microalbumin/creatinine [ratio] in urine 28.9 mg/g{Cre} 0.0-30.0 Complete blood count (CBC) with automated white blood cell (WBC) differential - 01/22/18 14:16 Blood leukocytes automated count (number/volume) 16.9 10*3/uL 4.3-11.0 Blood erythrocytes automated count (number/volume) 4.55 10*6/uL 4.35-5.85 Venous blood hemoglobin measurement (mass/volume) 13.7 g/dL 11.5-16.0 Blood hematocrit (volume fraction) 40 % 35-52 Automated erythrocyte mean corpuscular volume 88 [foz_us] 80-99 Automated erythrocyte mean corpuscular hemoglobin (mass per erythrocyte) 30 pg 25-34 Automated erythrocyte mean corpuscular hemoglobin concentration measurement ( mass/volume) 34 g/dL 32-36 Automated erythrocyte distribution width ratio 12.8 % 10.0-14.5 Automated blood platelet count (count/volume) 605 10*3/uL 130-400 Automated blood platelet mean volume measurement 9.0 [foz_us] 7.4-10.4 Automated blood neutrophils/100 leukocytes 60 % 42-75 Automated blood lymphocytes/100 leukocytes 30 % 12-44 Blood monocytes/100 leukocytes 9 % 0-12 Automated blood eosinophils/100 leukocytes 1 % 0-10 Automated blood basophils/100 leukocytes 0 % 0-10 Blood neutrophils automated count (number/volume) 10.1 10*3 1.8-7.8 Blood lymphocytes automated count (number/volume) 5.2 10*3 1.0-4.0 Blood monocytes automated count (number/volume) 1.5 10*3 0.0-1.0 Automated eosinophil count 0.1 10*3/uL 0.0-0.3 Automated blood basophil count (count/volume) 0.0 10*3/uL 0.0-0.1 PT panel in platelet poor plasma by coagulation assay - 01/22/18 14:16 Prothrombin time (PT) in platelet poor plasma by coagulation assay 13.8 s 12.2-14.7 INR in platelet poor plasma or blood by coagulation assay 1.1 0.8-1.4 Activated partial thromboplastin time (aPTT) in platelet poor plasma bycoagulation assay - 01/22/18 14:16 Activated partial thromboplastin time (aPTT) in platelet poor plasma bycoagulation assay 33 s 24-35 Blood lactic acid measurement (moles/volume) - 01/22/18 14:16 Blood lactic acid measurement (moles/volume) 4.05 mmol/L 0.50-2.00 Comprehensive metabolic panel - 01/22/18 14:16 Serum or plasma sodium measurement (moles/volume) 135 mmol/L 135-145 Serum or plasma potassium measurement (moles/volume) 3.3 mmol/L 3.6-5.0 Serum or plasma chloride measurement (moles/volume) 94 mmol/L 98-107 Carbon dioxide 24 mmol/L 21-32 Serum or plasma anion gap determination (moles/volume) 17 mmol/L 5-14 Serum or plasma urea nitrogen measurement (mass/volume) 15 mg/dL 7-18 Serum or plasma creatinine measurement (mass/volume) 0.85 mg/dL 0.60-1.30 Serum or plasma urea nitrogen/creatinine mass ratio 18 NRG Serum or plasma creatinine measurement with calculation of estimated glomerular filtration rate > NRG Serum or plasma glucose measurement (mass/volume) 96 mg/dL 70-105 Serum or plasma calcium measurement (mass/volume) 9.9 mg/dL 8.5-10.1 Serum or plasma total bilirubin measurement (mass/volume) 0.4 mg/dL 0.1-1.0 Serum or plasma alkaline phosphatase measurement (enzymatic activity/volume) 112 U/L 40-136 Serum or plasma aspartate aminotransferase measurement (enzymatic activity/ volume) 42 U/L 5-34 Serum or plasma alanine aminotransferase measurement (enzymatic activity/volume ) 44 U/L 0-55 Serum or plasma protein measurement (mass/volume) 8.0 g/dL 6.4-8.2 Serum or plasma albumin measurement (mass/volume) 4.0 g/dL 3.2-4.5 CALCIUM CORRECTED 9.9 mg/dL 8.5-10.1 Blood manual differential performed detection - 01/22/18 14:16 Blood monocytes/100 leukocytes 8 % NRG Manual blood segmented neutrophils/100 leukocytes 53 % NRG Blood band neutrophils/100 leukocytes 2 % NRG Manual blood lymphocytes/100 leukocytes 33 % NRG Manual eosinophils/100 leukocytes in nose 0 % NRG Manual blood basophils/100 leukocytes 0 % NRG Blood lymphocytes variant/100 leukocytes 4 % NRG Blood erythrocyte morphology finding identification NORMAL NRG Serum or plasma lactate measurement (moles/volume) - 01/22/18 16:28 Serum or plasma lactate measurement (moles/volume) 3.18 mmol/L 0.50-2.00 Encounters ACCT No. Visit Date/Time Discharge Status Pt. Type Provider Facility Loc./Unit Complaint [id number] 03/04/2016 11:00:00 03/11/2016 10:45:00 DIS Inpatient EULOGIO KIRKPATRICK, TARA [facility] [id number] 01/13/2018 09:59:00 01/13/2018 23:59:59 CLS Outpatient BOO HERNANDEZ MD [facility] RAD LUMBAGO [id number] 10/07/2017 09:52:00 10/07/2017 23:59:59 CLS Outpatient LAURIE MAHAJAN [facility] RAD 3 MONTH F/U FOR LUMP [id number] 08/18/2017 13:35:00 08/18/2017 23:59:59 CLS Outpatient LAURIE MAHAJAN [facility] LABNPT UA REFLEX TO CULTURE, MICROALBUMIN [id number] 06/30/2017 18:30:00 06/30/2017 22:55:00 DIS Emergency SHARIFA KIRKPATRICK, RAFAELA [place] [facility] ER NAUSEA [id number] 06/23/2017 14:53:00 06/23/2017 23:59:59 CLS Outpatient ELAN DUMONT MD [facility] MLF [id number] 06/21/2017 09:14:00 06/21/2017 23:59:59 CLS Outpatient LAURIE MAHAJAN [facility] RAD BREAST MASS,RIGHT [id number] 2016 13:25:00 2016 23:59:59 CLS Outpatient ELAN DUMONT MD [facility] MLF POSSIBLE PYELONEPHRITIS SHOWN ON CT SCAN [id number] 12/01/2016 12:47:00 12/01/2016 23:59:59 CLS Outpatient LAURIE MAHAJAN [facility] RAD K43.9 [id number] 07/19/2015 15:03:00 07/19/2015 18:29:00 DIS Emergency CHRISSY WYATT MD [facility] ER FALL/WEAKNESS [id number] 04/04/2015 14:13:00 04/04/2015 17:36:00 DIS Emergency ABAD RODRIGUEZ MD [facility] ER DIARRHEA [id number] 03/13/2015 12:31:00 03/13/2015 23:59:59 CLS Outpatient OTHER, UNLISTED [facility] RAD DDD, RADICULOPATHY [id number] 01/02/2015 10:59:00 01/02/2015 23:59:59 CLS Outpatient ABAD RODRIGUEZ MD [facility] RAD SCREENING [id number] 11/07/2014 12:55:00 11/29/2014 09:31:00 DIS Outpatient ABAD RODRIGUEZ MD [facility] REHAB LOW BACK PAIN [id number] 10/19/2014 14:08:00 10/19/2014 16:37:00 DIS Emergency FRANCISCO CORRALES APRN [facility] ER FALL/RT SHOULDER PAIN [id number] 10/05/2014 14:41:00 10/05/2014 17:38:00 DIS Emergency SHERI PATTERSON [facility] ER BACK PAIN [id number] 09/18/2014 08:08:00 09/18/2014 09:52:00 DIS Emergency CHRISSY WYATT MD [facility] ER BACK PAIN [id number] 09/13/2014 19:21:00 09/13/2014 21:22:00 DIS Emergency CAMILLE JARRELL DO [facility] ER BACK PAIN [id number] 07/30/2014 19:13:00 07/30/2014 21:10:00 DIS Emergency FRANCISCO CORRALES APRN [facility] ER NECK PAIN [id number] 12/07/2013 09:12:00 12/07/2013 11:47:00 DIS Emergency ABAD RODRIGUEZ MD [facility] ER POSS UTI [id number] 08/30/2013 09:31:00 08/30/2013 23:59:59 CLS Outpatient ABAD RODRIGUEZ MD [facility] RAD ROUTINE [id number] 02/07/2013 12:32:00 02/07/2013 23:59:59 CLS Outpatient MODESTO ALSTON MD [facility] RAD URINARY RETENTION, RECURRENT UTI [id number] 01/01/2013 02:46:00 01/01/2013 06:31:00 DIS Emergency NABIL ANDERSON MD [facility] ER ABD PAIN [id number] 12/30/2012 11:36:00 12/30/2012 15:17:00 DIS Emergency ABAD RODRIGUEZ MD [facility] ER POSS UTI/KIDNEY STONE [id number] 10/12/2012 11:13:00 10/12/2012 23:59:59 CLS Outpatient ABAD RODRIGUEZ MD [facility] LAB DYSURIA [id number] 09/21/2012 13:04:00 09/21/2012 18:02:00 DIS Emergency NABIL ANDERSON MD [facility] ER UTI SYMPTOMS [id number] 09/01/2012 11:57:00 09/01/2012 13:05:00 DIS Emergency NABIL ANDERSON MD [facility] ER UTI SYMPTOMS [id number] 08/15/2012 06:04:00 08/15/2012 12:17:00 DIS Outpatient SUNG ELMORE DEMARCUS Q [facility] HALLX RIDGID RIGHT [id number] 08/03/2012 12:47:00 08/03/2012 23:59:59 CLS Outpatient SUNG DPM DEMARCUS Q [facility] PREOP HALLX RIDGID RIGHT [id number] 08/01/2012 03:29:00 08/01/2012 05:04:00 DIS Emergency LANA KIRKPATRICK, ARMANDO [place]airez [facility] ER SOA [id number] 01/22/2018 14:36:00 Document Registration [id number] 09/14/2014 13:53:00 Document Registration [id number] 09/14/2014 13:53:00 Document Registration [id number] 09/14/2014 13:53:00 Document Registration [id number] 09/14/2014 13:53:00 Document Registration [id number] 09/14/2014 13:53:00 Document Registration [id number] 09/14/2014 13:53:00 Document Registration [id number] 09/14/2014 13:53:00 Document Registration [id number] 09/14/2014 13:53:00 Document Registration [id number] 09/14/2014 13:53:00 Document Registration [id number] 09/14/2014 13:53:00 Document Registration [id number] 09/14/2014 13:53:00 Document Registration [id number] 07/14/2012 12:42:00 Document Registration [id number] 06/07/2012 14:30:00 Document Registration [id number] 04/26/2012 13:28:00 Document Registration [id number] 04/14/2012 19:55:00 Document Registration [id number] 03/31/2012 15:26:00 Document Registration [id number] 03/07/2012 13:49:00 Document Registration [id number] 01/16/2012 14:03:00 Document Registration [id number] 01/01/2012 11:44:00 Document Registration [id number] 11/19/2011 14:47:00 Document Registration [id number] 11/02/2011 12:21:00 Document Registration [id number] 10/02/2011 11:46:00 Document Registration [id number] 09/16/2011 11:34:00 Document Registration [id number] 08/05/2011 12:32:00 Document Registration [id number] 07/30/2011 11:59:00 Document Registration [id number] 06/26/2011 15:06:00 Document Registration [id number] 04/30/2011 13:46:00 Document Registration [id number] 04/08/2011 13:20:00 Document Registration [id number] 03/27/2011 11:39:00 Document Registration [id number] 03/07/2011 11:33:00 Document Registration [id number] 01/26/2011 13:18:00 Document Registration [id number] 12/01/2010 14:12:00 Document Registration [id number] 10/26/2010 10:07:00 Document Registration [id number] 09/30/2010 12:48:00 Document Registration [id number] 06/26/2010 18:14:00 Document Registration [id number] 06/05/2010 19:12:00 Document Registration [id number] 05/10/2010 22:39:00 Document Registration [id number] 04/11/2010 14:25:00 Document Registration [id number] 03/19/2010 22:29:00 Document Registration [id number] 03/15/2010 17:01:00 Document Registration [id number] 02/07/2010 08:38:00 Document Registration [id number] 01/04/2010 09:23:00 Document Registration [id number] 11/29/2009 05:35:00 Document Registration [id number] 10/24/2009 07:58:00 Document Registration [id number] 09/17/2009 14:55:00 Document Registration [id number] 09/10/2009 14:46:00 Document Registration [id number] 05/08/2009 13:11:00 Document Registration [id number] 01/02/2015 11:01:21 ACT Document Registration [id number] 01/01/2016 13:06:00 Document Registration [id number] 06/10/2012 08:31:00 06/10/2012 23:59:59 CLS Outpatient [id number] 06/10/2012 08:31:00 Document Registration [id number] 08/03/2017 09:20:00 08/03/2017 23:59:59 CLS Outpatient ZAINA [facility]ANLAURIE [facility]
[2018-01-22] MEDS ORDERED: VANCOMYCIN INJECTION 1,000 MG in NS (IVPB) 250 ML IV ONE (18:15)
[2018-01-22] MEDS ORDERED: NS (IVPB) 250 ML ONE (18:25)
[2018-01-22] MEDS ORDERED: VANCOMYCIN 1000 MG/VIAL ONE (18:25)
[2018-01-22] MEDS: fentaNYL INJECTION 100 MCG/2 ML AMP IVP PRN ×3 (18:48→22:57)
[2018-01-22 19:50] VITALS: BP 140/60
[2018-01-22] MEDS ORDERED: NS IV 1000 ML 1,000 ML ONE (20:49)
[2018-01-23] VITALS: BP 145/64
[2018-01-23] MEDS: fentaNYL INJECTION 100 MCG/2 ML AMP IVP PRN ×5 (01:27→21:06)
[2018-01-23 03:38] LABS: BASOPHILS % (AUTO) 0 % (0-10); EOSINOPHILS # (AUTO) 0.2 10^3/uL (0.0-0.3); EOSINOPHILS % (AUTO) 1 % (0-10); HEMATOCRIT 35 % (35-52); HEMOGLOBIN 11.8 G/DL (11.5-16.0); LYMPHOCYTES # (AUTO) 4.8 X 10^3 (1.0-4.0); LYMPHOCYTES % (AUTO) 31 % (12-44); MEAN CORPUSCULAR HEMOGLOBIN 30 PG (25-34); MEAN CORPUSCULAR HGB CONC 34 G/DL (32-36); MEAN CORPUSCULAR VOLUME 89 FL (80-99); MEAN PLATELET VOLUME 9.2 FL (7.4-10.4); MONOCYTES # (AUTO) 1.6 X 10^3 (0.0-1.0); MONOCYTES % (AUTO) 10 % (0-12); NEUTROPHILS # (AUTO) 8.9 X 10^3 (1.8-7.8); NEUTROPHILS % (AUTO) 58 % (42-75); PLATELET COUNT 489 10^3/uL (130-400); RED BLOOD COUNT 3.95 10^6/uL (4.35-5.85); RED CELL DISTRIBUTION WIDTH 12.7 % (10.0-14.5); WHITE BLOOD COUNT 15.5 10^3/uL (4.3-11.0)
[2018-01-23 03:55] LABS: ALANINE AMINOTRANSFERASE 30 U/L (0-55); ALBUMIN 3.2 GM/DL (3.2-4.5); ALKALINE PHOSPHATASE 89 U/L (40-136); BILIRUBIN,TOTAL 0.3 MG/DL (0.1-1.0); BUN/CREATININE RATIO 14; CALCIUM 8.8 MG/DL (8.5-10.1); CARBON DIOXIDE 20 MMOL/L (21-32); CHLORIDE 101 MMOL/L (98-107); CREATININE SERUM 0.74 MG/DL (0.60-1.30); GFR ESTIMATED > 60; GLUCOSE 78 MG/DL (70-105); POTASSIUM 2.9 MMOL/L (3.6-5.0); SODIUM 136 MMOL/L (135-145); TOTAL PROTEIN 6.2 GM/DL (6.4-8.2)
[2018-01-23 04:00] VITALS: BP 159/70
[2018-01-23] MEDS: NS IV 1000 ML 1,000 ML IV SCH ×3 (05:08→21:54)
[2018-01-23 08:52] VITALS: BP 150/68
[2018-01-23] MEDS ORDERED: VANCOMYCIN INJECTION 2,000 MG in NS IV 500 ML 500 ML IV NR (09:50)
[2018-01-23] MEDS ORDERED: ATEN25TA PO (10:04)
[2018-01-23] MEDS ORDERED: GLIM4TAB PO (10:04)
[2018-01-23] MEDS ORDERED: PANT20TA3 PO (10:05)
[2018-01-23] MEDS ORDERED: HYDR-3816 PO (10:06)
[2018-01-23] MEDS ORDERED: ZIPR20CA23 PO (10:07)
[2018-01-23] MEDS ORDERED: ZIPR20CA24 PO (10:07)
[2018-01-23] MEDS ORDERED: LIRA0.6P3 SQ (10:08)
[2018-01-23] MEDS ORDERED: METF-399 PO (10:08)
[2018-01-23] MEDS ORDERED: POTA10TA10 PO (10:09)
[2018-01-23] MEDS ORDERED: FURO20TA4 PO (10:09)
[2018-01-23] MEDS ORDERED: DICY20TA10 PO (10:10)
[2018-01-23] MEDS ORDERED: ASPI-586 PO (10:12)
[2018-01-23 12:00] VITALS: BP 128/61
[2018-01-23] MEDS: POTASSIUM CL 10MEQ/50ML IVPB 50 ML IV SCH ×6 (13:34→20:24)
[2018-01-23] MEDS: CLINDAMYCIN 900 MG/50 ML IVPB 50 ML IV SCH ×2 (15:34→21:54)
[2018-01-23 15:50] VITALS: BP 163/71
[2018-01-23] MEDS ORDERED: NON-FORMULARY MEDICATION 1 EA EA (Hydrocodone/Acetaminophen (Hydrocodone-Acetamin 7.5-325) PO PRN (17:00)
--- NOTE | 2018-01-23 17:07 | History & Physicial (CHS) ---
HPI History of Present Illness: 67 yo female sent from [facility] due to swelling and drainage from left lower face. She reportedly saw the dentist and has been on oral clindamycin for a few days, but the patient states she has not seen anyone for this. She is unable to provide much meaningful history. When asked what brought her to the hospital, she stated she was placed in [facility] due to inability take care of herself and bathe herself. Date seen by provider: Jan 23, 2018 Time Seen by Provider: 11:20 Attending Physician Mora Rollins MD PCP Albino Rojas MD Consult Date of Admission Jan 22, 2018 at 4:30 pm Home Medications Home Medications Reviewed patient Home Medication Reconciliation performed by pharmacy medication reconciliations alignment technician and/or nursing. Patients Allergies have been reviewed. Allergies Coded Allergies: cephalexin (Verified Allergy, Mild, RASH, 06/30/17) Penicillins (Verified Allergy, Unknown, 12/07/13) Sulfa (Sulfonamide Antibiotics) (Unverified Allergy, Unknown, 12/07/13) IFQ-Nbqbft-Dljzhd Hx Patient Social History Alcohol Use: Denies Use Recreational Drug Use: No Smoking Status: Current Everyday Smoker Former smoker/When Quit: Jul 25, 2012 Type Used: Cigarettes 2nd Hand Smoke Exposure: No Recent Foreign Travel: No Contact w/other who traveled: No Recent Hopitalizations: Yes (prior surgeries listed, multiple hospitalizations) Recent Infectious Disease Expo: No Physical Abuse Screen: No Sexual Abuse: No Immunizations Up To Date Tetanus Booster (TDap): Unknown Date of Pneumonia Vaccine: Dec 07, 2011 Date of Influenza Vaccine: Jan 04, 2012 Past Medical History PMHx: Pt states only Meniere's disease, record review reveals: DMII Neurogenic bladder Polyneuropathy Psychosis Lumbar disc disease Chronic pain Fibromyalgia Irritable bowel syndrome Anxiety GERD PSurgHx: Hysterectomy Appendectomy Ear surgery x 3 Humeral fracture Rectocele/cystocele Family Medical History Significant Family History: No Pertinent Family Hx Review of Systems ([facility]C) Constitutional: No fever; other (difficult to obtain due to patient wandering concentration) Gastrointestinal: nausea; No vomiting Reviewed Test Results Reviewed Test Results Lab Laboratory Tests Test 01/22/18 14:16 01/22/18 16:28 01/23/18 03:27 01/23/18 09:45 Range/Units White Blood Count 16.9 H 15.5 H 4.3-11.0 10^3/uL Red Blood Count 4.55 3.95 L 4.35-5.85 10^6/uL Hemoglobin 13.7 11.8 11.5-16.0 G/DL Hematocrit 40 35 35-52 % Mean Corpuscular Volume 88 89 80-99 FL Mean Corpuscular Hemoglobin 30 30 25-34 PG Mean Corpuscular Hemoglobin Concent 34 34 32-36 G/DL Red Cell Distribution Width 12.8 12.7 10.0-14.5 % Platelet Count 605 H 489 H 130-400 10^3/uL Mean Platelet Volume 9.0 9.2 7.4-10.4 FL Neutrophils (%) (Auto) 60 58 42-75 % Lymphocytes (%) (Auto) 30 31 12-44 % Monocytes (%) (Auto) 9 10 0-12 % Eosinophils (%) (Auto) 1 1 0-10 % Basophils (%) (Auto) 0 0 0-10 % Neutrophils # (Auto) 10.1 H 8.9 H 1.8-7.8 X 10^3 Lymphocytes # (Auto) 5.2 H 4.8 H 1.0-4.0 X 10^3 Monocytes # (Auto) 1.5 H 1.6 H 0.0-1.0 X 10^3 Eosinophils # (Auto) 0.1 0.2 0.0-0.3 10^3/uL Basophils # (Auto) 0.0 0.0 0.0-0.1 10^3/uL Neutrophils % (Manual) 53 % Lymphocytes % (Manual) 33 % Monocytes % (Manual) 8 % Eosinophils % (Manual) 0 % Basophils % (Manual) 0 % Band Neutrophils 2 % Reactive Lymphocytes 4 % Blood Morphology Comment NORMAL Prothrombin Time 13.8 12.2-14.7 SEC INR Comment 1.1 0.8-1.4 Activated Partial Thromboplast Time 33 24-35 SEC Sodium Level 135 136 135-145 MMOL/L Potassium Level 3.3 L 2.9 L 3.6-5.0 MMOL/L Chloride Level 94 L 101 98-107 MMOL/L Carbon Dioxide Level 24 20 L 21-32 MMOL/L Anion Gap 17 H 15 H 5-14 MMOL/L Blood Urea Nitrogen 15 10 7-18 MG/DL Creatinine 0.85 0.74 0.60-1.30 MG/DL Estimat Glomerular Filtration Rate > 60 > 60 BUN/Creatinine Ratio 18 14 Glucose Level 96 78 70-105 MG/DL Lactic Acid Level 4.05 *H 3.18 *H 1.80 0.50-2.00 MMOL/L Calcium Level 9.9 8.8 8.5-10.1 MG/DL Corrected Calcium 9.9 9.4 8.5-10.1 MG/DL Total Bilirubin 0.4 0.3 0.1-1.0 MG/DL Aspartate Amino Transf (AST/SGOT) 42 H 24 5-34 U/L Alanine Aminotransferase (ALT/SGPT) 44 30 0-55 U/L Alkaline Phosphatase 112 89 40-136 U/L Total Protein 8.0 6.2 L 6.4-8.2 GM/DL Albumin 4.0 3.2 3.2-4.5 GM/DL Radiology CT neck: Impression: Odontogenic infection involving the posterior most left mandibular molar which has eroded through the medial cortex of the mandible and has an associated abscess Physical Exam-([facility]C) Physical Exam Vital Signs VS - Last 72 Hours, by Label 01/22/18 01/22/18 01/22/18 01/22/18 14:10 17:09 17:45 18:27 Temp 98.9 98.9 96.0 Pulse 97 97 78 Resp 20 20 B/P (MAP) 120/72 (88) 120/72 (88) 135/60 (85) Pulse Ox 94 94 95 95 O2 Delivery Room Air Room Air Room Air 01/22/18 01/22/18 01/23/18 01/23/18 19:50 20:51 00:00 01:00 Temp 96.2 97.8 Pulse 79 83 87 84 Resp 18 B/P (MAP) 140/60 (86) 145/64 (91) Pulse Ox 95 93 O2 Delivery Room Air Room Air 01/23/18 01/23/18 01/23/18 01/23/18 04:00 07:01 08:52 12:00 Temp 98.5 95.9 96.0 Pulse 85 86 82 84 Resp 18 16 18 B/P (MAP) 159/70 (99) 150/68 (95) 128/61 (83) Pulse Ox 94 97 94 O2 Delivery Room Air Room Air Room Air 01/23/18 01/23/18 12:03 14:15 Temp 96.0 Pulse 81 Capillary Refill : Less Than 3 Seconds General Appearance: no apparent distress HEENT: other (bandage in place over draining wound on lower left jaw) Respiratory: lungs clear, normal breath sounds Cardiovascular: regular rate, rhythm, no murmur Extremities: no pedal edema Neurologic/Psychiatric: alert Assessment/Plan Assessment/Plan Admission Status: Inpatient Order (span 2 midnights) Reason for Inpatient Admission: Severe odontogenic infection with abscess requiring IV antibiotics and possibly procedure for drainage. (1) Severe sepsis Status: Resolved Assessment & Plan: Lactic acidosis in ER above 4, 2/4 SIRS criteria ( tachycardia above 90, leukocytosis). Lactic acid improved with bolus given in ED and normalized this am. Antibiotics as noted under dental abscess. (2) Dental abscess Status: Acute Assessment & Plan: IV clindamycin and vancomycin given severity. Received one dose of meropenem in ED, may resume if not improving with clinda. Consult Dr. Bush, not currently available, will start IV antibiotics as noted and contact again tomorrow. 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 Diabetic diet, sliding scale insulin. (4) Psychosis Status: Chronic Assessment & Plan: Continue home Geodon Qualifiers: Qualified Codes: F29 - Unspecified psychosis not due to a substance or known physiological condition (5) Irritable bowel syndrome Status: Chronic Assessment & Plan: Continue home meds (6) Fibromyalgia Status: Chronic Assessment & Plan: Continue home duloxetine and pregabalin (7) GERD (gastroesophageal reflux disease) Status: Chronic (8) Back pain Status: Chronic Assessment & Plan: Continue home pain medications (9) DVT prophylaxis Status: Acute Assessment & Plan: Enoxaparin Clinical Quality Measures DVT/VTE Risk/Contraindication: Risk Factor Score Per Nursin RFS Level Per Nursing on Admit: 4+=Very High MORA ROLLINS MD Jan 23, 2018 5:07 pm
[2018-01-23] MEDS ORDERED: ENOXAPARIN 40 MG/0.4 ML (LOVENOX) SYR SQ SCH (17:45)
[2018-01-23 19:55] VITALS: BP 144/62
[2018-01-23] MEDS: inSUlin ASPART (NovoLOG) 1 UNIT/0.01 ML (CHARGE PER UNIT) SC SCH (20:55)
[2018-01-23] MEDS ORDERED: ZIPRASIDONE HCL 20 MG PO SCH (21:00)
[2018-01-23] MEDS ORDERED: NON-FORMULARY MEDICATION 1 EA EA (Hydrochlorothiazide 12.5 MG) PO SCH (21:00)
[2018-01-23] MEDS ORDERED: NON-FORMULARY MEDICATION 1 EA EA (Dicyclomine HCl 20 MG) PO SCH (21:00)
[2018-01-23] MEDS: HYDROCHLOROTHIAZIDE 12.5 MG (HCTZ) CAP PO SCH (21:06)
[2018-01-23] MEDS: DICYCLOMINE 10 MG (BENTYL) CAP PO SCH (21:06)
[2018-01-23] MEDS: ZIPRASIDONE 20 MG (GEODON) CAP PO SCH (21:06)
[2018-01-23] MEDS: ENOXAPARIN 40 MG/0.4 ML (LOVENOX) SYR SQ SCH (21:06)
[2018-01-24] VITALS (7 sets, daily range): BP systolic 122–150; BP diastolic 57–71
[2018-01-24] MEDS: NS IV 1000 ML 1,000 ML IV SCH ×3 (00:44→20:34)
[2018-01-24] MEDS: inSUlin ASPART (NovoLOG) 1 UNIT/0.01 ML (CHARGE PER UNIT) SC SCH ×4 (05:59→20:34)
[2018-01-24] MEDS: fentaNYL INJECTION 100 MCG/2 ML AMP IVP PRN (06:13)
[2018-01-24] MEDS: CLINDAMYCIN 900 MG/50 ML IVPB 50 ML IV SCH ×3 (06:13→22:43)
[2018-01-24] MEDS: GLIMEPIRIDE 4 MG (AMARYL) TAB PO SCH (06:17)
[2018-01-24] MEDS: ZIPRASIDONE 40 MG (GEODON) CAP PO SCH (06:17)
[2018-01-24] MEDS: PANTOPRAZOLE 20 MG TABLET (PROTONIX) PO SCH (06:17)
[2018-01-24 07:04] LABS: HEMOGLOBIN 12.1 G/DL (11.5-16.0); MEAN PLATELET VOLUME 9.1 FL (7.4-10.4); RED BLOOD COUNT 4.04 10^6/uL (4.35-5.85); RED CELL DISTRIBUTION WIDTH 12.9 % (10.0-14.5); WHITE BLOOD COUNT 12.3 10^3/uL (4.3-11.0)
[2018-01-24 07:21] LABS: BUN/CREATININE RATIO 9; CARBON DIOXIDE 20 MMOL/L (21-32); CHLORIDE 106 MMOL/L (98-107); CREATININE SERUM 0.67 MG/DL (0.60-1.30); GFR ESTIMATED > 60; GLUCOSE 117 MG/DL (70-105); SODIUM 140 MMOL/L (135-145)
[2018-01-24] MEDS ORDERED: POTASSIUM CL 10MEQ/50ML IVPB 200 ML IV ONE (08:39)
[2018-01-24] MEDS: ATENOLOL 25 MG (TENORMIN) TAB PO SCH (08:52)
[2018-01-24] MEDS: DULoxetine 30 MG (CYMBALTA) CAP PO SCH (08:52)
[2018-01-24] MEDS: POTASSIUM CL 10MEQ/50ML IVPB 50 ML IV SCH ×4 (08:52→12:24)
[2018-01-24] MEDS: HYDROCHLOROTHIAZIDE 12.5 MG (HCTZ) CAP PO SCH ×2 (08:53→20:33)
[2018-01-24] MEDS: DICYCLOMINE 10 MG (BENTYL) CAP PO SCH ×3 (08:53→20:33)
[2018-01-24] MEDS: FUROSEMIDE 20 MG (LASIX) TAB PO SCH (08:53)
[2018-01-24] MEDS: ASPIRIN 81 MG CHEW (CHILDREN'S ASA) PO SCH (08:53)
[2018-01-24] MEDS ORDERED: NON-FORMULARY MEDICATION 1 EA EA (Aspirin (Aspir 81) 81 MG) PO SCH (09:00)
[2018-01-24] MEDS ORDERED: NON-FORMULARY MEDICATION 1 EA EA (Liraglutide (Victoza 3-Pak) 0.6 MG) SQ SCH (09:00)
[2018-01-24] MEDS ORDERED: ZIPRASIDONE HCL 40 MG PO SCH (09:00)
[2018-01-24] MEDS ORDERED: NON-FORMULARY MEDICATION 1 EA EA (Glimepiride 4 MG) PO SCH (09:00)
[2018-01-24] MEDS ORDERED: NON-FORMULARY MEDICATION 1 EA EA (Pantoprazole Sodium 20 MG) PO SCH (09:00)
--- NOTE | 2018-01-24 09:30 | Progress Note-Hospitalist ---
Subjective HPI/CC On Admission Date Seen by Provider: Jan 24, 2018 Time Seen by Provider: 09:15 Subjective/Events-last exam Patient still with draining abscess on her left mandible from the dental abscess noted on CT scan Clindamycin and vancomycin on board Spoke with Dr. Chun because Dr. Bush and Dr. Harrison are unavailable and he will look to drain abscess Patient with very flat affect but that is chronic in nature Reviewed labs and meds Much improved Pain is controlled Focused Exam Lactate Level 01/22/18 14:16: Lactic Acid Level 4.05*H 01/22/18 16:28: Lactic Acid Level 3.18*H 01/23/18 09:45: Lactic Acid Level 1.80 Objective Exam Vital Signs Vital Signs Date Time Temp Pulse Resp B/P (MAP) Pulse Ox O2 Delivery O2 Flow Rate FiO2 01/24/18 08:00 97.5 68 20 140/64 (89) 99 Room Air Capillary Refill : Less Than 3 Seconds General Appearance: No Apparent Distress, WD/WN, Chronically ill, Obese HEENT: Other (left mandible draining abscess) Respiratory: Chest Non Tender, Lungs Clear, Normal Breath Sounds, No Accessory Muscle Use, No Respiratory Distress Cardiovascular: Regular Rate, Rhythm, No Edema, No Gallop, No JVD, No Murmur, Normal Peripheral Pulses Neurologic/Psychiatric: Alert, Oriented x3, No Motor/Sensory Deficits, Normal Mood/Affect Results/Procedures Lab Laboratory Tests 01/24/18 06:17 Patient resulted labs reviewed. Assessment/Plan Assessment and Plan Assess & Plan/Chief Complaint Assessment: Dental abscess with spontaneous rupture and drainage left mandible nail that abscess still present on CT scan consulting general surgery since oral surgery and ENT specialty is unavailable Chronic debility requiring prison placement permanently Mental illness long-standing Diabetes mellitus Obesity Flat affect Plan: Continue IV antibiotics Appreciate general surgery consultation for drainage of abscess Monitor closely Poor prognosis overall since she is so chronically debilitated Diagnosis/Problems Diagnosis/Problems (1) Dental abscess Status: Acute (2) Severe sepsis Status: Resolved (3) Weakness Status: Chronic (4) DM (diabetes mellitus), 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 (5) Meniere disease Status: Chronic (6) Irritable bowel syndrome Status: Chronic (7) Fibromyalgia Status: Chronic (8) GERD (gastroesophageal reflux disease) Status: Chronic (9) DVT prophylaxis Status: Acute Clinical Quality Measures DVT/VTE Risk/Contraindication: Risk Factor Score Per Nursin RFS Level Per Nursing on Admit: 4+=Very High ROMMEL AMOS DO Jan 24, 2018 09:30
[2018-01-24] MEDS ORDERED: VANCOMYCIN 1500 MG/NS 500 ML IVPB IV SCH ×2 (10:00)
[2018-01-24] MEDS: HYDROcodone/APAP 7.5 MG/325 MG (LORTAB, LORCET PLUS) TABLET PO PRN ×2 (12:24→20:39)
--- NOTE | 2018-01-24 19:34 | Consultation ---
History of Present Illness History of Present Illness Patient Consulted On(frantz/time) 01/24/18 19:27 Time Seen by Provider: 11:12 History of Present Illness Surgery asked to consult regarding left jaw abscess. HPI per IM: 67 yo female sent from [facility] due to swelling and drainage from left lower face. She reportedly saw the dentist and has been on oral clindamycin for a few days, but the patient states she has not seen anyone for this. She is unable to provide much meaningful history. When asked what brought her to the hospital, she stated she was placed in shelter due to inability take care of herself and bathe herself. When I spoke to pt she states her jaw hurts, but may be a little better than when she came in. She does state it is draining and smells bad. She rates the pain as a 6 out of 10 on 1-10 scale, but at its worst it was 10 out of 10. Pain meds seem to make it better, nothing else except maybe the ABX are working. Allergies and Home Medications Allergies Coded Allergies: cephalexin (Verified Allergy, Mild, RASH, 06/30/17) Penicillins (Verified Allergy, Unknown, 12/07/13) Sulfa (Sulfonamide Antibiotics) (Unverified Allergy, Unknown, 12/07/13) Home Medications Aspirin 81 Mg Tablet.dr, 81 MG PO DAILY, (Reported) Atenolol 25 Mg Tablet, 25 MG PO DAILY, (Reported) Cyclobenzaprine Hcl 10 Mg Tablet, 1 EACH PO Q8H PRN for SPASMS Prescribed by: CHRISSY WYATT on 09/18/14 0953 Dicyclomine HCl 20 Mg Tablet, 20 MG PO TID, (Reported) Duloxetine Hcl 60 Mg Capsule.dr, 60 MG PO DAILY, (Reported) Furosemide 20 Mg Tablet, 20 MG PO DAILY, (Reported) Glimepiride 4 Mg Tablet, 4 MG PO DAILY, (Reported) Hydrochlorothiazide 12.5 Mg Tablet, 12.5 MG PO BID, (Reported) Hydrocodone/Acetaminophen 1 Each Tablet, 1 EACH PO Q8H PRN for PAIN-MODERATE, ( Reported) Liraglutide 0.6 Mg/0.1 Ml Pen.injctr, 0.6 MG SQ DAILY, (Reported) Metformin HCl 1,000 Mg Tablet, 1,000 MG PO BID, (Reported) Pantoprazole Sodium 20 Mg Tablet.dr, 20 MG PO DAILY, (Reported) Polysaccharide Iron Complex 150 Mg Cap, 150 MG PO BID, (Reported) Potassium Chloride 10 Meq Tablet.er, 20 MEQ PO BID, (Reported) Ziprasidone HCl 20 Mg Capsule, 20 MG PO HS, (Reported) Ziprasidone HCl 20 Mg Capsule, 40 MG PO DAILY, (Reported) Patient Home Medication List Home Medication List Reviewed: Yes Past Vduqsfg-Masece-Kzoizo Hx Patient Social History Alcohol Use: Denies Use Recreational Drug Use: No Smoking Status: Current Everyday Smoker Type Used: Cigarettes 2nd Hand Smoke Exposure: No Recent Foreign Travel: No Contact w/Someone Who Travel: No Recent Infectious Disease Expo: No Recent Hopitalizations: Yes (prior surgeries listed, multiple hospitalizations) Physical Abuse Screen: No Sexual Abuse: No Immunizations Up To Date Tetanus Booster (TDap): Unknown Date of Pneumonia Vaccine: Dec 07, 2011 Date of Influenza Vaccine: Jan 13, 2018 Seasonal Allergies Seasonal Allergies: No Surgeries History of Surgeries: Yes (listed) Surgeries: Appendectomy, Bladder Surgery, Hysterectomy, Orthopedic Respiratory History of Respiratory Disorde: No Cardiovascular History of Cardiac Disorders: No Neurological History of Neurological Disord: Yes Neurological Disorders: Concussion, Neuropathy Reproductive System : No Hx Reproductive Disorders: No Sexually Transmitted Disease: No HIV/AIDS: No MAKE UP ARTIST History: Hysterectomy Genitourinary Genitourinary Disorders: Bladder Infection, Kidney Stones, UTI-Chronic Gastrointestinal History of Gastrointestinal Di: Yes Gastrointestinal Disorders: Irritable Bowel Musculoskeletal History of Musculoskeletal Dis: Yes Musculoskeletal Disorders: Osteoporosis, Chronic Back Pain Endocrine History of Endocrine Disorders: No Endocrine Disorders: Diabetes, Non-Insulin dep HEENT Hearing Impairment: Hard of Hearing Cancer History of Cancer: No Psychosocial History of Psychiatric Problem: Yes Behavioral Health Disorders: Depression Integumentary History of Skin or Integumenta: No Blood Transfusions History of Blood Disorders: Yes Adverse Reaction to a Blood Tr: No Family Medical History Significant Family History: No Pertinent Family Hx, Cancer (denies), Diabetes ( father) Review of Systems-General Constitutional: chills, diaphoresis, malaise, weakness EENTM: mouth pain, mouth swelling; No blurred vision, No epistaxis, No throat swelling Respiratory: No cough, No dyspnea on exertion, No hemoptysis Cardiovascular: No chest pain, No edema, No palpitations Gastrointestinal: No abdominal pain, No constipation, No diarrhea, No jaundice ; nausea Genitourinary: dysuria, frequency; No hematuria Musculoskeletal: back pain, joint pain, joint swelling, muscle stiffness Skin: No pruritus, No rash Psychiatric/Neurological: Anxiety, Depressed, Emotional Problems; Denies Seizure; Tremors Other pt denies any abnormal bruising or bleeding. Physical Exam-General Problems Physical Exam Vital Signs Vital Signs - First Documented 01/22/18 14:10 Temp 98.9 Pulse 97 Resp 20 B/P (MAP) 120/72 (88) Pulse Ox 94 O2 Delivery Room Air Capillary Refill : Less Than 3 SecondsLess Than 3 Seconds General Appearance: WD/WN, mild distress Eyes: Bilateral Eye PERRL, Bilateral Eye EOMI HEENT: pharynx normal; No scleral icterus (R), No scleral icterus (L), No pharyngeal erythema; other (I did not feel any abscess or see anything on lower left side of teeth, she said it was molar, but I saw no signs of abscess in oral cavity) Neck: other (pt has large area of erythema on left side of neck, with induration and thickened tissue. There is an area of necrotic tissue and an open draining wound under jaw on her neck) Respiratory: chest non-tender, lungs clear, normal breath sounds, no respiratory distress, no accessory muscle use Cardiovascular: regular rate, rhythm, no murmur Gastrointestinal: normal bowel sounds, non tender, soft, no organomegaly, no pulsatile mass Back: no CVA tenderness, no vertebral tenderness Extremities: normal range of motion, normal inspection, no pedal edema, no calf tenderness Neurologic/Psychiatric: shake packer II-XII nml as tested, no motor/sensory deficits, alert, normal mood/affect, oriented x 3 Skin: normal color, warm/dry Lymphatic: no adenopathy (axilla or groin) Data Review Labs Laboratory Tests 01/23/18 20:55: Glucometer 146H 01/24/18 05:15: Glucometer 90 01/24/18 06:17: White Blood Count 12.3H, Red Blood Count 4.04L, Hemoglobin 12.1, Hematocrit 36, Mean Corpuscular Volume 89, Mean Corpuscular Hemoglobin 30, Mean Corpuscular Hemoglobin Concent 34, Red Cell Distribution Width 12.9, Platelet Count 523H, Mean Platelet Volume 9.1, Sodium Level 140, Potassium Level 3.0L, Chloride Level 106, Carbon Dioxide Level 20L, Anion Gap 14, Blood Urea Nitrogen 6L, Creatinine 0.67, Estimat Glomerular Filtration Rate > 60, BUN/Creatinine Ratio 9 , Glucose Level 117H, Calcium Level 9.0 01/24/18 11:31: Glucometer 180H 01/24/18 15:39: Glucometer 147H Microbiology 01/22/18 Blood Culture - Preliminary, Resulted No growth 01/22/18 Gram Stain - Final, Resulted 01/22/18 Wound Culture - Preliminary, Resulted Staphylococcus aureus Assessment/Plan Assessment/Plan Assessment/Plan Left jaw abscess with necrotic tissue DM, HTN Plan is to take pt to the OR in the am to debride the area; cut out all the necrotic/ tissue. I explained to pt that this is the only way this will get better; ABX cannot take care of all of it with purulence and necrotic tissue still in the area. She understood and asked about pain; I told her it should be the same as now, but then slowly improve. Clinical Quality Measures DVT/VTE Risk/Contraindication: Risk Factor Score Per Nursin RFS Level Per Nursing on Admit: 4+=Very High LEONARDO PEDRO DO Jan 24, 2018 19:34
[2018-01-24] MEDS: ZIPRASIDONE 20 MG (GEODON) CAP PO SCH (20:33)
[2018-01-24] MEDS: ENOXAPARIN 40 MG/0.4 ML (LOVENOX) SYR SQ SCH (20:39)
[2018-01-25] VITALS: BP 132/63
[2018-01-25] MEDS: fentaNYL INJECTION 100 MCG/2 ML AMP IVP PRN ×2 (00:46→08:05)
[2018-01-25 04:00] VITALS: BP 170/72
[2018-01-25] MEDS: NS IV 1000 ML 1,000 ML IV SCH ×2 (05:16→13:39)
[2018-01-25] MEDS: inSUlin ASPART (NovoLOG) 1 UNIT/0.01 ML (CHARGE PER UNIT) SC SCH ×4 (05:16→20:46)
[2018-01-25] MEDS: PANTOPRAZOLE 20 MG TABLET (PROTONIX) PO SCH ×2 (06:50→06:54)
[2018-01-25] MEDS: GLIMEPIRIDE 4 MG (AMARYL) TAB PO SCH ×2 (06:50→06:54)
[2018-01-25] MEDS: CLINDAMYCIN 900 MG/50 ML IVPB 50 ML IV SCH ×3 (06:50→22:16)
[2018-01-25] MEDS: ZIPRASIDONE 40 MG (GEODON) CAP PO SCH ×2 (06:51→06:54)
[2018-01-25] MEDS ORDERED: LIDOCAINE/EPI 1%-1:200,000 (XYLOCAINE) 10 ML VIAL ONE (07:27)
[2018-01-25 08:00] VITALS: BP 169/74
[2018-01-25] MEDS ORDERED: fentaNYL INJECTION 100 MCG/2 ML AMP ONE (08:23)
[2018-01-25] MEDS ORDERED: MIDAZOLAM 2 MG/2 ML (VERSED) VIAL ONE (08:23)
[2018-01-25] MEDS ORDERED: SEVOFLURANE (ULTANE) 15 ML INHAL SOLN ONE ×3 (08:32→09:51)
[2018-01-25] MEDS ORDERED: LIDOCAINE PF 2% 5 ML (XYLOCAINE) VIAL ONE (08:32)
[2018-01-25] MEDS ORDERED: ONDANSETRON 4 MG/2 ML (SDV) Z0FRAN ONE (08:32)
[2018-01-25] MEDS ORDERED: proPOfol 200 MG/20 ML (DIPRIVAN) VIAL IV ONE (08:32)
[2018-01-25] MEDS ORDERED: ROCURONIUM 10 MG/ML 5 ML SYRINGE IV ONE (08:32)
[2018-01-25] MEDS ORDERED: TROUGH ORDER-PHARMACY XX NR ×2 (09:00→12:00)
[2018-01-25] MEDS ORDERED: ONDANSETRON 4 MG/2 ML (SDV) Z0FRAN IVP PRN (09:30)
[2018-01-25] MEDS ORDERED: morphine INJ 10 MG/ML 1ML (SYR OR VIAL) IVP ONE (09:30)
[2018-01-25] MEDS ORDERED: HYDROmorphone 2 MG/ML VIAL (DILAUDID) IV ONE (09:30)
[2018-01-25] MEDS ORDERED: ESMOLOL 100 MG/10 ML (BREVIBLOC) VIAL ONE (09:48)
--- NOTE | 2018-01-25 09:51 | Progress Note-Hospitalist ---
Subjective HPI/CC On Admission Date Seen by Provider: Jan 25, 2018 Time Seen by Provider: 09:00 Subjective/Events-last exam Patient was in OR during rounds Checked meds and labs Focused Exam Lactate Level 01/22/18 14:16: Lactic Acid Level 4.05*H 01/22/18 16:28: Lactic Acid Level 3.18*H 01/23/18 09:45: Lactic Acid Level 1.80 Objective Exam Vital Signs Vital Signs Date Time Temp Pulse Resp B/P (MAP) Pulse Ox O2 Delivery O2 Flow Rate FiO2 01/25/18 08:00 96.6 70 18 169/74 (105) 94 Room Air Capillary Refill : Less Than 3 SecondsLess Than 3 Seconds General Appearance: Other (in OR during rounds) Results/Procedures Lab Patient resulted labs reviewed. Assessment/Plan Assessment and Plan Assess & Plan/Chief Complaint Assessment: Dental abscess with spontaneous rupture and drainage left mandible nail that abscess still present on CT scan consulting general surgery since oral surgery and ENT specialty is unavailable and currently udergoing I&D now Chronic debility requiring [facility] placement permanently Mental illness long-standing Diabetes mellitus Obesity Flat affect Plan: Continue IV antibiotics Appreciate general surgery consultation for drainage of abscess Monitor closely Poor prognosis overall since she is so chronically debilitated Diagnosis/Problems Diagnosis/Problems (1) Status post incision and drainage Status: Acute (2) Dental abscess Status: Acute (3) Severe sepsis Status: Resolved (4) Weakness Status: Chronic (5) DM (diabetes mellitus), 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
--- NOTE | 2018-01-25 10:03 | Anesthesia-General Post-Op ---
General Patient Condition Mental Status/LOC: Same as Preop Cardiovascular: Satisfactory Nausea/Vomiting: Absent Respiratory: Satisfactory Pain: Controlled Complications: Absent Post Op Complications Complications None Follow Up Care/Instructions Patient Instructions None needed. Anesthesia/Patient Condition Patient Condition Patient is doing well, no complaints, stable vital signs, no apparent adverse anesthesia problems. No complications reported per nursing. MARYAN HSIEH CRNA Jan 25, 2018 10:03
[2018-01-25] MEDS: DICYCLOMINE 10 MG (BENTYL) CAP PO SCH ×3 (11:21→20:47)
[2018-01-25] MEDS: ASPIRIN 81 MG CHEW (CHILDREN'S ASA) PO SCH (11:21)
[2018-01-25] MEDS: HYDROCHLOROTHIAZIDE 12.5 MG (HCTZ) CAP PO SCH ×2 (11:22→20:46)
[2018-01-25] MEDS: HYDROcodone/APAP 7.5 MG/325 MG (LORTAB, LORCET PLUS) TABLET PO PRN ×2 (11:22→20:46)
[2018-01-25] MEDS: FUROSEMIDE 20 MG (LASIX) TAB PO SCH (11:22)
[2018-01-25] MEDS: ATENOLOL 25 MG (TENORMIN) TAB PO SCH (11:22)
[2018-01-25] MEDS: DULoxetine 30 MG (CYMBALTA) CAP PO SCH (11:22)
[2018-01-25 12:00] VITALS: BP 154/69
[2018-01-25 12:22] LABS: BASOPHILS # (AUTO) 0.1 10^3/uL (0.0-0.1); BASOPHILS % (AUTO) 1 % (0-10); EOSINOPHILS # (AUTO) 0.2 10^3/uL (0.0-0.3); EOSINOPHILS % (AUTO) 2 % (0-10); HEMATOCRIT 35 % (35-52); HEMOGLOBIN 11.4 G/DL (11.5-16.0); LYMPHOCYTES # (AUTO) 4.7 X 10^3 (1.0-4.0); LYMPHOCYTES % (AUTO) 39 % (12-44); MEAN CORPUSCULAR HEMOGLOBIN 30 PG (25-34); MEAN CORPUSCULAR HGB CONC 33 G/DL (32-36); MEAN CORPUSCULAR VOLUME 90 FL (80-99); MONOCYTES # (AUTO) 0.9 X 10^3 (0.0-1.0); MONOCYTES % (AUTO) 8 % (0-12); NEUTROPHILS # (AUTO) 6.2 X 10^3 (1.8-7.8); NEUTROPHILS % (AUTO) 52 % (42-75); PLATELET COUNT 475 10^3/uL (130-400); RED BLOOD COUNT 3.83 10^6/uL (4.35-5.85); RED CELL DISTRIBUTION WIDTH 12.7 % (10.0-14.5); WHITE BLOOD COUNT 12.1 10^3/uL (4.3-11.0)
[2018-01-25 12:41] LABS: ALANINE AMINOTRANSFERASE 25 U/L (0-55); ALKALINE PHOSPHATASE 78 U/L (40-136); BILIRUBIN,TOTAL 0.2 MG/DL (0.1-1.0); BUN/CREATININE RATIO 9; CALCIUM 8.6 MG/DL (8.5-10.1); CARBON DIOXIDE 22 MMOL/L (21-32); CHLORIDE 105 MMOL/L (98-107); CREATININE SERUM 0.78 MG/DL (0.60-1.30); GFR ESTIMATED > 60; GLUCOSE 228 MG/DL (70-105); POTASSIUM 3.3 MMOL/L (3.6-5.0); SODIUM 138 MMOL/L (135-145); TOTAL PROTEIN 5.8 GM/DL (6.4-8.2)
[2018-01-25 12:47] LABS: VANCOMYCIN,TROUGH 6.8 UG/ML (10.0-20.0)
[2018-01-25] MEDS ORDERED: VANCOMYCIN 1500 MG/NS 500 ML IVPB IV SCH ×2 (13:00)
[2018-01-25 16:00] VITALS: BP 124/86
[2018-01-25 19:55] VITALS: BP 140/65
[2018-01-25] MEDS: ENOXAPARIN 40 MG/0.4 ML (LOVENOX) SYR SQ SCH (20:46)
[2018-01-25] MEDS: ZIPRASIDONE 20 MG (GEODON) CAP PO SCH (20:46)
--- NOTE | 2018-01-25 22:09 | OPERATIVE REPORT ---
DATE OF SERVICE: 01/25/2018 PREOPERATIVE DIAGNOSIS: Left jaw abscess, necrotic tissue. POSTOPERATIVE DIAGNOSIS: Left jaw abscess, necrotic tissue, pending pathology. PROCEDURE: Debridement of necrotic tissue of left jaw measuring approximately 3 cm x 3.5 cm x at least 2 cm deep, possibly deeper. ESTIMATED BLOOD LOSS: Scant. FLUIDS: Per anesthesia. POSTOPERATIVE CONDITION: Stable. INDICATION FOR PROCEDURE: The patient is a 67-year-old female who apparently initially started with a tooth abscess, then it actually worsened until she was admitted to the hospital. A CT showed an abscess that went from the jaw and neck area to the bottom of the mandible. FINDINGS: The patient had necrotic tissue and a tract that went up. It felt like right up into the mandible. It felt in the inside of mouth, did not feel anything along the sides of the teeth, either under the tongue or to the lateral aspect and did not see any erythema in this area. PROCEDURE NOTE: After informed consent was obtained, the patient was brought to the operating room, placed on the table in supine position. She was sterilely prepped and draped in normal fashion. Then, while she just before we had put her to sleep and put the LMA in, felt the lateral aspect of the jaw on the inside until to the lateral aspect of the teeth, could not feel anything or see any abscesses or erythema. I felt inside the teeth. I ran my finger along, again did not feel anything, then when she had been prepped and draped, I started cutting out necrotic tissue, debriding the area measuring 3 cm x 3.5 x 2.5 cm deep and it felt like it tracked and went all the way right up into the mandible, debrided the necrotic tissue down to fresh tissue, controlled bleeding with a Bovie electrocautery. Copiously used scissors, sharp scissors for the dissection, used Bovie electrocautery to control the bleeding. This tracked, tunneled up right up to and it felt like the mandible, elected to once everything was debrided to fresh tissue and bleeding was controlled. I then packed with quarter inch iodoform packing and then placed a dressing over this. The patient tolerated the procedure. She was then transferred to recovery room in stable condition. Sponge, instruments and needle counts correct at the end of the case. Job ID: [id number] DocumentID: [id number] Dictated Date: 01/25/2018 16:40:46 Thermometer Maker Date: 01/25/2018 19:11:34 Dictated By: LEONARDO PEDRO DO
[2018-01-26 00:02] VITALS: BP 139/63
[2018-01-26] MEDS: VANCOMYCIN 1500 MG/NS 500 ML IVPB IV SCH ×4 (01:06→13:05)
[2018-01-26 04:02] VITALS: BP 137/64
[2018-01-26 05:03] LABS: BASOPHILS % (AUTO) 0 % (0-10); EOSINOPHILS # (AUTO) 0.4 10^3/uL (0.0-0.3); EOSINOPHILS % (AUTO) 3 % (0-10); HEMATOCRIT 35 % (35-52); HEMOGLOBIN 11.6 G/DL (11.5-16.0); LYMPHOCYTES % (AUTO) 40 % (12-44); MEAN CORPUSCULAR HEMOGLOBIN 30 PG (25-34); MEAN CORPUSCULAR HGB CONC 33 G/DL (32-36); MEAN CORPUSCULAR VOLUME 90 FL (80-99); MONOCYTES # (AUTO) 1.1 X 10^3 (0.0-1.0); MONOCYTES % (AUTO) 9 % (0-12); NEUTROPHILS # (AUTO) 6.1 X 10^3 (1.8-7.8); NEUTROPHILS % (AUTO) 48 % (42-75); PLATELET COUNT 508 10^3/uL (130-400); RED BLOOD COUNT 3.86 10^6/uL (4.35-5.85); RED CELL DISTRIBUTION WIDTH 12.9 % (10.0-14.5); WHITE BLOOD COUNT 12.6 10^3/uL (4.3-11.0)
[2018-01-26 05:43] LABS: ALANINE AMINOTRANSFERASE 27 U/L (0-55); ALBUMIN 3.2 GM/DL (3.2-4.5); ALKALINE PHOSPHATASE 79 U/L (40-136); BILIRUBIN,TOTAL 0.3 MG/DL (0.1-1.0); BUN/CREATININE RATIO 10; CALCIUM 9.3 MG/DL (8.5-10.1); CARBON DIOXIDE 23 MMOL/L (21-32); CHLORIDE 104 MMOL/L (98-107); CREATININE SERUM 0.73 MG/DL (0.60-1.30); GFR ESTIMATED > 60; GLUCOSE 113 MG/DL (70-105); POTASSIUM 2.9 MMOL/L (3.6-5.0); SODIUM 141 MMOL/L (135-145); TOTAL PROTEIN 6.1 GM/DL (6.4-8.2)
[2018-01-26] MEDS: PANTOPRAZOLE 20 MG TABLET (PROTONIX) PO SCH (06:28)
[2018-01-26] MEDS: CLINDAMYCIN 900 MG/50 ML IVPB 50 ML IV SCH (06:28)
[2018-01-26] MEDS: GLIMEPIRIDE 4 MG (AMARYL) TAB PO SCH (06:28)
[2018-01-26] MEDS: ZIPRASIDONE 40 MG (GEODON) CAP PO SCH (06:28)
[2018-01-26] MEDS: inSUlin ASPART (NovoLOG) 1 UNIT/0.01 ML (CHARGE PER UNIT) SC SCH ×4 (06:32→20:49)
[2018-01-26 08:00] VITALS: BP 137/58
[2018-01-26] MEDS ORDERED: MAGNESIUM OXIDE (MAG-OX)400 MG TAB PO NR (09:15)
[2018-01-26] MEDS: FUROSEMIDE 20 MG (LASIX) TAB PO SCH (09:41)
[2018-01-26] MEDS: ASPIRIN 81 MG CHEW (CHILDREN'S ASA) PO SCH (09:41)
[2018-01-26] MEDS: DICYCLOMINE 10 MG (BENTYL) CAP PO SCH ×3 (09:41→20:48)
[2018-01-26] MEDS: ATENOLOL 25 MG (TENORMIN) TAB PO SCH (09:42)
[2018-01-26] MEDS: DULoxetine 30 MG (CYMBALTA) CAP PO SCH (09:46)
[2018-01-26] MEDS: KCL 10 MEQ TAB (MICRO K) PO SCH ×3 (09:52→20:48)
[2018-01-26] MEDS: ENOXAPARIN 40 MG/0.4 ML (LOVENOX) SYR SQ SCH ×2 (10:17→20:49)
--- NOTE | 2018-01-26 10:31 | Progress Note ---
Subjective Time Seen by a Provider: 09:56 Subjective/Events-last exam Pt seen and examined, states she feels a little better. Actually looks a little better. States minimal pain. Review of Systems Pulmonary: No Dyspnea, No Cough Cardiovascular: No: Chest Pain Objective Exam Vital Signs Date Time Temp Pulse Resp B/P (MAP) Pulse Ox O2 Delivery O2 Flow Rate FiO2 01/26/18 08:00 98.0 67 20 137/58 (84) 95 Room Air 01/26/18 07:00 67 01/26/18 04:02 97.9 71 18 137/64 (88) 93 Room Air 01/26/18 01:41 60 01/26/18 00:02 98.0 62 18 139/63 (88) 94 Room Air 01/25/18 20:00 Room Air 01/25/18 19:55 97.6 68 22 140/65 (90) 96 Room Air 01/25/18 19:33 68 01/25/18 16:00 96.8 64 18 124/86 (99) 95 Room Air 01/25/18 13:00 62 01/25/18 12:00 96.5 61 18 154/69 (97) 94 Room Air I & O 01/26/18 07:00 Intake Total 2145 ml Balance 2145 ml Capillary Refill : Less Than 3 SecondsLess Than 3 Seconds HEENT: PERRL/EOMI, Pharynx Normal, Other (jaw appears better and less erythema) Respiratory: Chest Non Tender, Lungs Clear, Normal Breath Sounds, No Accessory Muscle Use, No Respiratory Distress Cardiovascular: Regular Rate, Rhythm, No Murmur Gastrointestinal: normal bowel sounds, non tender, soft, no organomegaly, no pulsatile mass Neurologic/Psychiatric: Alert, Oriented x3 Results Lab Laboratory Tests 01/25/18 11:38: Glucometer 232H 01/25/18 12:15: White Blood Count 12.1H, Red Blood Count 3.83L, Hemoglobin 11.4L, Hematocrit 35 , Mean Corpuscular Volume 90, Mean Corpuscular Hemoglobin 30, Mean Corpuscular Hemoglobin Concent 33, Red Cell Distribution Width 12.7, Platelet Count 475H, Mean Platelet Volume 9.0, Neutrophils (%) (Auto) 52, Lymphocytes (%) (Auto) 39, Monocytes (%) (Auto) 8, Eosinophils (%) (Auto) 2, Basophils (%) (Auto) 1, Neutrophils # (Auto) 6.2, Lymphocytes # (Auto) 4.7H, Monocytes # (Auto) 0.9, Eosinophils # (Auto) 0.2, Basophils # (Auto) 0.1, Sodium Level 138, Potassium Level 3.3L, Chloride Level 105, Carbon Dioxide Level 22, Anion Gap 11, Blood Urea Nitrogen 7, Creatinine 0.78, Estimat Glomerular Filtration Rate > 60, BUN/ Creatinine Ratio 9, Glucose Level 228H, Calcium Level 8.6, Corrected Calcium 9.4 , Total Bilirubin 0.2, Aspartate Amino Transf (AST/SGOT) 28, Alanine Aminotransferase (ALT/SGPT) 25, Alkaline Phosphatase 78, Total Protein 5.8L, Albumin 3.0L, Vancomycin Level Trough 6.8L 01/25/18 16:26: Glucometer 126H 01/25/18 20:22: Glucometer 184H 01/26/18 04:20: White Blood Count 12.6H, Red Blood Count 3.86L, Hemoglobin 11.6, Hematocrit 35, Mean Corpuscular Volume 90, Mean Corpuscular Hemoglobin 30, Mean Corpuscular Hemoglobin Concent 33, Red Cell Distribution Width 12.9, Platelet Count 508H, Mean Platelet Volume 9.0, Neutrophils (%) (Auto) 48, Lymphocytes (%) (Auto) 40, Monocytes (%) (Auto) 9, Eosinophils (%) (Auto) 3, Basophils (%) (Auto) 0, Neutrophils # (Auto) 6.1, Lymphocytes # (Auto) 5.0H, Monocytes # (Auto) 1.1H, Eosinophils # (Auto) 0.4H, Basophils # (Auto) 0.0, Sodium Level 141, Potassium Level 2.9L, Chloride Level 104, Carbon Dioxide Level 23, Anion Gap 14, Blood Urea Nitrogen 7, Creatinine 0.73, Estimat Glomerular Filtration Rate > 60, BUN/ Creatinine Ratio 10, Glucose Level 113H, Calcium Level 9.3, Corrected Calcium 9.9, Total Bilirubin 0.3, Aspartate Amino Transf (AST/SGOT) 28, Alanine Aminotransferase (ALT/SGPT) 27, Alkaline Phosphatase 79, Total Protein 6.1L, Albumin 3.2 Microbiology 01/22/18 Blood Culture - Preliminary, Resulted No growth 01/24/18 MRSA Screen - Final, Complete 01/22/18 Gram Stain - Final, Complete 01/22/18 Wound Culture - Final, Complete Staphylococcus aureus See Comments Assessment/Plan Assessment/Plan Assessment/Plan S/P Debridement of Left jaw abscess and necrotic tissue DM, HTN Pt looks better and jaw/neck look better (less erythema). Would leave Iodophor packing in place today and then start changing it daily. Waiting for possible Oral surgery recommendation. From surgery standpoint pt is ok to go home; with instructions on local wound care. Clinical Quality Measures DVT/VTE Risk/Contraindication: Risk Factor Score Per Nursin RFS Level Per Nursing on Admit: 4+=Very High LEONARDO PEDRO DO Jan 26, 2018 10:31
--- NOTE | 2018-01-26 10:58 | Progress Note-Hospitalist ---
Subjective HPI/CC On Admission Date Seen by Provider: Jan 26, 2018 Time Seen by Provider: 10:00 Subjective/Events-last exam Patient is doing well I&D uncomplicated Cx revealed resistance to Clindamycin which she was on so that was DC Conferred with DR Bush Objective Exam Vital Signs Vital Signs Date Time Temp Pulse Resp B/P (MAP) Pulse Ox O2 Delivery O2 Flow Rate FiO2 01/26/18 15:45 97.5 64 18 124/58 (80) 92 Room Air Capillary Refill : Less Than 3 SecondsLess Than 3 Seconds General Appearance: No Apparent Distress, WD/WN, Chronically ill, Obese Neck: Full Range of Motion, Normal Inspection, Non Tender, Supple, Carotid Bruit, Other (left mandible drainage noted) Respiratory: Chest Non Tender, Lungs Clear, Normal Breath Sounds, No Accessory Muscle Use, No Respiratory Distress Cardiovascular: Regular Rate, Rhythm, No Edema, No Gallop, No JVD, No Murmur, Normal Peripheral Pulses Neurologic/Psychiatric: Alert, Oriented x3, No Motor/Sensory Deficits, Normal Mood/Affect Skin: Normal Color, Warm/Dry Results/Procedures Lab Laboratory Tests 01/26/18 04:20 Patient resulted labs reviewed. Assessment/Plan Assessment and Plan Assess & Plan/Chief Complaint Assessment: Dental abscess with spontaneous rupture and drainage left mandible nail that abscess still present on CT scan consulting general surgery since oral surgery and ENT specialty is unavailable s/p I&D by Dr Chun and consulting DR Bush since he has returned Chronic debility requiring fci placement permanently Mental illness long-standing Diabetes mellitus Obesity Flat affect Dementia Plan: Continue IV antibiotics Vanc and DC Clinda Appreciate general surgery consultation for drainage of abscess Monitor closely Poor prognosis overall since she is so chronically debilitated Diagnosis/Problems Diagnosis/Problems (1) Status post incision and drainage Status: Acute (2) Dental abscess Status: Acute (3) Severe sepsis Status: Resolved (4) Weakness Status: Chronic (5) DM (diabetes mellitus), 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 (6) Meniere disease Status: Chronic (7) Irritable bowel syndrome Status: Chronic (8) Fibromyalgia Status: Chronic (9) GERD (gastroesophageal reflux disease) Status: Chronic (10) DVT prophylaxis Status: Acute (11) Dementia Status: Chronic Qualifiers: Dementia type: unspecified type Dementia behavioral disturbance: without behavioral disturbance Qualified Codes: F03.90 - Unspecified dementia without behavioral disturbance (12) Apathy Status: Chronic Clinical Quality Measures DVT/VTE Risk/Contraindication: Risk Factor Score Per Nursin RFS Level Per Nursing on Admit: 4+=Very High ROMMEL AMOS DO Jan 26, 2018 10:58
[2018-01-26] MEDS: HYDROcodone/APAP 7.5 MG/325 MG (LORTAB, LORCET PLUS) TABLET PO PRN ×2 (11:43→19:38)
[2018-01-26 15:45] VITALS: BP 124/58
[2018-01-26] MEDS: MAGNESIUM OXIDE (MAG-OX)400 MG TAB PO SCH (15:57)
--- NOTE | 2018-01-26 19:11 | Diagnostic Imaging Report ---
History: 67 year-old female with left-sided jaw pain for two weeks with hole in the bottom left jaw. Study: Routine mandibular Panelipse view was obtained. Comparison: CT from 01/22/2018. Findings: There is marked blurring, not only centrally but also over the left mandible, greater than typical for panoramic technique. The left mandible is suboptimally evaluated. No definite periapical lucencies are identified. There is dental hardware and amalgam. No acute fracture is identified. Impression: Suboptimal evaluation due to blurring, likely from motion artifact. No obvious periapical lucencies or acute osseous abnormality is seen. Dictated by: Dictated on workstation # [id number]
[2018-01-26] MEDS: ZIPRASIDONE 20 MG (GEODON) CAP PO SCH (20:48)
[2018-01-26] MEDS: NYSTATIN CREAM (MYCOSTATIN) 30 GM TUBE TP SCH (20:49)
[2018-01-27 00:39] VITALS: BP 135/65
[2018-01-27] MEDS: VANCOMYCIN 1500 MG/NS 500 ML IVPB IV SCH ×4 (01:03→13:07)
[2018-01-27] MEDS: HYDROcodone/APAP 7.5 MG/325 MG (LORTAB, LORCET PLUS) TABLET PO PRN (04:17)
[2018-01-27 06:07] LABS: BASOPHILS # (AUTO) 0.1 10^3/uL (0.0-0.1); BASOPHILS % (AUTO) 0 % (0-10); EOSINOPHILS # (AUTO) 0.4 10^3/uL (0.0-0.3); EOSINOPHILS % (AUTO) 2 % (0-10); HEMATOCRIT 34 % (35-52); HEMOGLOBIN 11.3 G/DL (11.5-16.0); LYMPHOCYTES # (AUTO) 5.6 X 10^3 (1.0-4.0); LYMPHOCYTES % (AUTO) 39 % (12-44); MEAN CORPUSCULAR HEMOGLOBIN 30 PG (25-34); MEAN CORPUSCULAR HGB CONC 34 G/DL (32-36); MEAN CORPUSCULAR VOLUME 89 FL (80-99); MEAN PLATELET VOLUME 9.2 FL (7.4-10.4); MONOCYTES # (AUTO) 1.1 X 10^3 (0.0-1.0); MONOCYTES % (AUTO) 8 % (0-12); NEUTROPHILS # (AUTO) 7.2 X 10^3 (1.8-7.8); NEUTROPHILS % (AUTO) 50 % (42-75); PLATELET COUNT 450 10^3/uL (130-400); RED BLOOD COUNT 3.77 10^6/uL (4.35-5.85); RED CELL DISTRIBUTION WIDTH 12.7 % (10.0-14.5); WHITE BLOOD COUNT 14.3 10^3/uL (4.3-11.0)
[2018-01-27] MEDS: ZIPRASIDONE 40 MG (GEODON) CAP PO SCH (06:13)
[2018-01-27] MEDS: inSUlin ASPART (NovoLOG) 1 UNIT/0.01 ML (CHARGE PER UNIT) SC SCH ×2 (06:13→11:08)
[2018-01-27] MEDS: PANTOPRAZOLE 20 MG TABLET (PROTONIX) PO SCH (06:13)
[2018-01-27] MEDS: GLIMEPIRIDE 4 MG (AMARYL) TAB PO SCH (06:13)
[2018-01-27 06:27] LABS: ALANINE AMINOTRANSFERASE 26 U/L (0-55); ALBUMIN 3.1 GM/DL (3.2-4.5); ALKALINE PHOSPHATASE 83 U/L (40-136); BILIRUBIN,TOTAL 0.3 MG/DL (0.1-1.0); BUN/CREATININE RATIO 8; CALCIUM 8.9 MG/DL (8.5-10.1); CARBON DIOXIDE 21 MMOL/L (21-32); CHLORIDE 106 MMOL/L (98-107); CREATININE SERUM 0.73 MG/DL (0.60-1.30); GFR ESTIMATED > 60; GLUCOSE 123 MG/DL (70-105); POTASSIUM 3.2 MMOL/L (3.6-5.0); SODIUM 140 MMOL/L (135-145); TOTAL PROTEIN 5.9 GM/DL (6.4-8.2)
[2018-01-27 07:17] LABS: BAND NEUTROPHILS 0 %; BASOPHILS % (MANUAL) 1 %; EOSINOPHILS % (MANUAL) 3 %; LYMPHOCYTES % (MANUAL) 45 %; MONOCYTES % (MANUAL) 4 %; NEUTROPHILS % (MANUAL) 47 %; RBC MORPH NORMAL
[2018-01-27 08:00] VITALS: BP 138/62
[2018-01-27] MEDS: ASPIRIN 81 MG CHEW (CHILDREN'S ASA) PO SCH (08:55)
[2018-01-27] MEDS: FUROSEMIDE 20 MG (LASIX) TAB PO SCH (08:55)
[2018-01-27] MEDS: ATENOLOL 25 MG (TENORMIN) TAB PO SCH (08:55)
[2018-01-27] MEDS: ENOXAPARIN 40 MG/0.4 ML (LOVENOX) SYR SQ SCH (08:56)
[2018-01-27] MEDS: MAGNESIUM OXIDE (MAG-OX)400 MG TAB PO SCH (08:56)
[2018-01-27] MEDS: DICYCLOMINE 10 MG (BENTYL) CAP PO SCH ×2 (08:56→13:18)
[2018-01-27] MEDS: KCL 10 MEQ TAB (MICRO K) PO SCH ×2 (08:56→13:18)
[2018-01-27] MEDS: NYSTATIN CREAM (MYCOSTATIN) 30 GM TUBE TP SCH ×2 (08:56→13:19)
[2018-01-27] MEDS: DULoxetine 30 MG (CYMBALTA) CAP PO SCH (08:56)
[2018-01-27] MEDS ORDERED: DOXY-227 PO (09:21)
[2018-01-27] MEDS ORDERED: MAGN400T6 PO (09:21)
[2018-01-27] MEDS ORDERED: HYDR-3816 PO (09:21)
[2018-01-27] MEDS ORDERED: NYST15CR TP (09:21)
--- NOTE | 2018-01-27 09:24 | Discharge Summary-Hospitalist ---
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 (6) Meniere disease Status: Chronic (7) Irritable bowel syndrome Status: Chronic (8) Fibromyalgia Status: Chronic (9) GERD (gastroesophageal reflux disease) Status: Chronic (10) DVT prophylaxis Status: Acute (11) Dementia Status: Chronic (12) Apathy Status: Chronic Discharge Summary Discharge Physical Exam Allergies: Coded Allergies: cephalexin (Verified Allergy, Mild, RASH, 06/30/17) Penicillins (Verified Allergy, Unknown, 12/07/13) Sulfa (Sulfonamide Antibiotics) (Unverified Allergy, Unknown, 12/07/13) Vitals & I&Os Vital Signs Date Time Temp Pulse Resp B/P (MAP) Pulse Ox O2 Delivery O2 Flow Rate FiO2 01/27/18 08:00 98.7 86 20 138/62 (87) 93 01/26/18 20:00 Room Air General Appearance: No Apparent Distress, WD/WN, Chronically ill, Obese Respiratory: Chest Non Tender, Lungs Clear, Normal Breath Sounds, No Accessory Muscle Use, No Respiratory Distress Cardiovascular: Regular Rate, Rhythm, No Edema, No Gallop, No JVD, No Murmur, Normal Peripheral Pulses Neurologic/Psychiatric: Alert, Oriented x3, No Motor/Sensory Deficits, Normal Mood/Affect Hospital Course Hospital course: Patient had a lengthy hospital course that included severe sepsis due to left tooth abscess that required broad-spectrum antibiotics of clindamycin and vancomycin and aggressive IV fluids. Overall patient improved rapidly but drainage of the abscess down through the mandible required incision and drainage and ENT and oral surgery were both unavailable so Dr. Chun was consulted and graciously performed that procedure in an uncomplicated manner and cultures revealed resistance to clindamycin so vancomycin was maintained and will need tooth extraction the day of discharge by Dr. Bush and placement of doxycycline twice a day for an additional 7 days will be prescribed to complete at the alf. Overall she did well but overall poor prognosis due to chronic debility and apathy precludes anything but a poor prognosis. Labs (last 24 hrs) Laboratory Tests 01/26/18 11:23: Glucometer 235H 01/26/18 15:56: Glucometer 95 01/26/18 20:35: Glucometer 211H 01/27/18 05:22: Glucometer 127H 01/27/18 05:50: White Blood Count 14.3H, Red Blood Count 3.77L, Hemoglobin 11.3L, Hematocrit 34L , Mean Corpuscular Volume 89, Mean Corpuscular Hemoglobin 30, Mean Corpuscular Hemoglobin Concent 34, Red Cell Distribution Width 12.7, Platelet Count 450H, Mean Platelet Volume 9.2, Neutrophils (%) (Auto) 50, Lymphocytes (%) (Auto) 39, Monocytes (%) (Auto) 8, Eosinophils (%) (Auto) 2, Basophils (%) (Auto) 0, Neutrophils # (Auto) 7.2, Lymphocytes # (Auto) 5.6H, Monocytes # (Auto) 1.1H, Eosinophils # (Auto) 0.4H, Basophils # (Auto) 0.1, Neutrophils % (Manual) 47, Lymphocytes % (Manual) 45, Monocytes % (Manual) 4, Eosinophils % (Manual) 3, Basophils % (Manual) 1, Band Neutrophils 0, Blood Morphology Comment NORMAL, Sodium Level 140, Potassium Level 3.2L, Chloride Level 106, Carbon Dioxide Level 21, Anion Gap 13, Blood Urea Nitrogen 6L, Creatinine 0.73, Estimat Glomerular Filtration Rate > 60, BUN/Creatinine Ratio 8, Glucose Level 123H, Calcium Level 8.9, Corrected Calcium 9.6, Total Bilirubin 0.3, Aspartate Amino Transf (AST/SGOT) 25, Alanine Aminotransferase (ALT/SGPT) 26, Alkaline Phosphatase 83, Total Protein 5.9L, Albumin 3.1L Microbiology 01/22/18 Blood Culture - Preliminary, Resulted No growth 01/24/18 MRSA Screen - Final, Complete 01/25/18 Gram Stain - Final, Resulted 01/25/18 Anaerobic Culture, Resulted Pending 01/25/18 Surgical Culture - Preliminary, Resulted Culture In Progress Patient resulted labs reviewed. Pending Labs Laboratory Tests 01/27/18 05:22: Glucometer 127 01/27/18 05:50: White Blood Count 14.3, Red Blood Count 3.77, Hemoglobin 11.3, Hematocrit 34, Mean Corpuscular Volume 89, Mean Corpuscular Hemoglobin 30, Mean Corpuscular Hemoglobin Concent 34, Red Cell Distribution Width 12.7, Platelet Count 450, Mean Platelet Volume 9.2, Neutrophils (%) (Auto) 50, Lymphocytes (%) (Auto) 39, Monocytes (%) (Auto) 8, Eosinophils (%) (Auto) 2, Basophils (%) (Auto) 0, Neutrophils # (Auto) 7.2, Lymphocytes # (Auto) 5.6, Monocytes # (Auto) 1.1, Eosinophils # (Auto) 0.4, Basophils # (Auto) 0.1, Neutrophils % (Manual) 47, Lymphocytes % (Manual) 45, Monocytes % (Manual) 4, Eosinophils % (Manual) 3, Basophils % (Manual) 1, Band Neutrophils 0, Blood Morphology Comment NORMAL, Sodium Level 140, Potassium Level 3.2, Chloride Level 106, Carbon Dioxide Level 21, Anion Gap 13, Blood Urea Nitrogen 6, Creatinine 0.73, Estimat Glomerular Filtration Rate > 60, BUN/Creatinine Ratio 8, Glucose Level 123, Calcium Level 8.9, Corrected Calcium 9.6, Total Bilirubin 0.3, Aspartate Amino Transf (AST/ SGOT) 25, Alanine Aminotransferase (ALT/SGPT) 26, Alkaline Phosphatase 83, Total Protein 5.9, Albumin 3.1 Discussion & Recommendations Discharge Planning: <30 minutes discharge planning Discharge Home Medications: Active Scripts Active Doxycycline Hyclate 100 Mg Tablet.dr 100 Mg PO BID Nystatin 15 Gm Cream..g. 0 Gm TP TID Magnesium Oxide 400 Mg Tablet 400 Mg PO BIDPC Hydrocodone-Acetamin 7.5-325 (Hydrocodone/Acetaminophen) 1 Each Tablet 1 Each PO Q8H PRN MDD 6 Cyclobenzaprine Hcl (Cyclobenzaprine HCl) 10 Mg Tablet 1 Each PO Q8H PRN Reported Aspir 81 (Aspirin) 81 Mg Tablet.dr 81 Mg PO DAILY Dicyclomine HCl 20 Mg Tablet 20 Mg PO TID Potassium Chloride 10 Meq Tablet.er 20 Meq PO BID Furosemide 20 Mg Tablet 20 Mg PO DAILY Metformin HCl 1,000 Mg Tablet 1,000 Mg PO BID Victoza 3-Gianni (Liraglutide) 0.6 Mg/0.1 Ml Pen.injctr 0.6 Mg SQ DAILY Geodon (Ziprasidone HCl) 20 Mg Capsule 40 Mg PO DAILY Ziprasidone HCl 20 Mg Capsule 20 Mg PO HS Pantoprazole Sodium 20 Mg Tablet.dr 20 Mg PO DAILY Glimepiride 4 Mg Tablet 4 Mg PO DAILY Atenolol 25 Mg Tablet 25 Mg PO DAILY Cymbalta (Duloxetine HCl) 60 Mg Capsule.dr 60 Mg PO DAILY Niferex (Polysaccharide Iron Complex) 150 Mg Cap 150 Mg PO BID Hydrochlorothiazide 12.5 Mg Tablet 12.5 Mg PO BID Instructions to patient/family Please see electronic discharge instructions given to patient. Clinical Quality Measures DVT/VTE Risk/Contraindication: Risk Factor Score Per Nursin RFS Level Per Nursing on Admit: 4+=Very High Problem Qualifiers (1) Dementia: Dementia type: unspecified type Dementia behavioral disturbance: without behavioral disturbance Qualified Codes: F03.90 - Unspecified dementia without behavioral disturbance ROMMEL AMOS DO Jan 27, 2018 09:24
[2018-01-27] MEDS ORDERED: SENN-140 PO (10:21)
[2018-01-27] MEDS ORDERED: POLY17PO6 PO (10:21)
[2018-01-27] MEDS ORDERED: TROUGH ORDER-PHARMACY XX NR (12:00)
== END 2018-01-27 15:43 | DRG 854 ==
LOC: EDUNIT# 14:03 → ER 14:05 → 4TH 16:30
PROVIDERS: ADMIT Family Medicine; ATTEND Family Medicine
PROC: 0JB10ZZ Excision of Face Subcutaneous Tissue and Fascia, Open Approach (ICD-10-PCS; principal; 2018-01-25 09:00)
DX: A41.9 Sepsis, unspecified organism (principal); R65.20 Severe sepsis without septic shock; K04.7 Periapical abscess without sinus; M27.2 Inflammatory conditions of jaws; Z68.41 Body mass index [BMI] 40.0-44.9, adult; E11.42 Type 2 diabetes mellitus with diabetic polyneuropathy; E11.49 Type 2 diabetes mellitus with other diabetic neurological complication; N31.9 Neuromuscular dysfunction of bladder, unspecified; H81.09 Meniere's disease, unspecified ear; F29 Unspecified psychosis not due to a substance or known physiological condition; I10 Essential (primary) hypertension; K58.9 Irritable bowel syndrome, unspecified; M79.7 Fibromyalgia; K21.9 Gastro-esophageal reflux disease without esophagitis; M54.9 Dorsalgia, unspecified; F41.9 Anxiety disorder, unspecified; Z79.4 Long term (current) use of insulin; F32.9 Major depressive disorder, single episode, unspecified; F17.210 Nicotine dependence, cigarettes, uncomplicated; M81.0 Age-related osteoporosis without current pathological fracture; E66.9 Obesity, unspecified; F03.90 Unspecified dementia, unspecified severity, without behavioral disturbance, psychotic disturbance, mood disturbance, and anxiety; R45.3 Demoralization and apathy
CPT/HCPCS: 36415; 70355; 70491; 80048; 80053; 80202; 82962; 83605; 85007; 85025; 85027; 85610; 85730; 87040; 87070; 87075; 87077; 87081; 87186; 87205; 96374; 96375

== ENCOUNTER 2019-03-06 01:49 | Emergency (ER) | payer MEDICAID ==
[~2019-03-06] VITALS: Ht 152 cm; Wt 86.0 kg
[~2019-03-06 01:49] MED LIST changes: +ASPI-586 PO; +DOXY-227 PO; +GLIM4TAB PO; +HYDR-3816 PO; +LIRA0.6P3 SQ; +MAGN400T6 PO; +METF-399 PO; +NYST15CR TP; +PANT20TA3 PO; +POLY17PO6 PO; +POTA10TA10 PO; +SENN-141 PO; +ZIPR20CA23 PO; +ZIPR20CA24 PO
[2019-03-06] MEDS ORDERED: KETOROLAC 30 MG/ML VIAL IM ONE (02:15)
[2019-03-06] MEDS ORDERED: LIDOCAINE TOPICAL 4% 50 ML BTL TP ONE (02:15)
[2019-03-06] MEDS ORDERED: LIDOCAINE TOPICAL 4% 50 ML BTL ONE (02:25)
[2019-03-06] MEDS ORDERED: LIDOCAINE 2% VISCOUS 15 ML UDC PO ONE ×2 (02:45→03:30)
--- NOTE | 2019-03-06 03:13 | ED General ---
General Chief Complaint: Skin/Wound Problems Stated Complaint: SHINGLES Nursing Triage Note: PT PRESENTS TO ED VIA EMS TO ROOM SEVEN C/O PAIN R/T SHINGLES LESIONS OF THE TORSO. PT STATES HER PAIN IS 10/10 AND NOT RELIEVED BY MEDS SHE IS CURRENTLY PRESCRIBED. Nursing Sepsis Screen: No Definite Risk Source of Information: Patient, EMS, Custodial Records Exam Limitations: No Limitations History of Present Illness Date Seen by Provider: Mar 06, 2019 Time Seen by Provider: 01:53 Initial Comments This 68-year-old woman presents to the emergency room with reported severe pain from shingles. She has been struggling with shingles for a couple of weeks. The rash is in the healing stage but is still quite painful. Hydrocodone has not been sufficient to alleviate her pain. She has already finished the acyclovir. Allergies and Home Medications Allergies Coded Allergies: cephalexin (Verified Allergy, Mild, RASH, 06/30/17) Penicillins (Verified Allergy, Unknown, 12/07/13) Sulfa (Sulfonamide Antibiotics) (Unverified Allergy, Unknown, 12/07/13) Home Medications Aspirin 81 Mg Tablet.dr, 81 MG PO DAILY, (Reported) Atenolol 25 Mg Tablet, 25 MG PO DAILY, (Reported) Cyclobenzaprine Hcl 10 Mg Tablet, 1 EACH PO Q8H PRN for SPASMS Prescribed by: CHRISSY WYATT on 09/18/14 0953 Dicyclomine HCl 20 Mg Tablet, 20 MG PO TID, (Reported) Doxycycline Hyclate 100 Mg Tablet.dr, 100 MG PO BID Prescribed by: ROMMEL AMOS on 01/27/18 09 Duloxetine Hcl 60 Mg Capsule.dr, 60 MG PO DAILY, (Reported) Furosemide 20 Mg Tablet, 20 MG PO DAILY, (Reported) Glimepiride 4 Mg Tablet, 4 MG PO DAILY, (Reported) Hydrocodone/Acetaminophen 1 Each Tablet, 1 EACH PO Q8H PRN for PAIN-MODERATE Prescribed by: ROMMEL AMOS on 01/27/18 09 Lidocaine HCl 35 Gm Oint, 35 GM TP Q4H PRN for PAIN-MODERATE (5-7) Prescribed by: NABIL VELASCO on 03/06/19 0318 Liraglutide 0.6 Mg/0.1 Ml Pen.injctr, 0.6 MG SQ DAILY, (Reported) Magnesium Oxide 400 Mg Tablet, 400 MG PO BIDPC Prescribed by: ROMMEL AMOS on 01/27/18920 Metformin HCl 1,000 Mg Tablet, 1,000 MG PO BID, (Reported) Nystatin 15 Gm Cream..g., 0 GM TP TID Prescribed by: ROMMEL AMOS on 01/27/18920 Pantoprazole Sodium 20 Mg Tablet.dr, 20 MG PO DAILY, (Reported) Polyethylene Glycol 3350 17 Gm Powd.pack, 17 GM PO BID Prescribed by: ROMMEL AMOS on 01/27/18 102 Polysaccharide Iron Complex 150 Mg Cap, 150 MG PO BID, (Reported) Potassium Chloride 10 Meq Tablet.er, 20 MEQ PO BID, (Reported) Sennosides 8.6 Mg Tablet, 8.6 MG PO BID Prescribed by: ROMMEL AMOS on 01/27/18 102 Ziprasidone HCl 20 Mg Capsule, 20 MG PO HS, (Reported) Ziprasidone HCl 20 Mg Capsule, 40 MG PO DAILY, (Reported) Patient Home Medication List Home Medication List Reviewed: Yes Review of Systems Review of Systems Constitutional: no symptoms reported EENTM: no symptoms reported Respiratory: no symptoms reported Cardiovascular: no symptoms reported Gastrointestinal: no symptoms reported Genitourinary: no symptoms reported : No Musculoskeletal: no symptoms reported Skin: see HPI Psychiatric/Neurological: No Symptoms Reported Hematologic/Lymphatic: No Symptoms Reported Past Exrrpgm-Atygdc-Qoggsm Hx Past Med/Social Hx: Reviewed and Corrections made Patient Social History Alcohol Use: Denies Use Recreational Drug Use: No Smoking Status: Former Smoker Type Used: Cigarettes 2nd Hand Smoke Exposure: No Recent Foreign Travel: No Contact w/Someone Who Travel: No Recent Infectious Disease Expo: No Recent Hopitalizations: Yes (prior surgeries listed, multiple hospitalizations) Physical Abuse: No Sexual Abuse: No Mistreated: No Fear: No Immunizations Up To Date Tetanus Booster (TDap): Unknown Date of Pneumonia Vaccine: Dec 07, 2011 Date of Influenza Vaccine: Jan 13, 2018 Seasonal Allergies Seasonal Allergies: No Past Medical History Surgeries: Yes (listed) Appendectomy, Bladder Surgery, Hysterectomy, Orthopedic Respiratory: No Cardiac: No Neurological: Yes Concussion, Neuropathy : No Reproductive Disorders: No 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 Sexually Transmitted Disease: No HIV/AIDS: No Genitourinary: Yes Bladder Infection, Kidney Stones, UTI-Chronic Gastrointestinal: Yes Irritable Bowel Musculoskeletal: Yes Osteoporosis, Chronic Back Pain Endocrine: No Diabetes, Non-Insulin dep Hearing Impairment: Hard of Hearing Cancer: No Psychosocial: Yes Depression Integumentary: Yes (shingles) Blood Disorders: Yes Adverse Reaction/Blood Tranf: No Family Medical History No Pertinent Family Hx, Cancer, Diabetes Physical Exam Vital Signs Vital Signs - First Documented 03/06/19 01:52 Temp 36.9 Pulse 66 Resp 20 B/P (MAP) 183/90 (121) Pulse Ox 97 O2 Delivery Room Air Capillary Refill : Less Than 3 Seconds Height, Weight, BMI Height: 5'0.00" Weight: 207lbs. 0.0oz. 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 as Tested Skin: Normal Color, Warm/Dry, Rash (healing shingles rash on the left side of the abdomen and torso) Progress/Results/Core Measures Suspected Sepsis Recent Fever Within 48 Hours: No Infection Criteria Present: None New/Unexplained Altered Menta: No Sepsis Screen: No Definite Risk SIRS Temperature: Pulse: 66 Respiratory Rate: 20 Blood Pressure 183 /90 Mean: 121 Results/Orders My Orders Orders - NABIL ANDERSON MD Lidocaine 4% Topical (Xylocaine Topical (03/06/19 02:15) Ketorolac Injection (Toradol Injection) (03/06/19 02:15) Lidocaine 4% Topical (Xylocaine Topical (03/06/19 02:25) Lidocaine 2% Viscous 15 Ml (Xylocaine Vi (03/06/19 02:45) Lidocaine 2% Viscous 15 Ml (Xylocaine Vi (03/06/19 03:30) Medications Given in ED Current Medications Medications Dose Ordered Sig/Santos Route Start Time Stop Time Status Last Admin Dose Admin Ketorolac Tromethamine 30 mg ONCE ONCE IM 03/06/19 02:15 03/06/19 02:16 DC 03/06/19 02:26 30 MG Lidocaine HCl 5 ml ONCE ONCE PO 03/06/19 02:45 03/06/19 02:46 DC 03/06/19 02:52 5 ML Vital Signs/I&O 03/06/19 01:52 Temp 36.9 Pulse 66 Resp 20 B/P (MAP) 183/90 (121) Pulse Ox 97 O2 Delivery Room Air Capillary Refill : Less Than 3 Seconds Blood Pressure Mean: 121 POS Progress Note : Progress Note Toradol injection provided minor relief of pain. Viscous lidocaine was applied topically which provided her with significant relief of pain. See discharge instructions. Departure Impression Primary Impression: Shingles Qualified Codes: B02.9 - Zoster without complications Disposition: HOME, SELF-CARE Condition: Improved Departure-Patient Inst. Decision time for Depature: 03:09 Referrals: ELAN DUMONT MD (PCP/Family) Primary Care Physician Patient Instructions: Shingles (DC) Add. Discharge Instructions: You may add ibuprofen up to 400 mg every 8 hours as needed for additional pain relief. Apply a thin layer of topical lidocaine as prescribed to the most painful areas as directed. Contact primary care provider if these measures do not control the pain. All discharge instructions reviewed with patient and/or family. Voiced understanding. Scripts Lidocaine HCl (Lidocaine) 35 Gm Oint 35 GM TP Q4H PRN for PAIN-MODERATE (5-7), #1 TUBE 2 Refills Prov: NABIL ANDERSON MD 03/06/19 Copy Copies To 1: ELAN DUMONT MD, JOSHUA T MD Mar 06, 2019 03:13 POS
[2019-03-06] MEDS ORDERED: LD5O35 TP (03:18)
[2019-03-06 03:30] VITALS: BP 175/74
--- OUTSIDE RECORDS SUMMARY | 2019-03-30 14:00 | XMS REPORT ---
Author Author Sharifa Cano Doctor Organization [facility] Address Unknown Phone Unavailable Care Team Providers Care Chart Writer Name Role Phone Migration, Doctor Unavailable Unavailable PROBLEMS Type Condition ICD9-CM Code DMK44-ZS Code Onset Dates Condition S tatus SNOMED Code Problem Nicotine abuse Z72.0 Active 35497 008 Problem Psychosis, unspecified psychosis type F29 Active 17738343 Problem Fibromyalgia M79.7 Active 1112760 05 Problem Chronic pain disorder G89.4 Active 183176064 Problem Meniere disease, unspecified laterality H81.09 Active 83115040 Problem Irritable bowel syndrome with diarrhea K58.0 Active 930333678 Problem Lumbar disc disease M51.9 Active 69872858 Problem Type 2 diabetes mellitus wit hout complication, without long-term current use of insulin E11.9 Active 986159061 Problem Insomnia, unspecified type G47.00 Act craig 321242933 Problem Other chronic pain G89.29 Active 8 6433860 Problem Gastroesophageal reflux disease without esophagitis K21.9 Active 313432956 Problem Migraine without aura and without status migrain osus, not intractable G43.009 Active 821345880 Problem Neurogenic bladder N31.9 Active 3 38286089 Problem Major depressive disorder, recurrent, moderate F33 .1 Active 40402884 Problem Polyneuropathy associated with underlying disease G63 Active 885488901 Problem Generalized anxiety disorder F41.1 A ctive 81082500 Problem Anxiety F41.9 Active 07137994 Problem Type 2 diabetes mellitus wit h diabetic neuropathy, without long-term current use of insulin E11.40 Active 37198 006 Problem Intractable migraine without aura and with status migr ainosus G43.011 Active 688487524 ALLERGIES Substance Reaction Event Type Date Status Penicillins Unknown Non Drug Allergy Jul, Active Sulfa(sulfonamide Antibiotics) Unknown Non Drug Allergy Jul Active ENCOUNTERS Encounter Location Date Diagnosis [facility] [address] [id number] [address] [place] [address] Sep, [facility] [address] [id number] [address] [place] [address] Sep, [facility]bar disc [facility]51.9 [facility] [address] [place] [id number] Sep, Major depressive disorder, recurrent, moderate F33.1 and Neurocognitive disorder R41.[address] [address] Sep, Lumbar disc disease M51.9 [facility] [address] [id number] [address] [place] [address] Sep, [facility] [address] [id number] [address] [place] [address] August, Migraine without aura and wi thout status migrainosus, not intractable G43.009 [facility] [address] [id number] [address] [place] [address] August, Type 2 diabetes mellitus wit hout complication, without long-term current use of insulin E11.9 [facility] [address] [place] [id number] August, Intractable migraine without aura and with status migrainosus G43.011 ; Type 2 diabetes mellitus without complication, without long-term current use of insulin E11.9 ; Lumbar disc disease M51.9 and Polyneuropathy associated with underlying disease G63 [facility] [address] [id number] [address] [place] [address] August, Lumbar disc disease M51.9 [facility] [address] [id number] [address] [place] [address] Jul, [facility] [address] [id number] [address] [place] [address] Jul, [facility] [address] [id number] [address] [place] [address] Jul, Type 2 diabetes mellitus wit h diabetic neuropathy, without long- term current use of insulin E11.40 [facility] [address] [id number] [address] [place] [address] Jul, [facility] [address] [id number] [address] [place] [address] Jul, Lumbar disc disease M51.9 [facility] [place] [address] [place] [id number] Jun, Type 2 diabetes mellitus with diabetic neuropathy, without long-term current use of insulin E11.40 and Fibromyalgia M79.7 [facility] [address] [id number] [address] [place] [address] Jun, Lumbar disc disease M51.9 [facility] [address] [id number] [address] [place] [address] May, [facility] [address] [id number] [address] [place] [address] May, [facility] [address] [id number] [address] [place] [address] May, [facility] [address] [id number] [address] [place] [address] May, Lumbar disc disease [facility]51.9 [facility] [address] [place] [id number] Apr, Type 2 diabetes mellitus without complication, without long-term current use of insulin E11.9 ; Gastroesophageal reflux disease without esophagitis K21.9 ; Irritable bowel syndrome, unspecified type K58.9 and Bilateral impacted cerumen H61.23 [facility] [address] [id number] [address] [place] [address] Apr, [facility] [address] [id number] [address] [place] [address] Apr, Lumbar disc disease M51.9 [facility] [address] [id number] [address] [place] [address] Apr, [facility] [address] [id number] [address] [place] [address] Mar, [facility] [address] [id number] [address] [place] [address] Mar, Lumbar disc disease M51.9 [facility] [address] [place] [id number] Feb, Polyneuropathy associated with underlying disease G63 and Type 2 diabetes mellitus without complication, without long-term current use of insulin E11.9 [facility] [address] [id number] [address] [place] [address] Feb, [facility] [address] [id number] [address] [place] [address] Feb, Lumbar disc disease M51.9 [facility] [address] [id number] [address] [place] [address] Feb, [facility] [address] [id number] [address] [place] [address] Feb, Gastroesophageal reflux dise ase without esophagitis K21.9 [facility] [address] [id number] [address] [place] [id number] Jan, Dental examination Z01.20 [facility] [address] [id number] [address] [place] [address] Jan, Tooth abscess K04.7 [facility] [address] [id number] [address] [place] [phone] 15 Jan, 2018 Lumbar disc disease M51.9 [facility] [address] [id number] [address] [place] [address] Jan, [facility] [address] [id number] [address] [place] [phone] 14 Dec, 2017 Lumbar disc disease M51.9 [facility] [address] [place] [id number] 13 Dec, 2017 Other acute back pain M54.9 and Lumbar disc disease M51.9 [facility] [address] [id number] [address] [place] [address] Nov, Lumbar disc disease M51.9 [facility] [address] [id number] [address] [place] [address] Nov, [facility] [address] [id number] [address] [place] [address] Oct, Lumbar disc disease M51.9 [facility] [address] [id number] [address] [place] [address] Oct, [facility] [id number] Oct, Polyneuropathy associated with underlying disease G63 ; Type 2 diabetes mellitus without complication, without long-term current use of insulin E11.9 and Family history of CVA Z82.3 [facility] [address] [id number] [address] [place] [address] Sep, Lumbar disc disease M51.9 [place] [address] [id number] [address] [place] [phone] Sep, [facility] [facility] [address] [id number] [address] [place] [address] August, Lumbar disc disease M51.9 [facility] [facility] [address] [id number] [address] [place] [address] August, [facility] [id number] August, Meniere''s disease, unspecified laterality H81.09 and Type 2 diabetes mellitus without complication, without long-term current use of insulin E11.9 [place] [facility] [address] [id number] [address] [place] [address] August, BMI 40.0-44.9, adult Z68.41 and Anxiety F41.9 [place] [address] [id number] [address] [place] [address] Jul, Lumbar disc disease M51.9 [place] [address] [id number] [address] [place] [address] Jul, Generalized anxiety disorder F41.1 [place] [address] [id number] [address] [place] [phone] Jul, [facility] [facility] [address] [id number] [address] [place] [address] Jul, Lumbar disc disease M51.9 [facility] [address] [place] [id number] Jun, Urinary tract infection without hematuria, site unspecified N39.0 ; Bilateral impacted cerumen H61.23 ; Loose stools R19.5 and Type 2 diabetes mellitus without complication, without long-term current use of insulin E11.9 [place] [address] [id number] [address] [place] [phone] Jun, [facility] [facility] [address] [id number] [address] [place] [address] Jun, Fibromyalgia M79.7 [place] [address] [place] [id number] [address] [place] [address] Jun, Breast mass, right N63.10 [place] [address] [id number] [address] [place] [phone] 09 Jun, 2017 Breast mass, right N63.10 [facility] [address] [place] [id number] Jun, Breast mass, right N63.10 ; Type 2 diabetes mellitus without complication, without long-term current use of insulin E11.9 and Fibromyalgia M79.7 [place] [address] [id number] [address] [place] [address] Jun, Gastroesophageal reflux dise ase without esophagitis K21.9 [place] [address] [place] [id number] [facility] [place] [id number] Jun, Lumbar disc disease M51.9 [place] [address] [id number] [address] [place] [phone] May, [place] [address] [place] [id number] [facility] [place] [id number] May, [facility] [address] [id number] [place] [id number] May, [facility] [address] [id number] [place] [id number] May, Lumbar disc disease M51.9 [facility] [address] [id number] [place] [id number] Apr, [facility] [address] [id number] Apr, Viral upper respiratory tract infection J06.9 and Impacted cerumen, bilateral H61.23 [facility] [address] [id number] [place] [id number] Apr, [facility] [address] [id number] [address] [place] [phone] Apr, [facility] [address] [id number] [place] [id number] Apr, Lumbar disc disease M51.[address] [facility] [address] [id number] Mar, Lumbar disc disease M51.9 and Fibromyalgia M79.7 [facility] [address] [id number] [address] [place] [address] Mar, [facility] [address] [id number] [place] [id number] Feb, [facility] [address] [id number] [address] [place] [address] Jan, Type 2 diabetes mellitus wit hout complication, without long-term current use of insulin E11.[address] [id number] Jan, Type 2 diabetes mellitus without complication, without long-term current use of insulin E11.9 ; Fibromyalgia M79.7 and Lumbar disc disease M51.9 [facility] [address] [id number] [place] [id number] Jan, [facility] [address] [id number] [place] [id number] Jan, [facility] [address] [id number] [address] [place] [address], [place] [address] Dec, [facility] [address] [id number] [place] [id number] Dec, [facility] [address] [id number] [place] [id number] Dec, [facility] [address] [id number] [place] [id number] Nov, Pre-procedure lab exam Z01.812 [facility] [address] [id number] [address] [place] [address] Nov, Ventral hernia without obstr uction or gangrene K43.9 [facility] [address] [id number] [place] [id number] Nov, [facility] [address] [id number] [place] [id number] Nov, [facility] [address] [place] [id number] Nov, Ventral hernia without obstruction or gangrene K43.9 [facility] [address] [place] [id number] Nov, Fibromyalgia M79.7 and Polyneuropathy associated with underlying disease G63 [facility] [address] [id number] [address] [place] [address] Oct, [facility] [address] [id number] [place] [id number] Oct, [facility] [address] [id number] [place] [id number] Oct, [facility] [address] [id number] [place] [id number] Oct, [facility] [address] [id number] [place] [id number] Sep, [facility] [address] [id number] [facility] [address] Sep, [facility] [address] [id number] [facility] [address] Sep, [facility] [address] [id number] [address] [place] [address], [place] [address] August, [facility] [address] [facility] [place] [id number] August, Right medial knee pain M25.561 [facility] [address] [id number] [address] [place] [address], [place] [address] August, [facility] [address] [id number] [address] [place] [address], [place] [address] August, [facility] [address] [id number] [address] [place] [address], [place] [address] August, [facility] [address] [id number] [place] [id number] August, [facility] [address] [id number] [address] [place] [address], [place] [address] August, [facility] [address] [id number] [place] [id number] August, [facility] [address] [id number] [place] [id number] Jul, [facility] [address] [id number] [address] [place] [address], [place] [address] Jul, [facility] [address] [id number] [place] [id number] Jul, [facility] [address] [id number] [address] [place] [address] Jun, [facility] [address] [id number] [address] [place] [address], [place] [address] Jun, [facility] [address] [id number] [address] [place] [address] May, [facility] [address] [id number] [address] [place] [address] May, [facility] [address] [id number] [address] [place] [address] May, [facility] [address] [id number] [address] [place] [address] May, [facility] [address] [id number] [address] [place] [address] Apr, [facility] [address] [place] [id number] Apr, Upper respiratory infection with cough and congestion J06.9 [facility] [address] [id number] [place] [id number] Apr, [facility] [address] [id number] [address] [place] [address] Apr, [facility] [address] [id number] [address] [place] [address] Mar, [facility] [address] [id number] [address] [place] [address] Mar, [facility] [address] [id number] [address] [place] [address] Mar, Other chronic pain G89.29 [facility] [address] [id number] [address] [place] [address] Mar, [facility] [address] [id number] [address] [place] [address] Mar, [facility] [address] [id number] [address] [place] [address] Feb, [facility] [address] [id number] [address] [place] [address] Feb, [facility] [address] [place] [id number] Feb, Insomnia, unspecified type G47.00 and Swelling of face R22.0 [facility] [address] [id number] [address] [place] [address] Feb, [facility] [address] [id number] [address] [place] [address] Feb, [facility] [address] [id number] [address] [place] [address] Feb, [facility] [address] [id number] [address] [place] [address] Feb, [facility] [address] [id number] [address] [place] [address] 24 Jan, 2016 [facility] [address] [id number] [address] [place] [address] Jan, [facility] [address] [id number] [address] [place] [address] Jan, Neurogenic bladder N31.9 [facility] [address] [id number] [address] [place] [address] Jan, [facility] [address] [id number] [address] [place] [address] Jan, [facility] [address] [id number] [address] [place] [address] Jan, [facility] [address] [id number] [address] [place] [phone] Jan, [facility] [address] [id number] [address] [place] [address] Jan, Screening for breast cancer Z12.39 [facility] [address] [id number] [address] [place] [address] Jan, [facility] [address] [id number] [address] [place] [address] Dec, Type 2 diabetes mellitus wit hout complication, without long-term current use of insulin E11.9 ; Lumbar disc disease M51.9 ; Polyneuropathy associated with underlying disease G63 and Neurogenic bladder N31.9 [facility] [address] [id number] [address] [place] [address] 16 Dec, 2015 [facility] [address] [id number] [address] [place] [address] 14 Dec, 2015 Other chronic pain G89.29 [facility] [address] [id number] [address] [place] [address] Dec, [facility] [address] [id number] [address] [place] [address] Nov, [facility] [address] [id number] [address] [place] [phone] Nov, [facility] [address] [id number] [address] [place] [address] Nov, Type 2 diabetes mellitus wit hout complication, without long-term current use of insulin E11.9 ; Other chronic pain G89.29 ; Sciatica, right side M54.31 ; Sciatica of left side M54.32 ; Essential hypertension I10 ; Anxiety F41.9 ; Gastroesophageal reflux disease without esophagitis K21.9 ; Irritable bowel syndrome, unspecified type K58.9 ; Chronic urinary tract infection N39.0 and Iron deficiency anemia, unspecified iron deficiency anemia type D50.9 [facility] [address] [id number] [address] [place] [address] Nov, [facility] [address] [id number] [address] [place] [address] Nov, [facility] [address] [id number] [address] [place] [address] Nov, [facility] [address] [id number] [address] [place] [phone] Nov, [facility] [address] [id number] [address] [place] [phone] Nov, [facility] [address] [id number] [address] [place] [address] Nov, [facility] [address] [id number] [address] [place] [address] Nov, [facility] [address] [id number] [address] [place] [address] Jul, [facility] [address] [id number] [address] [place] [address] Jul, [facility] [address] [id number] [address] [place] [phone] August, [facility] [address] [id number] [address] [place] [phone] Jun, [facility] [address] [id number] [address] [place] [id number] Oct, IMMUNIZATIONS No Known Immunizations SOCIAL HISTORY Never Assessed REASON FOR VISIT [facility] [place] VITAL SIGNS MEDICATIONS Medication Instructions Dosage Frequency Start Date End Date Duration S tatus Lyrica Oct, Active Lasix Oct, Active Valium Oct, Active Atenolol Oct, Active RESULTS No Results PROCEDURES No Known [...] Medical History personal history of urinary tract infect ions Medical History Psychosis, unspecified psychosis type Medical History Nicotine abuse Medical History Irritable bowel syndrome with diarrhea Medical History Chronic pain disorder Medical History Fibromyalgia Medical History Meniere disease, unspecified laterality Surgical History hysterectomy Surgical History Great toe on left foot has titanium in i t. Surgical History appendectomy Surgical History ear surgery x 3 for Menieres Surgical History bladder fixed Surgical History rectocele/cystocele Surgical History broken humerous on right arm x 2 Hospitalization History low potassium Hospitalization History bladder issues Hospitalization History hallucinations
--- OUTSIDE RECORDS SUMMARY | 2019-03-30 14:00 | XMS REPORT | Clinical Summary ---
Author Author [facility] Organization [facility] Address Unknown Phone Unavailable Care Team Providers Care Branding Machine Operator Name Role Phone Nicholas Harper MD PCP Nicholas Harper MD Unavailable Emile Garcia MD Unavailable [phone] Aldo Berg MD Unavailable Adam Tirado MD Unavailable Christina Peña RN Unavailable Unavailable Kamran Mcclain MD Unavailable Dann Moy MD Unavailable Lemuel Chavez MD Unavailable Sarah Talbert RN Unavailable Unavailable Source Comments Some departments are not documenting in the electronic medical record. If you d o not see the information that you expected, contact Release of Information in [facility] Information Management department at [phone] for further assistan ce in locating additional records.[facility] Allergies Comments Active Allergy Reactions Severity Noted Date Penicillins RASH Medium 01/31/2015 Penicillins ANAPHYLAXIS High 06/18/2014 Medications End Date Status Medication Sig Dispensed Refills Start Date Active atenolol (TENORMIN) 25 mg Take 25 mg by 0 tablet mouth twice daily. Active hydrochlorothiazide Take 12.5 mg 0 (HYDRODIURIL) 12.5 mg Tab by mouth tablet twice daily. Active furosemide (LASIX) 20 mg Take 20 mg by 0 tablet mouth daily. Active glyBURIDE (DIABETA) 1.25 Take 1.25 mg 0 mg tablet by mouth twice daily with meals. Active polysaccharide iron Take 150 mg 0 complex (POLY-IRON) 150 by mouth mg iron capsule twice daily. Active DULoxetine DR (CYMBALTA) Take 60 mg by 0 60 mg capsule mouth daily. Active pregabalin (LYRICA) 225 Take 225 mg 0 mg capsule by mouth twice daily. Active estradiol (ESTRACE) 0.01 Insert or 0 % (0.1 mg/g) vaginal Apply 1 g to cream vaginal area at bedtime as needed. Active Miscellaneous Medical Chux pads 1 100 Each 12 Supply pads box 5 Active oxybutynin XL (DITROPAN Take 1 Tab by 90 Tab 3 XL) 10 mg tablet mouth daily. 5 Do not cut/ crush/ chew Active CYCLOBENZAPRINE HCL Take by 0 (FLEXERIL PO) mouth. Active dicyclomine (BENTYL) 20 Take 20 mg by 0 mg tablet mouth every 6 hours. Active glimepiride (AMARYL) 4 mg Take 4 mg by 0 tablet mouth daily with breakfast. Active HYDROcodone/acetaminophen Take 1 Tab by 0 (NORCO; VICODIN) 5-325 mg mouth every 4 tablet hours as needed for Pain Active lansoprazole DR(+) Take 30 mg by 0 (PREVACID) 30 mg capsule mouth daily. Active metFORMIN-XR(+) Take 500 mg 0 (GLUCOPHAGE XR) 500 mg by mouth tablet daily with dinner. Active omeprazole DR(+) Take 40 mg by 0 (PRILOSEC) 40 mg capsule mouth daily. Active meloxicam (MOBIC) 7.5 mg Take 7.5 mg 0 tablet by mouth daily. Active hyoscyamine (LEVSIN/SL) TAKE ONE 30 Tab 3 0.125 mg tablet TABLET BY 6 MOUTH EVERY FOUR HOURS NEEDED FOR CRAMPS Active Problems Problem Noted Date Neurogenic bladder 08/29/2014 Overview: 08/29/14: VUDS showing normal capacity b ladder with atonic bladder L ast Assessment & Plan: - Recommend continuing CIC QID instead of TID - Will have her return to clinic in 6 m [facility] for evaluation Closed fracture of right humerus 02/11/2012 Osteoarthrosis, unspecified whether generalized or lo calized, unspecified 08/24/2007 site Immunizations Name Administration Dates Next Due Pneumococcal Vaccine 02/04/2012 (23-Amanda Adult) Tdap Vaccine 02/04/2012 Family History Medical History Relation Name Comments Hypertension Father Asthma Mother Cancer Mother Seizures Mother Stroke Mother Relation Name Status Comments Father Mother Social History Date Tobacco Use Types Packs/Day Years Used Former Smoker 0.5 Comments: STOPS AND STARTS Drinks/Week oz/Week Comments Alcohol Use 0 Standard drinks or equivalent 0.0 No Sex Assigned at Date Recorded Not on file Industry Job Start Date Occupation Not on file Not on file Not on file Travel End Travel History Travel Start No recent travel history available. Last Filed Vital Signs Reading Time Taken Comments Vital Sign 124/86 07/25/2015 3:20 PM CDT Blood Pressure 70 07/25/2015 3:20 PM CDT Pulse 36.7 C (98 F) 07/25/2015 3:05 PM CDT Temperature 18 07/25/2015 1:12 PM CDT Respiratory Rate 96% 07/25/2015 3:20 PM CDT Oxygen Saturation - - Inhaled Oxygen Concentration 90.7 kg (200 lb) 07/25/2015 1:12 PM CDT Weight 152.4 cm (5') 07/25/2015 1:12 PM CDT Height 39.06 07/25/2015 1:12 PM CDT Body Mass Index Plan of Treatment Health Maintenance Due Date Last Done Comments HEPATITIS C SCREENING 1950 PHYSICAL (COMPREHENSIVE) 12/07/1967 EXAM BREAST CANCER SCREENING 1989 COLORECTAL CANCER 12/07/1999 SCREENING SHINGLES RECOMBINANT 12/07/1999 VACCINE (1 of 2) OSTEOPOROSIS 2014 SCREENING/MONITORING PNEUMONIA (PCV13/PPSV23) 2014 02/04/2012 VACCINES (1 of 2 - PCV13) INFLUENZA VACCINE 11/03/2018 DTAP/TDAP VACCINES (2 - 02/03/2022 02/04/2012 Td) Results Not on filefrom Last 3 Months Insurance Type Payer Benefit Subscriber ID Effective Phone Address Plan / Dates Group [place] [employer] xxxxxxxxxxx 2010- [facility] Medicaid [place] [employer] xxxxxxxxxxx 2012-[facility] -[id number] CathleenSharifa Coyne Personal/F Self 1950 [address] (Home) [place] [id number] Advance Directives Patient Site Supervisor Explanation Type Date Recorded Advance 06/18/2014 11:47 AM Directive/DPOA Advance 01/17/2015 2:44 PM Directive/DPOA Date Inactivated Comments Code Status Date Activated 02/16/2012 6:45 PM Full Code 02/02/2012 5:42 PM Provider has discussed Code Status No, discussion no t w/Patient or Family? necessary based on Dx
--- OUTSIDE RECORDS SUMMARY | 2019-03-30 14:00 | XMS REPORT ---
Author Author Sharifa Cano Doctor Organization [facility] Address Unknown Phone Unavailable Care Team Providers Care Treater Helper Name Role Phone Migration, Doctor Unavailable Unavailable PROBLEMS Type Condition ICD9-CM Code JRU25-NQ Code Onset Dates Condition S tatus SNOMED Code Problem Chronic pain disorder G89.4 Active 321598169 Problem Nicotine abuse Z72.0 Active 17326 008 Problem Fibromyalgia M79.7 Active 1240302 05 Problem Psychosis, unspecified psychosis type F29 Active 09630725 Problem Meniere disease, unspecified laterality H81.09 Active 41673691 Problem Irritable bowel syndrome with diarrhea K58.0 Active 507034995 Problem Polyneuropathy associated with underlying disease G63 Active 315473095 Problem Neurogenic bladder N31.9 Active 3 29712957 Problem Insomnia, unspecified type G47.00 Act craig 608936271 Problem Type 2 diabetes mellitus wit h diabetic neuropathy, without long-term current use of insulin E11.40 Active 93851 006 Problem Lumbar disc disease M51.9 Active 68177155 Problem Intractable migraine without aura and with status migr ainosus G43.011 Active 409706442 Problem Type 2 diabetes mellitus wit hout complication, without long-term current use of insulin E11.9 Active 262252272 Problem Other chronic pain G89.29 Active 8 8398835 Problem Gastroesophageal reflux disease without esophagitis K21.9 Active 033153170 Problem Generalized anxiety disorder F41.1 A ctive 30581075 Problem Anxiety F41.9 Active 23622647 ALLERGIES No Information ENCOUNTERS Encounter Location Date Diagnosis [facility] [address] [facility] [id number] [address] [place] [address] August, Type 2 diabetes mellitus wit hout complication, without long-term current use of insulin E11.9 [facility] [address] [place] [id number] August, Intractable migraine without aura and with status migrainosus G43.011 ; Type 2 diabetes mellitus without complication, without long-term current use of insulin E11.9 ; Lumbar disc disease M51.9 and Polyneuropathy associated with underlying disease G63 [facility] [address] [id number] [address] [place] [address] August, Lumbar disc disease M51.9 [facility] [address] [id number] [address] [place] [address] Jul, [facility] [address] [id number] [address] [place] [address] Jul, [facility] [address] [id number] [address] [place] [address] Jul, Type 2 diabetes mellitus wit h diabetic neuropathy, without long- term current use of insulin E11.40 [facility] [address] [id number] [address] [place] [address] Jul, [facility] [address] [id number] [address] [place] [address] Jul, Lumbar disc disease M51.[address] [facility] [address] [id number] Jun, Type 2 diabetes mellitus with diabetic neuropathy, without long-term current use of insulin E11.40 and Fibromyalgia M79.7 [facility] [address] [id number] [address] [place] [address] Jun, Lumbar disc disease M51.9 [facility] [address] [id number] [address] [place] [address] May, [facility] [address] [id number] [address] [place] [address] May, [facility] [address] [id number] [address] [place] [address] May, [facility] [address] [id number] [address] [place] [address] May, Lumbar disc disease M51.9 [facility] [address] [place] [id number] Apr, Type 2 diabetes mellitus without complication, without long-term current use of insulin E11.9 ; Gastroesophageal reflux disease without esophagitis K21.9 ; Irritable bowel syndrome, unspecified type K58.9 and Bilateral impacted cerumen H61.23 [facility] [address] [facility] [id number] [address] [place] [address] Apr, [facility] [address] [facility] [id number] [address] [place] [address] Apr, Lumbar disc disease M51.9 [facility] [address] [facility] [id number] [address] [place] [address] Apr, [facility] [address] [facility] [id number] [address] [place] [address] Mar, [facility] [address] [facility] [id number] [address] [place] [address] Mar, [facility] disease [facility]51.9 [facility] [address] [id number] Feb, Polyneuropathy associated with underlying disease G63 and Type 2 diabetes mellitus without complication, without long-term current use of insulin E11.9 [facility] [address] [facility] [id number] [address] [place] [address] Feb, [facility] [address] [facility] [id number] [address] [place] [address] Feb, Lumbar disc disease M51.9 [facility] [address] [facility] [id number] [address] [place] [address] Feb, [facility] [address] [facility] [id number] [address] [place] [address] Feb, Gastroesophageal reflux dise ase without esophagitis K21.9 [facility] [address] [id number] [address] [place] [id number] Jan, Dental examination Z01.20 [facility] [address] [facility] [id number] [address] [place] [address] Jan, Tooth abscess K04.7 [facility] [address] [id number] [address] [place] [address] 15 Jan, 2018 Lumbar disc disease M51.9 [facility] [address] [id number] [address] [place] [address] 02 Jan, 2018 [facility] [address] [id number] [address] [place] [address] 14 Dec, 2017 [facility]51.9 [facility] [address] [id number] 13 Dec, 2017 Other acute back pain M54.9 and Lumbar disc disease M51.9 [facility] [address] [id number] [address] [place] [address] Nov, Lumbar disc disease M51.9 [facility] [address] [id number] [address] [place] [address] Nov, [facility] [address] [id number] [address] [place] [address] Oct, Lumbar disc disease M51.9 [facility] [address] [id number] [address] [place] [address] 16 Oct, 2017 [facility] [address] [id number] Oct, Polyneuropathy associated with underlying disease G63 ; Type 2 diabetes mellitus without complication, without long-term current use of insulin E11.9 and Family history of CVA Z82.3 [facility] [address] [id number] [address] [place] [address] Sep, Lumbar disc disease M51.9 [facility] [address] [id number] [address] [place] [address] 14 Sep, 2017 [facility] [address] [id number] [address] [place] [address] August, Lumbar disc disease M51.9 [facility] [address] [id number] [address] [place] [address] August, [facility] [address] [id number] August, Meniere''s disease, unspecified laterality H81.09 and Type 2 diabetes mellitus without complication, without long-term current use of insulin E11.9 [place] [address] [facility] [id number] [address] [place] [address] August, BMI 40.0-44.9, adult Z68.41 and Anxiety F41.9 [place] [address] [facility] [id number] [address] [place] [address] Jul, Lumbar disc disease M51.9 [place] [address] [place] [id number] [address] [place] [address] Jul, Generalized anxiety disorder F41.1 [place] [address] [place] [id number] [address] [place] [address] Jul, [place] [address] [place] [id number] [address] [place] [address] Jul, Lumbar disc disease M51.[address] [id number] Jun, Urinary tract infection without hematuria, site unspecified N39.0 ; Bilateral impacted cerumen H61.23 ; Loose stools R19.5 and Type 2 diabetes mellitus without complication, without long-term current use of insulin E11.9 [place] [address] [facility] [id number] [address] [place] [address] Jun, [place] [address] [facility] [id number] [address] [place] [address] Jun, Fibromyalgia M79.7 [place] [address] [place] [id number] [address] [place] [address] Jun, Breast mass, right N63.10 [place] [address] [place] [id number] [address] [place] [address] Jun, Breast mass, right N63.10 [facility] [address] [place] [id number] Jun, Breast mass, right N63.10 ; Type 2 diabetes mellitus without complication, without long-term current use of insulin E11.9 and Fibromyalgia M79.7 [facility] [address] [facility] [id number] [address] [place] [address] Jun, Gastroesophageal reflux dise ase without esophagitis K21.9 [facility] [address] [id number] [place] [id number] Jun, Lumbar disc disease M51.9 [facility] [address] [facility] [id number] [address] [place] [address] May, [facility] [address] [id number] [place] [id number] May, [facility] [address] [id number] [place] [id number] May, [facility] [address] [id number] [place] [id number] May, Lumbar disc disease M51.9 [facility] [address] [id number] [place] [id number] Apr, [facility] [address] [place] [id number] Apr, Viral upper respiratory tract infection J06.9 and Impacted cerumen, bilateral H61.23 [facility] [address] [id number] [place] [id number] Apr, [facility] [address] [facility] [id number] [address] [place] [address] Apr, [facility] [address] [id number] [place] [id number] Apr, Lumbar disc disease M51.9 [facility] [address] [place] [id number] Mar, Lumbar disc disease M51.9 and Fibromyalgia M79.7 [facility] [address] [id number] [address] [place] [address] Mar, [facility] [address] [id number] [place] [id number] Feb, [facility] [address] [id number] [address] [place] [address] Jan, Type 2 diabetes mellitus wit hout complication, without long-term current use of insulin E11.9 [facility] [address] [id number] Jan, Type 2 diabetes mellitus without complication, without long-term current use of insulin E11.9 ; Fibromyalgia M79.7 and Lumbar disc disease M51.9 [facility] [address] [id number] [place] [id number] Jan, [facility] [address] [id number] [place] [id number] Jan, [facility] [address] [facility] [id number] [address] [place] [address] Dec, [facility] [address] [id number] [place] [id number] Dec, [facility] [address] [id number] [place] [id number] Dec, [facility] [address] [id number] [place] [id number] Nov, Pre-procedure lab exam Z01.812 [facility] [address] [id number] [address] [address] Nov, Ventral hernia without obstr uction or gangrene K43.9 [facility] [address] [id number] [place] [id number] Nov, [facility] [address] [id number] [place] [id number] Nov, [facility] [address] [id number] Nov, Ventral hernia without obstruction or gangrene K43.9 [facility] [address] [id number] Nov, Fibromyalgia M79.7 and Polyneuropathy associated with underlying disease G63 [facility] [address] [id number] [address] [place] [address], [place] [address] Oct, [facility] [address] [id number] [place] [id number] Oct, [facility] [address] [id number] [place] [id number] Oct, [facility] [address] [id number] [place] [id number] Oct, [facility] [address] [id number] [place] [id number] Sep, [facility] [address] [id number] [address] [place] [address], [place] [address] Sep, [facility] [address] [id number] [address] [place] [address], [place] [address] Sep, [facility] [address] [id number] [address] [place] [address], [place] [address] August, [facility] [address] [id number] August, Right medial knee pain M25.561 [facility] [address] [id number] [address] [place] [address] August, [facility] [address] [id number] [address] [place] [address] August, [facility] [address] [id number] [address] [place] [address] August, [facility] [address] [id number] [place] [id number] August, [facility] [address] [id number] [address] [place] [address] August, [facility] [address] [id number] [place] [id number] August, [facility] [address] [id number] [place] [id number] Jul, [facility] [address] [id number] [address] [place] [address], [place] [address] Jul, [facility] [address] [id number] [place] [id number] Jul, [facility] [address] [id number] [address] [place] [address], [place] [id number] Jun, [facility] [address] [id number] [address] [place] [address] Jun, [facility] [address] [id number] [address] [place] [address], [place] [address] May, [facility] [address] [id number] [address] [place] [address] May, [facility] [address] [id number] [address] [place] [address] May, [facility] [address] [id number] [address] [place] [address] May, [facility] [address] [id number] [address] [place] [address] Apr, [facility] [address] [id number] Apr, Upper respiratory infection with cough and congestion J06.9 [facility] [address] [id number] [place] [id number] Apr, [facility] [address] [id number] [address] [place] [address] Apr, [facility] [address] [id number] [address] [place] [address] Mar, [facility] [address] [id number] [address] [place] [address] Mar, [facility] [address] [id number] [address] [place] [address] Mar, Other chronic pain G89.29 [facility] [address] [id number] [address] [place] [address] Mar, [facility] [address] [id number] [address] [place] [address] 05 Mar, 2016 [facility] [address] [id number] [address] [place] [address] Feb, [facility] [address] [id number] [address] [place] [address] Feb, [facility] [address] [id number] Feb, Insomnia, unspecified type G47.00 and Swelling of face R22.0 [facility] [address] [id number] [address] [place] [address] 16 Feb, 2016 [facility] [address] [id number] [address] [place] [address] 14 Feb, 2016 [facility] [address] [facility] [id number] [address] [place] [address] Feb, [facility] [address] [facility] [id number] [address] [place] [address] Feb, [facility] [address] [id number] [address] [place] [address] 24 Jan, 2016 [facility] [address] [id number] [address] [place] [address] 17 Jan, 2016 [facility] [address] [facility] [id number] [address] [place] [address] 14 Jan, 2016 Neurogenic bladder N31.9 [facility] [address] [facility] [id number] [address] [place] [address] Jan, [facility] [address] [id number] [address] [place] [address] Jan, [facility] [address] [id number] [address] [place] [address] Jan, [facility] [address] [facility] [id number] [address] [place] [address] Jan, [facility] [address] [facility] [id number] [address] [place] [address] Jan, Screening for breast cancer Z12.39 [facility] [address] [id number] [address] [place] [address] Jan, [facility] [address] [facility] [id number] [address] [place] [address] 27 Dec, 2015 Type 2 diabetes mellitus wit hout complication, without long-term current use of insulin E11.9 ; Lumbar disc disease M51.9 ; Polyneuropathy associated with underlying disease G63 and Neurogenic bladder N31.9 [facility] [address] [id number] [address] [place] [address] 16 Dec, 2015 [facility] [address] [id number] [address] [place] [address] 14 Dec, 2015 Other chronic pain G89.29 [facility] [address] [facility] [id number] [address] [place] [address] Dec, [facility] [address] [id number] [address] [place] [address] Nov, [facility] [address] [facility] [id number] [address] [place] [address] Nov, [facility] [address] [facility] [id number] [address] [place] [address] Nov, Type 2 diabetes mellitus wit hout [...] anemia, unspecified iron deficiency anemia type D50.9 [facility] [address] [id number] [address] [place] [address] Nov, [facility] [address] [id number] [address] [place] [address] Nov, [facility] [address] [id number] [address] [place] [address] Nov, [facility] [address] [id number] [address] [place] [address] Nov, [facility] [address] [id number] [address] [place] [address] Nov, [facility] [address] [id number] [address] [place] [address] Nov, [facility] [address] [id number] [address] [place] [address] Nov, [facility] [address] [id number] [address] [place] [address] Jul, [facility] [address] [id number] [address] [place] [address] Jul, [facility] [address] [id number] [address] [place] [address] August, [facility] [address] [id number] [address] [place] [address] Jun, [facility] [address] [id number] [address] [place] [address] Oct, IMMUNIZATIONS No Known Immunizations SOCIAL HISTORY Never Assessed REASON FOR VISIT EMR-[facility] PLAN OF CARE VITAL SIGNS MEDICATIONS Unknown [...]
--- OUTSIDE RECORDS SUMMARY | 2019-03-30 14:00 | XMS REPORT ---
Author Author Sharifa MAHAJAN Organization [facility] [place] Address [address] [place] [address] Care Team Providers Care Lead Burner Apprentice Name Role Phone LAURIE MAHAJAN Unavailable PROBLEMS Type Condition ICD9-CM Code [id number] Code Onset Dates Condition S tatus SNOMED Code Problem Lumbar disc disease M51.9 Active 69413603 Problem Neurogenic bladder N31.9 Active 3 32520855 Problem Polyneuropathy associated with underlying disease G63 Active 306971322 Problem Anxiety F41.9 Active 22271071 Problem Generalized anxiety disorder F41.1 A ctive 36071108 Problem Insomnia, unspecified type G47.00 Act craig 542294980 Problem Type 2 diabetes mellitus wit hout complication, without long-term current use of insulin E11.9 Active 970088712 Problem Gastroesophageal reflux disease without esophagitis K21.9 Active 516638541 Problem Other chronic pain G89.29 Active 8 0287488 Problem Psychosis, unspecified psychosis type F29 Active 08001321 Problem Fibromyalgia M79.7 Active 5731998 05 Problem Nicotine abuse Z72.0 Active 40100 008 Problem Irritable bowel syndrome with diarrhea K58.0 Active 708016857 Problem Chronic pain disorder G89.4 Active 766250981 Problem Meniere disease, unspecified laterality H81.09 Active 43048639 ALLERGIES No Information ENCOUNTERS Encounter Location Date Diagnosis [facility] [place] [address] [facility] [id number] [address] [place] [phone] Mar, [facility] [place] [address] [facility] [id number] [address] [place] [phone] 07 Mar, 2018 [facility] M51.9 [facility] [address] [place] [id number] Feb, Polyneuropathy associated with underlying disease G63 and Type 2 diabetes mellitus without complication, without long-term current use of insulin E11.9 [facility] [place] [address] [id number] [address] [place] [phone] 14 Feb, 2018 [facility] [place] [address] [id number] [address] [place] [phone] Feb, Lumbar disc disease M51.9 [facility] [place] [address] [id number] [address] [place] [phone] Feb, [facility] [place] [address] [id number] [address] [place] [phone] Feb, Gastroesophageal reflux dise ase without esophagitis K21.9 [facility] [address] [id number] [address] [place] [id number] Jan, Dental examination Z01.20 [facility] [place] [address] [id number] [address] [place] [phone] Jan, Tooth abscess K04.7 [facility] [place] [address] [id number] [address] [place] [phone] Jan, Lumbar disc disease M51.9 [facility] [place] [address] [id number] [address] [place] [phone] Jan, [facility] [place] [address] [id number] [address] [place] [phone] 14 Dec, 2017 Lumbar disc disease M51.9 [facility] [address] [place] [id number] Dec, Other acute back pain M54.9 and Lumbar disc disease M51.9 [facility] [place] [address] [id number] [address] [place] [phone] Nov, Lumbar disc disease M51.9 [facility] [place] [address] [id number] [address] [place] [phone] Nov, [facility] [place] [address] [id number] [address] [place] [phone] Oct, Lumbar disc disease M51.9 [facility] [place] [address] [id number] [address] [place] [phone] Oct, [facility] [address] [place] [id number] Oct, Polyneuropathy associated with underlying disease G63 ; Type 2 diabetes mellitus without complication, without long-term current use of insulin E11.9 and Family history of CVA Z82.3 [facility] [place] [address] [id number] [address] [place] [phone] Sep, Lumbar disc disease M51.9 [facility] [place] [address] [id number] [address] [place] [phone] Sep, [facility] [place] [address] [facility] [id number] [address] [place] [phone] August, Lumbar disc disease M51.9 [facility] [place] [address] [facility] [id number] [address] [place] [phone] August, [facility] [address] [place] [id number] August, Meniere''s disease, unspecified laterality H81.09 and Type 2 diabetes mellitus without complication, without long-term current use of insulin E11.9 [facility] [place] [address] [facility] [id number] [address] [place] [phone] August, BMI 40.0-44.9, adult Z68.41 and Anxiety F41.9 [facility] [place] [address] [facility] [id number] [address] [place] [phone] Jul, Lumbar disc disease M51.9 [facility] [place] [address] [facility] [id number] [address] [place] [phone] Jul, Generalized anxiety disorder F41.1 [facility] [place] [address] [facility] [id number] [address] [place] [phone] Jul, [facility] [place] [address] [facility] [id number] [address] [place] [phone] Jul, Lumbar disc disease M51.9 [facility] [address] [place] [id number] Jun, Urinary tract infection without hematuria, site unspecified N39.0 ; Bilateral impacted cerumen H61.23 ; Loose stools R19.5 and Type 2 diabetes mellitus without complication, without long-term current use of insulin E11.9 [facility] [place] [address] [facility] [id number] [address] [place] [phone] Jun, [facility] [place] [address] [facility] [id number] [address] [place] [phone] Jun, Fibromyalgia M79.7 [facility] [place] [address] [facility] [id number] [address] [place] [phone] Jun, Breast mass, right N63.10 [facility] [place] [address] [facility] [id number] [address] [place] [phone] Jun, Breast mass, right N63.10 [facility] [address] [place] [id number] Jun, Breast mass, right N63.10 ; Type 2 diabetes mellitus without complication, without long-term current use of insulin E11.9 and Fibromyalgia M79.7 [facility] [place] [address] [facility] [id number] [address] [place] [phone] Jun, Gastroesophageal reflux dise ase without esophagitis K21.9 [facility] [address] [id number] [place] [id number] Jun, Lumbar disc disease M51.9 [facility] [place] [address] [facility] [id number] [address] [place] [phone] May, [facility] [address] [id number] [place] [id number] May, [facility] [address] [id number] [place] [id number] May, [facility] [address] [id number] [place] [id number] May, Lumbar disc disease M51.9 [facility] [address] [id number] [place] [id number] Apr, [facility] [address] [place] [id number] Apr, Viral upper respiratory tract infection J06.9 and Impacted cerumen, bilateral H61.23 [facility] [address] [id number] [place] [id number] Apr, [facility] [place] [address] [facility] [id number] [address] [place] [phone] Apr, [facility] [address] [id number] [place] [id number] Apr, Lumbar disc disease M51.9 [facility] [address] [place] [id number] Mar, Lumbar disc disease M51.9 and Fibromyalgia M79.7 [facility] [place] [address] [facility] [id number] [address] [place] [phone] Mar, [facility] [address] [id number] [place] [id number] Feb, [facility] [place] [address] [facility] [id number] [address] [place] [phone] Jan, Type 2 diabetes mellitus wit hout complication, without long-term current use of insulin E11.9 [facility] [address] [place] [id number] Jan, Type 2 diabetes mellitus without complication, without long-term current use of insulin E11.9 ; Fibromyalgia M79.7 and Lumbar disc disease M51.9 [facility] [address] [id number] [place] [id number] Jan, [facility] [address] [id number] [place] [id number] Jan, [facility] [place] [address] [facility] [id number] [address] [place] [phone] Dec, [facility] [address] [id number] [place] [id number] Dec, [facility] [address] [id number] [place] [id number] Dec, [facility] [address] [id number] [place] [id number] Nov, Pre-procedure lab exam Z01.812 [facility] [place] [address] [id number] [address] [place] [address], [place] [address] Nov, Ventral hernia without obstr uction or gangrene K43.9 [facility] [address] [id number] [place] [id number] Nov, [facility] [address] [id number] [place] [id number] Nov, [facility] [address] [place] [id number] Nov, Ventral hernia without obstruction or gangrene K43.9 [facility] [address] [place] [id number] Nov, Fibromyalgia M79.7 and Polyneuropathy associated with underlying disease G63 [facility] [place] [address] [id number] [address] [place] [address], [place] [address] Oct, [facility] [address] [id number] [place] [id number] Oct, [facility] [address] [id number] [place] [id number] Oct, [facility] [address] [id number] [place] [id number] Oct, [facility] [address] [id number] [place] [id number] Sep, [facility] [place] [address] [id number] [address] [place] [phone] Sep, [facility] [place] [address] [id number] [address] [place] [phone] Sep, [facility] [address] [id number] [address] [place] [address], [place] [address] August, [facility] [address] [place] [id number] August, Right medial knee pain M25.561 [facility] [address] [id number] [facility] [place] [address] August, [facility] [address] [id number] [address] [place] [address], [place] [address] August, [facility] [address] [id number] [address] [address] August, [facility] [address] [id number] [place] [id number] August, [facility] [address] [id number] [address] [place] [address], [place] [address] August, [facility] [address] [id number] [place] [id number] August, [facility] [address] [id number] [place] [id number] Jul, [facility] [address] [id number] [address] [place] [address], [place] [address] Jul, [facility] [address] [id number] [place] [id number] Jul, [facility] [address] [id number] [address] [place] [address], [place] [address] Jun, [facility] [address] [id number] [address] [place] [address], [place] [address] Jun, [facility] [address] [id number] [address] [place] [address], [place] [address] May, [facility] [address] [id number] [address] [place] [address], [place] [address] May, [facility] [address] [id number] [address] [place] [phone] May, [facility] [place] [address] [id number] [address] [place] [phone] May, [facility] [place] [address] [id number] [address] [place] [phone] Apr, [facility] [address] [place], [place] [id number] Apr, Upper respiratory infection with cough and congestion J06.9 [facility] [id number] [place] [id number] Apr, [facility] [place] [address] [id number] [address] [place] [phone] Apr, [facility] [place] [address] [id number] [address] [place] [phone] Mar, [facility] [place] [address] [id number] [address] [place] [phone] Mar, [facility] [place] [address] [id number] [address] [place] [phone] Mar, Other chronic pain G89.29 [facility] [place] [address] [id number] [address] [place] [phone] Mar, [facility] [place] [address] [id number] [address] [place] [phone] Mar, [facility] [place] [address] [id number] [address] [place] [phone] Feb, [facility] [place] [address] [id number] [address] [place] [phone] Feb, [facility] [address] [place] [id number] Feb, Insomnia, unspecified type G47.00 and Swelling of face R22.0 [facility] [place] [address] [id number] [address] [place] [phone] Feb, [facility] [place] [address] [id number] [address] [place] [phone] 14 Feb, 2016 [facility] [place] [address] [id number] [address] [place] [id number] 07 Feb, 2016 [facility] [place] [address] [id number] [address] [place] [phone] Feb, [facility] [place] [address] [id number] [address] [place] [phone] 24 Jan, 2016 [facility] [place] [address] [id number] [address] [place] [phone] Jan, [facility] [place] [address] [id number] [address] [place] [phone] 14 Jan, 2016 Neurogenic bladder N31.9 [facility] [place] [address] [id number] [address] [place] [phone] Jan, [facility] [place] [address] [id number] [address] [place] [phone] Jan, [facility] [place] [address] [id number] [address] [place] [phone] Jan, [facility] [place] [address] [id number] [address] [place] [id number] Jan, [facility] [place] [address] [id number] [address] [place] [phone] Jan, Screening for breast cancer Z12.39 [facility] [place] [address] [id number] [address] [place] [id number] Jan, [facility] [place] [address] [id number] [address] [place] [phone] 27 Dec, 2016 Type 2 diabetes mellitus wit hout complication, without long-term current use of insulin E11.9 ; Lumbar disc disease M51.9 ; Polyneuropathy associated with underlying disease G63 and Neurogenic bladder N31.9 [facility] [place] [address] [id number] [address] [place] [phone] 16 Dec, 2015 [facility] [place] [address] [id number] [address] [place] [phone] 14 Dec, 2015 Other chronic pain G89.29 [facility] [place] [address] [id number] [address] [place] [phone] 12 Dec, 2015 [facility] [place] [address] [facility] [id number] [address] [place] [phone] 31 Nov, 2015 [facility] [place] [address] [facility] [id number] [address] [place] [phone] 30 Nov, 2015 [facility] [place] [address] [facility] [id number] [address] [place] [phone] Nov, Type 2 diabetes mellitus wit hout [...] anemia, unspecified iron deficiency anemia type D50.9 [facility] [place] [address] [facility] [id number] [address] [place] [phone] Nov, [facility] [place] [address] [facility] [id number] [address] [place] [phone] Nov, [facility] [place] [address] [facility] [id number] [address] [place] [phone] Nov, [facility] [place] [address] [facility] [id number] [address] [place] [phone] Nov, [facility] [place] [address] [facility] [id number] [address] [place] [id number] Nov, [facility] [place] [address] [facility] [id number] [address] [place] [phone] Nov, [facility] [place] [address] [facility] [id number] [address] [place] [phone] Nov, [facility] [place] [address] [facility] [id number] [address] [place] [phone] 14 Jul, 2014 [facility] [place] [address] [facility] [id number] [address] [place] [phone] Jul, [facility] [place] [address] [facility] [id number] [address] [place] [phone] August, [facility] [place] [address] [facility] [id number] [address] [place] [id number] Jun, [facility] [place] [address] [facility] [id number] [address] [place] [phone] Oct, IMMUNIZATIONS No Known Immunizations SOCIAL HISTORY Never Assessed REASON FOR VISIT medication changes PLAN OF CARE VITAL SIGNS MEDICATIONS Unknown [...]
--- OUTSIDE RECORDS SUMMARY | 2019-03-30 14:01 | XMS REPORT ---
Author Author Sharifa MAHAJAN Organization [facility] Address [address] [place] [address] Care Team Providers Care Play Reader Name Role Phone LAURIE MAHAJAN Unavailable PROBLEMS Type Condition ICD9-CM Code GNC38-VR Code Onset Dates Condition S tatus SNOMED Code Problem Lumbar disc disease M51.9 Active 74452901 Problem Neurogenic bladder N31.9 Active 3 85319413 Problem Polyneuropathy associated with underlying disease G63 Active 423065441 Problem Anxiety F41.9 Active 80787814 Problem Generalized anxiety disorder F41.1 A ctive 77275070 Problem Insomnia, unspecified type G47.00 Act craig 929408597 Problem Type 2 diabetes mellitus wit hout complication, without long-term current use of insulin E11.9 Active 176880850 Problem Gastroesophageal reflux disease without esophagitis K21.9 Active 424084392 Problem Other chronic pain G89.29 Active 8 1268461 Problem Psychosis, unspecified psychosis type F29 Active 66866986 Problem Fibromyalgia M79.7 Active 9863349 05 Problem Nicotine abuse Z72.0 Active 26197 008 Problem Irritable bowel syndrome with diarrhea K58.0 Active 282152411 Problem Chronic pain disorder G89.4 Active 740104480 Problem Meniere disease, unspecified laterality H81.09 Active 30811399 ALLERGIES No Information ENCOUNTERS Encounter Location Date Diagnosis [facility] [address] [id number] [address] [place] [address] Feb, [facility] [address] [id number] [address] [place] [address] Feb, Gastroesophageal reflux dise ase without esophagitis K21.9 [facility] [address] [id number] [address] [place] [id number] Jan, Dental examination Z01.20 [facility] [address] [id number] [address] [place] [address] 17 Jan, 2018 Tooth abscess K04.7 [facility] [address] [id number] [address] [place] [address] 15 Jan, 2018 Lumbar disc disease M51.9 [facility] [address] [id number] [address] [place] [address] 02 Jan, 2018 [facility] [address] [id number] [address] [place] [address] 14 Dec, 2017 Lumbar disc disease M51.9 [facility] [address] [place] [id number] 13 Dec, 2017 Other acute back pain M54.9 and Lumbar disc disease M51.9 [facility] [address] [id number] [address] [place] [address] Nov, Lumbar disc disease M51.9 [facility] [address] [id number] [address] [place] [address] Nov, [facility] [address] [id number] [address] [place] [address] Oct, Lumbar disc disease M51.9 [facility] [address] [id number] [address] [place] [address] Oct, [facility] [address] [id number] Oct, Polyneuropathy associated with underlying disease G63 ; Type 2 diabetes mellitus without complication, without long-term current use of insulin E11.9 and Family history of CVA Z82.3 [facility] [address] [id number] [address] [place] [address] Sep, Lumbar disc disease M51.9 [facility] [address] [id number] [address] [place] [address] Sep, [facility] [address] [id number] [address] [place] [address] August, Lumbar disc disease M51.9 [place] [address] [id number] [address] [place] [address] August, [facility] [address] [id number] August, Meniere''s disease, unspecified laterality H81.09 and Type 2 diabetes mellitus without complication, without long-term current use of insulin E11.9 [place] [address] [id number] [address] [place] [address] August, BMI 40.0-44.9, adult Z68.41 and Anxiety F41.9 [place] [id number] [place] [address] Jul, Lumbar disc disease M51.9 [place] [id number] [place] [address] Jul, Generalized anxiety disorder F41.1 [place] [address] [address] Jul, [place] [address] [id number] [address] [place] [address] Jul, Lumbar disc disease M51.9 [facility] [address] [place] [id number] Jun, Urinary tract infection without hematuria, site unspecified N39.0 ; Bilateral impacted cerumen H61.23 ; Loose stools R19.5 and Type 2 diabetes mellitus without complication, without long-term current use of insulin E11.9 [place] [address] [place] [address] Jun, [place] [address] [id number] [address] [place] [address] Jun, Fibromyalgia M79.7 [place] [address] [id number] [address] [place] [address] Jun, Breast mass, right N63.10 [place] [address] [id number] [address] [place] [address] Jun, Breast mass, right N63.10 [facility] [address] [place] [id number] Jun, Breast mass, right N63.10 ; Type 2 diabetes mellitus without complication, without long-term current use of insulin E11.9 and Fibromyalgia M79.7 [facility] [address] [facility] [id number] [address] [place] [address] Jun, Gastroesophageal reflux dise ase without esophagitis K21.9 [facility] [address] [id number] [place] [id number] Jun, Lumbar disc disease M51.9 [facility] [address] [facility] [facility] [id number] [address] [place] [address], [place] [address] May, [facility] [address] [id number] [place] [id number] May, [facility] [address] [id number] [place] [id number] May, [facility] [address] [id number] [place] [address] May, Lumbar disc disease M51.9 [facility] [address] [id number] [place] [id number] Apr, [facility] [address] [place] [id number] Apr, Viral upper respiratory tract infection J06.9 and Impacted cerumen, bilateral H61.23 [facility] [address] [id number] [place] [id number] Apr, [facility] [address] [facility] [id number] [address] [place] [address] Apr, [facility] [address] [id number] [place] [address] Apr, Lumbar disc disease M51.9 [facility] [address] [place] [id number] Mar, Lumbar disc disease M51.9 and Fibromyalgia M79.7 [facility] [address] [id number] [facility] [place] [address] Mar, [facility] [address] [id number] [place] [id number] Feb, [facility] [address] [id number] [facility] [place] [address] Jan, Type 2 diabetes mellitus wit hout complication, without long-term current use of insulin E11.9 [facility] [address] [id number] Jan, Type 2 diabetes mellitus without complication, without long-term current use of insulin E11.9 ; Fibromyalgia M79.7 and Lumbar disc disease M51.9 [facility] [address] [id number] [place] [id number] Jan, [facility] [address] [id number] [place] [address] Jan, [facility] [address] [id number] [facility] [place] [address] Dec, [facility] [address] [id number] [place] [address] Dec, [facility] [address] [id number] [place] [id number] Dec, [facility] [address] [id number] [place] [address] Nov, Pre-procedure lab exam Z01.812 [facility] [address] [id number] [facility] [place] [address] Nov, Ventral hernia without obstr uction or gangrene K43.9 [facility] [address] [id number] [place] [address] Nov, [facility] [address] [id number] [place] [address] Nov, [facility] [address] [facility] [place] [id number] Nov, Ventral hernia without obstruction or gangrene K43.9 [facility] [address] [facility] [place] [id number] Nov, Fibromyalgia M79.7 and Polyneuropathy associated with underlying disease G63 [facility] [address] [id number] [address] [place] [address], [place] [address] Oct, [facility] [address] [id number] [place] [id number] Oct, [facility] [address] [id number] [place] [id number] Oct, [facility] [address] [id number] [place] [id number] Oct, [facility] [address] [id number] [place] [address] Sep, [facility] [address] [id number] [address] [place] [address], [place] [address] Sep, [facility] [address] [id number] [address] [place] [address], [place] [address] Sep, [facility] [address] [id number] [address] [place] [address], [place] [address] August, [facility] [address] [facility] [place] [id number] August, Right medial knee pain M25.561 [facility] [address] [id number] [address] [place] [address], [place] [address] August, [facility] [address] [id number] [address] [place] [address], [place] [address] August, [facility] [address] [id number] [address] [place] [address], [place] [address] August, [facility] [address] [id number] [place] [id number] August, [facility] [address] [id number] [address] [place] [address], [place] [address] August, [facility] [address] [id number] [place] [id number] August, [facility] [address] [id number] [place] [id number] Jul, [facility] [address] [id number] [address] [place] [address], [place] [address] Jul, [facility] [address] [id number] [place] [id number] Jul, [facility] [address] [id number] [address] [place] [address], [place] [address] Jun, [facility] [address] [id number] [address] [place] [address], [place] [address] Jun, [facility] [address] [id number] [address] [place] [address], [place] [address] May, [facility] [address] [id number] [address] [place] [address], [place] [address] May, [facility] [address] [id number] [address] [place] [address], [place] [address] May, [facility] [address] [id number] [address] [place] [address], [place] [address] May, [facility] [address] [id number] [address] [place] [address] Apr, [facility] [address] [id number] Apr, Upper respiratory infection with cough and congestion J06.9 [facility] [address] [id number] [place] [id number] Apr, [facility] [address] [id number] [address] [place] [address], [place] [address] Apr, [facility] [address] [id number] [address] [place] [address] Mar, [facility] [address] [id number] [address] [place] [address] Mar, [facility] [address] [id number] [address] [place] [address] Mar, Other chronic pain G89.29 [facility] [address] [id number] [address] [place] [address] Mar, [facility] [address] [id number] [address] [place] [address] 05 Mar, 2016 [facility] [address] [id number] [address] [place] [address] Feb, [facility] [address] [id number] [address] [place] [address] Feb, [facility] [address] [place] [id number] Feb, Insomnia, unspecified type G47.00 and Swelling of face R22.0 [facility] [address] [id number] [address] [place] [address] Feb, [facility] [address] [id number] [address] [place] [address] Feb, [facility] [address] [id number] [address] [place] [address] Feb, [facility] [address] [id number] [address] [place] [address] Feb, [facility] [address] [id number] [address] [place] [address] 24 Jan, 2016 [facility] [address] [id number] [address] [place] [address] 17 Jan, 2016 [facility] [address] [id number] [address] [place] [address] 14 Jan, 2016 Neurogenic bladder N31.9 [facility] [address] [id number] [address] [place] [address] Jan, [facility] [address] [id number] [address] [place] [address] Jan, [facility] [address] [id number] [address] [place] [address] Jan, [facility] [address] [id number] [address] [place] [address] Jan, [facility] [address] [id number] [address] [place] [address] Jan, Screening for breast cancer Z12.39 [facility] [address] [id number] [address] [place] [address] Jan, [facility] [address] [id number] [address] [place] [address] Dec, Type 2 diabetes mellitus wit hout complication, without long-term current use of insulin E11.9 ; Lumbar disc disease M51.9 ; Polyneuropathy associated with underlying disease G63 and Neurogenic bladder N31.9 [facility] [address] [id number] [address] [place] [address] 16 Dec, 2015 [facility] [address] [id number] [address] [place] [address] 14 Dec, 2015 Other chronic pain G89.29 [facility] [address] [id number] [address] [place] [address] Dec, [facility] [address] [id number] [address] [place] [address] Nov, [facility] [address] [id number] [address] [place] [address] Nov, [facility] [address] [id number] [address] [place] [address] Nov, Type 2 diabetes mellitus wit hout [...] anemia, unspecified iron deficiency anemia type D50.9 [facility] [address] [id number] [address] [place] [address] Nov, [facility] [address] [id number] [address] [place] [address] Nov, [facility] [address] [id number] [address] [place] [address] Nov, [facility] [address] [id number] [address] [place] [address] Nov, [facility] [address] [id number] [address] [place] [address] Nov, [facility] [address] [id number] [address] [place] [address] Nov, [facility] [address] [id number] [address] [place] [address] Nov, [facility] [address] [id number] [address] [place] [address] Jul, [facility] [address] [id number] [address] [place] [address] Jul, [facility] [address] [id number] [address] [place] [address] August, [facility] [address] [id number] [address] [place] [address] Jun, [facility] [address] [id number] [address] [place] [address] Oct, IMMUNIZATIONS No Known Immunizations SOCIAL HISTORY Never Assessed REASON FOR VISIT medication reconciliation--order summary [place] PLAN OF CARE VITAL SIGNS MEDICATIONS Medication Instructions Dosage Frequency Start Date End Date Duration S tatus Albuterol Sulfate (2.5 MG/3ML) 0.083% Inhalation every 4 hrs 3 ml a s needed 4h Not-Taking Furosemide 20 mg Orally Once a day 1 tablet 24h Active Duloxetine HCl 30 MG Orally Once a day 3 capsules 24h 30 Active Dicyclomine HCl 20 mg Orally 3 times a day 1 tablet 8h Active Pantoprazole Sodium 20 MG TAKE 1 TABLET BY MOUTH ONCE DAILY 30 Active Nystatin - Active Zofran 4 MG Orally every 8 hrs as needed 1 tablet Jul, Active Sennosides 8.6 MG Orally Once a day 2 tablets at bedtime as needed 24h 30 day(s) Active Blood Glucose Test Strip - In Vitro 3 times a day 8h Active Sodium Phosphate enema Active Chely-Tussin 100 MG/5ML Orally every 4 hrs 10 ml as needed 4h Active Meclizine HCl 12.5 MG Orally every 6 hrs as needed for dizzi ness 1 tablet as needed August, Active Magnesium Oxide 400 MG Orally Once a day 1 tablet as needed 24h 30 day(s) Active Atenolol 25 MG Orally Once a day 1 tablet 24h Active Victoza 18 MG/3ML Subcutaneous Once a day inject 1.8MG 24h 31 Active Acetaminophen 325 MG Orally every 4 hrs headache 2 capsule as needed Active Milk of Magnesia Concentrate 2400 MG/10ML Orally daily 30ml as needed 24 h Active MiraLax - as directed Active Ziprasidone HCl 20 mg Orally Twice a day 1 capsule with food 12h Active Metformin HCl 1000 MG TAKE 1 TABLET BY MOUTH TWICE DAILY 30 Active Glimepiride 4 MG Orally Once a day 1 tablet with breakf ast or the first main meal of the day 24h Active Hydrocodone-Acetaminophen 7.5-325 MG Orally 2 times a day 1 tablet 12h 15 Jan, 2018 28 days Active Ibuprofen 600 MG Orally Three times a day 1 tablet with food or milk as needed 8h Active Cyclobenzaprine HCl 10 MG Orally Three times a day 1 tablet as needed 8h Active Adult Aspirin EC Low Strength 81 MG Orally Once a day 1 tablet 24h Oct, Oct, 90 days Active Nystatin & Diaper Rash Product Active Hydrochlorothiazide 12.5 MG TAKE 1 CAPSULE BY MOUTH TWICE DAILY 30 Not-Taking Polysaccharide Iron Complex 150 MG Orally Twice a day 1 capsule 12h Active Tylenol 325 MG Orally every 4 hrs 1 tablet as needed 4h Active Klor-Con M20 20 meq Orally 2 times a day 1 tablet with food 12h Active RESULTS No Results [...]
--- OUTSIDE RECORDS SUMMARY | 2019-03-30 14:01 | XMS REPORT ---
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 Name Role Phone LAURIE MAHAJAN Unavailable PROBLEMS Type Condition ICD9-CM Code FEC56-AM Code Onset Dates Condition S tatus SNOMED Code Problem Lumbar disc disease M51.9 Active 77931896 Problem Neurogenic bladder N31.9 Active 3 95368270 Problem Polyneuropathy associated with underlying disease G63 Active 714129478 Problem Anxiety F41.9 Active 87562054 Problem Generalized anxiety disorder F41.1 A ctive 10439291 Problem Insomnia, unspecified type G47.00 Act craig 050139620 Problem Type 2 diabetes mellitus wit hout complication, without long-term current use of insulin E11.9 Active 535882013 Problem Gastroesophageal reflux disease without esophagitis K21.9 Active 882980589 Problem Other chronic pain G89.29 Active 8 8102594 Problem Psychosis, unspecified psychosis type F29 Active 05466800 Problem Fibromyalgia M79.7 Active 6051028 05 Problem Nicotine abuse Z72.0 Active 10577 008 Problem Irritable bowel syndrome with diarrhea K58.0 Active 687231131 Problem Chronic pain disorder G89.4 Active 900993157 Problem Meniere disease, unspecified laterality H81.09 Active 83300087 ALLERGIES No Information ENCOUNTERS Encounter Location Date Diagnosis [facility] [address] [facility] [id number] [place] [address] 07 Mar, 2018 Lumbar disc disease M51.9 [facility] [address] [place] [id number] Feb, Polyneuropathy associated with underlying disease G63 and Type 2 diabetes mellitus without complication, without long-term current use of insulin E11.9 [facility] [address] [facility] [id number] [address] [place] [address] Feb, [facility] [address] [id number] [address] [place] [address] Feb, Lumbar disc disease M51.9 [facility] [address] [id number] [address] [place] [address] Feb, [facility] [address] [id number] [address] [place] [address] Feb, Gastroesophageal reflux dise ase without esophagitis K21.9 [facility] [address] [id number] [address] [place] [id number] Jan, Dental examination Z01.20 [facility] [address] [id number] [address] [place] [address] Jan, Tooth abscess K04.7 [facility] [address] [id number] [address] [place] [id number] 15 Jan, 2018 Lumbar disc disease M51.9 [facility] [address] [id number] [address] [place] [phone] Jan, [facility] [address] [id number] [address] [place] [address] 14 Dec, 2017 [facility] [id number] Dec, 2017 Other acute back pain M54.9 and Lumbar disc disease M51.9 [facility] [address] [id number] [address] [place] [address] Nov, Lumbar disc disease M51.9 [facility] [address] [id number] [address] [place] [address] Nov, [facility] [address] [id number] [address] [place] [address] Oct, Lumbar disc disease M51.9 [facility] [address] [id number] [address] [place] [id number] 16 Oct, 2017 [facility] [address] [id number] Oct, Polyneuropathy associated with underlying disease G63 ; Type 2 diabetes mellitus without complication, without long-term current use of insulin E11.9 and Family history of CVA Z82.3 [facility] [address] [facility] [id number] [address] [place] [phone] Sep, Lumbar disc disease M51.9 [place] [address] [facility] [id number] [address] [place] [id number] Sep, [place] [address] [facility] [id number] [address] [place] [id number] August, Lumbar disc disease M51.9 [place] [address] [facility] [id number] [address] [place] [address] August, [facility] [address] [place] [id number] August, Meniere''s disease, unspecified laterality H81.09 and Type 2 diabetes mellitus without complication, without long-term current use of insulin E11.9 [place] [address] [facility] [id number] [address] [place] [address] August, BMI 40.0-44.9, adult Z68.41 and Anxiety F41.9 [place] [address] [facility] [id number] [address] [place] [address] Jul, Lumbar disc disease M51.9 [place] [address] [facility] [id number] [address] [place] [address] Jul, Generalized anxiety disorder F41.1 [place] [address] [facility] [id number] [address] [place] [address] Jul, [place] [address] [place] [id number] [address] [place] [address] Jul, Lumbar disc disease M51.9 [facility] [address] [id number] Jun, Urinary tract infection without hematuria, site unspecified N39.0 ; Bilateral impacted cerumen H61.23 ; Loose stools R19.5 and Type 2 diabetes mellitus without complication, without long-term current use of insulin E11.9 [facility] [address] [facility] [id number] [address] [place] [phone] Jun, [facility] [address] [facility] [id number] [address] [place] [phone] 15 Jun, 2017 Fibromyalgia M79.7 [facility] [address] [facility] [id number] [address] [place] [address] 12 Jun, 2017 Breast mass, right N63.10 [place] [address] [facility] [id number] [address] [place] [address] 09 Jun, 2017 Breast mass, right N63.10 [facility] [address] [place] [id number] Jun, Breast mass, right N63.10 ; Type 2 diabetes mellitus without complication, without long-term current use of insulin E11.9 and Fibromyalgia M79.7 [facility] [address] [facility] [id number] [address] [place] [address] Jun, Gastroesophageal reflux dise ase without esophagitis K21.9 [facility] [address] [id number] [place] [id number] Jun, Lumbar disc disease M51.9 [facility] [address] [facility] [id number] [address] [place] [address] May, [facility] [address] [id number] [place] [id number] May, [facility] [address] [id number] [place] [id number] May, [facility] [address] [id number] [place] [id number] May, Lumbar disc disease M51.9 [facility] [address] [id number] [place] [id number] Apr, [facility] [id number] Apr, Viral upper respiratory tract infection J06.9 and Impacted cerumen, bilateral H61.23 [facility] [address] [id number] [place] [id number] Apr, [facility] [address] [facility] [id number] [address] [place] [address] Apr, [facility] [address] [id number] [place] [id number] Apr, Lumbar disc disease M51.9 [facility] [id number] Mar, Lumbar disc disease M51.9 and Fibromyalgia M79.7 [facility] [address] [facility] [id number] [address] [place] [address] Mar, [facility] [address] [id number] [place] [id number] Feb, [facility] [address] [facility] [id number] [address] [place] [address] Jan, Type 2 diabetes mellitus wit hout complication, without long-term current use of insulin E11.[address] [id number] Jan, Type 2 diabetes mellitus without complication, without long-term current use of insulin E11.9 ; Fibromyalgia M79.7 and Lumbar disc disease M51.9 [facility] [address] [id number] [place] [id number] Jan, [facility] [address] [id number] [place] [id number] Jan, [facility] [address] [id number] [address] [place] [address] Dec, [facility] [address] [id number] [place] [id number] Dec, [facility] [address] [id number] [place] [id number] Dec, [facility] [address] [id number] [place] [id number] Nov, Pre-procedure lab exam Z01.812 [facility] [address] [id number] [address] [place] [address], [place] [id number] Nov, Ventral hernia without obstr uction or gangrene K43.9 [facility] [address] [id number] [place] [id number] Nov, [facility] [address] [id number] [place] [id number] Nov, [facility] [address] [place] [id number] Nov, Ventral hernia without obstruction or gangrene K43.9 [facility] [address] [facility] [id number] Nov, Fibromyalgia M79.7 and Polyneuropathy associated with underlying disease G63 [facility] [address] [id number] [address] [place] [address], [place] [id number] Oct, [facility] [address] [id number] [place] [id number] Oct, [facility] [address] [id number] [place] [id number] Oct, [facility] [address] [id number] [place] [id number] Oct, [facility] [address] [id number] [place] [id number] Sep, [facility] [address] [id number] [address] [place] [address], [place] [id number] Sep, [facility] [address] [id number] [address] [place] [address], [place] [phone] Sep, [facility] [address] [id number] [address] [place] [address] August, [facility] [address] [place] [id number] August, Right medial knee pain M25.561 [facility] [address] [id number] [facility] [id number] August, [facility] [address] [id number] [facility] [address] August, [facility] [address] [id number] [address] [place] [address], [place] [id number] August, [facility] [address] [id number] [place] [id number] August, [facility] [address] [id number] [facility] [phone] August, [facility] [address] [id number] [place] [id number] August, [facility] [address] [id number] [place] [id number] Jul, [facility] [address] [id number] [address] [place] [address], [place] [id number] Jul, [facility] [address] [id number] [place] [id number] Jul, [facility] [address] [id number] [address] [place] [address], [place] [phone] Jun, [facility] [address] [id number] [address] [place] [address], [place] [id number] Jun, [facility] [address] [id number] [address] [place] [address], [place] [phone] May, [facility] [address] [id number] [address] [place] [address], [place] [id number] May, [facility] [address] [id number] [address] [place] [address], [place] [id number] May, [facility] [address] [id number] [address] [place] [address] May, [facility] [address] [id number] [address] [place] [phone] Apr, [facility] [address] [id number] Apr, Upper respiratory infection with cough and congestion J06.9 [facility] [id number] [place] [id number] Apr, [facility] [address] [facility] [id number] [address] [place] [id number] Apr, [facility] [address] [facility] [id number] [address] [place] [address] Mar, [facility] [address] [id number] [address] [place] [address] Mar, [facility] [address] [facility] [id number] [address] [place] [address] Mar, Other chronic pain G89.29 [facility] [address] [facility] [id number] [address] [place] [phone] Mar, [facility] [address] [facility] [id number] [address] [place] [address] Mar, [facility] [address] [facility] [id number] [address] [place] [address] Feb, [facility] [address] [facility] [id number] [address] [place] [address] Feb, [facility] [address], [place] [id number] Feb, Insomnia, unspecified type G47.00 and Swelling of face R22.0 [facility] [address] [id number] [address] [place] [address] Feb, [facility] [address] [facility] [id number] [address] [place] [address] 14 Feb, 2016 [facility] [address] [id number] [address] [place] [phone] 07 Feb, 2016 [facility] [address] [id number] [address] [place] [address] Feb, [facility] [address] [id number] [address] [place] [address] 24 Jan, 2016 [facility] [address] [id number] [address] [place] [address] 17 Jan, 2016 [facility] [address] [id number] [address] [place] [address] 14 Jan, 2016 Neurogenic bladder N31.9 [facility] [address] [id number] [address] [place] [address] 10 Jan, 2016 [facility] [address] [id number] [address] [place] [address] Jan, [facility] [address] [id number] [address] [place] [address] Jan, [facility] [address] [id number] [address] [place] [address] Jan, [facility] [address] [id number] [address] [place] [address] Jan, Screening for breast cancer Z12.39 [facility] [address] [id number] [address] [place] [address] Jan, [facility] [address] [id number] [address] [place] [address] 27 Dec, 2015 Type 2 diabetes mellitus wit hout complication, without long-term current use of insulin E11.9 ; Lumbar disc disease M51.9 ; Polyneuropathy associated with underlying disease G63 and Neurogenic bladder N31.9 [facility] [address] [id number] [address] [place] [address] 16 Dec, 2015 [facility] [address] [id number] [address] [place] [address] 14 Dec, 2016 Other chronic pain G89.29 [facility] [address] [id number] [address] [place] [address] Dec, [facility] [address] [id number] [address] [place] [address] Nov, [facility] [address] [id number] [address] [place] [address] Nov, [facility] [address] [id number] [address] [place] [address] Nov, Type 2 diabetes mellitus wit hout [...] anemia, unspecified iron deficiency anemia type D50.9 [facility] [address] [id number] [address] [place] [address] Nov, [facility] [address] [id number] [address] [place] [phone] Nov, [facility] [address] [facility] [id number] [address] [place] [phone] Nov, [facility] [address] [facility] [id number] [address] [place] [phone] Nov, [facility] [address] [id number] [address] [place] [address] Nov, [facility] [address] [id number] [address] [place] [address] Nov, [facility] [address] [facility] [id number] [address] [place] [address] Nov, [facility] [address] [facility] [id number] [address] [place] [phone] 14 Jul, 2014 [facility] [address] [facility] [id number] [address] [place] [address] Jul, [facility] [address] [facility] [id number] [address] [place] [id number] August, [facility] [address] [facility] [id number] [address] [place] [address] Jun, [facility] [address] [facility] [id number] [address] [place] [address] Oct, IMMUNIZATIONS No Known Immunizations SOCIAL HISTORY Never Assessed REASON FOR VISIT [facility] Narc Refill PLAN OF CARE VITAL SIGNS MEDICATIONS Medication Instructions Dosage Frequency Start Date End Date Duration S rya Hydrocodone-Acetaminophen 7.5-325 MG Orally 2 times a day 1 tablet 12h Mar, 28 days Active RESULTS No Results PROCEDURES [...]
--- OUTSIDE RECORDS SUMMARY | 2019-03-30 14:01 | XMS REPORT ---
Author Author Sharifa NUGENT Organization [facility] Address Unknown Care Team Providers Care Bailer Operators Supervisor Name Role Phone ANGELIQUE NUGENT Unavailable PROBLEMS Type Condition ICD9-CM Code [id number] Code Onset Dates Condition S tatus SNOMED Code Problem Lumbar disc disease M51.9 Active 36261779 Problem Neurogenic bladder N31.9 Active 3 14173985 Problem Polyneuropathy associated with underlying disease G63 Active 305384759 Problem Anxiety F41.9 Active 74465041 Problem Generalized anxiety disorder F41.1 A ctive 28773825 Problem Insomnia, unspecified type G47.00 Act craig 329468425 Problem Type 2 diabetes mellitus wit hout complication, without long-term current use of insulin E11.9 Active 895203308 Problem Gastroesophageal reflux disease without esophagitis K21.9 Active 570270464 Problem Other chronic pain G89.29 Active 8 3681081 Problem Psychosis, unspecified psychosis type F29 Active 85710176 Problem Fibromyalgia M79.7 Active 7606470 05 Problem Nicotine abuse Z72.0 Active 31881 008 Problem Irritable bowel syndrome with diarrhea K58.0 Active 150884191 Problem Chronic pain disorder G89.4 Active 225842140 Problem Meniere disease, unspecified laterality H81.09 Active 06575532 ALLERGIES Substance Reaction Event Type Date Status Penicillins Unknown Non Drug Allergy Jan, Active Sulfa(sulfonamide Antibiotics) Unknown Non Drug Allergy Jan Active keflex Unknown Non Drug Allergy Jan, Active ENCOUNTERS Encounter Location Date Diagnosis [facility] [address] [id number] [address] [place] [address] [id number] Jan, Dental examination Z01.20 [facility] [address] [facility] [id number] [address] [place] [phone] Jan, Tooth abscess K04.7 [facility] [address] [facility] [id number] [address] [place] [phone] 15 Jan, 2018 Lumbar disc disease M51.9 [facility] [address] [id number] [address] [place] [phone] 02 Jan, 2018 [facility] [address] [id number] [address] [place] [phone] 14 Dec, 2017 Lumbar disc disease M51.9 [facility] [address] [place] [id number] 13 Dec, 2017 Other acute back pain M54.9 and Lumbar disc disease M51.9 [facility] [address] [id number] [address] [place] [phone] Nov, Lumbar disc disease M51.9 [facility] [address] [id number] [address] [place] [id number] Nov, [facility] [address] [id number] [address] [place] [address] Oct, Lumbar disc disease M51.9 [facility] [address] [id number] [address] [place] [phone] Oct, [facility] [address] [place] [id number] Oct, Polyneuropathy associated with underlying disease G63 ; Type 2 diabetes mellitus without complication, without long-term current use of insulin E11.9 and Family history of CVA Z82.3 [facility] [address] [id number] [address] [place] [id number] Sep, Lumbar disc disease M51.9 [facility] [address] [id number] [address] [place] [phone] Sep, [facility] [address] [id number] [address] [place] [address] August, Lumbar disc disease M51.9 [facility] [address] [id number] [address] [place] [address] August, [facility] [address] [place] [id number] August, Meniere''s disease, unspecified laterality H81.09 and Type 2 diabetes mellitus without complication, without long-term current use of insulin E11.9 [facility] [address] [facility] [id number] [address] [place] [address] August, BMI 40.0-44.9, adult Z68.41 and Anxiety F41.9 [place] [address] [place] [id number] [address] [place] [phone] Jul, Lumbar disc disease M51.9 [place] [address] [place] [id number] [address] [place] [phone] Jul, Generalized anxiety disorder F41.1 [place] [address] [place] [id number] [address] [place] [phone] Jul, [place] [address] [place] [id number] [address] [place] [phone] Jul, Lumbar disc disease M51.9 [facility] [address] [place] [id number] Jun, Urinary tract infection without hematuria, site unspecified N39.0 ; Bilateral impacted cerumen H61.23 ; Loose stools R19.5 and Type 2 diabetes mellitus without complication, without long-term current use of insulin E11.9 [place] [id number] [place] [phone] Jun, [place] [id number] [place] [address] Jun, Fibromyalgia M79.7 [place] [address] [place] [id number] [address] [place] [phone] Jun, Breast mass, right N63.10 [place] [address] [place] [id number] [address] [place] [address] Jun, Breast mass, right N63.10 [facility] [address] [place] [id number] Jun, Breast mass, right N63.10 ; Type 2 diabetes mellitus without complication, without long-term current use of insulin E11.9 and Fibromyalgia M79.7 [facility] [address] [facility] [id number] [address] [place] [phone] Jun, Gastroesophageal reflux dise ase without esophagitis K21.9 [facility] [address] [id number] [place] [id number] Jun, Lumbar disc disease M51.9 [facility] [address] [facility] [id number] [address] [place] [phone] May, [facility] [address] [id number] [place] [id number] May, [facility] [address] [id number] [place] [id number] May, [facility] [address] [id number] [place] [id number] May, Lumbar disc disease M51.9 [facility] [address] [id number] [place] [id number] Apr, [facility] [address] [place] [id number] Apr, Viral upper respiratory tract infection J06.9 and Impacted cerumen, bilateral H61.23 [facility] [address] [id number] [place] [id number] Apr, [facility] [address] [facility] [id number] [address] [place] [phone] Apr, [facility] [address] [id number] [place] [id number] Apr, Lumbar disc disease M51.9 [facility] [address] [place] [id number] Mar, Lumbar disc disease M51.9 and Fibromyalgia M79.7 [facility] [address] [facility] [id number] [address] [place] [phone] Mar, [place] [address] [id number] [place] [id number] Feb, [facility] [address] [id number] [address] [place] [id number] Jan, Type 2 diabetes mellitus wit hout complication, without long-term current use of insulin E11.9 [facility] [address] [place] [id number] Jan, Type 2 diabetes mellitus without complication, without long-term current use of insulin E11.9 ; Fibromyalgia M79.7 and Lumbar disc disease M51.9 [facility] [address] [id number] [place] [id number] Jan, [facility] [address] [id number] [place] [id number] Jan, [facility] [address] [facility] [id number] [address] [place] [phone] Dec, [facility] [address] [id number] [place] [id number] Dec, [facility] [address] [id number] [place] [id number] Dec, [facility] [address] [id number] [place] [id number] Nov, Pre-procedure lab exam Z01.812 [facility] [address] [id number] [address] [place] [address], [place] [address] Nov, Ventral hernia without obstr uction or gangrene K43.9 [facility] [address] [id number] [place] [id number] Nov, [facility] [address] [id number] [place] [id number] Nov, [facility] [address] [place] [id number] Nov, Ventral hernia without obstruction or gangrene K43.9 [facility] [address] [place] [id number] Nov, Fibromyalgia M79.7 and Polyneuropathy associated with underlying disease G63 [facility] [address] [id number] [address] [place] [address], [place] [address] Oct, [facility] [address] [id number] [place] [id number] Oct, [facility] [address] [id number] [place] [id number] Oct, [facility] [address] [id number] [place] [id number] Oct, [facility] [address] [id number] [place] [id number] Sep, [facility] [address] [id number] [address] [place] [address], [place] [address] Sep, [facility] [address] [id number] [address] [place] [address], [place] [address] Sep, [facility] [address] [id number] [address] [place] [address], [place] [address] August, [facility] [address] [place] [id number] August, Right medial knee pain M25.561 [facility] [address] [id number] [address] [place] [address], [place] [address] August, [facility] [address] [id number] [address] [place] [phone] August, [facility] [address] [id number] [address] [place] [address], [place] [address] August, [facility] [address] [id number] [place] [id number] August, [facility] [address] [id number] [address] [place] [address], [place] [address] August, [facility] [address] [id number] [place] [id number] August, [facility] [address] [id number] [place] [id number] Jul, [facility] [address] [id number] [address] [place] [address], [place] [address] Jul, [facility] [address] [id number] [place] [id number] Jul, [facility] [address] [id number] [address] [place] [address], [place] [address] Jun, [facility] [address] [id number] [address] [place] [address], [place] [address] Jun, [facility] [address] [id number] [address] [place] [address], [place] [address] May, [facility] [address] [id number] [address] [place] [address], [place] [address] May, [facility] [address] [id number] [address] [place] [address], [place] [address] May, [facility] [address] [id number] [address] [place] [address], [place] [address] May, [facility] [address] [id number] [address] [place] [address], [place] [address] Apr, [facility] [address] [place] [id number] Apr, Upper respiratory infection with cough and congestion J06.9 [facility] [address] [id number] [place] [id number] Apr, [facility] [address] [id number] [address] [place] [address], [place] [address] Apr, [facility] [address] [id number] [address] [place] [address], [place] [address] Mar, [facility] [address] [id number] [address] [place] [address], [place] [address] Mar, [facility] [address] [id number] [address] [place] [address] Mar, Other chronic pain G89.29 [facility] [address] [id number] [address] [place] [address] Mar, [facility] [address] [id number] [address] [place] [address] Mar, [facility] [address] [id number] [address] [place] [address] Feb, [facility] [address] [id number] [address] [place] [address] Feb, [facility] [address] [place] [id number] Feb, Insomnia, unspecified type G47.00 and Swelling of face R22.0 [facility] [address] [id number] [address] [place] [address] Feb, [facility] [address] [id number] [address] [place] [phone] Feb, [facility] [address] [id number] [address] [place] [address] Feb, [facility] [address] [id number] [address] [place] [address] Feb, [facility] [address] [id number] [address] [place] [id number] 24 Jan, 2016 [facility] [address] [id number] [address] [place] [id number] 17 Jan, 2016 [facility] [address] [id number] [address] [place] [address] 14 Jan, 2016 Neurogenic bladder N31.9 [facility] [address] [id number] [address] [place] [phone] 10 Jan, 2016 [facility] [address] [id number] [address] [place] [address] Jan, [facility] [address] [id number] [address] [place] [address] Jan, [facility] [address] [id number] [address] [place] [address] Jan, [facility] [address] [facility] [id number] [address] [place] [address] Jan, Screening for breast cancer Z12.39 [facility] [address] [id number] [address] [place] [address] Jan, [facility] [address] [id number] [address] [place] [address] Dec, Type 2 diabetes mellitus wit hout complication, without long-term current use of insulin E11.9 ; Lumbar disc disease M51.9 ; Polyneuropathy associated with underlying disease G63 and Neurogenic bladder N31.9 [facility] [address] [facility] [id number] [address] [place] [phone] 16 Dec, 2015 [facility] [address] [id number] [address] [place] [address] 14 Dec, 2015 Other chronic pain G89.29 [place] [address] [id number] [address] [place] [address] Dec, [facility] [address] [facility] [id number] [address] [place] [address] Nov, [facility] [address] [facility] [id number] [address] [place] [id number] Nov, [facility] [address] [facility] [id number] [address] [place] [id number] Nov, Type 2 diabetes mellitus wit hout [...] anemia, unspecified iron deficiency anemia type D50.9 [facility] [address] [id number] [address] [place] [address] Nov, [facility] [address] [id number] [address] [place] [address] Nov, [facility] [address] [id number] [address] [place] [address] Nov, [facility] [address] [id number] [address] [place] [phone] Nov, [facility] [address] [id number] [address] [place] [address] Nov, [facility] [address] [id number] [address] [place] [address] Nov, [facility] [address] [id number] [address] [place] [address] Nov, [facility] [address] [id number] [address] [place] [address] Jul, [facility] [address] [id number] [address] [place] [phone] Jul, [facility] [address] [id number] [address] [place] [address] August, [facility] [address] [id number] [address] [place] [phone] Jun, [facility] [address] [id number] [address] [place] [id number] Oct, IMMUNIZATIONS No Known Immunizations SOCIAL HISTORY Never Assessed REASON FOR VISIT pain/facial swelling PLAN OF CARE Activity Details Follow Up 6 days Reason:[facility] SIGNS MEDICATIONS Medication Instructions Dosage Frequency Start Date End Date Duration S tatus Adult Aspirin EC Low Strength 81 MG Orally Once a day 1 tablet 24h Oct, Oct, 90 days Active Zofran 4 MG Orally every 8 hrs as needed 1 tablet Jul, Active Furosemide 20 mg Orally Once a day 1 tablet 24h Active Sodium Phosphate enema Active Albuterol Sulfate (2.5 MG/3ML) 0.083% Inhalation every 4 hrs 3 ml a s needed 4h Active Acetaminophen 325 MG Orally every 4 hrs headache 2 capsule as needed Active Metformin HCl 1000 MG TAKE 1 TABLET BY MOUTH TWICE DAILY 30 Active Polysaccharide Iron Complex 150 MG Orally Twice a day 1 capsule 12h Active Blood Glucose Test Strip - In Vitro 3 times a day 8h Active Ziprasidone HCl 20 mg Orally Twice a day 1 capsule with food 12h Active Chely-Tussin 100 MG/5ML Orally every 4 hrs 10 ml as needed 4h Active Hydrocodone-Acetaminophen 7.5-325 MG Orally 2 times a day 1 tablet 12h 15 Jan, 2018 28 days Active Glimepiride 4 MG Orally Once a day 1 tablet with breakf ast or the first main meal of the day 24h Active Dicyclomine HCl 20 mg Orally 3 times a day 1 tablet 8h Active Atenolol 25 MG Orally Once a day 1 tablet 24h Active Nystatin - Active Clindamycin HCl 150 MG Orally Three times a day 1 capsule 8h Jan, Jan, 10 day(s) Active Duloxetine HCl 30 MG Orally Once a day 3 capsules 24h Active Victoza 18 MG/3ML Subcutaneous Once a day inject 1.8MG 24h 31 Active Hydrochlorothiazide 12.5 MG TAKE 1 CAPSULE BY MOUTH TWICE DAILY 30 Active Milk of Magnesia Concentrate 2400 MG/10ML Orally daily 30ml as needed 24 h Active Klor-Con M20 20 meq Orally 2 times a day 1 tablet with food 12h Active Meclizine HCl 12.5 MG Orally every 6 hrs as needed for dizzi ness 1 tablet as needed August, Active Pantoprazole Sodium 20 MG TAKE 1 TABLET BY MOUTH ONCE DAILY 30 Active RESULTS No Results PROCEDURES Procedure Date Ordered Result Body Site LTD ORAL EVALUATION - PROBLEM FOCUS Jan 19, 2018 INSTRUCTIONS MEDICATIONS ADMINISTERED No Known Medications MEDICAL [...]
--- OUTSIDE RECORDS SUMMARY | 2019-03-30 14:01 | XMS REPORT ---
Author Author Sharifa MAHAJAN Organization [facility] Address [address] [place] [address] Care Team Providers Care Grinder Outside Diameter Name Role Phone LAURIE MAHAJAN Unavailable PROBLEMS Type Condition ICD9-CM Code ATF68-GH Code Onset Dates Condition S tatus SNOMED Code Problem Lumbar disc disease M51.9 Active 33938150 Problem Neurogenic bladder N31.9 Active 3 89430544 Problem Polyneuropathy associated with underlying disease G63 Active 976944504 Problem Anxiety F41.9 Active 16827462 Problem Generalized anxiety disorder F41.1 A ctive 98513417 Problem Insomnia, unspecified type G47.00 Act craig 395977706 Problem Type 2 diabetes mellitus wit hout complication, without long-term current use of insulin E11.9 Active 723329785 Problem Gastroesophageal reflux disease without esophagitis K21.9 Active 186809420 Problem Other chronic pain G89.29 Active 8 8169033 Problem Psychosis, unspecified psychosis type F29 Active 13990449 Problem Fibromyalgia M79.7 Active 5355339 05 Problem Nicotine abuse Z72.0 Active 42333 008 Problem Irritable bowel syndrome with diarrhea K58.0 Active 263127421 Problem Chronic pain disorder G89.4 Active 364073491 Problem Meniere disease, unspecified laterality H81.09 Active 91357159 ALLERGIES No Information ENCOUNTERS Encounter Location Date Diagnosis [facility] [address] [facility] [id number] [address] [place] [phone] Feb, Lumbar disc disease M51.9 [facility] [address] [facility] [id number] [address] [place] [phone] Feb, [facility] [address] [facility] [id number] [address] [place] [phone] Feb, Gastroesophageal reflux dise ase without esophagitis K21.9 [facility] [address] [facility] [id number] [address] [place] [id number] 17 Jan, 2018 Dental examination Z01.20 [facility] [address] [id number] [address] [place] [id number] 17 Jan, 2018 Tooth abscess K04.7 [facility] [address] [id number] [address] [place] [id number] 15 Jan, 2018 Lumbar disc disease M51.9 [facility] [address] [id number] [address] [place] [phone] Jan, [facility] [address] [id number] [address] [place] [id number] 14 Dec, 2017 [facility]51.[facility] [id number] 13 Dec, 2017 Other acute back pain M54.9 and Lumbar disc disease M51.9 [facility] [address] [id number] [address] [place] [phone] Nov, Lumbar disc disease M51.9 [facility] [address] [id number] [address] [place] [phone] Nov, [facility] [address] [id number] [address] [place] [phone] Oct, Lumbar disc disease M51.9 [facility] [address] [id number] [address] [place] [phone] Oct, [facility] [address] [place] [id number] Oct, Polyneuropathy associated with underlying disease G63 ; Type 2 diabetes mellitus without complication, without long-term current use of insulin E11.9 and Family history of CVA Z82.3 [facility] [address] [id number] [address] [place] [phone] Sep, Lumbar disc disease M51.9 [facility] [address] [id number] [address] [place] [id number] Sep, [place] [address] [facility] [id number] [address] [place] [phone] August, Lumbar disc disease M51.9 [place] [address] [facility] [id number] [address] [place] [address] August, [facility] [address] [place] [id number] August, Meniere''s disease, unspecified laterality H81.09 and Type 2 diabetes mellitus without complication, without long-term current use of insulin E11.9 [place] [address] [facility] [id number] [address] [place] [address] August, BMI 40.0-44.9, adult Z68.41 and Anxiety F41.9 [place] [address] [place] [id number] [address] [place] [id number] Jul, Lumbar disc disease M51.9 [place] [address] [place] [id number] [address] [place] [phone] Jul, Generalized anxiety disorder F41.1 [place] [address] [place] [id number] [address] [place] [phone] Jul, [place] [address] [place] [id number] [address] [place] [address] Jul, Lumbar disc disease M51.9 [facility] [address] [place] [id number] Jun, Urinary tract infection without hematuria, site unspecified N39.0 ; Bilateral impacted cerumen H61.23 ; Loose stools R19.5 and Type 2 diabetes mellitus without complication, without long-term current use of insulin E11.9 [place] [address] [facility] [id number] [address] [place] [phone] Jun, [place] [address] [place] [id number] [address] [place] [address] Jun, Fibromyalgia M79.7 [place] [address] [place] [id number] [address] [place] [address] Jun, Breast mass, right N63.10 [facility] [address] [facility] [id number] [address] [place] [phone] Jun, Breast mass, right N63.10 [facility] [address] [place] [id number] Jun, Breast mass, right N63.10 ; Type 2 diabetes mellitus without complication, without long-term current use of insulin E11.9 and Fibromyalgia M79.7 [facility] [address] [facility] [id number] [address] [place] [phone] Jun, Gastroesophageal reflux dise ase without esophagitis K21.9 [facility] [address] [id number] [place] [id number] Jun, Lumbar disc disease M51.9 [facility] [address] [facility] [id number] [address] [place] [phone] May, [facility] [address] [id number] [place] [id number] May, [facility] [address] [id number] [place] [id number] May, [facility] [address] [id number] [place] [id number] May, Lumbar disc disease M51.9 [facility] [address] [id number] [place] [id number] Apr, [facility] [address] [place] [id number] Apr, Viral upper respiratory tract infection J06.9 and Impacted cerumen, bilateral H61.23 [facility] [address] [id number] [place] [id number] Apr, [facility] [address] [facility] [id number] [address] [place] [phone] Apr, [facility] [address] [id number] [place] [id number] Apr, Lumbar disc disease M51.9 [facility] [address] [place] [id number] Mar, Lumbar disc disease M51.9 and Fibromyalgia M79.7 [facility] [address] [id number] [address] [place] [id number] Mar, [facility] [address] [id number] [place] [id number] Feb, [facility] [address] [id number] [address] [place] [address] Jan, Type 2 diabetes mellitus wit hout complication, without long-term current use of insulin E11.9 [facility] [address] [place] [id number] Jan, Type 2 diabetes mellitus without complication, without long-term current use of insulin E11.9 ; Fibromyalgia M79.7 and Lumbar disc disease M51.9 [facility] [address] [id number] [place] [id number] Jan, [facility] [address] [id number] [place] [id number] Jan, [facility] [address] [facility] [id number] [address] [place] [phone] Dec, [facility] [address] [id number] [place] [id number] Dec, [facility] [address] [id number] [place] [id number] Dec, [facility] [address] [id number] [place] [id number] Nov, Pre-procedure lab exam Z01.812 [facility] [address] [id number] [address] [place] [phone] Nov, Ventral hernia without obstr uction or gangrene K43.9 [facility] [address] [id number] [place] [id number] Nov, [facility] [address] [id number] [place] [id number] Nov, [facility] [address] [facility] [id number] Nov, Ventral hernia without obstruction or gangrene K43.9 [facility] [address] [facility] [place] [id number] Nov, Fibromyalgia M79.7 and Polyneuropathy associated with underlying disease G63 [facility] [address] [id number] [address] [place] [address], [place] [address] Oct, [facility] [address] [id number] [place] [id number] Oct, [facility] [address] [id number] [place] [id number] Oct, [facility] [address] [id number] [place] [id number] Oct, [facility] [address] [id number] [place] [id number] Sep, [facility] [address] [id number] [address] [place] [address], [place] [address] Sep, [facility] [address] [id number] [address] [place] [phone] Sep, [facility] [address] [id number] [address] [place] [address] August, [facility] [address] [facility] [id number] August, Right medial knee pain M25.561 [facility] [address] [id number] [address] [place] [address] August, [facility] [address] [id number] [address] [place] [address] August, [facility] [address] [id number] [address] [place] [address] August, [facility] [address] [id number] [place] [id number] August, [facility] [address] [id number] [address] [place] [address], [place] [address] August, [facility] [address] [id number] [place] [id number] August, [facility] [address] [id number] [place] [id number] Jul, [facility] [address] [id number] [address] [place] [address], [place] [address] Jul, [facility] [address] [id number] [place] [id number] Jul, [facility] [address] [id number] [address] [place] [address], [place] [address] Jun, [facility] [address] [id number] [address] [place] [address], [place] [address] Jun, [facility] [address] [id number] [address] [place] [address], [place] [address] May, [facility] [address] [id number] [address] [place] [address], [place] [address] May, [facility] [address] [id number] [address] [place] [address], [place] [address] May, [facility] [address] [id number] [address] [place] [address], [place] [address] May, [facility] [address] [id number] [address] [place] [address], [place] [address] Apr, [facility] [address] [place] [id number] Apr, Upper respiratory infection with cough and congestion J06.9 [facility] [address] [id number] [place] [id number] Apr, [facility] [address] [id number] [address] [place] [phone] Apr, [facility] [address] [id number] [address] [place] [address] Mar, [facility] [address] [id number] [address] [place] [address] Mar, [facility] [address] [id number] [address] [place] [address] Mar, Other chronic pain G89.29 [facility] [address] [id number] [address] [place] [id number] Mar, [facility] [address] [id number] [address] [place] [address] Mar, [facility] [address] [id number] [address] [place] [phone] Feb, [facility] [address] [id number] [address] [place] [address] Feb, [facility] [address] [place] [id number] Feb, Insomnia, unspecified type G47.00 and Swelling of face R22.0 [facility] [address] [id number] [address] [place] [id number] 16 Feb, 2016 [facility] [address] [id number] [address] [place] [id number] 14 Feb, 2016 [facility] [address] [id number] [address] [place] [phone] Feb, [facility] [address] [id number] [address] [place] [address] Feb, [facility] [address] [id number] [address] [place] [id number] 24 Jan, 2016 [facility] [address] [id number] [address] [place] [address] 17 Jan, 2016 [facility] [address] [id number] [address] [place] [id number] 14 Jan, 2016 Neurogenic bladder N31.9 [facility] [address] [id number] [address] [place] [id number] 10 Jan, 2016 [facility] [address] [id number] [address] [place] [address] Jan, [facility] [address] [id number] [address] [place] [address] Jan, [facility] [address] [id number] [address] [place] [address] Jan, [facility] [address] [facility] [id number] [address] [place] [address] Jan, Screening for breast cancer Z12.39 [facility] [address] [facility] [id number] [address] [place] [address] Jan, [facility] [address] [facility] [id number] [address] [place] [phone] 27 Dec, 2015 Type 2 diabetes mellitus wit hout complication, without long-term current use of insulin E11.9 ; Lumbar disc disease M51.9 ; Polyneuropathy associated with underlying disease G63 and Neurogenic bladder N31.9 [facility] [address] [facility] [id number] [address] [place] [address] 16 Dec, 2015 [facility] [address] [facility] [id number] [address] [place] [address] 14 Dec, 2016 Other chronic pain G89.29 [facility] [address] [id number] [address] [place] [phone] Dec, [facility] [address] [facility] [id number] [address] [place] [address] Nov, [facility] [address] [facility] [id number] [address] [place] [phone] Nov, [facility] [address] [facility] [id number] [address] [place] [phone] Nov, Type 2 diabetes mellitus wit hout [...] type D50.9 [facility] [address] [id number] [address] [place] [address] Nov, [facility] [address] [id number] [address] [place] [phone] Nov, [facility] [address] [id number] [address] [place] [phone] Nov, [facility] [address] [id number] [address] [place] [address] Nov, [facility] [address] [id number] [address] [place] [address] Nov, [facility] [address] [id number] [address] [place] [address] Nov, [facility] [address] [id number] [address] [place] [id number] Nov, [facility] [address] [id number] [address] [place] [address] Jul, [facility] [address] [id number] [address] [place] [phone] Jul, [facility] [address] [id number] [address] [place] [phone] August, [facility] [address] [id number] [address] [place] [id number] Jun, [facility] [address] [id number] [address] [place] [phone] Oct, IMMUNIZATIONS No Known Immunizations SOCIAL HISTORY Never Assessed REASON FOR VISIT Controlled Med Refill 02/14/18 PLAN OF CARE VITAL SIGNS MEDICATIONS Medication Instructions Dosage Frequency Start Date End Date Duration Sharon bell Hydrocodone-Acetaminophen 7.5-325 MG Orally 2 times a day 1 tablet 12h Feb, 28 days Active RESULTS No Results [...]
--- OUTSIDE RECORDS SUMMARY | 2019-03-30 14:01 | XMS REPORT ---
Author Author Sharifa MAHAJAN Organization [facility] Address [address] [place] [address] Care Team Providers Care Engineer Automated Equipment Name Role Phone LAURIE MAHAJAN Unavailable PROBLEMS Type Condition ICD9-CM Code PKH38-DY Code Onset Dates Condition S tatus SNOMED Code Problem Lumbar disc disease M51.9 Active 03954869 Problem Neurogenic bladder N31.9 Active 3 41178084 Problem Polyneuropathy associated with underlying disease G63 Active 860741524 Problem Anxiety F41.9 Active 27220462 Problem Generalized anxiety disorder F41.1 A ctive 79659430 Problem Insomnia, unspecified type G47.00 Act craig 467964899 Problem Type 2 diabetes mellitus wit hout complication, without long-term current use of insulin E11.9 Active 667580681 Problem Gastroesophageal reflux disease without esophagitis K21.9 Active 217677230 Problem Other chronic pain G89.29 Active 8 0471792 Problem Psychosis, unspecified psychosis type F29 Active 70473692 Problem Fibromyalgia M79.7 Active 3707415 05 Problem Nicotine abuse Z72.0 Active 52821 008 Problem Irritable bowel syndrome with diarrhea K58.0 Active 055187693 Problem Chronic pain disorder G89.4 Active 836280787 Problem Meniere disease, unspecified laterality H81.09 Active [id number] ALLERGIES No Information ENCOUNTERS Encounter Location Date Diagnosis [facility] [address] [facility] [id number] [address] [place] [address] Feb, Gastroesophageal reflux dise ase without esophagitis K21.9 [facility] [address] [id number] [address] [place] [id number] Jan, Dental examination Z01.20 [facility] [address] [facility] [id number] [address] [place] [address] Jan, Tooth abscess K04.7 [facility] [address] [id number] [address] [place] [id number] 15 Jan, 2018 Lumbar disc disease M51.9 [facility] [address] [id number] [address] [place] [address] 02 Jan, 2018 [facility] [address] [id number] [address] [place] [address] 14 Dec, 2017 Lumbar disc disease M51.9 [facility] [address] [place] [id number] 13 Dec, 2017 Other acute back pain M54.9 and Lumbar disc disease M51.9 [facility] [address] [id number] [address] [place] [address] Nov, Lumbar disc disease M51.9 [facility] [address] [id number] [address] [place] [address] Nov, [facility] [address] [id number] [address] [place] [address] Oct, Lumbar disc disease M51.9 [facility] [address] [id number] [address] [place] [address] 16 Oct, 2017 [facility] [address] [place] [id number] Oct, Polyneuropathy associated with underlying disease G63 ; Type 2 diabetes mellitus without complication, without long-term current use of insulin E11.9 and Family history of CVA Z82.3 [facility] [address] [id number] [address] [place] [address] Sep, Lumbar disc disease M51.9 [facility] [address] [id number] [address] [place] [address] Sep, [facility] [address] [id number] [address] [place] [address] August, Lumbar disc disease M51.9 [facility] [address] [id number] [address] [place] [address] August, [facility] [address] [place] [id number] August, Meniere''s disease, unspecified laterality H81.09 and Type 2 diabetes mellitus without complication, without long-term current use of insulin E11.9 [facility] [address] [place] [id number] [address] [place] [address] August, BMI 40.0-44.9, adult Z68.41 and Anxiety F41.9 [facility] [address] [place] [id number] [address] [place] [address] Jul, Lumbar disc disease M51.9 [facility] [address] [address] Jul, Generalized anxiety disorder F41.1 [facility] [address] [address] Jul, [facility] [address] [address] Jul, Lumbar disc disease M51.[address] [id number] Jun, Urinary tract infection without hematuria, site unspecified N39.0 ; Bilateral impacted cerumen H61.23 ; Loose stools R19.5 and Type 2 diabetes mellitus without complication, without long-term current use of insulin E11.9 [facility] [address] [place] [id number] [address] [place] [address] Jun, [facility] [id number] [place] [address] Jun, Fibromyalgia M79.7 [facility] [address] [address] Jun, Breast mass, right N63.10 [facility] [address] [place] [id number] [address] [place] [address] Jun, Breast mass, right N63.10 [facility] [address] [place] [id number] Jun, Breast mass, right N63.10 ; Type 2 diabetes mellitus without complication, without long-term current use of insulin E11.9 and Fibromyalgia M79.7 [facility] [address] [facility] [id number] [address] [place] [address] Jun, Gastroesophageal reflux dise ase without esophagitis K21.9 [facility] [place] [address] [id number] [place] [id number] Jun, Lumbar disc disease M51.9 [facility] [address] [facility] [id number] [address] [place] [address] May, [facility] [place] [address] [id number] [place] [id number] May, [facility] [place] [address] [id number] [place] [id number] May, [facility] [place] [address] [id number] [place] [id number] May, Lumbar disc disease M51.9 [facility] [place] [address] [id number] [place] [id number] Apr, [facility] [address] [place] [id number] Apr, Viral upper respiratory tract infection J06.9 and Impacted cerumen, bilateral H61.23 [facility] [place] [address] [id number] [place] [id number] Apr, [facility] [address] [facility] [id number] [address] [place] [address] Apr, [facility] [place] [address] [id number] [place] [id number] Apr, Lumbar disc disease M51.9 [facility] [address] [place] [id number] Mar, Lumbar disc disease M51.9 and Fibromyalgia M79.7 [facility] [address] [facility] [id number] [address] [place] [address] Mar, [facility] [address] [id number] [place] [id number] Feb, [facility] [address] [facility] [id number] [address] [place] [address] Jan, Type 2 diabetes mellitus wit hout complication, without long-term current use of insulin E11.9 [facility] [address] [place] [id number] Jan, Type 2 diabetes mellitus without complication, without long-term current use of insulin E11.9 ; Fibromyalgia M79.7 and Lumbar disc disease M51.9 [facility] [place] [address] [id number] [place] [id number] Jan, [facility] [place] [address] [id number] [place] [id number] Jan, [facility] [address] [facility] [id number] [address] [place] [address] Dec, [facility] [address] [id number] [place] [id number] Dec, [facility] [place] [address] [id number] [place] [id number] Dec, [facility] [address] [id number] [place] [id number] Nov, Pre-procedure lab exam Z01.812 [facility] [address] [id number] [address] [place] [address] Nov, Ventral hernia without obstr uction or gangrene K43.9 [facility] [address] [id number] [place] [id number] Nov, [facility] [address] [id number] [place] [id number] Nov, [facility] [address] [place] [id number] Nov, Ventral hernia without obstruction or gangrene K43.9 [facility] [address] [place] [id number] Nov, Fibromyalgia M79.7 and Polyneuropathy associated with underlying disease G63 [facility] [address] [id number] [address] [place] [address], [place] [address] Oct, [facility] [address] [id number] [place] [id number] Oct, [facility] [address] [id number] [place] [id number] Oct, [facility] [address] [id number] [place] [id number] Oct, [facility] [address] [id number] [place] [id number] Sep, [facility] [address] [id number] [address] [place] [address], [place] [address] Sep, [facility] [address] [id number] [address] [place] [address], [place] [address] Sep, [facility] [address] [id number] [address] [place] [address], [place] [address] August, [facility] [address] [place] [id number] August, Right medial knee pain M25.561 [facility] [address] [id number] [address] [place] [address], [place] [address] August, [facility] [address] [id number] [address] [place] [address] August, [facility] [address] [id number] [address] [place] [address], [place] [address] August, [facility] [address] [id number] [place] [id number] August, [facility] [address] [id number] [address] [place] [address], [place] [address] August, [facility] [address] [id number] [place] [id number] August, [facility] [address] [id number] [place] [id number] Jul, [facility] [address] [id number] [address] [place] [address], [place] [address] Jul, [facility] [address] [id number] [place] [id number] Jul, [facility] [address] [id number] [address] [place] [address], [place] [address] Jun, [facility] [address] [id number] [address] [place] [address], [place] [address] Jun, [facility] [address] [id number] [address] [place] [address], [place] [address] May, [facility] [address] [id number] [address] [place] [address], [place] [address] May, [facility] [address] [id number] [address] [place] [address], [place] [address] May, [facility] [address] [id number] [address] [place] [address], [place] [address] May, [facility] [address] [id number] [address] [place] [address], [place] [address] Apr, [facility] [address] [place] [id number] Apr, Upper respiratory infection with cough and congestion J06.9 [facility] [address] [id number] [place] [id number] Apr, [facility] [address] [id number] [address] [place] [address], [place] [address] Apr, [facility] [address] [id number] [address] [place] [address], [place] [address] Mar, [facility] [address] [id number] [address] [place] [address] Mar, [facility] [address] [id number] [address] [place] [address] Mar, Other chronic pain G89.29 [facility] [address] [id number] [address] [place] [address] Mar, [facility] [address] [id number] [address] [place] [address] 05 Mar, 2016 [facility] [address] [id number] [address] [place] [address] 29 Feb, 2016 [facility] [address] [id number] [address] [place] [address] Feb, [facility] [address] [place] [id number] Feb, Insomnia, unspecified type G47.00 and Swelling of face R22.0 [facility] [address] [id number] [address] [place] [address] 16 Feb, 2016 [facility] [address] [id number] [address] [place] [address] Feb, [facility] [address] [id number] [address] [place] [address] Feb, [facility] [address] [id number] [address] [place] [address] Feb, [facility] [address] [id number] [address] [place] [address] 24 Jan, 2016 [facility] [address] [id number] [address] [place] [address] 17 Jan, 2016 [facility] [address] [id number] [address] [place] [address] 14 Jan, 2016 Neurogenic bladder N31.9 [facility] [address] [id number] [address] [place] [address] 10 Jan, 2016 [facility] [address] [facility] [id number] [address] [place] [address] Jan, [facility] [address] [facility] [id number] [address] [place] [address] Jan, [facility] [address] [facility] [id number] [address] [place] [address] Jan, [facility] [address] [facility] [id number] [address] [place] [address] Jan, Screening for breast cancer Z12.39 [facility] [address] [facility] [id number] [address] [place] [address] Jan, [facility] [address] [facility] [id number] [address] [place] [address] Dec, Type 2 diabetes mellitus wit hout complication, without long-term current use of insulin E11.9 ; Lumbar disc disease M51.9 ; Polyneuropathy associated with underlying disease G63 and Neurogenic bladder N31.9 [facility] [address] [facility] [id number] [address] [place] [address] 16 Dec, 2015 [facility] [address] [facility] [id number] [address] [place] [address] 14 Dec, 2015 Other chronic pain G89.29 [facility] [address] [facility] [id number] [address] [place] [address] Dec, [facility] [address] [facility] [id number] [address] [place] [address] Nov, [facility] [address] [facility] [id number] [address] [place] [address] Nov, [facility] [address] [facility] [id number] [address] [place] [address] Nov, Type 2 diabetes mellitus wit hout [...] type D50.9 [facility] [address] [id number] [address] [place] [address] Nov, [facility] [address] [id number] [address] [place] [address] Nov, [facility] [address] [id number] [address] [place] [address] Nov, [facility] [address] [id number] [address] [place] [address] Nov, [facility] [address] [id number] [address] [place] [address] Nov, [facility] [address] [id number] [address] [place] [address] Nov, [facility] [address] [id number] [address] [place] [address] Nov, [facility] [address] [id number] [address] [place] [address] Jul, [facility] [address] [id number] [address] [place] [address] Jul, [facility] [address] [id number] [address] [place] [address] August, [facility] [address] [id number] [address] [place] [address] Jun, [facility] [address] [id number] [address] [place] [address] Oct, IMMUNIZATIONS No Known Immunizations SOCIAL HISTORY Never Assessed REASON FOR VISIT medication changes per pharmacy request, half-way patient PLAN OF CARE VITAL SIGNS MEDICATIONS Unknown [...]
--- OUTSIDE RECORDS SUMMARY | 2019-03-30 14:01 | XMS REPORT ---
Author Author Sharifa MAHAJAN Organization [facility] Address [address] [place] [address] Care Team Providers Care Wind Energy Technician Name Role Phone LAURIE MAHAJAN Unavailable PROBLEMS Type Condition ICD9-CM Code NEL60-MN Code Onset Dates Condition S tatus SNOMED Code Problem Lumbar disc disease M51.9 Active 47876453 Problem Neurogenic bladder N31.9 Active 3 18559150 Problem Polyneuropathy associated with underlying disease G63 Active 035401250 Problem Anxiety F41.9 Active 81460285 Problem Generalized anxiety disorder F41.1 A ctive 30736177 Problem Insomnia, unspecified type G47.00 Act craig 105365668 Problem Type 2 diabetes mellitus wit hout complication, without long-term current use of insulin E11.9 Active 483919287 Problem Gastroesophageal reflux disease without esophagitis K21.9 Active 633936150 Problem Other chronic pain G89.29 Active 8 6641665 Problem Psychosis, unspecified psychosis type F29 Active 55037172 Problem Fibromyalgia M79.7 Active 4056389 05 Problem Nicotine abuse Z72.0 Active 93105 008 Problem Irritable bowel syndrome with diarrhea K58.0 Active 720612184 Problem Chronic pain disorder G89.4 Active 877803164 Problem Meniere disease, unspecified laterality H81.09 Active 48674302 ALLERGIES Substance Reaction Event Type Date Status Sulfa(sulfonamide Antibiotics) Unknown Non Drug Allergy Feb Active keflex Unknown Non Drug Allergy Feb, Active Penicillins Unknown Non Drug Allergy Feb, Active ENCOUNTERS Encounter Location Date Diagnosis [facility] [address] [place] [id number] Feb, Polyneuropathy associated with underlying disease G63 and Type 2 diabetes mellitus without complication, without long-term current use of insulin E11.9 [facility] [address] [facility] [id number] [address] [address] Feb, [facility] [address] [id number] [address] [place] [phone] Feb, Lumbar disc disease M51.9 [facility] [address] [id number] [address] [place] [address] Feb, [facility] [address] [id number] [address] [place] [address] Feb, Gastroesophageal reflux dise ase without esophagitis K21.9 [facility] [address] [id number] [address] [place] [id number] Jan, Dental examination Z01.20 [facility] [address] [id number] [address] [place] [phone] Jan, Tooth abscess K04.7 [facility] [address] [id number] [address] [place] [address] Jan, Lumbar disc disease M51.9 [facility] [address] [id number] [address] [place] [address] Jan, [facility] [address] [id number] [address] [place] [address] 14 Dec, 2017 Lumbar disc disease M51.[address] [id number] Dec, Other acute back pain M54.9 and Lumbar disc disease M51.9 [facility] [address] [id number] [address] [place] [address] Nov, Lumbar disc disease M51.9 [facility] [address] [id number] [address] [place] [address] Nov, [facility] [address] [id number] [address] [place] [address] Oct, Lumbar disc disease M51.9 [facility] [address] [id number] [address] [place] [address] Oct, [facility] [address] [id number] Oct, Polyneuropathy associated with underlying disease G63 ; Type 2 diabetes mellitus without complication, without long-term current use of insulin E11.9 and Family history of CVA Z82.3 [facility] [address] [id number] [address] [place] [address] Sep, Lumbar disc disease M51.9 [place] [address] [facility] [id number] [address] [place] [address] Sep, [place] [address] [id number] [address] [place] [address] August, Lumbar disc disease M51.9 [place] [address] [facility] [id number] [address] [place] [address] August, [facility] [address] [id number] August, Meniere''s disease, unspecified laterality H81.09 and Type 2 diabetes mellitus without complication, without long-term current use of insulin E11.9 [place] [address] [facility] [id number] [address] [place] [address] August, BMI 40.0-44.9, adult Z68.41 and Anxiety F41.9 [place] [address] [facility] [id number] [address] [place] [address] Jul, Lumbar disc disease M51.9 [place] [address] [facility] [id number] [address] [place] [address] Jul, Generalized anxiety disorder F41.1 [place] [address] [facility] [id number] [address] [place] [address] Jul, [place] [address] [facility] [id number] [address] [place] [address] Jul, [facility]bar disc disease M51.9 [facility] [address] [id number] Jun, Urinary tract infection without hematuria, site unspecified N39.0 ; Bilateral impacted cerumen H61.23 ; Loose stools R19.5 and Type 2 diabetes mellitus without complication, without long-term current use of insulin E11.9 [facility] [address] [facility] [id number] [address] [place] [address] Jun, [place] [address] [facility] [id number] [address] [place] [address] Jun, Fibromyalgia M79.7 [facility] [address] [facility] [id number] [address] [place] [address] 12 Jun, 2017 Breast mass, right N63.10 [place] [address] [facility] [id number] [address] [place] [address] 09 Jun, 2017 Breast mass, right N63.[address] [id number] Jun, Breast mass, right N63.10 ; Type 2 diabetes mellitus without complication, without long-term current use of insulin E11.9 and Fibromyalgia M79.7 [place] [address] [facility] [id number] [address] [place] [address] Jun, Gastroesophageal reflux dise ase without esophagitis K21.9 [place] [address] [id number] [place] [id number] Jun, Lumbar disc disease M51.9 [facility] [address] [facility] [id number] [address] [place] [address] May, [facility] [address] [id number] [place] [id number] May, [facility] [address] [id number] [place] [id number] May, [place] [address] [id number] [place] [id number] May, Lumbar disc disease M51.9 [facility] [address] [id number] [place] [id number] Apr, [facility] [id number] Apr, Viral upper respiratory tract infection J06.9 and Impacted cerumen, bilateral H61.23 [facility] [address] [id number] [place] [id number] Apr, [facility] [address] [facility] [id number] [address] [place] [address] Apr, [facility] [address] [id number] [place] [id number] Apr, Lumbar disc disease M51.[address] [id number] Mar, Lumbar disc disease M51.9 and Fibromyalgia M79.7 [facility] [address] [facility] [id number] [address] [place] [address] Mar, [facility] [address] [id number] [place] [id number] Feb, [facility] [address] [facility] [id number] [address] [place] [address] Jan, Type 2 diabetes mellitus wit hout complication, without long-term current use of insulin E11.[address] [id number] Jan, Type 2 diabetes mellitus without complication, without long-term current use of insulin E11.9 ; Fibromyalgia M79.7 and Lumbar disc disease M51.9 [facility] [address] [id number] [place] [id number] Jan, [facility] [address] [id number] [place] [id number] Jan, [facility] [address] [id number] [address] [place] [address] Dec, [facility] [address] [id number] [place] [id number] Dec, [facility] [address] [id number] [place] [id number] Dec, [facility] [address] [id number] [place] [id number] Nov, Pre-procedure lab exam Z01.812 [facility] [address] [id number] [address] [place] [address], [place] [address] Nov, Ventral hernia without obstr uction or gangrene K43.9 [facility] [address] [id number] [place] [id number] Nov, [facility] [address] [id number] [place] [id number] Nov, [facility] [address] [id number] Nov, Ventral hernia without obstruction or gangrene K43.9 [facility] [address] [facility] [id number] Nov, Fibromyalgia M79.7 and Polyneuropathy associated with underlying disease G63 [facility] [address] [id number] [address] [place] [address], [place] [address] Oct, [facility] [address] [id number] [place] [id number] Oct, [facility] [address] [id number] [place] [id number] Oct, [facility] [address] [id number] [place] [id number] Oct, [facility] [address] [id number] [place] [id number] Sep, [facility] [address] [id number] [address] [place] [address], [place] [address] Sep, [facility] [address] [id number] [address] [place] [address] Sep, [facility] [address] [id number] [address] [place] [address] August, [facility] [address] [place] [id number] August, Right medial knee pain M25.561 [facility] [address] [id number] [address] [facility] [address] August, [facility] [address] [id number] [facility] [place] [address] August, [facility] [address] [id number] [address] [place] [address], [place] [address] August, [facility] [address] [id number] [place] [id number] August, [facility] [address] [id number] [facility] [address] August, [facility] [address] [id number] [place] [id number] August, [facility] [address] [id number] [place] [id number] Jul, [facility] [address] [id number] [address] [place] [address], [place] [address] Jul, [facility] [address] [id number] [place] [id number] Jul, [facility] [address] [id number] [address] [place] [address], [place] [address] Jun, [facility] [address] [id number] [address] [place] [address], [place] [address] Jun, [facility] [address] [id number] [address] [place] [address], [place] [address] May, [facility] [address] [id number] [address] [place] [address], [place] [address] May, [facility] [address] [id number] [address] [place] [address], [place] [address] May, [facility] [address] [id number] [address] [address] May, [facility] [address] [id number] [address] [place] [address] Apr, [facility] [address] [id number] Apr, Upper respiratory infection with cough and congestion J06.9 [facility] [id number] [place] [id number] Apr, [facility] [address] [id number] [address] [place] [address] Apr, [facility] [address] [id number] [address] [place] [address] Mar, [facility] [address] [id number] [address] [place] [address] Mar, [facility] [address] [facility] [id number] [address] [place] [address] Mar, Other chronic pain G89.29 [facility] [address] [id number] [address] [place] [address] Mar, [facility] [address] [facility] [id number] [address] [place] [id number] Mar, [facility] [address] [facility] [id number] [address] [place] [address] Feb, [facility] [address] [facility] [id number] [address] [place] [address] Feb, [facility] [address] [id number] Feb, Insomnia, unspecified type G47.00 and Swelling of face R22.0 [facility] [address] [id number] [address] [place] [address] Feb, [facility] [address] [facility] [id number] [address] [place] [id number] 14 Feb, 2016 [facility] [address] [id number] [address] [place] [phone] 07 Feb, 2016 [facility] [address] [id number] [address] [place] [address] Feb, [facility] [address] [id number] [address] [place] [address] 24 Jan, 2016 [facility] [address] [id number] [address] [place] [address] Jan, [facility] [address] [id number] [address] [place] [address] Jan, Neurogenic bladder N31.9 [facility] [address] [id number] [address] [place] [address] Jan, [facility] [address] [id number] [address] [place] [address] Jan, [facility] [address] [id number] [address] [place] [address] Jan, [facility] [address] [id number] [address] [place] [address] Jan, [facility] [address] [id number] [address] [place] [address] Jan, Screening for breast cancer Z12.39 [facility] [address] [id number] [address] [place] [address] Jan, [facility] [address] [id number] [address] [place] [address] 27 Dec, 2015 Type 2 diabetes mellitus wit hout complication, without long-term current use of insulin E11.9 ; Lumbar disc disease M51.9 ; Polyneuropathy associated with underlying disease G63 and Neurogenic bladder N31.9 [facility] [address] [id number] [address] [place] [address] 16 Dec, 2015 [facility] [address] [id number] [address] [place] [phone] 14 Sep, 2016 Other chronic pain G89.29 [facility] [address] [id number] [address] [place] [address] 12 Dec, 2015 [facility] [address] [id number] [address] [place] [address] Nov, [facility] [address] [id number] [address] [place] [address] Nov, [facility] [address] [id number] [address] [place] [address] Nov, Type 2 diabetes mellitus wit hout [...] anemia, unspecified iron deficiency anemia type D50.9 [facility] [address] [id number] [address] [place] [address] Nov, [facility] [address] [id number] [address] [place] [address] Nov, [facility] [address] [id number] [address] [place] [address] Nov, [facility] [address] [id number] [address] [place] [address] Nov, [facility] [address] [id number] [address] [place] [address] Nov, [facility] [address] [id number] [address] [place] [address] Nov, [facility] [address] [id number] [address] [place] [address] Nov, [facility] [address] [id number] [address] [place] [id number] 14 Jul, 2014 [facility] [address] [facility] [id number] [address] [place] [id number] Jul, [facility] [address] [facility] [id number] [address] [place] [address] August, [facility] [address] [facility] [id number] [address] [place] [id number] Jun, [facility] [address] [facility] [id number] [address] [place] [id number] Oct, IMMUNIZATIONS No Known Immunizations SOCIAL HISTORY Never Assessed REASON FOR VISIT Routine Visit PLAN OF CARE Activity Details Follow Up prn Reason: VITAL SIGNS MEDICATIONS Medication Instructions Dosage Frequency Start Date End Date Duration S tatus Zofran 4 MG Orally every 8 hrs as needed 1 tablet Jul, Active Sennosides 8.6 MG Orally Once a day 2 tablets at bedtime as needed 24h 30 day(s) Active Tylenol 325 MG Orally every 4 hrs 1 tablet as needed 4h Active Ziprasidone HCl 20 mg Orally Twice a day 1 capsule with food 12h Active Atenolol 25 MG Orally Once a day 1 tablet 24h 30 Active Glimepiride 4 MG Orally Once a day 1 tablet with breakf ast or the first main meal of the day 24h Active Adult Aspirin EC Low Strength 81 MG Orally Once a day 1 tablet 24h Oct, Oct, 90 days Active Polysaccharide Iron Complex 150 MG Orally Twice a day 1 capsule 12h Active Victoza 18 MG/3ML Subcutaneous Once a day inject 1.8MG 24h 31 Active Sodium Phosphate enema Active Milk of Magnesia Concentrate 2400 MG/10ML Orally daily 30ml as needed 24 h Active Nystatin - Active Magnesium Oxide 500 MG Orally Once a day 1 tablet as needed 24h Active Nystatin & Diaper Rash Product Active Metformin HCl 1000 MG TAKE 1 TABLET BY MOUTH TWICE DAILY 30 Active Duloxetine HCl 30 MG Orally Once a day 3 capsules 24h 30 Active Acetaminophen 325 MG Orally every 4 hrs headache 2 capsule as needed Active Albuterol Sulfate (2.5 MG/3ML) 0.083% Inhalation every 4 hrs 3 ml a s needed 4h Not-Taking Ibuprofen 600 MG Orally Three times a day 1 tablet with food or milk as needed 8h Active MiraLax - as directed Active Pantoprazole Sodium 20 MG TAKE 1 TABLET BY MOUTH ONCE DAILY 30 Active Dicyclomine HCl 20 mg Orally 3 times a day 1 tablet 8h 30 Active Chely-Tussin 100 MG/5ML Orally every 4 hrs 10 ml as needed 4h Active Hydrocodone-Acetaminophen 7.5-325 MG Orally 2 times a day 1 tablet 12h 11 Feb, 2018 28 days Active Furosemide 20 mg Orally Once a day 1 tablet 24h Active Hydrochlorothiazide 12.5 MG TAKE 1 CAPSULE BY MOUTH TWICE DAILY 30 Not-Taking Cyclobenzaprine HCl 10 MG Orally Three times a day 1 tablet as needed 8h Active Blood Glucose Test Strip - In Vitro 3 times a day 8h Active Meclizine HCl 12.5 MG Orally every 6 hrs as needed for dizzi ness 1 tablet as needed August, Active Klor-Con M20 20 meq Orally 2 times a day 1 tablet with food 12h Active RESULTS No Results PROCEDURES Procedure Date Ordered Result Body Site Minor complication (15 mins) Mar 03, 2018 INSTRUCTIONS MEDICATIONS ADMINISTERED No Known Medications [...]
--- OUTSIDE RECORDS SUMMARY | 2019-03-30 14:01 | XMS REPORT ---
Author Author Sharifa MAHAJAN Organization [facility] Address [address] [place] [address] Care Team Providers Care Boarder Machine Name Role Phone LAURIE MAHAJAN Unavailable PROBLEMS Type Condition ICD9-CM Code MSY09-VO Code Onset Dates Condition S tatus SNOMED Code Problem Lumbar disc disease M51.9 Active 53221800 Problem Neurogenic bladder N31.9 Active 3 18187059 Problem Polyneuropathy associated with underlying disease G63 Active 397136537 Problem Anxiety F41.9 Active 15570887 Problem Generalized anxiety disorder F41.1 A ctive 26365778 Problem Insomnia, unspecified type G47.00 Act craig 356316152 Problem Type 2 diabetes mellitus wit hout complication, without long-term current use of insulin E11.9 Active 881306958 Problem Gastroesophageal reflux disease without esophagitis K21.9 Active 169354656 Problem Other chronic pain G89.29 Active 8 1079194 Problem Psychosis, unspecified psychosis type F29 Active 41006116 Problem Fibromyalgia M79.7 Active 1931557 05 Problem Nicotine abuse Z72.0 Active 02210 008 Problem Irritable bowel syndrome with diarrhea K58.0 Active 573815623 Problem Chronic pain disorder G89.4 Active 659481578 Problem Meniere disease, unspecified laterality H81.09 Active 18429090 ALLERGIES No Information ENCOUNTERS Encounter Location Date Diagnosis [facility] [address] [facility] [id number] [address] [place] [address] Feb, [facility] [address] [facility] [id number] [address] [place] [address] Feb, Lumbar disc disease M51.9 [facility] [address] [facility] [id number] [address] [place] [address] Feb, [facility] [address] [facility] [id number] [address] [place] [address] Feb, Gastroesophageal reflux dise ase without esophagitis K21.9 [facility] [address] [id number] [address] [place] [id number] Jan, Dental examination Z01.20 [facility] [address] [id number] [address] [place] [address] 17 Jan, 2018 Tooth abscess K04.7 [facility] [address] [id number] [address] [place] [address] 15 Jan, 2018 Lumbar disc disease M51.9 [facility] [address] [id number] [address] [place] [address] Jan, [facility] [address] [id number] [address] [place] [address] 14 Dec, 2017 Lumbar disc disease M51.9 [facility] [address] [place] [id number] Dec, Other acute back pain M54.9 and Lumbar disc disease M51.9 [facility] [address] [id number] [address] [place] [address] Nov, Lumbar disc disease M51.9 [facility] [address] [id number] [address] [place] [address] Nov, [facility] [address] [id number] [address] [place] [address] Oct, Lumbar disc disease M51.9 [facility] [address] [id number] [address] [place] [address] Oct, [facility] [address] [place] [id number] Oct, Polyneuropathy associated with underlying disease G63 ; Type 2 diabetes mellitus without complication, without long-term current use of insulin E11.9 and Family history of CVA Z82.3 [facility] [address] [id number] [address] [place] [address] Sep, Lumbar disc disease M51.9 [facility] [address] [facility] [id number] [address] [place] [address] Sep, [facility] [address] [facility] [id number] [address] [place] [address] August, Lumbar disc disease M51.9 [facility] [address] [facility] [id number] [address] [place] [address] August, [facility] [address] [place] [id number] August, Meniere''s disease, unspecified laterality H81.09 and Type 2 diabetes mellitus without complication, without long-term current use of insulin E11.9 [place] [address] [place] [id number] [address] [place] [address] August, BMI 40.0-44.9, adult Z68.41 and Anxiety F41.9 [facility] [address] [place] [id number] [address] [place] [address] Jul, Lumbar disc disease M51.9 [place] [address] [facility] [id number] [address] [place] [address] Jul, Generalized anxiety disorder F41.1 [facility] [address] [place] [id number] [address] [place] [address] Jul, [place] [address] [place] [id number] [address] [place] [address] Jul, [facility] M51.9 [facility] [address] [place] [id number] Jun, Urinary tract infection without hematuria, site unspecified N39.0 ; Bilateral impacted cerumen H61.23 ; Loose stools R19.5 and Type 2 diabetes mellitus without complication, without long-term current use of insulin E11.9 [place] [address] [facility] [id number] [address] [place] [address] Jun, [place] [address] [place] [id number] [address] [place] [address] Jun, Fibromyalgia M79.7 [facility] [address] [facility] [id number] [address] [place] [id number] 12 Jun, 2017 Breast mass, right N63.10 [facility] [address] [facility] [id number] [address] [place] [address] 09 Jun, 2017 Breast mass, right N63.10 [facility] [address] [place] [id number] 08 Jun, 2017 Breast mass, right N63.10 ; Type 2 diabetes mellitus without complication, without long-term current use of insulin E11.9 and Fibromyalgia M79.7 [facility] [address] [facility] [id number] [address] [place] [address] Jun, Gastroesophageal reflux dise ase without esophagitis K21.9 [facility] [address] [id number] [place] [id number] Jun, Lumbar disc disease M51.9 [facility] [address] [facility] [id number] [address] [place] [address] May, [facility] [address] [id number] [place] [id number] May, [facility] [address] [id number] [place] [id number] May, [facility] [address] [id number] [place] [id number] May, Lumbar disc disease M51.9 [facility] [address] [id number] [place] [id number] Apr, [facility] [address] [place] [id number] Apr, Viral upper respiratory tract infection J06.9 and Impacted cerumen, bilateral H61.23 [facility] [address] [id number] [place] [id number] Apr, [facility] [address] [facility] [id number] [address] [place] [address] Apr, [facility] [address] [id number] [place] [id number] Apr, Lumbar disc disease M51.9 [facility] [address] [place] [id number] Mar, Lumbar disc disease M51.9 and Fibromyalgia M79.7 [facility] [address] [id number] [address] [place] [address] Mar, [facility] [address] [id number] [place] [id number] Feb, [facility] [address] [id number] [address] [place] [address] Jan, Type 2 diabetes mellitus wit hout complication, without long-term current use of insulin E11.9 [facility] [address] [place] [id number] Jan, Type 2 diabetes mellitus without complication, without long-term current use of insulin E11.9 ; Fibromyalgia M79.7 and Lumbar disc disease M51.9 [facility] [address] [id number] [place] [id number] Jan, [facility] [address] [id number] [place] [id number] Jan, [facility] [address] [id number] [address] [place] [address] Dec, [facility] [address] [id number] [place] [id number] Dec, [facility] [address] [id number] [place] [id number] Dec, [facility] [address] [id number] [place] [id number] Nov, Pre-procedure lab exam Z01.812 [facility] [address] [id number] [address] [place] [address] Nov, Ventral hernia without obstr uction or gangrene K43.9 [facility] [address] [id number] [place] [id number] Nov, [facility] [address] [id number] [place] [id number] Nov, [facility] [address] [place] [id number] Nov, Ventral hernia without obstruction or gangrene K43.9 [facility] [address] [facility] [id number] Nov, Fibromyalgia M79.7 and Polyneuropathy associated with underlying disease G63 [facility] [address] [id number] [address] [place] [address], [place] [address] Oct, [facility] [address] [id number] [place] [id number] Oct, [facility] [address] [id number] [place] [id number] Oct, [facility] [address] [id number] [place] [id number] Oct, [facility] [address] [id number] [place] [id number] Sep, [facility] [address] [id number] [address] [place] [address] Sep, [facility] [address] [id number] [address] [place] [address] Sep, [facility] [address] [id number] [address] [place] [address] August, [facility] [address] [place] [id number] August, Right medial knee pain M25.561 [facility] [address] [id number] [address] [place] [address] August, [facility] [address] [id number] [address] [place] [address] August, [facility] [address] [id number] [address] [place] [address], [place] [address] August, [facility] [address] [id number] [place] [id number] August, [facility] [address] [id number] [address] [place] [address], [place] [address] August, [facility] [address] [id number] [place] [id number] August, [facility] [address] [id number] [place] [id number] Jul, [facility] [address] [id number] [address] [place] [address], [place] [address] Jul, [facility] [address] [id number] [place] [id number] Jul, [facility] [address] [id number] [address] [place] [address], [place] [address] Jun, [facility] [address] [id number] [address] [place] [address], [place] [address] Jun, [facility] [address] [id number] [address] [place] [address], [place] [address] May, [facility] [address] [id number] [address] [place] [address] May, [facility] [address] [id number] [address] [place] [address] May, [facility] [address] [id number] [address] [place] [address], [place] [address] May, [facility] [address] [id number] [address] [place] [address] Apr, [facility] [address] [place] [id number] Apr, Upper respiratory infection with cough and congestion J06.9 [facility] [id number] [place] [id number] Apr, [facility] [address] [id number] [address] [place] [address] Apr, [facility] [address] [id number] [address] [place] [address] Mar, [facility] [address] [id number] [address] [place] [address] Mar, [facility] [address] [id number] [address] [place] [address] Mar, Other chronic pain G89.29 [facility] [address] [id number] [address] [place] [address] Mar, [facility] [address] [id number] [address] [place] [address] Mar, [facility] [address] [id number] [address] [place] [address] Feb, [facility] [address] [id number] [address] [place] [address] Feb, [facility] [address] [place] [id number] Feb, Insomnia, unspecified type G47.00 and Swelling of face R22.0 [facility] [address] [id number] [address] [place] [address] Feb, [facility] [address] [id number] [address] [place] [address] 14 Feb, 2016 [facility] [address] [id number] [address] [place] [address] Feb, [facility] [address] [id number] [address] [place] [address] Feb, [facility] [address] [id number] [address] [place] [address] 24 Jan, 2016 [facility] [address] [id number] [address] [place] [address] 17 Jan, 2016 [facility] [address] [id number] [address] [place] [address] 14 Jan, 2016 Neurogenic bladder N31.9 [facility] [address] [id number] [address] [place] [address] 10 Jan, 2016 [facility] [address] [id number] [address] [place] [address] Jan, [facility] [address] [id number] [address] [place] [address] Jan, [facility] [address] [id number] [address] [place] [address] Jan, [facility] [address] [id number] [address] [place] [address] Jan, Screening for breast cancer Z12.39 [facility] [address] [id number] [address] [place] [address] Jan, [facility] [address] [id number] [address] [place] [address] 27 Dec, 2015 Type 2 diabetes mellitus wit hout complication, without long-term current use of insulin E11.9 ; Lumbar disc disease M51.9 ; Polyneuropathy associated with underlying disease G63 and Neurogenic bladder N31.9 [facility] [address] [id number] [address] [place] [address] 16 Dec, 2015 [facility] [address] [id number] [address] [place] [address] 14 Dec, 2016 Other chronic pain G89.29 [facility] [address] [id number] [address] [place] [address] Dec, [facility] [address] [id number] [address] [place] [address] Nov, [facility] [address] [id number] [address] [place] [address] Nov, [facility] [address] [id number] [address] [place] [address] Nov, Type 2 diabetes mellitus wit hout [...] anemia, unspecified iron deficiency anemia type D50.9 [facility] [address] [id number] [address] [place] [address] Nov, [facility] [address] [id number] [address] [place] [address] Nov, [facility] [address] [id number] [address] [place] [address] Nov, [facility] [address] [id number] [address] [place] [address] Nov, [facility] [address] [id number] [address] [place] [address] Nov, [facility] [address] [id number] [address] [place] [address] Nov, [facility] [address] [id number] [address] [place] [address] Nov, [facility] [address] [id number] [address] [place] [address] Jul, [facility] [address] [id number] [address] [place] [address] Jul, [facility] [address] [id number] [address] [place] [address] August, [facility] [address] [id number] [address] [place] [address] Jun, [facility] [address] [facility] [id number] [address] [place] [address] Oct, IMMUNIZATIONS No Known Immunizations SOCIAL HISTORY Never Assessed REASON FOR VISIT Medication Change Request PLAN OF CARE VITAL SIGNS MEDICATIONS Medication Instructions Dosage Frequency Start Date End Date Duration S tatus Magnesium Oxide 500 MG Orally Once a day 1 tablet as needed 24h Active RESULTS No Results PROCEDURES No [...]
--- OUTSIDE RECORDS SUMMARY | 2019-03-30 14:06 | XMS REPORT | Continuity of Care Document ---
Author Organization Unknown Address Unknown Phone Unavailable Allergies Active Description Code Type Severity Reaction Onset Reported/Identified Relationship to Patient Clinical Status Yes Penicillins Drug Allergy N/A N/A 10/28/2011 Yes Sulfa(Sulfonamide Antibiotics) Drug Allergy N/A N/A 10/28/2011 Yes Penicillins Drug Allergy 10/28/2011 Yes Sulfa(Sulfonamide Antibiotics) Drug Allergy 10/28/2011 Yes Penicillins [id number] Drug Aller gy Unknown N/A 12/07/2013 Yes Sulfa (Sulfonamide Antibiotics) [id number] Drug Allergy Unknown N/A 014 Yes Penicillins 476 Drug Allergy N/A N/A 03/04/2016 Confir med or Verified Yes Sulfa (Sulfonamide Antibiotics) 491 Drug Allergy N/A N/A 03/04/2016 Confirmed or Verified Yes cephalexin [id number] Drug Allerg y Mild RASH 06/30/2017 Medications There is no [...] 06/26/2011 Ot 788.1 DYSURIA 07/30/2011 Ot 564.00 UNS PEC CONSTIPATION 07/30/2011 Ot 596.89 OT ER SPECIFIED DISORDERS OF BLADDER 07/30/2011 Ot 788.1 DYSURIA 07/30/2011 Ot V13.02 PER NILS HISTORY, URINARY (TRACT) INFECT 08/05/2011 Ot 599.0 URIN TRACT INFECTION NOS 08/05/2011 Ot 788.1 DYSURIA 09/16/2011 Ot 346.90 OPAL MICHELLE UNSPECIFIED W/O INTRACT MGRN W/ 09/16/2011 Ot 784.0 HEAD ACHE 10/02/2011 Ot 599.0 URIN TRACT INFECTION NOS 10/02/2011 Ot 923.10 CON TUSION OF FOREARM 10/02/2011 Ot 959.3 ELB/ FOREARM/WRST INJ NOS 10/02/2011 Ot E000.8 OT ER EXTERNAL CAUSE STATUS 10/02/2011 Ot E849.0 ACC IDENT IN HOME 10/02/2011 Ot E888.9 FAL L NOS 10/28/2011 719.47 MELQUIADES T PAIN 10/28/2011 719.47 MELQUIADES T PAIN 11/02/2011 Ot 346.90 OPAL MICHELLE UNSPECIFIED W/O INTRACT MGRN W/ 11/02/2011 Ot 599.0 URIN TRACT INFECTION NOS 11/02/2011 Ot 788.1 DYSURIA 11/19/2011 Ot 599.0 URIN TRACT INFECTION NOS 11/19/2011 Ot 788.1 DYSURIA 01/16/2012 Ot 599.0 URIN TRACT INFECTION NOS 01/16/2012 Ot 724.5 BACK ACHE NOS 01/16/2012 Ot 788.1 DYSURIA 03/07/2012 Ot 346.90 OPAL MICHELLE UNSPECIFIED W/O INTRACT MGRN W/ 03/07/2012 Ot 599.0 URIN TRACT INFECTION NOS 03/07/2012 Ot 788.1 DYSURIA 04/11/2012 Ot V57.1 PHYS ICAL THERAPY NEC 04/11/2012 Ot V58.43 AFT ERCARE POST SURGERY INJURY/TRAUMA 04/14/2012 Ot 466.0 ACUT E BRONCHITIS 04/14/2012 Ot 786.2 COUGH 04/28/2012 Ot V57.1 PHYS ICAL THERAPY NEC 04/28/2012 Ot V58.43 AFT ERCARE POST SURGERY INJURY/TRAUMA 06/07/2012 Ot 346.90 OPAL MICHELLE UNSPECIFIED W/O INTRACT MGRN W/ 06/07/2012 Ot 599.0 URIN TRACT INFECTION NOS 06/07/2012 Ot 788.99 OTH ER SYMPTOMS INVOLVING URINARY SYSTEM 06/10/2012 735.2 GONZALEZ UX RIGIDUS 06/10/2012 735.2 GONZALEZ UX RIGIDUS 07/14/2012 Ot 346.90 OPAL MICHELLE UNSPECIFIED W/O INTRACT MGRN W/ 08/01/2012 LANA KIRKPATRICK, ARMANDO Chairez Ot 466. 0 ACUTE BRONCHITIS 08/01/2012 LANA KIRKPATRICK, ARMANDO Chairez Ot 786. 05 SHORTNESS OF BREATH 08/15/2012 SUNG DPM, DEMARCUS Q Ot 735. 2 HALLUX RIGIDUS 09/01/2012 JUSTIN KIRKPATRICK, NABIL Marti Ot 599.0 URIN TRACT INFECTION NOS 09/01/2012 JUSTIN KIRKPATRICK, NABIL Marti Ot 788.1 DYSURIA 09/21/2012 JUSTIN KIRKPATRICK, NABIL Marti Ot 346.90 MIGRAINE UNSPECIFIED W/O INTRACT MGRN W/ 09/21/2012 UJSTIN KIRKPATRICK, NABIL Marti Ot 599.0 URIN TRACT INFECTION NOS 09/21/2012 NABIL ANDERSON MD Ot 788.1 DYSURIA 12/30/2012 ABAD RODRIGUEZ MD Ot 599 .0 URIN TRACT INFECTION NOS 12/30/2012 ABAD RODRIGUEZ MD Ot 788 .1 DYSURIA 01/01/2013 NABIL ANDERSON MD Ot 599.0 URIN TRACT INFECTION NOS 01/01/2013 NABIL ANDERSON MD Ot 789.00 ABDOMINAL PAIN, UNSPECIFIED SITE 12/07/2013 ABAD RODRIGUEZ MD Ot 599 .0 URIN TRACT INFECTION NOS 12/07/2013 ABAD RODRIGUEZ MD Ot 625 .9 FEM GENITAL SYMPTOMS NOS 07/30/2014 FRANCISCO CORRALES ENGINEERING INTERN Ot 723 .1 CERVICALGIA 07/30/2014 FRANCISCO CORRAL[employer] ENGINEERING INTERN Ot 826 .0 FX PHALANX, FOOT-CLOSED 07/30/2014 FRANCISCO CORRALES ENGINEERING INTERN Ot E000.8 OTHER EXTERNAL CAUSE STATUS 07/30/2014 FRANCISCO CORRAL[employer] ENGINEERING INTERN Ot E849.0 ACCIDENT IN HOME 07/30/2014 FRANCISCO CORRALES ENGINEERING INTERN Ot E885.9 FALL FROM SLIPPING, TRIPPING, OR STUMBLI 09/13/2014 CAMILLE JARRELL DO Ot 599.0 URIN TRACT INFECTION NOS 09/13/2014 CAMILLE JARRELL DO Ot 724.2 LUMBAGO 09/14/2014 Ot V76.12 09/14/2014 Ot 611.72 09/14/2014 Ot 729.5 09/14/2014 Ot 733.82 09/14/2014 Ot 905.2 09/14/2014 Ot 996.49 09/14/2014 Ot E929.3 09/14/2014 SUNG DPM, DEMARCUS Q Ot 735. 2 09/14/2014 SUNG DPM, DEMARCUS Q Ot V72. 63 09/14/2014 ABAD RODRIGUEZ MD Ot 788 .1 09/14/2014 ALECIA KIRKPATRICK, MODESTO Herrera Ot 571 .8 09/14/2014 MODESTO ALSTON MD S Ot 599 .0 09/14/2014 MODESTO ALSTON MD S Ot 788.30 09/14/2014 ABAD RODRIGUEZ MD Ot 272 .4 09/14/2014 ABAD RODRIGUEZ MD Ot 401 .9 09/14/2014 ABAD RODRIGUEZ MD Ot V76.12 09/18/2014 CHRISSY WYATT MD Ot 724.2 LUMBAGO 09/18/2014 CHRISSY WYATT MD Ot 724.4 LUMBOSACRAL NEURITIS NOS 10/05/2014 SHERI PATTERSON Ot 720.2 SACROILIITIS NEC 10/05/2014 SHERI PATTRESON Ot 724.2 LUMBAGO 10/12/2014 ABAD RODRIGUEZ MD Ot 724 .2 10/12/2014 ABAD RODRIGUEZ MD Ot V57 .1 10/15/2014 ABAD RODRIGUEZ MD Ot 724 .2 10/15/2014 ABAD RODRIGUEZ MD Ot V57 .1 10/15/2014 ABAD RODRIGUEZ MD Ot 724 .2 10/15/2014 BAAD RODRIGUEZ MD Ot V57 .1 10/15/2014 ABAD RODRIGUEZ MD Ot 724 .2 10/15/2014 ABAD RODRIGUEZ MD Ot V57 .1 10/19/2014 FRANCISCO CORRALES ENGINEERING INTERN Ot 923.00 CONTUSION SHOULDER REG 10/19/2014 FRANCISCO CORRALES ENGINEERING INTERN Ot 959 .2 SHLDR/UPPER ARM INJ NOS 10/19/2014 FRANCISCO CORRALES ENGINEERING INTERN Ot E000.8 OTHER EXTERNAL CAUSE STATUS 10/19/2014 FRANCISCO CORRALES ENGINEERING INTERN Ot E849.0 ACCIDENT IN HOME 10/19/2014 FRANCISCO CORRALES ENGINEERING INTERN Ot E888.1 FALL STRIKING OBJECT NEC 10/23/2014 SHERI PATTERSON Ot 720.2 10/23/2014 SHERI PATTERSON Ot 724.2 11/06/2014 ABAD RODRIGUEZ MD Ot 724 .2 11/06/2014 ABAD RODRIGUEZ MD Ot V57 .1 11/06/2014 ABAD RODRIGUEZ MD Ot 724 .2 11/06/2014 ABAD RODRIGUEZ MD Ot V57 .1 11/06/2014 ABAD RODRIGUEZ MD Ot 724 .2 11/06/2014 ABAD RODRIGUEZ MD Ot V57 .1 11/09/2014 ABAD RODRIGUEZ MD Ot 724 .2 11/09/2014 ABAD RODRIGUEZ MD Ot V57 .1 11/16/2014 ABAD RODRIGUEZ MD Ot 724 .2 11/16/2014 ABAD RODRIGUEZ MD Ot V57 .1 11/29/2014 ABAD RODRIGUEZ MD Ot 724 .2 LUMBAGO 11/29/2014 ABAD RODRIGUEZ MD Ot V57 .1 PHYSICAL THERAPY NEC 01/04/2015 ABAD RODRIGUEZ MD Ot V76.12 01/15/2015 ABAD RODRIGUEZ MD Ot V76.12 03/15/2015 OTHER, UNLISTED Ot M51.37 03/15/2015 OTHER, UNLISTED Ot M79.604 03/15/2015 OTHER, UNLISTED Ot M79.605 03/27/2015 OTHER, UNLISTED Ot M51.37 03/27/2015 OTHER, UNLISTED Ot M79.604 03/27/2015 OTHER, UNLISTED Ot M79.605 04/04/2015 ABAD RODRIGUEZ MD Ot N30.20 OTHER CHRONIC CYSTITIS WITHOUT HEMATURIA 04/04/2015 ABAD RODRIGUEZ MD Ot R19 .7 DIARRHEA, UNSPECIFIED 07/19/2015 CHRISSY WYATT MD, Ot F17.210 NICOTINE DEPENDENCE, CIGARETTES, UNCOMPL 07/19/2015 CHRISSY WYATT MD Ot N39.0 URINARY TRACT INFECTION, SITE NOT SPECIF 07/19/2015 CHRISSY WYATT MD, Ot R42 DIZZINESS AND GIDDINESS 07/19/2015 CHRISSY WYATT MD Ot Z79.52 CORRECTION (CURRENT) USE OF SYSTEMIC STER 07/22/2015 CHRISSY WYATT MD Ot F17.210 NICOTINE DEPENDENCE, CIGARETTES, UNCOMPL 07/22/2015 CHRISSY WYATT MD Ot N39.0 URINARY TRACT INFECTION, SITE NOT SPECIF 07/22/2015 CHRISSY WYATT MD Ot R42 DIZZINESS AND GIDDINESS 07/22/2015 CHRISSY WYATT MD Ot Z79.52 SMOKE ROOM OPERATOR (CURRENT) USE OF SYSTEMIC STER 03/11/2016 TARA KRISHNAN MD B96.20 Unsp Escherichia coli as the cause of diseases classd elswhr 03/11/2016 TARA KRISHNAN MD D72.829 Elevated white blood cell count, unspecified 03/11/2016 TARA KRISHNAN MD E11.9 Type 2 diabetes mellitus without complications 03/11/2016 TARA KRISHNAN MD E87.6 Hypokalemia 03/11/2016 TARA KRISHNAN MD F02.81 Dementia in oth diseases classd elswhr w behavioral di sturb 03/11/2016 TARA KRISHNAN MD F33.3 Major depressv disorder, recurrent, severe w psych sym ptoms 03/11/2016 TARA KRISHNAN MD G31.09 Other frontotemporal dementia 03/11/2016 TARA KRISHNAN MD I10 Essential (primary) hypertension 03/11/2016 TARA KRISHNAN MD K21.9 Gastro-esophageal reflux disease without esophagitis 03/11/2016 TARA KRISHNAN MD N39.0 Urinary tract infection, site not specified 11/30/2016 Ot 733.82 NON UNION OF FRACTURE 11/30/2016 Ot 905.2 LATE EFFECT ARM FX 11/30/2016 Ot 996.49 [facility] COMPL OF OTH PAINT [employer] 11/30/2016 Ot E929.3 LAT E EFF ACCIDENTAL FALL 11/30/2016 SUNG DPM, DEMARCUS Q Ot 735. 2 HALLUX RIGIDUS 11/30/2016 SUNG DPM, DEMARCUS Q Ot V72. 63 PRE-PROCEDURAL LABORATORY EXAMINATION 11/30/2016 ABAD RODRIGUEZ MD Ot 788 .1 DYSURIA 11/30/2016 MODESTO ALSTON MD Ot 571 .8 CHRONIC LIVER DIS NEC 11/30/2016 MODESTO ALSTON MD Ot 599 .0 URIN TRACT INFECTION NOS 11/30/2016 MODESTO ALSTON MD Ot 788.30 UNSPECIFIED URINARY INCONTINENCE 11/30/2016 ABAD RODRIGUEZ MD Ot 272 .4 HYPERLIPIDEMIA NEC/NOS 11/30/2016 ABAD RODRIGUEZ MD Ot 401 .9 HYPERTENSION NOS 11/30/2016 ABAD RODRIGUEZ MD Ot V76.12 OTH SCREEN MAMMO-MALIGN NEOPLASM OF ANA MARIA 11/30/2016 ABAD RODRIGUEZ MD Ot V76.12 OTH SCREEN MAMMO-MALIGN NEOPLASM OF ANA MARIA 11/30/2016 OTHER, UNLISTED Ot M51.37 OTHER INTERVERTEBRAL DISC DEGENERATION, 11/30/2016 OTHER, UNLISTED Ot M79.604 PAIN IN RIGHT LEG 11/30/2016 OTHER, UNLISTED Ot M79.605 PAIN IN LEFT LEG 12/09/2016 Ot 733.82 NON UNION OF FRACTURE 12/09/2016 Ot 905.2 LATE EFFECT ARM FX 12/09/2016 Ot 996.49 [facility] COMPL OF OTH PAINT [employer] 12/09/2016 Ot E929.3 LAT E EFF ACCIDENTAL FALL 12/09/2016 SUNG DPM, DEMARCUS Q Ot 735. 2 HALLUX RIGIDUS 12/09/2016 SUNG DPM, DEMARCUS Q Ot V72. 63 PRE-PROCEDURAL LABORATORY EXAMINATION 12/09/2016 ABAD RODRIGUEZ MD Ot 788 .1 DYSURIA 12/09/2016 MODESTO ALSTON MD Ot 571 .8 CHRONIC LIVER DIS NEC 12/09/2016 MODESTO ALSTON MD Ot 599 .0 URIN TRACT INFECTION NOS 12/09/2016 MODESTO ALSTON MD Ot 788.30 UNSPECIFIED URINARY INCONTINENCE 12/09/2016 ABAD RODRIGUEZ MD Ot 272 .4 HYPERLIPIDEMIA NEC/NOS 12/09/2016 ABAD RODRIGUEZ MD Ot 401 .9 HYPERTENSION NOS 12/09/2016 ABAD RODRIGUEZ MD Ot [...] FINDINGS ON DX IMAGING OF OT 12/09/2016 Ot 733.82 NON UNION OF FRACTURE 12/09/2016 Ot 905.2 LATE EFFECT ARM FX 12/09/2016 Ot 996.49 [facility] COMPL OF OT PAINT DIPPER [employer]THOPEDIC 12/09/2016 Ot E929.3 LAT E EFF ACCIDENTAL FALL 12/09/2016 SUNG DPM, DEMARCUS Q Ot 735. 2 HALLUX RIGIDUS 12/09/2016 SUNG DPSonny, DEMARCUS Q Ot V72. 63 PRE-PROCEDURAL LABORATORY EXAMINATION 12/09/2016 ABAD RODRIGUEZ MD Ot 788 .1 DYSURIA 12/09/2016 MODESTO ALSTON MD Ot 571 .8 CHRONIC LIVER DIS NEC 12/09/2016 MODESTO ALSTON MD Ot 599 .0 URIN TRACT INFECTION NOS 12/09/2016 MODESTO ALSTON MD Ot 788.30 UNSPECIFIED URINARY INCONTINENCE 12/09/2016 ABDA RODRIGUEZ MD Ot 272 .4 HYPERLIPIDEMIA NEC/NOS 12/09/2016 ABAD RODRIGUEZ MD Ot 401 .9 HYPERTENSION NOS 12/09/2016 ABAD RODRIGUEZ MD Ot [...] RADLGC FINDINGS ON DX IMAGING OF OT 12/22/2016 LAURIE MAHAJAN Ot K76.0 FATTY (CHANGE OF) LIVER, NOT ELSEWHERE C 12/22/2016 LAURIE MAHAJAN Ot N28.9 DISORDER OF KIDNEY AND URETER, UNSPECIFI 12/22/2016 ELAN DUMONT MD Ot R93.49 ABN RADLGC FINDINGS ON DX IMAGING OF OT 06/21/2017 Ot 733.82 NON UNION OF FRACTURE 06/21/2017 Ot 905.2 LATE EFFECT ARM FX 06/21/2017 Ot 996.49 [facility] COMPL OF OTH PAINT DIPPER [employer]THOPEDIC 06/21/2017 Ot E929.3 LAT E EFF ACCIDENTAL FALL 06/21/2017 SUNG DPM, DEMARCUS Q Ot 735. 2 HALLUX RIGIDUS 06/21/2017 SUNG DPM, DEMARCUS Q Ot V72. 63 PRE-PROCEDURAL LABORATORY EXAMINATION 06/21/2017 MICHAEL KIRKPATRICK, ABAD Rain Ot 788 .1 DYSURIA 06/21/2017 ALECIA KIRKPATRICK, MODESTO S Ot 571 .8 CHRONIC LIVER DIS NEC 06/21/2017 ALECIA KIRKPATRICK, MODESTO S Ot 599 .0 URIN TRACT INFECTION NOS 06/21/2017 MODESTO ALSTON MD S Ot 788.30 UNSPECIFIED URINARY INCONTINENCE 06/21/2017 ABAD RODRIGUEZ MD Ot 272 .4 HYPERLIPIDEMIA NEC/NOS 06/21/2017 ABAD RODRIGUEZ MD Ot 401 .9 HYPERTENSION NOS 06/21/2017 ABAD RODRIGUEZ MD Ot [...] DISORDER OF KIDNEY AND URETER, UNSPECIFI 06/21/2017 JULIA KIRKPATRICK, ELAN Crawford Ot R93.49 ABN RADLGC FINDINGS ON DX IMAGING OF [facility] 06/22/2017 LAURIE MAHAJAN Ot N60.01 SOLITARY CYST OF RIGHT BREAST 06/22/2017 LAURIE MAHAJAN Ot N60.01 SOLITARY CYST OF RIGHT BREAST 06/28/2017 ELAN DUMONT MD Ot R30 .0 DYSURIA 06/28/2017 ELAN DUMONT MD Ot R35 .0 FREQUENCY OF MICTURITION 06/28/2017 ELAN DUMONT MD Ot R39.15 URGENCY OF URINATION 06/28/2017 SUNG DPM, DEMARCUS Q Ot 735. 2 HALLUX RIGIDUS 06/28/2017 SUNG DPM, DEMARCUS Q Ot V72. 63 PRE-PROCEDURAL LABORATORY EXAMINATION 06/28/2017 ABAD RODRIGUEZ MD Ot 788 .1 DYSURIA 06/28/2017 MODESTO ALSTON MD Ot 571 .8 CHRONIC LIVER DIS NEC 06/28/2017 MODESTO ALSTON MD Ot 599 .0 URIN TRACT INFECTION NOS 06/28/2017 MODESTO ALSTON MD Ot 788.30 UNSPECIFIED URINARY INCONTINENCE 06/28/2017 ABAD RODRIGUEZ MD Ot 272 .4 HYPERLIPIDEMIA NEC/NOS 06/28/2017 ABAD RODRIGUEZ MD Ot 401 .9 HYPERTENSION NOS 06/28/2017 ABAD RODRIGUEZ MD Ot [...] RIGHT BREAST 06/28/2017 ELAN DUMONT MD Ot R30 .0 DYSURIA 06/28/2017 ELAN DUMONT MD Ot R35 .0 FREQUENCY OF MICTURITION 06/28/2017 ELAN DUMONT MD Ot R39.15 URGENCY OF URINATION 06/30/2017 RAFAELA SKAGGS MD Ot E11. 40 TYPE 2 DIABETES MELLITUS WITH DIABETIC N 06/30/2017 RAFAELA SKAGGS MD Ot F32. 9 MAJOR DEPRESSIVE DISORDER, SINGLE EPISOD 06/30/2017 RAFAELA SKAGGS MD Ot M81. 0 AGE-RELATED OSTEOPOROSIS W/O CURRENT PAT 06/30/2017 RAFAELA SKAGGS MD Ot N39. 0 URINARY TRACT INFECTION, SITE NOT SPECIF 06/30/2017 RAFAELA SKAGGS MD Ot R11. 0 NAUSEA 06/30/2017 RAFAELA SKAGGS MD Ot Z79. 52 CORRECTION (CURRENT) USE OF SYSTEMIC STER 06/30/2017 RAFAELA SKAGGS MD Ot Z87. 19 PERSONAL HISTORY OF OTHER DISEASES OF TH 06/30/2017 RAFAELA SKAGGS MD Ot Z87.442 PERSONAL HISTORY OF URINARY CALCULI 06/30/2017 RAFAELA SKAGGS MD Ot Z87.828 PERSONAL HISTORY OF OTH (HEALED) PHYSICA 06/30/2017 RAFAELA SKAGGS MD Ot Z88. 0 ALLERGY STATUS TO PENICILLIN 06/30/2017 RAFAELA SKAGGS MD Ot Z88. 1 ALLERGY STATUS TO OTHER ANTIBIOTIC AGENT 06/30/2017 RAFAELA SKAGGS MD Ot Z88. 2 ALLERGY STATUS TO SULFONAMIDES STATUS 06/30/2017 RAFAELA SKAGGS MD Ot Z90. 49 ACQUIRED ABSENCE OF OTHER SPECIFIED PART 06/30/2017 RAFAELA SKAGGS MD Ot Z90.710 ACQUIRED ABSENCE OF BOTH CERVIX AND UTER 07/02/2017 RAFAELA SKAGGS MD Ot E11. 40 TYPE 2 DIABETES MELLITUS WITH DIABETIC N 07/02/2017 RAFAELA SKAGGS MD Ot F32. 9 MAJOR DEPRESSIVE DISORDER, SINGLE EPISOD 07/02/2017 RAFAELA SKAGGS MD Ot M81. 0 AGE-RELATED OSTEOPOROSIS W/O CURRENT PAT 07/02/2017 RAFAELA SKAGGS MD Ot N39. 0 URINARY TRACT INFECTION, SITE NOT SPECIF 07/02/2017 RAFAELA SKAGGS MD Ot R11. 0 NAUSEA 07/02/2017 RAFAELA SKAGGS MD Ot Z79. 52 CORRECTION (CURRENT) USE OF SYSTEMIC STER 07/02/2017 RAFAELA SKAGGS MD Ot Z87. 19 PERSONAL HISTORY OF OTHER DISEASES OF TH 07/02/2017 RAFAELA SKAGGS MD Ot Z87.442 PERSONAL HISTORY OF URINARY CALCULI 07/02/2017 RAFAELA SKAGGS MD Ot Z87.828 PERSONAL HISTORY OF OTH (HEALED) PHYSICA 07/02/2017 RAFAELA SKAGGS MD Ot Z88. 0 ALLERGY STATUS TO PENICILLIN 07/02/2017 RAFAELA SKAGGS MD Ot Z88. 1 ALLERGY STATUS TO OTHER ANTIBIOTIC AGENT 07/02/2017 RAFAELA SKAGGS MD Ot Z88. 2 ALLERGY STATUS TO SULFONAMIDES STATUS 07/02/2017 RAFAELA SKAGGS MD Ot Z90. 49 ACQUIRED ABSENCE OF OTHER SPECIFIED PART 07/02/2017 RAFAELA SKAGGS MD Ot Z90.710 ACQUIRED ABSENCE OF BOTH CERVIX AND UTER 07/02/2017 RAFAELA SKAGGS MD Ot E11. 40 TYPE 2 DIABETES MELLITUS WITH DIABETIC N 07/02/2017 RAFAELA SKAGGS MD Ot F32. 9 MAJOR DEPRESSIVE DISORDER, SINGLE EPISOD 07/02/2017 RAFAELA SKAGGS MD Ot M81. 0 AGE-RELATED OSTEOPOROSIS W/O CURRENT PAT 07/02/2017 RAFAELA SKAGGS MD Ot N39. 0 URINARY TRACT INFECTION, SITE NOT SPECIF 07/02/2017 RAFAELA SKAGGS MD Ot R11. 0 NAUSEA 07/02/2017 RAFAELA SKAGGS MD Ot Z79. 52 CORRECTION (CURRENT) USE OF SYSTEMIC STER 07/02/2017 RAFAELA SKAGGS MD Ot Z87. 19 PERSONAL HISTORY OF OTHER DISEASES OF TH 07/02/2017 RAFAELA SKAGGS MD Ot Z87.442 PERSONAL HISTORY OF URINARY CALCULI 07/02/2017 RAFAELA SKAGGS MD, Ot Z87.828 PERSONAL HISTORY OF OTH (HEALED) PHYSICA 07/02/2017 RAFAELA SKAGGS MD Ot Z88. 0 ALLERGY STATUS TO PENICILLIN 07/02/2017 RAFAELA SKAGGS MD Ot Z88. 1 ALLERGY STATUS TO OTHER ANTIBIOTIC AGENT 07/02/2017 RAFAELA SKAGGS MD Ot Z88. 2 ALLERGY STATUS TO SULFONAMIDES STATUS 07/02/2017 RAFAELA SKAGGS MD Ot Z90. 49 ACQUIRED ABSENCE OF OTHER SPECIFIED PART 07/02/2017 RAFAELA SKAGGS MD Ot Z90.710 ACQUIRED ABSENCE OF BOTH CERVIX AND UTER 07/07/2017 LAURIE MAHAJAN Ot N60.01 SOLITARY CYST OF RIGHT BREAST 07/08/2017 ELAN DUMONT MD Ot R30 .0 DYSURIA 07/08/2017 ELAN DUMONT MD Ot R35 .0 FREQUENCY OF MICTURITION 07/08/2017 ELAN DUMONT MD Ot R39.15 URGENCY OF URINATION 08/20/2017 ZAINA, LAURIE OIL PUMPER Ot E11.9 TYPE 2 DIABETES MELLITUS WITHOUT COMPLIC 08/20/2017 CIELO MAHAJANA OIL PUMPER Ot R30.0 DYSURIA 08/20/2017 CIELO MAHAJANA OIL PUMPER Ot R35.0 FREQUENCY OF MICTURITION 08/20/2017 ARIS MAHAJANNDA OIL PUMPER Ot R39.15 URGENCY OF URINATION 09/02/2017 CIELO MAHAJANA OIL PUMPER Ot E11.9 TYPE 2 DIABETES MELLITUS WITHOUT COMPLIC 09/02/2017 ARIS MAHAJANNDA OIL PUMPER Ot R30.0 DYSURIA 09/02/2017 CIELO MAHAJANA OIL PUMPER Ot R35.0 FREQUENCY OF MICTURITION 09/02/2017 CIELO MAHAJANA OIL PUMPER Ot R39.15 URGENCY OF URINATION 10/08/2017 CIELO MAHAJANA OIL PUMPER Ot N60.01 SOLITARY CYST OF RIGHT BREAST 10/20/2017 CIELO MAHAJANA OIL PUMPER Ot N60.01 SOLITARY CYST OF RIGHT BREAST 01/12/2018 SUNG DPM, DEMARCUS Q Ot 735. 2 HALLUX RIGIDUS 01/12/2018 SUNG DPM, DEMARCUS Q Ot V72. 63 PRE-PROCEDURAL LABORATORY EXAMINATION 01/12/2018 ABAD RODRIGUEZ MD Ot 788 .1 DYSURIA 01/12/2018 MDOESTO ALSTON MD S Ot 571 .8 CHRONIC LIVER DIS NEC 01/12/2018 MODESTO ALSTON MD S Ot 599 .0 URIN TRACT INFECTION NOS 01/12/2018 MODESTO ALSTON MD S Ot 788.30 UNSPECIFIED URINARY INCONTINENCE 01/12/2018 ABAD RODRIGUEZ MD Ot 272 .4 HYPERLIPIDEMIA NEC/NOS 01/12/2018 ABAD RODRIGUEZ MD Ot 401 .9 HYPERTENSION NOS 01/12/2018 ABAD RODRIGUEZ MD Ot [...] OF) LIVER, NOT ELSEWHERE C 01/12/2018 LAURIE MAHAJAN Ot N28.9 DISORDER OF KIDNEY AND URETER, UNSPECIFI 01/12/2018 ELAN DUMONT MD Ot R93.49 ABN RADLGC FINDINGS ON DX IMAGING OF OTH 01/12/2018 LAURIE MAHAJAN Ot N60.01 SOLITARY CYST OF RIGHT BREAST 01/12/2018 ELAN DUMONT MD Ot R30 .0 DYSURIA 01/12/2018 ELAN DUMONT MD Ot R35 .0 FREQUENCY OF MICTURITION 01/12/2018 ELAN DUMONT MD Ot R39.15 URGENCY OF URINATION 01/12/2018 LAURIE MAHAJAN Ot N60.01 SOLITARY CYST OF RIGHT BREAST 01/12/2018 LAURIE MAHAJAN Ot E11.9 TYPE 2 DIABETES MELLITUS WITHOUT COMPLIC 01/12/2018 LAURIE MAHAJAN Ot R30.0 DYSURIA 01/12/2018 LAURIE MAHAJAN Ot R35.0 FREQUENCY OF MICTURITION 01/12/2018 LAURIE MAHAJAN Ot R39.15 URGENCY OF URINATION 01/14/2018 BOO HERNANDEZ MD Ot 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 01/14/2018 BOO HERNANDEZ MD Ot M48.0 61 SPINAL STENOSIS, LUMBAR REGION WITHOUT N 01/26/2018 MORA HOOD MD Ot A41 .9 SEPSIS, UNSPECIFIED ORGANISM 01/26/2018 MORA HOOD MD Ot E11.42 TYPE 2 DIABETES MELLITUS WITH DIABETIC P 01/26/2018 MORA HOOD MD, Ot E66 .9 OBESITY, UNSPECIFIED 01/26/2018 MORA HOOD MD Ot F17.210 NICOTINE DEPENDENCE, CIGARETTES, UNCOMPL 01/26/2018 MORA HOOD MD, Ot F29 UNSP PSYCHOSIS NOT DUE TO A SUBSTANCE OR 01/26/2018 MORA HOOD MD Ot F32 .9 MAJOR DEPRESSIVE DISORDER, SINGLE EPISOD 01/26/2018 MORA HOOD MD, Ot F41 .9 ANXIETY DISORDER, UNSPECIFIED 01/26/2018 MORA HOOD MD, Ot H81.09 MENIERE'S DISEASE, UNSPECIFIED EAR 01/26/2018 MORA HOOD MD Ot K04 .7 PERIAPICAL ABSCESS WITHOUT SINUS 01/26/2018 MORA HOOD MD Ot K21 .9 GASTRO-ESOPHAGEAL REFLUX DISEASE WITHOUT 01/26/2018 MORA HOOD MD Ot K58 .9 IRRITABLE BOWEL SYNDROME WITHOUT DIARRHE 01/26/2018 MORA HOOD MD Ot M27 .2 INFLAMMATORY CONDITIONS OF JAWS 01/26/2018 MORA HOOD MD Ot M54 .9 DORSALGIA, UNSPECIFIED 01/26/2018 MORA HOOD MD Ot M79 .7 FIBROMYALGIA 01/26/2018 MORA HOOD MD, Ot M81 .0 AGE-RELATED OSTEOPOROSIS W/O CURRENT PAT 01/26/2018 MORA HOOD MD, Ot N31 .9 NEUROMUSCULAR DYSFUNCTION OF BLADDER, UN 01/26/2018 MORA HOOD MD Ot R65.20 SEVERE SEPSIS WITHOUT SEPTIC SHOCK 01/26/2018 MORA HOOD MD Ot Z68.41 BODY MASS INDEX (BMI) 40.0-44.9, ADULT 01/26/2018 MORA HOOD MD Ot Z79 .4 CORRECTION (CURRENT) USE OF INSULIN 01/26/2018 MORA HOOD MD Ot A41 .9 SEPSIS, UNSPECIFIED ORGANISM 01/26/2018 MORA HOOD MD Ot E11.42 TYPE 2 DIABETES MELLITUS WITH DIABETIC P 01/26/2018 MORA HOOD MD Ot E66 .9 OBESITY, UNSPECIFIED 01/26/2018 MORA HOOD MD Ot F17.210 NICOTINE DEPENDENCE, CIGARETTES, UNCOMPL 01/26/2018 MORA HOOD MD Ot F29 UNSP PSYCHOSIS NOT DUE TO A SUBSTANCE OR 01/26/2018 MORA HOOD MD Ot F32 .9 MAJOR DEPRESSIVE DISORDER, SINGLE EPISOD 01/26/2018 MORA HOOD MD Ot F41 .9 ANXIETY DISORDER, UNSPECIFIED 01/26/2018 MORA HOOD MD Ot H81.09 MENIERE'S DISEASE, UNSPECIFIED EAR 01/26/2018 MORA HOOD MD, Ot K04 .7 PERIAPICAL ABSCESS WITHOUT SINUS 01/26/2018 MORA HOOD MD, Ot K21 .9 GASTRO-ESOPHAGEAL REFLUX DISEASE WITHOUT 01/26/2018 MORA HOOD MD, Ot K58 .9 IRRITABLE BOWEL SYNDROME WITHOUT DIARRHE 01/26/2018 MORA HOOD MD, Ot M27 .2 INFLAMMATORY CONDITIONS OF JAWS 01/26/2018 MORA HOOD MD, Ot M54 .9 DORSALGIA, UNSPECIFIED 01/26/2018 MORA HOOD MD, Ot M79 .7 FIBROMYALGIA 01/26/2018 MORA HOOD MD, Ot M81 .0 AGE-RELATED OSTEOPOROSIS W/O CURRENT PAT 01/26/2018 MORA HOOD MD, Ot N31 .9 NEUROMUSCULAR DYSFUNCTION OF BLADDER, UN 01/26/2018 MORA HOOD MD Ot R65.20 SEVERE SEPSIS WITHOUT SEPTIC SHOCK 01/26/2018 MORA HOOD MD, Ot Z68.41 BODY MASS INDEX (BMI) 40.0-44.9, ADULT 01/26/2018 MORA HOOD MD, Ot Z79 .4 SMOKE ROOM OPERATOR (CURRENT) USE OF INSULIN 01/27/2018 MORA HOOD MD, Ot A41 .9 SEPSIS, UNSPECIFIED ORGANISM 01/27/2018 MORA HOOD MD Ot E11.42 TYPE 2 DIABETES MELLITUS WITH DIABETIC P 01/27/2018 MORA HOOD MD Ot E11.49 TYPE 2 DIABETES W OTH DIABETIC NEUROLOGI 01/27/2018 MORA HOOD MD, Ot E66 .9 OBESITY, UNSPECIFIED 01/27/2018 MORA HOOD MD Ot F03.90 UNSPECIFIED DEMENTIA WITHOUT BEHAVIORAL 01/27/2018 MORA HOOD MD Ot F17.210 NICOTINE DEPENDENCE, CIGARETTES, UNCOMPL 01/27/2018 MORA HOOD MD, Ot F29 UNSP PSYCHOSIS NOT DUE TO A SUBSTANCE OR 01/27/2018 MORA HOOD MD, Ot F32 .9 MAJOR DEPRESSIVE DISORDER, SINGLE EPISOD 01/27/2018 MORA HOOD MD, Ot F41 .9 ANXIETY DISORDER, UNSPECIFIED 01/27/2018 MORA HOOD MD, Ot H81.09 MENIERE'S DISEASE, UNSPECIFIED EAR 01/27/2018 MORA HOOD MD, Ot I10 ESSENTIAL (PRIMARY) HYPERTENSION 01/27/2018 MORA HOOD MD, Ot K04 .7 PERIAPICAL ABSCESS WITHOUT SINUS 01/27/2018 MORA HOOD MD, Ot K21 .9 GASTRO-ESOPHAGEAL REFLUX DISEASE WITHOUT 01/27/2018 MORA HOOD MD, Ot K58 .9 IRRITABLE BOWEL SYNDROME WITHOUT DIARRHE 01/27/2018 MORA HOOD MD, Ot M27 .2 INFLAMMATORY CONDITIONS OF JAWS 01/27/2018 MORA HOOD MD, Ot M54 .9 DORSALGIA, UNSPECIFIED 01/27/2018 MORA HOOD MD Ot M79 .7 FIBROMYALGIA 01/27/2018 MORA HOOD MD, Ot M81 .0 AGE-RELATED OSTEOPOROSIS W/O CURRENT PAT 01/27/2018 MORA HOOD MD, Ot N31 .9 NEUROMUSCULAR DYSFUNCTION OF BLADDER, UN 01/27/2018 MORA HOOD MD, Ot R45 .3 DEMORALIZATION AND APATHY 01/27/2018 MORA HOOD MD, Ot R65.20 SEVERE SEPSIS WITHOUT SEPTIC SHOCK 01/27/2018 MORA HOOD MD, Ot Z68.41 BODY MASS INDEX (BMI) 40.0-44.9, ADULT 01/27/2018 MORA HOOD MD, Ot Z79 .4 SMOKE ROOM OPERATOR (CURRENT) USE OF INSULIN 01/31/2018 BOO HERNANDEZ MD Ot 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 01/31/2018 BOO HERNANDEZ MD Ot M48.0 61 SPINAL STENOSIS, LUMBAR REGION WITHOUT N 03/11/2019 NABIL ANDERSON MD Ot B02.9 ZOSTER WITHOUT COMPLICATIONS 03/11/2019 NABIL ANDERSON MD Ot E11.40 TYPE 2 DIABETES MELLITUS WITH DIABETIC N 03/11/2019 NABIL ANDERSON MD Ot F32.9 MAJOR DEPRESSIVE DISORDER, SINGLE EPISOD 03/11/2019 NABIL ANDERSON MD, Ot K58.9 IRRITABLE BOWEL SYNDROME WITHOUT DIARRHE 03/11/2019 NABIL ANDERSON MD Ot Z79.82 SMOKE ROOM OPERATOR (CURRENT) USE OF ASPIRIN 03/11/2019 NABIL ANDERSON MD Ot Z79.84 CORRECTION (CURRENT) USE OF ORAL HYPOGLYC 03/11/2019 NABIL ANDERSON MD, Ot Z87.440 PERSONAL HISTORY OF URINARY (TRACT) INFE 03/11/2019 NABIL ANDERSON MD Ot Z87.442 PERSONAL HISTORY OF URINARY CALCULI 03/11/2019 NABIL ANDERSON MD, Ot Z87.891 PERSONAL HISTORY OF NICOTINE DEPENDENCE 03/11/2019 NABIL ANDERSON MD Ot Z88.0 ALLERGY STATUS TO PENICILLIN 03/11/2019 NABIL ANDERSON MD, Ot Z88.1 ALLERGY STATUS TO OTHER ANTIBIOTIC AGENT 03/11/2019 NABIL ANDERSON MD, Ot Z88.2 ALLERGY STATUS TO SULFONAMIDES STATUS 03/11/2019 NABIL ANDERSON MD Ot Z90.49 ACQUIRED ABSENCE OF OTHER SPECIFIED PART 03/11/2019 NABIL ANDERSON MD, Ot Z90.710 ACQUIRED ABSENCE OF BOTH CERVIX AND UTER Procedures Code Description [place] [id number] XRAY FOOT RIGHT 2 VIEWS 06/10/2012 [id number] EX CISION OF FACE SUBCU/FASCIA, OPEN APPR 01/25/2018 Results Test Result Range COMPLETE BLOOD COUNT - 03/04/16 13:34 Platelet 321 10^3u 142-424 MPV 11.3 FL 9.4-12.4 [place] # 1.32 10^3u 0.0-1.0 [place] 3.0 RBC 4.60 10^6u 4.04-6.13 [place] % 8.9 % 0-12 RDW 14.1 % [...] Urobilinogen 0.2 0.2-1.0 Urine RBC N3-5 Specific [place] 1.015 1.010-1.020 Urine WBC N21-30 Urine Bacteria [...] 289 10^3u 142-424 MPV 11.2 FL 9.4-12.4 [place] # 1.34 10^3u 0.0-1.0 RBC 4.51 10^6u 4.04-6.13 [place] % 8.7 % 0-12 RDW 14.0 % [...] % 37.7-53.7 EKG - 03/06/16 05:28 EKG [facility] COMPLETE BLOOD COUNT - 03/06/16 18:21 Platelet 300 10^3u 142-424 MPV 10.9 FL 9.4-12.4 [place] # 1.26 10^3u 0.0-1.0 RBC 4.68 10^6u 4.04-6.13 [place] % 9.0 % 0-12 RDW 14.0 % [...] 290 10^3u 142-424 MPV 10.9 FL 9.4-12.4 [place] # 1.13 10^3u 0.0-1.0 RBC 4.55 10^6u 4.04-6.13 [place] % 10.3 % 0-12 RDW 13.8 % [...] 13.9 G/DL 12.2-18.1 HCT 40.9 % 37.7-53.7 [facility] - 03/07/16 06:48 Osmo Calculated 278 MOSM 261-280 Sodium 142 MMOLL 136-145 Potassium 3.3 MMOLL 3.5-5.1 Calcium 9.5 MG/DL 8.4-10.2 BUN 14 MG/DL 7-26 Chloride 102 MMOLL 98-107 Anion GAP 14 MMOLL 5-16 Bun/Creat 16 RATIO 7-25 CO2 26 MMOLL 22-29 Glucose 166 MG/DL 70-99 Creatinine 0.9 MG/DL 0.6-1.3 COMPLETE BLOOD COUNT - 03/10/16 05:58 Platelet 257 10^3u 142-424 MPV 11.2 FL 9.4-12.4 [place] # 1.24 10^3u 0.0-1.0 RBC 4.17 10^6u 4.04-6.13 [place] % 12.2 % 0-12 RDW 13.7 % [...] 12.7 G/DL 12.2-18.1 HCT 38.3 % 37.7-53.7 [facility] - 03/10/16 05:58 Osmo Calculated 277 MOSM 261-280 Sodium 142 MMOLL 136-145 Potassium 3.3 MMOLL 3.5-5.1 Calcium 9.1 MG/DL 8.4-10.2 BUN 15 MG/DL 7-26 Chloride 104 MMOLL 98-107 Anion GAP 12 MMOLL 5-16 Bun/Creat 17 RATIO 7-25 CO2 26 MMOLL 22-29 Glucose 141 MG/DL 70-99 Creatinine 0.9 MG/DL 0.6-1.3 COMPLETE BLOOD COUNT - 03/11/16 05:27 Platelet 256 10^3u 142-424 MPV 11.0 FL 9.4-12.4 [place] # 1.20 10^3u 0.0-1.0 RBC 4.25 10^6u 4.04-6.13 [place] % 11.5 % 0-12 RDW 13.6 % [...] MG/DL 0.6-1.3 Serum or plasma urea nitrogen measuremen t (mass/volume) - 12/01/16 13:14 Serum or plasma urea nitrogen measurement (mass/volume ) 17 mg/dL 7-18 Serum or plasma creatinine measurement ( mass/volume) - 12/01/16 13:14 Serum or plasma creatinine measurement (mass/volume) 0.88 mg/dL 0.60-1.30 Serum or plasma creatinine measurement w ith calculation of estimated glomerular filtration rate - 12/01/16 13:14 Serum or plasma creatinine measurement w ith calculation of estimated glomerular filtration rate > NRG Complete urinalysis with reflex to cultu re - 12/06/16 11:48 Urine color determination YELLOW NRG Urine clarity determination CLEAR NR G Urine pH measurement by test strip 7 5-9 Specific gravity of urine by test strip 1.005 1.016-1.022 Urine protein assay by test strip, semi-quantitative NEGATIVE NEGATIVE Urine glucose detection by automated test strip 3+ NEGATIVE Erythrocytes detection in urine sediment by light micr oscopy 1+ NEGATIVE Urine ketones detection by automated test strip NE GATIVE NEGATIVE Urine nitrite detection by test strip NEGATIVE NEGATIVE Urine total bilirubin detection by test strip NEGA TIVE NEGATIVE Urine urobilinogen measurement by automated test strip (mass/volume) NORMAL NORMAL Urine leukocyte esterase detection by dipstick 3+ NEGATIVE Automated urine sediment erythrocyte cou nt by microscopy (number/high power field) [HPF] NRG Automated urine sediment leukocyte count by microscopy (number/high power field) TNTC NRG Bacteria detection in urine sediment by light microsco py LARGE NRG Crystals detection in urine sediment by light microsco py NONE NRG Casts detection in urine sediment by light microscopy NONE NRG Mucus detection in urine sediment by light microscopy SMALL NRG Complete urinalysis with reflex to culture YES NRG Renal epithelial cells detection in urin e sediment by light microscopy 0-2 NRG Bacterial urine culture - 12/06/16 11:48 Bacterial urine culture [id number] NRG COLONY COUNT 10,000/ML - 100,000/ML NRG FTX;REPORTABLE PLUS, NRG FREE TEXT ENTRY 2 MIXED GRAM POSITIVES <10,000/ML NRG FREE TEXT ENTRY 3 SENSITIVITIES REPORTED 12/08/16 8: 15 NRG Bacterial susceptibility panel - 7 11:48 Gentamicin susceptibility test by minimum inhibitory c oncentration <= NRG Trimethoprim/sulfamethoxazole susceptibi lity test by minimum inhibitoryconcentration <= NRG Ampicillin susceptibility test by minimum inhibitory c oncentration R NRG Tobramycin susceptibility test by minimum inhibitory c oncentration <= NRG Cefazolin susceptibility test by minimum inhibitory co ncentration <= NRG Ceftriaxone susceptibility test by minimum inhibitory concentration <= NRG Ampicillin/sulbactam susceptibility test by minimum inhibitory concentration 4 NRG Piperacillin/tazobactam susceptibility t est by minimum inhibitory concentration <= NRG Ciprofloxacin susceptibility test by minimum inhibitor y concentration <= NRG Meropenem susceptibility test by minimum inhibitory co ncentration <= NRG Nitrofurantoin susceptibility test by mi nimum inhibitory concentration <= NRG Aztreonam susceptibility test by minimum inhibitory co ncentration <= NRG Extended spectrum beta lactamase (ESBL) producing bacteria susceptibility test by minimum inhibitory concentration - [facility] Bacterial susceptibility panel - 7 11:48 Gentamicin susceptibility test by minimum inhibitory c oncentration R NRG Vancomycin susceptibility test by minimum inhibitory c oncentration 1 NRG Levofloxacin susceptibility test by minimum inhibitory concentration >= NRG Tetracycline susceptibility test by minimum inhibitory concentration >= NRG Ampicillin susceptibility test by minimum inhibitory c oncentration <= NRG Ciprofloxacin susceptibility test by minimum inhibitor y concentration R NRG Nitrofurantoin susceptibility test by mi nimum inhibitory concentration <= NRG Linezolid susceptibility test by minimum inhibitory co ncentration 2 [facility] Bacterial susceptibility panel - 7 11:48 Gentamicin susceptibility test by minimum inhibitory c oncentration <= NRG Trimethoprim/sulfamethoxazole susceptibi lity test by minimum inhibitoryconcentration <= NRG Ampicillin susceptibility test by minimum inhibitory c oncentration <= NRG Tobramycin susceptibility test by minimum inhibitory c oncentration <= NRG Cefazolin susceptibility test by minimum inhibitory co ncentration <= NRG Ceftriaxone susceptibility test by minimum inhibitory concentration <= NRG Ampicillin/sulbactam susceptibility test by minimum inhibitory concentration <= NRG Piperacillin/tazobactam susceptibility t est by minimum inhibitory concentration <= NRG Ciprofloxacin susceptibility test by minimum inhibitor y concentration <= NRG Meropenem susceptibility test by minimum inhibitory co ncentration <= NRG Nitrofurantoin susceptibility test by mi nimum inhibitory concentration 128 NRG Aztreonam susceptibility test by minimum inhibitory co ncentration <= NRG Complete urinalysis with reflex to cultu re - 06/23/17 13:50 Urine color determination YELLOW NRG Urine clarity determination CLEAR NR G Urine pH measurement by test strip 7 5-9 Specific gravity of urine by test strip 1.005 1.016-1.022 Urine protein assay by test strip, semi-quantitative NEGATIVE NEGATIVE Urine glucose detection by automated test strip NE GATIVE NEGATIVE Erythrocytes detection in urine sediment by light micr oscopy NEGATIVE NEGATIVE Urine ketones detection by automated test strip NE GATIVE NEGATIVE Urine nitrite detection by test strip NEGATIVE NEGATIVE Urine total bilirubin detection by test strip NEGA TIVE NEGATIVE Urine urobilinogen measurement by automated test strip (mass/volume) NORMAL NORMAL Urine leukocyte esterase detection by dipstick 2+ NEGATIVE Automated urine sediment erythrocyte cou nt by microscopy (number/high power field) NONE NRG Automated urine sediment leukocyte count by microscopy (number/high power field) [HPF] NRG Bacteria detection in urine sediment by light microsco py LARGE NRG Squamous epithelial cells detection in u rine sediment by light microscopy 2-5 NRG Crystals detection in urine sediment by light microsco py NONE NRG Casts detection in urine sediment by light microscopy NONE NRG Mucus detection in urine sediment by light microscopy NEGATIVE NRG Complete urinalysis with reflex to culture YES NRG Bacterial urine culture - 06/23/17 13:50 Bacterial urine culture [id number] NRG COLONY COUNT >100,000/ML NRG FTX;REPORTABLE SENSITIVITY REPORTED 06/25/17 10:15 NRG FREE TEXT ENTRY 2 PLUS, NRG FREE TEXT ENTRY 3 MIXED GRAM POSITIVES <10,000/ML NRG Bacterial susceptibility panel - 8 13:50 Gentamicin susceptibility test by minimum inhibitory c oncentration <= NRG Trimethoprim/sulfamethoxazole susceptibi lity test by minimum inhibitoryconcentration S NRG Ampicillin susceptibility test by minimum inhibitory c oncentration R NRG Tobramycin susceptibility test by minimum inhibitory c oncentration <= NRG Cefazolin susceptibility test by minimum inhibitory co ncentration <= NRG Ceftriaxone susceptibility test by minimum inhibitory concentration <= NRG Ampicillin/sulbactam susceptibility test by minimum inhibitory concentration S NRG Piperacillin/tazobactam susceptibility t est by minimum inhibitory concentration S NRG Ciprofloxacin susceptibility test by minimum inhibitor y concentration <= NRG Meropenem susceptibility test by minimum inhibitory co ncentration <= NRG Nitrofurantoin susceptibility test by mi nimum inhibitory concentration <= NRG Aztreonam susceptibility test by minimum inhibitory co ncentration <= NRG Extended spectrum beta lactamase (ESBL) producing bacteria susceptibility test by minimum inhibitory concentration - NRG Complete blood count (CBC) with automate d white blood cell (WBC) differential - 06/30/17 18:38 Blood leukocytes automated count (number/volume) 17.9 10*3/uL 4.3-11.0 Blood erythrocytes automated count (number/volume) 4.78 10*6/uL 4.35-5.85 Venous blood hemoglobin measurement (mass/volume) 14.8 g/dL 11.5-16.0 Blood hematocrit (volume fraction) 42 % 35-52 Automated erythrocyte mean corpuscular volume 88 [ foz_us] 80-99 Automated erythrocyte mean corpuscular h emoglobin (mass per erythrocyte) 31 pg 25-34 Automated erythrocyte mean corpuscular h emoglobin concentration measurement (mass/volume) 35 g/dL 32-36 Automated erythrocyte distribution width ratio 12. 7 % 10.0- 14.5 Automated blood platelet count (count/volume) 455 10*3/uL [...] 10*3 1.0-4.0 Blood monocytes automated count (number/volume) 1. 2 10*3 0.0-1.0 Automated eosinophil count 0.1 10*3/uL 0 .0-0.3 Automated blood basophil count (count/volume) 0.0 10*3/uL 0.0-0.1 Comprehensive metabolic panel - 06/30/17 18:38 Serum or plasma sodium measurement (moles/volume) 136 mmol/L 135-145 Serum or plasma potassium measurement (moles/volume) 4.1 mmol/L 3.6-5.0 Serum or plasma chloride measurement (moles/volume) 98 mmol/L 98-107 Carbon dioxide 25 mmol/L 21-32 Serum or plasma anion gap determination (moles/volume) 13 mmol/L 5-14 Serum or plasma urea nitrogen measurement (mass/volume ) 14 mg/dL 7-18 Serum or plasma creatinine measurement (mass/volume) 0.85 mg/dL 0.60-1.30 Serum or plasma urea nitrogen/creatinine mass ratio 16 NRG Serum or plasma creatinine measurement w ith calculation of estimated glomerular filtration rate > NRG Serum or plasma glucose measurement (mass/volume) 118 mg/dL 70-105 Serum or plasma calcium measurement (mass/volume) 10.0 mg/dL 8.5-10.1 Serum or plasma total bilirubin measurement (mass/volu me) 0.5 mg/dL 0.1-1.0 Serum or plasma alkaline phosphatase cheko surement (enzymatic activity/volume) 78 U/L 40-136 Serum or plasma aspartate aminotransfera se measurement (enzymatic activity/volume) 32 U/L 5-34 Serum or plasma alanine aminotransferase measurement (enzymatic activity/volume) 31 U/L 0-55 Serum or plasma protein measurement (mass/volume) 7.7 g/dL 6.4-8.2 Serum or plasma albumin measurement (mass/volume) 4.2 g/dL 3.2-4.5 Magnesium - 06/30/17 18:38 Magnesium 1.7 mg/dL 1.8-2.4 Serum or plasma troponin i.cardiac measu rement (mass/volume) - 06/30/17 18:38 Serum or plasma troponin i.cardiac measurement (mass/v olume) < ng/mL <0.30 Lipase - 06/30/17 18:38 Lipase 43 U/L 8-78 Serum or plasma C reactive protein measu rement (mass/volume) - 06/30/17 18:38 Serum or plasma C reactive protein measurement (mass/v olume) 0.94 mg/dL 0.00-0.50 Blood manual differential performed dete ction - 06/30/17 18:38 Blood monocytes/100 leukocytes 4 % NRG Manual blood segmented neutrophils/100 leukocytes 59 % NRG Blood band neutrophils/100 leukocytes 5 % NRG Manual blood lymphocytes/100 leukocytes 31 % NRG Manual eosinophils/100 leukocytes in nose 1 % NRG Manual blood basophils/100 leukocytes 0 % NRG Blood erythrocyte morphology finding identification NORMAL NRG Complete urinalysis with reflex to cultu re - 06/30/17 20:50 Urine color determination YELLOW NRG Urine clarity determination SLIGHTLY CLOUDY NRG Urine pH measurement by test strip 7 5-9 Specific gravity of urine by test strip 1.010 1.016-1.022 Urine protein assay by test strip, semi-quantitative 1+ NEGATIVE Urine glucose detection by automated test strip NE GATIVE NEGATIVE Erythrocytes detection in urine sediment by light micr oscopy 2+ NEGATIVE Urine ketones detection by automated test strip NE GATIVE NEGATIVE Urine nitrite detection by test strip POSITIVE NEGATIVE Urine total bilirubin detection by test strip NEGA TIVE NEGATIVE Urine urobilinogen measurement by automated test strip (mass/volume) NORMAL NORMAL Urine leukocyte esterase detection by dipstick 3+ NEGATIVE Automated urine sediment erythrocyte cou nt by microscopy (number/high power field) [HPF] NRG Automated urine sediment leukocyte count by microscopy (number/high power field) [HPF] NRG Bacteria detection in urine sediment by light microsco py MODERATE NRG Crystals detection in urine sediment by light microsco py NONE NRG Casts detection in urine sediment by light microscopy NONE NRG Mucus detection in urine sediment by light microscopy NEGATIVE NRG Complete urinalysis with reflex to culture YES NRG Urine drug screening test - 06/30/17 20: 50 Urine phencyclidine detection by screening method NEGATIVE NEGATIVE Urine benzodiazepines detection by screening method NEGATIVE NEGATIVE Urine cocaine detection NEGATIVE NEGATI VE Urine amphetamines detection by screening method N EGATIVE NEGATIVE Urine methamphetamine detection by screening method NEGATIVE NEGATIVE Urine cannabinoids detection by screening method N EGATIVE NEGATIVE Urine opiates detection by screening method POSITI VE NEGATIVE Urine barbiturates detection NEGATIVE N EGATIVE Screening urine tricyclic antidepressants detection NEGATIVE NEGATIVE Urine methadone detection by screening method NEGA TIVE NEGATIVE Urine oxycodone detection NEGATIVE NEGA TIVE Urine propoxyphene detection NEGATIVE N EGATIVE Bacterial urine culture - 06/30/17 20:50 Bacterial urine culture [id number] NRG COLONY COUNT >100,000/ML NRG FTX;REPORTABLE SENSITIVITY REPORTED 07/02/17 8:50 NR Bacterial susceptibility panel - 8 20:50 Gentamicin susceptibility test by minimum inhibitory c oncentration <= NRG Tobramycin susceptibility test by minimum inhibitory c oncentration <= NRG Piperacillin/tazobactam susceptibility t est by minimum inhibitory concentration S NRG Ciprofloxacin susceptibility test by minimum inhibitor y concentration <= NRG Meropenem susceptibility test by minimum inhibitory co ncentration <= NRG Cefepime susceptibility test by minimum inhibitory con centration <= NRG Bacterial urine culture - 08/18/17 08:21 Bacterial urine culture [id number] NRG COLONY COUNT >100,000/ML NRG FTX;RE[facility] 08/18/17 16:30 NRG FREE TEXT ENTRY 2 SENSITIVITY REPORTED 08/20/17 09: 05 NRG RML Sensitivity Panel - 08/18/17 08:21 Gentamicin susceptibility test by minimum inhibitory c oncentration <= NRG Trimethoprim/sulfamethoxazole susceptibi lity test by minimum inhibitoryconcentration > NRG Levofloxacin susceptibility test by minimum inhibitory concentration > NRG Ampicillin susceptibility test by minimum inhibitory c oncentration > NRG Cefazolin susceptibility test by minimum inhibitory co ncentration 8 NRG Ceftriaxone susceptibility test by minimum inhibitory concentration <= NRG Ciprofloxacin susceptibility test by minimum inhibitor y concentration > NRG Meropenem susceptibility test by minimum inhibitory co ncentration <= NRG Nitrofurantoin susceptibility test by mi nimum inhibitory concentration 64 NRG Amoxicillin and clavulanate potassium susc GIANA = NRG Complete urinalysis with reflex to cultu re - 08/18/17 13:00 Urine color determination YELLOW NRG Urine clarity determination VERY CLOUDY NRG Urine pH measurement by test strip 7 5-9 Specific gravity of urine by test strip 1.005 1.016-1.022 Urine protein assay by test strip, semi-quantitative NEGATIVE NEGATIVE Urine glucose detection by automated test strip NE GATIVE NEGATIVE Erythrocytes detection in urine sediment by light micr oscopy 2+ NEGATIVE Urine ketones detection by automated test strip NE GATIVE NEGATIVE Urine nitrite detection by test strip NEGATIVE NEGATIVE Urine total bilirubin detection by test strip NEGA TIVE NEGATIVE Urine urobilinogen measurement by automated test strip (mass/volume) NORMAL NORMAL Urine leukocyte esterase detection by dipstick 3+ NEGATIVE Automated urine sediment erythrocyte cou nt by microscopy (number/high power field) [HPF] NRG Automated urine sediment leukocyte count by microscopy (number/high power field) TNTC NRG Bacteria detection in urine sediment by light microsco py LARGE NRG Squamous epithelial cells detection in u rine sediment by light microscopy 5-10 NRG Crystals detection in urine sediment by light microsco py PRESENT NRG Casts detection in urine sediment by light microscopy NONE NRG Mucus detection in urine sediment by light microscopy NEGATIVE NRG Complete urinalysis with reflex to culture YES NRG Renal epithelial cells detection in urin e sediment by light microscopy NONE NRG Triple phosphate crystals detection in u rine sediment by light microscopy RARE NRG Urine microalbumin measurement by test s trip (mass/volume) - 08/18/17 13:00 Urine creatinine measurement (mass/volume) 71 % NRG Microalbumin [mass/volume] in urine 20.5 % 0.0-20.0 Microalbumin/creatinine [ratio] in urine 28.9 mg/g {Cre} 0.0- 30.0 Complete blood count (CBC) with automate d white blood cell (WBC) differential - 01/22/18 14:16 Blood leukocytes automated count (number/volume) 16.9 10*3/uL 4.3-11.0 Blood erythrocytes automated count (number/volume) 4.55 10*6/uL 4.35-5.85 Venous blood hemoglobin measurement (mass/volume) 13.7 g/dL 11.5-16.0 Blood hematocrit (volume fraction) 40 % 35-52 Automated erythrocyte mean corpuscular volume 88 [ foz_us] 80-99 Automated erythrocyte mean corpuscular h emoglobin (mass per erythrocyte) 30 pg 25-34 Automated erythrocyte mean corpuscular h emoglobin concentration measurement (mass/volume) 34 g/dL 32-36 Automated erythrocyte distribution width ratio 12. 8 % 10.0- 14.5 Automated blood platelet count (count/volume) 605 10*3/uL [...] 10*3 1.0-4.0 Blood monocytes automated count (number/volume) 1. 5 10*3 0.0-1.0 Automated eosinophil count 0.1 10*3/uL 0 .0-0.3 Automated blood basophil count (count/volume) 0.0 10*3/uL 0.0-0.1 PT panel in platelet poor plasma by coag ulation assay - 01/22/18 14:16 Prothrombin time (PT) in platelet poor plasma by coagu lation assay 13.8 s 12.2-14.7 INR in platelet poor plasma or blood by coagulation as say 1.1 0.8-1.4 Activated partial thromboplastin time (a PTT) in platelet poor plasma bycoagulation assay - 01/22/18 14:16 Activated partial thromboplastin time (a PTT) in platelet poor plasma bycoagulation assay 33 s 24-35 Blood lactic acid measurement (moles/vol ume) - 01/22/18 14:16 Blood lactic acid measurement [...] 5-14 Serum or plasma urea nitrogen measurement (mass/volume ) 15 mg/dL 7-18 Serum or plasma creatinine measurement (mass/volume) 0.85 mg/dL 0.60-1.30 Serum or plasma urea nitrogen/creatinine mass ratio 18 NRG Serum or plasma creatinine measurement w ith calculation of estimated glomerular filtration rate > NRG Serum or plasma glucose measurement (mass/volume) 96 mg/dL 70-105 Serum or plasma calcium measurement (mass/volume) 9.9 mg/dL 8.5-10.1 Serum or plasma total bilirubin measurement (mass/volu me) 0.4 mg/dL 0.1-1.0 Serum or plasma alkaline phosphatase cheko surement (enzymatic activity/volume) 112 U/L 40-136 Serum or plasma aspartate aminotransfera se measurement (enzymatic activity/volume) 42 U/L 5-34 Serum or plasma alanine aminotransferase measurement (enzymatic activity/volume) 44 U/L 0-55 Serum or plasma protein measurement (mass/volume) 8.0 g/dL 6.4-8.2 Serum or plasma albumin measurement (mass/volume) 4.0 g/dL 3.2-4.5 CALCIUM CORRECTED 9.9 mg/dL 8.5-10.1 Blood manual differential performed dete ction - 01/22/18 14:16 Blood monocytes/100 leukocytes 8 % NRG Manual blood segmented neutrophils/100 leukocytes 53 % NRG Blood band neutrophils/100 leukocytes 2 % NRG Manual blood lymphocytes/100 leukocytes 33 % NRG Manual eosinophils/100 leukocytes in nose 0 % NRG Manual blood basophils/100 leukocytes 0 % NRG Blood lymphocytes variant/100 leukocytes 4 % NRG Blood erythrocyte morphology finding identification NORMAL NRG Bacterial blood culture - 01/22/18 14:16 Bacterial blood culture NG NRG Gram stain microscopy - 01/22/18 14:16 Gram stain microscopy No bacteria seen NRG Bacteria identification in wound by cult ure - 01/22/18 14:16 Bacteria identification in wound by culture SEE CO MMEN NRG FREE TEXT EXTERNAL RML REPORTED SENSITIVITY 01/26 09:05 NRG QUANTITY OF GROWTH . NRG FREE TEXT ENTRY 2 MOXIFLOXACIN GIANA: >2 (NO INTERP RETATION NRG FREE TEXT ENTRY 3 MRSA REPORTED TO BRITANY ON 09: NRG RML Sensitivity Panel - 01/22/18 14:16 Oxacillin susceptibility test by minimum inhibitory co ncentration R NRG Clindamycin susceptibility test by minimum inhibitory concentration > NRG Erythromycin susceptibility test by minimum inhibitory concentration > NRG Trimethoprim/sulfamethoxazole susceptibi lity test by minimum inhibitoryconcentration S NRG Vancomycin susceptibility test by minimum inhibitory c oncentration 1 NRG Levofloxacin susceptibility test by minimum inhibitory concentration > NRG Rifampin susceptibility test by minimum inhibitory con centration <= NRG Cefazolin susceptibility test by minimum inhibitory co ncentration > NRG Linezolid susceptibility test by minimum inhibitory co ncentration <= NRG Penicillin G susceptibility test by minimum inhibitory concentration > NRG Minocycline susc GIANA <= NRG Bacterial blood culture - 01/22/18 14:40 Bacterial blood culture NG NRG Serum or plasma lactate measurement (mol es/volume) - 01/22/18 16:28 Serum or plasma lactate measurement (moles/volume) 3.18 mmol/L 0.50-2.00 Complete blood count (CBC) with automate d white blood cell (WBC) differential - 01/23/18 03:27 Blood leukocytes automated count (number/volume) 15.5 10*3/uL 4.3-11.0 Blood erythrocytes automated count (number/volume) 3.95 10*6/uL 4.35-5.85 Venous blood hemoglobin measurement (mass/volume) 11.8 g/dL 11.5-16.0 Blood hematocrit (volume fraction) 35 % 35-52 Automated erythrocyte mean corpuscular volume 89 [ foz_us] 80-99 Automated erythrocyte mean corpuscular h emoglobin (mass per erythrocyte) 30 pg 25-34 Automated erythrocyte mean corpuscular h emoglobin concentration measurement (mass/volume) 34 g/dL 32-36 Automated erythrocyte distribution width ratio 12. 7 % 10.0- 14.5 Automated blood platelet count (count/volume) 489 10*3/uL 130-400 Automated blood platelet mean volume measurement 9.2 [foz_us] 7.4-10.4 Automated blood neutrophils/100 leukocytes 58 % 42-75 Automated blood lymphocytes/100 leukocytes 31 % 12-44 Blood monocytes/100 leukocytes 10 % 0-12 Automated blood eosinophils/100 leukocytes 1 % 0-10 Automated blood basophils/100 leukocytes 0 % 0-10 Blood neutrophils automated count (number/volume) 8.9 10*3 1.8-7.8 Blood lymphocytes automated count (number/volume) 4.8 10*3 1.0-4.0 Blood monocytes automated count (number/volume) 1. 6 10*3 0.0-1.0 Automated eosinophil count 0.2 10*3/uL 0 .0-0.3 Automated blood basophil count (count/volume) 0.0 10*3/uL 0.0-0.1 Comprehensive metabolic panel - 01/23/18 03:27 Serum or plasma sodium measurement (moles/volume) 136 mmol/L 135-145 Serum or plasma potassium measurement (moles/volume) 2.9 mmol/L 3.6-5.0 Serum or plasma chloride measurement (moles/volume) 101 mmol/L 98-107 Carbon dioxide 20 mmol/L 21-32 Serum or plasma anion gap determination (moles/volume) 15 mmol/L 5-14 Serum or plasma urea nitrogen measurement (mass/volume ) 10 mg/dL 7-18 Serum or plasma creatinine measurement (mass/volume) 0.74 mg/dL 0.60-1.30 Serum or plasma urea nitrogen/creatinine mass ratio 14 NRG Serum or plasma creatinine measurement w ith calculation of estimated glomerular filtration rate > NRG Serum or plasma glucose measurement (mass/volume) 78 mg/dL 70-105 Serum or plasma calcium measurement (mass/volume) 8.8 mg/dL 8.5-10.1 Serum or plasma total bilirubin measurement (mass/volu me) 0.3 mg/dL 0.1-1.0 Serum or plasma alkaline phosphatase cheko surement (enzymatic activity/volume) 89 U/L 40-136 Serum or plasma aspartate aminotransfera se measurement (enzymatic activity/volume) 24 U/L 5-34 Serum or plasma alanine aminotransferase measurement (enzymatic activity/volume) 30 U/L 0-55 Serum or plasma protein measurement (mass/volume) 6.2 g/dL 6.4-8.2 Serum or plasma albumin measurement (mass/volume) 3.2 g/dL 3.2-4.5 CALCIUM CORRECTED 9.4 mg/dL 8.5-10.1 Blood lactic acid measurement (moles/vol ume) - 01/23/18 09:45 Blood lactic acid measurement (moles/volume) 1.80 mmol/L 0.50-2.00 Capillary blood glucose measurement by g lucometer (mass/volume) - 01/23/18 20:55 Capillary blood glucose measurement by glucometer (mas s/volume) 146 mg/dL 70-110 Capillary blood glucose measurement by g lucometer (mass/volume) - 01/24/18 05:15 Capillary blood glucose measurement by glucometer (mas s/volume) 90 mg/dL 70-110 Automated blood complete blood count ( mogram) panel - 01/24/18 06:17 Blood leukocytes automated count (number/volume) 12.3 10*3/uL 4.3-11.0 Blood erythrocytes automated count (number/volume) 4.04 10*6/uL 4.35-5.85 Venous blood hemoglobin measurement (mass/volume) 12.1 g/dL 11.5-16.0 Blood hematocrit (volume fraction) 36 % 35-52 Automated erythrocyte mean corpuscular volume 89 [ foz_us] 80-99 Automated erythrocyte mean corpuscular h emoglobin (mass per erythrocyte) 30 pg 25-34 Automated erythrocyte mean corpuscular h emoglobin concentration measurement (mass/volume) 34 g/dL 32-36 Automated erythrocyte distribution width ratio 12. 9 % 10.0- 14.5 Automated blood platelet count (count/volume) 523 10*3/uL 130-400 Automated blood platelet mean volume measurement 9.1 [foz_us] 7.4-10.4 Whole blood basic metabolic panel - 01/04 05/23 06:17 Serum or plasma sodium measurement (moles/volume) 140 mmol/L 135-145 Serum or plasma potassium measurement (moles/volume) 3.0 mmol/L 3.6-5.0 Serum or plasma chloride measurement (moles/volume) 106 mmol/L 98-107 Carbon dioxide 20 mmol/L 21-32 Serum or plasma anion gap determination (moles/volume) 14 mmol/L 5-14 Serum or plasma urea nitrogen measurement (mass/volume ) 6 mg/dL 7-18 Serum or plasma creatinine measurement (mass/volume) 0.67 mg/dL 0.60-1.30 Serum or plasma urea nitrogen/creatinine mass ratio 9 NRG Serum or plasma creatinine measurement w ith calculation of estimated glomerular filtration rate > NRG Serum or plasma glucose measurement (mass/volume) 117 mg/dL 70-105 Serum or plasma calcium measurement (mass/volume) 9.0 mg/dL 8.5-10.1 Methicillin resistant Staphylococcus aur eus (MRSA) screening culture - 01/24/18 11:26 MRSA SCREEN RESULT MRSA ISOLATED NRG Capillary blood glucose measurement by g lucometer (mass/volume) - 01/24/18 11:31 Capillary blood glucose measurement by glucometer (mas s/volume) 180 mg/dL 70-110 Capillary blood glucose measurement by g lucometer (mass/volume) - 01/24/18 15:39 Capillary blood glucose measurement by glucometer (mas s/volume) 147 mg/dL 70-110 Capillary blood glucose measurement by g lucometer (mass/volume) - 01/24/18 20:30 Capillary blood glucose measurement by glucometer (mas s/volume) 177 mg/dL 70-110 Capillary blood glucose measurement by g lucometer (mass/volume) - 01/25/18 05:05 Capillary blood glucose measurement by glucometer (mas s/volume) 95 mg/dL 70-110 Bacteria identification in isolate by an aerobe culture - 01/25/18 09:18 FREE TEXT EXTERNAL BETA LACTAMASE POSITIVE NR QUANTITY OF GROWTH . NRG Bacteria identification in isolate by anaerobe culture SEE REPORT NRG Gram stain microscopy - 01/25/18 09:18 Gram stain microscopy GRAM STAIN PERFORMED BY [facility] NRG Bacteria identification in wound by cult ure - 01/25/18 09:18 Bacteria identification in wound by culture [id number] NRG FREE TEXT EXTERNAL ID REPORTED 01/27/18 14:05 NRG QUANTITY OF GROWTH Rare NRG FREE TEXT ENTRY 3 MOXIFLOXACIN GIANA: >2 (NO INTERP ) NRG RML Sensitivity Panel - 01/25/18 09:18 Oxacillin susceptibility test by minimum inhibitory co ncentration > NRG Clindamycin susceptibility test by minimum inhibitory concentration > NRG Erythromycin susceptibility test by minimum inhibitory concentration > NRG Vancomycin susceptibility test by minimum inhibitory c oncentration 2 NRG Levofloxacin susceptibility test by minimum inhibitory concentration 4 NRG Rifampin susceptibility test by minimum inhibitory con centration <= NRG Cefazolin susceptibility test by minimum inhibitory co ncentration R NRG Linezolid susceptibility test by minimum inhibitory co ncentration <= NRG Penicillin G susceptibility test by minimum inhibitory concentration > NRG Minocycline susc GIANA <= NRG RML Sensitivity Panel - 01/25/18 09:18 Oxacillin susceptibility test by minimum inhibitory co ncentration R NRG Clindamycin susceptibility test by minimum inhibitory concentration > NRG Erythromycin susceptibility test by minimum inhibitory concentration > NRG Trimethoprim/sulfamethoxazole susceptibi lity test by minimum inhibitoryconcentration < NRG Vancomycin susceptibility test by minimum inhibitory c oncentration 1 NRG Levofloxacin susceptibility test by minimum inhibitory concentration > NRG Rifampin susceptibility test by minimum inhibitory con centration <= NRG Cefazolin susceptibility test by minimum inhibitory co ncentration > NRG Linezolid susceptibility test by minimum inhibitory co ncentration <= NRG Penicillin G susceptibility test by minimum inhibitory concentration > NRG Minocycline susc GIANA <= NRG Capillary blood glucose measurement by g lucometer (mass/volume) - 01/25/18 11:38 Capillary blood glucose measurement by glucometer (mas s/volume) 232 mg/dL 70-110 Complete blood count (CBC) with automate d white blood cell (WBC) differential - 01/25/18 12:15 Blood leukocytes automated count (number/volume) 12.1 10*3/uL 4.3-11.0 Blood erythrocytes automated count (number/volume) 3.83 10*6/uL 4.35-5.85 Venous blood hemoglobin measurement (mass/volume) 11.4 g/dL 11.5-16.0 Blood hematocrit (volume fraction) 35 % 35-52 Automated erythrocyte mean corpuscular volume 90 [ foz_us] 80-99 Automated erythrocyte mean corpuscular h emoglobin (mass per erythrocyte) 30 pg 25-34 Automated erythrocyte mean corpuscular h emoglobin concentration measurement (mass/volume) 33 g/dL 32-36 Automated erythrocyte distribution width ratio 12. 7 % 10.0- 14.5 Automated blood platelet count (count/volume) 475 10*3/uL 130-400 Automated blood platelet mean volume measurement 9.0 [foz_us] 7.4-10.4 Automated blood neutrophils/100 leukocytes 52 % 42-75 Automated blood lymphocytes/100 leukocytes 39 % 12-44 Blood monocytes/100 leukocytes 8 % 0-12 Automated blood eosinophils/100 leukocytes 2 % 0-10 Automated blood basophils/100 leukocytes 1 % 0-10 Blood neutrophils automated count (number/volume) 6.2 10*3 1.8-7.8 Blood lymphocytes automated count (number/volume) 4.7 10*3 1.0-4.0 Blood monocytes automated count (number/volume) 0. 9 10*3 0.0-1.0 Automated eosinophil count 0.2 10*3/uL 0 .0-0.3 Automated blood basophil count (count/volume) 0.1 10*3/uL 0.0-0.1 Comprehensive metabolic panel - 01/25/18 12:15 Serum or plasma sodium measurement (moles/volume) 138 mmol/L 135-145 Serum or plasma potassium measurement (moles/volume) 3.3 mmol/L 3.6-5.0 Serum or plasma chloride measurement (moles/volume) 105 mmol/L 98-107 Carbon dioxide 22 mmol/L 21-32 Serum or plasma anion gap determination (moles/volume) 11 mmol/L 5-14 Serum or plasma urea nitrogen measurement (mass/volume ) 7 mg/dL 7-18 Serum or plasma creatinine measurement (mass/volume) 0.78 mg/dL 0.60-1.30 Serum or plasma urea nitrogen/creatinine mass ratio 9 NRG Serum or plasma creatinine measurement w ith calculation of estimated glomerular filtration rate > NRG Serum or plasma glucose measurement (mass/volume) 228 mg/dL 70-105 Serum or plasma calcium measurement (mass/volume) 8.6 mg/dL 8.5-10.1 Serum or plasma total bilirubin measurement (mass/volu me) 0.2 mg/dL 0.1-1.0 Serum or plasma alkaline phosphatase cheko surement (enzymatic activity/volume) 78 U/L 40-136 Serum or plasma aspartate aminotransfera se measurement (enzymatic activity/volume) 28 U/L 5-34 Serum or plasma alanine aminotransferase measurement (enzymatic activity/volume) 25 U/L 0-55 Serum or plasma protein measurement (mass/volume) 5.8 g/dL 6.4-8.2 Serum or plasma albumin measurement (mass/volume) 3.0 g/dL 3.2-4.5 CALCIUM CORRECTED 9.4 mg/dL 8.5-10.1 Vancomycin trough - 01/25/18 12:15 Vancomycin trough 6.8 ug/mL 10.0-20.0 Capillary blood glucose measurement by g lucometer (mass/volume) - 01/25/18 16:26 Capillary blood glucose measurement by glucometer (mas s/volume) 126 mg/dL 70-110 Capillary blood glucose measurement by g lucometer (mass/volume) - 01/25/18 20:22 Capillary blood glucose measurement by glucometer (mas s/volume) 184 mg/dL 70-110 Complete blood count (CBC) with automate d white blood cell (WBC) differential - 01/26/18 04:20 Blood leukocytes automated count (number/volume) 12.6 10*3/uL 4.3-11.0 Blood erythrocytes automated count (number/volume) 3.86 10*6/uL 4.35-5.85 Venous blood hemoglobin measurement (mass/volume) 11.6 g/dL 11.5-16.0 Blood hematocrit (volume fraction) 35 % 35-52 Automated erythrocyte mean corpuscular volume 90 [ foz_us] 80-99 Automated erythrocyte mean corpuscular h emoglobin (mass per erythrocyte) 30 pg 25-34 Automated erythrocyte mean corpuscular h emoglobin concentration measurement (mass/volume) 33 g/dL 32-36 Automated erythrocyte distribution width ratio 12. 9 % 10.0- 14.5 Automated blood platelet count (count/volume) 508 10*3/uL 130-400 Automated blood platelet mean volume measurement 9.0 [foz_us] 7.4-10.4 Automated blood neutrophils/100 leukocytes 48 % 42-75 Automated blood lymphocytes/100 leukocytes 40 % 12-44 Blood monocytes/100 leukocytes 9 % 0-12 Automated blood eosinophils/100 leukocytes 3 % 0-10 Automated blood basophils/100 leukocytes 0 % 0-10 Blood neutrophils automated count (number/volume) 6.1 10*3 1.8-7.8 Blood lymphocytes automated count (number/volume) 5.0 10*3 1.0-4.0 Blood monocytes automated count (number/volume) 1. 1 10*3 0.0-1.0 Automated eosinophil count 0.4 10*3/uL 0 .0-0.3 Automated blood basophil count (count/volume) 0.0 10*3/uL 0.0-0.1 Comprehensive metabolic panel - 01/26/18 04:20 Serum or plasma sodium measurement (moles/volume) 141 mmol/L 135-145 Serum or plasma potassium measurement (moles/volume) 2.9 mmol/L 3.6-5.0 Serum or plasma chloride measurement (moles/volume) 104 mmol/L 98-107 Carbon dioxide 23 mmol/L 21-32 Serum or plasma anion gap determination (moles/volume) 14 mmol/L 5-14 Serum or plasma urea nitrogen measurement (mass/volume ) 7 mg/dL 7-18 Serum or plasma creatinine measurement (mass/volume) 0.73 mg/dL 0.60-1.30 Serum or plasma urea nitrogen/creatinine mass ratio 10 NRG Serum or plasma creatinine measurement w ith calculation of estimated glomerular filtration rate > NRG Serum or plasma glucose measurement (mass/volume) 113 mg/dL 70-105 Serum or plasma calcium measurement (mass/volume) 9.3 mg/dL 8.5-10.1 Serum or plasma total bilirubin measurement (mass/volu me) 0.3 mg/dL 0.1-1.0 Serum or plasma alkaline phosphatase cheko surement (enzymatic activity/volume) 79 U/L 40-136 Serum or plasma aspartate aminotransfera se measurement (enzymatic activity/volume) 28 U/L 5-34 Serum or plasma alanine aminotransferase measurement (enzymatic activity/volume) 27 U/L 0-55 Serum or plasma protein measurement (mass/volume) 6.1 g/dL 6.4-8.2 Serum or plasma albumin measurement (mass/volume) 3.2 g/dL 3.2-4.5 CALCIUM CORRECTED 9.9 mg/dL 8.5-10.1 Capillary blood glucose measurement by g lucometer (mass/volume) - 01/26/18 11:23 Capillary blood glucose measurement by glucometer (mas s/volume) 235 mg/dL 70-110 Capillary blood glucose measurement by g lucometer (mass/volume) - 01/26/18 15:56 Capillary blood glucose measurement by glucometer (mas s/volume) 95 mg/dL 70-110 Capillary blood glucose measurement by g lucometer (mass/volume) - 01/26/18 20:35 Capillary blood glucose measurement by glucometer (mas s/volume) 211 mg/dL 70-110 Capillary blood glucose measurement by g lucometer (mass/volume) - 01/27/18 05:22 Capillary blood glucose measurement by glucometer (mas s/volume) 127 mg/dL 70-110 Complete blood count (CBC) with automate d white blood cell (WBC) differential - 01/27/18 05:50 Blood leukocytes automated count (number/volume) 14.3 10*3/uL 4.3-11.0 Blood erythrocytes automated count (number/volume) 3.77 10*6/uL 4.35-5.85 Venous blood hemoglobin measurement (mass/volume) 11.3 g/dL 11.5-16.0 Blood hematocrit (volume fraction) 34 % 35-52 Automated erythrocyte mean corpuscular volume 89 [ foz_us] 80-99 Automated erythrocyte mean corpuscular h emoglobin (mass per erythrocyte) 30 pg 25-34 Automated erythrocyte mean corpuscular h emoglobin concentration measurement (mass/volume) 34 g/dL 32-36 Automated erythrocyte distribution width ratio 12. 7 % 10.0- 14.5 Automated blood platelet count (count/volume) 450 10*3/uL 130-400 Automated blood platelet mean volume measurement 9.2 [foz_us] 7.4-10.4 Automated blood neutrophils/100 leukocytes 50 % 42-75 Automated blood lymphocytes/100 leukocytes 39 % 12-44 Blood monocytes/100 leukocytes 8 % 0-12 Automated blood eosinophils/100 leukocytes 2 % 0-10 Automated blood basophils/100 leukocytes 0 % 0-10 Blood neutrophils automated count (number/volume) 7.2 10*3 1.8-7.8 Blood lymphocytes automated count (number/volume) 5.6 10*3 1.0-4.0 Blood monocytes automated count (number/volume) 1. 1 10*3 0.0-1.0 Automated eosinophil count 0.4 10*3/uL 0 .0-0.3 Automated blood basophil count (count/volume) 0.1 10*3/uL 0.0-0.1 Comprehensive metabolic panel - 01/27/18 05:50 Serum or plasma sodium measurement (moles/volume) 140 mmol/L 135-145 Serum or plasma potassium measurement (moles/volume) 3.2 mmol/L 3.6-5.0 Serum or plasma chloride measurement (moles/volume) 106 mmol/L 98-107 Carbon dioxide 21 mmol/L 21-32 Serum or plasma anion gap determination (moles/volume) 13 mmol/L 5-14 Serum or plasma urea nitrogen measurement (mass/volume ) 6 mg/dL 7-18 Serum or plasma creatinine measurement (mass/volume) 0.73 mg/dL 0.60-1.30 Serum or plasma urea nitrogen/creatinine mass ratio 8 NRG Serum or plasma creatinine measurement w ith calculation of estimated glomerular filtration rate > NRG Serum or plasma glucose measurement (mass/volume) 123 mg/dL 70-105 Serum or plasma calcium measurement (mass/volume) 8.9 mg/dL 8.5-10.1 Serum or plasma total bilirubin measurement (mass/volu me) 0.3 mg/dL 0.1-1.0 Serum or plasma alkaline phosphatase cheko surement (enzymatic activity/volume) 83 U/L 40-136 Serum or plasma aspartate aminotransfera se measurement (enzymatic activity/volume) 25 U/L 5-34 Serum or plasma alanine aminotransferase measurement (enzymatic activity/volume) 26 U/L 0-55 Serum or plasma protein measurement (mass/volume) 5.9 g/dL 6.4-8.2 Serum or plasma albumin measurement (mass/volume) 3.1 g/dL 3.2-4.5 CALCIUM CORRECTED 9.6 mg/dL 8.5-10.1 Blood manual differential performed dete ction - 01/27/18 05:50 Blood monocytes/100 leukocytes 4 % NRG Manual blood segmented neutrophils/100 leukocytes 47 % NRG Blood band neutrophils/100 leukocytes 0 % NRG Manual blood lymphocytes/100 leukocytes 45 % NRG Manual eosinophils/100 leukocytes in nose 3 % NRG Manual blood basophils/100 leukocytes 1 % NRG Blood erythrocyte morphology finding identification NORMAL NRG Capillary blood glucose measurement by g lucometer (mass/volume) - 01/27/18 11:06 Capillary blood glucose measurement by glucometer (mas s/volume) 170 mg/dL 70-110 Vancomycin trough - 01/27/18 12:30 Vancomycin trough 20.2 ug/mL 10.0-20.0 Encounters ACCT No. Visit Date/Time Discharge Status Pt. Type Provider Facility Loc./Unit Complaint [id number] 03/04/2016 11:00:00 03/11/2016 10:45 :00 DIS Inpatient EULOGIO KIRKPATRICK, TARA Santos [facility] [id number] 03/06/2019 01:53:00 03:38:00 DIS Outpatient JUSTIN KIRKPATRICK, NABIL Marti [facility] ER SHINGLES [id number] 01/22/2018 16:30:00 15:43:00 DIS Inpatient SANA KIRKPATRICK, MORA Fournier [facility] 4TH DENTAL ABSCESS,SEVERE S EPSIS [id number] 01/13/2018 09:59:00 23:59:59 CLS Outpatient DAVID KIRKPATRICK, BOO [place] [facility] RAD LUMBAGO [id number] 10/07/2017 09:52:00 23:59:59 CLS Outpatient LAURIE MAHAJAN [facility] RAD 3 MONTH F/U FOR LUMP [id number] 08/18/2017 13:35:00 23:59:59 CLS Outpatient LAURIE MAHAJAN [facility] LABNPT UA REFLEX TO CULTURE, MICROALBUMIN [id number] 06/30/2017 18:30:00 22:55:00 DIS Emergency SHARIFA KIRKPATRICK, RAFAELA [place] [facility] ER NAUSEA [id number] 06/23/2017 14:53:00 018 23:59:59 CLS Outpatient JULIA KIRKPATRICK, ELAN Crawford [facility] MLF [id number] 06/21/2017 09:14:00 018 23:59:59 CLS Outpatient ALURIE MAHAJAN [facility] RAD BREAST MASS,RIGHT [id number] 2016 13:25:00 017 23:59:59 CLS Outpatient ELAN DUMONT MD [facility] MLF POSSIBLE PYELONEPHRITIS SHOWN ON CT SCAN [id number] 12/01/2016 12:47:00 017 23:59:59 CLS Outpatient LAURIE MAHAJAN [facility] RAD K43.9 [id number] 07/19/2015 15:03:00 016 18:29:00 DIS Emergency CHRISSY WYATT MD [facility] ER FALL/WEAKNESS [id number] 04/04/2015 14:13:00 17:36:00 DIS Emergency ABAD RODRIGUEZ MD [facility] ER DIARRHEA [id number] 03/13/2015 12:31:00 015 23:59:59 CLS Outpatient OTHER, UNLISTED [facility] RAD DDD, RADICULOPATHY [id number] 01/02/2015 10:59:00 015 23:59:59 CLS Outpatient ABAD RODRIGUEZ MD [facility] RAD SCREENING [id number] 11/07/2014 12:55:00 015 09:31:00 DIS Outpatient ABAD RODRIGUEZ MD [facility] REHAB LOW BACK PAIN [id number] 10/19/2014 14:08:00 015 16:37:00 DIS Emergency FRANCISCO CORRALES APRN [facility] ER FALL/RT SHOULDER PAIN [id number] 10/05/2014 14:41:00 17:38:00 DIS Emergency SHERI PATTERSON [facility] ER BACK PAIN [id number] 09/18/2014 08:08:00 015 09:52:00 DIS Emergency CHRISSY WYATT MD [facility] ER BACK PAIN [id number] 09/13/2014 19:21:00 015 21:22:00 DIS Emergency CAMILLE JARRELL DO [facility] ER BACK PAIN [id number] 07/30/2014 19:13:00 21:10:00 DIS Emergency CORRALESFRANCISCO APRN [facility] ER NECK PAIN [id number] 12/07/2013 09:12:00 014 11:47:00 DIS Emergency ABAD RODRIGUEZ MD [facility] ER POSS UTI [id number] 08/30/2013 09:31:00 23:59:59 CLS Outpatient ABAD RODRIGUEZ MD [facility] RAD ROUTINE [id number] 02/07/2013 12:32:00 23:59:59 CLS Outpatient MODESTO ALSTON MD [facility] RAD URINARY RETENTION,RECUR RENT UTI [id number] 01/01/2013 02:46:00 013 06:31:00 DIS Emergency NABIL ANDERSON MD [facility] ER ABD PAIN [id number] 12/30/2012 11:36:00 15:17:00 DIS Emergency ABAD RODRIGUEZ MD [facility] ER POSS UTI/KIDNEY STONE [id number] 10/12/2012 11:13:00 23:59:59 CLS Outpatient ABAD RODRIGUEZ MD [facility] LAB DYSURIA [id number] 09/21/2012 13:04:00 013 18:02:00 DIS Emergency NABIL ANDERSON MD [facility] ER UTI SYMPTOMS [id number] 09/01/2012 11:57:00 013 13:05:00 DIS Emergency NABIL ANDERSON MD [facility] ER UTI SYMPTOMS [id number] 08/15/2012 06:04:00 013 12:17:00 DIS Outpatient SUNG DPM, DEMARCUS Q [facility] SDC HALLX RIDGID RIGHT [id number] 08/03/2012 12:47:00 23:59:59 CLS Outpatient SUNG DPM, DEMARCUS Q [facility] PREOP HALLX RIDGID RIGHT [id number] 08/01/2012 03:29:00 05:04:00 DIS Emergency ARMANDO SCHWARTZ MD [facility] ER SOA [id number] 09/14/2014 13:53:00 Document Registration [id number] 09/14/2014 13:53:00 Document Registration [id number] 09/14/2014 13:53:00 Document Registration [id number] 09/14/2014 13:53:00 Document Registration [id number] 09/14/2014 13:53:00 Document Registration [id number] 09/14/2014 13:53:00 Document Registration [id number] 09/14/2014 13:53:00 Document Registration [id number] 09/14/2014 13:53:00 Document Registration [id number] 09/14/2014 13:53:00 Document Registration [id number] 09/14/2014 13:53:00 Document Registration [id number] 09/14/2014 13:53:00 Document Registration [id number] 07/14/2012 12:42:00 Document Registration [id number] 06/07/2012 14:30:00 Document Registration [id number] 04/26/2012 13:28:00 Document Registration [id number] 04/14/2012 19:55:00 Document Registration [id number] 03/31/2012 15:26:00 Document Registration [id number] 03/07/2012 13:49:00 Document Registration [id number] 01/16/2012 14:03:00 Document Registration [id number] 01/01/2012 11:44:00 Document Registration [id number] 11/19/2011 14:47:00 Document Registration [id number] 11/02/2011 12:21:00 Document Registration [id number] 10/02/2011 11:46:00 Document Registration [id number] 09/16/2011 11:34:00 Document Registration [id number] 08/05/2011 12:32:00 Document Registration [id number] 07/30/2011 11:59:00 Document Registration [id number] 06/26/2011 15:06:00 Document Registration [id number] 04/30/2011 13:46:00 Document Registration [id number] 04/08/2011 13:20:00 Document Registration [id number] 03/27/2011 11:39:00 Document Registration [id number] 03/07/2011 11:33:00 Document Registration [id number] 01/26/2011 13:18:00 Document Registration [id number] 12/01/2010 14:12:00 Document Registration [id number] 10/26/2010 10:07:00 Document Registration [id number] 09/30/2010 12:48:00 Document Registration [id number] 06/26/2010 18:14:00 Document Registration [id number] 06/05/2010 19:12:00 Document Registration [id number] 05/10/2010 22:39:00 Document Registration [id number] 04/11/2010 14:25:00 Document Registration [id number] 03/19/2010 22:29:00 Document Registration [id number] 03/15/2010 17:01:00 Document Registration [id number] 02/07/2010 08:38:00 Document Registration [id number] 01/04/2010 09:23:00 Document Registration [id number] 11/29/2009 05:35:00 Document Registration [id number] 10/24/2009 07:58:00 Document Registration [id number] 09/17/2009 14:55:00 Document Registration [id number] 09/10/2009 14:46:00 Document Registration [id number] 05/08/2009 13:11:00 Document Registration [id number] 06/10/2012 08:31:00 06/10/2012 23:59: 59 CLS Outpatient [id number] 06/10/2012 08:31:00 Document Registration [id number] 09/28/2018 08:00:00 09/28/2018 23:59: 59 CLS Outpatient LAURIE MAHAJAN [facility]
== END 2019-03-06 03:38 | disposition home or self-care (01) ==
LOC: EDUNIT# 01:49 → ER 01:53
DX: B02.9 Zoster without complications (principal); E11.40 Type 2 diabetes mellitus with diabetic neuropathy, unspecified; K58.9 Irritable bowel syndrome, unspecified; F32.9 Major depressive disorder, single episode, unspecified; Z87.442 Personal history of urinary calculi; Z87.440 Personal history of urinary (tract) infections; Z88.1 Allergy status to other antibiotic agents; Z88.0 Allergy status to penicillin; Z88.2 Allergy status to sulfonamides; Z79.82 Long term (current) use of aspirin; Z79.84 Long term (current) use of oral hypoglycemic drugs; Z87.891 Personal history of nicotine dependence; Z90.49 Acquired absence of other specified parts of digestive tract; Z90.710 Acquired absence of both cervix and uterus
CPT/HCPCS: 96372; 99284

== ENCOUNTER → 2019-06-03 | Outpatient (CLI) | payer MEDICAID ==
[~2019-06-03] MED LIST changes: -GLIM4TAB PO; +GLIM4TAB5 PO; -HYDR-3816 PO; +LD5O35 TP; -MAGN400T6 PO; +MAGN400T8 PO
[2019-06-03 11:46] LABS: BILIRUBIN,URINE NEGATIVE (NEGATIVE); CLARITY,URINE SL CLOUDY; COLOR,URINE YELLOW; GLUCOSE, URINE (UA) NEGATIVE (NEGATIVE); KETONES,URINE NEGATIVE (NEGATIVE); LEUKOCYTE ESTERASE ,URINE 2+ (NEGATIVE); NITRITE,URINE POSITIVE (NEGATIVE); PROTEIN,URINE NEGATIVE (NEGATIVE)
[2019-06-03 12:43] LABS: BACTERIA,URINE LARGE /HPF
[2019-06-03 12:45] LABS: AMORPHOUS SEDIMENT,UR MOD AMOR URATES /LPF
[2019-06-03 12:47] LABS: SQUAMOUS EPITHELIAL CELL,UR 0-2 /HPF
== END ==
LOC: LABNPT 11:40
PROVIDERS: ATTEND Internal Medicine
DX: Z01.89 Encounter for other specified special examinations (principal); Z87.440 Personal history of urinary (tract) infections
CPT/HCPCS: 81000; 87077; 87088; 87186

== ENCOUNTER → 2021-08-15 | Outpatient (CLI) | payer MEDICAID ==
[~2021-08-15] MED LIST changes: -CIPR500T4 PO; +CIPR500T5 PO; +DICY20TA PO; -MAGN400T8 PO; +MGX400T PO; +PANT20TA18 PO; -PANT20TA3 PO; -SENN-141 PO; +SENN-234 PO
== END ==
LOC: LABNPT 16:27
PROVIDERS: ATTEND Surgery
DX: R19.7 Diarrhea, unspecified (principal)
CPT/HCPCS: 87015; 87045; 87046; 87324; 87328; 87329; 87449; 87899